=== PATIENT | female | born 1945 | race Caucasian/White ===

== ENCOUNTER 2016-08-03 21:24 | Emergency (ER) | payer MEDICARE, OTHER ==
[~2016-08-03 21:24] MED LIST: /AMLO25TA PO; /ESOM40CA PO; /PANT40TA; /WARF3TA PO; ACTO75TA; ARTIDRO OU; ASPI81TA85 PO; ATEN25TA PO; CALCIUM CITRATE + D PO; CLAR10CA3 PO; CLON1TAB PO; DARV100T; LIPI20TA PO; MACR50CA; OYST500T; PAME50CA; PROP50TA3 PO; PROPYLTHIOURACIL; TRAV0.00 OU; TRAVATAN OU; VITA-115 PO; VITAMIN D50000 UNT; [UNRECOGNIZED DRUG - OTHER]; astelin
[2016-08-03] MEDS ORDERED: GI COCKTAIL 50ML BTL(HYOSCYAMINE/MAALOX/LIDOCAINE VISCOUS)(1:3:1) As Ordered ONE (22:02)
[2016-08-03] MEDS ORDERED: ASPIRIN 81 MG CHEW TABLET As Ordered ONE (22:02)
[2016-08-03 22:13] LABS: BASO % 0.8 % (0.0-1.0); EOS # 0.2 K/mm3 (0.0-0.50); EOS % 3.2 % (0.0-3.0); LARGE UNSTAINED CELL # 0.2 K/mm3 (0.0-0.4); LARGE UNSTAINED CELL % 3.3 % (0.0-4.0); LYMPH # 1.8 K/mm3 (1.5-4.5); LYMPH % 26.3 % (24.0-44.0); MEAN CORPUSCULAR HEMOGLOBIN 29.8 pg (27.0-33.0); MEAN CORPUSCULAR HGB CONC 32.6 g/dl (32.0-36.5); MEAN CORPUSCULAR VOLUME 91.3 fl (80.0-96.0); MONO # 0.4 K/mm3 (0.0-0.8); MONO % 6.5 % (0.0-5.0); PLATELET COUNT, AUTOMATED 223 k/mm3 (150-450); RED CELL DISTRIBUTION WIDTH 13.1 % (11.5-14.5); WHITE BLOOD COUNT 6.7 K/mm3 (4.0-10.0)
[2016-08-03 22:16] LABS: INR 2.64
[2016-08-03 22:19] LABS: ANION GAP 8 MEQ/L (8-16); BLOOD UREA NITROGEN 16 MG/DL (7-18); CALCIUM LEVEL 8.9 MG/DL (8.8-10.2); CARBON DIOXIDE LEVEL 30 MEQ/L (21-32); CHLORIDE LEVEL 104 MEQ/L (98-107); CREATININE FOR GFR 0.93 MG/DL (0.55-1.02); GLOMERULAR FILTRATION RATE > 60.0 (>39); GLUCOSE, FASTING 115 MG/DL (83-110); POTASSIUM SERUM 3.8 MEQ/L (3.5-5.1); SODIUM LEVEL 142 MEQ/L (136-145)
[2016-08-03] MEDS ORDERED: KETOROLAC 30 MG/ML VIAL (J1885) As Ordered ONE (22:45)
--- NOTE | 2016-08-03 23:01 | REP ---
Clinical: Chest pain . Comparison: 02/27/2016 . Findings: The mediastinum and cardiac silhouette are stable and within normal limits for portable technique. The lung oh are clear without acute consolidation, effusion, or pneumothorax. Skeletal structures are intact. Impression: Normal portable chest x-ray Signed by Tae Qiu MD 08/03/2016 10:52 P
--- NOTE | 2016-08-04 00:26 | EDDOCDS ---
Nurse's Notes [facility] Name: Corina Estrada Age: 70 yrs Sex: Female : 1945 Arrival Date: 08/03/2016 Time: 21:24 Bed Family 1 Private MD: [place] [facility] [place]: Chest pain, unspecified Presentation: 08/03 21:31 Presenting complaint: Patient states: she has chest pain that started this morning. Pt ms18 thought it was just gas, but the pain got worse. 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 Adult Sepsis Screening: The patient does not have new or worsening altered mentation. Patient's respiratory rate is less than 22. Systolic blood pressure is greater than 100. Patient has a qSOFA score of 0- Negative Sepsis Screen. Suicide/Homicide risk assessment- the patient denies having any suicidal and/or homicidal ideations and does not present with any other emotional, behavioral or mental health complaints. 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 Transition of care: patient was not received from another setting of care. Red Flag criteria, patient assessed and taken directly to a bed. 21:31 Acuity: ROMEL Level 2 ms18 21:31 Method Of Arrival: Walkin/Carried/Asstd ms18 Triage Assessment: 21:37 General: Appears distressed, Behavior is anxious. Pain: Location: mid-sternal area Pain ms18 currently is 10 out of 10 on a pain scale. Pain radiates to left arm. Neurological: Level of Consciousness is awake, alert, obeys commands, Oriented to person, place, time. Cardiovascular: Chest pain is described as severe, quality is pressure, squeezing, radiates to left arm(s) back scapula episodes are continuous began this morning. Respiratory: Airway is patent Respiratory effort is even, unlabored. Derm: Skin is pink, warm & dry. Musculoskeletal:. Historical: - Allergies: Ciprofloxacin HCl; Codeine Sulfate; Compazine; IV Dye; Morphine; Reglan; SULFA (SULFONAMIDES); Talwin; - Home Meds: 1. Coumadin 2.5 mg Oral tab 1 tab once daily 2. Klonopin 1 mg Oral tab 1 tab 2 times per day 3. Lipitor 40 mg Oral tab 1 tab once daily 4. Nexium 40 mg Oral cpDR 1 cap 2 times per day 5. Vitamin D Oral 4000 unit daily 6. amlodipine 2.5 mg Oral tab 1 tab as needed 7. Atenolol 12.5mg Oral 1 tab as needed - PMHx: DVTx 4; Glaucoma; Hypercholesterolemia; Hypertension; Hyperthyroidism; Osteoporosis; PE X 2; Polio; COPD; - PSHx: 7 abd surgeries; ; Hernia repair- Umbilical; Cholecystectomy; Tonsillectomy; Hysteroscopy; Appendectomy; - Social history: Smoking status: Patient states former smoker of tobacco. No barriers to communication noted, The patient speaks fluent Danish. - Family history: Not pertinent. - : The pt / caregiver states he / she is not on a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. Home medication list is obtained from the patient. - Exposure Risk Screening:: None identified. Screenin:13 Screening information is obtained from the patient. Fall risk: No risks identified. cf2 Assistance ADL's: requires no assistance with activities of daily living. Abuse/DV Screen: The patient / caregiver reports he/she is: not in a situation that causes fear, pain or injury. Nutritional screening: No deficits noted. Advance Directives: Further advance directive information is declined. home support is adequate. Assessment: 22:13 General: Appears in no apparent distress, comfortable, Behavior is appropriate for age, cf2 cooperative, Denies fever, feeling ill, fatigue, chills. Pain: Denies pain. Neurological: No deficits noted. EENT: No deficits noted. Cardiovascular: Heart tones Edema is absent. Pulses are all present. Rhythm is regular Chest pain is aggravated by lying flat Chest pain began 1 day ago Reports Nausea Denies fatigue, palpitations, syncope. Respiratory: No deficits noted. GI: No deficits noted. : No deficits noted. Derm: No deficits noted. Musculoskeletal: No deficits noted. Injury Description: No known injury. 08/04 00:07 Reassessment: Patient appears in no apparent distress at this time. Patient denies pain cf2 at this time. Patient states feeling better. Patient states symptoms have improved. Adult Sepsis Screening: The patient does not have new or worsening altered mentation. Patient's respiratory rate is less than 22. Systolic blood pressure is greater than 100. Patient has a qSOFA score of 0- Negative Sepsis Screen. Vital Signs: 08/03 21:25 BP 159 / 102; Pulse 95; Resp 20 S; Temp 96.1(T); Pulse Ox 100% on R/A; Weight 67.59 kg dd6 (R); Height 5 ft. 5 in. (165.10 cm) (R); Pain 9/10; 23:51 BP 114 / 61; Pulse 73; Resp 18; Temp 97.0(O); Pulse Ox 100% on R/A; raquel 21:25 Body Mass Index 24.79 (67.59 kg, 165.10 cm) dd6 Vitals: 21:25 Log In Time: August 03, 2016 at 21:25. RN notified that patient meets Red Flag dd6 criteria. ED Course: 21:24 Patient visited by Zachery Hall PCA. dd6 21:24 NO PRIMARY PHYSICIAN, . is Private Physician. dd6 21:24 TRACY Garcia is Private Physician. dd6 21:24 Patient moved to Waiting dd6 21:26 Patient moved to 10 cz 21:27 Patient visited by Zachery Hall PCA. dd6 21:32 Triage Initiated ms18 21:38 Adela Ramirez,ARIANNA is Primary Nurse. cf2 21:38 Patient visited by Adela Ramirez RN. cf2 21:42 Abel Valdez FNP is PHCP. ke 21:42 Patient visited by Abel Valdez FNP. ke 21:42 Patient visited by Abel Valdez FNP. ke 21:42 EKG done. (by ED staff). Reviewed by Axel Genao MD. jmv 21:43 Pt greeted and oriented to ED. Patient advised of names of staff involved in care, [facility] location of call scott, wait times and NPO status. Accompanied by Family Member, Patient has correct armband on for positive identification. Placed in gown. Bed in low position. Call light in reach. Side rails up X2. surveillance monitor on. Pulse ox on. NIBP on. 21:44 Patient visited by Lavell Choudhury PCA. jmv 22:13 Patient visited by Adela Ramirez,ARIANNA. cf2 22:13 The patient / caregiver is instructed regarding the plan of care and ED course. Door cf2 closed. Noise minimized. Visitors limited. Lights dimmed. Verbal reassurance given. Warm blanket given. Pillow given. Head of bed elevated. Diet: Patient given ice chips. 22:13 No procedures done that require assistance. cf2 22:39 Patient visited by Adela Ramirez RN. cf2 23:06 Patient visited by Adela Ramirez RN. cf2 23:35 Patient visited by Abel Valdez FNP. ke 23:39 Jose [facility] is Referral Physician. ke 23:39 Rudy Andersen is Referral Physician. ke 23:43 portable chest Returned. EDMS 23:52 [facility] Payment Agreement was scanned into [employer] and attached to record. zo 01 00:07 Patient visited by Adela Ramirez RN. cf2 00:07 Inserted saline lock: 20 gauge in right antecubital area and blood collected. cf2 00:22 Patient moved to Family 1 aug 00:25 Patient visited by Adela Ramirez RN. cf2 00:25 Axel Genao MD is Attending Physician. cf2 Administered Medications: 08/03 22:10 Drug: Aspirin 324 mg [aspirin 81 mg chewable tablet (4 tabs)] Route: PO; cf2 22:10 Drug: GI Cocktail - (Alum-Mag Hydroxide-Simeth Suspension 225 mg-200 mg-25 mg/5 mL 30 cf2 ml, Lidocaine Liquid 2 % 10 ml, Hyoscyamine Liquid 10 ml) Route: PO; 22:40 Drug: ketorolac 30 mg [ketorolac 30 mg/mL (1 mL) injection solution (1 mL)] Route: IVP; cf2 Site: right antecubital; Order Results: Lab Order: Basic Metabolic Profile; SPEC'M 08/03/16 21:40 Test: GLUCOSE, FASTING; Value: 115; Range: 83-110; Abnormal: Above high normal; Units: MG/DL; Status: F Test: BLOOD UREA NITROGEN; Value: 16; Range: 7-18; Units: MG/DL; Status: F Test: CREATININE FOR GFR; Value: 0.93; Range: 0.55-1.02; Units: MG/DL; Status: F Test: GLOMERULAR FILTRATION RATE; Value: > 60.0; Range: >39; Status: F Test: SODIUM LEVEL; Value: 142; Range: 136-145; Units: MEQ/L; Status: F Test: POTASSIUM SERUM; Value: 3.8; Range: 3.5-5.1; Units: MEQ/L; Status: F Test: CHLORIDE LEVEL; Value: 104; Range: 98-107; Units: MEQ/L; Status: F Test: CARBON DIOXIDE LEVEL; Value: 30; Range: 21-32; Units: MEQ/L; Status: F Test: ANION GAP; Value: 8; Range: 8-16; Units: MEQ/L; Status: F Test: CALCIUM LEVEL; Value: 8.9; Range: 8.8-10.2; Units: MG/DL; Status: F Test Note: ; Units are mL/min/1.73 m2 Chronic Kidney Disease Staging per NKF: Stage I & II GFR >=60 Normal to Mildly Decreased Stage III GFR 30-59 Moderately Decreased Stage IV GFR 15-29 Severely Decreased Stage V GFR <15 Very Little GFR Left ESRD GFR <15 on MANAGER EMPLOYMENT Lab Order: CBC with Diff; SPEC'M 08/03/16 21:40 Test: WHITE BLOOD COUNT; Value: 6.7; Range: 4.0-10.0; Units: K/mm3; Status: F Test: RED BLOOD COUNT; Value: 4.50; Range: 4.00-5.40; Units: M/mm3; Status: F Test: HEMOGLOBIN; Value: 13.4; Range: 12.0-16.0; Units: g/dl; Status: F Test: HEMATOCRIT; Value: 41.1; Range: 36.0-47.0; Units: %; Status: F Test: MEAN CORPUSCULAR VOLUME; Value: 91.3; Range: 80.0-96.0; Units: fl; Status: F Test: MEAN CORPUSCULAR HEMOGLOBIN; Value: 29.8; Range: 27.0-33.0; Units: pg; Status: F Test: MEAN CORPUSCULAR HGB CONC; Value: 32.6; Range: 32.0-36.5; Units: g/dl; Status: F Test: RED CELL DISTRIBUTION WIDTH; Value: 13.1; Range: 11.5-14.5; Units: %; Status: F Test: PLATELET COUNT, AUTOMATED; Value: 223; Range: 150-450; Units: k/mm3; Status: F Test: NEUTROPHILS %; Value: 60.0; Range: 36.0-66.0; Units: %; Status: F Test: LYMPH %; Value: 26.3; Range: 24.0-44.0; Units: %; Status: F Test: MONO %; Value: 6.5; Range: 0.0-5.0; Abnormal: Above high normal; Units: %; Status: F Test: EOS %; Value: 3.2; Range: 0.0-3.0; Abnormal: Above high normal; Units: %; Status: F Test: BASO %; Value: 0.8; Range: 0.0-1.0; Units: %; Status: F Test: LARGE UNSTAINED CELL %; Value: 3.3; Range: 0.0-4.0; Units: %; Status: F Test: NEUTROPHILS #; Value: 4.0; Range: 1.8-7.7; Units: K/mm3; Status: F Test: LYMPH #; Value: 1.8; Range: 1.5-4.5; Units: K/mm3; Status: F Test: MONO #; Value: 0.4; Range: 0.0-0.8; Units: K/mm3; Status: F Test: EOS #; Value: 0.2; Range: 0.0-0.50; Units: K/mm3; Status: F Test: BASO #; Value: 0.0; Range: 0.0-0.2; Units: K/mm3; Status: F Test: LARGE UNSTAINED CELL #; Value: 0.2; Range: 0.0-0.4; Units: K/mm3; Status: F Lab Order: Cardiac Injury Profile; SPEC'M 08/03/16 21:40 Test: CPK CREATINE PHOSPHOKINASE; Value: 69; Range: 26-192; Units: U/L; Status: F Test: CK-MB VALUE MASS; Value: 1.0; Range: 0.0-3.6; Units: NG/ML; Status: F Test: MB/CK RELATIVE INDEX; Value: 1.44; Range: < OR =4; Status: F Test Note: ; DIAGNOSIS CRITERIA MMB ng/ml Relative Index (RI) NON-AMI < or = 5 N/A PEREIRA ZONE > 5 < or = 4 AMI > 5 > 4 Lab Order: Prothrombin Time Profile\E\INR; SPEC'M 08/03/16 21:40 Test: PROTHROMBIN TIME; Value: 28.2; Range: 12.3-14.5; Abnormal: Above high normal; Units: SECONDS; Status: F Test: INR; Value: 2.64; Status: F Test Note: ; THERAPUTIC HUMAN INR VALUES INDICATIONS NORMAL RANGES PROPHYLAXIS/TREATMENT OF: VENOUS THROMBOSIS 2.0-3.0 PULMONARY EMBOLISM 2.0-3.0 PREVENTION OF SYSTEMIC EMBOLISM FROM: TISSUE HEART VALVES 2.0-3.0 ACUTE MYOCARDIAL INFARCTION 2.0-3.0 VALVULAR HEART DISEASE 2.0-3.0 ATRIAL FIBRILLATION 2.0-3.0 MECHANICAL VALVES(HIGH RISK) 2.5-3.5 RECURRENT MYOCARDIAL INFARCTION 2.5-3.5 Lab Order: Troponin; SPEC'M 08/03/16 21:40 Test: TROPONIN I; Value: < 0.02; Range: < 0.10; Units: NG/ML; Status: F Test Note: ; Troponin I Reference Interval for RadioFrame LOCI: 99th Percentile= 0.00-0.045 ng/ml Risk Stratification: <= 0.10 ng/ml Decreased Risk for Adverse Clinical Events. 0.10-1.50 ng/ml Increased Risk for Adverse Clinical Events. Evaluation of additional criterion and/or repeat testing in 2-6 hours is suggested to rule out myocardial damage. >= 1.50 ng/ml Indicative of Myocardial Injury. Radiology Order: portable chest Test: portable chest REASON FOR EXAMINATION: Chest Pain; Clinical: Chest pain .; ; Comparison: 02/27/2016 .; ; Findings:; The mediastinum and cardiac silhouette are stable and within normal limits for; portable technique. The lung oh are clear without acute consolidation,; effusion, or pneumothorax. Skeletal structures are intact.; ; Impression:; Normal portable chest x-ray; ; ; Signed by; Tae Qiu MD 08/03/2016 10:52 P; Outcome: 23:39 Discharge ordered by Provider. tyesha 08/04 00:07 Condition: good Condition: stable. Discharge instructions given to patient. No special cf2 radiology studies were completed. Property :Personal belongings accompany Pt. 00:25 Discharge Assessment: Patient awake, alert and oriented x 3. No cognitive and/or cf2 functional deficits noted. Patient verbalized understanding of disposition instructions. Patient awake and alert. Oriented to person, place and time. patient administered narcotics - no. The following High Risk Discharge criteria are identified: None. Discharged to home ambulatory, with family. 00:25 Patient left the ED. cf2 Signatures: Dispatcher [employer] EDMS Lakshmi Bella RN RN jan Zecher, Calvin, Abel Garcia RN, SR ACCOUNT EXECUTIVE SR ACCOUNT EXECUTIVE Danny Alberto Daniell, RN STARS RN STARS dd6 Franca Cool, RN STARS RN STARS raquel Marisel Crump RN RN [id number] Adela Ramirez RN RN cf2 Lavell Choudhury, RN STARS RN STARS jmv MTDD
--- NOTE | 2016-08-04 00:26 | EDDOCDS ---
Physician Documentation [facility] Name: Corina Estrada Age: 70 yrs Sex: Female : 1945 Arrival Date: 08/03/2016 Time: 21:24 Bed Family 1 Private MD: TRACY Garcia Disposition: 08/03/16 23:39 Discharged to Home/Self Care. Impression: Chest pain, unspecified. - Condition is Stable. - Discharge Instructions: Nonspecific Chest Pain. - Medication Reconciliation, Local Pharmacy Hours form. - Follow up: TRACY Garcia; When: 2 - 3 days; Reason: Recheck today's complaints, Continuance of care. Follow up: Rudy Andersen; When: Call to arrange an appointment; Reason: Recheck today's complaints, Continuance of care. - Problem is an ongoing problem. - Symptoms are unchanged. Historical: - Allergies: Ciprofloxacin HCl; Codeine Sulfate; Compazine; IV Dye; Morphine; Reglan; SULFA (SULFONAMIDES); Talwin; - Home Meds: 1. Coumadin 2.5 mg Oral tab 1 tab once daily 2. Klonopin 1 mg Oral tab 1 tab 2 times per day 3. Lipitor 40 mg Oral tab 1 tab once daily 4. Nexium 40 mg Oral cpDR 1 cap 2 times per day 5. Vitamin D Oral 4000 unit daily 6. amlodipine 2.5 mg Oral tab 1 tab as needed 7. Atenolol 12.5mg Oral 1 tab as needed - PMHx: DVTx 4; Glaucoma; Hypercholesterolemia; Hypertension; Hyperthyroidism; Osteoporosis; PE X 2; Polio; COPD; - PSHx: 7 abd surgeries; ; Hernia repair- Umbilical; Cholecystectomy; Tonsillectomy; Hysteroscopy; Appendectomy; - Social history: Smoking status: Patient states former smoker of tobacco. No barriers to communication noted, The patient speaks fluent Slovenian. - Family history: Not pertinent. - : The pt / caregiver states he / she is not on a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. Home medication list is obtained from the patient. - Exposure Risk Screening:: None identified. Vital Signs: 08/03 21:25 BP 159 / 102; Pulse 95; Resp 20 S; Temp 96.1(T); Pulse Ox 100% on R/A; Weight 67.59 kg dd6 / 149.01 lbs (R); Height 5 ft. 5 in. (165.10 cm) (R); Pain 9/10; 23:51 BP 114 / 61; Pulse 73; Resp 18; Temp 97.0(O); Pulse Ox 100% on R/A; raquel 21:25 Body Mass Index 24.79 (67.59 kg, 165.10 cm) dd6 MDM: 21:27 ECG WITH READING ER PHYS+CARDIAG ordered. EDMS 21:48 Aspirin Chewable Tablet 324 mg PO once ordered. ke 21:48 Power Plant Electrician/Pulse Ox/q 30 min VS ordered. ke 21:48 IV Saline Lock ordered. ke 21:48 Rhythm Strip to chart ordered. ke 21:48 Undress patient appropriately for examination ordered. ke 21:48 GI Cocktail - (Alum-Mag Hydroxide-Simeth 30 ml, Lidocaine 10 ml, Hyoscyamine 10 ml) PO ke once; Pre-mixed 50mL unit dose ordered. 21:50 Basic Metabolic Profile Ordered. EDMS 21:50 CBC with Diff Ordered. EDMS 21:50 Cardiac Injury Profile Ordered. EDMS 21:50 Prothrombin Time Profile\E\INR Ordered. EDMS 21:50 Troponin Ordered. EDMS 21:50 portable chest Ordered. EDMS 22:27 Basic Metabolic Profile Reviewed. ke 22:27 CBC with Diff Reviewed. ke 22:27 Prothrombin Time Profile\E\INR Reviewed. ke 22:27 Cardiac Injury Profile Reviewed. ke 22:27 Troponin Reviewed. ke 22:36 ketorolac 30 mg IVP once ordered. ke 23:51 Financial registration complete. zo 23:52 [facility] Payment Agreement was scanned into [employer] and attached to record. zo Administered Medications: 22:10 Drug: Aspirin 324 mg [aspirin 81 mg chewable tablet (4 tabs)] Route: PO; cf2 22:10 Drug: GI Cocktail - (Alum-Mag Hydroxide-Simeth Suspension 225 mg-200 mg-25 mg/5 mL 30 cf2 ml, Lidocaine Liquid 2 % 10 ml, Hyoscyamine Liquid 10 ml) Route: PO; 22:40 Drug: ketorolac 30 mg [ketorolac 30 mg/mL (1 mL) injection solution (1 mL)] Route: IVP; cf2 Site: right antecubital; Signatures: Dispatcher [employer] EDMS Abel Valdez FNP PRIMARY SPECIAL EDUCATORDanny Dozier Mallory, RN RN ms18 Adela RamirezRN RN cf2 The chart was reviewed and I authenticate all verbal orders and agree with the evaluation and treatment provided.Attachments: 23:52 [facility] Payment Agreement zo MTDD
--- NOTE | 2016-08-04 08:13 | ECGEPIP ---
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
--- NOTE | 2016-08-06 01:26 | EDDOCDS ---
Physician Documentation [facility] Name: Corina Estrada Age: 70 yrs Sex: Female : 1945 Arrival Date: 08/03/2016 Time: 21:24 Bed Family 1 Private MD: TRACY Garcia Disposition: 08/03/16 23:39 Discharged to Home/Self Care. Impression: Chest pain, unspecified. - Condition is Stable. - Discharge Instructions: Nonspecific Chest Pain. - Medication Reconciliation, Local Pharmacy Hours form. - Follow up: TRACY Garcia; When: 2 - 3 days; Reason: Recheck today's complaints, Continuance of care. Follow up: Rudy Andersen; When: Call to arrange an appointment; Reason: Recheck today's complaints, Continuance of care. - Problem is an ongoing problem. - Symptoms are unchanged. Historical: - Allergies: Ciprofloxacin HCl; Codeine Sulfate; Compazine; IV Dye; Morphine; Reglan; SULFA (SULFONAMIDES); Talwin; - Home Meds: 1. Coumadin 2.5 mg Oral tab 1 tab once daily 2. Klonopin 1 mg Oral tab 1 tab 2 times per day 3. Lipitor 40 mg Oral tab 1 tab once daily 4. Nexium 40 mg Oral cpDR 1 cap 2 times per day 5. Vitamin D Oral 4000 unit daily 6. amlodipine 2.5 mg Oral tab 1 tab as needed 7. Atenolol 12.5mg Oral 1 tab as needed - PMHx: DVTx 4; Glaucoma; Hypercholesterolemia; Hypertension; Hyperthyroidism; Osteoporosis; PE X 2; Polio; COPD; - PSHx: 7 abd surgeries; ; Hernia repair- Umbilical; Cholecystectomy; Tonsillectomy; Hysteroscopy; Appendectomy; - Social history: Smoking status: Patient states former smoker of tobacco. No barriers to communication noted, The patient speaks fluent Belarusian. - Family history: Not pertinent. - : The pt / caregiver states he / she is not on a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. Home medication list is obtained from the patient. - Exposure Risk Screening:: None identified. Vital Signs: 08/03 21:25 BP 159 / 102; Pulse 95; Resp 20 S; Temp 96.1(T); Pulse Ox 100% on R/A; Weight 67.59 kg dd6 / 149.01 lbs (R); Height 5 ft. 5 in. (165.10 cm) (R); Pain 9/10; 23:51 BP 114 / 61; Pulse 73; Resp 18; Temp 97.0(O); Pulse Ox 100% on R/A; raquel 21:25 Body Mass Index 24.79 (67.59 kg, 165.10 cm) dd6 MDM: 21:27 ECG WITH READING ER PHYS+CARDIAG ordered. EDMS 21:48 Aspirin Chewable Tablet 324 mg PO once ordered. ke 21:48 Regulatory Attorney/Pulse Ox/q 30 min VS ordered. ke 21:48 IV Saline Lock ordered. ke 21:48 Rhythm Strip to chart ordered. ke 21:48 Undress patient appropriately for examination ordered. ke 21:48 GI Cocktail - (Alum-Mag Hydroxide-Simeth 30 ml, Lidocaine 10 ml, Hyoscyamine 10 ml) PO ke once; Pre-mixed 50mL unit dose ordered. 21:50 Basic Metabolic Profile Ordered. EDMS 21:50 CBC with Diff Ordered. EDMS 21:50 Cardiac Injury Profile Ordered. EDMS 21:50 Prothrombin Time Profile\E\INR Ordered. EDMS 21:50 Troponin Ordered. EDMS 21:50 portable chest Ordered. EDMS 22:27 Basic Metabolic Profile Reviewed. ke 22:27 CBC with Diff Reviewed. ke 22:27 Prothrombin Time Profile\E\INR Reviewed. ke 22:27 Cardiac Injury Profile Reviewed. ke 22:27 Troponin Reviewed. ke 22:36 ketorolac 30 mg IVP once ordered. ke 23:51 Financial registration complete. zo 23:52 [facility] Payment Agreement was scanned into [employer] and attached to record. zo 08/04 01:39 T-Sheet-- Draft Copy was scanned into [employer] and attached to record. lja 09:15 ECG/EKG was scanned into [employer] and attached to record. gb Administered Medications: 08/03 22:10 Drug: Aspirin 324 mg [aspirin 81 mg chewable tablet (4 tabs)] Route: PO; cf2 22:10 Drug: GI Cocktail - (Alum-Mag Hydroxide-Simeth Suspension 225 mg-200 mg-25 mg/5 mL 30 cf2 ml, Lidocaine Liquid 2 % 10 ml, Hyoscyamine Liquid 10 ml) Route: PO; 22:40 Drug: ketorolac 30 mg [ketorolac 30 mg/mL (1 mL) injection solution (1 mL)] Route: IVP; cf2 Site: right antecubital; Signatures: Dispatcher [employer] EDYessica Navarro, Reg Reg gb Abel Valdez, DOOR FRAMER DOOR FRAMER Danny Alberto Mallory, RN RN ms18 Arel, Adela Brush RN RN cf2 The chart was reviewed and I authenticate all verbal orders and agree with the evaluation and treatment provided.Attachments: 23:52 [facility] Payment Agreement zo 08/04 01:39 T-Sheet-- Draft Copy [facility] 09:15 ECG/EKG haylee Chart Complete MTDD
--- NOTE | 2016-08-06 01:26 | EDDOCDS ---
Physician Documentation [facility] Name: Corina Estrada Age: 70 yrs Sex: Female : 1945 Arrival Date: 08/03/2016 Time: 21:24 Bed Family 1 Private MD: TRACY Garcia Disposition: 08/03/16 23:39 Discharged to Home/Self Care. Impression: Chest pain, unspecified. - Condition is Stable. - Discharge Instructions: Nonspecific Chest Pain. - Medication Reconciliation, Local Pharmacy Hours form. - Follow up: TRACY Garcia; When: 2 - 3 days; Reason: Recheck today's complaints, Continuance of care. Follow up: Rudy Andersen; When: Call to arrange an appointment; Reason: Recheck today's complaints, Continuance of care. - Problem is an ongoing problem. - Symptoms are unchanged. Historical: - Allergies: Ciprofloxacin HCl; Codeine Sulfate; Compazine; IV Dye; Morphine; Reglan; SULFA (SULFONAMIDES); Talwin; - Home Meds: 1. Coumadin 2.5 mg Oral tab 1 tab once daily 2. Klonopin 1 mg Oral tab 1 tab 2 times per day 3. Lipitor 40 mg Oral tab 1 tab once daily 4. Nexium 40 mg Oral cpDR 1 cap 2 times per day 5. Vitamin D Oral 4000 unit daily 6. amlodipine 2.5 mg Oral tab 1 tab as needed 7. Atenolol 12.5mg Oral 1 tab as needed - PMHx: DVTx 4; Glaucoma; Hypercholesterolemia; Hypertension; Hyperthyroidism; Osteoporosis; PE X 2; Polio; COPD; - PSHx: 7 abd surgeries; ; Hernia repair- Umbilical; Cholecystectomy; Tonsillectomy; Hysteroscopy; Appendectomy; - Social history: Smoking status: Patient states former smoker of tobacco. No barriers to communication noted, The patient speaks fluent Bangladeshi. - Family history: Not pertinent. - : The pt / caregiver states he / she is not on a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. Home medication list is obtained from the patient. - Exposure Risk Screening:: None identified. Vital Signs: 08/03 21:25 BP 159 / 102; Pulse 95; Resp 20 S; Temp 96.1(T); Pulse Ox 100% on R/A; Weight 67.59 kg dd6 / 149.01 lbs (R); Height 5 ft. 5 in. (165.10 cm) (R); Pain 9/10; 23:51 BP 114 / 61; Pulse 73; Resp 18; Temp 97.0(O); Pulse Ox 100% on R/A; raquel 21:25 Body Mass Index 24.79 (67.59 kg, 165.10 cm) dd6 MDM: 21:27 ECG WITH READING ER PHYS+CARDIAG ordered. EDMS 21:48 Aspirin Chewable Tablet 324 mg PO once ordered. ke 21:48 Service Shop Foreman/Pulse Ox/q 30 min VS ordered. ke 21:48 IV Saline Lock ordered. ke 21:48 Rhythm Strip to chart ordered. ke 21:48 Undress patient appropriately for examination ordered. ke 21:48 GI Cocktail - (Alum-Mag Hydroxide-Simeth 30 ml, Lidocaine 10 ml, Hyoscyamine 10 ml) PO ke once; Pre-mixed 50mL unit dose ordered. 21:50 Basic Metabolic Profile Ordered. EDMS 21:50 CBC with Diff Ordered. EDMS 21:50 Cardiac Injury Profile Ordered. EDMS 21:50 Prothrombin Time Profile\E\INR Ordered. EDMS 21:50 Troponin Ordered. EDMS 21:50 portable chest Ordered. EDMS 22:27 Basic Metabolic Profile Reviewed. ke 22:27 CBC with Diff Reviewed. ke 22:27 Prothrombin Time Profile\E\INR Reviewed. ke 22:27 Cardiac Injury Profile Reviewed. ke 22:27 Troponin Reviewed. ke 22:36 ketorolac 30 mg IVP once ordered. ke 23:51 Financial registration complete. zo 23:52 [facility] Payment Agreement was scanned into [employer] and attached to record. zo 08/04 01:39 T-Sheet-- Draft Copy was scanned into [employer] and attached to record. lja 09:15 ECG/EKG was scanned into [employer] and attached to record. gb Administered Medications: 08/03 22:10 Drug: Aspirin 324 mg [aspirin 81 mg chewable tablet (4 tabs)] Route: PO; cf2 22:10 Drug: GI Cocktail - (Alum-Mag Hydroxide-Simeth Suspension 225 mg-200 mg-25 mg/5 mL 30 cf2 ml, Lidocaine Liquid 2 % 10 ml, Hyoscyamine Liquid 10 ml) Route: PO; 22:40 Drug: ketorolac 30 mg [ketorolac 30 mg/mL (1 mL) injection solution (1 mL)] Route: IVP; cf2 Site: right antecubital; Signatures: Dispatcher [employer] EDYessica Navarro, Reg Reg gb Abel Valdez, FUNCTIONAL ANALYST FUNCTIONAL ANALYST Danny Alberto Mallory, RN RN ms18 Arel, Adela Brush RN RN cf2 The chart was reviewed and I authenticate all verbal orders and agree with the evaluation and treatment provided.Attachments: 23:52 [facility] Payment Agreement zo 08/04 01:39 T-Sheet-- Draft Copy [facility] 09:15 ECG/EKG haylee Chart Complete MTDD
--- NOTE | 2016-08-06 01:26 | EDDOCDS ---
Nurse's Notes [facility] Name: Erik Bolden Age: 70 yrs Sex: Female : 1945 Arrival Date: 08/03/2016 Time: 21:24 Bed Family 1 Private MD: Jose JD [facility] Diagnosis: Chest pain, unspecified Presentation: 08/03 21:31 Presenting complaint: Patient states: she has chest pain that started this morning. Pt ms18 thought it was just gas, but the pain got worse. 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 Adult Sepsis Screening: The patient does not have new or worsening altered mentation. Patient's respiratory rate is less than 22. Systolic blood pressure is greater than 100. Patient has a qSOFA score of 0- Negative Sepsis Screen. Suicide/Homicide risk assessment- the patient denies having any suicidal and/or homicidal ideations and does not present with any other emotional, behavioral or mental health complaints. Status: Patient is not a business services intern or dependent. Transition of care: patient was not received from another setting of care. Red Flag criteria, patient assessed and taken directly to a bed. 21:31 Acuity: ROMEL Level 2 ms18 21:31 Method Of Arrival: Walkin/Carried/Asstd ms18 Triage Assessment: 21:37 General: Appears distressed, Behavior is anxious. Pain: Location: mid-sternal area Pain ms18 currently is 10 out of 10 on a pain scale. Pain radiates to left arm. Neurological: Level of Consciousness is awake, alert, obeys commands, Oriented to person, place, time. Cardiovascular: Chest pain is described as severe, quality is pressure, squeezing, radiates to left arm(s) back scapula episodes are continuous began this morning. Respiratory: Airway is patent Respiratory effort is even, unlabored. Derm: Skin is pink, warm & dry. Musculoskeletal:. Historical: - Allergies: Ciprofloxacin HCl; Codeine Sulfate; Compazine; IV Dye; Morphine; Reglan; SULFA (SULFONAMIDES); Talwin; - Home Meds: 1. Coumadin 2.5 mg Oral tab 1 tab once daily 2. Klonopin 1 mg Oral tab 1 tab 2 times per day 3. Lipitor 40 mg Oral tab 1 tab once daily 4. Nexium 40 mg Oral cpDR 1 cap 2 times per day 5. Vitamin D Oral 4000 unit daily 6. amlodipine 2.5 mg Oral tab 1 tab as needed 7. Atenolol 12.5mg Oral 1 tab as needed - PMHx: DVTx 4; Glaucoma; Hypercholesterolemia; Hypertension; Hyperthyroidism; Osteoporosis; PE X 2; Polio; COPD; - PSHx: 7 abd surgeries; ; Hernia repair- Umbilical; Cholecystectomy; Tonsillectomy; Hysteroscopy; Appendectomy; - Social history: Smoking status: Patient states former smoker of tobacco. No barriers to communication noted, The patient speaks fluent Estonian. - Family history: Not pertinent. - : The pt / caregiver states he / she is not on a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. Home medication list is obtained from the patient. - Exposure Risk Screening:: None identified. Screenin:13 Screening information is obtained from the patient. Fall risk: No risks identified. cf2 Assistance ADL's: requires no assistance with activities of daily living. Abuse/DV Screen: The patient / caregiver reports he/she is: not in a situation that causes fear, pain or injury. Nutritional screening: No deficits noted. Advance Directives: Further advance directive information is declined. home support is adequate. Assessment: 22:13 General: Appears in no apparent distress, comfortable, Behavior is appropriate for age, cf2 cooperative, Denies fever, feeling ill, fatigue, chills. Pain: Denies pain. Neurological: No deficits noted. EENT: No deficits noted. Cardiovascular: Heart tones Edema is absent. Pulses are all present. Rhythm is regular Chest pain is aggravated by lying flat Chest pain began 1 day ago Reports Nausea Denies fatigue, palpitations, syncope. Respiratory: No deficits noted. GI: No deficits noted. : No deficits noted. Derm: No deficits noted. Musculoskeletal: No deficits noted. Injury Description: No known injury. 08/04 00:07 Reassessment: Patient appears in no apparent distress at this time. Patient denies pain cf2 at this time. Patient states feeling better. Patient states symptoms have improved. Adult Sepsis Screening: The patient does not have new or worsening altered mentation. Patient's respiratory rate is less than 22. Systolic blood pressure is greater than 100. Patient has a qSOFA score of 0- Negative Sepsis Screen. Vital Signs: 08/03 21:25 BP 159 / 102; Pulse 95; Resp 20 S; Temp 96.1(T); Pulse Ox 100% on R/A; Weight 67.59 kg dd6 (R); Height 5 ft. 5 in. (165.10 cm) (R); Pain 9/10; 23:51 BP 114 / 61; Pulse 73; Resp 18; Temp 97.0(O); Pulse Ox 100% on R/A; raquel 21:25 Body Mass Index 24.79 (67.59 kg, 165.10 cm) dd6 Vitals: 21:25 Log In Time: August 03, 2016 at 21:25. RN notified that patient meets Red Flag dd6 criteria. ED Course: 21:24 Patient visited by Zachery Hall PCA. dd6 21:24 NO PRIMARY PHYSICIAN, . is Private Physician. dd6 21:24 TRACY Garcia is Private Physician. dd6 21:24 Patient moved to Waiting dd6 21:26 Patient moved to 10 cz 21:27 Patient visited by Zachery Hall PCA. dd6 21:32 Triage Initiated ms18 21:38 Adela Ramirez,ARIANNA is Primary Nurse. cf2 21:38 Patient visited by Adela Ramirez RN. cf2 21:42 Abel Valdez FNP is PHCP. ke 21:42 Patient visited by Abel Valdez FNP. ke 21:42 Patient visited by Abel Valdez FNP. ke 21:42 EKG done. (by ED staff). Reviewed by Axel Genao MD. jmv 21:43 Pt greeted and oriented to ED. Patient advised of names of staff involved in care, [facility] location of call [place], wait times and NPO status. Accompanied by Family Member, Patient has correct armband on for positive identification. Placed in gown. Bed in low position. Call light in reach. Side rails up X2. lunchroom monitor on. Pulse ox on. NIBP on. 21:44 Patient visited by Lavell Choudhury PCA. jmv 22:13 Patient visited by Adela Ramirez,ARIANNA. cf2 22:13 The patient / caregiver is instructed regarding the plan of care and ED course. Door cf2 closed. Noise minimized. Visitors limited. Lights dimmed. Verbal reassurance given. Warm blanket given. Pillow given. Head of bed elevated. Diet: Patient given ice chips. 22:13 No procedures done that require assistance. cf2 22:39 Patient visited by Adela Ramirez,ARIANNA. cf2 23:06 Patient visited by Adela Ramirez RN. cf2 23:35 Patient visited by Abel Valdez FNP. ke 23:39 Jose JD [facility] is Referral Physician. ke 23:39 Rudy Andersen is Referral Physician. ke 23:43 portable chest Returned. EDMS 23:52 [facility] Payment Agreement was scanned into [employer] and attached to record. zo 08/04 00:07 Patient visited by Adela Ramirez RN. cf2 00:07 Inserted saline lock: 20 gauge in right antecubital area and blood collected. cf2 00:22 Patient moved to Family 1 aug 00:25 Patient visited by Adela Ramirez,ARIANNA. cf2 00:25 Axel Genao MD is Attending Physician. cf2 01:39 T-Sheet-- Draft Copy was scanned into [employer] and attached to record. lja 08:36 EKG-ADULT Returned. EDMS 09:15 ECG/EKG was scanned into [employer] and attached to record. gb Administered Medications: 08/03 22:10 Drug: Aspirin 324 mg [aspirin 81 mg chewable tablet (4 tabs)] Route: PO; cf2 22:10 Drug: GI Cocktail - (Alum-Mag Hydroxide-Simeth Suspension 225 mg-200 mg-25 mg/5 mL 30 cf2 ml, Lidocaine Liquid 2 % 10 ml, Hyoscyamine Liquid 10 ml) Route: PO; 22:40 Drug: ketorolac 30 mg [ketorolac 30 mg/mL (1 mL) injection solution (1 mL)] Route: IVP; cf2 Site: right antecubital; Order Results: Lab Order: Basic Metabolic Profile; SPEC'M 08/03/16 21:40 Test: GLUCOSE, FASTING; Value: 115; Range: 83-110; Abnormal: Above high normal; Units: MG/DL; Status: F Test: BLOOD UREA NITROGEN; Value: 16; Range: 7-18; Units: MG/DL; Status: F Test: CREATININE FOR GFR; Value: 0.93; Range: 0.55-1.02; Units: MG/DL; Status: F Test: GLOMERULAR FILTRATION RATE; Value: > 60.0; Range: >39; Status: F Test: SODIUM LEVEL; Value: 142; Range: 136-145; Units: MEQ/L; Status: F Test: POTASSIUM SERUM; Value: 3.8; Range: 3.5-5.1; Units: MEQ/L; Status: F Test: CHLORIDE LEVEL; Value: 104; Range: 98-107; Units: MEQ/L; Status: F Test: CARBON DIOXIDE LEVEL; Value: 30; Range: 21-32; Units: MEQ/L; Status: F Test: ANION GAP; Value: 8; Range: 8-16; Units: MEQ/L; Status: F Test: CALCIUM LEVEL; Value: 8.9; Range: 8.8-10.2; Units: MG/DL; Status: F Test Note: ; Units are mL/min/1.73 m2 Chronic Kidney Disease Staging per NKF: Stage I & II GFR >=60 Normal to Mildly Decreased Stage III GFR 30-59 Moderately Decreased Stage IV GFR 15-29 Severely Decreased Stage V GFR <15 Very Little GFR Left ESRD GFR <15 on DEMO COORDINATOR Lab Order: CBC with Diff; SPEC'M 08/03/16 21:40 Test: WHITE BLOOD COUNT; Value: 6.7; Range: 4.0-10.0; Units: K/mm3; Status: F Test: RED BLOOD COUNT; Value: 4.50; Range: 4.00-5.40; Units: M/mm3; Status: F Test: HEMOGLOBIN; Value: 13.4; Range: 12.0-16.0; Units: g/dl; Status: F Test: HEMATOCRIT; Value: 41.1; Range: 36.0-47.0; Units: %; Status: F Test: MEAN CORPUSCULAR VOLUME; Value: 91.3; Range: 80.0-96.0; Units: fl; Status: F Test: MEAN CORPUSCULAR HEMOGLOBIN; Value: 29.8; Range: 27.0-33.0; Units: pg; Status: F Test: MEAN CORPUSCULAR HGB CONC; Value: 32.6; Range: 32.0-36.5; Units: g/dl; Status: F Test: RED CELL DISTRIBUTION WIDTH; Value: 13.1; Range: 11.5-14.5; Units: %; Status: F Test: PLATELET COUNT, AUTOMATED; Value: 223; Range: 150-450; Units: k/mm3; Status: F Test: NEUTROPHILS %; Value: 60.0; Range: 36.0-66.0; Units: %; Status: F Test: LYMPH %; Value: 26.3; Range: 24.0-44.0; Units: %; Status: F Test: MONO %; Value: 6.5; Range: 0.0-5.0; Abnormal: Above high normal; Units: %; Status: F Test: EOS %; Value: 3.2; Range: 0.0-3.0; Abnormal: Above high normal; Units: %; Status: F Test: BASO %; Value: 0.8; Range: 0.0-1.0; Units: %; Status: F Test: LARGE UNSTAINED CELL %; Value: 3.3; Range: 0.0-4.0; Units: %; Status: F Test: NEUTROPHILS #; Value: 4.0; Range: 1.8-7.7; Units: K/mm3; Status: F Test: LYMPH #; Value: 1.8; Range: 1.5-4.5; Units: K/mm3; Status: F Test: MONO #; Value: 0.4; Range: 0.0-0.8; Units: K/mm3; Status: F Test: EOS #; Value: 0.2; Range: 0.0-0.50; Units: K/mm3; Status: F Test: BASO #; Value: 0.0; Range: 0.0-0.2; Units: K/mm3; Status: F Test: LARGE UNSTAINED CELL #; Value: 0.2; Range: 0.0-0.4; Units: K/mm3; Status: F Lab Order: Cardiac Injury Profile; SPEC'M 08/03/16 21:40 Test: CPK CREATINE PHOSPHOKINASE; Value: 69; Range: 26-192; Units: U/L; Status: F Test: CK-MB VALUE MASS; Value: 1.0; Range: 0.0-3.6; Units: NG/ML; Status: F Test: MB/CK RELATIVE INDEX; Value: 1.44; Range: < OR =4; Status: F Test Note: ; DIAGNOSIS CRITERIA MMB ng/ml Relative Index (RI) NON-AMI < or = 5 N/A PEREIRA ZONE > 5 < or = 4 AMI > 5 > 4 Lab Order: Prothrombin Time Profile\E\INR; SPEC'M 08/03/16 21:40 Test: PROTHROMBIN TIME; Value: 28.2; Range: 12.3-14.5; Abnormal: Above high normal; Units: SECONDS; Status: F Test: INR; Value: 2.64; Status: F Test Note: ; THERAPUTIC HUMAN INR VALUES INDICATIONS NORMAL RANGES PROPHYLAXIS/TREATMENT OF: VENOUS THROMBOSIS 2.0-3.0 PULMONARY EMBOLISM 2.0-3.0 PREVENTION OF SYSTEMIC EMBOLISM FROM: TISSUE HEART VALVES 2.0-3.0 ACUTE MYOCARDIAL INFARCTION 2.0-3.0 VALVULAR HEART DISEASE 2.0-3.0 ATRIAL FIBRILLATION 2.0-3.0 MECHANICAL VALVES(HIGH RISK) 2.5-3.5 RECURRENT MYOCARDIAL INFARCTION 2.5-3.5 Lab Order: Troponin; SPEC'M 08/03/16 21:40 Test: TROPONIN I; Value: < 0.02; Range: < 0.10; Units: NG/ML; Status: F Test Note: ; Troponin I Reference Interval for Doctolib LOCI: 99th Percentile= 0.00-0.045 ng/ml Risk Stratification: <= 0.10 ng/ml Decreased Risk for Adverse Clinical Events. 0.10-1.50 ng/ml Increased Risk for Adverse Clinical Events. Evaluation of additional criterion and/or repeat testing in 2-6 hours is suggested to rule out myocardial damage. >= 1.50 ng/ml Indicative of Myocardial Injury. Radiology Order: EKG-ADULT Test: EKG-ADULT REASON FOR EXAMINATION: Chest Pain; Stationary ECG Study; [facility] - ED; ; Test Date: 2016-08-03; Pat Name: ERIK BOLDEN Department:; Room: -; Gender: F Supervisor Special Effects: kapil; : 1945 Requested By: Axel Leigh; Order Number: [id number] Antonio MD: Henny Valente; Measurements; Intervals [place]; Rate: 83 P: 73; GA: 161 QRS: 59; QRSD: 83 T: 58; QT: 370; QTc: 435; Interpretive Statements; SINUS RHYTHM; NONSPECIFIC ST T-WAVE ABNORMALITY; INCREASED RATE/DECREASED ECTOPY/NSTTW ABNORMALITY COMPARED 12/09/15; Electronically Signed On 08-04-2016 8:13:35 EST by Henny Valente; Radiology Order: portable chest Test: portable chest REASON FOR EXAMINATION: Chest Pain; Clinical: Chest pain .; ; Comparison: 02/27/2016 .; ; Findings:; The mediastinum and cardiac silhouette are stable and within normal limits for; portable technique. The lung oh are clear without acute consolidation,; effusion, or pneumothorax. Skeletal structures are intact.; ; Impression:; Normal portable chest x-ray; ; ; Signed by; Tae Qiu MD 08/03/2016 10:52 P; Outcome: 23:39 Discharge ordered by Provider. tyesha 08/04 00:07 Condition: good Condition: stable. Discharge instructions given to patient. No special cf2 radiology studies were completed. Property :Personal belongings accompany Pt. 00:25 Discharge Assessment: Patient awake, alert and oriented x 3. No cognitive and/or cf2 functional deficits noted. Patient verbalized understanding of disposition instructions. Patient awake and alert. Oriented to person, place and time. patient administered narcotics - no. The following High Risk Discharge criteria are identified: None. Discharged to home ambulatory, with family. 00:25 Patient left the ED. cf2 Signatures: Dispatcher [employer] EDMS Lakshmi Bella RN RN jan Zecher, Calvin, RN RN cz Barnhardt, Gloria, George Reg Abel Salazar, LAUNCH STEWARD LAUNCH STEWARD Danny Alberto Daniell, DESTINATION SPECIALIST DESTINATION SPECIALIST dd6 Franca Cool, DESTINATION SPECIALIST DESTINATION SPECIALIST Marisel Galvez RN RN ms18 Andreil, Adela BrushRN RN cf2 Lavell Choudhury, DESTINATION SPECIALIST DESTINATION SPECIALIST jmv Chart Complete MTDD
== END 2016-08-04 00:25 | disposition home or self-care (01) ==
LOC: M ED 21:24
DX: K21.0 Gastro-esophageal reflux disease with esophagitis (principal); L40.9 Psoriasis, unspecified; E78.00 Pure hypercholesterolemia, unspecified; E03.9 Hypothyroidism, unspecified; M81.0 Age-related osteoporosis without current pathological fracture; J44.9 Chronic obstructive pulmonary disease, unspecified; Z86.12 Personal history of poliomyelitis; Z86.718 Personal history of other venous thrombosis and embolism; Z90.49 Acquired absence of other specified parts of digestive tract; Z90.89 Acquired absence of other organs; Z87.891 Personal history of nicotine dependence; Z79.01 Long term (current) use of a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; Z79.899 Other long term (current) drug therapy; Z88.2 Allergy status to sulfonamides; Z88.5 Allergy status to narcotic agent; Z88.1 Allergy status to other antibiotic agents; Z88.8 Allergy status to other drugs, medicaments and biological substances; Z91.041 Radiographic dye allergy status
CPT/HCPCS: 36415; 71010; 80048; 82550; 82553; 84484; 85025; 85610; 93005; 93041; 96374; 99284; J1885

== ENCOUNTER → 2016-08-14 | Outpatient (REF) | payer MEDICARE, OTHER ==
[2016-08-14 11:44] LABS: IONIZED CALCIUM 4.9 MG/DL (4.5-5.3)
[2016-08-14 12:35] LABS: FREE T4 0.86 NG/DL (0.76-1.46)
== END ==
LOC: M LABDRAW1 11:24
PROVIDERS: ATTEND Internal Medicine Endocrinology, Diabetes & Metabolism
DX: M81.0 Age-related osteoporosis without current pathological fracture (principal); E55.9 Vitamin D deficiency, unspecified; E06.2 Chronic thyroiditis with transient thyrotoxicosis

== ENCOUNTER → 2016-08-18 | Outpatient (REF) | payer MEDICARE, OTHER | LOC: M LAB REF 08:53 | PROVIDERS: ATTEND Internal Medicine Gastroenterology | DX: R19.7 Diarrhea, unspecified (principal) ==

== ENCOUNTER → 2016-08-24 | Outpatient (CLI) | payer MEDICARE, OTHER ==
[2016-08-24 10:47] LABS: VITAMIN B12 LEVEL 516 PG/ML (247-911)
== END ==
LOC: M LAB 08:53
PROVIDERS: ATTEND Internal Medicine Gastroenterology
DX: K21.9 Gastro-esophageal reflux disease without esophagitis (principal); R14.3 Flatulence; R10.12 Left upper quadrant pain; K66.0 Peritoneal adhesions (postprocedural) (postinfection); E03.9 Hypothyroidism, unspecified; M81.0 Age-related osteoporosis without current pathological fracture

== ENCOUNTER → 2016-09-07 | Outpatient (REF) | payer MEDICARE, OTHER ==
[2016-09-07 12:26] LABS: MEAN CORPUSCULAR HEMOGLOBIN 29.2 pg (27.0-33.0); MEAN CORPUSCULAR HGB CONC 32.3 g/dl (32.0-36.5); MEAN CORPUSCULAR VOLUME 90.4 fl (80.0-96.0); RED CELL DISTRIBUTION WIDTH 13.4 % (11.5-14.5); WHITE BLOOD COUNT 12.5 K/mm3 (4.0-10.0)
[2016-09-07 12:47] LABS: ALBUMIN 2.9 GM/DL (3.2-5.2); ALBUMIN/GLOBULIN RATIO 0.63 (1.00-1.93); ALKALINE PHOSPHATASE 68 U/L (45-117); ALT/SGPT 17 U/L (12-78); ANION GAP 8 MEQ/L (8-16); AST/SGOT 13 U/L (15-37); BILIRUBIN,TOTAL 0.7 MG/DL (0.2-1.0); BLOOD UREA NITROGEN 15 MG/DL (7-18); CALCIUM LEVEL 8.7 MG/DL (8.8-10.2); CARBON DIOXIDE LEVEL 28 MEQ/L (21-32); CHLORIDE LEVEL 99 MEQ/L (98-107); CREATININE FOR GFR 0.75 MG/DL (0.55-1.02); GLOMERULAR FILTRATION RATE > 60.0 (>39); GLUCOSE, FASTING 92 MG/DL (83-110); POTASSIUM SERUM 3.7 MEQ/L (3.5-5.1); SODIUM LEVEL 135 MEQ/L (136-145); TOTAL PROTEIN 7.5 GM/DL (6.4-8.2)
== END ==
LOC: M LABDRAW1 12:11
PROVIDERS: ATTEND Internal Medicine Cardiovascular Disease
DX: I10 Essential (primary) hypertension (principal); R07.9 Chest pain, unspecified

== ENCOUNTER 2016-09-29 16:37 | Emergency (ER) | payer MEDICARE, OTHER ==
[~2016-09-29] VITALS: Ht 162.6 cm; Wt 60.8 kg
[2016-09-29] MEDS ORDERED: COUM2.5T11 PO (17:01)
[2016-09-29] MEDS ORDERED: NS 1,000 ML IV ONE (18:30)
[2016-09-29 19:54] LABS: BASO % 0.7 % (0.0-1.0); EOS # 0.3 K/mm3 (0.0-0.50); EOS % 3.8 % (0.0-3.0); LARGE UNSTAINED CELL # 0.1 K/mm3 (0.0-0.4); LARGE UNSTAINED CELL % 1.6 % (0.0-4.0); LYMPH # 1.4 K/mm3 (1.5-4.5); LYMPH % 18.3 % (24.0-44.0); MEAN CORPUSCULAR HEMOGLOBIN 29.6 pg (27.0-33.0); MEAN CORPUSCULAR VOLUME 89.9 fl (80.0-96.0); MONO # 0.5 K/mm3 (0.0-0.8); MONO % 6.6 % (0.0-5.0); NEUTROPHILS # 4.9 K/mm3 (1.8-7.7); PLATELET COUNT, AUTOMATED 300 k/mm3 (150-450)
--- NOTE | 2016-09-29 20:00 | REPUSA ---
CT of the abdomen and pelvis without contrast Clinical statement: Pain. Technique: Multiple axial CT images were obtained from the base of the lungs to the floor of the pelv is utilizing 5 mm axial slices without administration of contrast. Coronal and sagittal reconstructio ns were also obtained. No comparison is available. Findings: Chest: The visualized lung bases are clear. Abdomen: The kidneys are normal in size bilaterally. Multiple bilateral simple parapelvic cysts are a ppreciated. There is no evidence of hydronephrosis or nephrolithiasis. The liver, spleen, pancreas, g allbladder and adrenal glands are unremarkable. The aorta demonstrates normal caliber and contour. Th ere is no abdominal lymphadenopathy or ascites. Gastroesophageal device is intact. Pelvis: The bowel is unremarkable, with no obstructive or inflammatory changes. Bowel anastomosis in the region of the right colon is appreciated, with surrounding postsurgical changes. The urinary dashawn dder is within normal limits. There is no pelvic lymphadenopathy or ascites. The other pelvic structu res appear unremarkable. There is a focal area of soft tissue thickening along the midline of the ant erior abdominal wall within the rectus sheath, measuring 2.9 x 7.9 cm. This could represent postsurgi homero hematoma. Bones: There are no suspicious osseous abnormalities seen. Impression: 1. Postsurgical changes from recent partial colectomy is noted in the right lower quadrant. The anast omosis appears intact. There is no evidence of bowel obstruction. 2. Soft tissue thickening within the anterior abdominal wall within the rectus sheath, likely represe nting a postsurgical hematoma. 3. No discrete loculated fluid collections identified. 4. Bilateral simple renal parapelvic cysts.
[2016-09-29 20:02] LABS: INR 2.14
[2016-09-29 20:22] LABS: ALBUMIN 3.5 GM/DL (3.2-5.2); ALKALINE PHOSPHATASE 87 U/L (45-117); ALT/SGPT 14 U/L (12-78); ANION GAP 7 MEQ/L (8-16); AST/SGOT 16 U/L (15-37); BILIRUBIN,DIRECT 0.2 MG/DL (0.0-0.2); BILIRUBIN,TOTAL 0.7 MG/DL (0.2-1.0); BLOOD UREA NITROGEN 15 MG/DL (7-18); CALCIUM LEVEL 9.3 MG/DL (8.8-10.2); CARBON DIOXIDE LEVEL 29 MEQ/L (21-32); CHLORIDE LEVEL 103 MEQ/L (98-107); CREATININE FOR GFR 0.78 MG/DL (0.55-1.02); GLOMERULAR FILTRATION RATE > 60.0 (>39); GLUCOSE, FASTING 104 MG/DL (83-110); POTASSIUM SERUM 3.8 MEQ/L (3.5-5.1); SODIUM LEVEL 139 MEQ/L (136-145); TOTAL PROTEIN 7.9 GM/DL (6.4-8.2)
--- NOTE | 2016-09-29 21:02 | REP ---
ABDOMEN, FLAT AND UPRIGHT, PA CHEST, THREE VIEWS: HISTORY: Abdominal pain. COMPARISON: 08/03/2016. Air is present in small and large intestine. Several air fluid levels are present. There are no dilated loops of intestine. There is no pneumoperitoneum. Postoperative changes present in the left upper quadrant and the right lateral abdomen. The lungs are clear. IMPRESSION: Nonspecific bowel gas pattern. Signed by Ha Castaneda MD 09/30/2016 08:03 A
[2016-09-29] MEDS ORDERED: CEPHALEXIN 500 MG CAP PO ONE (21:15)
[2016-09-29] MEDS ORDERED: KEFL500C7 PO (21:19)
[2016-09-29] MEDS ORDERED: ZOFR4TAB3 PO (21:20)
[2016-09-29 22:25] VITALS: BP 112/56
== END 2016-09-29 22:27 | disposition home or self-care (01) ==
LOC: M ED 16:37
DX: N30.00 Acute cystitis without hematuria (principal); E86.0 Dehydration; G43.909 Migraine, unspecified, not intractable, without status migrainosus; Z86.711 Personal history of pulmonary embolism; K57.30 Diverticulosis of large intestine without perforation or abscess without bleeding; E05.90 Thyrotoxicosis, unspecified without thyrotoxic crisis or storm; Z88.1 Allergy status to other antibiotic agents; Z88.5 Allergy status to narcotic agent; Z88.8 Allergy status to other drugs, medicaments and biological substances; Z88.2 Allergy status to sulfonamides; Z79.01 Long term (current) use of a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; Z79.82 Long term (current) use of aspirin; Z79.899 Other long term (current) drug therapy

== ENCOUNTER → 2016-10-02 | Outpatient (REF) | payer MEDICARE, OTHER ==
[~2016-10-02] MED LIST changes: +COUM2.5T11 PO; +KEFL500C7 PO; +ZOFR4TAB3 PO
[2016-10-02 16:09] LABS: CALCIUM LEVEL 9.2 MG/DL (8.8-10.2); FREE T4 1.07 NG/DL (0.76-1.46)
== END ==
LOC: M LABDRAW1 14:13
PROVIDERS: ATTEND Physician Assistant Medical
DX: E05.90 Thyrotoxicosis, unspecified without thyrotoxic crisis or storm (principal); M81.0 Age-related osteoporosis without current pathological fracture; E55.9 Vitamin D deficiency, unspecified

== ENCOUNTER → 2016-10-14 | Outpatient (CLI) | payer MEDICARE, OTHER ==
--- NOTE | 2016-10-14 18:59 | REP ---
ABDOMEN, TWO VIEWS: 10/14/2016. COMPARISON: Acute abdominal series 09/29/2016, CT abdomen 09/29/2016. CLINICAL HISTORY: Abdominal pain. FINDINGS: There are anastomotic sutures overlying the right midabdomen above the iliac crest as on previous study. This is related to ileocolic anastomosis and partial colectomy. Gas in the transverse colon and a small bowel loop in the left upper quadrant noted without abnormal dilatation stool and gas scattered in the residual colon to the rectosigmoid and small bowel. No dilated loops, air-fluid levels, masses or free air. In the left upper quadrant, there is an [place] anti-reflux device. The bones show no acute finding. There is minor degenerative changes lower lumbar spine. No abnormal soft-tissue calcification. IMPRESSION: 1. Nonspecific gas pattern without obstruction, mass or free air. Anastomotic suture line in the right upper quadrant unchanged. Signed by Feng Mora MD 10/14/2016 07:16 P
--- NOTE | 2016-10-14 19:01 | REP ---
CHEST X-RAY PA AND LATERAL: 10/14/2016. CLINICAL HISTORY: Abdominal pain. COMPARISON: PA chest 09/29/2016, portable chest 08/03/2016, chest x-ray 04/11/2016. FINDINGS: The lung oh are well inflated. CP angles are sharply defined. There is no pleural effusion, acute infiltrate or atelectasis. The heart, mediastinal and hilar contours are normal. Airway is intact. There are a few small calcifications in the aortic arch without aneurysm. Bony thorax shows no compression deformity. Left upper quadrant shows an antireflux device at near the GE junction. This is unchanged. IMPRESSION: 1. No acute cardiopulmonary disease with some postoperative changes near the GE junction. Stable exam. Signed by Feng Moar MD 10/14/2016 07:17 P
== END ==
LOC: M RAD 17:15
PROVIDERS: ATTEND Physician Assistant Surgical
DX: R10.9 Unspecified abdominal pain (principal)

== ENCOUNTER 2016-10-18 10:12 | Emergency (ER) | payer MEDICARE, OTHER ==
[~2016-10-18] VITALS: Ht 165.1 cm; Wt 60.8 kg
[2016-10-18] MEDS ORDERED: TRAM1CAP15 PO (10:27)
[2016-10-18 11:39] LABS: BASO % 0.8 % (0.0-1.0); EOS # 0.1 K/mm3 (0.0-0.50); EOS % 2.7 % (0.0-3.0); LARGE UNSTAINED CELL # 0.1 K/mm3 (0.0-0.4); LARGE UNSTAINED CELL % 1.6 % (0.0-4.0); LYMPH # 0.8 K/mm3 (1.5-4.5); LYMPH % 17.2 % (24.0-44.0); MEAN CORPUSCULAR HEMOGLOBIN 29.4 pg (27.0-33.0); MEAN CORPUSCULAR HGB CONC 32.5 g/dl (32.0-36.5); MEAN CORPUSCULAR VOLUME 90.5 fl (80.0-96.0); MONO # 0.2 K/mm3 (0.0-0.8); MONO % 4.6 % (0.0-5.0); NEUTROPHILS # 3.4 K/mm3 (1.8-7.7); PLATELET COUNT, AUTOMATED 227 k/mm3 (150-450); RED CELL DISTRIBUTION WIDTH 13.5 % (11.5-14.5); WHITE BLOOD COUNT 4.6 K/mm3 (4.0-10.0)
[2016-10-18 11:45] LABS: INR 1.75
[2016-10-18] MEDS ORDERED: SODIUM CHLORIDE 0.9% 1000 ML IV ONE (12:00)
[2016-10-18] MEDS ORDERED: fentaNYL 100 MCG/2 ML INJECTION (J3010) IV ONE (12:00)
[2016-10-18] MEDS ORDERED: ONDANSETRON 4MG/2ML VIAL (J2405) IV ONE (12:00)
[2016-10-18 12:04] LABS: ALBUMIN 3.8 GM/DL (3.2-5.2); ALKALINE PHOSPHATASE 76 U/L (45-117); ALT/SGPT 18 U/L (12-78); ANION GAP 9 MEQ/L (8-16); AST/SGOT 18 U/L (15-37); BILIRUBIN,DIRECT 0.2 MG/DL (0.0-0.2); BILIRUBIN,TOTAL 0.9 MG/DL (0.2-1.0); BLOOD UREA NITROGEN 12 MG/DL (7-18); CALCIUM LEVEL 9.3 MG/DL (8.8-10.2); CARBON DIOXIDE LEVEL 27 MEQ/L (21-32); CHLORIDE LEVEL 106 MEQ/L (98-107); CREATININE FOR GFR 0.74 MG/DL (0.55-1.02); GLOMERULAR FILTRATION RATE > 60.0 (>39); GLUCOSE, FASTING 95 MG/DL (83-110); POTASSIUM SERUM 4.2 MEQ/L (3.5-5.1); SODIUM LEVEL 142 MEQ/L (136-145)
[2016-10-18] MEDS ORDERED: MAGNESIUM CITRATE 300 ML BTL PO ONE (13:00)
--- NOTE | 2016-10-18 18:30 | REPUSA ---
CLINICAL HISTORY: Abdominal pain. TECHNIQUE: Multiple axial CT images were obtained through the abdomen and pelvis without administrat ion of oral or IV contrast material. COMMENTS: Comparison is made with the prior study dated 09/29/2016. The liver is of uniform attenuation without mass or defect. There is no intra or extrahepatic biliar y ductal dilatation. The spleen is normal. The gallbladder is within normal limits. The pancreas i s of normal contour and attenuation characteristics. There is no evidence of adrenal mass. The kidneys are normal in size, shape and configuration. No renal or ureteral calculi are identified . There is no hydroureter or hydronephrosis. Bilateral extrarenal pelvis. Note again is made of bowel anastomosis in the right lower quadrant with residual postsurgical change s which have decreased since the prior study. Note again is made of a soft tissue density along the midline anterior abdominal wall mid in the rectus sheath which is decreased since the prior study. N ow measures approximately 6.2 x 2.2 cm, previously 7.9 x 2.8 cm. This can be compatible with resolvi ng hematoma. There is no bowel wall thickening. No evidence for small or large bowel obstruction. There is no evidence of abdominal ascites or lymphadenopathy. Gastroesophageal device is noted. There is no evidence of intrinsic or extrinsic bladder mass. There is no pelvic ascites or lymphaden opathy. Status post complete hysterectomy. Images of the lung bases show no evidence of pleural or parenchymal mass. There are no pleural effus ions. The bony structures are free of lytic or blastic lesions. Multilevel degenerative changes are seen i nvolving the thoracolumbar spine. Scattered calcifications are seen involving the aorta and major branches compatible with atherosclero sis. IMPRESSION: No evidence of acute abdominal or pelvic pathology. Postsurgical changes. Residual anterior abdominal wall hematoma. Thank you for your kind referral of this patient. We appreciate the opportunity to participate in thi s patient's care.
[2016-10-18 19:37] VITALS: BP 131/64
--- NOTE | 2016-10-18 20:34 | ECGEPIP ---
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
--- NOTE | 2016-10-19 06:55 | REP ---
Abdominal series: Three views. History: Abdominal pain. Findings: Upright chest radiograph is normal. There is no evidence of infiltrate or free subdiaphragmatic air. An Angelchik antireflux device is noted in the left upper quadrant of the abdomen. EKG monitoring electrodes are seen. Supine and erect views of the abdomen show surgical clips in the right lower abdomen. There are multiple colonic air fluid levels. No large or small bowel dilation is seen. No other abnormality. Impression: Multiple colonic air fluid levels may reflect enteritis. No obstruction is seen. No evidence of free air. Signed by Edil Ortez MD 10/19/2016 11:39 A
== END 2016-10-18 19:41 | disposition home or self-care (01) ==
LOC: M ED 10:43
DX: G89.18 Other acute postprocedural pain (principal)
CPT/HCPCS: 74022; 74176; 80048; 80076; 83690; 85025; 85610; 93005; 93041; 96374; 96375; 99285; J2405; J3010

== ENCOUNTER → 2016-10-29 | Outpatient (CLI) | payer MEDICARE, OTHER ==
[~2016-10-29] MED LIST changes: +E-Z PAQUE 60% w/v SUSP 355ML BOTTLE As Ordered ONE; +E-Z-GAS II EFFERVESCENT PACKET (SODIUM BICARB./CITRIC ACID/SIMETHICONE) As Ordered ONE; +E-Z-HD 98% w/w 340GM SUSP BTL As Ordered ONE; +TRAM1CAP15 PO
--- NOTE | 2016-10-29 16:06 | REP ---
UPPER GI SINGLE CONTRAST AND SMALL BOWEL FOLLOW THROUGH: The procedure was performed under the direct supervision of Dr. Mora. The images were reviewed with Dr. Mora. The program director scouting film shows no organomegaly or pathological masses. The intestinal gas pattern is nonspecific. There are bowel sutures noted in the right upper quadrant. There is an Angelchik antireflux device seen. Liquid barium was given in the erect and prone oblique position in order to perform a single contrast upper GI examination. Additionally, liquid barium was given at the end of the examination in order to perform a small bowel follow through. The oral and pharyngeal stages of deglutition are unremarkable. Esophageal transport is prompt and efficient and there is no esophagitis, stricture, mucosal ring, or hiatal hernia. Gastroesophageal reflux is not demonstrated on this examination. The contrast passes through the Angelchik antireflux device without evidence of stricture or obstruction. The stomach dan are normally outlined. The rugal folds are smooth and regular. There is no gastritis, neoplasm, or ulcer disease. The duodenal dan are normally outlined. The mucosal folds are smooth and regular. There is no duodenitis, pancreatitis, peptic ulcer disease or neoplasm. The visualized portion of the proximal small bowel appears normal in course and caliber. The barium column was full through the small bowel to the level of the ileocolic anastomosis. Small bowel transit time is approximately 60 minutes. During fluoroscopy gentle palpation shows all loops are freely movable and pliable. There are no fixed or angulated loops. The small bowel mucosal pattern is normal in course and caliber. There is no transition to suggest a partial small bowel obstruction. Spot filming of the distal small bowel and ileocolic anastomosis is unremarkable. There is no evidence of stricture or obstruction. IMPRESSION: Postsurgical changes as described above, otherwise unremarkable single contrast upper GI and small bowel follow through examination. 2 minutes and 32 seconds of fluoroscopic time was utilized for this procedure. Reviewed by FARHAN Douglas 10/29/2016 04:53 PEdited and Signed by Feng Mora MD 10/29/2016 05:46 P
== END ==
LOC: M RAD 09:57
PROVIDERS: ATTEND Surgery
DX: R10.9 Unspecified abdominal pain (principal)

== ENCOUNTER → 2016-11-17 | Outpatient (REF) | payer MEDICARE, OTHER ==
[~2016-11-17] MED LIST changes: -E-Z PAQUE 60% w/v SUSP 355ML BOTTLE As Ordered ONE; -E-Z-GAS II EFFERVESCENT PACKET (SODIUM BICARB./CITRIC ACID/SIMETHICONE) As Ordered ONE; -E-Z-HD 98% w/w 340GM SUSP BTL As Ordered ONE
== END ==
LOC: M LAB REF 16:23
PROVIDERS: ATTEND Nurse Practitioner Women's Health
DX: R39.89 Other symptoms and signs involving the genitourinary system (principal); Z87.440 Personal history of urinary (tract) infections

== ENCOUNTER → 2016-12-04 | Outpatient (REF) | payer MEDICARE, OTHER | LOC: M LAB REF 16:17 | PROVIDERS: ATTEND Obstetrics & Gynecology | DX: N39.0 Urinary tract infection, site not specified (principal) ==

== ENCOUNTER 2016-12-08 06:07 | Emergency (ER) | payer MEDICARE, OTHER ==
[~2016-12-08] VITALS: Ht 162.6 cm; Wt 54.4 kg
[2016-12-08] MEDS ORDERED: KETOROLAC 60 MG/2 ML VIAL (J1885) IM ONE (07:15)
[2016-12-08] MEDS ORDERED: traMADol 50 MG TAB PO ONE (07:15)
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
[2016-12-08] MEDS ORDERED: ACETAMINOPHEN 325 MG TAB PO ONE (10:15)
[2016-12-08 10:19] VITALS: BP_DIAS 61
--- NOTE | 2016-12-08 10:47 | REP ---
CT LEFT HIP: Axial CT imaging left hip performed with sagittal and coronal reconstruction images. There is no fracture, dislocation or intrinsic bone disease. No bone lesions are seen. Surrounding soft tissue structures are unremarkable. Visualized intrapelvic structures are essentially unremarkable. IMPRESSION: No evidence of acute fracture or dislocation. Signed by Jonathan Duque MD 12/08/2016 04:07 P
[2016-12-08 11:11] VITALS: BP_SYST 129
== END 2016-12-08 11:23 | disposition home or self-care (01) ==
LOC: M ED 07:39
DX: S70.02XA Contusion of left hip, initial encounter (principal); W18.09XA Striking against other object with subsequent fall, initial encounter; Y92.019 Unspecified place in single-family (private) house as the place of occurrence of the external cause; Y93.89 Activity, other specified; Y99.8 Other external cause status; M85.852 Other specified disorders of bone density and structure, left thigh; I10 Essential (primary) hypertension; E78.00 Pure hypercholesterolemia, unspecified; G43.909 Migraine, unspecified, not intractable, without status migrainosus; Z90.49 Acquired absence of other specified parts of digestive tract; Z86.718 Personal history of other venous thrombosis and embolism; Z88.2 Allergy status to sulfonamides; Z88.5 Allergy status to narcotic agent; Z79.01 Long term (current) use of a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; Z79.82 Long term (current) use of aspirin; Z79.899 Other long term (current) drug therapy
CPT/HCPCS: 70450; 73502; 73552; 73700; 96372; 99283; J1885

== ENCOUNTER 2016-12-28 15:03 | Emergency (ER) | payer MEDICARE, OTHER ==
[~2016-12-28] VITALS: Ht 162.6 cm; Wt 54.4 kg
[2016-12-28 15:03] VITALS: BP 156/64
[2016-12-28] MEDS ORDERED: COLA100C3 PO (15:34)
[2016-12-28] MEDS ORDERED: PROBCAP18 PO (15:34)
[2016-12-28] MEDS ORDERED: fentaNYL 100 MCG/2 ML INJECTION (J3010) IV ONE (16:00)
[2016-12-28] MEDS ORDERED: NS 500 ML IV ONE (16:00)
[2016-12-28] MEDS ORDERED: ONDANSETRON 4MG/2ML VIAL (J2405) IV ONE (16:00)
[2016-12-28 16:22] LABS: BASO % 0.9 % (0.0-1.0); EOS # 0.1 K/mm3 (0.0-0.50); EOS % 2.2 % (0.0-3.0); LARGE UNSTAINED CELL # 0.1 K/mm3 (0.0-0.4); LARGE UNSTAINED CELL % 1.6 % (0.0-4.0); LYMPH # 1.2 K/mm3 (1.5-4.5); LYMPH % 19.4 % (24.0-44.0); MEAN CORPUSCULAR HEMOGLOBIN 30.6 pg (27.0-33.0); MEAN CORPUSCULAR HGB CONC 33.3 g/dl (32.0-36.5); MEAN CORPUSCULAR VOLUME 91.9 fl (80.0-96.0); MONO # 0.3 K/mm3 (0.0-0.8); MONO % 5.5 % (0.0-5.0); NEUTROPHILS # 4.1 K/mm3 (1.8-7.7); NEUTROPHILS % 70.5 % (36.0-66.0); PLATELET COUNT, AUTOMATED 222 k/mm3 (150-450); RED CELL DISTRIBUTION WIDTH 14.1 % (11.5-14.5); WHITE BLOOD COUNT 5.8 K/mm3 (4.0-10.0)
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
--- NOTE | 2016-12-28 16:40 | REP ---
Clinical: Trauma with right-sided pain. Findings: The bilateral lung oh are well-aerated and clear. No consolidation/contusion, pleural effusion or pneumothorax appreciated. No significant pulmonary nodule or mass lesion identified. The tracheobronchial tree is patent. The mediastinum is grossly unremarkable and without evidence for hematoma or trauma/injury. The mild atherosclerotic changes to the thoracic aorta and coronary arteries noted without cardiomegaly or aortic aneurysm. No pericardial effusion. Osseous structures appear intact without fracture or injury. Impression: No acute mediastinal or pleuroparenchymal process. No evidence for thoracic injury. Signed by Tae Qiu MD 12/28/2016 04:32 P
--- NOTE | 2016-12-28 16:42 | REP ---
Clinical: Dyspnea. Cough . Comparison: 10/18/2016 . Findings: The mediastinum and cardiac silhouette are stable and within normal limits for portable technique. The lung oh are clear without acute consolidation, effusion, or pneumothorax. Skeletal structures are intact. Impression: Normal portable chest x-ray Signed by Tae Qiu MD 12/28/2016 04:33 P
[2016-12-28] MEDS ORDERED: HYDROmorphone HCL 1 MG/ML SYRINGE (J1170) As Ordered ONE (16:51)
[2016-12-28] MEDS ORDERED: HYDROmorphone HCL 1 MG/ML SYRINGE (J1170) IV ONE (17:00)
[2016-12-28 17:06] LABS: ANION GAP 6 MEQ/L (8-16); BLOOD UREA NITROGEN 15 MG/DL (7-18); CALCIUM LEVEL 8.5 MG/DL (8.8-10.2); CARBON DIOXIDE LEVEL 29 MEQ/L (21-32); CHLORIDE LEVEL 109 MEQ/L (98-107); CREATININE FOR GFR 0.76 MG/DL (0.55-1.02); GLOMERULAR FILTRATION RATE > 60.0 (>39); GLUCOSE, FASTING 97 MG/DL (83-110); POTASSIUM SERUM 4.3 MEQ/L (3.5-5.1); SODIUM LEVEL 144 MEQ/L (136-145)
--- NOTE | 2016-12-29 07:23 | ECGEPIP ---
Stationary ECG Study [facility] - ED Test Date: 2016-12-28 Pat Name: ERIK BOLDEN Department: Room: - Gender: F Spd Tech: dario : 1945 Requested By: Axel Leigh Order Number: [id number] Reading MD: Axel Genao Measurements Intervals [place] Rate: 82 P: 74 WA: 147 QRS: 64 QRSD: 79 T: 55 QT: 377 QTc: 442 Interpretive Statements SINUS RHYTHM NSTTW ABNORMALITIES SIMILAR TO 10/18/16 Electronically Signed On 12-29-2016 7:23:17 EDT by Axel Genao
== END 2016-12-28 17:37 | disposition home or self-care (01) ==
LOC: M ED 16:21
DX: R07.9 Chest pain, unspecified (principal); W19.XXXA Unspecified fall, initial encounter; Y92.89 Other specified places as the place of occurrence of the external cause; Y93.89 Activity, other specified; Y99.8 Other external cause status; I10 Essential (primary) hypertension; R00.2 Palpitations; R53.1 Weakness; R20.9 Unspecified disturbances of skin sensation; Z86.711 Personal history of pulmonary embolism; Z87.891 Personal history of nicotine dependence; Z79.899 Other long term (current) drug therapy; Z79.82 Long term (current) use of aspirin; Z79.01 Long term (current) use of a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; Z88.8 Allergy status to other drugs, medicaments and biological substances; Z88.2 Allergy status to sulfonamides; Z88.5 Allergy status to narcotic agent; Z91.041 Radiographic dye allergy status
CPT/HCPCS: 70486; 71010; 71250; 80048; 82550; 82553; 83880; 84484; 85025; 93005; 96374; 96375; 99283; J1170; J2405; J3010

== ENCOUNTER → 2017-01-06 | Outpatient (CLI) | payer MEDICARE, OTHER ==
[~2017-01-06] MED LIST changes: +COLA100C5 PO; -COUM2.5T11 PO; +COUM2.5T17 PO; +KEFL500C17 PO; -KEFL500C7 PO; +PROBCAP18 PO
--- NOTE | 2017-01-07 08:36 | REP ---
Left rib series: Five views including PA chest x-ray: History: Left rib cage pain. Comparison radiographs are from December 31, 2016 done at [facility]. Findings: PA chest radiograph shows no evidence of pneumothorax or hydrothorax. The lung oh are clear and well inflated. Cardiomediastinal silhouette remains unremarkable. An Angelchik antireflux device is seen to the gastroesophageal junction as before. Multiple views of the left rib cage demonstrate some diffuse osteopenia. There is subtle cortical discontinuity and irregularity of the left lateral 7th rib. This appears to be a recent nondisplaced fracture. No 9th rib fracture is visible radiographically on today's images. No other rib fracture is seen. Impression: Left lateral 7th rib fracture nondisplaced. Otherwise no active disease. Signed by Edil Ortez MD 01/07/2017 10:17 A
== END ==
LOC: M LRY 20:06
PROVIDERS: ATTEND Nurse Practitioner Family
DX: S22.32XA Fracture of one rib, left side, initial encounter for closed fracture (principal); W01.198A Fall on same level from slipping, tripping and stumbling with subsequent striking against other object, initial encounter; Y92.89 Other specified places as the place of occurrence of the external cause; Y93.89 Activity, other specified; Y99.8 Other external cause status
CPT/HCPCS: 71101; G0463

== ENCOUNTER → 2017-01-11 | Outpatient (REF) | payer MEDICARE, OTHER ==
[~2017-01-11] MED LIST changes: +COLA100C3 PO; -COLA100C5 PO; +COUM2.5T11 PO; -COUM2.5T17 PO; -KEFL500C17 PO; +KEFL500C7 PO
== END ==
LOC: M LAB REF 10:37
PROVIDERS: ATTEND Physician Assistant Medical
DX: N39.0 Urinary tract infection, site not specified (principal)

== ENCOUNTER → 2017-01-13 | Outpatient (REF) | payer MEDICARE, OTHER | LOC: M LAB REF 13:32 | PROVIDERS: ATTEND Nurse Practitioner Women's Health | DX: N39.0 Urinary tract infection, site not specified (principal) ==

== ENCOUNTER → 2017-02-09 | Outpatient (CLI) | payer MEDICARE, OTHER ==
[~2017-02-09] MED LIST changes: -COLA100C3 PO; +COLA100C5 PO; -COUM2.5T11 PO; +COUM2.5T17 PO; +KEFL500C17 PO; -KEFL500C7 PO
--- NOTE | 2017-02-09 12:02 | REP ---
RIGHT HAND, FOUR VIEWS: HISTORY: Finger injury. There is no acute fracture or dislocation. There is narrowing of the intermediate and distal interphalangeal joint spaces and first carpometacarpal joint space. IMPRESSION: There is no acute fracture or dislocation. Signed by Ha Castaneda MD 02/09/2017 12:10 P
== END ==
LOC: M LRY 11:07
PROVIDERS: ATTEND Nurse Practitioner Family
DX: S69.91XA Unspecified injury of right wrist, hand and finger(s), initial encounter (principal); W22.09XA Striking against other stationary object, initial encounter; Y92.9 Unspecified place or not applicable; Y93.9 Activity, unspecified; Y99.8 Other external cause status
CPT/HCPCS: 73130; G0463

== ENCOUNTER 2017-03-02 18:08 | Emergency (ER) | payer MEDICARE, OTHER ==
[~2017-03-02] VITALS: Ht 162.6 cm; Wt 61.9 kg
[2017-03-02 18:10] VITALS: BP 152/73
[2017-03-02 20:25] LABS: BASO # 0.1 K/mm3 (0.0-0.2); BASO % 0.9 % (0.0-1.0); EOS # 0.2 K/mm3 (0.0-0.50); EOS % 2.6 % (0.0-3.0); LARGE UNSTAINED CELL # 0.1 K/mm3 (0.0-0.4); LARGE UNSTAINED CELL % 1.2 % (0.0-4.0); LYMPH # 1.8 K/mm3 (1.5-4.5); LYMPH % 24.4 % (24.0-44.0); MEAN CORPUSCULAR HEMOGLOBIN 30.4 pg (27.0-33.0); MEAN CORPUSCULAR HGB CONC 33.1 g/dl (32.0-36.5); MEAN CORPUSCULAR VOLUME 91.9 fl (80.0-96.0); MONO # 0.4 K/mm3 (0.0-0.8); MONO % 5.7 % (0.0-5.0); NEUTROPHILS # 4.5 K/mm3 (1.8-7.7); NEUTROPHILS % 65.3 % (36.0-66.0); PLATELET COUNT, AUTOMATED 210 k/mm3 (150-450); RED CELL DISTRIBUTION WIDTH 12.9 % (11.5-14.5); WHITE BLOOD COUNT 6.8 K/mm3 (4.0-10.0)
[2017-03-02 20:31] LABS: INR 2.06
[2017-03-02 20:41] LABS: ANION GAP 7 MEQ/L (8-16); BLOOD UREA NITROGEN 17 MG/DL (7-18); CARBON DIOXIDE LEVEL 28 MEQ/L (21-32); CHLORIDE LEVEL 105 MEQ/L (98-107); CREATININE FOR GFR 0.86 MG/DL (0.55-1.02); GLOMERULAR FILTRATION RATE > 60.0 (>39); GLUCOSE, FASTING 96 MG/DL (83-110); POTASSIUM SERUM 3.9 MEQ/L (3.5-5.1); SODIUM LEVEL 140 MEQ/L (136-145)
--- NOTE | 2017-03-02 21:00 | REPUSA ---
CLINICAL HISTORY: Asthenia. TECHNIQUE: Multiple axial CT images were obtained through the brain without IV contrast material. COMMENTS: There is normal configuration of sella turcica. There are no intra or extra-axial collections. There is no mass effect or midline shift. There is no evidence of hematoma formation. No hydrocephalus is p resent. The ventricles are symmetrical. No abnormal calcifications are present. There is diffuse age-appropriate cerebellar and cerebral atrophy with proportionally dilated ventricl es and cortical sulci. There are bilateral periventricular and subcortical white matter hypolucencies compatible with mild c hronic microvascular disease. Otherwise, no significant focal abnormalities are seen either in the posterior fossa or supratentoria l compartment. IMPRESSION: 1. Age-appropriate cerebellar and cerebral atrophy. 2. Mild chronic microvascular disease. 3. No evidence of acute intracranial pathology. Thank you for your kind referral of this patient.
--- NOTE | 2017-03-03 08:24 | REP ---
PA and lateral chest: Comparison is 2016. The lung oh are clear. The cardiac size is normal The elida, mediastinum, and bony thorax are unremarkable. There is an Angelchik anti reflux ring beneath the left hemidiaphragm, unchanged. Impression: Negative PA and lateral chest. There is no interval change. Signed by Jonathan Cuba MD 03/03/2017 08:15 A
--- NOTE | 2017-03-03 14:03 | ECGEPIP ---
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
== END 2017-03-03 00:05 | disposition left against medical advice (07) ==
LOC: M ED 18:08
DX: M62.81 Muscle weakness (generalized) (principal); I10 Essential (primary) hypertension; G43.909 Migraine, unspecified, not intractable, without status migrainosus; K21.9 Gastro-esophageal reflux disease without esophagitis; E78.5 Hyperlipidemia, unspecified; D68.51 Activated protein C resistance; Z86.718 Personal history of other venous thrombosis and embolism; Z90.49 Acquired absence of other specified parts of digestive tract; Z79.01 Long term (current) use of a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; Z79.82 Long term (current) use of aspirin; Z79.899 Other long term (current) drug therapy; Z88.1 Allergy status to other antibiotic agents; Z88.2 Allergy status to sulfonamides; Z88.5 Allergy status to narcotic agent; Z88.8 Allergy status to other drugs, medicaments and biological substances; Z91.041 Radiographic dye allergy status

== ENCOUNTER → 2017-03-17 | Outpatient (CLI) | payer MEDICARE, OTHER ==
[2017-03-17 18:31] LABS: MEAN CORPUSCULAR HEMOGLOBIN 30.3 pg (27.0-33.0); MEAN CORPUSCULAR HGB CONC 33.1 g/dl (32.0-36.5); MEAN CORPUSCULAR VOLUME 91.7 fl (80.0-96.0); WHITE BLOOD COUNT 6.3 K/mm3 (4.0-10.0)
[2017-03-17 18:41] LABS: ANION GAP 11 MEQ/L (8-16); BLOOD UREA NITROGEN 20 MG/DL (7-18); CALCIUM LEVEL 9.4 MG/DL (8.8-10.2); CARBON DIOXIDE LEVEL 27 MEQ/L (21-32); CHLORIDE LEVEL 105 MEQ/L (98-107); CREATININE FOR GFR 0.93 MG/DL (0.55-1.02); GLOMERULAR FILTRATION RATE > 60.0 (>39); GLUCOSE, FASTING 98 MG/DL (83-110); POTASSIUM SERUM 4.1 MEQ/L (3.5-5.1); SODIUM LEVEL 143 MEQ/L (136-145)
== END ==
LOC: M SMT 14:26
PROVIDERS: ATTEND Internal Medicine Cardiovascular Disease
DX: I10 Essential (primary) hypertension (principal); R00.2 Palpitations; R07.9 Chest pain, unspecified

== ENCOUNTER → 2017-04-12 | Outpatient (REF) | payer MEDICARE, OTHER ==
[2017-04-12 12:32] LABS: CALCIUM LEVEL 9.8 MG/DL (8.8-10.2); FREE T4 0.96 NG/DL (0.76-1.46)
== END ==
LOC: M LABDRAW1 10:21
PROVIDERS: ATTEND Internal Medicine Endocrinology, Diabetes & Metabolism
DX: E05.90 Thyrotoxicosis, unspecified without thyrotoxic crisis or storm (principal); M81.0 Age-related osteoporosis without current pathological fracture

== ENCOUNTER → 2017-04-19 | Outpatient (REF) | payer MEDICARE, OTHER | LOC: M LAB REF 16:28 | PROVIDERS: ATTEND Nurse Practitioner Women's Health | DX: N39.0 Urinary tract infection, site not specified (principal) ==

== ENCOUNTER 2017-06-24 00:17 | Emergency (ER) | payer MEDICARE, OTHER ==
[2017-06-24] MEDS ORDERED: MIRA33504 PO (00:34)
[2017-06-24] MEDS ORDERED: PREV1CAP PO (00:37)
[2017-06-24 02:35] LABS: BASO % 0.2 % (0.0-1.0); EOS # 0.1 10^3/uL (0.0-0.50); EOS % 0.5 % (0.0-3.0); IMMATURE GRANULOCYTE % 0.4 % (0-0); LYMPH # 0.4 10^3/uL (1.5-4.5); LYMPH % 2.8 % (24.0-44.0); MEAN CORPUSCULAR HEMOGLOBIN 29.9 pg (27.0-33.0); MEAN CORPUSCULAR VOLUME 90.6 fl (80.0-96.0); MONO # 0.7 10^3/uL (0.0-0.8); MONO % 4.5 % (0.0-5.0); NEUTROPHILS # 13.1 10^3/uL (1.8-7.7); NEUTROPHILS % 91.6 % (36.0-66.0); PLATELET COUNT, AUTOMATED 240 10^3/uL (150-450); RED CELL DISTRIBUTION WIDTH 13.5 % (11.5-14.5); WHITE BLOOD COUNT 14.3 10^3/uL (4.0-10.0)
[2017-06-24 02:56] LABS: ABG BASE EXCESS 0.3 (-2.0-2.0); ABG HCO3 23.9 MEQ/L (22.0-26.0); ABG PARTIAL PRESSURE CO2 35.3 mmHg (35.0-45.0); ABG PARTIAL PRESSURE O2 103.4 mmHg (75.0-100.0); ABG STANDARD HCO3 24.8 MEQ/L (22.0-26.0); ABG pH (ARTERIAL) 7.448 UNITS (7.350-7.450)
[2017-06-24 03:03] LABS: ALBUMIN 3.6 GM/DL (3.2-5.2); ALBUMIN/GLOBULIN RATIO 1.03 (1.00-1.93); ALKALINE PHOSPHATASE 61 U/L (45-117); ALT/SGPT 26 U/L (12-78); AMYLASE 52 U/L (25-115); ANION GAP 7 MEQ/L (8-16); AST/SGOT 22 U/L (7-37); BILIRUBIN,DIRECT 0.2 MG/DL (0.0-0.2); BILIRUBIN,TOTAL 0.7 MG/DL (0.2-1.0); BLOOD UREA NITROGEN 18 MG/DL (7-18); CALCIUM LEVEL 8.6 MG/DL (8.8-10.2); CARBON DIOXIDE LEVEL 27 MEQ/L (21-32); CHLORIDE LEVEL 106 MEQ/L (98-107); CREATININE FOR GFR 0.86 MG/DL (0.55-1.02); GLOMERULAR FILTRATION RATE > 60.0 (>39); GLUCOSE, FASTING 107 MG/DL (83-110); SODIUM LEVEL 140 MEQ/L (136-145); TOTAL PROTEIN 7.1 GM/DL (6.4-8.2)
[2017-06-24] MEDS ORDERED: NS 500 ML IV ONE (04:15)
[2017-06-24 07:06] VITALS: BP 107/56
--- NOTE | 2017-06-24 08:31 | REP ---
Clinical: Chest and abdominal pain . Comparison: 03/02/2017 . Technique: PA and lateral. Findings: The mediastinum and cardiac silhouette are normal. The lung oh are clear and without acute consolidation, effusion, or pneumothorax. The skeletal structures are intact and normal. Impression: 1. No acute cardiopulmonary process. Signed by Tae Qiu MD 06/24/2017 08:22 A
--- NOTE | 2017-06-24 08:32 | REP ---
Clinical: Acute abdominal pain. Technique: Upright view of the chest with supine and upright views of the abdomen and pelvis. Findings: Frontal upright view of the chest demonstrates no acute cardiopulmonary process or free air below the diaphragm to suspect pneumoperitoneum. Supine and upright views of the abdomen and pelvis demonstrate nonspecific bowel gas pattern without obstruction or perforation. Anti reflux device in the left upper quadrant stable. No organomegaly. No abnormal calcifications. Skeletal structures normal for age. Impression: Nonspecific bowel gas pattern. Signed by Tae Qiu MD 06/24/2017 08:23 A
--- NOTE | 2017-06-25 06:05 | ECGEPIP ---
Stationary ECG Study [facility] - ED Test Date: 2017-06-24 Pat Name: ERIK BOLDEN Department: Room: - Gender: F Admissions Supervisor: kapil : 1945 Requested By: TONI ROBERTSON Order Number: [id number] Reading MD: Axel Genao Measurements Intervals [place] Rate: 98 P: 73 AZ: 198 QRS: 51 QRSD: 84 T: 58 QT: 352 QTc: 451 Interpretive Statements SINUS RHYTHM NSTTW ABNORMALITIES SIMILAR TO 03/02/17 Electronically Signed On 06-25-2017 6:05:39 EST by Axel Genao
== END 2017-06-24 07:07 | disposition home or self-care (01) ==
LOC: M ED 00:17
DX: R10.9 Unspecified abdominal pain (principal); G89.29 Other chronic pain; R19.7 Diarrhea, unspecified; Z79.899 Other long term (current) drug therapy; Z79.01 Long term (current) use of a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; Z79.82 Long term (current) use of aspirin; Z98.0 Intestinal bypass and anastomosis status; Z91.041 Radiographic dye allergy status; Z88.5 Allergy status to narcotic agent; Z88.8 Allergy status to other drugs, medicaments and biological substances; Z88.2 Allergy status to sulfonamides; Z88.1 Allergy status to other antibiotic agents

== ENCOUNTER → 2017-10-20 | Outpatient (REF) | payer MEDICARE, OTHER ==
[2017-10-20 12:26] LABS: FREE T4 0.88 NG/DL (0.76-1.46)
[2017-10-20 12:41] LABS: TOTAL 25(OH) VITAMIN D 35.6 NG/ML (30.0-100.0)
== END ==
LOC: M LABDRAW1 09:01
DX: M81.0 Age-related osteoporosis without current pathological fracture (principal); E55.9 Vitamin D deficiency, unspecified; E05.90 Thyrotoxicosis, unspecified without thyrotoxic crisis or storm
CPT/HCPCS: 82310

== ENCOUNTER → 2017-10-22 | Outpatient (REF) | payer MEDICARE, OTHER ==
[2017-10-22 18:01] LABS: APPEARANCE, URINE CLEAR (CLEAR); BACTERIA, URINE AUTO NEGATIVE (NEGATIVE); BILIRUBIN, URINE AUTO NEGATIVE (NEGATIVE); BLOOD, URINE BLOOD 1+ (NEGATIVE); COLOR, URINE YELLOW (YELLOW); GLUCOSE, URINE (UA) AUTO 1+ mg/dL (NEGATIVE); KETONE, URINE AUTO NEGATIVE (NEGATIVE); LEUKOCYTE ESTERASE, URINE AUTO 1+ (NEGATIVE); MUCUS, URINE SMALL (NEGATIVE); NITRITE, URINE AUTO NEGATIVE (NEGATIVE); PROTEIN, URINE AUTO NEGATIVE (NEGATIVE); RBC, URINE AUTO 1 /HPF (0-3); SPECIFIC GRAVITY URINE AUTO 1.012 (1.002-1.035); SQUAMOUS EPITHELIAL CELL UR AU 1 /HPF (0-6); UROBILINOGEN, URINE AUTO 0.2 mg/dL (0.0-2.0); WBC, URINE AUTO 4 /HPF (0-3)
== END ==
LOC: M LAB REF 16:54
DX: R39.89 Other symptoms and signs involving the genitourinary system (principal)
CPT/HCPCS: 81001

== ENCOUNTER → 2017-11-29 | Outpatient (REF) | payer MEDICARE, OTHER | LOC: M LABDRAW1 12:43 | DX: E55.9 Vitamin D deficiency, unspecified (principal) | CPT/HCPCS: 82310 ==

== ENCOUNTER → 2018-01-04 | Outpatient (REF) | payer MEDICARE, OTHER ==
[2018-01-04 12:55] LABS: APPEARANCE, URINE TURBID (CLEAR); BACTERIA, URINE AUTO 1+ (NEGATIVE); BILIRUBIN, URINE AUTO NEGATIVE (NEGATIVE); BLOOD, URINE BLOOD 1+ (NEGATIVE); COLOR, URINE AMBER (YELLOW); GLUCOSE, URINE (UA) AUTO NEGATIVE (NEGATIVE); KETONE, URINE AUTO NEGATIVE (NEGATIVE); LEUKOCYTE ESTERASE, URINE AUTO TRACE (NEGATIVE); MUCUS, URINE SMALL (NEGATIVE); NITRITE, URINE AUTO NEGATIVE (NEGATIVE); PROTEIN, URINE AUTO NEGATIVE (NEGATIVE); RBC, URINE AUTO 3 /HPF (0-3); SPECIFIC GRAVITY URINE AUTO 1.018 (1.002-1.035); SQUAMOUS EPITHELIAL CELL UR AU 2 /HPF (0-6); UROBILINOGEN, URINE AUTO 0.2 mg/dL (0.0-2.0); WBC, URINE AUTO 1 /HPF (0-3)
== END ==
LOC: M LAB REF 12:31
DX: Z87.440 Personal history of urinary (tract) infections (principal); R39.89 Other symptoms and signs involving the genitourinary system
CPT/HCPCS: 81001

== ENCOUNTER → 2018-05-26 | Outpatient (REF) | payer MEDICARE, OTHER ==
[2018-05-26 14:16] LABS: BASO # 0.1 10^3/uL (0.0-0.2); BASO % 0.8 % (0.0-1.0); EOS # 0.1 10^3/uL (0.0-0.50); EOS % 1.6 % (0.0-3.0); HEMATOCRIT 45.8 % (36.0-47.0); HEMOGLOBIN 14.8 g/dl (12.0-15.5); IMMATURE GRANULOCYTE % 0.5 % (0-3.0); LYMPH # 1.4 10^3/uL (1.5-4.5); LYMPH % 22.2 % (24.0-44.0); MEAN CORPUSCULAR HEMOGLOBIN 30.1 pg (27.0-33.0); MEAN CORPUSCULAR HGB CONC 32.3 g/dl (32.0-36.5); MEAN CORPUSCULAR VOLUME 93.1 fl (80.0-96.0); MONO # 0.4 10^3/uL (0.0-0.8); MONO % 6.8 % (0.0-5.0); NEUTROPHILS # 4.2 10^3/uL (1.8-7.7); NEUTROPHILS % 68.1 % (36.0-66.0); PLATELET COUNT, AUTOMATED 251 10^3/uL (150-450); RED BLOOD COUNT 4.92 10^6/uL (4.00-5.40); RED CELL DISTRIBUTION WIDTH 13.6 % (11.5-14.5); WHITE BLOOD COUNT 6.2 10^3/uL (4.0-10.0)
[2018-05-26 14:42] LABS: ALBUMIN 4.2 GM/DL (3.2-5.2); ALBUMIN/GLOBULIN RATIO 1.11 (1.00-1.93); ALKALINE PHOSPHATASE 68 U/L (45-117); ALT/SGPT 24 U/L (12-78); ANION GAP 9 MEQ/L (8-16); AST/SGOT 17 U/L (7-37); BILIRUBIN,TOTAL 0.9 MG/DL (0.2-1.0); BLOOD UREA NITROGEN 17 MG/DL (7-18); CALCIUM LEVEL 9.2 MG/DL (8.8-10.2); CARBON DIOXIDE LEVEL 28 MEQ/L (21-32); CHLORIDE LEVEL 102 MEQ/L (98-107); CREATININE FOR GFR 0.84 MG/DL (0.55-1.30); GLOMERULAR FILTRATION RATE > 60.0 (>39); GLUCOSE, FASTING 82 MG/DL (70-100); POTASSIUM SERUM 4.1 MEQ/L (3.5-5.1); SODIUM LEVEL 139 MEQ/L (136-145); TROPONIN I < 0.02 NG/ML (< 0.10)
[2018-05-26 14:49] LABS: ERYTHROCYTE SEDIMENTATION RATE 10 mm/hr (0-30)
[2018-05-26 23:50] LABS: CK-MB VALUE MASS < 1.0 NG/ML (<3.6)
[2018-05-26 23:53] LABS: CPK CREATINE PHOSPHOKINASE 66 U/L (26-192); MB/CK RELATIVE INDEX 1.52 (< OR =4)
== END ==
LOC: M LABDRAW1 12:40
DX: K59.00 Constipation, unspecified (principal); R07.9 Chest pain, unspecified
CPT/HCPCS: 80053

== ENCOUNTER → 2018-06-16 | Outpatient (REF) | payer MEDICARE, OTHER ==
[2018-06-16 17:57] LABS: INR 1.64; PROTHROMBIN TIME 19.7 SECONDS (12.1-14.4)
[2018-06-16 17:58] LABS: PARTIAL THROMBOPLASTIN TIME 34.1 SECONDS (25.4-37.6)
[2018-06-16 17:59] LABS: ANION GAP 8 MEQ/L (8-16); BLOOD UREA NITROGEN 14 MG/DL (7-18); CALCIUM LEVEL 8.1 MG/DL (8.8-10.2); CARBON DIOXIDE LEVEL 27 MEQ/L (21-32); CHLORIDE LEVEL 105 MEQ/L (98-107); CREATININE FOR GFR 0.87 MG/DL (0.55-1.30); GLOMERULAR FILTRATION RATE > 60.0 (>39); GLUCOSE, FASTING 125 MG/DL (70-100); POTASSIUM SERUM 4.5 MEQ/L (3.5-5.1); SODIUM LEVEL 140 MEQ/L (136-145)
== END ==
LOC: M LABDRAW1 16:56
DX: J15.8 Pneumonia due to other specified bacteria (principal); Z79.01 Long term (current) use of a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
CPT/HCPCS: 80048

== ENCOUNTER → 2018-06-28 | Outpatient (CLI) | payer MEDICARE, OTHER ==
[2018-06-28 13:31] LABS: BASO # 0.1 10^3/uL (0.0-0.2); BASO % 0.9 % (0.0-1.0); EOS # 0.2 10^3/uL (0.0-0.50); HEMATOCRIT 40.7 % (36.0-47.0); HEMOGLOBIN 13.2 g/dl (12.0-15.5); IMMATURE GRANULOCYTE % 0.4 % (0-3.0); LYMPH # 1.4 10^3/uL (1.5-4.5); LYMPH % 25.7 % (24.0-44.0); MEAN CORPUSCULAR HEMOGLOBIN 30.4 pg (27.0-33.0); MEAN CORPUSCULAR HGB CONC 32.4 g/dl (32.0-36.5); MEAN CORPUSCULAR VOLUME 93.8 fl (80.0-96.0); MONO # 0.4 10^3/uL (0.0-0.8); MONO % 7.8 % (0.0-5.0); NEUTROPHILS # 3.3 10^3/uL (1.8-7.7); NEUTROPHILS % 62.2 % (36.0-66.0); PLATELET COUNT, AUTOMATED 259 10^3/uL (150-450); RED BLOOD COUNT 4.34 10^6/uL (4.00-5.40); RED CELL DISTRIBUTION WIDTH 13.9 % (11.5-14.5); WHITE BLOOD COUNT 5.4 10^3/uL (4.0-10.0)
[2018-06-28 14:14] LABS: ALBUMIN 3.8 GM/DL (3.2-5.2); ALBUMIN/GLOBULIN RATIO 1.27 (1.00-1.93); ALKALINE PHOSPHATASE 59 U/L (45-117); ALT/SGPT 39 U/L (12-78); ANION GAP 6 MEQ/L (8-16); AST/SGOT 29 U/L (7-37); BILIRUBIN,TOTAL 0.7 MG/DL (0.2-1.0); BLOOD UREA NITROGEN 13 MG/DL (7-18); CALCIUM LEVEL 8.9 MG/DL (8.8-10.2); CARBON DIOXIDE LEVEL 28 MEQ/L (21-32); CHLORIDE LEVEL 104 MEQ/L (98-107); CREATININE FOR GFR 0.82 MG/DL (0.55-1.30); FREE T4 0.91 NG/DL (0.76-1.46); GLOMERULAR FILTRATION RATE > 60.0 (>39); GLUCOSE, FASTING 89 MG/DL (70-100); POTASSIUM SERUM 4.5 MEQ/L (3.5-5.1); SODIUM LEVEL 138 MEQ/L (136-145); TOTAL PROTEIN 6.8 GM/DL (6.4-8.2); TROPONIN I < 0.02 NG/ML (< 0.10)
== END ==
LOC: M SMT 11:44
DX: R07.9 Chest pain, unspecified (principal)
CPT/HCPCS: 84443

== ENCOUNTER → 2018-07-13 | Outpatient (CLI) | payer MEDICARE, OTHER ==
[2018-07-13 14:50] LABS: TOTAL 25(OH) VITAMIN D 70.9 NG/ML (30.0-100.0)
== END ==
LOC: M SMT 09:03
DX: E55.9 Vitamin D deficiency, unspecified (principal)
CPT/HCPCS: 82310

== ENCOUNTER → 2018-07-18 | Outpatient (REF) | payer MEDICARE, OTHER ==
[~2018-07-18] MED LIST changes: +MIRA33504 PO; +PREV1CAP PO; +ZOFR4TAB14 PO; -ZOFR4TAB3 PO
[2018-07-18 13:02] LABS: FREE T4 0.84 NG/DL (0.76-1.46); THYROID STIMULATING HORMONE 1.97 uIU/ML (0.358-3.740)
== END ==
LOC: M LABDRAW1 09:19
PROVIDERS: ATTEND Nurse Practitioner Family
DX: E05.90 Thyrotoxicosis, unspecified without thyrotoxic crisis or storm (principal)

== ENCOUNTER → 2018-08-17 | Outpatient (REF) | payer MEDICARE, OTHER ==
[2018-08-17 13:05] LABS: HEMATOCRIT 42.9 % (36.0-47.0); HEMOGLOBIN 13.8 g/dl (12.0-15.5); MEAN CORPUSCULAR HEMOGLOBIN 30.2 pg (27.0-33.0); MEAN CORPUSCULAR HGB CONC 32.2 g/dl (32.0-36.5); MEAN CORPUSCULAR VOLUME 93.9 fl (80.0-96.0); PLATELET COUNT, AUTOMATED 239 10^3/uL (150-450); RED BLOOD COUNT 4.57 10^6/uL (4.00-5.40)
[2018-08-17 13:45] LABS: ALBUMIN 3.9 GM/DL (3.2-5.2); ALT/SGPT 25 U/L (12-78); BILIRUBIN,TOTAL 0.6 MG/DL (0.2-1.0); BLOOD UREA NITROGEN 18 MG/DL (7-18); C REACTIVE PROTEIN QUANTITATIV < 0.30 MG/DL (0.00-0.30); CALCIUM LEVEL 8.9 MG/DL (8.8-10.2); CARBON DIOXIDE LEVEL 28 MEQ/L (21-32); CHLORIDE LEVEL 103 MEQ/L (98-107); CREATININE FOR GFR 0.79 MG/DL (0.55-1.30); GLOMERULAR FILTRATION RATE > 60.0 (>39); GLUCOSE, FASTING 98 MG/DL (70-100); POTASSIUM SERUM 3.9 MEQ/L (3.5-5.1); SODIUM LEVEL 138 MEQ/L (136-145); TOTAL PROTEIN 6.9 GM/DL (6.4-8.2); VITAMIN B12 LEVEL 464 PG/ML (247-911)
[2018-08-17 14:25] LABS: HEPATITIS C VIRUS ABY INDEX 0.1 INDEX (<0.8)
== END ==
LOC: M LABDRAW1 12:46
PROVIDERS: ATTEND Internal Medicine Gastroenterology
DX: R14.3 Flatulence (principal); K59.00 Constipation, unspecified; K64.4 Residual hemorrhoidal skin tags; K21.9 Gastro-esophageal reflux disease without esophagitis

== ENCOUNTER → 2018-09-27 | Outpatient (REF) | payer MEDICARE, OTHER ==
[2018-09-27 14:06] LABS: APPEARANCE, URINE HAZY (CLEAR); BACTERIA, URINE AUTO 1+ (NEGATIVE); BILIRUBIN, URINE AUTO NEGATIVE (NEGATIVE); BLOOD, URINE BLOOD 1+ (NEGATIVE); COLOR, URINE YELLOW (YELLOW); GLUCOSE, URINE (UA) AUTO NEGATIVE (NEGATIVE); KETONE, URINE AUTO NEGATIVE (NEGATIVE); LEUKOCYTE ESTERASE, URINE AUTO 2+ (NEGATIVE); MUCUS, URINE SMALL (NEGATIVE); NITRITE, URINE AUTO POSITIVE (NEGATIVE); PROTEIN, URINE AUTO NEGATIVE (NEGATIVE); RBC, URINE AUTO 4 /HPF (0-3); SQUAMOUS EPITHELIAL CELL UR AU 6 /HPF (0-6); UROBILINOGEN, URINE AUTO 0.2 mg/dL (0.0-2.0); WBC, URINE AUTO 81 /HPF (0-3)
== END ==
LOC: M LAB REF 13:33
PROVIDERS: ATTEND Nurse Practitioner Women's Health
DX: N39.0 Urinary tract infection, site not specified (principal); Z79.01 Long term (current) use of a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

== ENCOUNTER → 2018-09-28 | Outpatient (REF) | payer MEDICARE, OTHER ==
[2018-09-28 20:07] LABS: APPEARANCE, URINE HAZY (CLEAR); BACTERIA, URINE AUTO 1+ (NEGATIVE); BILIRUBIN, URINE AUTO NEGATIVE (NEGATIVE); BLOOD, URINE BLOOD 2+ (NEGATIVE); COLOR, URINE YELLOW (YELLOW); GLUCOSE, URINE (UA) AUTO NEGATIVE (NEGATIVE); KETONE, URINE AUTO NEGATIVE (NEGATIVE); LEUKOCYTE ESTERASE, URINE AUTO TRACE (NEGATIVE); MUCUS, URINE SMALL (NEGATIVE); NITRITE, URINE AUTO POSITIVE (NEGATIVE); PROTEIN, URINE AUTO NEGATIVE (NEGATIVE); RBC, URINE AUTO 3 /HPF (0-3); SQUAMOUS EPITHELIAL CELL UR AU 4 /HPF (0-6); UROBILINOGEN, URINE AUTO 0.2 mg/dL (0.0-2.0); WBC, URINE AUTO 26 /HPF (0-3)
== END ==
LOC: M LAB REF 13:41
PROVIDERS: ATTEND Physician Assistant
DX: N39.0 Urinary tract infection, site not specified (principal); Z79.01 Long term (current) use of a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

== ENCOUNTER → 2018-10-06 | Outpatient (REF) | payer MEDICARE, OTHER | LOC: M SMT 13:11 | PROVIDERS: ATTEND Specialist | DX: N39.0 Urinary tract infection, site not specified (principal) | CPT/HCPCS: 87480; 87510; 87660; G0463 ==

== ENCOUNTER 2018-11-02 08:35 | Outpatient (RCR) | payer MEDICARE, OTHER ==
[~2018-11-02 08:35] MED LIST changes: -/AMLO25TA PO; -/ESOM40CA PO; -/PANT40TA; -/WARF3TA PO; +COUM1TAB19 PO; +NEXI1CAP3 PO; +NORV2TAB PO; +PROT1TAB2
== END 2018-11-29 ==
LOC: M PT 08:35
PROVIDERS: ATTEND Specialist
DX: M62.89 Other specified disorders of muscle (principal); N94.819 Vulvodynia, unspecified; N30.90 Cystitis, unspecified without hematuria

== ENCOUNTER → 2018-12-14 | Outpatient (CLI) | payer MEDICARE, OTHER ==
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
[2018-12-14 12:46] LABS: BASO % 0.4 % (0.0-1.0); EOS # 0.2 10^3/uL (0.0-0.50); EOS % 1.6 % (0.0-3.0); HEMATOCRIT 40.5 % (36.0-47.0); LYMPH # 1.4 10^3/uL (1.5-4.5); LYMPH % 14.7 % (24.0-44.0); MEAN CORPUSCULAR HEMOGLOBIN 29.8 pg (27.0-33.0); MEAN CORPUSCULAR HGB CONC 32.1 g/dl (32.0-36.5); MEAN CORPUSCULAR VOLUME 92.9 fl (80.0-96.0); MONO # 0.6 10^3/uL (0.0-0.8); MONO % 5.8 % (0.0-5.0); NEUTROPHILS # 7.5 10^3/uL (1.8-7.7); NEUTROPHILS % 76.8 % (36.0-66.0); PLATELET COUNT, AUTOMATED 224 10^3/uL (150-450); RED BLOOD COUNT 4.36 10^6/uL (4.00-5.40); WHITE BLOOD COUNT 9.8 10^3/uL (4.0-10.0)
[2018-12-14 13:19] LABS: ALT/SGPT 30 U/L (12-78); BILIRUBIN,TOTAL 0.6 MG/DL (0.2-1.0); BLOOD UREA NITROGEN 23 MG/DL (7-18); CALCIUM LEVEL 8.6 MG/DL (8.8-10.2); CARBON DIOXIDE LEVEL 27 MEQ/L (21-32); CHLORIDE LEVEL 108 MEQ/L (98-107); CREATININE FOR GFR 0.91 MG/DL (0.55-1.30); FREE T4 0.91 NG/DL (0.76-1.46); GLOMERULAR FILTRATION RATE > 60.0 (>39); GLUCOSE, FASTING 90 MG/DL (70-100); POTASSIUM SERUM 4.1 MEQ/L (3.5-5.1); SODIUM LEVEL 140 MEQ/L (136-145); TOTAL PROTEIN 6.8 GM/DL (6.4-8.2)
== END ==
LOC: M LAB 11:42
PROVIDERS: ATTEND Family Medicine
DX: R90.82 White matter disease, unspecified (principal); R63.6 Underweight; R42 Dizziness and giddiness; Z79.899 Other long term (current) drug therapy; Z79.01 Long term (current) use of a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

== ENCOUNTER 2018-12-22 08:33 | Outpatient (RCR) | payer MEDICARE, OTHER | END 2018-12-30 | LOC: M PT 08:33 | PROVIDERS: ATTEND Specialist | DX: M62.89 Other specified disorders of muscle (principal); N94.819 Vulvodynia, unspecified; N30.90 Cystitis, unspecified without hematuria ==

== ENCOUNTER → 2019-01-04 | Outpatient (REF) | payer MEDICARE, OTHER ==
[2019-01-04 12:08] LABS: CALCIUM LEVEL 8.5 MG/DL (8.8-10.2); FREE T4 0.82 NG/DL (0.76-1.46); THYROID STIMULATING HORMONE 2.41 uIU/ML (0.358-3.740)
== END ==
LOC: M LABDRAW1 08:51
PROVIDERS: ATTEND Nurse Practitioner Family
DX: M81.0 Age-related osteoporosis without current pathological fracture (principal); E05.90 Thyrotoxicosis, unspecified without thyrotoxic crisis or storm

== ENCOUNTER → 2019-01-04 | Outpatient (REF) | payer MEDICARE, OTHER ==
[2019-01-04 11:48] LABS: HEMATOCRIT 41.8 % (36.0-47.0); HEMOGLOBIN 13.6 g/dl (12.0-15.5); MEAN CORPUSCULAR HEMOGLOBIN 31.1 pg (27.0-33.0); MEAN CORPUSCULAR HGB CONC 32.5 g/dl (32.0-36.5); MEAN CORPUSCULAR VOLUME 95.7 fl (80.0-96.0); PLATELET COUNT, AUTOMATED 233 10^3/uL (150-450); RED BLOOD COUNT 4.37 10^6/uL (4.00-5.40); WHITE BLOOD COUNT 5.8 10^3/uL (4.0-10.0)
[2019-01-04 11:59] LABS: INR 1.62; PROTHROMBIN TIME 19.5 SECONDS (12.1-14.4)
[2019-01-04 12:16] LABS: ALBUMIN 3.7 GM/DL (3.2-5.2); ALT/SGPT 45 U/L (12-78); BILIRUBIN,TOTAL 0.7 MG/DL (0.2-1.0); BLOOD UREA NITROGEN 18 MG/DL (7-18); CALCIUM LEVEL 8.4 MG/DL (8.8-10.2); CARBON DIOXIDE LEVEL 27 MEQ/L (21-32); CHLORIDE LEVEL 107 MEQ/L (98-107); CREATININE FOR GFR 0.83 MG/DL (0.55-1.30); GLOMERULAR FILTRATION RATE > 60.0 (>39); GLUCOSE, FASTING 90 MG/DL (70-100); MAGNESIUM LEVEL 2.3 MG/DL (1.8-2.4); POTASSIUM SERUM 4.3 MEQ/L (3.5-5.1); SODIUM LEVEL 141 MEQ/L (136-145); TOTAL 25(OH) VITAMIN D 62.5 NG/ML (30.0-100.0); TOTAL PROTEIN 7.1 GM/DL (6.4-8.2); VITAMIN B12 LEVEL 515 PG/ML (247-911)
[2019-01-11 00:07] LABS: F002-IgE Milk < 0.10 kU/L (Class 0); F004-IgE Wheat < 0.10 kU/L (Class 0); F013-IgE Peanut < 0.10 kU/L (Class 0); F014-IgE Soybean < 0.10 kU/L (Class 0); F026-IgE Pork < 0.10 kU/L (Class 0); F027-IgE Beef < 0.10 kU/L (Class 0); F245-IgE Egg, Whole < 0.10 kU/L (Class 0); FX02-IgE Food Mix (Sea Foods) Negative (.)
== END ==
LOC: M LABDRAW1 08:53
PROVIDERS: ATTEND Internal Medicine Gastroenterology
DX: R14.3 Flatulence (principal); K59.00 Constipation, unspecified; K21.9 Gastro-esophageal reflux disease without esophagitis; R11.0 Nausea; K66.0 Peritoneal adhesions (postprocedural) (postinfection); R63.5 Abnormal weight gain; Z86.010 Personal history of colon polyps; R14.2 Eructation; M81.0 Age-related osteoporosis without current pathological fracture; E05.90 Thyrotoxicosis, unspecified without thyrotoxic crisis or storm; T78.40XA Allergy, unspecified, initial encounter

== ENCOUNTER → 2019-02-01 | Outpatient (REF) | payer MEDICARE, OTHER | LOC: M LABDRAW1 13:19 | PROVIDERS: ATTEND Nurse Practitioner Family | DX: M81.0 Age-related osteoporosis without current pathological fracture (principal) ==

== ENCOUNTER → 2019-05-23 | Outpatient (REF) | payer MEDICARE, OTHER ==
[2019-05-23 12:43] LABS: HEMATOCRIT 41.5 % (36.0-47.0); HEMOGLOBIN 13.2 g/dl (12.0-15.5); MEAN CORPUSCULAR HEMOGLOBIN 29.7 pg (27.0-33.0); MEAN CORPUSCULAR HGB CONC 31.8 g/dl (32.0-36.5); MEAN CORPUSCULAR VOLUME 93.5 fl (80.0-96.0); PLATELET COUNT, AUTOMATED 245 10^3/uL (150-450); RED BLOOD COUNT 4.44 10^6/uL (4.00-5.40); WHITE BLOOD COUNT 5.2 10^3/uL (4.0-10.0)
[2019-05-23 20:44] LABS: ALBUMIN 3.9 GM/DL (3.2-5.2); ALT/SGPT 28 U/L (12-78); BLOOD UREA NITROGEN 19 MG/DL (7-18); C REACTIVE PROTEIN QUANTITATIV < 0.30 MG/DL (0.00-0.30); CALCIUM LEVEL 9.1 MG/DL (8.8-10.2); CARBON DIOXIDE LEVEL 28 MEQ/L (21-32); CHLORIDE LEVEL 107 MEQ/L (98-107); CREATININE FOR GFR 0.93 MG/DL (0.55-1.30); FERRITIN 64 NG/ML (8-252); GLOMERULAR FILTRATION RATE > 60.0 (>39); GLUCOSE, FASTING 96 MG/DL (70-100); IRON (FE) 81 UG/DL (50-170); MAGNESIUM LEVEL 1.9 MG/DL (1.8-2.4); PERCENT SATURATION 27.3 % (13.2-45.0); POTASSIUM SERUM 3.8 MEQ/L (3.5-5.1); SODIUM LEVEL 139 MEQ/L (136-145); TOTAL IRON BINDING CAPACITY 297 UG/DL (250-450); TOTAL PROTEIN 7.2 GM/DL (6.4-8.2); VITAMIN B12 LEVEL 403 PG/ML (247-911)
== END ==
LOC: M LABDRAW1 08:43
PROVIDERS: ATTEND Internal Medicine Gastroenterology
DX: K21.9 Gastro-esophageal reflux disease without esophagitis (principal); R14.3 Flatulence; E07.9 Disorder of thyroid, unspecified; D50.9 Iron deficiency anemia, unspecified

== ENCOUNTER → 2019-07-20 | Outpatient (REF) | payer MEDICARE, OTHER ==
[2019-07-20 16:12] LABS: CALCIUM LEVEL 8.7 MG/DL (8.8-10.2); FREE T4 0.83 NG/DL (0.76-1.46); THYROID STIMULATING HORMONE 2.99 uIU/ML (0.358-3.740)
== END ==
LOC: M LABDRAW1 13:25
PROVIDERS: ATTEND Internal Medicine Endocrinology, Diabetes & Metabolism
DX: M81.0 Age-related osteoporosis without current pathological fracture (principal); E55.9 Vitamin D deficiency, unspecified; E05.90 Thyrotoxicosis, unspecified without thyrotoxic crisis or storm

== ENCOUNTER → 2019-09-01 | Outpatient (CLI) | payer MEDICARE, OTHER ==
[2019-09-01 10:09] LABS: BASO # 0.1 10^3/uL (0.0-0.2); BASO % 1.1 % (0.0-1.0); EOS # 0.2 10^3/uL (0.0-0.5); EOS % 3.8 % (0.0-3.0); HEMATOCRIT 40.8 % (36.0-47.0); HEMOGLOBIN 13.1 g/dl (12.0-15.5); LYMPH # 1.4 10^3/uL (1.5-5.0); LYMPH % 24.5 % (24.0-44.0); MEAN CORPUSCULAR HEMOGLOBIN 29.8 pg (27.0-33.0); MEAN CORPUSCULAR HGB CONC 32.1 g/dl (32.0-36.5); MEAN CORPUSCULAR VOLUME 92.9 fl (80.0-96.0); MONO # 0.4 10^3/uL (0.0-0.8); MONO % 7.8 % (0.0-5.0); NEUTROPHILS # 3.4 10^3/uL (1.5-8.5); NEUTROPHILS % 62.4 % (36.0-66.0); PLATELET COUNT, AUTOMATED 226 10^3/uL (150-450); RED BLOOD COUNT 4.39 10^6/uL (4.00-5.40); WHITE BLOOD COUNT 5.5 10^3/uL (4.0-10.0)
[2019-09-01 11:06] LABS: ALBUMIN 3.7 GM/DL (3.2-5.2); ALT/SGPT 29 U/L (12-78); BILIRUBIN,TOTAL 0.7 MG/DL (0.2-1.0); BLOOD UREA NITROGEN 20 MG/DL (7-18); CALCIUM LEVEL 9.2 MG/DL (8.8-10.2); CARBON DIOXIDE LEVEL 27 MEQ/L (21-32); CHLORIDE LEVEL 104 MEQ/L (98-107); CREATININE FOR GFR 0.91 MG/DL (0.55-1.30); FREE T4 0.94 NG/DL (0.76-1.46); GLOMERULAR FILTRATION RATE > 60.0 (>39); GLUCOSE, FASTING 88 MG/DL (70-100); NT-PRO BNP 302 PG/ML (<125); POTASSIUM SERUM 4.5 MEQ/L (3.5-5.1); SODIUM LEVEL 139 MEQ/L (136-145); TOTAL PROTEIN 7.2 GM/DL (6.4-8.2)
== END ==
LOC: M WUC 08:38
PROVIDERS: ATTEND Physician Assistant
DX: R60.9 Edema, unspecified (principal)

== ENCOUNTER → 2019-09-08 | Outpatient (REF) | payer MEDICARE, OTHER ==
[2019-09-08 14:25] LABS: APPEARANCE, URINE HAZY (CLEAR); BACTERIA, URINE AUTO 2+ (NEGATIVE); BILIRUBIN, URINE AUTO NEGATIVE (NEGATIVE); BLOOD, URINE BLOOD NEGATIVE (NEGATIVE); COLOR, URINE YELLOW (YELLOW); GLUCOSE, URINE (UA) AUTO NEGATIVE (NEGATIVE); KETONE, URINE AUTO NEGATIVE (NEGATIVE); LEUKOCYTE ESTERASE, URINE AUTO NEGATIVE (NEGATIVE); MUCUS, URINE SMALL (NEGATIVE); NITRITE, URINE AUTO NEGATIVE (NEGATIVE); PROTEIN, URINE AUTO 1+ mg/dL (NEGATIVE); RBC, URINE AUTO 5 /HPF (0-3); SPECIFIC GRAVITY URINE AUTO 1.019 (1.002-1.035); SQUAMOUS EPITHELIAL CELL UR AU 9 /HPF (0-6); UROBILINOGEN, URINE AUTO 0.2 mg/dL (0.0-2.0); WBC, URINE AUTO 3 /HPF (0-3)
== END ==
LOC: M LAB REF 14:06
PROVIDERS: ATTEND Physician Assistant
DX: R30.0 Dysuria (principal)

== ENCOUNTER → 2019-10-03 | Outpatient (CLI) | payer MEDICARE, OTHER ==
--- NOTE | 2019-10-03 14:44 | REP ---
ABDOMINAL SERIES, TWO VIEWS: Supine and erect views of the abdomen demonstrate no free air and no evidence of small bowel obstruction. Scattered air is seen throughout the GI tract in a relatively nonspecific pattern. No dilated small bowel loops are seen and there are no air fluid levels on the upright view. There is antireflux device seen at the gastroesophageal junction. There are degenerative changes of the spine of a mild degree. IMPRESSION: No free air or obstruction. Electronically Signed by Jonathan Duque MD 10/03/2019 08:00 P
[2019-10-03 16:35] LABS: BASO # 0.1 10^3/uL (0.0-0.2); BASO % 0.7 % (0.0-1.0); EOS # 0.2 10^3/uL (0.0-0.5); EOS % 2.7 % (0.0-3.0); HEMATOCRIT 41.5 % (36.0-47.0); HEMOGLOBIN 13.4 g/dl (12.0-15.5); LYMPH # 1.6 10^3/uL (1.5-5.0); LYMPH % 21.8 % (24.0-44.0); MEAN CORPUSCULAR HEMOGLOBIN 30.1 pg (27.0-33.0); MEAN CORPUSCULAR HGB CONC 32.3 g/dl (32.0-36.5); MEAN CORPUSCULAR VOLUME 93.3 fl (80.0-96.0); MONO # 0.6 10^3/uL (0.0-0.8); MONO % 7.9 % (0.0-5.0); NEUTROPHILS # 4.7 10^3/uL (1.5-8.5); NEUTROPHILS % 66.6 % (36.0-66.0); PLATELET COUNT, AUTOMATED 237 10^3/uL (150-450); RED BLOOD COUNT 4.45 10^6/uL (4.00-5.40); WHITE BLOOD COUNT 7.1 10^3/uL (4.0-10.0)
[2019-10-03 16:59] LABS: ALBUMIN 4.2 GM/DL (3.2-5.2); BILIRUBIN,DIRECT 0.2 MG/DL (0.0-0.2); BILIRUBIN,TOTAL 0.8 MG/DL (0.2-1.0); CALCIUM LEVEL 8.9 MG/DL (8.8-10.2); GLOMERULAR FILTRATION RATE 57.9 (>39); POTASSIUM SERUM 4.1 MEQ/L (3.5-5.1); TOTAL PROTEIN 7.7 GM/DL (6.4-8.2)
== END ==
LOC: M WUC 13:18
PROVIDERS: ATTEND Physician Assistant
DX: R14.0 Abdominal distension (gaseous) (principal)

== ENCOUNTER → 2019-10-16 | Outpatient (REF) | payer MEDICARE, OTHER | LOC: M LAB REF 17:18 | PROVIDERS: ATTEND Physician Assistant | DX: R39.15 Urgency of urination (principal) ==

== ENCOUNTER → 2019-10-17 | Outpatient (REF) | payer MEDICARE, OTHER | LOC: M LAB REF 16:15 | PROVIDERS: ATTEND Physician Assistant | DX: R06.2 Wheezing (principal) | CPT/HCPCS: 87486; 87581; 87633; 87798; U0002 ==

== ENCOUNTER → 2019-11-04 | Outpatient (CLI) | payer MEDICARE, OTHER | LOC: M LABSMTC 11:59 | PROVIDERS: ATTEND Family Medicine | DX: Z11.59 Encounter for screening for other viral diseases (principal); Z20.828 Contact with and (suspected) exposure to other viral communicable diseases ==

== ENCOUNTER 2019-11-22 09:25 | Emergency (ER) | payer MEDICARE, OTHER ==
[~2019-11-22] VITALS: Ht 165.1 cm; Wt 70.5 kg
[2019-11-22 10:59] LABS: VENOUS BASE EXCESS 0.2 (-2.0-2.0); VENOUS HCO3 26.4 MEQ/L (23.0-27.0); VENOUS O2 SATURATION 98.1 % (60.0-80.0); VENOUS PARTIAL PRESSURE CO2 48.9 mmHg (38.0-50.0); VENOUS PARTIAL PRESSURE O2 117.8 mmHg (30.0-50.0); VENOUS STANDARD HCO3 24.7 MEQ/L; VENOUS TOTAL CO2 27.9 MEQ/L (24.0-28.0)
--- NOTE | 2019-11-22 11:01 | REP ---
CHEST SINGLE VIEW: There is no evidence of acute infiltrate. No pleural effusion is seen. The heart is normal in size. The mediastinal silhouette is unremarkable. The visualized osseous structures are intact. IMPRESSION: No acute pulmonary disease. Electronically Signed by Jonathan Duque MD 11/22/2019 11:18 A
[2019-11-22 11:10] LABS: BLOOD UREA NITROGEN 19 MG/DL (7-18); CALCIUM LEVEL 8.7 MG/DL (8.8-10.2); CARBON DIOXIDE LEVEL 27 MEQ/L (21-32); CHLORIDE LEVEL 106 MEQ/L (98-107); CK-MB VALUE MASS < 1.0 NG/ML (<3.6); CPK CREATINE PHOSPHOKINASE 65 U/L (26-192); CREATININE FOR GFR 0.85 MG/DL (0.55-1.30); GLOMERULAR FILTRATION RATE > 60.0 (>39); GLUCOSE, FASTING 95 MG/DL (70-100); MB/CK RELATIVE INDEX 1.54 (< OR =4); NT-PRO BNP 99 PG/ML (<125); POTASSIUM SERUM 4.1 MEQ/L (3.5-5.1); SODIUM LEVEL 142 MEQ/L (136-145); TROPONIN I < 0.02 NG/ML (< 0.10)
[2019-11-22 11:12] LABS: BASO # 0.1 10^3/uL (0.0-0.2); BASO % 0.9 % (0.0-1.0); EOS # 0.1 10^3/uL (0.0-0.5); EOS % 2.2 % (0.0-3.0); HEMATOCRIT 39.3 % (36.0-47.0); HEMOGLOBIN 12.7 g/dl (12.0-15.5); LYMPH # 1.2 10^3/uL (1.5-5.0); LYMPH % 19.1 % (24.0-44.0); MEAN CORPUSCULAR HEMOGLOBIN 29.7 pg (27.0-33.0); MEAN CORPUSCULAR HGB CONC 32.3 g/dl (32.0-36.5); MONO # 0.5 10^3/uL (0.0-0.8); MONO % 7.7 % (0.0-5.0); NEUTROPHILS # 4.4 10^3/uL (1.5-8.5); NEUTROPHILS % 69.8 % (36.0-66.0); PLATELET COUNT, AUTOMATED 235 10^3/uL (150-450); RED BLOOD COUNT 4.27 10^6/uL (4.00-5.40); WHITE BLOOD COUNT 6.3 10^3/uL (4.0-10.0)
[2019-11-22 11:30] LABS: INR 2.49; PARTIAL THROMBOPLASTIN TIME 32.4 SECONDS (25.0-38.4); PROTHROMBIN TIME 26.7 SECONDS (11.8-14.0)
[2019-11-22 12:29] VITALS: BP 152/72
--- NOTE | 2019-11-23 01:05 | ECGEPIP ---
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
== END 2019-11-22 12:32 | disposition home or self-care (01) ==
LOC: M ED 09:25
DX: R05 Cough (principal); R51 Headache; R06.2 Wheezing; I10 Essential (primary) hypertension; M81.0 Age-related osteoporosis without current pathological fracture; Z86.718 Personal history of other venous thrombosis and embolism; Z91.041 Radiographic dye allergy status; Z88.2 Allergy status to sulfonamides; Z88.8 Allergy status to other drugs, medicaments and biological substances; Z88.5 Allergy status to narcotic agent; Z88.1 Allergy status to other antibiotic agents; Z79.899 Other long term (current) drug therapy; Z79.82 Long term (current) use of aspirin; Z79.01 Long term (current) use of a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

== ENCOUNTER 2019-12-13 16:25 | Inpatient (IN) | payer MEDICARE, OTHER ==
[~2019-12-13] VITALS: Ht 162.6 cm; Wt 71.2 kg
[2019-12-13 17:19] LABS: BASO # 0.1 10^3/uL (0.0-0.2); BASO % 0.9 % (0.0-1.0); EOS # 0.2 10^3/uL (0.0-0.5); HEMATOCRIT 40.7 % (36.0-47.0); HEMOGLOBIN 13.2 g/dl (12.0-15.5); LYMPH # 1.5 10^3/uL (1.5-5.0); LYMPH % 18.3 % (24.0-44.0); MEAN CORPUSCULAR HEMOGLOBIN 30.2 pg (27.0-33.0); MEAN CORPUSCULAR HGB CONC 32.4 g/dl (32.0-36.5); MEAN CORPUSCULAR VOLUME 93.1 fl (80.0-96.0); MONO # 0.5 10^3/uL (0.0-0.8); MONO % 6.6 % (0.0-5.0); NEUTROPHILS # 5.8 10^3/uL (1.5-8.5); PLATELET COUNT, AUTOMATED 221 10^3/uL (150-450); RED BLOOD COUNT 4.37 10^6/uL (4.00-5.40); WHITE BLOOD COUNT 8.1 10^3/uL (4.0-10.0)
[2019-12-13 17:30] LABS: INR 3.37; PROTHROMBIN TIME 34.1 SECONDS (11.8-14.0)
[2019-12-13 17:31] LABS: PARTIAL THROMBOPLASTIN TIME 42.7 SECONDS (25.0-38.4)
--- NOTE | 2019-12-13 17:44 | REPVR ---
PROCEDURE INFORMATION: Exam: CT Abdomen And Pelvis Without Contrast Exam date and time: 12/13/2019 5:14 PM Age: 74 years old Clinical indication: Abdominal pain; Generalized; Additional info: Gen abd pain, hematemesis TECHNIQUE: Imaging protocol: Computed tomography of the abdomen and pelvis without contrast. Radiation optimization: All CT scans at this facility use at least one of these dose optimization techniques: automated exposure control; mA and/or kV adjustment per patient size (includes targeted exams where dose is matched to clinical indication); or iterative reconstruction. COMPARISON: CT ABD PELVIS W/O CONTRAST 10/18/2016 5:10 PM FINDINGS: Liver: Unremarkable. Gallbladder and bile ducts: Unremarkable. No ductal dilation. Pancreas: Unremarkable. No ductal dilation. Spleen: Unremarkable. Adrenals: Unremarkable. Kidneys and ureters: Several bilateral fluid density parapelvic renal cysts, largest on the left measuring 2 cm, to which no further follow-up is necessary. No hydronephrosis or stones. Stomach and bowel: Circular surgical device surrounding the proximal stomach. Scattered colonic diverticulosis without evidence of diverticulitis. Small bowel loops are unremarkable. Appendix: No evidence of appendicitis. Intraperitoneal space: No pneumoperitoneum. No significant fluid collection. Vasculature: Mild atherosclerotic calcifications of the aorta and major branches. Lymph nodes: No enlarged lymph nodes. Bladder: Unremarkable. Reproductive: Unremarkable as visualized. Bones/joints: Multilevel mild degenerative changes of the visualized spine. No acute osseous lesion or fracture. Soft tissues: Unremarkable. IMPRESSION: 1. No acute intra-abdominal findings. 2. Circular surgical device surrounding the proximal stomach. 3. Other chronic findings, as above. Electronically signed by: Molina Camara On 12/13/2019 17:43:56 PM
[2019-12-13 17:54] LABS: ALT/SGPT 31 U/L (12-78); BILIRUBIN,DIRECT 0.2 MG/DL (0.0-0.2); BILIRUBIN,TOTAL 0.7 MG/DL (0.2-1.0); BLOOD UREA NITROGEN 19 MG/DL (7-18); CALCIUM LEVEL 9.1 MG/DL (8.8-10.2); CARBON DIOXIDE LEVEL 29 MEQ/L (21-32); CHLORIDE LEVEL 106 MEQ/L (98-107); CK-MB VALUE MASS < 1.0 NG/ML (<3.6); CPK CREATINE PHOSPHOKINASE 79 U/L (26-192); CREATININE FOR GFR 0.87 MG/DL (0.55-1.30); GLOMERULAR FILTRATION RATE > 60.0 (>39); GLUCOSE, FASTING 104 MG/DL (70-100); LIPASE 74 U/L (73-393); MB/CK RELATIVE INDEX 1.27 (< OR =4); POTASSIUM SERUM 3.9 MEQ/L (3.5-5.1); SODIUM LEVEL 141 MEQ/L (136-145); TOTAL PROTEIN 7.5 GM/DL (6.4-8.2); TROPONIN I < 0.02 NG/ML (< 0.10)
[2019-12-13] MEDS ORDERED: NS 1,000 ML IV SCH (18:44)
[2019-12-13] MEDS ORDERED: PANTOPRAZOLE 40MG VIAL (C9113 PER 1) IV ONE (18:45)
[2019-12-13] MEDS ORDERED: ACETAMINOPHEN TAB 650MG DOSE (2X325MG) PO ONE (20:00)
[2019-12-13] MEDS ORDERED: ATOR40TA75 PO (20:14)
[2019-12-13] MEDS ORDERED: TRAV04OPD OU (20:14)
[2019-12-13] MEDS ORDERED: ASPI-161 PO (20:14)
[2019-12-13] MEDS ORDERED: VITAD1000T PO (20:14)
[2019-12-13] MEDS ORDERED: LINZ72CA PO (20:14)
[2019-12-13] MEDS ORDERED: PROP50TA3 PO (20:14)
[2019-12-13] MEDS ORDERED: TRAZ-252 PO (20:14)
[2019-12-13] MEDS ORDERED: WARF-18 PO (20:14)
[2019-12-13] MEDS ORDERED: CLON1TAB8 PO (20:14)
[2019-12-13] MEDS ORDERED: POLYOPD OU (20:14)
[2019-12-13] MEDS ORDERED: OMEP-218 PO (20:14)
[2019-12-13 23:10] VITALS: BP 166/74
[2019-12-13] MEDS ORDERED: SLF 3 ML SYR IV PRN (23:30)
[2019-12-14] MEDS: ATORVASTATIN 20 MG TAB PO SCH ×2 (00:12→20:52)
[2019-12-14] MEDS: traZODone 100 MG TAB PO SCH ×3 (00:12→19:34)
[2019-12-14] MEDS: LATANOPROST 0.005% OPHTH SOLN 2.5 ML OU SCH ×2 (00:12→20:53)
[2019-12-14] MEDS: POLYVINYL ALCOHOL OPHTH SOLN 15 ML(LIQUITEARS) OU SCH ×2 (00:12→20:53)
[2019-12-14 04:00] VITALS: BP 126/60
--- NOTE | 2019-12-14 04:15 | HPEPDOC ---
General Date of Admission December 13, 2019 at 20:45 Date of Service: December 13, 2019 Attending Physician: TUYET BARTON MD Chief Complaint The patient is a 74-year-old female admitted with a reason for visit of Gi Bleeding. 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 She had lightheadedness as well and epigastric abdominal pain and when her son and grandson realized that she had bloody emesis they insisted that she be brought to the ED. In the ED, she was hemodynamically stable, afebrile, had some bleeding on her L upper lip that she noted was due to trauma on transfer to come to the ED and had +FOBT. Work up was notable for WB 8.1, hgb 13.2, platelets 221, INR 3.37, normal LFTs, lipase and CT A/P without ajay acute pathology. She is now being admitted to medicine for observation of GIB and started on BID IV PPI, placed on clear liquid diet and will consider GI consult if GIB worsens or H/H downtrends. Home Medications Scheduled Aspirin (Aspirin EC) 81 Mg Tablet.dr, 81 MG PO DAILY, (Reported) Atorvastatin Calcium (Atorvastatin Calcium) 40 Mg Tablet, 40 MG PO QPM, (Reported) Cholecalciferol (Vitamin D3) (Vitamin D3) 1,000 Unit Tablet, 5,000 UNITS PO DAILY, (Reported) Clonazepam (Clonazepam) 1 Mg Tablet, 1 MG PO DAILY, (Reported) Omeprazole (Omeprazole) 20 Mg Capsule.dr, 20 MG PO DAILY, (Reported) Polyvinyl Alcohol (Artificial Tears) 15 Ml Drops, 1 DROP OU QHS, (Reported) Propylthiouracil (Propylthiouracil) 50 Mg Tablet, 50 MG PO 5XW, (Reported) QAM: MON THRU FRI Travoprost (Travatan Z) 0.004% 2.5ML Drops, 1 DROP OU QHS, (Reported) Trazodone HCl (Trazodone HCl) 50 Mg Tablet, 100 MG PO QHS, (Reported) Warfarin Sodium (Warfarin Sodium) 2.5 Mg Tablet, 2.5 MG PO QPM, (Reported) Scheduled PRN Linaclotide (Linzess) 72 Mcg Capsule, 72 MCG PO DAILY PRN for DIARRHEA, (Reported) Allergies Coded Allergies: Contrast Media (Verified Allergy, Severe, "convulse", 11/22/19) Quinolones (Verified Allergy, Intermediate, rash, swelling, 11/22/19) Sulfa (Sulfonamide Antibiotics) (Verified Allergy, Intermediate, rash, 11/22/19) ciprofloxacin (Verified Allergy, Intermediate, rash, 11/22/19) codeine (Verified Allergy, Intermediate, rash, 11/22/19) metoclopramide (Verified Allergy, Intermediate, rash, 11/22/19) morphine (Verified Allergy, Intermediate, rash, 11/22/19) prochlorperazine (Verified Allergy, Intermediate, rash, 11/22/19) Past Medical History Medical History 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 with one of her sons and grandchild A-FIB/CHADSVASC A-FIB History Current/History of A-Fib/PAF?: No Current PO Anticoag Therapy: No Age/Risk Factor Scoring CHADSVASC: CHADSVASC Response (Comments) Value Age Risk Factor Age 65-74 years old 1 Gender Risk Factor Female 1 Hx of CHF No 0 Hx of HTN Yes 1 Hx of Stroke/TIA/or VTE Yes 2 Hx of Diabetes No 0 Hx of Vascular Disease No 0 Total 5 Treatment Treatment ordered: NONE Reason Anticoagulant not given: Current bleeding Review of Systems Constitutional: Denies: Chills, Fever, Night Sweats Eyes: Denies: Pain, Vision change ENT: Denies: Head Aches, Ear Pain, Dysphagia Skin: Denies: Rash, Lesions, Breakdown Pulmonary: Denies: Dyspnea, Cough Cardiovascular: Denies: Chest Pain, Palpitations, Orthopnea, Paroxysmal Noc. Dyspnea, Lt Headedness Gastrointestinal: Reports: Nausea, Vomiting, Abdominal Pain, Other Symptoms (hematemesis); Denies: Diarrhea, Constipation, Melena, Hematochezia Genitourinary: Denies: Dysuria, Frequency, Incontinence, Retention Hematologic: Denies: Bruising, Bleeding Excessively Endocrine: Denies: Polydipsia, Polyphagia, Polyuria, Heat Intolerance, Cold Intolerance, Other Endocrine Sx Musculoskeletal: Denies: Neck Pain, Back Pain, Joint Pain, Muscle Pain, Spasms Neurological: Denies: Weakness, Numbness, Change in speech, Confusion Psych: Reports: Mood Normal, Anxiety; Denies: Depression, Memory Issues Physical Examination General Exam: Positive: Alert, Cooperative, No Acute Distress Eye Exam: Positive: PERRLA, Conjunctiva & lids normal, EOMI; Negative: Sclera icteric ENT Exam: Positive: Atraumatic, Mucous membr. moist/pink, Pharynx Normal Neck Exam: Positive: Supple; Negative: JVD, thyromegaly Chest Exam: Positive: Clear to auscultation, Normal air movement Heart Exam: Positive: Rate Normal, Regular Rhythm, Normal S1, Normal S2; Negative: Murmurs, Rubs Abdomen Exam: Positive: Normal bowel sounds, Soft, Other (mildly distended, w ith several healed surgical scars, with palpation of epigastric foreign insert) Extremity Exam: Positive: Normal pulses; Negative: Clubbing, Cyanosis, Edema Skin Exam: Positive: Nl turgor and temperature; Negative: Breakdown, Lesion Neuro Exam: Positive: Normal Gait, Normal Speech, Strength at 5/5 X4 ext, Cranial Nerves 3-12 NL Psych Exam: Positive: Mental status NL, Mood NL, Anxiety, Oriented x 3 Vital Signs Vital Signs Date Time Temp Pulse Resp B/P (MAP) Pulse Ox O2 Delivery O2 Flow Rate FiO2 12/13/19 23:10 98.0 67 16 166/74 (104) 97 Room Air Laboratory Data Labs 24H Laboratory Tests 2 12/13/19 17:11: Immature Granulocyte % (Auto) 0.2, Neutrophils (%) (Auto) 72.0H, Lymphocytes (%) (Auto) 18.3L, Monocytes (%) (Auto) 6.6H, Eosinophils (%) (Auto) 2.0, Basophils (%) (Auto) 0.9, Neutrophils # (Auto) 5.8, Lymphocytes # (Auto) 1.5, Monocytes # (Auto) 0.5, Eosinophils # (Auto) 0.2, Basophils # (Auto) 0.1, Nucleated Red Blood Cells % (auto) 0.0, Prothrombin Time 34.1H, Prothromb Time International Ratio 3.37, Activated Partial Thromboplast Time 42.7H, Anion Gap 6L, Glomerular Filtration Rate > 60.0, Calcium Level 9.1, Total Bilirubin 0.7, Direct Bilirubin 0.2, Aspartate Amino Transf (AST/SGOT) 18, Alanine Aminotransferase (ALT/SGPT) 31, Alkaline Phosphatase 62, Total Creatine Kinase 79, Creatine Kinase MB < 1.0, Creatine Kinase MB Relative Index 1.27, Troponin I < 0.02, Total Protein 7.5, Albumin 4.0, Albumin/Globulin Ratio 1.14, Lipase 74 CBC/BMP Laboratory Tests 12/13/19 17:11 Assessment/Plan 74 yo W with a history of 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 UGIB: mild likely gastritis -monitor CBC -BID IV PPI -will consider GI consult if H/H continues to drop or hematemesis persists, for now will medically manage with plan for outpatient GI f/u -hold warfarin for now, to consider restarting if H/H stable as she has a history of quickly developing clots when warfarin is held -clear liquid diet for now Protein C & S deficiency with history of multiple DVTs -therapeutic INR recently on warfarin -hold warfarin for now, recheck AM CBC, if stable, to consider restarting warfarin and monitor for further bleeding -daily INR Hyperthyroidism: -continue home PTU Anxiety: -continue home klonopin -continue home trazodone QHS Glaucoma: -continue home latanoprost HLD: -continue ASA, lipitor DVT ppx: therapeutic INR, SCDs. currently holding warfarin in the setting of UGIB Diet: clears Plan / VTE VTE Prophylaxis Ordered?: Yes VTE Exclusion Pharmacological: Active Bleeding TUYET BARTON MD December 14, 2019 04:15
[2019-12-14] MEDS: SLF 3 ML SYR IV SCH ×3 (04:16→20:52)
[2019-12-14] MEDS: ACETAMINOPHEN TAB 650MG DOSE (2X325MG) PO PRN ×3 (04:17→19:29)
[2019-12-14 06:13] LABS: HEMATOCRIT 34.9 % (36.0-47.0); HEMOGLOBIN 11.4 g/dl (12.0-15.5); MEAN CORPUSCULAR HGB CONC 32.7 g/dl (32.0-36.5); MEAN CORPUSCULAR VOLUME 91.8 fl (80.0-96.0); PLATELET COUNT, AUTOMATED 204 10^3/uL (150-450); WHITE BLOOD COUNT 5.1 10^3/uL (4.0-10.0)
[2019-12-14 06:16] LABS: INR 3.24
[2019-12-14 06:29] LABS: ALBUMIN 3.2 GM/DL (3.2-5.2); ALT/SGPT 19 U/L (12-78); BILIRUBIN,TOTAL 1.1 MG/DL (0.2-1.0); BLOOD UREA NITROGEN 15 MG/DL (7-18); CALCIUM LEVEL 7.6 MG/DL (8.8-10.2); CARBON DIOXIDE LEVEL 26 MEQ/L (21-32); CHLORIDE LEVEL 108 MEQ/L (98-107); CREATININE FOR GFR 0.69 MG/DL (0.55-1.30); GLOMERULAR FILTRATION RATE > 60.0 (>39); GLUCOSE, FASTING 87 MG/DL (70-100); POTASSIUM SERUM 3.9 MEQ/L (3.5-5.1); SODIUM LEVEL 141 MEQ/L (136-145); TOTAL PROTEIN 6.2 GM/DL (6.4-8.2)
[2019-12-14 08:00] VITALS: BP 130/60
[2019-12-14] MEDS: ASPIRIN 81 MG ENTERIC TAB PO SCH (09:45)
[2019-12-14] MEDS: VITAMIN D 1,000 INTERNATIONAL UNITS TABLET PO SCH (09:45)
[2019-12-14] MEDS: clonazePAM 1 MG TAB PO SCH (09:45)
[2019-12-14] MEDS: propylthiouraciL 50 MG TAB PO SCH (09:45)
[2019-12-14] MEDS: PANTOPRAZOLE 40MG VIAL (C9113 PER 1) IV SCH ×2 (09:45→20:53)
[2019-12-14 14:40] LABS: HEMOGLOBIN 11.9 g/dl (12.0-15.5)
[2019-12-14] MEDS: LACTOBACILLUS ACIDOPHILUS CAP (BACID) PO SCH (14:46)
[2019-12-14] MEDS: DOCUSATE SODIUM 100 MG CAP PO SCH (14:47)
--- NOTE | 2019-12-14 14:59 | IPNPDOC ---
Text Note Date of Service The patient was seen on 12/14/19. NOTE SUBJECTIVE: Corina Estrada was seen and examined this morning lying comfortably in bed. She states she is feeling well. She has been coughing up small amounts of blood overnight and this morning, but denies recurrent vomiting. She states she has an appetite and would like to try regular food. OBJECTIVE: VITAL SIGNS: See below GENERAL: Alert, comfortable, in no acute distress HEENT: Normocephalic, atraumatic, sclera anicteric, moist mucous membranes NECK: Supple, no lymphadenopathy CARDIOVASCULAR: Regular rate and rhythm, normal S1 and S2. No murmurs, rubs, or gallops RESPIRATORY: Clear to auscultation bilaterally with equal air entry bilaterally. No wheezing, rhonchi, or rales. ABDOMEN: Soft, nontender, nondistended, bowel sounds present EXTREMITIES: No cyanosis or edema. Pulses 2+/4 in bilateral upper and lower extremities SKIN: No rash NEUROLOGIC: Alert and oriented 3 to person, place and time. 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 PLAN: # UGIB -H/H initially dropped, remains stable today -BID IV PPI -will consider GI consult if H/H continues to drop or hematemesis persists, for now will medically manage with plan for outpatient GI f/u -hold warfarin for now as her INR is supratherapeutic. -advance diet today as tolerated # Protein C & S deficiency with history of multiple DVTs -supratherapeutic INR, hold warfarin -daily INR, plan to restart warfarin to maintain INR 2-3 -as long as her H/H remains stable we will maintain her anticoagulation status, will reassess if she appears to be actively bleeding. # Hyperthyroidism: -continue home PTU # Anxiety: -continue home klonopin -continue home trazodone QHS # Glaucoma: -continue home latanoprost # HLD: -continue ASA, lipitor DVT ppx: on full anticoagulation with warfarin GI prophylaxis: IV Protonix BID Disposition: possible d/c in the next 24-48 hours if she does not appear to be actively bleeding. Attending attestation: I evaluated and examined the patient in person; I discussed the care with Resident in detail and agree with the plan above. VS,Fishbone, I+O VS, Fishbone, I+O Laboratory Tests 12/13/19 17:11 12/14/19 05:08 12/14/19 14:30 Vital Signs Date Time Temp Pulse Resp B/P (MAP) Pulse Ox O2 Delivery O2 Flow Rate FiO2 12/14/19 08:00 97.7 60 16 130/60 (83) 97 12/14/19 04:00 Room Air I&O- Last 24 Hours up to 6 AM 12/14/19 06:00 Intake Total 1000 ml Balance 1000 ml DORIAN GALLEGOS D.O. December 14, 2019 14:59 CONOR ROSA MD December 17, 2019 19:39
[2019-12-14 16:00] VITALS: BP 130/60
[2019-12-14 20:00] VITALS: BP 118/57
--- NOTE | 2019-12-14 22:08 | ECGEPIP ---
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
[2019-12-15] MEDS: SLF 3 ML SYR IV SCH ×2 (05:42→12:21)
[2019-12-15 06:16] LABS: HEMATOCRIT 35.9 % (36.0-47.0); HEMOGLOBIN 11.6 g/dl (12.0-15.5); MEAN CORPUSCULAR HEMOGLOBIN 29.8 pg (27.0-33.0); MEAN CORPUSCULAR HGB CONC 32.3 g/dl (32.0-36.5); MEAN CORPUSCULAR VOLUME 92.3 fl (80.0-96.0); PLATELET COUNT, AUTOMATED 210 10^3/uL (150-450); RED BLOOD COUNT 3.89 10^6/uL (4.00-5.40); WHITE BLOOD COUNT 5.4 10^3/uL (4.0-10.0)
[2019-12-15 06:30] VITALS: BP 121/57
[2019-12-15 06:31] LABS: INR 2.65; PROTHROMBIN TIME 28.1 SECONDS (11.8-14.0)
[2019-12-15 06:42] LABS: ALBUMIN 3.3 GM/DL (3.2-5.2); ALT/SGPT 29 U/L (12-78); BILIRUBIN,TOTAL 0.7 MG/DL (0.2-1.0); BLOOD UREA NITROGEN 19 MG/DL (7-18); CALCIUM LEVEL 8.1 MG/DL (8.8-10.2); CARBON DIOXIDE LEVEL 27 MEQ/L (21-32); CHLORIDE LEVEL 109 MEQ/L (98-107); CREATININE FOR GFR 0.84 MG/DL (0.55-1.30); GLOMERULAR FILTRATION RATE > 60.0 (>39); GLUCOSE, FASTING 99 MG/DL (70-100); POTASSIUM SERUM 4.1 MEQ/L (3.5-5.1); SODIUM LEVEL 144 MEQ/L (136-145); TOTAL PROTEIN 6.4 GM/DL (6.4-8.2)
[2019-12-15] MEDS: DOCUSATE SODIUM 100 MG CAP PO SCH (08:22)
[2019-12-15] MEDS: clonazePAM 1 MG TAB PO SCH (08:22)
[2019-12-15] MEDS: ASPIRIN 81 MG ENTERIC TAB PO SCH (08:22)
[2019-12-15] MEDS: PANTOPRAZOLE 40MG VIAL (C9113 PER 1) IV SCH (08:22)
[2019-12-15] MEDS: propylthiouraciL 50 MG TAB PO SCH (08:23)
[2019-12-15] MEDS: VITAMIN D 1,000 INTERNATIONAL UNITS TABLET PO SCH (08:23)
[2019-12-15] MEDS: LACTOBACILLUS ACIDOPHILUS CAP (BACID) PO SCH (08:23)
[2019-12-15] MEDS: ACETAMINOPHEN TAB 650MG DOSE (2X325MG) PO PRN ×2 (08:23→13:23)
--- NOTE | 2019-12-15 11:51 | DS.PDOC ---
Discharge Summary General Date of Admission December 13, 2019 at 20:45 Date of Discharge 12/15/2019 Primary Care Physician: SOFIA CERVANTES DO Attending Physician: CONOR ROSA MD Discharge Summary PROCEDURES PERFORMED DURING STAY: None. ADMITTING DIAGNOSES: 1. Acute anemia secondary to upper GI bleed 2. Protein C & S deficiency with history of multiple DVTs 3. Hyperthyroidism. 4. Anxiety. 5. Glaucoma 6. Hyperlipidemia DISCHARGE DIAGNOSES: 1. Acute anemia secondary to upper GI bleed, stable 2. Protein C & S deficiency with history of multiple DVTs 3. Hyperthyroidism. 4. Anxiety. 5. Glaucoma 6. Hyperlipidemia COMPLICATIONS/CHIEF COMPLAINT: Gi Bleeding. 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 She had lightheadedness as well and epigastric abd ominal pain and when her son and grandson realized that she had bloody emesis they insisted that she be brought to the ED. In the ED, she was hemodynamically stable, afebrile, had some bleeding on her L upper lip that she noted was due to trauma on transfer to come to the ED and had +FOBT. Work up was notable for WB 8.1, hgb 13.2, platelets 221, INR 3.37, normal LFTs, lipase and CT A/P without ajay acute pathology. She is now being admitted to medicine for observation of GIB and started on BID IV PPI, placed on clear liquid diet and will consider GI consult if GIB worsens or H/H downtrends. HOSPITAL COURSE: The patient was admitted to the hospital and her hematemesis resolved. Her H/H remained stable from admission. She was able to tolerate a diet which was advanced from clear fluids to a regular diet. Her INR was found to be supratherapeutic and her warfarin was subsequently held for two nights. Her INR trended down to the therapeutic range between 2-3. The patient was instructed to restart warfarin the night of discharge and follow up with her PCP regarding monitoring her INR. DISCHARGE MEDICATIONS: Please see below. ALLERGIES: Please see below. PHYSICAL EXAMINATION ON DISCHARGE: VITAL SIGNS: Please see below. GENERAL: Alert, comfortable, in no acute distress HEENT: Normocephalic, atraumatic, sclera anicteric, moist mucous membranes NECK: Supple, no lymphadenopathy CARDIOVASCULAR: Regular rate and rhythm, normal S1 and S2. No murmurs, rubs, or gallops RESPIRATORY: Clear to auscultation bilaterally with equal air entry bilaterally. No wheezing, rhonchi, or rales. ABDOMEN: Soft, nontender, nondistended, bowel sounds present EXTREMITIES: No cyanosis or edema. Pulses 2+/4 in bilateral upper and lower extremities SKIN: No rash NEUROLOGIC: Alert and oriented 3 to person, place and time. No focal deficits appreciated PSYCHIATRIC: Mood and affect appropriate LABORATORY DATA: Please see below. PROGNOSIS: Fair ACTIVITY: As tolerated. DIET: As tolerated. DISCHARGE PLAN: Home with follow up DISCHARGE INSTRUCTIONS: -Follow up with your PCP in 1 week -You can continue taking your warfarin as prescribed -If your symptoms return or your condition worsens, please call your PCP or return to the ED for further evaluation. ITEMS TO FOLLOWUP ON ON OUTPATIENT: 1. Upper GI bleed likely secondary to trauma 2. Supratherapeutic INR, now in the therapeutic range DISCHARGE CONDITION: Stable. TIME SPENT ON DISCHARGE: Greater than 35 minutes. Attending attestation: I evaluated and examined the patient in person; I discussed the care with Resident in detail and agree with the plan above. Vital Signs/I&Os Vital Signs Date Time Temp Pulse Resp B/P (MAP) Pulse Ox O2 Delivery O2 Flow Rate FiO2 12/15/19 06:30 98.9 72 20 121/57 (78) 97 Room Air I&O- Last 24 Hours up to 6 AM 12/15/19 06:00 Intake Total 1200 ml Output Total 350 ml Balance 850 ml Laboratory Data Labs 24H Laboratory Tests 2 12/15/19 05:54: Nucleated Red Blood Cells % (auto) 0.0, Prothrombin Time 28.1H, Prothromb Time International Ratio 2.65, Anion Gap 8, Glomerular Filtration Rate > 60.0, Calcium Level 8.1L, Total Bilirubin 0.7, Aspartate Amino Transf (AST/SGOT) 22, Alanine Aminotransferase (ALT/SGPT) 29, Alkaline Phosphatase 57, Total Protein 6 .4, Albumin 3.3, Albumin/Globulin Ratio 1.1L CBC/BMP Laboratory Tests 12/14/19 14:30 12/15/19 05:54 Discharge Medications Scheduled Aspirin (Aspirin EC) 81 Mg Tablet.dr, 81 MG PO DAILY, (Reported) Atorvastatin Calcium (Atorvastatin Calcium) 40 Mg Tablet, 40 MG PO QPM, (Reported) Cholecalciferol (Vitamin D3) (Vitamin D3) 1,000 Unit Tablet, 5,000 UNITS PO DAILY, (Reported) Clonazepam (Clonazepam) 1 Mg Tablet, 1 MG PO DAILY, (Reported) Omeprazole (Omeprazole) 20 Mg Capsule.dr, 20 MG PO DAILY, (Reported) Polyvinyl Alcohol (Artificial Tears) 15 Ml Drops, 1 DROP OU QHS, (Reported) Propylthiouracil (Propylthiouracil) 50 Mg Tablet, 50 MG PO 5XW, (Reported) QAM: MON THRU FRI Travoprost (Travatan Z) 0.004% 2.5ML Drops, 1 DROP OU QHS, (Reported) Trazodone HCl (Trazodone HCl) 50 Mg Tablet, 100 MG PO QHS, (Reported) Warfarin Sodium (Warfarin Sodium) 2.5 Mg Tablet, 2.5 MG PO QPM, (Reported) Scheduled PRN Linaclotide (Linzess) 72 Mcg Capsule, 72 MCG PO DAILY PRN for DIARRHEA, (Reported) Allergies Coded Allergies: Contrast Media (Verified Allergy, Severe, "convulse", 11/22/19) Quinolones (Verified Allergy, Intermediate, rash, swelling, 11/22/19) Sulfa (Sulfonamide Antibiotics) (Verified Allergy, Intermediate, rash, 11/22/19) ciprofloxacin (Verified Allergy, Intermediate, rash, 11/22/19) codeine (Verified Allergy, Intermediate, rash, 11/22/19) metoclopramide (Verified Allergy, Intermediate, rash, 11/22/19) morphine (Verified Allergy, Intermediate, rash, 11/22/19) prochlorperazine (Verified Allergy, Intermediate, rash, 11/22/19) DORIAN GALLEGOS D.O. December 15, 2019 11:51 CONOR ROSA MD December 17, 2019 19:50
--- NOTE | 2019-12-15 12:43 | REP ---
CT brain without contrast: History: Hit head. Rule out bleed. Patient on Coumadin. Comparison head CT study December 14, 2018. 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 Bone window settings demonstrate an intact bony calvarium. Visualized paranasal sinuses are clear. No intraorbital abnormality is seen. Vascular calcification is noted in the carotid siphons bilaterally as before. On soft tissue window settings, lateral, third, fourth ventricles are normal in size and position. There is no evidence of intracranial hemorrhage. No extra-axial fluid collection is seen. No mass or midline shift is seen. There is no evidence of infarction. Minimal small vessel changes are again seen in the periventricular white matter of the frontal lobes unchanged. Impression: Vascular calcification and mild small vessel changes. No skull fracture or intracranial injury. No acute intracranial abnormality. Electronically Signed by Edil Ortez MD 12/15/2019 12:35 P
[2019-12-15] MEDS ORDERED: WARFARIN SOD 2.5 MG TAB PO SCH (17:00)
== END 2019-12-15 15:10 | disposition home or self-care (01) | DRG 378 ==
LOC: EDBD 16:25 → M ED 16:25 → M ED INP 20:45 → ENRESERV 22:20 → M PCU 22:57 → M MS5PR 12-14 18:13
PROVIDERS: ADMIT Internal Medicine; ATTEND Internal Medicine
DX: K92.2 Gastrointestinal hemorrhage, unspecified (principal); D68.59 Other primary thrombophilia; D62 Acute posthemorrhagic anemia; Z86.718 Personal history of other venous thrombosis and embolism; E05.90 Thyrotoxicosis, unspecified without thyrotoxic crisis or storm; K21.9 Gastro-esophageal reflux disease without esophagitis; I10 Essential (primary) hypertension; H40.9 Unspecified glaucoma; F41.9 Anxiety disorder, unspecified; Z79.01 Long term (current) use of a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; Z79.82 Long term (current) use of aspirin; Z79.899 Other long term (current) drug therapy; Z88.1 Allergy status to other antibiotic agents; Z88.2 Allergy status to sulfonamides; Z88.5 Allergy status to narcotic agent; Z88.8 Allergy status to other drugs, medicaments and biological substances; Z91.041 Radiographic dye allergy status; Z87.891 Personal history of nicotine dependence

== ENCOUNTER → 2020-01-02 | Outpatient (CLI) | payer MEDICARE, OTHER ==
[~2020-01-02] MED LIST changes: +ASPI-161 PO; +ATOR40TA75 PO; +CLON1TAB8 PO; +LINZ72CA PO; +OMEP-218 PO; +POLYOPD OU; +TRAV04OPD OU; +TRAZ-252 PO; +VITAD1000T PO; +WARF-18 PO
[2020-01-02 09:59] LABS: BASO # 0.1 10^3/uL (0.0-0.2); BASO % 1.1 % (0.0-1.0); EOS # 0.2 10^3/uL (0.0-0.5); EOS % 3.1 % (0.0-3.0); HEMATOCRIT 36.4 % (36.0-47.0); HEMOGLOBIN 11.5 g/dl (12.0-15.5); LYMPH # 1.4 10^3/uL (1.5-5.0); LYMPH % 26.6 % (24.0-44.0); MEAN CORPUSCULAR HEMOGLOBIN 29.4 pg (27.0-33.0); MEAN CORPUSCULAR HGB CONC 31.6 g/dl (32.0-36.5); MEAN CORPUSCULAR VOLUME 93.1 fl (80.0-96.0); MONO # 0.4 10^3/uL (0.0-0.8); MONO % 7.1 % (0.0-5.0); NEUTROPHILS # 3.2 10^3/uL (1.5-8.5); NEUTROPHILS % 61.7 % (36.0-66.0); PLATELET COUNT, AUTOMATED 227 10^3/uL (150-450); RED BLOOD COUNT 3.91 10^6/uL (4.00-5.40); WHITE BLOOD COUNT 5.2 10^3/uL (4.0-10.0)
[2020-01-02 10:21] LABS: ALBUMIN 3.6 GM/DL (3.2-5.2); ALT/SGPT 24 U/L (12-78); BILIRUBIN,DIRECT 0.2 MG/DL (0.0-0.2); BILIRUBIN,TOTAL 0.7 MG/DL (0.2-1.0); BLOOD UREA NITROGEN 14 MG/DL (7-18); CALCIUM LEVEL 8.4 MG/DL (8.8-10.2); CARBON DIOXIDE LEVEL 27 MEQ/L (21-32); CHLORIDE LEVEL 108 MEQ/L (98-107); CREATININE FOR GFR 0.86 MG/DL (0.55-1.30); GLOMERULAR FILTRATION RATE > 60.0 (>39); GLUCOSE, FASTING 93 MG/DL (70-100); LIPASE 71 U/L (73-393); POTASSIUM SERUM 4.2 MEQ/L (3.5-5.1); SODIUM LEVEL 142 MEQ/L (136-145); TOTAL PROTEIN 6.9 GM/DL (6.4-8.2)
[2020-01-02 10:47] LABS: INR 2.63
== END ==
LOC: M WUC 08:44
PROVIDERS: ATTEND Physician Assistant
DX: K29.61 Other gastritis with bleeding (principal)

== ENCOUNTER → 2020-01-26 | Outpatient (CLI) | payer MEDICARE, OTHER | LOC: M WUC 10:37 | PROVIDERS: ATTEND Internal Medicine Endocrinology, Diabetes & Metabolism | DX: M81.0 Age-related osteoporosis without current pathological fracture (principal) ==

== ENCOUNTER → 2020-03-04 | Outpatient (REF) | payer MEDICARE, OTHER ==
[~2020-03-04] MED LIST changes: +D31000TA2 PO; +METO1TAB32 PO; -VITAD1000T PO
== END ==
LOC: M LAB REF 09:20
PROVIDERS: ATTEND Physician Assistant Medical
DX: Z11.59 Encounter for screening for other viral diseases (principal); Z20.828 Contact with and (suspected) exposure to other viral communicable diseases

== ENCOUNTER → 2020-03-21 | Outpatient (REF) | payer MEDICARE, OTHER | LOC: M LAB REF 17:05 | PROVIDERS: ATTEND Family Medicine | DX: N39.0 Urinary tract infection, site not specified (principal) ==

== ENCOUNTER 2020-04-02 16:35 | Emergency (ER) | payer MEDICARE, OTHER ==
[~2020-04-02 16:35] MED LIST changes: -METHACHOLINE KIT (J7674) INH ONE; -METO1TAB32 PO
[2020-04-02 17:13] LABS: BASO # 0.1 10^3/uL (0.0-0.2); BASO % 0.7 % (0.0-1.0); EOS # 0.1 10^3/uL (0.0-0.5); EOS % 0.6 % (0.0-3.0); HEMATOCRIT 38.9 % (36.0-47.0); HEMOGLOBIN 12.8 g/dl (12.0-15.5); LYMPH # 1.5 10^3/uL (1.5-5.0); MEAN CORPUSCULAR HGB CONC 32.9 g/dl (32.0-36.5); MEAN CORPUSCULAR VOLUME 91.1 fl (80.0-96.0); MONO # 0.5 10^3/uL (0.0-0.8); MONO % 6.2 % (0.0-5.0); NEUTROPHILS # 6.5 10^3/uL (1.5-8.5); NEUTROPHILS % 75.2 % (36.0-66.0); PLATELET COUNT, AUTOMATED 285 10^3/uL (150-450); RED BLOOD COUNT 4.27 10^6/uL (4.00-5.40); WHITE BLOOD COUNT 8.7 10^3/uL (4.0-10.0)
--- NOTE | 2020-04-02 17:13 | REPVR ---
PROCEDURE INFORMATION: Exam: XR Chest, 1 View Exam date and time: 04/02/2020 4:47 PM Age: 74 years old Clinical indication: Chest pain; Type not specified TECHNIQUE: Imaging protocol: XR of the chest Views: 1 view. COMPARISON: CR PORTABLE CHEST X-RAY 11/22/2019 10:27 AM FINDINGS: Lungs: Well inflated lungs consistent with COPD. Pleural space: Unremarkable. No pleural effusion. No pneumothorax. Heart/Mediastinum: Unremarkable. No cardiomegaly. Bones/joints: Osteoporosis. IMPRESSION: 1. COPD. 2. No acute infiltrates. Electronically signed by: Guillermo Robles On 04/02/2020 17:12:53 PM
[2020-04-02] MEDS: NITROGLYCERIN 0.4 MG SUBL TABLET SL PRN ×2 (17:18→17:29)
[2020-04-02 17:24] LABS: INR 1.8; PROTHROMBIN TIME 21.3 SECONDS (11.8-14.0)
[2020-04-02] MEDS ORDERED: GI COCKTAIL 50ML BTL(HYOSCYAMINE/MAALOX/LIDOCAINE VISCOUS)(1:3:1) PO ONE (17:30)
[2020-04-02 17:40] LABS: PARTIAL THROMBOPLASTIN TIME 28.7 SECONDS (25.0-38.4)
[2020-04-02] MEDS ORDERED: LABETALOL 100MG/20ML VIAL IV STA (17:40)
[2020-04-02 17:48] LABS: ALBUMIN 3.8 GM/DL (3.2-5.2); ALT/SGPT 25 U/L (12-78); BILIRUBIN,DIRECT < 0.1 MG/DL (0.0-0.2); BILIRUBIN,TOTAL 0.7 MG/DL (0.2-1.0); CK-MB VALUE MASS < 1.0 NG/ML (<3.6); CPK CREATINE PHOSPHOKINASE 140 U/L (26-192); LIPASE 30 U/L (73-393); MB/CK RELATIVE INDEX 0.71 (< OR =4); TOTAL PROTEIN 7.5 GM/DL (6.4-8.2); TROPONIN I < 0.02 NG/ML (< 0.10)
--- NOTE | 2020-04-02 18:29 | REPVR ---
PROCEDURE INFORMATION: Exam: CT Abdomen And Pelvis Without Contrast Exam date and time: 04/02/2020 5:48 PM Age: 74 years old Clinical indication: Abdominal pain; Additional info: [facility] TECHNIQUE: Imaging protocol: Computed tomography of the abdomen and pelvis without contrast. Radiation optimization: All CT scans at this facility use at least one of these dose optimization techniques: automated exposure control; mA and/or kV adjustment per patient size (includes targeted exams where dose is matched to clinical indication); or iterative reconstruction. COMPARISON: CT ABD PELVIS W/O CONTRAST 12/13/2019 5:08 PM FINDINGS: Tubes, catheters and devices: Tubular circular device surrounds the proximal stomach as noted previously. No interval change. Liver: Normal. No mass. Gallbladder and bile ducts: Normal. No calcified stones. No ductal dilation. Pancreas: Normal. No ductal dilation. Spleen: Normal. No splenomegaly. Adrenals: Normal. No mass. Kidneys and ureters: Redemonstration of multiple bilateral peripelvic renal cysts. Mild bilateral hydroureteronephrosis without obstructing etiology demonstrated. Stomach and bowel: Status post right hemicolectomy. Normal appearance of the anastomosis. Mild diverticulosis is present in the distal colon. No diverticulitis. Appendix: No evidence of appendicitis. Intraperitoneal space: Unremarkable. No free air. No significant fluid collection. Vasculature: The aortoiliac vessels demonstrate mild atherosclerotic calcification. Lymph nodes: Unremarkable. No enlarged lymph nodes. Bladder: Unremarkable as visualized. Reproductive: There has been a hysterectomy. Bones/joints: Unremarkable. No acute fracture. Soft tissues: Unremarkable. Other findings: Shallow levoscoliosis. IMPRESSION: 1. Tubular circular device surrounds the proximal stomach as noted previously. No interval change. 2. There has been a hysterectomy. 3. Status post right hemicolectomy. Normal appearance of the anastomosis. 4. Mild diverticulosis is present in the distal colon. No diverticulitis. 5. No acute findings. Electronically signed by: Guillermo Robles On 04/02/2020 18:28:44 PM
--- NOTE | 2020-04-02 18:32 | REPVR ---
PROCEDURE INFORMATION: Exam: CT Chest Without Contrast Exam date and time: 04/02/2020 5:48 PM Age: 74 years old Clinical indication: Chest pain; Additional info: Severe cp, cannot get iv constrast TECHNIQUE: Imaging protocol: Computed tomography of the chest without contrast. Radiation optimization: All CT scans at this facility use at least one of these dose optimization techniques: automated exposure control; mA and/or kV adjustment per patient size (includes targeted exams where dose is matched to clinical indication); or iterative reconstruction. COMPARISON: CT Chest without contrast 12/28/2016 4:16 PM FINDINGS: Lungs: Bilateral apical pleuroparenchymal scarring. Calcifications tracheobronchial tree. Lungs otherwise clear. Pleural space: Unremarkable. No pneumothorax. No pleural effusion. Heart: There is mild atherosclerotic calcification of the coronary arteries. Aorta: Unremarkable. No aortic aneurysm. Lymph nodes: Unremarkable. No enlarged lymph nodes. Bones/joints: Shallow dextroscoliosis. Otherwise unremarkable. No acute fracture. Soft tissues: Unremarkable. IMPRESSION: No acute findings. Electronically signed by: Guillermo Robles On 04/02/2020 18:32:05 PM
[2020-04-02] MEDS ORDERED: METO1TAB32 PO (18:58)
[2020-04-02] MEDS ORDERED: METOPROLOL SUCC (TopROL XL) 50MG **XL** TAB PO ONE (19:00)
[2020-04-02 19:39] VITALS: BP 122/57
[2020-04-02] MEDS ORDERED: traMADol 50 MG TAB PO ONE (20:15)
[2020-04-02] MEDS ORDERED: PILL CUTTER 1 EACH XX ONE (21:14)
[2020-04-02 22:30] VITALS: BP 118/55
--- NOTE | 2020-04-10 11:30 | ECGEPIP ---
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
== END 2020-04-02 23:48 | disposition home or self-care (01) ==
LOC: M ED 16:35
DX: I10 Essential (primary) hypertension (principal); E78.5 Hyperlipidemia, unspecified; F33.9 Major depressive disorder, recurrent, unspecified; F41.9 Anxiety disorder, unspecified; Z79.899 Other long term (current) drug therapy; Z79.82 Long term (current) use of aspirin; Z79.01 Long term (current) use of a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; Z88.1 Allergy status to other antibiotic agents; Z88.2 Allergy status to sulfonamides; Z88.5 Allergy status to narcotic agent; Z88.8 Allergy status to other drugs, medicaments and biological substances; Z91.041 Radiographic dye allergy status
CPT/HCPCS: 71045; 71250; 74176; 80076; 81001; 82550; 82553; 83690; 84484; 85025; 85610; 85730; 88738; 93005; 93041; 94010; 94070; 94726; 94729; 95070; 96374; 99284; J7674

== ENCOUNTER → 2020-04-02 | Outpatient (CLI) | payer MEDICARE, OTHER ==
[~2020-04-02] MED LIST changes: +METHACHOLINE KIT (J7674) INH ONE
--- NOTE | 2020-04-11 11:51 | PFTRPT ---
Height: 64.00 Inches Weight: 150.00 Lbs BSA: 1.73 Diagnosis: R06.02 DATE OF STUDY: 04/02/2020 ORDERED BY: Jamie Mark M.D. QUALITY: Study of excellent technical quality. PROCEDURE: Under protocol, methacholine was administered. Even after a maximum dose of 25 mg or 188.875 CDUs, no provocation dose was ever achieved. Flow rates did return to baseline post-bronchodilator administration. IMPRESSION: Negative methacholine challenge study. MTDD
--- NOTE | 2020-04-11 11:51 | PFTRPT ---
Height: 64.00 Inches Weight: 150.00 Lbs BSA: 1.73 Diagnosis: R05 DATE OF STUDY: 04/02/2020 ORDERED BY: Dr. Mark Excellent technical quality. Forced vital capacity normal. FEV-1 is in proportion with adequate exchange normal. Expiratory flow volume loop is normal. Total lung capacity normal. Residual volume proportionate. Diffusion capacity is normal. Hemoglobin mildly reduced at 11.2. Airway resistance and conductance are normal. IMPRESSION: Other than mild anemia, otherwise normal test. MTDD
== END ==
LOC: M CARPUL 09:53
PROVIDERS: ATTEND Internal Medicine Pulmonary Disease
DX: R06.02 Shortness of breath (principal); R05 Cough

== ENCOUNTER → 2020-05-08 | Outpatient (CLI) | payer MEDICARE, OTHER ==
[~2020-05-08] MED LIST changes: +METO1TAB32 PO
--- NOTE | 2020-05-13 11:05 | REP ---
HISTORY: Right upper quadrant pain. History of hiatal hernia repair. Constipation and acholic stool. COMPARISON: Right upper quadrant sonography from 10/20/2017. CT study abdomen and pelvis 04/02/2020. SONOGRAPHIC FINDINGS: Scanning through the right upper quadrant of the abdomen demonstrates a normal size thin walled gallbladder without evidence of stone. There is a 0.4 cm non- shadowing focus on the dependent wall of the gallbladder consistent with a polyp. Common bile duct is normal measuring 0.4 cm in diameter. No focal liver lesion is seen. Pancreas is unremarkable. No right renal abnormality is seen. The right kidney measures 9.9 x 5.8 x 3.9 cm. There is no visible ascites. Images demonstrate an arc shaped tubular structure in the epigastric region 2.9 cm in diameter, which is felt to correspond to the patients Angelchik antireflux device seen in the left upper quadrant on CT study. Apparently, the patient expressed tenderness to scanning similar to her pain with scanning over this region. IMPRESSION: Small 4-mm polyp in the gallbladder. Angelchik antireflux device noted in the epigastrium. Scanning over this reproduces the patients pain. Otherwise negative right upper quadrant sonography. [facility]
== END ==
LOC: M RAD 07:42
PROVIDERS: ATTEND Internal Medicine Gastroenterology
DX: R05 Cough (principal); R49.8 Other voice and resonance disorders; R07.9 Chest pain, unspecified; R19.5 Other fecal abnormalities

== ENCOUNTER → 2020-05-15 | Outpatient (REF) | payer MEDICARE, OTHER ==
[2020-05-15 17:17] LABS: APPEARANCE, URINE CLEAR (CLEAR); BACTERIA, URINE AUTO NEGATIVE (NEGATIVE); BILIRUBIN, URINE AUTO NEGATIVE (NEGATIVE); BLOOD, URINE BLOOD NEGATIVE (NEGATIVE); COLOR, URINE YELLOW (YELLOW); GLUCOSE, URINE (UA) AUTO NEGATIVE (NEGATIVE); KETONE, URINE AUTO NEGATIVE (NEGATIVE); LEUKOCYTE ESTERASE, URINE AUTO NEGATIVE (NEGATIVE); MUCUS, URINE SMALL (NEGATIVE); NITRITE, URINE AUTO NEGATIVE (NEGATIVE); PROTEIN, URINE AUTO NEGATIVE (NEGATIVE); RBC, URINE AUTO 2 /HPF (0-3); SPECIFIC GRAVITY URINE AUTO 1.013 (1.002-1.035); SQUAMOUS EPITHELIAL CELL UR AU 1 /HPF (0-6); UROBILINOGEN, URINE AUTO 0.2 mg/dL (0.0-2.0); WBC, URINE AUTO 1 /HPF (0-3)
== END ==
LOC: M LAB REF 16:32
PROVIDERS: ATTEND Obstetrics & Gynecology
DX: N64.4 Mastodynia (principal)

== ENCOUNTER → 2020-06-04 | Outpatient (REF) | payer MEDICARE, OTHER ==
[2020-06-05 11:33] LABS: APPEARANCE, URINE CLEAR (CLEAR); BACTERIA, URINE AUTO NEGATIVE (NEGATIVE); BILIRUBIN, URINE AUTO NEGATIVE (NEGATIVE); BLOOD, URINE BLOOD 1+ (NEGATIVE); COLOR, URINE YELLOW (YELLOW); GLUCOSE, URINE (UA) AUTO 1+ mg/dL (NEGATIVE); KETONE, URINE AUTO NEGATIVE (NEGATIVE); LEUKOCYTE ESTERASE, URINE AUTO NEGATIVE (NEGATIVE); MUCUS, URINE SMALL (NEGATIVE); NITRITE, URINE AUTO NEGATIVE (NEGATIVE); PROTEIN, URINE AUTO NEGATIVE (NEGATIVE); RBC, URINE AUTO 2 /HPF (0-3); SPECIFIC GRAVITY URINE AUTO 1.018 (1.002-1.035); SQUAMOUS EPITHELIAL CELL UR AU 2 /HPF (0-6); UROBILINOGEN, URINE AUTO 0.2 mg/dL (0.0-2.0); WBC, URINE AUTO 1 /HPF (0-3)
== END ==
LOC: M LAB REF 10:20
PROVIDERS: ATTEND Obstetrics & Gynecology
DX: R39.14 Feeling of incomplete bladder emptying (principal); N39.41 Urge incontinence

== ENCOUNTER → 2020-07-08 | Outpatient (REF) | payer MEDICARE, OTHER | LOC: M LAB REF 18:21 | PROVIDERS: ATTEND Physician Assistant | DX: J06.9 Acute upper respiratory infection, unspecified (principal) ==

== ENCOUNTER → 2020-08-01 | Outpatient (CLI) | payer MEDICARE, OTHER ==
[2020-08-01 16:49] LABS: THYROID STIMULATING HORMONE 2.06 uIU/ML (0.358-3.740)
[2020-08-01 18:04] LABS: TOTAL 25(OH) VITAMIN D 74.3 NG/ML (30.0-100.0)
== END ==
LOC: M WUC 11:15
PROVIDERS: ATTEND Internal Medicine Endocrinology, Diabetes & Metabolism
DX: E05.90 Thyrotoxicosis, unspecified without thyrotoxic crisis or storm (principal); E55.9 Vitamin D deficiency, unspecified; Z79.899 Other long term (current) drug therapy

== ENCOUNTER → 2020-08-01 | Outpatient (CLI) | payer MEDICARE, OTHER ==
--- NOTE | 2020-08-01 11:42 | REP ---
INDICATION: PAIN COMPARISON: None. TECHNIQUE: AP, lateral, bilateral oblique views of the left elbow. FINDINGS: No acute fracture or dislocation is appreciated. Joint spaces and surrounding soft tissues appear normal for age. Lateral view demonstrates normal positioning to the anterior and posterior fat pads without evidence for effusion/hemarthrosis. No subcutaneous emphysema or foreign body identified. IMPRESSION: age-appropriate elbow radiographs. No acute fracture or dislocation. <Electronically signed by Tae Qiu > 08/01/20 [id number]
== END ==
LOC: M WUC 11:18
PROVIDERS: ATTEND Physician Assistant
DX: M25.522 Pain in left elbow (principal); E05.90 Thyrotoxicosis, unspecified without thyrotoxic crisis or storm; E55.9 Vitamin D deficiency, unspecified; Z79.899 Other long term (current) drug therapy

== ENCOUNTER 2020-10-09 16:30 | Emergency (ER) | payer MEDICARE, OTHER ==
[2020-10-09 17:27] LABS: VENOUS BASE EXCESS 3.2 (-2.0-2.0); VENOUS HCO3 29.2 MEQ/L (23.0-27.0); VENOUS O2 SATURATION 71.8 % (60.0-80.0); VENOUS PARTIAL PRESSURE CO2 49.8 mmHg (38.0-50.0); VENOUS PARTIAL PRESSURE O2 38.2 mmHg (30.0-50.0); VENOUS PH 7.386 UNITS (7.330-7.430); VENOUS STANDARD HCO3 26.7 MEQ/L; VENOUS TOTAL CO2 30.7 MEQ/L (24.0-28.0)
[2020-10-09 17:34] LABS: BASO % 0.4 % (0.0-1.0); EOS # 0.2 10^3/uL (0.0-0.5); EOS % 2.5 % (0.0-3.0); HEMATOCRIT 41.5 % (36.0-47.0); HEMOGLOBIN 13.5 g/dl (12.0-15.5); LYMPH # 1.6 10^3/uL (1.5-5.0); LYMPH % 20.9 % (24.0-44.0); MEAN CORPUSCULAR HEMOGLOBIN 28.6 pg (27.0-33.0); MEAN CORPUSCULAR HGB CONC 32.5 g/dl (32.0-36.5); MEAN CORPUSCULAR VOLUME 87.9 fl (80.0-96.0); MONO # 0.6 10^3/uL (0.0-0.8); MONO % 8.2 % (2.0-8.0); NEUTROPHILS # 5.1 10^3/uL (1.5-8.5); NEUTROPHILS % 67.6 % (36.0-66.0); PLATELET COUNT, AUTOMATED 233 10^3/uL (150-450); RED BLOOD COUNT 4.72 10^6/uL (4.00-5.40); WHITE BLOOD COUNT 7.5 10^3/uL (4.0-10.0)
[2020-10-09 17:45] LABS: INR 2.67
--- NOTE | 2020-10-09 17:45 | REP ---
INDICATION: DYSPNEA/COUGH +covid. COMPARISON: Comparison chest x-ray April 02, 2020. TECHNIQUE: Portable upright AP chest radiograph. FINDINGS: The lungs are well inflated and free of infiltrate. Pleural angles are sharp. Heart size is normal. Pulmonary vasculature is not increased. EKG monitoring electrodes are seen. IMPRESSION: No active disease. No infiltrate seen.. <Electronically signed by Agustin Ortez > 10/09/20 [id number]
[2020-10-09] MEDS ORDERED: DIVA250T67 (17:51)
[2020-10-09] MEDS ORDERED: PANT40TA29 PO (17:51)
[2020-10-09] MEDS ORDERED: BENZ-18 PO (17:51)
[2020-10-09] MEDS ORDERED: LEVA45AE PO (17:51)
[2020-10-09] MEDS ORDERED: TRAM50TA2 PO (17:51)
[2020-10-09] MEDS ORDERED: QC A650T3 PO (17:51)
[2020-10-09] MEDS ORDERED: RIZA10TA58 SL (17:51)
[2020-10-09] MEDS ORDERED: SUMA100T2 PO (17:51)
[2020-10-09] MEDS ORDERED: FLUTISP PO (17:51)
[2020-10-09] MEDS ORDERED: MONT10TA10 PO (17:51)
[2020-10-09 17:56] LABS: ERYTHROCYTE SEDIMENTATION RATE 35 mm/hr (0-30)
[2020-10-09 18:08] LABS: ALBUMIN 4.1 GM/DL (3.2-5.2); ALT/SGPT 24 U/L (12-78); BILIRUBIN,DIRECT 0.2 MG/DL (0.0-0.2); BILIRUBIN,TOTAL 0.5 MG/DL (0.2-1.0); BLOOD UREA NITROGEN 21 MG/DL (7-18); CALCIUM LEVEL 9.3 MG/DL (8.8-10.2); CARBON DIOXIDE LEVEL 31 MEQ/L (21-32); CHLORIDE LEVEL 103 MEQ/L (98-107); CK-MB VALUE MASS < 1.0 NG/ML (<3.6); CPK CREATINE PHOSPHOKINASE 53 U/L (26-192); FERRITIN 38 NG/ML (8-252); GLOMERULAR FILTRATION RATE 42.6 (>39); GLUCOSE, FASTING 110 MG/DL (70-100); LDH LACTATE DEHYDROGENASE 184 U/L (84-246); MB/CK RELATIVE INDEX 1.89 (< OR =4); NT-PRO BNP 58 PG/ML (<125); POTASSIUM SERUM 4.1 MEQ/L (3.5-5.1); SODIUM LEVEL 138 MEQ/L (136-145); THYROXINE (T4) 10.2 UG/DL (4.5-12.0); TOTAL PROTEIN 7.7 GM/DL (6.4-8.2); TROPONIN I < 0.02 NG/ML (< 0.10)
[2020-10-09 18:27] LABS: D-DIMER QUANT < 270.0 ng/ml (<500)
[2020-10-09 19:02] VITALS: BP 168/89
--- NOTE | 2020-10-10 03:31 | ECGEPIP ---
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
== END 2020-10-09 19:23 | disposition home or self-care (01) ==
LOC: M ED 16:30
DX: U07.1 COVID-19 (principal); K21.9 Gastro-esophageal reflux disease without esophagitis; I10 Essential (primary) hypertension; Z79.82 Long term (current) use of aspirin; Z79.899 Other long term (current) drug therapy; Z79.01 Long term (current) use of a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; Z88.6 Allergy status to analgesic agent; Z87.891 Personal history of nicotine dependence; Z88.1 Allergy status to other antibiotic agents; Z88.2 Allergy status to sulfonamides; Z88.8 Allergy status to other drugs, medicaments and biological substances; Z91.041 Radiographic dye allergy status

== ENCOUNTER → 2020-10-14 | Outpatient (CLI) | payer MEDICARE, OTHER ==
[~2020-10-14] MED LIST changes: +BENZ-18 PO; +DIVA250T67; +FLUTISP PO; +LEVA45AE PO; +MONT10TA10 PO; +PANT40TA29 PO; +QC A650T3 PO; +RIZA10TA58 SL; +SUMA100T2 PO; +TRAM50TA2 PO
--- NOTE | 2020-10-14 15:20 | REP ---
INDICATION: COVID-19, MEET PT AT [facility]. COMPARISON: Comparison chest x-ray October 09, 2020. TECHNIQUE: Two views.. FINDINGS: The lungs are well inflated and free of infiltrate. The pleural angles are sharp. The heart size is normal. Pulmonary vasculature is not increased. No significant bony abnormality is seen. A lap band device is visible in the left upper quadrant of the abdomen. IMPRESSION: No active disease. No infiltrate seen.. <Electronically signed by Agustin Ortez > 10/14/20 [id number]
== END ==
LOC: M RAD 14:24
PROVIDERS: ATTEND Nurse Practitioner Family
DX: U07.1 COVID-19 (principal)

== ENCOUNTER → 2020-11-04 | Outpatient (CLI) | payer MEDICARE, OTHER ==
[2020-11-04 07:34] LABS: HEMATOCRIT 38.9 % (36.0-47.0); HEMOGLOBIN 12.2 g/dl (12.0-15.5); MEAN CORPUSCULAR HEMOGLOBIN 28.8 pg (27.0-33.0); MEAN CORPUSCULAR HGB CONC 31.4 g/dl (32.0-36.5); MEAN CORPUSCULAR VOLUME 91.7 fl (80.0-96.0); PLATELET COUNT, AUTOMATED 287 10^3/uL (150-450); RED BLOOD COUNT 4.24 10^6/uL (4.00-5.40); WHITE BLOOD COUNT 11.2 10^3/uL (4.0-10.0)
--- NOTE | 2020-11-04 07:36 | REP ---
INDICATION: HTN- LABS AND EKG FIRST. COMPARISON: PA and lateral chest dated 10/14/2020. TECHNIQUE: Upright PA and lateral chest. FINDINGS: The lung oh are clear. Cardiac size is normal. The elida, mediastinum and skeletal structures are unremarkable. There is an Angelchick anti gastroesophageal reflux prosthesis beneath the left hemidiaphragm, unchanged. IMPRESSION: Essentially negative PA and lateral chest There is no interval change. <Electronically signed by Jonathan Cuba > 11/04/20 [id number]
[2020-11-04 07:44] LABS: INR 1.38; PROTHROMBIN TIME 17.3 SECONDS (12.5-14.3)
[2020-11-04 08:06] LABS: ALBUMIN 3.5 GM/DL (3.2-5.2); ALT/SGPT 26 U/L (12-78); BILIRUBIN,TOTAL 0.4 MG/DL (0.2-1.0); BLOOD UREA NITROGEN 26 MG/DL (7-18); CALCIUM LEVEL 8.8 MG/DL (8.8-10.2); CARBON DIOXIDE LEVEL 30 MEQ/L (21-32); CHLORIDE LEVEL 105 MEQ/L (98-107); CHOLESTEROL LEVEL 175 MG/DL (<200); CHOLESTEROL RISK RATIO 3.723 (<5); CREATININE FOR GFR 0.81 MG/DL (0.55-1.30); GLOMERULAR FILTRATION RATE > 60.0 (>39); GLUCOSE, FASTING 98 MG/DL (70-100); HDL CHOLESTEROL 47 MG/DL (>40); LDL CHOLESTEROL 73 MG/DL (<100); NON-HDL-C 128 MG/DL; POTASSIUM SERUM 4.1 MEQ/L (3.5-5.1); SODIUM LEVEL 140 MEQ/L (136-145); TOTAL PROTEIN 6.8 GM/DL (6.4-8.2); TRIGLYCERIDES LEVEL 277 MG/DL (<150)
[2020-11-04 08:25] LABS: HEMOGLOBIN A1c 5.9 %
--- NOTE | 2020-11-04 10:48 | ECGEPIP ---
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 Nonspecific ST abnormalities Subtle change in precordial lead placement from 10/09/20. Electronically Signed on 11-04-2020 10:48:13 EDT by Timoteo Kim
[2020-11-04 12:00] LABS: TOTAL 25(OH) VITAMIN D 67.4 NG/ML (30.0-100.0)
== END ==
LOC: M LAB 06:06
PROVIDERS: ATTEND Family Medicine
DX: J44.9 Chronic obstructive pulmonary disease, unspecified (principal); I10 Essential (primary) hypertension; R53.83 Other fatigue; Z79.899 Other long term (current) drug therapy; Z79.01 Long term (current) use of a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

== ENCOUNTER → 2020-11-25 | Outpatient (CLI) | payer MEDICARE, OTHER ==
[2020-11-25 19:52] LABS: HEMATOCRIT 38.7 % (36.0-47.0); MEAN CORPUSCULAR HEMOGLOBIN 28.5 pg (27.0-33.0); MEAN CORPUSCULAR VOLUME 91.9 fl (80.0-96.0); PLATELET COUNT, AUTOMATED 285 10^3/uL (150-450); RED BLOOD COUNT 4.21 10^6/uL (4.00-5.40); WHITE BLOOD COUNT 5.9 10^3/uL (4.0-10.0)
[2020-11-25 20:10] LABS: HEMOGLOBIN A1c 5.5 %
[2020-11-25 21:52] LABS: ALBUMIN 3.7 GM/DL (3.2-5.2); ALT/SGPT 28 U/L (12-78); BILIRUBIN,TOTAL 0.7 MG/DL (0.2-1.0); BLOOD UREA NITROGEN 22 MG/DL (7-18); CALCIUM LEVEL 9.1 MG/DL (8.8-10.2); CARBON DIOXIDE LEVEL 27 MEQ/L (21-32); CHLORIDE LEVEL 105 MEQ/L (98-107); CHOLESTEROL LEVEL 196 MG/DL (<200); CHOLESTEROL RISK RATIO 2.882 (<5); CREATININE FOR GFR 0.87 MG/DL (0.55-1.30); GLOMERULAR FILTRATION RATE > 60.0 (>39); GLUCOSE, FASTING 104 MG/DL (70-100); HDL CHOLESTEROL 68 MG/DL (>40); LDL CHOLESTEROL 101 MG/DL (<100); NON-HDL-C 128 MG/DL; SODIUM LEVEL 141 MEQ/L (136-145); TOTAL PROTEIN 7.4 GM/DL (6.4-8.2); TRIGLYCERIDES LEVEL 133 MG/DL (<150)
[2020-11-26 09:37] LABS: TOTAL 25(OH) VITAMIN D 75.6 NG/ML (30.0-100.0)
== END ==
LOC: M WUC 14:10
PROVIDERS: ATTEND Family Medicine
DX: I10 Essential (primary) hypertension (principal); R53.83 Other fatigue; D64.9 Anemia, unspecified

== ENCOUNTER → 2020-11-25 | Outpatient (CLI) | payer MEDICARE, OTHER ==
[2020-11-25 16:46] LABS: HEMOGLOBIN A1c 6.2 %
[2020-11-25 16:52] LABS: FREE T4 0.83 NG/DL (0.76-1.46); FREE THYROXINE INDEX 2.1 % (1.3-4.8); RHEUMATOID FACTOR QUANT < 10.0 IU/ML (<15.0); T UPTAKE 34 % (30-39); THYROXINE (T4) 6.3 UG/DL (4.5-12.0); TOTAL PROTEIN 7.4 GM/DL (6.4-8.2)
[2020-11-25 16:53] LABS: VITAMIN B12 LEVEL 445 PG/ML
[2020-11-25 16:54] LABS: FOLATE 7.3 NG/ML
[2020-11-27 10:15] LABS: ALBUMIN 4.24 GM/DL (3.29-5.55); ALBUMIN % 57.3 % (55.8-66.1); ALPHA-1-GLOBULIN % 4.6 % (2.9-4.9); ALPHA-2-GLOBULINS % 11.8 % (7.1-11.8); BETA-1-GLOBULINS % 5.7 % (4.7-7.2); BETA-2-GLOBULINS % 5.5 % (3.2-6.5); GAMMA GLOBULIN % 15.1 % (11.1-18.8)
[2020-11-27 10:16] LABS: ALPHA-1-GLOBULINS 0.34 GM/DL (0.17-0.41); ALPHA-2-GLOBULINS 0.87 GM/DL (0.42-0.99); BETA-1-GLOBULINS 0.42 GM/DL (0.28-0.60); BETA-2-GLOBULINS 0.41 GM/DL (0.19-0.55); GAMMA GLOBULINS 1.12 GM/DL (0.65-1.58)
[2020-11-27 10:58] LABS: DRVV SCREEN 43.1 SEC
[2020-11-27 11:03] LABS: PTT LUPUS TYPE ANTICOAG SCREEN 1.1 (0-1.2)
== END ==
LOC: M WUC 12:03
PROVIDERS: ATTEND Psychiatry & Neurology Neurology
DX: G62.9 Polyneuropathy, unspecified (principal); E07.9 Disorder of thyroid, unspecified; E78.00 Pure hypercholesterolemia, unspecified; I10 Essential (primary) hypertension; R53.83 Other fatigue; D64.9 Anemia, unspecified; Z79.899 Other long term (current) drug therapy

== ENCOUNTER 2020-11-30 17:05 | Emergency (ER) | payer MEDICARE, OTHER ==
[~2020-11-30] VITALS: Ht 162.6 cm; Wt 63.6 kg
[2020-11-30 18:07] LABS: BASO # 0.1 10^3/uL (0.0-0.2); EOS # 0.2 10^3/uL (0.0-0.5); EOS % 3.6 % (0.0-3.0); HEMOGLOBIN 12.5 g/dl (12.0-15.5); LYMPH # 1.5 10^3/uL (1.5-5.0); LYMPH % 24.5 % (24.0-44.0); MEAN CORPUSCULAR HEMOGLOBIN 28.4 pg (27.0-33.0); MEAN CORPUSCULAR HGB CONC 31.3 g/dl (32.0-36.5); MEAN CORPUSCULAR VOLUME 90.9 fl (80.0-96.0); MONO # 0.7 10^3/uL (0.0-0.8); MONO % 11.4 % (2.0-8.0); NEUTROPHILS # 3.6 10^3/uL (1.5-8.5); NEUTROPHILS % 59.2 % (36.0-66.0); PLATELET COUNT, AUTOMATED 287 10^3/uL (150-450)
--- NOTE | 2020-11-30 18:15 | REPVR ---
PROCEDURE INFORMATION: Exam: XR Chest Exam date and time: 11/30/2020 5:57 PM Age: 75 years old Clinical indication: Chest pain TECHNIQUE: Imaging protocol: XR of the chest. Views: 1 view. COMPARISON: CA PORTABLE CHEST X-RAY 10/09/2020 5:28 PM FINDINGS: Lungs: Unremarkable. No consolidation. Pleural spaces: Unremarkable. No pleural effusion. No pneumothorax. Heart/Mediastinum: Unremarkable. No cardiomegaly. Bones/joints: Shallow dextroscoliosis. IMPRESSION: No acute findings. Electronically signed by: Guillermo Robles On 11/30/2020 18:15:17 PM
--- NOTE | 2020-11-30 18:16 | REPVR ---
PROCEDURE INFORMATION: Exam: US Duplex Lower Extremity Veins, Bilateral Exam date and time: 11/30/2020 6:11 PM Age: 75 years old Clinical indication: Pain; Chest; Additional info: Chest pain, iv contrast allerg RO dvt TECHNIQUE: Imaging protocol: Real-time duplex ultrasound of the extremities with 2-D garvin scale, color Doppler flow and spectral waveform analysis with image documentation. Complete exam focused on the bilateral lower extremity veins. COMPARISON: US Duplex, Ext LOWER veins, bilat BILATERAL 01/07/2018 3:27 PM FINDINGS: Right deep veins: Unremarkable. The common femoral, femoral, proximal profunda femoral and popliteal veins are patent without thrombus. Normal Doppler waveforms. Normal compressibility and/or augmentation response. Right superficial veins: Saphenofemoral junction is patent without thrombus. Left deep veins: Unremarkable. The common femoral, femoral, proximal profunda femoral and popliteal veins are patent without thrombus. Normal Doppler waveforms. Normal compressibility and/or augmentation response. Left superficial veins: Saphenofemoral junction is patent without thrombus. Soft tissues: Unremarkable. IMPRESSION: No evidence of deep vein thrombosis. Electronically signed by: Guillermo Robles On 11/30/2020 18:15:45 PM
[2020-11-30 18:18] LABS: INR 1.93; PARTIAL THROMBOPLASTIN TIME 35.3 SECONDS (24.2-38.5); PROTHROMBIN TIME 22.5 SECONDS (12.5-14.3)
[2020-11-30 18:30] LABS: D-DIMER QUANT < 270 ng/ml (<500)
[2020-11-30 18:49] LABS: ALBUMIN 3.7 GM/DL (3.2-5.2); ALT/SGPT 28 U/L (12-78); BILIRUBIN,DIRECT 0.2 MG/DL (0.0-0.2); BILIRUBIN,TOTAL 0.8 MG/DL (0.2-1.0); CK-MB VALUE MASS < 1.0 NG/ML (<3.6); CPK CREATINE PHOSPHOKINASE 52 U/L (26-192); FREE T4 0.86 NG/DL (0.76-1.46); LIPASE 47 U/L (73-393); MB/CK RELATIVE INDEX 1.92 (< OR =4); NT-PRO BNP 207 PG/ML (<450); TOTAL PROTEIN 7.5 GM/DL (6.4-8.2); TROPONIN I < 0.02 NG/ML (< 0.10)
[2020-11-30 19:15] VITALS: BP 165/70
--- NOTE | 2020-11-30 19:26 | ECGEPIP ---
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
== END 2020-11-30 19:42 | disposition home or self-care (01) ==
LOC: M ED 17:05
DX: R07.9 Chest pain, unspecified (principal); R06.00 Dyspnea, unspecified; Z86.16 Personal history of COVID-19; I10 Essential (primary) hypertension; F41.9 Anxiety disorder, unspecified; F32.9 Major depressive disorder, single episode, unspecified; Z86.718 Personal history of other venous thrombosis and embolism; Z86.711 Personal history of pulmonary embolism; Z87.891 Personal history of nicotine dependence; Z79.82 Long term (current) use of aspirin; Z79.01 Long term (current) use of a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; Z79.899 Other long term (current) drug therapy; Z91.041 Radiographic dye allergy status; Z88.8 Allergy status to other drugs, medicaments and biological substances; Z88.2 Allergy status to sulfonamides; Z88.1 Allergy status to other antibiotic agents; Z88.5 Allergy status to narcotic agent; Z91.89 Other specified personal risk factors, not elsewhere classified

== ENCOUNTER → 2020-12-06 | Outpatient (CLI) | payer MEDICARE, OTHER ==
[2020-12-06 11:10] LABS: BASO # 0.1 10^3/uL (0.0-0.2); BASO % 0.8 % (0.0-1.0); EOS # 0.2 10^3/uL (0.0-0.5); EOS % 2.9 % (0.0-3.0); HEMATOCRIT 39.4 % (36.0-47.0); HEMOGLOBIN 12.5 g/dl (12.0-15.5); LYMPH # 1.4 10^3/uL (1.5-5.0); LYMPH % 21.8 % (24.0-44.0); MEAN CORPUSCULAR HEMOGLOBIN 29.3 pg (27.0-33.0); MEAN CORPUSCULAR HGB CONC 31.7 g/dl (32.0-36.5); MEAN CORPUSCULAR VOLUME 92.3 fl (80.0-96.0); MONO # 0.4 10^3/uL (0.0-0.8); MONO % 7.1 % (2.0-8.0); NEUTROPHILS # 4.2 10^3/uL (1.5-8.5); NEUTROPHILS % 67.1 % (36.0-66.0); PLATELET COUNT, AUTOMATED 270 10^3/uL (150-450); RED BLOOD COUNT 4.27 10^6/uL (4.00-5.40); WHITE BLOOD COUNT 6.2 10^3/uL (4.0-10.0)
[2020-12-06 11:39] LABS: ERYTHROCYTE SEDIMENTATION RATE 33 mm/hr (0-30)
[2020-12-06 11:40] LABS: HEMOGLOBIN A1c 5.5 %
[2020-12-06 11:48] LABS: ALBUMIN 3.8 GM/DL (3.2-5.2); ALT/SGPT 26 U/L (12-78); BILIRUBIN,TOTAL 0.8 MG/DL (0.2-1.0); BLOOD UREA NITROGEN 21 MG/DL (7-18); CALCIUM LEVEL 9.5 MG/DL (8.8-10.2); CARBON DIOXIDE LEVEL 29 MEQ/L (21-32); CHLORIDE LEVEL 107 MEQ/L (98-107); CPK CREATINE PHOSPHOKINASE 55 U/L (26-192); CREATININE FOR GFR 0.94 MG/DL (0.55-1.30); GLOMERULAR FILTRATION RATE > 60.0 (>39); GLUCOSE, FASTING 98 MG/DL (70-100); POTASSIUM SERUM 4.4 MEQ/L (3.5-5.1); SODIUM LEVEL 140 MEQ/L (136-145); TOTAL PROTEIN 7.3 GM/DL (6.4-8.2)
== END ==
LOC: M WUC 12-05 08:43
PROVIDERS: ATTEND Physician Assistant
DX: G93.3 Postviral and related fatigue syndromes (principal); R73.01 Impaired fasting glucose

== ENCOUNTER → 2020-12-12 | Outpatient (REF) | payer MEDICARE, OTHER | LOC: M LAB REF 19:42 | PROVIDERS: ATTEND Physician Assistant | DX: R50.9 Fever, unspecified (principal); R05 Cough ==

== ENCOUNTER 2020-12-15 14:34 | Observation (INO) | payer MEDICARE, OTHER ==
[~2020-12-15] VITALS: Ht 162.6 cm; Wt 69.4 kg
[2020-12-15] MEDS ORDERED: COMBIVENT RESPIMAT 100-20MCG INHALER 4GM INH ONE (15:25)
[2020-12-15] MEDS ORDERED: methylPREDNISolone 125MG 2ML VIAL IV ONE (15:25)
--- NOTE | 2020-12-15 16:03 | REP ---
INDICATION: SOB. COMPARISON: 11/30/2020. TECHNIQUE: Single portable AP view of the chest was performed. FINDINGS: There is no acute infiltrate or pulmonary edema. Lungs are clear. The heart is not significantly enlarged. The mediastinal silhouette is unremarkable except for mild calcification of the thoracic aorta. The visualized osseous structures are intact. IMPRESSION: No acute pulmonary disease. <Electronically signed by Jonathan Duque > 12/15/20 1600
[2020-12-15 16:08] LABS: ABG BASE EXCESS 1.1 (-2.0-2.0); ABG O2 SATURATION 99.5 % (95.0-99.0); ABG PARTIAL PRESSURE CO2 36.9 mmHg (35.0-45.0); ABG PARTIAL PRESSURE O2 211.4 mmHg (75.0-100.0); ABG STANDARD HCO3 25.5 MEQ/L (22.0-26.0); ABG TOTAL CO2 26.1 MEQ/L (23.0-31.0); ABG pH (ARTERIAL) 7.448 UNITS (7.350-7.450)
[2020-12-15 17:35] LABS: BASO # 0.1 10^3/uL (0.0-0.2); BASO % 0.6 % (0.0-1.0); EOS # 0.3 10^3/uL (0.0-0.5); EOS % 3.3 % (0.0-3.0); HEMATOCRIT 37.5 % (36.0-47.0); HEMOGLOBIN 11.9 g/dl (12.0-15.5); LYMPH # 1.7 10^3/uL (1.5-5.0); LYMPH % 20.6 % (24.0-44.0); MEAN CORPUSCULAR HEMOGLOBIN 29.2 pg (27.0-33.0); MEAN CORPUSCULAR HGB CONC 31.7 g/dl (32.0-36.5); MEAN CORPUSCULAR VOLUME 91.9 fl (80.0-96.0); MONO # 0.7 10^3/uL (0.0-0.8); MONO % 8.7 % (2.0-8.0); NEUTROPHILS # 5.4 10^3/uL (1.5-8.5); NEUTROPHILS % 66.4 % (36.0-66.0); PLATELET COUNT, AUTOMATED 249 10^3/uL (150-450); RED BLOOD COUNT 4.08 10^6/uL (4.00-5.40); WHITE BLOOD COUNT 8.2 10^3/uL (4.0-10.0)
[2020-12-15 17:53] LABS: INR 2.4; PROTHROMBIN TIME 26.7 SECONDS (12.5-14.3)
[2020-12-15 17:54] LABS: PARTIAL THROMBOPLASTIN TIME 47.3 SECONDS (24.2-38.5)
[2020-12-15 18:14] LABS: ALBUMIN 3.7 GM/DL (3.2-5.2); ALT/SGPT 21 U/L (12-78); BILIRUBIN,DIRECT 0.2 MG/DL (0.0-0.2); BILIRUBIN,TOTAL 0.9 MG/DL (0.2-1.0); BLOOD UREA NITROGEN 13 MG/DL (7-18); CALCIUM LEVEL 8.4 MG/DL (8.8-10.2); CARBON DIOXIDE LEVEL 28 MEQ/L (21-32); CHLORIDE LEVEL 106 MEQ/L (98-107); CK-MB VALUE MASS < 1.0 NG/ML (<3.6); CPK CREATINE PHOSPHOKINASE 86 U/L (26-192); CREATININE FOR GFR 0.88 MG/DL (0.55-1.30); GLOMERULAR FILTRATION RATE > 60.0 (>39); GLUCOSE, FASTING 102 MG/DL (70-100); MB/CK RELATIVE INDEX 1.16 (< OR =4); NT-PRO BNP 225 PG/ML (<450); POTASSIUM SERUM 3.9 MEQ/L (3.5-5.1); SODIUM LEVEL 140 MEQ/L (136-145); TOTAL PROTEIN 7.4 GM/DL (6.4-8.2); TROPONIN I < 0.02 NG/ML (< 0.10)
[2020-12-15] MEDS ORDERED: IPRATROPIUM 0.5MG/ALBUTEROL 2.5MG INH SOL UD 3ML (DUONEB) NEB ONE (19:10)
--- NOTE | 2020-12-15 19:48 | REPVR ---
PROCEDURE INFORMATION: Exam: CT Chest Without Contrast; Diagnostic Exam date and time: 12/15/2020 7:13 PM Age: 75 years old Clinical indication: Shortness of breath; Additional info: SOB cough fever TECHNIQUE: Imaging protocol: Diagnostic computed tomography of the chest without contrast. 3D rendering (Not supervised by radiologist): MIP and/or 3D reconstructed images were created by the technologist. Radiation optimization: All CT scans at this facility use at least one of these dose optimization techniques: automated exposure control; mA and/or kV adjustment per patient size (includes targeted exams where dose is matched to clinical indication); or iterative reconstruction. COMPARISON: CT Chest without contrast 04/02/2020 5:42 PM FINDINGS: Tubes, catheters and devices: Circular surgical device surrounds the proximal stomach without interval change. Lungs: Bilateral apical pleuroparenchymal scarring. Calcifications in the tracheobronchial tree. Lungs otherwise clear. Pleural spaces: Unremarkable. No pneumothorax. No pleural effusion. Heart: There is mild atherosclerotic calcification of the coronary arteries. Aorta: Unremarkable. No aortic aneurysm. Lymph nodes: Unremarkable. No enlarged lymph nodes. Bones/joints: Shallow dextroscoliosis. Otherwise unremarkable. No acute fracture. Soft tissues: Unremarkable. IMPRESSION: No acute findings. Electronically signed by: Guillermo Robles On 12/15/2020 19:48:04 PM
[2020-12-15] MEDS ORDERED: MOM 30ML SUSPENSION UDC PO PRN (22:00)
[2020-12-15] MEDS ORDERED: MAALOX 30 ML SUSP *UDC PO PRN (22:00)
[2020-12-15] MEDS ORDERED: ACET-683 PO (22:39)
[2020-12-15] MEDS ORDERED: METO1TAB32 PO (22:39)
[2020-12-15] MEDS ORDERED: LINZ145C PO (22:39)
[2020-12-15] MEDS ORDERED: CEFU1TAB22 PO (22:39)
--- NOTE | 2020-12-15 23:39 | HPEPDOC ---
[facility] Medical History & Physical Date of Admission December 16, 2020 Date of Service: December 16, 2020 Primary Care Physician: VIC SUN MD Attending Physician: FELY GONZALEZ MD History and Physical TIME OF SERVICE: 2299 CHIEF COMPLAINT: dyspnea HISTORY OF PRESENT ILLNESS: This 75 yr old F who was diagnosed with COVID 19 early in September presented w c/o dyspnea and wheezing for 3 days, associated with fever of 100.8 at home and chest pain. She was started on Cefuroxime a few days ago (possibly for URI?). 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 HOME MEDICATIONS: Please see below. PHYSICAL EXAMINATION: Vital Signs Date Time Temp Pulse Resp B/P (MAP) Pulse Ox O2 Delivery O2 Flow Rate FiO2 12/15/20 14:35 97.6 68 20 189/79 (115) 99 Room Air GENERAL APPEARANCE: well nourished and developed HEENT: EOMI / no jaundice / lips acyanotic CARDIOVASCULAR: RRR / NRMG LUNGS: coughing / expiratory wheezing MUSCULOSKELETAL: ROMIx 4 INTEGUMENT: not flushed or diaphoretic NEUROLOGICAL: CN 2-12 intact /speech not dysarthric PSYCHIATRIC: A&Ox 3/ able to understand and follow all commands LABORATORY DATA: Immature Granulocyte % (Auto) 0.4, Neutrophils (%) (Auto) 66.4H, Lymphocytes (%) (Auto) 20.6L, Monocytes (%) (Auto) 8.7H, Eosinophils (%) (Auto) 3.3H, Basophils (%) (Auto) 0.6, Neutrophils # (Auto) 5.4, Lymphocytes # (Auto) 1.7, Monocytes # (Auto) 0.7, Eosinophils # (Auto) 0.3, Basophils # (Auto) 0.1, Nucleated Red Blood Cells % (auto) 0.0, Anion Gap 6L, Glomerular Filtration Rate > 60.0, Calcium Level 8.4L, Total Bilirubin 0.9, Direct Bilirubin 0.2, Aspartate Amino Transf (AST/SGOT) 20, Alanine Aminotransferase (ALT/SGPT) 21, Alkaline Phosphatase 70, Total Creatine Kinase 86, Creatine Kinase MB < 1.0, Creatine Kinase MB Relative Index 1.16, Troponin I < 0.02, SD-Dxs-N-Type Natriuretic Peptide 225, Total Protein 7.4, Albumin 3.7, Albumin/Globulin Ratio 1.0L, Thyroid Stimulating Hormone (TSH) 1.590 12/15/20 15:26: Prothrombin Time 26.7H, Prothromb Time International Ratio 2.40, Activated Partial Thromboplast Time 47.3H 12/15/20 15:46: Blood Gas Bicarbonate Standard 25.5, Arterial Blood pH 7.448, Arterial Blood Partial Pressure CO2 36.9, Arterial Blood Partial Pressure O2 211.4H, Arterial Blood Total CO2 26.1, Arterial Blood HCO3 25.0, Arterial Blood Base Excess 1.1, Arterial Blood Oxygen Saturation 99.5H 12/15/20 22:53: Troponin I < 0.02 IMAGING: Chest xray IMPRESSION: No acute pulmonary disease. / CT chest IMPRESSION: No acute findings. 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 Plan: warfarin / f/u INR 5 Anxiety seems very anxious Plan: c/w Clonazepam / can f/u w PCP to titrate her meds 6 hyperthyroidism Plan: Propylthiouracil / bc the wheezing was predominantly in the upper air way will check an US of thyroid to ensure she doesnt have a goiter obstructing the air way 7 Essential HTN Plan: Metoprolol 8 GERD Plan: Pantoprazole DVT n/a on warfarin Dispo: home after less than 2 midnights stay Home Medications Scheduled Aspirin (Aspirin EC) 81 Mg Tablet.dr, 81 MG PO DAILY Atorvastatin Calcium (Atorvastatin Calcium) 40 Mg Tablet, 40 MG PO QPM Cholecalciferol (Vitamin D3) (Vitamin D3) 1,000 Unit Tablet, 5,000 UNITS PO QHS Clonazepam (Clonazepam) 1 Mg Tablet, 1 MG PO DAILY Fluticasone Propionate (Fluticasone Propionate) 16 Gm Bird In Hand.susp, 2 SPRAYS PO BID Metoprolol Succinate (Metoprolol Succinate) 25 Mg Tab.er.24h, 25 MG PO QPM Pantoprazole Sodium (Pantoprazole Sodium) 40 Mg Tablet.dr, 40 MG PO BID Polyvinyl Alcohol (Artificial Tears) 15 Ml Drops, 1 DROP OU QHS Propylthiouracil (Propylthiouracil) 50 Mg Tablet, 50 MG PO 5XW QAM: MON THRU FRI Travoprost (Travatan Z) 0.004% 2.5ML Drops, 1 DROP OU QHS Warfarin Sodium (Warfarin Sodium) 2.5 Mg Tablet, 2.5 MG PO QPM cefUROXime axetil (Cefuroxime) 500 Mg Tablet, 500 MG PO BID START 12/13/20 X 7 DAYS Scheduled PRN Acetaminophen (Acetaminophen) 500 Mg Tablet, 1,000 MG PO Q4H PRN for PAIN Linaclotide (Linzess) 145 Mcg Capsule, 145 MCG PO DAILY PRN for DIARRHEA Allergies Coded Allergies: Contrast Media (Verified Allergy, Severe, "convulse", 11/22/19) Corticosteroids (Glucocorticoids) (Verified Allergy, Mild, ankle swelling, 04/02/20) Quinolones (Verified Allergy, Mild, rash, swelling, 04/02/20) Sulfa (Sulfonamide Antibiotics) (Verified Allergy, Mild, rash, 04/02/20) ciprofloxacin (Verified Allergy, Mild, rash, 04/02/20) codeine (Verified Allergy, Mild, rash, 04/02/20) metoclopramide (Verified Allergy, Mild, rash, 04/02/20) morphine (Verified Allergy, Mild, rash, 04/02/20) prochlorperazine (Verified Allergy, Mild, rash, 04/02/20) albuterol (Verified Allergy, Unknown, 03/29/20) iodine (Verified Allergy, Unknown, 03/29/20) sertraline (Verified Allergy, Unknown, 03/29/20) tetracycline (Verified Allergy, Unknown, 03/29/20) A-FIB/CHADSVASC A-FIB History Current/History of A-Fib/PAF?: No Current PO Anticoag Therapy: No FELY GONZALEZ MD December 15, 2020 23:39
[2020-12-16] VITALS (14 sets, daily range): BP systolic 122–153; BP diastolic 58–72; O2SAT 93–97
[2020-12-16] MEDS: WARFARIN SOD 2.5MG TAB PO SCH ×2 (00:42→16:01)
[2020-12-16] MEDS: ATORVASTATIN 20 MG TAB PO SCH ×2 (00:43→20:46)
[2020-12-16] MEDS: PANTOPRAZOLE 40MG TAB (PROTONIX) PO SCH ×3 (00:43→20:46)
[2020-12-16] MEDS: METOPROLOL SUCC *XL* 25MG TAB (TopROL *XL*) PO SCH ×2 (00:43→20:46)
[2020-12-16] MEDS: VITAMIN D 1,000 INTERNATIONAL UNITS TABLET PO SCH ×2 (00:44→20:46)
[2020-12-16] MEDS: POLYVINYL ALCOHOL OPHTH SOLN 15 ML(LIQUITEARS) OU SCH ×2 (01:13→20:46)
[2020-12-16] MEDS: LATANOPROST 0.005% OPHTH SOLN 2.5 ML OU SCH ×2 (01:13→20:47)
[2020-12-16] MEDS: FLUTICASONE PROP 0.05% NASAL SPRAY 16 GM (FLONASE) SCH ×3 (01:13→20:46)
[2020-12-16] MEDS: CEFUROXIME 500 MG TAB PO SCH ×3 (01:13→20:46)
[2020-12-16] MEDS ORDERED: IPRATROPIUM 0.5MG/ALBUTEROL 2.5MG INH SOL UD 3ML (DUONEB) NEB PRN (02:25)
[2020-12-16] MEDS: BENZONATATE 100 MG CAP PO PRN ×2 (05:11→16:01)
[2020-12-16] MEDS: ACETAMINOPHEN TAB 650MG DOSE (2X325MG) PO PRN ×3 (05:12→16:02)
[2020-12-16 05:42] LABS: HEMOGLOBIN 12.1 g/dl (12.0-15.5); MEAN CORPUSCULAR HEMOGLOBIN 28.9 pg (27.0-33.0); MEAN CORPUSCULAR HGB CONC 31.8 g/dl (32.0-36.5); MEAN CORPUSCULAR VOLUME 90.7 fl (80.0-96.0); PLATELET COUNT, AUTOMATED 243 10^3/uL (150-450); RED BLOOD COUNT 4.19 10^6/uL (4.00-5.40)
[2020-12-16 06:06] LABS: BLOOD UREA NITROGEN 16 MG/DL (7-18); CALCIUM LEVEL 8.3 MG/DL (8.8-10.2); CARBON DIOXIDE LEVEL 23 MEQ/L (21-32); CHLORIDE LEVEL 104 MEQ/L (98-107); CREATININE FOR GFR 1.12 MG/DL (0.55-1.30); GLOMERULAR FILTRATION RATE 50.5 (>39); GLUCOSE, FASTING 276 MG/DL (70-100); POTASSIUM SERUM 4.2 MEQ/L (3.5-5.1); SODIUM LEVEL 134 MEQ/L (136-145); TROPONIN I < 0.02 NG/ML (< 0.10)
--- NOTE | 2020-12-16 06:55 | REPVR ---
PROCEDURE INFORMATION: Exam: US Soft Tissue Head and Neck, Thyroid Exam date and time: 12/16/2020 5:59 AM Age: 75 years old Clinical indication: Dyspnea / difficulty breathing; Additional info: Dyspnea, R/O goiter TECHNIQUE: Imaging protocol: Real-time ultrasound scan of the neck with image documentation. Exam focused on the thyroid. COMPARISON: CT Head without contrast 12/15/2019 12:32 PM FINDINGS: Right thyroid lobe: The right thyroid lobe measures 4.0 x 0.8 x 0.9 cm. - There is 0.4 x 0.2 x 0.3 cm right upper thyroid pole nodule. The nodule is poorly defined, wider than tall, hypoechoic with no echogenic foci. This nodule is commensurate with TR4 nodule. - There is a 0.6 x 0.5 x 0.4 cm right mid thyroid pole nodule. The nodule is solid and cystic with slightly irregular border, wider than tall with no echogenic foci. This nodule is commensurate with TR 4 nodule. Left thyroid lobe: The left thyroid lobe measures 4.2 x 1.2 x 1.1 cm with no focal nodule identified. Isthmus: The isthmus is normal in thickness measuring 2 mm. IMPRESSION: Subcentimeter right thyroid lobe TR4 nodules as described above. Electronically signed by: Ifeanyi Garcia On 12/16/2020 06:54:28 AM
[2020-12-16] MEDS: ASPIRIN 81MG ENTERIC TABLET PO SCH (08:59)
[2020-12-16] MEDS: clonazePAM 1 MG TAB PO SCH (08:59)
[2020-12-16] MEDS: propylthiouraciL 50 MG TAB PO SCH (12:11)
--- NOTE | 2020-12-16 13:23 | ECGEPIP ---
- ED Test Date: 2020-12-15 Pat Name: ERIK BOLDEN Department: Room: - Gender: Female Admitting Clerk: LIZZIE : 1945 Requested By: BEREKET Ardon Order Number: [id number] Reading MD: Henny Valente Measurements Intervals [place] Rate: 56 P: 50 [place]: 164 QRS: 34 QRSD: 88 T: 39 QT: 450 QTc: 434 Interpretive Statements Sinus bradycardia Nonspecific ST abnormality decreased rate 11/30/20 Electronically Signed on 12-16-2020 13:23:23 EDT by Henny Valente
--- NOTE | 2020-12-16 13:30 | IPNPDOC ---
Date Seen The patient was seen on 12/16/20. Progress Note SUBJECTIVE: Patient was seen and examined this morning. She currently has no new complaints. She denies currently feeling short of breath. She states that she has a cough that has been persistent since she has recovered from COVID back in September. She states that her shortness of breath has typically been with walking and is more of a feeling of being winded. She otherwise denies any new complai nts. OBJECTIVE PHYSICAL EXAMINATION: VITAL SIGNS: Please see below. GENERAL: Awake, alert, and oriented. Appears in no acute distress. Lying comfortably in bed. HEENT: Atraumatic, normocephalic. Eyes are nonicteric. Trachea is midline. Mucous membranes are pink and moist. Raspy voice CARDIOVASCULAR: Normal S1, S2. Regular rate and rhythm. No clicks, rubs, or murmurs RESPIRATORY: Clear vesicular breath sounds bilaterally. No rhonchi or rales. Some bronchial wheezing/breath sounds. Symmetric chest expansion. ABDOMINAL: Soft, nondistended. Nontender. Normoactive bowel sounds throughout EXTREMITIES: No edema. Full and equal pulses in bilateral upper and lower extremities NEUROLOGICAL: No focal neurological deficits PSYCHOLOGICAL: Mood and affect appear appropriate LABORATORY DATA, IMAGING STUDIES, MICROBIOLOGY: Please see below. DVT prophylaxis ordered?: Warfarin ASSESSMENT AND PLAN: Patient is a 75 year old female with a past medical history significant for DVT and PE with protein C deficiency on chronic anticoagulation, anxiety, hyperthyroidism, GERD, and HTN who presented to the [facility] ER with complaint of shortness of breath and chronic cough since September. Patient was pre viously diagnosed in September with COVID-19. She had mild symptoms at the time. Since that time she has had a continued cough as well as feeling winded particularly with walking. She denies any chest pain, pressure. She has denied any hemoptysis. In ER patient was admitted for evaluation and management of shortness of breath PROBLEMS: 1. Chronic Cough/Shortness of breath -Patient presented to the ER with a complaint of cough and shortness of breath. She had COVID-19 in September. It was around this time that her cough started and had continued. Additionally, she has noted shortness of breath which primarily occurs during coughing fits or when she walks about 1-2 blocks. 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 -Patient is not hypoxic. -Will continue Duonebs PRN. Tesslon Pearls for cough. Patient recently established with pulmonary medicine. She has had PFTs which were reportedly normal. Patient was advised that post-infectious cough/post-Covid syndrome can last for 2 weeks to a few months. -Have ordered PT/OT 2. History of Protein C deficiency with DVT and PE -Patient is chronically on Warfarin. INR is in therapeutic range. Unlikely that patient has had a PE 3. Anxiety -Continue Clonazepam 4. Hyperthyroidism -Continue Propylthiouracil 5. GERD -Continue Prilosec 6. DVT Prophylaxis -Warfarin Disposition: Likely discharge home in 24 hours GME ATTESTATION My faculty preceptor for this patient encounter was physically present during the encounter and was fully available. All aspects of the patient interview, examination, medical decision making process, and medical care plan development were reviewed and approved by the faculty preceptor. The faculty preceptor is aware and concurs with the plan as stated in the body of this note and will attest to such by his/her cosignature. ATTENDING NOTE I personally examined the patient, the investigative findings and discussed the plan as the detailed above by the resident physician. VS, I&O, 24H, Fishbone Vital Signs/I&O Vital Signs Date Time Temp Pulse Resp B/P (MAP) Pulse Ox O2 Delivery O2 Flow Rate FiO2 12/16/20 12:00 98.1 68 20 122/58 (79) 94 12/16/20 00:21 Room Air I&O- Last 24 Hours up to 6 AM 12/16/20 06:00 Intake Total 640 ml Output Total 400 ml Balance 240 ml Laboratory Data 24H LABS Laboratory Tests 2 12/15/20 14:57: Immature Granulocyte % (Auto) 0.4, Neutrophils (%) (Auto) 66.4H, Lymphocytes (%) (Auto) 20.6L, Monocytes (%) (Auto) 8.7H, Eosinophils (%) (Auto) 3.3H, Basophils (%) (Auto) 0.6, Neutrophils # (Auto) 5.4, Lymphocytes # (Auto) 1.7, Monocytes # (Auto) 0.7, Eosinophils # (Auto) 0.3, Basophils # (Auto) 0.1, Nucleated Red Blood Cells % (auto) 0.0, Anion Gap 6L, Glomerular Filtration Rate > 60.0, Calcium Level 8.4L, Total Bilirubin 0.9, Direct Bilirubin 0.2, Aspartate Amino Transf (AST/SGOT) 20, Alanine Aminotransferase (ALT/SGPT) 21, Alkaline Phosphatase 70, Total Creatine Kinase 86, Creatine Kinase MB < 1.0, Creatine Kinase MB Relative Index 1.16, Troponin I < 0.02, JF-Uej-X-Type Natriuretic Peptide 225, Total Protein 7.4, Albumin 3.7, Albumin/Globulin Ratio 1.0L, Thyroid Stimulating Hormone (TSH) 1.590 12/15/20 15:26: Prothrombin Time 26.7H, Prothromb Time International Ratio 2.40, Activated Partial Thromboplast Time 47.3H 12/15/20 15:46: Blood Gas Bicarbonate Standard 25.5, Arterial Blood pH 7.448, Arterial Blood Partial Pressure CO2 36.9, Arterial Blood Partial Pressure O2 211.4H, Arterial Blood Total CO2 26.1, Arterial Blood HCO3 25.0, Arterial Blood Base Excess 1.1, Arterial Blood Oxygen Saturation 99.5H 12/15/20 22:53: Troponin I < 0.02 12/16/20 05:16: Nucleated Red Blood Cells % (auto) 0.0, Anion Gap 7L, Glomerular Filtration Rate 50.5, Calcium Level 8.3L, Troponin I < 0.02 CBC/BMP Laboratory Tests 12/15/20 14:57 12/16/20 05:16 Microbiology Microbiology 12/15/20 Blood Culture, Received Pending 12/15/20 Respiratory Virus Panel (PCR) (ANTHONY) - Final, Complete 12/15/20 Blood Culture, Received Pending KATHLEEN FRYE DO December 16, 2020 13:30 TUYET BARTON MD December 16, 2020 18:01
[2020-12-17] VITALS: O2SAT 95
[2020-12-17 04:00] VITALS: BP 133/61; O2SAT 95
[2020-12-17 05:14] LABS: HEMATOCRIT 33.6 % (36.0-47.0); HEMOGLOBIN 10.8 g/dl (12.0-15.5); MEAN CORPUSCULAR HEMOGLOBIN 29.4 pg (27.0-33.0); MEAN CORPUSCULAR HGB CONC 32.1 g/dl (32.0-36.5); MEAN CORPUSCULAR VOLUME 91.6 fl (80.0-96.0); PLATELET COUNT, AUTOMATED 240 10^3/uL (150-450); RED BLOOD COUNT 3.67 10^6/uL (4.00-5.40); WHITE BLOOD COUNT 10.9 10^3/uL (4.0-10.0)
[2020-12-17 05:25] LABS: INR 4.04; PROTHROMBIN TIME 40.2 SECONDS (12.5-14.3)
[2020-12-17 05:26] LABS: PARTIAL THROMBOPLASTIN TIME 44.5 SECONDS (24.2-38.5)
[2020-12-17 05:45] LABS: BLOOD UREA NITROGEN 26 MG/DL (7-18); CALCIUM LEVEL 8.5 MG/DL (8.8-10.2); CARBON DIOXIDE LEVEL 27 MEQ/L (21-32); CHLORIDE LEVEL 110 MEQ/L (98-107); CREATININE FOR GFR 0.91 MG/DL (0.55-1.30); GLOMERULAR FILTRATION RATE > 60.0 (>39); GLUCOSE, FASTING 99 MG/DL (70-100); POTASSIUM SERUM 4.1 MEQ/L (3.5-5.1); SODIUM LEVEL 141 MEQ/L (136-145)
[2020-12-17 07:13] VITALS: BP 129/72
[2020-12-17] MEDS ORDERED: BENZ-18 PO (07:34)
[2020-12-17] MEDS: CEFUROXIME 500 MG TAB PO SCH (09:07)
[2020-12-17] MEDS: FLUTICASONE PROP 0.05% NASAL SPRAY 16 GM (FLONASE) SCH (09:08)
[2020-12-17] MEDS: ACETAMINOPHEN TAB 650MG DOSE (2X325MG) PO PRN (09:09)
[2020-12-17] MEDS: clonazePAM 1 MG TAB PO SCH (09:10)
[2020-12-17] MEDS: PANTOPRAZOLE 40MG TAB (PROTONIX) PO SCH (09:10)
[2020-12-17] MEDS: ASPIRIN 81MG ENTERIC TABLET PO SCH (09:10)
[2020-12-17] MEDS: propylthiouraciL 50 MG TAB PO SCH (09:10)
[2020-12-17] MEDS ORDERED: PRED20TA PO (10:27)
--- NOTE | 2020-12-17 12:06 | DS.PDOC ---
Discharge Summary General Date of Admission December 15, 2020 at 14:35 Date of Discharge 12/17/20 Primary Care Physician: SOFIA CERVANTES DO Attending Physician: HO RAWLS MD Discharge Summary PROCEDURES PERFORMED DURING STAY: [None]. ADMITTING DIAGNOSES: 1. Cough, dyspnea 2. 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 Anxiety 4. Essential HTN 5. Normocytic Anemia DISCHARGE DIAGNOSES: 1. Cough, dyspnea likely secondary to post-infectious 2. 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 Anxiety 4. Essential HTN 5. Normocytic Anemia COMPLICATIONS/CHIEF COMPLAINT: Dyspnea. HISTORY OF PRESENT ILLNESS: Patient is a 75 year old female with a past medical history significant for DVT and PE secondary to Protein C deficiency on Coumadin and previous COVID-19 pneumonia in September 2020 who presented to the [facility] ER with complaint of persistent cough and episodic shortness of breath. Patient had stated that in September of 2020 she was diagnosed with COVID-19. She stated that her symptoms were fairly mild. After her COVID-19 symptoms resolved she had noted a persistent cough. She stated that she would go into coughing spells and this would cause her to get short of breath. She had been seen by her PCP and was started on antibiotics. She did not notice any difference in her cough. Additionally, the patient had stated that since having COVID-19 she has felt winded while walking. She denies any chest pain or pressure with exertion. In th e ED the patient was vitally stable. She was not hypoxic but was reportedly noted to be wheezing. CT of the chest was negative for any acute findings. She was admitted and given nebulizers. HOSPITAL COURSE: During the course of the patients hospitalization she was continued on supportive measures for her cough. She worked with physical therapy. Patient noted continued cough. It was felt that her cough was likely secondary to post-infectious cough. Her cough started after COVID-19. Additionally, on further questioning the patient had stated that she has had a similar cough like this years ago. She is unsure if it was preceded by a viral URI however stated that it had eventually stopped. She stated that she has used albuterol inhalers before but developed a racing heart beat. She was recently prescribed a Xopenex inhaler. Patient was advised to continue her Xopenex inhaler. Additionally, she was discharged with a 5 day course of oral prednisone. 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 -Patient is not hypoxic. -Recommended to continue Xopenex prn. 5 day course of prednisone -Tessalon Pearls as needed for cough -Follow-up with PCP and Pulmonary Medicine 2. History of Protein C deficiency with DVT and PE -Patient is chronically on Warfarin. INR is above therapeutic range. Unlikely that patient has had a PE -Patient has been advised to hold Coumadin for a day to help return INR within therapeutic range 3. Anxiety -Continue Clonazepam 4. Hyperthyroidism -Continue Propylthiouracil 5. GERD -Continue Prilosec DISCHARGE MEDICATIONS: Please see below. ALLERGIES: Please see below. PHYSICAL EXAMINATION ON DISCHARGE: VITAL SIGNS: Please see below. GENERAL: Awake, alert ,and oriented. Appears in no acute distress. Sitting up in bed comfortably HEENT: Atraumatic, normocephalic. Eyes are nonicteric. Trachea is midline. Mucous membranes are pink and moist NECK: No palpable cervical, axillary, or supraclavicular lymphadenopathy CARDIOVASCULAR EXAMINATION: Normal S1, S2. Regular rate and rhythm. No clicks, rubs, or murmurs RESPIRATORY EXAMINATION: Clear vesicular breath sounds bilaterally. No wheezes, rhonchi, or rales. Symmetric chest expansion. ABDOMINAL EXAMINATION: Soft, nondistended. Normoactive bowel sounds throughout. Nontender EXTREMITIES: No edema. Full and equal pulses in bilateral upper and lower extremities SKIN: No rashes or lesions NEUROLOGICAL EXAMINATION: No focal neurological deficits PSYCHIATRIC EXAMINATION: Mood and affect appear appropriate LABORATORY DATA: Please see below. IMAGING: INDICATION: SOB. COMPARISON: 11/30/2020. TECHNIQUE: Single portable AP view of the chest was performed. FINDINGS: There is no acute infiltrate or pulmonary edema. Lungs are clear. The heart is not significantly enlarged. The mediastinal silhouette is unremarkable except for mild calcification of the thoracic aorta. The visualized osseous structures are intact. IMPRESSION: No acute pulmonary disease. PROCEDURE INFORMATION: Exam: CT Chest Without Contrast; Diagnostic Exam date and time: 12/15/2020 7:13 PM Age: 75 years old Clinical indication: Shortness of breath; Additional info: SOB cough fever TECHNIQUE: Imaging protocol: Diagnostic computed tomography of the chest without contrast. 3D rendering (Not supervised by radiologist): MIP and/or 3D reconstructed images were created by the technologist. Radiation optimization: All CT scans at this facility use at least one of these dose optimization techniques: automated exposure control; mA and/or kV adjustment per patient size (includes targeted exams where dose is matched to clinical indication); or iterative reconstruction. COMPARISON: CT Chest without contrast 04/02/2020 5:42 PM FINDINGS: Tubes, catheters and devices: Circular surgical device surrounds the proximal stomach without interval change. Lungs: Bilateral apical pleuroparenchymal scarring. Calcifications in the tracheobronchial tree. Lungs otherwise clear. Pleural spaces: Unremarkable. No pneumothorax. No pleural effusion. Heart: There is mild atherosclerotic calcification of the coronary arteries. Aorta: Unremarkable. No aortic aneurysm. Lymph nodes: Unremarkable. No enlarged lymph nodes. Bones/joints: Shallow dextroscoliosis. Otherwise unremarkable. No acute fracture. Soft tissues: Unremarkable. IMPRESSION: No acute findings. Electronically signed by: Guillermo Robles On 12/15/2020 19:48:04 PM PROCEDURE INFORMATION: Exam: US Soft Tissue Head and Neck, Thyroid Exam date and time: 12/16/2020 5:59 AM Age: 75 years old Clinical indication: Dyspnea / difficulty breathing; Additional info: Dyspnea, R/O goiter TECHNIQUE: Imaging protocol: Real-time ultrasound scan of the neck with image documentation. Exam focused on the thyroid. COMPARISON: CT Head without contrast 12/15/2019 12:32 PM FINDINGS: Right thyroid lobe: The right thyroid lobe measures 4.0 x 0.8 x 0.9 cm. - There is 0.4 x 0.2 x 0.3 cm right upper thyroid pole nodule. The nodule is poorly defined, wider than tall, hypoechoic with no echogenic foci. This nodule is commensurate with TR4 nodule. - There is a 0.6 x 0.5 x 0.4 cm right mid thyroid pole nodule. The nodule is solid and cystic with slightly irregular border, wider than tall with no echogenic foci. This nodule is commensurate with TR 4 nodule. Left thyroid lobe: The left thyroid lobe measures 4.2 x 1.2 x 1.1 cm with no focal nodule identified. Isthmus: The isthmus is normal in thickness measuring 2 mm. IMPRESSION: Subcentimeter right thyroid lobe TR4 nodules as described above. Electronically signed by: Ifeanyi Garcia On 12/16/2020 06:54:28 AM PROGNOSIS: Good ACTIVITY: [As tolerated]. DIET: as tolerated DISCHARGE PLAN: Discharge home with follow-up with PCP in 5-10 days. Follow-up with Pulmonary medicine in 1-2 weeks. Continue Tessalon Perles. Continue Xopenex inhaler as needed for cough. Continue Prednisone 20mg once daily. Will hold Coumadin for 24 hours. Repeat INR within 24 hours. DISCHARGE CONDITION: [Stable]. TIME SPENT ON DISCHARGE: Greater than 35 minutes. Vital Signs/I&Os Vital Signs Date Time Temp Pulse Resp B/P (MAP) Pulse Ox O2 Delivery O2 Flow Rate FiO2 12/17/20 07:13 97.3 69 18 129/72 (91) 93 Room Air 12/16/20 20:00 1.0 I&O- Last 24 Hours up to 6 AM 12/17/20 06:00 Intake Total 800 ml Output Total 1750 ml Balance -950 ml Laboratory Data Labs 24H Laboratory Tests 2 12/17/20 04:58: Nucleated Red Blood Cells % (auto) 0.0, Prothrombin Time 40.2H, Prothromb Time International Ratio 4.04, Activated Partial Thromboplast Time 44.5H, Anion Gap 4L, Glomerular Filtration Rate > 60.0, Calcium Level 8.5L CBC/BMP Laboratory Tests 12/17/20 04:58 Microbiology Microbiology 12/15/20 Blood Culture - Preliminary, Resulted No growth after 24 hours . All specim... 12/15/20 Respiratory Virus Panel (PCR) (ANTHONY) - Final, Complete 12/15/20 Blood Culture - Preliminary, Resulted No growth after 24 hours . All specim... Discharge Medications Scheduled Aspirin (Aspirin EC) 81 Mg Tablet.dr, 81 MG PO DAILY, (Reported) Atorvastatin Calcium (Atorvastatin Calcium) 40 Mg Tablet, 40 MG PO QPM, (Reported) Cholecalciferol (Vitamin D3) (Vitamin D3) 1,000 Unit Tablet, 5,000 UNITS PO QHS, (Reported) Clonazepam (Clonazepam) 1 Mg Tablet, 1 MG PO DAILY, (Reported) Fluticasone Propionate (Fluticasone Propionate) 16 Gm [place].susp, 2 SPRAYS PO BID, (Reported) Metoprolol Succinate (Metoprolol Succinate) 25 Mg Tab.er.24h, 25 MG PO QPM, (Reported) Pantoprazole Sodium (Pantoprazole Sodium) 40 Mg Tablet.dr, 40 MG PO BID, (Reported) Polyvinyl Alcohol (Artificial Tears) 15 Ml Drops, 1 DROP OU QHS, (Reported) Prednisone (Prednisone) 20 Mg Tablet, 1 TAB PO BID Propylthiouracil (Propylthiouracil) 50 Mg Tablet, 50 MG PO 5XW, (Reported) QAM: MON THRU FRI Travoprost (Travatan Z) 0.004% 2.5ML Drops, 1 DROP OU QHS, (Reported) Warfarin Sodium (Warfarin Sodium) 2.5 Mg Tablet, 2.5 MG PO QPM, (Reported) Scheduled PRN Acetaminophen (Acetaminophen) 500 Mg Tablet, 1,000 MG PO Q4H PRN for PAIN, (Reported) Benzonatate (Benzonatate) 100 Mg Capsule, 200 MG PO Q8HP PRN for cough Linaclotide (Linzess) 145 Mcg Capsule, 145 MCG PO DAILY PRN for DIARRHEA, (Reported) Allergies Coded Allergies: Contrast Media (Verified Allergy, Severe, "convulse", 11/22/19) Corticosteroids (Glucocorticoids) (Verified Allergy, Mild, ankle swelling, 04/02/20) Quinolones (Verified Allergy, Mild, rash, swelling, 04/02/20) Sulfa (Sulfonamide Antibiotics) (Verified Allergy, Mild, rash, 04/02/20) ciprofloxacin (Verified Allergy, Mild, rash, 04/02/20) codeine (Verified Allergy, Mild, rash, 04/02/20) metoclopramide (Verified Allergy, Mild, rash, 04/02/20) morphine (Verified Allergy, Mild, rash, 04/02/20) prochlorperazine (Verified Allergy, Mild, rash, 04/02/20) albuterol (Verified Allergy, Unknown, 03/29/20) iodine (Verified Allergy, Unknown, 03/29/20) sertraline (Verified Allergy, Unknown, 03/29/20) tetracycline (Verified Allergy, Unknown, 03/29/20) GME ATTESTATION GME ATTESTATION My faculty preceptor for this patient encounter was physically present during the encounter and was fully available. All aspects of the patient interview, examination, medical decision making process, and medical care plan development were reviewed and approved by the faculty preceptor. The faculty preceptor is aware and concurs with the plan as stated in the body of this note and will attest to such by his/her cosignature. ATTENDING NOTE I, Ho Rawls, have independently examined this patient and performed my own physical exam, as well as reviewed the documentation and edited where necessary. I have discussed in detail with the resident / student the findings and plan of treatment as documented by the resident / student and edited their note. I agree with their findings and treatment plan and have edited their documentation. I will continue to follow the patient during this hospital stay. Time spent on discharge 35 minutes KATHLEEN FRYE DO December 17, 2020 12:06 HO RAWLS MD December 17, 2020 14:24
== END 2020-12-17 13:45 | disposition home or self-care (01) ==
LOC: M ED 14:34 → M ED INP 14:35 → ENRESERV 23:40 → M PCU 12-16 00:16
PROVIDERS: ADMIT Internal Medicine; ATTEND Internal Medicine
DX: R05 Cough (principal); R06.02 Shortness of breath; Z86.16 Personal history of COVID-19; D68.59 Other primary thrombophilia; Z86.718 Personal history of other venous thrombosis and embolism; Z86.711 Personal history of pulmonary embolism; I10 Essential (primary) hypertension; F41.9 Anxiety disorder, unspecified; D64.9 Anemia, unspecified; R07.9 Chest pain, unspecified; E04.1 Nontoxic single thyroid nodule; K21.9 Gastro-esophageal reflux disease without esophagitis; E05.90 Thyrotoxicosis, unspecified without thyrotoxic crisis or storm; E78.5 Hyperlipidemia, unspecified; M81.0 Age-related osteoporosis without current pathological fracture; H40.9 Unspecified glaucoma; Z79.899 Other long term (current) drug therapy; Z79.01 Long term (current) use of a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; Z79.82 Long term (current) use of aspirin; Z79.52 Long term (current) use of systemic steroids; Z91.041 Radiographic dye allergy status; Z88.2 Allergy status to sulfonamides; Z88.8 Allergy status to other drugs, medicaments and biological substances; Z88.1 Allergy status to other antibiotic agents; Z88.5 Allergy status to narcotic agent; Z87.891 Personal history of nicotine dependence
CPT/HCPCS: 36415; 36600; 71045; 71250; 76536; 80048; 80076; 82550; 82553; 82803; 83880; 84443; 84484; 85025; 85027; 85610; 85730; 87040; 87798; 93005; 93041; 94010; 94640; 96374; 99285; G0378; J2930

== ENCOUNTER → 2021-01-06 | Outpatient (CLI) | payer MEDICARE, OTHER ==
[~2021-01-06] MED LIST changes: +ACET-683 PO; +CEFU1TAB22 PO; +LINZ145C PO; +PRED20TA PO
--- NOTE | 2021-01-06 09:45 | REP ---
INDICATION: POST VIRAL FATIGUE SYNDROME COMPARISON: 12/15/2020 TECHNIQUE: PA and lateral. FINDINGS: The mediastinum and cardiac silhouette are normal. The lung oh are clear and without acute consolidation, effusion, or pneumothorax. The skeletal structures are intact and normal. IMPRESSION: No acute cardiopulmonary process. <Electronically signed by Tea Qiu > 01/06/21 [id number]
== END ==
LOC: M WUC 08:51
PROVIDERS: ATTEND Physician Assistant
DX: G93.3 Postviral and related fatigue syndromes (principal)

== ENCOUNTER → 2021-01-13 | Outpatient (CLI) | payer MEDICARE, OTHER ==
--- NOTE | 2021-01-13 14:38 | REP ---
INDICATION: CKD 2, HYDRONEPHROSIS. COMPARISON: CT 04/02/2020.. TECHNIQUE: Real-time sonographic evaluation of the kidneys is performed. FINDINGS: Renal cortical echogenicity pattern is normal bilaterally and contours are smooth. Small cystic areas throughout the right pelvocaliceal system are felt to represent small parapelvic cysts correlating with prior CT exams. Similarly a 1.9 cm cystic structure in the region of the left renal pelvis is felt to represent a parapelvic cyst. This could be confirmed with dedicated CT of the kidneys with and without contrast. The right kidney measures 9.5 x 5.5 x 4.1 cm. Left renal dimensions are 9.5 x 4.9 x 4.7 cm. Urinary bladder is not well distended. Ureteral jets are seen in the urinary bladder bilaterally with Doppler color evaluation. IMPRESSION: Small cystic areas throughout the right pelvocaliceal system and in the region of the left renal pelvis are felt to represent parapelvic cysts bilaterally. This could be confirmed with dedicated CT of the kidneys with and without contrast. <Electronically signed by Jonathan Duque > 01/13/21 [id number]
== END ==
LOC: M RAD 12:14
PROVIDERS: ATTEND Internal Medicine Nephrology
DX: N13.39 Other hydronephrosis (principal); D68.59 Other primary thrombophilia; N18.2 Chronic kidney disease, stage 2 (mild); I12.9 Hypertensive chronic kidney disease with stage 1 through stage 4 chronic kidney disease, or unspecified chronic kidney disease

== ENCOUNTER → 2021-02-12 | Outpatient (CLI) | payer MEDICARE, OTHER | LOC: M WUC 09:56 | PROVIDERS: ATTEND Internal Medicine Endocrinology, Diabetes & Metabolism | DX: M81.0 Age-related osteoporosis without current pathological fracture (principal) ==

== ENCOUNTER → 2021-02-19 | Outpatient (CLI) | payer MEDICARE, OTHER ==
--- NOTE | 2021-02-19 09:49 | REP ---
INDICATION: CKD 3A, CYST OF KIDNEY, HYDRONEPHROSIS. COMPARISON: 04/02/2020, 12/13/2019. TECHNIQUE: Noncontrast scanning through the abdomen and pelvis with coronal and sagittal reconstructions. FINDINGS: CT abdomen: Lung bases are clear. The heart is not enlarged and there is no pericardial thickening or effusion. No definite hiatal hernia. There is an [place] anti reflux device about the GE junction. This has typical circular donut shape. There is no hepatosplenomegaly, focal hepatic or splenic mass, biliary dilatation or ascites no calcified gallstones. Pancreas was grossly unremarkable. Adrenal glands normal. Are bilateral parapelvic cysts and extrarenal pelves bilaterally. The ureters show normal course to the bladder without dilatation or stone. No nephrolithiasis. No perinephric fluid collection. No evidence for a solid renal mass. There is small bowel loops mildly prominent proximally as on previous studies normal caliber of mid to distal small bowel loops. There is evidence of right hemicolectomy with the nasty [place] sutures in the right upper quadrant. All of this unchanged remainder of the abdominal portion of colon is unremarkable. No periaortic, other retroperitoneal or mesenteric pathologic sized lymphadenopathy. Lung window review of also CT slices shows no evidence of perforation or free air anywhere in the abdomen or pelvis. Bone windows show lower lumbar facet arthropathy, mild. No compression deformity or destructive lesions. The visualized ribs are unremarkable, CT pelvis: Bony sacrum, SI joints pelvis and hips show no acute finding. Uterus absent there is no adnexal mass, pelvic free fluid or adenopathy distal left colon sigmoid and rectum show few scattered diverticula without signs of diverticulitis. Bladder is only partially filled and without stone. The distal ureters without dilatation or stone. Multiple small scattered pelvic calcifications from vascular source. There is no ventral or inguinal hernia nor pathologic sized inguinal adenopathy. IMPRESSION: 1. Kidneys with a 0.4 cm right and 9.2 cm left system with some mild atrophy. There are bilateral parapelvic cysts and extrarenal pelves without the renal stone disease. Solid mass. Hydroureter or ureteral stone. Bladder unremarkable. 2. Prior hysterectomy and right hemicolectomy. Some minor diverticulosis distal left colon and sigmoid without diverticulitis. Patient within [place] anti reflux device, unchanged. Stable exam. <Electronically signed by Feng Mora > 02/19/21 [id number]
== END ==
LOC: M RAD 08:51
PROVIDERS: ATTEND Internal Medicine Nephrology
DX: N18.30 Chronic kidney disease, stage 3 unspecified (principal)

== ENCOUNTER → 2021-02-28 | Outpatient (REF) | payer MEDICARE, OTHER ==
[~2021-02-28] MED LIST changes: +BUPR1TAB52 PO; -MONT10TA10 PO; +MONT10TA97 PO; +OMEP-173 PO; -OMEP-218 PO; +OXYC1TAB23 PO; +SUCR1SS PO; +SUCR1TA PO; +TOLT2CAP4 PO
== END ==
LOC: M LAB REF 17:08
PROVIDERS: ATTEND Physician Assistant
DX: R05 Cough (principal)

== ENCOUNTER → 2021-03-05 | Outpatient (REF) | payer MEDICARE, OTHER ==
[~2021-03-05] MED LIST changes: -BUPR1TAB52 PO; +MONT10TA10 PO; -MONT10TA97 PO; -OMEP-173 PO; +OMEP-218 PO; -OXYC1TAB23 PO; -SUCR1SS PO; -SUCR1TA PO; -TOLT2CAP4 PO
== END ==
LOC: M LAB REF 13:01
PROVIDERS: ATTEND Internal Medicine Nephrology
DX: N18.31 Chronic kidney disease, stage 3a (principal)

== ENCOUNTER → 2021-05-20 | Outpatient (REF) | payer MEDICARE, OTHER | LOC: M LAB REF 16:55 | PROVIDERS: ATTEND Physician Assistant | DX: J20.9 Acute bronchitis, unspecified (principal) ==

== ENCOUNTER 2021-06-08 09:56 | Observation (INO) | payer MEDICARE, OTHER ==
[~2021-06-08] VITALS: Ht 162.6 cm; Wt 98.1 kg
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
--- OUTSIDE RECORDS SUMMARY | 2021-06-08 10:03 | CCD | Continuity of Care Document ---
Author Author Corina ROJAS PA Organization Unknown Address [place] [address] Phone [phone] Care Team Providers Care Wood Boring Machine Operator Name Role Phone Lakshmi Grajeda D.O. AUTM [phone] Jamie Mark MD AUTM [phone] Jose Ashley LCSW AUTM [phone] Staci Dickens MS AUTM [phone] [employer] AUTM [phone] Tanya Estes M.D. AUTM [phone] William Freed MD AUTM [phone] [facility] - [facility] AUTM [phone] [facility] Home Health AUTM [phone] [facility] Homecare AUTM [phone] Brandon Zambrano M.D. AUTM [phone] Problems Active Problems Provider Date Insomnia ELLIOT [...] cough 45caps J20.9 Lakshmi Grajeda D.O. 05/20/2021 Prednisone 20mg Tablets take two tablets once a day by mouth for five days 10tabs J20.9 Prema Forde.ORahul 05/20/2021 Xyzal Allergy 24HR 5mg Tablets 1 [...] mouth wash after each use 8gm G93.3 Prema Rodriguez.O. 0 01/07/2021 Bath/Shower Seat With Back/Adjustable Misc use as needed for bathing and showering. 1units G93.3 Prema Rodriguez.ORahul 12/18/2020 Walker Wheels/Fixed With 8 Adjustment Ho les/5" Fixed 5" Misc prognosis: fair, duration: 99. 1units G93.3 Prema Forde.ORahul 12/18/2020 Xopenex HFA 45mcg/Act Aerosol 1-2 puffs every 4-6 hours 15gm Duglas RodriguezORahul 10/07 Depakote ER 250mg Tablets ER 24HR take one tablet by mouth each evening. G43.009 Lakshmi Yeb er, D.ORahul 10/01/2020 Maxalt 10mg Tablets take one tablet by mouth at the start of headache and repeat in 2 hours if needed 30tabs G43.009 Prema Rodriguez.ORahul 10/01/2020 Montelukast Sodium 10mg Tablets 1 by mouth every day 90tabs R05 Duglas RodriguezORahul 10/01 Linzess 145mcg Capsules 1 capsule by mouth daily on an empty stomach in the in the morning 90caps Prema Rodriguez.O. 08/01/2020 Tramadol HCL 50mg Tablets take one tablet by mouth every 8 hours for pain istop: [id number] 60tabs M25.522 Prema Forde.O. 08/01/2020 Cetirizine HCL 10mg Tablets 1 by mouth every day at bedtime 30tabs R09.82 Prema Rodriguez.O. 04/24/[address] 1 by mouth every day 90tabs Prema Rodriguez.O. 02/[address] [facility] Probiotic Capsules one capsule by mouth once per day 90caps Prema Padilla.O. 12/18/2019 Shingrix 50mcg/0.5ML Suspension Re c administer [facility]ing[facility] Prema Malave.ORahul 06/27/2019 Fluticasone Propionate 50mcg/Act Suspension 2 spray each nostril once a day 16gm J06.9 Prema Gordon.O. 10/14/2018 Propylthiouracil 50mg Tablets 1 by mouth every day 90tabs Prema Rodriguez.O. 08/18 Klonopin 1mg Tablets 1 tablet by mouth daily istop: [id number] 30tabs F41.1 Duglas RodriguezO . 08/18/2017 Atorvastatin Calcium 40mg Tablets 1 tab by mouth daily 90tabs Prema Rodriguez.O. Vitamin D-3 1000Unit Capsules 1 by mouth every day 90caps Prema Rodriguez.ORahul Calcium 600 600mg Tablets Unknown Warfarin Sodium 2.5mg Tablets 1 tab by mouth in the evening On Rudy Cedeno M.D . Metoprolol Succinate ER 25mg Tablets ER 24HR 1 by mouth every day 90tabs Prema Rodriguez.ORahul History Medications Benzonatate 100mg Capsules 1-2 by mouth every 8 hours 90caps Prema Rodriguez.O. 01/01 - 02/17/2021 Advair Diskus 100-50mcg/Dose Aeros ol two puffs twice daily for shortness of breath. Rinse and gargle with salt water or mouth wash after each use 60units G93.3 Prema Rodriguez.O. 01/01/2021 - 01/07/2021 Flovent HFA 110mcg/Act Aerosol two puffs twice daily for shortness of breath. Rinse and gargle with salt water or mouth wash after each use 12gm G93.3 Lakshmi Grajeda D.O. 0 12/18/2020 - 01/01/2021 Hydrocodone Polistirex/Chlorpheniramine Polistirex 10- 8mg/5ML Suer take 1 teaspoon twice daily as needed for cough. 70ml G93.3 Duglas RodriguezO. 12/18/2020 - 01/01/2021 Pulmicort Flexhaler 90mcg/Act Aero sumeet 2 puffs inhaled twice a day. rinse mouth out thoroughly afterwards 3units G93.3 Duglas RodriguezO. 12/04/2020 - 12/18/2020 Benzonatate 200mg Capsules take one capsule every 8 hours as needed to help control cough 45caps G93.3 Prema Rodriguez.O. 12/04/2020 - 12/18/2020 Immunizations CPT Code Status Date Vaccine Lot # U-Flu Given 04/05/2019 Influenza,Unspecified [id number] Given 04/05/2019 Pneumococcal Con jugate Vaccine 13 Valent For Intramuscular Use 04492 Given 06/09/2018 Influenza Virus Vaccine, Quadrivalent, Split, Preservative Free [id number] Given 06/09/2018 Pneumococcal Con jugate Vaccine 13 Valent For Intramuscular Use [id number] Vital Signs Date Vital Result Comment 05/20/2021 3:36pm BP Systolic 138 mmHg BP Diastolic 76 mmHg Height 63.7 inches 5'3.70" Heart Rate 86 /min Respiratory Rate 20 /min Body Temperature 98.0 F O2 % BldC Oximetry 97 % [place] Body Weight 115 lb 05/07/2021 9:23am BP Systolic 138 mmHg BP Diastolic 76 mmHg Height 63.7 inches 5'3.70" Weight 153.38 lb BMI (Body Mass Index) 26.6 kg/m2 Heart Rate 82 /min Respiratory Rate 18 /min Body Temperature 98.4 F O2 % BldC Oximetry 97 % [place] Body Weight 115 lb Results Test Acquired Date Facility Test Result H/L Range Note Respiratory Panel 05/20/2021 [place] [id number] [phone] Respiratory Panel This respiratory <SEE NOTE> 1 Respiratory Panel 02/28/[address] [address] [phone] Respiratory Panel This respiratory <SEE NOTE> 2 CBC With Differential 12/06/[address] [address] [phone] White Blood Count 6.2 10 Normal 4.0-10.0 [...] 36.0-66.0 Lymph % 21.8 % Low 24.0-44.0 Josephine % 7.1 % Normal 2.0-8.0 Eos % 2.9 % Normal 0.0-3.0 Baso % 0.8 % Normal 0.0-1.0 Immature Granulocyte % 0.3 % Normal 0-3.0 Nucleated Red Blood Cell % 0.0 % Normal 0-0 Neutrophils # 4.2 10 Normal 1.5-8.5 Lymph # 1.4 10 Low 1.5-5.0 Josephine # 0.4 10 Normal 0.0-0.8 Eos # 0.2 10 Normal 0.0-0.5 Baso # 0.1 10 Normal 0.0-0.2 Laboratory test finding 12/06/[address] [address] [phone] CPK Creatine Phosphokinase 55 U/L Normal 26-19 2 Erythrocyte Sedimentation Rate 33 mm/hr High 0-30 C Reactive Protein Quantitativ 0.30 mg/dL Normal 0.00-0.30 Comprehensive Metabolic Profil 12/06/[address] [address] [phone] Glucose, Fasting 98 mg/dL Normal 70-100 Blood [...] Ratio 1.1 Low 1.2-2.2 Hemoglobin A1c 12/06/2020 [facility] nter [address] [place] [address] [phone] Hemoglobin A1c 5.5 % Normal 4 Estimated [...] Little GFR Left ESRD GFR <15 on SALES OPERATIONS MANAGER 4 REFERENCE RANGES: <=5.6% NORMAL 5.7-6.4% SUGGESTS IMPAIRED GLUCOSE META BOLISM/PREDIABETIC >= 6.5% ABNORMAL Procedures Date Code Description Status 05/20/2021 25641 Office/Outpatient Established Lo w MDM 20-29 Min Completed 05/07/2021 23027 Office/Outpatient Established Mo d MDM 30-39 Min Completed 04/09/2021 61204 Office/Outpatient Established Mo d MDM 30-39 Min Completed 02/28/2021 83273 Office/Outpatient Established Lo w MDM 20-29 Min Completed 02/17/2021 24444 Office/Outpatient Established Mo d MDM 30-39 Min Completed 01/01/2021 51400 Office/Outpatient Established Lo w MDM 20-29 Min Completed 12/18/2020 93395 Office/Outpatient Established Mo d MDM 30-39 Min Completed 12/04/2020 29484 Office/Outpatient Established Mo d MDM 30-39 Min Completed Medical Devices Description No Information Available Encounters Type Date Location Provider Dx Diagnosis Office Visit 05/20/2021 3:40p [facility] ELLIOT Christy J20.9 Acute bronchitis, unspecifie d Office Visit 05/07/2021 9:[facility]a [facility] ELLIOT Bo F41.1 Generalized anxiety disorder E78.5 Hyperlipidemia, unspecified K21.00 Gastro-esophageal reflux dis with esophagitis, without bleed J45.30 Mild persistent asthma, unco mplicated J30.9 Allergic rhinitis, unspecifi ed G43.009 Migraine w/o aura, not intra ctable, w/o status migrainosus Z79.01 assisted (current) use of a 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 Z12.31 Encntr screen mammogram for malignant neoplasm of breast K58.1 Irritable bowel syndrome wit h constipation Office Visit 04/09/2021 9:20a [facility] ELLIOT Bo F41.1 Generalized anxiety disorder E78.5 Hyperlipidemia, unspecified K21.00 Gastro-esophageal reflux dis with esophagitis, without bleed J45.30 Mild persistent asthma, unco mplicated J30.9 Allergic rhinitis, unspecifi ed G43.009 Migraine w/o aura, not intra ctable, w/o status migrainosus Z79.01 assisted (current) use of a 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 Office Visit 02/28/2021 1:20p [facility] ELLIOT Bo R05 Cough Office Visit 02/17/2021 9:20a Family 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 R73.01 Impaired fasting glucose Assessments Date Code Description Provider 05/20/2021 J20.9 Acute bronchitis, unspecified [place] ELLIOT Buckley 05/07/2021 F41.1 Generalized anxiety disorder ELLIOT Nick 05/07/2021 E78.5 Hyperlipidemia, unspecified ELLIOT Miller 05/07/2021 K21.00 Gastro-esophageal re flux disease with esophagitis, without bleeding ELLIOT Bo 05/07/2021 J45.30 Mild persistent asthma, uncompli cated ELLIOT Bo 05/07/2021 J30.9 Allergic rhinitis, unspecified Lilibeth ELLIOT Valentine 05/07/2021 G43.009 Migraine without aur a, not intractable, without status migrainosus ELLIOT Bo 05/07/2021 Z79.01 assisted (current) use of a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 [...] without status migrainosus ELLIOT Bo 04/09/2021 Z79.01 supervisor intermediates (current) use of a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 ELLIOT Bo 02/28/2021 R05 Cough ELLIOT Bo 02/17/2021 F41.1 Generalized anxiety disorder ELLIOT Nick 02/17/2021 E78.5 Hyperlipidemia, unspecified ELLIOT Miller 02/17/2021 K21.00 Gastro-esophageal re flux disease with esophagitis, without bleeding ELLIOT Bo 02/17/2021 Z79.01 assisted (current) use of a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 ELLIOT Bo 02/17/2021 K59.00 Constipation, unspecified ELLIOT Monreal 02/17/2021 N28.1 Cyst of kidney, acquired ELLIOT Bo 02/17/2021 J45.30 Mild persistent asthma, uncompli cated ELLIOT Bo 01/01/2021 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 ELLIOT Mena 01/01/2021 R05 Cough ELLIOT Bo 12/18/2020 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 ELLIOT Mena 12/18/2020 R05 Cough ELLIOT Bo 12/04/2020 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 Prednisone prescribed to help with tightness of your test. Respiratory panel pending Functional Status Description No Information Available Mental Status Description No Information Available Referrals Refer to Reason for Referral Status Appt Date Brandon Zambrano M.D. Corina has a history of GERD, IBS, abdominal bloating and chronic abdominal pain. She has seen Dr. Cristy Carrasco for the past several years. [facility], [address] [facility] [address] [facility] [address] [facility], [address] [place] [address] [phone] William Freed MD Corina has more frequent flaco rgic rhinitis noticed to be worse at home. She would like allergy testing. She has a history of asthma and follows [facility] with [facility]. [facility] [address], [place] [address] [phone] Jamie Mark MD routine follow up of lung condition. [facility] [address] [place] [address] [phone]
--- OUTSIDE RECORDS SUMMARY | 2021-06-08 10:04 | CCD | Continuity of Care Document ---
Author Author Corina CLARK PA Organization Unknown Address [address] [place] [address] 6 [address] [place] [address] Phone [phone] Care Team Providers Care Merchandising Execution Manager Name Role Phone Lakshmi Grajeda D.O. AUTM Jamie Mark MD AUTM [phone] Jose Ashley LCSW AUTM [phone] Staci Dickens MS AUTM [phone] [employer] AUTM [phone] Tanya Estes M.D. AUTM [phone] William Freed MD AUTM [phone] Brandon Weiss MD AUTM [phone] [facility] Home Health AUTM [phone] [facility] Homecare AUTM [phone] Problems Active Problems Provider Date Insomnia ELLIOT [...] disease with esophagitis ELLIOT Patrick Onset: 02/20/2020 Migraine without aura, not refractory ELLIOT Bo On set: 04/09/2021 Gastro-esophageal reflux disease with ulceration ELLIOT Ramirez Onset: 08/01/2020 Social History Type Date Description Comments Sex Unknown Tobacco Use Start: Unknown End: Quit Smoking Status Reviewed: 03/20/20 Quit ETOH Use Denies alcohol use Tobacco Use Start: Unknown End: Unknown Patient is a former smoker Recreational Drug Use Denies Drug Use Exercise Type/Frequency Does not exercise Sun Exposure Does not use sunscreen Seat Belt/Car Seat Always uses seat belt Allergies, Adverse Reactions, Alerts Active Allergies Criticality Reaction | Severity Comments [...] SIG Qnty Indications Ordering Provide r Date Xyzal Allergy 24HR 5mg Tablets 1 by mouth every day 90tabs J30.9 Lakshmi Grajeda D.O. 04/09 Hydrocodone Polistirex/Chlorpheniramine Polistirex 10- 8mg/5ML Suer take 1 teaspoon twice daily as needed for cough. 70ml R05 Duglas RodriguezO. 02/28/[address] 1 by mouth every day 90caps K29.61 Prema Rodriguez.ORahul 02/17 Advair HFA 45-21mcg/Act Aerosol two puffs twice daily for shortness of breath. Rinse and gargle with salt water or mouth wash after each use 8gm G93.3 Prema Rodriguez.O. 0 01/07/2021 Bath/Shower Seat With Back/Adjustable Misc use as needed for bathing and showering. 1units G93.3 Prema Rodriguez.O. 12/18/2020 Walker Wheels/Fixed With 8 Adjustment Ho les/5" Fixed 5" Misc prognosis: fair, duration: 99. 1units G93.3 Prema Forde.ORahul 12/18/2020 Xopenex HFA 45mcg/Act Aerosol 1-2 puffs every 4-6 hours 15gm Duglas RodriguezORahul 10/07 Depakote ER 250mg Tablets ER 24HR take one tablet by mouth each evening. G43.009 Lakshmi Yeb er, D.O. 10/01/2020 Maxalt 10mg Tablets take one tablet [...] mouth every 8 hours for pain istop: [id number] 60tabs M25.522 Duglas FordeORahul 08/01/2020 Cetirizine HCL 10mg Tablets 1 by mouth every day at bedtime 30tabs R09.82 Duglas RodriguezORahul 04/24/[address] 1 by mouth every day 90tabs Duglas RodriguezO. 02/19 [facility] Probiotic Capsules one capsule by mouth once per day 90caps Duglas PadillaO. 12/18/2019 Shingrix 50mcg/0.5ML Suspension Re c administer shingrix vaccine at pharmacy 1units Duglas MalaveORahul 06/27/2019 Fluticasone Propionate 50mcg/Act Suspension 2 spray each nostril once a day 16gm J06.9 Prema Gordon.O. 10/14/2018 Propylthiouracil 50mg Tablets 1 by mouth every day 90tabs Duglas RodriguezO. 08/18 Klonopin 1mg Tablets 1 tablet by mouth daily istop: [id number] 30tabs F41.1 Prema Rodriguez.O . 08/18/2017 Atorvastatin Calcium 40mg Tablets 1 tab by mouth daily 90tabs Prema Rodriguez.O. Vitamin D-3 1000Unit Capsules 1 by mouth every day 90caps Duglas RodriguezO. Calcium 600 600mg Tablets Unknown Warfarin Sodium 2.5mg Tablets 1 tab by mouth in the evening On Hold Rudy Andersen M.D . Metoprolol Succinate ER 25mg Tablets ER 24HR 1 by mouth every day Unknown /0 000 History Medications Benzonatate 100mg Capsules 1-2 by [...] daily as needed for cough. 70ml G93.3 Lakshmi Grajeda D.O. 12/18/2020 - 01/01/2021 Pulmicort Flexhaler 90mcg/Act Aero sumeet 2 puffs inhaled twice a day. rinse mouth out thoroughly afterwards 3units G93.3 Lakshmi Grajeda D.O. 12/04/2020 - 12/18/2020 Benzonatate 200mg Capsules take one capsule every 8 hours as needed to help control cough 45caps G93.3 Prema Rodriguez.O. 12/04/2020 - 12/18/2020 Immunizations CPT Code Status Date Vaccine Lot # U-Flu Given 04/05/2019 Influenza,Unspecified [id number] Given 04/05/2019 Pneumococcal Con jugate Vaccine 13 Valent For Intramuscular Use 79841 Given 06/09/2018 Influenza Virus Vaccine, Quadrivalent, Split, Preservative Free [id number] 26580 Given 06/09/2018 Pneumococcal Con jugate Vaccine 13 Valent For Intramuscular Use [id number] Vital Signs Date Vital Result Comment 04/09/2021 9:13am BP Systolic 128 mmHg BP Diastolic 78 mmHg Height 63.7 inches 5'3.70" Weight 152.38 lb BMI (Body Mass Index) 26.4 kg/m2 Heart Rate 84 /min Respiratory Rate 18 /min Body Temperature 98.4 F O2 % BldC Oximetry 98 % [place] Body Weight 115 lb 02/28/2021 1:32pm BP Systolic 140 mmHg BP Diastolic 78 mmHg Height 63.7 inches 5'3.70" Weight 149.12 lb BMI (Body Mass Index) 25.8 kg/m2 Heart Rate 72 /min Respiratory Rate 16 /min Body Temperature 97.6 F O2 % BldC Oximetry 98 % [place] Body Weight 115 lb Results Test Acquired Date Facility Test Result H/L Range Note Respiratory Panel 02/28/2021 [facility] nter [address] [place] [address] [phone] Respiratory Panel This respiratory <SEE NOTE> 1 CBC With Differential 12/06/[address] [address] [phone] White Blood Count 6.2 10 Normal 4.0-10.0 [...] 36.0-66.0 Lymph % 21.8 % Low 24.0-44.0 [place] % 7.1 % Normal 2.0-8.0 Eos % 2.9 % Normal 0.0-3.0 Baso % 0.8 % Normal 0.0-1.0 Immature Granulocyte % 0.3 % Normal 0-3.0 Nucleated Red Blood Cell % 0.0 % Normal 0-0 Neutrophils # 4.2 10 Normal 1.5-8.5 Lymph # 1.4 10 Low 1.5-5.0 [place] # 0.4 10 Normal 0.0-0.8 Eos # 0.2 10 Normal 0.0-0.5 Baso # 0.1 10 Normal 0.0-0.2 Laboratory test finding 12/06/[address] [address] [phone] CPK Creatine Phosphokinase 55 U/L Normal 26-19 2 Erythrocyte Sedimentation Rate 33 mm/hr High 0-30 C Reactive Protein Quantitativ 0.30 mg/dL Normal 0.00-0.30 Comprehensive Metabolic Profil 12/06/[address] [address] [phone] Glucose, Fasting 98 mg/dL Normal 70-100 Blood Urea Nitrogen 21 mg/dL High 7-18 Creatinine For GFR 0.94 mg/dL Normal 0.55-1.30 Glomerular Filtration Rate > 60.0 Normal >39 2 Sodium Level 140 mEq/L Normal 136-145 Potassium [...] Ratio 1.1 Low 1.2-2.2 Hemoglobin A1c 12/06/2020 [place] [id number] [phone] Hemoglobin A1c 5.5 % Normal 3 Estimated Average Glucose 111 mg/dL High 60-110 [...] (COVID 19) NEGATIVE - SARS-CoV-2 (COVID19) 2 Units are mL/min/1.73 m2 Chronic Kidney Disease Staging per NKF: Stage I & II GFR >=60 Normal to Mildly Decreased Stage III GFR 30-59 Moderately Decreased Stage IV GFR 15-29 Severely Decreased Stage V GFR <15 Very Little GFR Left ESRD GFR <15 on PHOTOENGRAVING APPRENTICE 3 REFERENCE RANGES: <=5.6% NORMAL 5.7-6.4% SUGGESTS IMPAIRED GLUCOSE META BOLISM/PREDIABETIC >= 6.5% ABNORMAL Procedures Date Code Description Status 04/09/2021 72013 Office/Outpatient Established Mo d MDM 30-39 Min Completed 02/28/2021 08331 Office/Outpatient Established Lo w MDM 20-29 Min Completed 02/17/2021 55691 Office/Outpatient Established Mo d MDM 30-39 Min Completed 01/01/2021 33021 Office/Outpatient Established Lo w MDM 20-29 Min Completed 12/18/2020 25086 Office/Outpatient Established Mo d MDM 30-39 Min Completed 12/04/2020 59370 Office/Outpatient Established Mo d MDM 30-39 Min Completed Medical Devices Description No Information Available Encounters Type Date Location Provider Dx Diagnosis Office Visit 04/09/2021 9:20a Family Medicine 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 R73.01 Impaired fasting glucose Assessments Date Code Description Provider 04/09/2021 F41.1 Generalized anxiety disorder ELLIOT Nick 04/09/2021 E78.5 Hyperlipidemia, unspecified ELLIOT Miller 04/09/2021 K21.00 Gastro-esophageal re flux disease with esophagitis, without bleeding ELLIOT Bo 04/09/2021 J45.30 Mild persistent asthma, uncompli cated ELLIOT Bo 04/09/2021 J30.9 Allergic rhinitis, unspecified M ELLIOT Valentine 04/09/2021 G43.009 Migraine without aur a, not intractable, without status migrainosus ELLIOT Bo 04/09/2021 Z79.01 retirement (current) use of a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 ELLIOT Bo 02/28/2021 R05 Cough ELLIOT Bo 02/17/2021 F41.1 Generalized anxiety disorder ELLIOT Nick 02/17/2021 E78.5 Hyperlipidemia, unspecified ELLIOT Miller 02/17/2021 K21.00 Gastro-esophageal re flux disease with esophagitis, without bleeding ELLIOT Bo 02/17/2021 Z79.01 retirement (current) use of a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 ELLIOT Bo 02/17/2021 K59.00 Constipation, unspecified ELLIOT Monreal 02/17/2021 N28.1 Cyst of kidney, acquired ELLIOT Bo 02/17/2021 J45.30 Mild persistent asthma, uncompli cated ELLIOT Bo 01/01/2021 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 ELLIOT Mena 01/01/2021 R05 ELLIOT Cruz 12/18/2020 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 ELLIOT Mena 12/18/2020 R05 Cough ELLIOT Bo 12/04/2020 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 She would like allergy testing. She has a history of asthma and [facility]. [facility] [address], [place] [address] [phone] Jamie Mark MD routine follow up of lung condition. [facility] [address] [place] [address] [phone]
--- OUTSIDE RECORDS SUMMARY | 2021-06-08 10:04 | CCD | Continuity of Care Document ---
Author Author Corina ROJAS PA Organization Unknown Address [place] [address] Phone [phone] Care Team Providers Care Expenditure Requisition Clerk Name Role Phone Lakshmi Grajeda D.O. AUTM Jamie Mark MD AUTM [phone] Jose Ashley LCSW AUTM [phone] Staci Dickens MS AUTM [phone] [employer] AUTM [phone] Tanya Estes M.D. AUTM [phone] William Freed MD AUTM [phone] [facility] AUTM [phone] [facility] AUTM [phone] [facility] Home[facility] AUTM [phone] Brandon Zambrano M.D. AUTM [phone] Problems Active Problems Provider Date Insomnia ELLIOT [...] tablet by mouth each evening. G43.009 Lakshmi eYb er, D.ORahul 10/01/2020 Maxalt 10mg Tablets take [...] mouth every 8 hours for pain istop: [id number] 60tabs M25.522 Prema Forde.O. 08/01/2020 Cetirizine HCL 10mg Tablets 1 by mouth every day at bedtime 30tabs R09.82 Prema Rodriguez.O. 04/24/[address] 1 by mouth every day 90tabs Prema Rodriguez.O. 02/19 [facility] Probiotic Capsules one capsule by mouth once per day 90caps Prema Padilla.O. 12/18/2019 Shingrix 50mcg/0.5ML Suspension Re c administer [facility]ingrix vaccine at [facility] Prema Malave.ORahul 06/27/2019 Fluticasone Propionate 50mcg/Act Suspension 2 spray each nostril once a day 16gm J06.9 Prema Gordon.O. 10/14/2018 Propylthiouracil 50mg Tablets 1 by mouth every day 90tabs Prema Rodriguez.O. 08/18 Klonopin 1mg Tablets 1 tablet by mouth daily istop: [id number] 30tabs F41.1 Duglas RodriguezO . 08/18/2017 Atorvastatin [...] Vaccine Lot # U-Flu Given 04/05/2019 Influenza,Unspecified 17190 Given 04/05/2019 Pneumococcal Con jugate Vaccine 13 Valent For Intramuscular Use 37370 Given 06/09/2018 Influenza Virus Vaccine, Quadrivalent, Split, Preservative Free [id number] 77189 Given 06/09/2018 Pneumococcal Con jugate Vaccine 13 Valent For Intramuscular Use [id number] Vital Signs Date Vital Result Comment 05/20/2021 3:36pm BP Systolic 138 mmHg BP Diastolic 76 mmHg Height 63.7 inches 5'3.70" Heart Rate 86 /min Respiratory Rate 20 /min Body Temperature 98.0 F O2 % BldC Oximetry 97 % [place] Body Weight 115 lb 05/07/2021 9:23am BP Systolic 138 mmHg BP Diastolic 76 mmHg Height 63.7 inches 5'3.70" Weight 153.38 lb BMI (Body Mass Index) 26.6 kg/m2 Heart Rate 82 /min Respiratory Rate 18 /min Body Temperature 98.4 F O2 % BldC Oximetry 97 % [place] Body Weight 115 lb Results Test Acquired Date Facility Test Result H/L Range Note Respiratory Panel 02/28/2021 [facility] nter [address] [place] [address] [phone] Respiratory Panel This respiratory <SEE NOTE> 1 CBC With Differential 12/06/[address] [address] [phone] White Blood Count 6.2 10 Normal 4.0-10.0 [...] 36.0-66.0 Lymph % 21.8 % Low 24.0-44.0 [place] % 7.1 % Normal 2.0-8.0 Eos % 2.9 % Normal 0.0-3.0 Baso % 0.8 % Normal 0.0-1.0 Immature Granulocyte % 0.3 % Normal 0-3.0 Nucleated Red Blood Cell % 0.0 % Normal 0-0 Neutrophils # 4.2 10 Normal 1.5-8.5 Lymph # 1.4 10 Low 1.5-5.0 [place] # 0.4 10 Normal 0.0-0.8 Eos # 0.2 10 Normal 0.0-0.5 Baso # 0.1 10 Normal 0.0-0.2 Laboratory test finding 12/06/[address] [address] [phone] CPK Creatine Phosphokinase 55 U/L Normal 26-19 2 Erythrocyte Sedimentation Rate 33 mm/hr High 0-30 C Reactive Protein Quantitativ 0.30 mg/dL Normal 0.00-0.30 Comprehensive Metabolic Profil 12/06/[address] [address] [phone] Glucose, Fasting 98 mg/dL Normal 70-100 Blood [...] Ratio 1.1 Low 1.2-2.2 Hemoglobin A1c 12/06/2020 [facility] nter [address] [place] [address] [phone] Hemoglobin A1c 5.5 % Normal 3 Estimated [...] Little GFR Left ESRD GFR <15 on [employer]ER 3 REFERENCE RANGES: <=5.6% NORMAL 5.7-6.4% SUGGESTS IMPAIRED GLUCOSE META BOLISM/PREDIABETIC >= 6.5% ABNORMAL Procedures Date Code Description Status 05/20/2021 23733 Office/Outpatient Established Lo w MDM 20-29 Min Completed 05/07/2021 90939 Office/Outpatient Established Mo d MDM 30-39 Min Completed 04/09/2021 34927 Office/Outpatient Established Mo d MDM 30-39 Min Completed 02/28/2021 42258 Office/Outpatient Established Lo w MDM 20-29 Min Completed 02/17/2021 60199 Office/Outpatient Established Mo d MDM 30-39 Min Completed 01/01/2021 88300 Office/Outpatient Established Lo w MDM 20-29 Min Completed 12/18/2020 85956 Office/Outpatient Established Mo d MDM 30-39 Min Completed 12/04/2020 25294 Office/Outpatient Established Mo d MDM 30-39 Min Completed Medical Devices Description No Information Available Encounters Type Date Location Provider Dx Diagnosis Office Visit 05/20/2021 3:40p [facility] ELLIOT Bo J20.9 Acute bronchitis, unspecifie d Office Visit 05/07/2021 9:30a [facility] ELLIOT Bo F41.1 Generalized anxiety disorder E78.5 Hyperlipidemia, unspecified K21.00 Gastro-esophageal reflux dis with esophagitis, without bleed J45.30 Mild persistent asthma, unco mplicated J30.9 Allergic rhinitis, unspecifi ed G43.009 Migraine w/o aura, not intra ctable, w/o status migrainosus 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 Z12.31 Encntr screen mammogram for malignant neoplasm of breast K58.1 Irritable bowel syndrome wit h constipation Office Visit 04/09/2021 9:20a [facility] ELLIOT Bo F41.1 Generalized anxiety disorder E78.5 Hyperlipidemia, unspecified K21.00 Gastro-esophageal reflux dis with esophagitis, without bleed J45.30 Mild persistent asthma, unco mplicated J30.9 Allergic rhinitis, unspecifi ed G43.009 Migraine w/o aura, not intra ctable, w/o status migrainosus Z79.01 half-way (current) use of a 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 Office Visit 02/28/2021 1:20p [facility] ELLIOT Bo R05 Cough Office Visit 02/17/2021 9:20a [facility] ELLIOT Bo F41.1 Generalized anxiety disorder E78.5 Hyperlipidemia, unspecified K21.00 Gastro-esophageal reflux dis with esophagitis, without bleed 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 K59.00 Constipation, unspecified N28.1 Cyst of kidney, acquired J45.30 Mild persistent asthma, unco mplicated Office Visit 01/01/2021 9:40a [facility] ELLIOT Bo 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 R05 Cough Office Visit 12/18/2020 9:20a [facility] ELLIOT Bo 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 R05 Cough Office Visit 12/04/2020 11:30a [facility] ELLIOT Bo 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 R73.01 [...] ELLIOT Bo 05/07/2021 J30.9 Allergic rhinitis, unspecified M ELLIOT Valentine 05/07/2021 G43.009 Migraine without aur a, not intractable, without status migrainosus ELLIOT Bo 05/07/2021 Z79.01 half-way (current) use of a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 ELLIOT Bo [...] without status migrainosus ELLIOT Bo 04/09/2021 Z79.01 half-way (current) use of a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 ELLIOT Bo 02/28/2021 R05 Cough ELLIOT Bo 02/17/2021 F41.1 Generalized anxiety disorder ELLIOT Nick 02/17/2021 E78.5 Hyperlipidemia, unspecified ELLIOT Miller 02/17/2021 K21.00 Gastro-esophageal re flux disease with esophagitis, without bleeding ELLIOT Bo 02/17/2021 Z79.01 half-way (current) use of a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 ELLIOT Bo 02/17/2021 K59.00 Constipation, unspecified ELLIOT Monreal 02/17/2021 N28.1 Cyst of kidney, acquired ELLIOT Bo 02/17/2021 J45.30 Mild persistent asthma, uncompli cated ELLIOT Bo 01/01/2021 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 ELLIOT Mena 01/01/2021 R05 Cough ELLIOT Bo 12/18/2020 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 ELLIOT Mena 12/18/2020 R05 Cough ELLIOT oB 12/04/2020 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 Prednisone prescribed to help with tightness of your test. Respiratory panel pending Functional Status Description No Information Available Mental Status Description No Information Available Referrals Refer to Dr Reason for Referral Status Appt Date Brandon Zambrano M.D. Corina has a history of GERD, IBS, abdominal bloating and chronic abdominal pain. She has seen Dr. Cristy Carrasco for the past several years. [facility], [address], [address] [place], [place] [address] [phone] William Freed MD Corina has more frequent flaco rgic rhinitis noticed to be worse at home. She would like allergy testing. She has a history of asthma and follows up with [facility]. [facility] [address], [place] [address] [phone] Jamie Mark MD routine follow up of lung condition. Clos ed [facility] [address] [place] [address] [phone]
--- OUTSIDE RECORDS SUMMARY | 2021-06-08 10:04 | CCD | Continuity of Care Document ---
Author Author Corina ROJAS PA Organization Unknown Address [place] [address] Phone [phone] Care Team Providers Care Blue Print Control Clerk Name Role Phone Lakshmi Grajeda D.O. AUTM Jamie Mark MD AUTM [phone] Jose Ashley LCSW AUTM [phone] Staci Dickens MS AUTM [phone] [employer] AUTM [phone] Tanya Estes M.D. AUTM [phone] William Freed MD AUTM [phone] [facility] Op[facility] AUTM [phone] [facility] Home [facility] AUTM [phone] [facility] Home[facility] AUTM [phone] Brandon Zambrano M.D. AUTM [phone] Problems Active Problems Provider Date Insomnia ELLIOT [...] mouth every 8 hours for pain istop: [id number] 60tabs M25.522 Prema Forde.O. 08/01/2020 Cetirizine HCL 10mg Tablets 1 by mouth every day at bedtime 30tabs R09.82 Prema Rodriguez.O. 04/24/[address] 1 by mouth every day 90tabs Prema Rodriguez.O. 02/19 [facility] Probiotic Capsules one capsule by mouth once per day 90caps Prema Padilla.O. 12/18/2019 Shingrix 50mcg/0.5ML Suspension Re c [facility] Prema Malave.ORahul 06/27/2019 Fluticasone Propionate 50mcg/Act Suspension 2 spray each nostril once a day 16gm J06.9 Prema Gordon.O. 10/14/2018 Propylthiouracil 50mg Tablets 1 by mouth every day 90tabs Prema Rodriguez.O. 08/18 Klonopin 1mg Tablets 1 tablet by mouth daily istop: [id number] 30tabs F41.1 Duglas RodriguezO . 08/18/2017 Atorvastatin [...] Vaccine Lot # U-Flu Given 04/05/2019 Influenza,Unspecified 28528 Given 04/05/2019 Pneumococcal Con jugate Vaccine 13 Valent For Intramuscular Use 49581 Given 06/09/2018 Influenza Virus Vaccine, Quadrivalent, Split, Preservative Free [id number] 22294 Given 06/09/2018 Pneumococcal Con jugate Vaccine 13 Valent For Intramuscular Use [id number] Vital Signs Date Vital Result Comment 05/20/2021 3:36pm BP Systolic 138 mmHg BP Diastolic 76 mmHg Height 63.7 inches 5'3.70" Heart Rate 86 /min Respiratory Rate 20 /min Body Temperature 98.0 F O2 % BldC Oximetry 97 % [place] Body Weight 115 lb 05/07/2021 9:23am BP Systolic 138 mmHg BP Diastolic 76 mmHg Height 63.7 inches 5'3.70" Weight 153.38 lb BMI (Body Mass Index) 26.6 kg/m2 Heart Rate 82 /min Respiratory Rate 18 /min Body Temperature 98.4 F O2 % BldC Oximetry 97 % [place] Body Weight 115 lb Results Test Acquired Date Facility Test Result H/L Range Note Respiratory Panel 02/28/2021 [facility] nter [address] [place] [address] [phone] Respiratory Panel This respiratory <SEE NOTE> 1 CBC With Differential 12/06/[address] [address] [phone] White Blood Count 6.2 10 Normal 4.0-10.0 [...] 36.0-66.0 Lymph % 21.8 % Low 24.0-44.0 [place] % 7.1 % Normal 2.0-8.0 Eos % 2.9 % Normal 0.0-3.0 Baso % 0.8 % Normal 0.0-1.0 Immature Granulocyte % 0.3 % Normal 0-3.0 Nucleated Red Blood Cell % 0.0 % Normal 0-0 Neutrophils # 4.2 10 Normal 1.5-8.5 Lymph # 1.4 10 Low 1.5-5.0 [place] # 0.4 10 Normal 0.0-0.8 Eos # 0.2 10 Normal 0.0-0.5 Baso # 0.1 10 Normal 0.0-0.2 Laboratory test finding 12/06/[address] [address] [phone] CPK Creatine Phosphokinase 55 U/L Normal 26-19 2 Erythrocyte Sedimentation Rate 33 mm/hr High 0-30 C Reactive Protein Quantitativ 0.30 mg/dL Normal 0.00-0.30 Comprehensive Metabolic Profil 12/06/[address] [address] [phone] Glucose, Fasting 98 mg/dL Normal 70-100 Blood [...] Ratio 1.1 Low 1.2-2.2 Hemoglobin A1c 12/06/2020 [facility] nter [address] [place] [address] [phone] Hemoglobin A1c 5.5 % Normal 3 Estimated [...] Little GFR Left ESRD 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 <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 3 REFERENCE RANGES: <=5.6% NORMAL 5.7-6.4% SUGGESTS IMPAIRED GLUCOSE META BOLISM/PREDIABETIC >= 6.5% ABNORMAL Procedures Date Code Description Status 05/20/2021 47863 Office/Outpatient Established Lo w MDM 20-29 Min Completed 05/07/2021 36811 Office/Outpatient Established Mo d MDM 30-39 Min Completed 04/09/2021 15069 Office/Outpatient Established Mo d MDM 30-39 Min Completed 02/28/2021 13290 Office/Outpatient Established Lo w MDM 20-29 Min Completed 02/17/2021 07457 Office/Outpatient Established Mo d MDM 30-39 Min Completed 01/01/2021 64639 Office/Outpatient Established Lo w MDM 20-29 Min Completed 12/18/2020 61951 Office/Outpatient Established Mo d MDM 30-39 Min Completed 12/04/2020 03536 Office/Outpatient Established Mo d MDM 30-39 Min Completed Medical Devices Description No Information Available Encounters Type Date Location Provider Dx Diagnosis Office Visit 05/20/2021 3:40p [facility] ELLIOT Bo J20.9 Acute bronchitis, unspecifie d Office Visit 05/07/2021 9:30a [facility] ELLIOT oB F41.1 Generalized anxiety disorder E78.5 Hyperlipidemia, unspecified K21.00 Gastro-esophageal reflux dis with esophagitis, without bleed J45.30 Mild persistent asthma, unco mplicated J30.9 Allergic rhinitis, unspecifi ed G43.009 Migraine w/o aura, not intra ctable, w/o status migrainosus 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 Z12.31 Encntr screen mammogram for malignant neoplasm of breast K58.1 Irritable bowel syndrome wit h constipation Office Visit 04/09/2021 9:20a [facility] ELLIOT Bo F41.1 Generalized anxiety disorder E78.5 Hyperlipidemia, unspecified K21.00 Gastro-esophageal reflux dis with esophagitis, without bleed J45.30 Mild persistent asthma, unco mplicated J30.9 Allergic rhinitis, unspecifi ed G43.009 Migraine w/o aura, not intra ctable, w/o status migrainosus Z79.01 senior living (current) use of a 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 Office Visit 02/28/2021 1:20p [facility] ELLIOT Bo R05 Cough Office Visit 02/17/2021 9:20a [facility] ELLIOT Bo F41.1 Generalized anxiety disorder E78.5 Hyperlipidemia, unspecified K21.00 Gastro-esophageal reflux dis with esophagitis, without bleed 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 K59.00 Constipation, unspecified N28.1 Cyst of kidney, acquired J45.30 Mild persistent asthma, unco mplicated Office Visit 01/01/2021 9:40a [facility] ELLIOT Bo 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 R05 Cough Office Visit 12/18/2020 9:20a [facility] ELLIOT Bo 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 R05 Cough Office Visit 12/04/2020 11:30a [facility] ELLIOT Bo 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 R73.01 [...] without status migrainosus ELLIOT Bo 05/07/2021 Z79.01 senior living (current) use of a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 ELLIOT Bo [...] without status migrainosus ELLIOT Bo 04/09/2021 Z79.01 senior living (current) use of a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 ELLIOT Bo 02/28/2021 R05 Cough ELLIOT Bo 02/17/2021 F41.1 Generalized anxiety disorder ELLIOT Nick 02/17/2021 E78.5 Hyperlipidemia, unspecified ELLIOT Miller 02/17/2021 K21.00 Gastro-esophageal re flux disease with esophagitis, without bleeding ELLIOT Bo 02/17/2021 Z79.01 senior living (current) use of a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 ELLIOT Bo [...] ELLIOT Bo at [facility] 05/20/2021 - ELLIOT Bo* J20.9 Acute bronchitis, [...] Carrasco for the past several years. [facility], [address], [address] [place], [place] [address] [phone] William Freed MD Corina has more frequent flaco rgic rhinitis noticed to be worse at home. She would like allergy testing. She has a history of asthma and follows up with [facility]. [facility] [address], [place] [address] [phone] Jamie Mark MD routine follow up of lung condition. Clos ed [facility] [address] [place] [address] [phone]
--- OUTSIDE RECORDS SUMMARY | 2021-06-08 10:04 | CCD | Continuity of Care Document ---
Author Author Corina ROJAS PA Organization Unknown Address [place] [address] Phone [phone] Care Team Providers Care Shoe Designer Name Role Phone Lakshmi Grajeda D.O. AUTM Jamie Mark MD AUTM [phone] Jose Ashley LCSW AUTM [phone] Staci Dickens MS AUTM [phone] [employer] AUTM [phone] Tanya Estes M.D. AUTM [phone] William Freed MD AUTM [phone] Brandon Weiss MD AUTM [phone] [facility] AUTM [phone] [facility] AUTM [phone] Brandon Zambrano M.D. AUTM [phone] Problems Active Problems Provider Date Insomnia ELLIOT [...] Aerosol 1-2 puffs every 4-6 hours 15gm Prema Rodriguez.ORahul 10/07 Depakote ER 250mg Tablets ER 24HR take one tablet by mouth each evening. G43.009 Lakshmi Dueñas er, Prema.ORahul 10/01/2020 Maxalt 10mg Tablets take one tablet by mouth at the start of headache and repeat in 2 hours if needed 30tabs G43.009 Duglas RodriguezORahul 10/01/2020 Montelukast Sodium 10mg Tablets 1 by mouth every day 90tabs R05 Prema Rodriguez.ORahul 10/01 Linzess 145mcg Capsules 1 capsule by mouth daily on an empty stomach in the in the morning 90caps rPema Rodriguez.ORahul 08/01/2020 Tramadol HCL 50mg Tablets take one tablet by mouth every 8 hours for pain istop: [id number] 60tabs M25.522 Duglas FordeORahul 08/01/2020 Cetirizine HCL 10mg Tablets 1 by mouth every day at bedtime 30tabs R09.82 Prema Rodriguez.O. 04/24/[address] 1 by mouth every day 90tabs Prema Rodriguez.O. 02/19 [facility] Probiotic Capsules one capsule by mouth once per day 90caps Prema Padilla.ORahul 12/18/2019 Shingrix 50mcg/0.5ML Suspension Re c administer shingrix vaccine at pharmacy 1units Prema Malave.O. 06/27/2019 Fluticasone Propionate 50mcg/Act Suspension 2 spray each nostril once a day 16gm J06.9 Prema Gordon.O. 10/14/2018 Propylthiouracil 50mg Tablets 1 by mouth every day 90tabs Prema Rodriguez.ORahul 08/18 Klonopin 1mg Tablets 1 tablet by mouth daily istop: [id number] 30tabs F41.1 Prema Rodriguez.O . 08/18/2017 Atorvastatin [...] every day 90tabs Prema Rodriguez.O. History Medications Benzonatate 100mg Capsules 1-2 by [...] rinse mouth out thoroughly afterwards 3units G93.3 Prema Rodriguez.O. 12/04/2020 - 12/18/2020 Benzonatate 200mg Capsules take one capsule every 8 hours as needed to help control cough 45caps G93.3 Prema Rodriguez.O. 12/04/2020 - 12/18/2020 Immunizations CPT Code Status Date Vaccine Lot # U-Flu Given 04/05/2019 Influenza,Unspecified 11326 Given 04/05/2019 Pneumococcal Con jugate Vaccine 13 Valent For Intramuscular Use 14823 Given 06/09/2018 Influenza Virus Vaccine, Quadrivalent, Split, Preservative Free [id number] 08148 Given 06/09/2018 Pneumococcal Con jugate Vaccine 13 Valent For Intramuscular Use [id number] Vital Signs Date Vital Result Comment 05/07/2021 9:23am BP Systolic 138 mmHg BP Diastolic 76 mmHg Height 63.7 inches 5'3.70" Weight 153.38 lb BMI (Body Mass Index) 26.6 kg/m2 Heart Rate 82 /min Respiratory Rate 18 /min Body Temperature 98.4 F O2 % BldC Oximetry 97 % [place] Body Weight 115 lb 04/09/2021 9:13am BP Systolic 128 mmHg BP Diastolic 78 mmHg Height 63.7 inches 5'3.70" Weight 152.38 lb BMI (Body Mass Index) 26.4 kg/m2 Heart Rate 84 /min Respiratory Rate 18 /min Body Temperature 98.4 F O2 % BldC Oximetry 98 % [place] Body Weight 115 lb Results Test Acquired Date Facility Test Result H/L Range Note Respiratory Panel 02/28/2021 [facility] nter [address] [place] [address] [phone] Respiratory Panel This respiratory <SEE NOTE> 1 CBC With Differential 12/06/[address] [address] [phone] White Blood Count 6.2 10 Normal 4.0-10.0 [...] 36.0-66.0 Lymph % 21.8 % Low 24.0-44.0 [place] % 7.1 % Normal 2.0-8.0 Eos % 2.9 % Normal 0.0-3.0 Baso % 0.8 % Normal 0.0-1.0 Immature Granulocyte % 0.3 % Normal 0-3.0 Nucleated Red Blood Cell % 0.0 % Normal 0-0 Neutrophils # 4.2 10 Normal 1.5-8.5 Lymph # 1.4 10 Low 1.5-5.0 [place] # 0.4 10 Normal 0.0-0.8 Eos # 0.2 10 Normal 0.0-0.5 Baso # 0.1 10 Normal 0.0-0.2 Laboratory test finding 12/06/[address] [address] [phone] CPK Creatine Phosphokinase 55 U/L Normal 26-19 2 Erythrocyte Sedimentation Rate 33 mm/hr High 0-30 C Reactive Protein Quantitativ 0.30 mg/dL Normal 0.00-0.30 Comprehensive Metabolic Profil 12/06/2020 [address] [place] [address] [phone] Glucose, Fasting 98 mg/dL Normal 70-100 Blood [...] Ratio 1.1 Low 1.2-2.2 Hemoglobin A1c 12/06/2020 [facility] [place]ter [address] [place] [address] [phone] Hemoglobin A1c 5.5 % Normal 3 Estimated [...] Little GFR Left ESRD GFR <15 on WAYBILL CLERK 3 REFERENCE RANGES: <=5.6% NORMAL 5.7-6.4% SUGGESTS IMPAIRED GLUCOSE META BOLISM/PREDIABETIC >= 6.5% ABNORMAL Procedures Date Code Description Status 05/07/2021 68114 Office/Outpatient Established Mo d MDM 30-39 Min Completed 04/09/2021 60941 Office/Outpatient Established Mo d MDM 30-39 Min Completed 02/28/2021 73181 Office/Outpatient Established Lo w MDM 20-29 Min Completed 02/17/2021 90714 Office/Outpatient Established Mo d MDM 30-39 Min Completed 01/01/2021 00675 Office/Outpatient Established Lo w MDM 20-29 Min Completed 12/18/2020 29433 Office/Outpatient Established Mo d MDM 30-39 Min Completed 12/04/2020 30631 Office/Outpatient Established Mo d MDM 30-39 Min Completed Medical Devices Description No Information Available Encounters Type Date Location Provider Dx Diagnosis Office Visit 05/07/2021 9:30a [facility] ELLIOT Bo F41.1 Generalized anxiety disorder E78.5 Hyperlipidemia, unspecified K21.00 Gastro-esophageal reflux dis with esophagitis, without bleed J45.30 Mild persistent asthma, unco mplicated J30.9 Allergic rhinitis, unspecifi ed G43.009 Migraine w/o aura, not intra ctable, w/o status migrainosus Z79.01 shelter (current) use of a 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 Z12.31 Encntr screen mammogram for malignant neoplasm of breast K58.1 Irritable bowel syndrome wit h constipation Office Visit 04/09/2021 9:20a [facility] ELLIOT Bo F41.1 Generalized anxiety disorder E78.5 Hyperlipidemia, unspecified K21.00 Gastro-esophageal reflux dis with esophagitis, without bleed J45.30 Mild persistent asthma, unco mplicated J30.9 Allergic rhinitis, unspecifi ed G43.009 Migraine w/o aura, not intra ctable, w/o status migrainosus 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 Office Visit 02/28/2021 1:20p Family [facility] ELLIOT Bo R05 Cough Office Visit 02/17/2021 9:20a Family [facility] ELLIOT Bo F41.1 Generalized anxiety disorder E78.5 Hyperlipidemia, unspecified K21.00 Gastro-esophageal reflux dis with esophagitis, without bleed Z79.01 shelter (current) use of a 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 K59.00 Constipation, unspecified N28.1 Cyst of kidney, acquired J45.30 Mild persistent asthma, unco mplicated Office Visit 01/01/2021 9:40a Family [facility] ELLIOT Bo 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 R05 Cough Office Visit 12/18/2020 9:20a [facility] ELLIOT Bo 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 R05 Cough Office Visit 12/04/2020 11:30a [facility] ELLIOT Bo 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 R73.01 Impaired fasting glucose Assessments Date Code Description Provider 05/07/2021 F41.1 Generalized anxiety disorder ELLIOT Nick 05/07/2021 E78.5 Hyperlipidemia, unspecified ELLIOT Miller 05/07/2021 K21.00 Gastro-esophageal re flux disease with esophagitis, without bleeding ELLIOT Bo 05/07/2021 J45.30 Mild persistent asthma, uncompli cated ELLIOT Bo 05/07/2021 J30.9 Allergic rhinitis, unspecified M ELLIOT Valentine 05/07/2021 G43.009 Migraine without aur a, not intractable, without status migrainosus ELLIOT Bo 05/07/2021 Z79.01 shelter (current) use of a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 ELLIOT Bo 05/07/2021 Z12.31 Encounter for screen ing mammogram for malignant neoplasm of breast ELLIOT Bo 05/07/2021 K58.1 Irritable bowel syndrome with co nstipation ELLIOT Bo 04/09/2021 F41.1 Generalized anxiety disorder ELLIOT Nick 04/09/2021 E78.5 Hyperlipidemia, unspecified ELLIOT Miller 04/09/2021 K21.00 Gastro-esophageal re flux disease with esophagitis, without bleeding ELLIOT oB 04/09/2021 J45.30 Mild persistent asthma, uncompli cated ELLIOT Bo 04/09/2021 J30.9 Allergic rhinitis, unspecified M ELLIOT Valentine 04/09/2021 G43.009 Migraine without aur a, not intractable, without status migrainosus ELLIOT Bo 04/09/2021 Z79.01 parts counterman (current) use of a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 ELLIOT Bo 02/28/2021 R05 Cough ELLIOT Bo 02/17/2021 F41.1 Generalized anxiety disorder Jose ELLIOT Hsieh 02/17/2021 E78.5 Hyperlipidemia, unspecified ELLIOT Miller 02/17/2021 K21.00 Gastro-esophageal re flux disease with esophagitis, without bleeding ELLIOT Bo 02/17/2021 Z79.01 parts counterman (current) use of a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 ELLIOT Bo 02/17/2021 K59.00 Constipation, unspecified Nathanneil ELLIOT Aguero 02/17/2021 N28.1 Cyst of kidney, acquired ELLIOT [...] 08/12/2021 9:20 am - ELLIOT Bo at [facility] Functional Status Description No Information Available Mental Status Description No Information Available Referrals Refer to Reason for Referral Status Appt Date Brandon Zambrano M.D. Corina has a history of GERD, IBS, abdominal bloating and chronic abdominal pain. She has seen Dr. Cristy Carrasco for the past several years. Sent [facility], [address], [address] [place], [place] [address] [phone] William Freed MD Corina has more frequent flaco rgic rhinitis noticed to be worse at home. She would like allergy testing. She has a history of asthma and follows up with [facility]. [facility] [address], [place] [address] [phone] Jamie Mark MD routine follow up of lung condition. Sent [facility] [address] [place] [address] [phone]
--- OUTSIDE RECORDS SUMMARY | 2021-06-08 10:04 | CCD | Continuity of Care Document ---
Author Author Corina ROJAS PA Organization Unknown Address [place] [address] Phone [phone] Care Team Providers Care Director Of Catering Sales Name Role Phone Lakshmi Grajeda D.O. AUTM Jamie Mark MD AUTM [phone] Jose Ashley LCSW AUTM [phone] Staci Dickens MS AUTM [phone] [employer] AUTM [phone] Tanya Estes M.D. AUTM [phone] William Freed MD AUTM [phone] [facility] AUTM [phone] [facility] AUTM [phone] [facility] AUTM [phone] Brandon Zambrano M.D. AUTM [phone] Problems Active Problems Provider Date Insomnia ELLIOT [...] mouth every 8 hours for pain istop: [id number] 60tabs M25.522 Prema Forde.O. 08/01/2020 Cetirizine HCL 10mg Tablets 1 by mouth every day at bedtime 30tabs R09.82 Prema Rodriguez.O. 04/24/[address] 1 by mouth every day 90tabs Prema Rodriguez.O. 02/19 [facility] Probiotic Capsules one capsule by mouth once per day 90caps Prema Padilla.O. 12/18/2019 Shingrix 50mcg/0.5ML Suspension Re c [facility] Prema Malave.ORahul 06/27/2019 Fluticasone Propionate 50mcg/Act Suspension 2 spray each nostril once a day 16gm J06.9 Prema Gordon.O. 10/14/2018 Propylthiouracil 50mg Tablets 1 by mouth every day 90tabs Prema Rodriguez.O. 08/18 Klonopin 1mg Tablets 1 tablet by mouth daily istop: [id number] 30tabs F41.1 Duglas RodriguezO . 08/18/2017 Atorvastatin [...] Vaccine Lot # U-Flu Given 04/05/2019 Influenza,Unspecified 43638 Given 04/05/2019 Pneumococcal Con jugate Vaccine 13 Valent For Intramuscular Use 88505 Given 06/09/2018 Influenza Virus Vaccine, Quadrivalent, Split, Preservative Free [id number] 16838 Given 06/09/2018 Pneumococcal Con jugate Vaccine 13 Valent For Intramuscular Use [id number] Vital Signs Date Vital Result Comment 05/20/2021 3:36pm BP Systolic 138 mmHg BP Diastolic 76 mmHg Height 63.7 inches 5'3.70" Heart Rate 86 /min Respiratory Rate 20 /min Body Temperature 98.0 F O2 % BldC Oximetry 97 % [place] Body Weight 115 lb 05/07/2021 9:23am BP Systolic 138 mmHg BP Diastolic 76 mmHg Height 63.7 inches 5'3.70" Weight 153.38 lb BMI (Body Mass Index) 26.6 kg/m2 Heart Rate 82 /min Respiratory Rate 18 /min Body Temperature 98.4 F O2 % BldC Oximetry 97 % [place] Body Weight 115 lb Results Test Acquired Date Facility Test Result H/L Range Note Respiratory Panel 02/28/2021 [facility] nter [address] [place] [address] [phone] Respiratory Panel This respiratory <SEE NOTE> 1 CBC With Differential 12/06/[address] [address] [phone] White Blood Count 6.2 10 Normal 4.0-10.0 [...] 36.0-66.0 Lymph % 21.8 % Low 24.0-44.0 [place] % 7.1 % Normal 2.0-8.0 Eos % 2.9 % Normal 0.0-3.0 Baso % 0.8 % Normal 0.0-1.0 Immature Granulocyte % 0.3 % Normal 0-3.0 Nucleated Red Blood Cell % 0.0 % Normal 0-0 Neutrophils # 4.2 10 Normal 1.5-8.5 Lymph # 1.4 10 Low 1.5-5.0 [place] # 0.4 10 Normal 0.0-0.8 Eos # 0.2 10 Normal 0.0-0.5 Baso # 0.1 10 Normal 0.0-0.2 Laboratory test finding 12/06/[address] [address] [phone] CPK Creatine Phosphokinase 55 U/L Normal 26-19 2 Erythrocyte Sedimentation Rate 33 mm/hr High 0-30 C Reactive Protein Quantitativ 0.30 mg/dL Normal 0.00-0.30 Comprehensive Metabolic Profil 12/06/[address] [address] [phone] Glucose, Fasting 98 mg/dL Normal 70-100 Blood [...] Ratio 1.1 Low 1.2-2.2 Hemoglobin A1c 12/06/2020 [facility] nter [address] [place] [address] [phone] Hemoglobin A1c 5.5 % Normal 3 Estimated [...] Little GFR Left ESRD GFR <[address] DES[address] DRAFTSPERSON 3 REFERENCE RANGES: <=5.6% NORMAL 5.7-6.4% SUGGESTS IMPAIRED GLUCOSE META BOLISM/PREDIABETIC >= 6.5% ABNORMAL Procedures Date Code Description Status 05/20/2021 85737 Office/Outpatient Established Lo w MDM 20-29 Min Completed 05/07/2021 68265 Office/Outpatient Established Mo d MDM 30-39 Min Completed 04/09/2021 03362 Office/Outpatient Established Mo d MDM 30-39 Min Completed 02/28/2021 31273 Office/Outpatient Established Lo w MDM 20-29 Min Completed 02/17/2021 75841 Office/Outpatient Established Mo d MDM 30-39 Min Completed 01/01/2021 29074 Office/Outpatient Established Lo w MDM 20-29 Min Completed 12/18/2020 39998 Office/Outpatient Established Mo d MDM 30-39 Min Completed 12/04/2020 98613 Office/Outpatient Established Mo d MDM 30-39 Min Completed Medical Devices Description No Information Available Encounters Type Date Location Provider Dx Diagnosis Office Visit 05/20/2021 3:40p Family Medicine [facility] ELLIOT Bo J20.9 Acute bronchitis, unspecifie d Office Visit 05/07/2021 9:30a Family Medicine [facility] ELLIOT Bo F41.1 Generalized anxiety disorder E78.5 Hyperlipidemia, unspecified K21.00 Gastro-esophageal reflux dis with esophagitis, without bleed J45.30 Mild persistent asthma, unco mplicated J30.9 Allergic rhinitis, unspecifi ed G43.009 Migraine w/o aura, not intra ctable, w/o status migrainosus 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 Z12.31 Encntr screen mammogram for malignant neoplasm of breast K58.1 Irritable bowel syndrome wit h constipation Office Visit 04/09/2021 9:20a Family Medicine [facility] ELLIOT Bo F41.1 Generalized anxiety disorder E78.5 Hyperlipidemia, unspecified K21.00 Gastro-esophageal reflux dis with esophagitis, without bleed J45.30 Mild persistent asthma, unco mplicated J30.9 Allergic rhinitis, unspecifi ed G43.009 Migraine w/o aura, not intra ctable, w/o status migrainosus Z79.01 skilled nursing (current) use of a 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 Office Visit 02/28/2021 1:20p Family Medicine [facility] ELLIOT Bo R05 Cough Office Visit 02/17/2021 9:20a [facility] ELLIOT Bo F41.1 Generalized anxiety disorder E78.5 Hyperlipidemia, unspecified K21.00 Gastro-esophageal reflux dis with esophagitis, without bleed 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 K59.00 Constipation, unspecified N28.1 Cyst of kidney, acquired J45.30 Mild persistent asthma, unco mplicated Office Visit 01/01/2021 9:40a Family Medicine [facility] ELLIOT Bo 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 R05 Cough Office Visit 12/18/2020 9:20a [facility] ELLIOT Bo 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 R05 Cough Office Visit 12/04/2020 11:30a [facility] ELLIOT Bo 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 [...] without status migrainosus ELLIOT Bo 05/07/2021 Z79.01 skilled nursing (current) use of a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 ELLIOT Bo [...] without status migrainosus ELLIOT Bo 04/09/2021 Z79.01 skilled nursing (current) use of a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 ELLIOT Bo 02/28/2021 R05 Cough ELLIOT Bo 02/17/2021 F41.1 Generalized anxiety disorder ELLIOT Nick 02/17/2021 E78.5 Hyperlipidemia, unspecified ELLIOT Miller 02/17/2021 K21.00 Gastro-esophageal re flux disease with esophagitis, without bleeding ELLIOT Bo 02/17/2021 Z79.01 skilled nursing (current) use of a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 ELLIOT Bo [...] 08/12/2021 9:20 am - ELLIOT Bo at [facility] 05/20/2021 - ELLIOT Bo* J20.9 Acute [...] Carrasco for the past several years. Sent [facility], [address], [address] [place], [place] [address] [phone] William Freed MD Corina has more frequent flaco rgic rhinitis noticed to be worse at home. She would like allergy testing. She has a history of asthma and follows up with [facility]. [facility] [address], [place] [address] [phone] Jamie Mark MD routine follow up of lung condition. [facility] [address] [place] [address] [phone]
--- OUTSIDE RECORDS SUMMARY | 2021-06-08 10:04 | CCD | Continuity of Care Document ---
Author Author Corina ROJAS PA Organization Unknown Address [place] [address] Phone [phone] Care Team Providers Care Top Lift Compressor Name Role Phone Lakshmi Grajeda D.O. AUTM Jamie Mark MD AUTM [phone] Jose Ashley LCSW AUTM [phone] Staci Dickens MS AUTM [phone] [employer] AUTM [phone] Tanya Estes M.D. 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 02/19 [facility] Probiotic Capsules one [...] Tablets 1 tablet by mouth daily istop: [id number] 30tabs F41.1 Prema Rodriguez.O . 08/18/2017 Atorvastatin [...] Vaccine Lot # U-Flu Given 04/05/2019 Influenza,Unspecified 25043 Given 04/05/2019 Pneumococcal Con jugate Vaccine 13 Valent For Intramuscular Use 07842 Given 06/09/2018 Influenza Virus Vaccine, Quadrivalent, Split, Preservative Free [id number] Given 06/09/2018 Pneumococcal Con jugate Vaccine 13 Valent For Intramuscular Use [id number] Vital Signs Date Vital Result Comment 04/09/2021 9:13am BP Systolic 128 mmHg BP Diastolic 78 mmHg Height 63.7 inches 5'3.70" Weight 152.38 lb BMI (Body Mass Index) 26.4 kg/m2 Heart Rate 84 /min Respiratory Rate 18 /min Body Temperature 98.4 F O2 % BldC Oximetry 98 % [place] Body Weight 115 lb 02/28/2021 1:32pm BP Systolic 140 mmHg BP Diastolic 78 mmHg Height 63.7 inches 5'3.70" Weight 149.12 lb BMI (Body Mass Index) 25.8 kg/m2 Heart Rate 72 /min Respiratory Rate 16 /min Body Temperature 97.6 F O2 % BldC Oximetry 98 % [place] Body Weight 115 lb Results Test Acquired Date Facility Test Result H/L Range Note Respiratory Panel 02/28/2021 [facility] nter [address] [place] [address] [phone] Respiratory Panel This respiratory <SEE NOTE> 1 CBC With Differential 12/06/[address] [address] [phone] White Blood Count 6.2 10 Normal 4.0-10.0 [...] 36.0-66.0 Lymph % 21.8 % Low 24.0-44.0 [place] % 7.1 % Normal 2.0-8.0 Eos % 2.9 % Normal 0.0-3.0 Baso % 0.8 % Normal 0.0-1.0 Immature Granulocyte % 0.3 % Normal 0-3.0 Nucleated Red Blood Cell % 0.0 % Normal 0-0 Neutrophils # 4.2 10 Normal 1.5-8.5 Lymph # 1.4 10 Low 1.5-5.0 [place] # 0.4 10 Normal 0.0-0.8 Eos # 0.2 10 Normal 0.0-0.5 Baso # 0.1 10 Normal 0.0-0.2 Laboratory test finding 12/06/[address] [address] [phone] CPK Creatine Phosphokinase 55 U/L Normal 26-19 2 Erythrocyte Sedimentation Rate 33 mm/hr High 0-30 C Reactive Protein Quantitativ 0.30 mg/dL Normal 0.00-0.30 Comprehensive Metabolic Profil 12/06/[address] [address] [phone] Glucose, Fasting 98 mg/dL Normal 70-100 Blood [...] Ratio 1.1 Low 1.2-2.2 Hemoglobin A1c 12/06/2020 [facility] nter [address] [place] [address] [phone] Hemoglobin A1c 5.5 % Normal 3 Estimated Average Glucose 111 mg/dL High 60-110 Venous Blood Gas 10/09/2020 [facility] Outpatient Testi ng (Registration) [address] [place] [address] [phone] Venous PH 7.386 units Normal 7.330-7.430 Venous Partial Pressure Co2 49.8 mmHg Normal 38.0-50.0 Venous Partial Pressure O2 38.2 mmHg Normal 30.0-50.0 Venous Total Co2 30.7 mEq/L High 24.0-28.0 Venous Hco3 29.2 mEq/L High 23.0-27.0 Venous Base Excess 3.2 High -2.0-2.0 Venous Standard Hco3 26.7 mEq/L Normal Venous O2 Saturation 71.8 % Normal 60.0-80.0 CBC With Differential 10/09/2020 [facility] Outpatient Bridget ting (Registration) [address] [place] [address] [phone] White Blood Count 7.5 10 Normal 4.0-10.0 Red Blood Count 4.72 10 Normal 4.00-5.40 Hemoglobin 13.5 g/dL Normal 12.0-15.5 Hematocrit 41.5 % Normal 36.0-47.0 Mean Corpuscular Volume 87.9 fl Normal 80.0-96.0 Mean Corpuscular Hemoglobin 28.6 pg Normal 27.0-33.0 Mean Corpuscular HGB Conc 32.5 g/dL Normal 32.0-36.5 Red Cell Distribution Width 13.7 % Normal 11.5-14.5 Platelet Count, Automated 233 10 Normal 150-450 Neutrophils % 67.6 % High 36.0-66.0 Lymph % 20.9 % Low 24.0-44.0 [place] % 8.2 % High 2.0-8.0 Eos % 2.5 % Normal 0.0-3.0 Baso % 0.4 % Normal 0.0-1.0 Immature Granulocyte % 0.4 % Normal 0-3.0 Nucleated Red Blood Cell % 0.0 % Normal 0-0 Neutrophils # 5.1 10 Normal 1.5-8.5 Lymph # 1.6 10 Normal 1.5-5.0 [place] # 0.6 10 Normal 0.0-0.8 Eos # 0.2 10 Normal 0.0-0.5 Baso # 0.0 10 Normal 0.0-0.2 Laboratory test finding 10/09/2020 [facility] Outpatient T esting (Registration) [address] [place] [address] [phone] Erythrocyte Sedimentation Rate 35 mm/hr High 0 -30 Blood Culture No growth after <SEE NOTE> 4 Laboratory test finding 10/09/2020 [facility] Outpatient T esting (Registration) [address] [place] [address] [phone] Lactic Acid Sepsis Protocol 1.4 mmol/L Normal 0.4- 2.0 5 Cardiac Marker Panel 10/09/2020 [facility] Outpatient Test ing (Registration) [address] [place] [address] [phone] CPK Creatine Phosphokinase 53 U/L Normal 26-19 2 CK-MB Value Mass < 1.0 NG/ML Normal <3.6 MB/CK Relative Index 1.89 Normal < Or =4 6 Troponin I < 0.02 NG/ML Normal < 0.10 7 Liver Profile 10/09/2020 [facility] Outpatient Testi ng (Registration) [address] [place] [address] [phone] Ast/Sgot 17 U/L Normal 7-37 Alt/SGPT 24 U/L Normal 12-78 Alkaline Phosphatase 69 U/L Normal 45-117 Bilirubin,Total 0.5 mg/dL Normal 0.2-1.0 Bilirubin,Direct 0.2 mg/dL Normal 0.0-0.2 Total Protein 7.7 GM/DL Normal 6.4-8.2 Albumin 4.1 GM/DL Normal 3.2-5.2 Albumin/Globulin Ratio 1.1 Low 1.2-2.2 Basic Metabolic Profile 10/09/2020 [facility] Outpatient T esting (Registration) [address] [place] [address] [phone] Glucose, Fasting 110 mg/dL High 70-100 Blood Urea Nitrogen 21 mg/dL High 7-18 Creatinine For GFR 1.30 mg/dL Normal 0.55-1.30 Glomerular Filtration Rate 42.6 Normal >39 8 Sodium Level 138 mEq/L Normal 136-145 Potassium Serum 4.1 mEq/L Normal 3.5-5.1 Chloride Level 103 mEq/L Normal 98-107 Carbon Dioxide Level 31 mEq/L Normal 21-32 Anion Gap 4 mEq/L Low 8-16 Calcium Level 9.3 mg/dL Normal 8.8-10.2 Laboratory test finding 10/09/2020 [facility] Outpatient T esting (Registration) [address] [place] [address] [phone] LDH Lactate Dehydrogenase 184 U/L Normal 84-246 NT-Pro BNP 58 pg/mL Normal <125 Thyroxine (T4) 10.2 g/dL Normal 4.5-12.0 Thyroid Stimulating Hormone 2.880 uIU/ML Normal 0.358-3.740 Ferritin 38 NG/ML Normal 8-252 C Reactive Protein Quantitativ 0.30 mg/dL Normal 0.00-0.30 Prothrombin Time/Inr 10/09/2020 [facility] Outpatient Test ing (Registration) [address] [place] [address] [phone] Prothrombin Time 29.0 seconds High 12.5-14.3 Inr 2.67 Normal 9 Laboratory test finding 10/09/2020 [facility] Outpatient T esting (Registration) [address] [place] [address] [phone] D-Dimer Quant < 270.0 ng/ml Normal <500 1 This respiratory PCR panel d etects [...] Little GFR Left ESRD GFR <15 on [employer]NER 3 REFERENCE RANGES: <=5.6% NORMAL 5.7-6.4% SUGGESTS IMPAIRED GLUCOSE META BOLISM/PREDIABETIC >= 6.5% ABNORMAL 4 No growth after 72 hours . A ll specimens observed for 5 days. Results final at that time. No growth after 48 hours . All specimens observed for 5 days. Results final at that time. No growth after 24 hours . All specimens observed for 5 days. Results final at that time. NO GROWTH AFTER 5 DAYS 5 Y/N query for Sepsis Lactate Rule: Y 6 DIAGNOSIS CRITERIA MMB ng/ml Relative Index (RI) NON-AMI < or = 5 N/A PEREIRA ZONE > 5 < or = 4 AMI > 5 > 4 7 Troponin I Reference Interva l for [employer] LOCI: 99th Percentile= 0.00-0.045 ng/ml Risk Stratification: <= 0.10 ng/ml Decreased Risk for Adverse Clinical Events. 0.10-1.50 ng/ml Increased Risk for Adv erse Clinical Events. Evaluation of additional criterion and/or repeat testing in 2-6 hours is suggested to rule out myocardial damage. >= 1.50 ng/ml Indicative of Myocardial Injury. 8 Units are mL/min/1.73 m2 Chronic Kidney Disease Staging per NKF: Stage I & II GFR >=60 Normal to Mildly Decreased Stage III GFR 30-59 Moderately Decreased Stage IV GFR 15-29 Severely Decreased Stage V GFR <15 Very Little GFR Left ESRD GFR <15 on S[employer] PARTNER 9 THERAPUTIC HUMAN INR VALUES INDICATIONS NORMAL RANGES PROPHYLAXIS/TREATMENT OF: VENOUS THROMBOSIS 2.0-3.0 PULMONARY EMBOLISM 2.0-3.0 PREVENTION OF SYSTEMIC EMBOLISM FROM: TISSUE HEART VALVES 2.0-3.0 ACUTE MYOCARDIAL INFARCTION 2.0-3.0 VALVULAR HEART DISEASE 2.0-3.0 ATRIAL FIBRILLATION 2.0-3.0 MECHANICAL VALVES(HIGH RISK) 2.5-3.5 RECURRENT MYOCARDIAL INFARCTION 2.5-3.5 Procedures Date Code Description Status 02/28/2021 84590 Office/Outpatient Established Lo w MDM 20-29 Min Completed 02/17/2021 98455 Office/Outpatient Established Mo d MDM 30-39 Min Completed 01/01/2021 38728 Office/Outpatient Established Lo w MDM 20-29 Min Completed 12/18/2020 29772 Office/Outpatient Established Mo d MDM 30-39 Min Completed 12/04/2020 96652 Office/Outpatient Established Mo d MDM 30-39 Min Completed Medical Devices Description No Information Available Encounters Type Date Location Provider Dx Diagnosis Office Visit 02/28/2021 1:20p [facility] ELLIOT Bo R05 Cough Office Visit 02/17/2021 9:20a [facility] ELLIOT Bo F41.1 Generalized anxiety disorder E78.5 Hyperlipidemia, unspecified K21.00 Gastro-esophageal reflux dis with esophagitis, without bleed Z79.01 prison (current) use of a 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 K59.00 Constipation, unspecified N28.1 Cyst of kidney, acquired J45.30 Mild persistent asthma, unco mplicated Office Visit 01/01/2021 9:40a 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 ELLIOT Bo 02/28/2021 R05 Cough ELLIOT Bo 02/17/2021 F41.1 Generalized anxiety disorder ELLIOT Nick 02/17/2021 E78.5 Hyperlipidemia, unspecified ELLIOT Miller 02/17/2021 K21.00 Gastro-esophageal re flux disease with esophagitis, without bleeding ELLIOT Bo 02/17/2021 Z79.01 prison (current) use of a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 ELLIOT Bo [...] 07/10/2021 9:20 am - ELLIOT Bo at [facility] * 05/22/2021 9:00 am - ELLIOT Bo at [facility] 04/09/2021 - ELLIOT Bo* F41.1 Generalized anxiety disorder* Comments: * Continue with current Klonopin 1 mg medications and monitoring of symptoms. * Follow up:* 3 months * E78.5 Hyperlipidemia, unspecified* Comments:* continue with Lipitor 40 mg as prescribed * K21.00 Gastro-esophageal reflux disease with esophagitis, without bleeding* Comments:* Continue with your Omeprazole to 40 mg Twice a day and follow up with Dr. Cristy Carrasco for further evaluation * J45.30 Mild persistent asthma, uncomplicated* Comments:* Continue with use of your inhaled medications (Advair and Xopenex). Continue Xyzal, Flonase and Montelukast. Follow up with Dr. Mark and Abdiaziz * J30.9 Allergic rhinitis, unspecified* New Medication:* Xyzal Allergy 24HR 5 mg - 1 by mouth every day * Comments:* Stop Zyrtec and will switch you to Xyzal for better allergy relief. Continue with Montelukast and Flonase. Referral for Dr. William Freed for further allergy testing. * Referral:* William Freed MD, Allergy & Immunology/Algy * G43.009 Migraine without aura, not intractable, without status migrainosus* Comments:* Continue with the Depakote as Neurology as prescribed and we will switch your from Imitrex to Maxalt to see if this helps with abortive therapy for your headaches. 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 She would like allergy testing. She has a history of asthma and follows [facility] with [facility]. [facility] [address], [place] [address] [phone] Jamie Mark MD routine follow up of lung condition. [facility] [address] [place] [address] [phone]
--- OUTSIDE RECORDS SUMMARY | 2021-06-08 10:04 | CCD | Continuity of Care Document ---
Author Author Corina ROJAS PA Organization Unknown [place] [address] Phone [phone] Care Team Providers Care Afloat Cryptologic Manager Name Role Phone Lakshmi Grajeda D.O. AUTM Jamie Mark MD AUTM [phone] Jose Ashley LCSW AUTM [phone] Staci Dickens MS AUTM [phone] [employer] AUTM [phone] Tanya Estes M.D. AUTM [phone] William Freed MD AUTM [phone] Brandon Weiss MD AUTM [phone] [facility] AUTM [phone] [facility] AUTM [phone] Problems Active Problems Provider Date Insomnia ELLIOT [...] mouth every 8 hours for pain istop: [id number] 60tabs M25.522 Duglas FordeORahul 08/01/2020 Cetirizine HCL 10mg Tablets 1 by mouth every day at bedtime 30tabs R09.82 Duglas RodriguezORahul 04/24/[address] 1 by mouth every day 90tabs Duglas RodriguezO. 02/19 [facility] Probiotic Capsules one capsule [...] Tablets 1 tablet by mouth daily istop: [id number] 30tabs F41.1 Prema Rodriguez.O . 08/18/2017 Atorvastatin [...] Vaccine Lot # U-Flu Given 04/05/2019 Influenza,Unspecified 11051 Given 04/05/2019 Pneumococcal Con jugate Vaccine 13 Valent For Intramuscular Use 89676 Given 06/09/2018 Influenza Virus Vaccine, Quadrivalent, Split, Preservative Free [id number] Given 06/09/2018 Pneumococcal Con jugate Vaccine 13 Valent For Intramuscular Use [id number] Vital Signs Date Vital Result Comment 04/09/2021 9:13am BP Systolic 128 mmHg BP Diastolic 78 mmHg Height 63.7 inches 5'3.70" Weight 152.38 lb BMI (Body Mass Index) 26.4 kg/m2 Heart Rate 84 /min Respiratory Rate 18 /min Body Temperature 98.4 F O2 % BldC Oximetry 98 % [place] Body Weight 115 lb 02/28/2021 1:32pm BP Systolic 140 mmHg BP Diastolic 78 mmHg Height 63.7 inches 5'3.70" Weight 149.12 lb BMI (Body Mass Index) 25.8 kg/m2 Heart Rate 72 /min Respiratory Rate 16 /min Body Temperature 97.6 F O2 % BldC Oximetry 98 % [place] Body Weight 115 lb Results Test Acquired Date Facility Test Result H/L Range Note Respiratory Panel 02/28/2021 [facility] nter [address] [place] [address] [phone] Respiratory Panel This respiratory <SEE NOTE> 1 CBC With Differential 12/06/[address] [address] [phone] White Blood Count 6.2 10 Normal 4.0-10.0 [...] 36.0-66.0 Lymph % 21.8 % Low 24.0-44.0 [place] % 7.1 % Normal 2.0-8.0 Eos % 2.9 % Normal 0.0-3.0 Baso % 0.8 % Normal 0.0-1.0 Immature Granulocyte % 0.3 % Normal 0-3.0 Nucleated Red Blood Cell % 0.0 % Normal 0-0 Neutrophils # 4.2 10 Normal 1.5-8.5 Lymph # 1.4 10 Low 1.5-5.0 [place] # 0.4 10 Normal 0.0-0.8 Eos # 0.2 10 Normal 0.0-0.5 Baso # 0.1 10 Normal 0.0-0.2 Laboratory test finding 12/06/[address] [address] [phone] CPK Creatine Phosphokinase 55 U/L Normal 26-19 2 Erythrocyte Sedimentation Rate 33 mm/hr High 0-30 C Reactive Protein Quantitativ 0.30 mg/dL Normal 0.00-0.30 Comprehensive Metabolic Profil 12/06/[address] [address] [phone] Glucose, Fasting 98 mg/dL Normal 70-100 Blood [...] Ratio 1.1 Low 1.2-2.2 Hemoglobin A1c 12/06/2020 [facility] nter [address] [place] [address] [phone] Hemoglobin A1c 5.5 % Normal 3 Estimated Average Glucose 111 mg/dL High 60-110 Venous Blood Gas 10/09/2020 [facility] Outpatient Testi ng (Registration) [address] [place] [address] [phone] Venous PH 7.386 units Normal 7.330-7.430 Venous Partial Pressure Co2 49.8 mmHg Normal 38.0-50.0 Venous Partial Pressure O2 38.2 mmHg Normal 30.0-50.0 Venous Total Co2 30.7 mEq/L High 24.0-28.0 Venous Hco3 29.2 mEq/L High 23.0-27.0 Venous Base Excess 3.2 High -2.0-2.0 Venous Standard Hco3 26.7 mEq/L Normal Venous O2 Saturation 71.8 % Normal 60.0-80.0 CBC With Differential 10/09/2020 [facility] Outpatient Bridget ting (Registration) [address] [place] [address] [phone] White Blood Count 7.5 10 Normal 4.0-10.0 [...] 36.0-66.0 Lymph % 20.9 % Low 24.0-44.0 [place] % 8.2 % High 2.0-8.0 Eos % 2.5 % Normal 0.0-3.0 Baso % 0.4 % Normal 0.0-1.0 Immature Granulocyte % 0.4 % Normal 0-3.0 Nucleated Red Blood Cell % 0.0 % Normal 0-0 Neutrophils # 5.1 10 Normal 1.5-8.5 Lymph # 1.6 10 Normal 1.5-5.0 [place] # 0.6 10 Normal 0.0-0.8 Eos # 0.2 10 Normal 0.0-0.5 Baso # 0.0 10 Normal 0.0-0.2 Laboratory test finding 10/09/2020 [facility] Outpatient T esting (Registration) [address] [place] [address] [phone] Erythrocyte Sedimentation Rate 35 mm/hr High 0 -30 Blood Culture No growth after <SEE NOTE> 4 Laboratory test finding 10/09/2020 [facility] Outpatient T esting (Registration) [address] [place] [address] [phone] Lactic Acid Sepsis Protocol 1.4 mmol/L Normal 0.4- 2.0 5 Cardiac Marker Panel 10/09/2020 [facility] Outpatient Test ing (Registration) [address] [place] [address] [phone] CPK Creatine Phosphokinase 53 U/L Normal 26-19 2 CK-MB Value Mass < 1.0 NG/ML Normal <3.6 MB/CK Relative Index 1.89 Normal < Or =4 6 Troponin I < 0.02 NG/ML Normal < 0.10 7 Liver Profile 10/09/2020 [facility] Outpatient Testi ng (Registration) [address] [place] [address] [phone] Ast/Sgot 17 U/L Normal 7-37 Alt/SGPT 24 U/L Normal 12-78 Alkaline Phosphatase 69 U/L Normal 45-117 Bilirubin,Total 0.5 mg/dL Normal 0.2-1.0 Bilirubin,Direct 0.2 mg/dL Normal 0.0-0.2 Total Protein 7.7 GM/DL Normal 6.4-8.2 Albumin 4.1 GM/DL Normal 3.2-5.2 Albumin/Globulin Ratio 1.1 Low 1.2-2.2 Basic Metabolic Profile 10/09/2020 [facility] Outpatient T esting (Registration) [address] [place] [address] [phone] Glucose, Fasting 110 mg/dL High 70-100 Blood [...] mg/dL Normal 8.8-10.2 Laboratory test finding 10/09/2020 [facility] Outpatient T esting (Registration) [address] [place] [address] [phone] LDH Lactate Dehydrogenase 184 U/L Normal 84-246 NT-Pro BNP 58 pg/mL Normal <125 Thyroxine (T4) 10.2 g/dL Normal 4.5-12.0 Thyroid Stimulating Hormone 2.880 uIU/ML Normal 0.358-3.740 Ferritin 38 NG/ML Normal 8-252 C Reactive Protein Quantitativ 0.30 mg/dL Normal 0.00-0.30 Prothrombin Time/Inr 10/09/2020 [facility] Outpatient Test ing (Registration) [address] [place] [address] [phone] Prothrombin Time 29.0 seconds High 12.5-14.3 Inr 2.67 Normal 9 Laboratory test finding 10/09/2020 [facility] Outpatient T esting (Registration) [address] [place] [address] [phone] D-Dimer Quant < 270.0 ng/ml Normal <500 [...] Little GFR Left ESRD GFR <15 on [employer]ENT[employer] INSTRUCTOR 3 REFERENCE RANGES: <=5.6% NORMAL 5.7-6.4% SUGGESTS [...] 7 Troponin I Reference Interva l for [employer] LOCI: 99th Percentile= 0.00-0.045 ng/ml Risk Stratification: [...] Little GFR Left ESRD GFR <15 on [employer] INSTRUCTOR 9 THERAPUTIC HUMAN INR VALUES INDICATIONS NORMAL RANGES PROPHYLAXIS/TREATMENT OF: VENOUS THROMBOSIS 2.0-3.0 PULMONARY EMBOLISM 2.0-3.0 PREVENTION OF SYSTEMIC EMBOLISM FROM: TISSUE HEART VALVES 2.0-3.0 ACUTE MYOCARDIAL INFARCTION 2.0-3.0 VALVULAR HEART DISEASE 2.0-3.0 ATRIAL FIBRILLATION 2.0-3.0 MECHANICAL VALVES(HIGH RISK) 2.5-3.5 RECURRENT MYOCARDIAL INFARCTION 2.5-3.5 Procedures Date Code Description Status 04/09/2021 26649 Office/Outpatient Established Mo d MDM 30-39 Min Completed 02/28/2021 92060 Office/Outpatient Established Lo w MDM 20-29 Min Completed 02/17/2021 83403 Office/Outpatient Established Mo d MDM 30-39 Min Completed 01/01/2021 80054 Office/Outpatient Established Lo w MDM 20-29 Min Completed 12/18/2020 39559 Office/Outpatient Established Mo d MDM 30-39 Min Completed 12/04/2020 69247 Office/Outpatient Established Mo d MDM 30-39 Min Completed Medical Devices Description No Information Available Encounters Type Date Location Provider Dx Diagnosis Office Visit 04/09/2021 9:20a [facility] ELLIOT Bo F41.1 Generalized anxiety disorder E78.5 Hyperlipidemia, unspecified K21.00 Gastro-esophageal reflux dis with esophagitis, without bleed J45.30 Mild persistent asthma, unco mplicated J30.9 Allergic rhinitis, unspecifi ed G43.009 Migraine w/o aura, not intra ctable, w/o status migrainosus Z79.01 USP (current) use of a 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 Office Visit 02/28/2021 1:20p [facility] ELLIOT Bo R05 Cough Office Visit 02/17/2021 9:20a [facility] ELLIOT Bo F41.1 Generalized anxiety disorder E78.5 Hyperlipidemia, unspecified K21.00 Gastro-esophageal reflux dis with esophagitis, without bleed 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 K59.00 Constipation, unspecified N28.1 Cyst of kidney, acquired J45.30 Mild persistent asthma, unco mplicated Office Visit 01/01/2021 9:40a [facility] ELLIOT Bo 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 R05 Cough Office Visit 12/18/2020 9:20a [facility] ELLIOT Bo 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 R05 Cough Office Visit 12/04/2020 11:30a [facility] ELLIOT Bo 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 R73.01 [...] without status migrainosus ELLIOT Bo 04/09/2021 Z79.01 USP (current) use of a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 ELLIOT Bo 02/28/2021 R05 Cough ELLIOT Bo 02/17/2021 F41.1 Generalized anxiety disorder [facility] ELLIOT Hsieh 02/17/2021 E78.5 Hyperlipidemia, unspecified ELLIOT Miller 02/17/2021 K21.00 Gastro-esophageal re flux disease with esophagitis, without bleeding ELLIOT Bo 02/17/2021 Z79.01 USP (current) use of a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 ELLIOT Bo [...] 07/10/2021 9:20 am - ELLIOT Bo at [facility] * 05/22/2021 9:00 am - ELLIOT Bo at [facility] Functional Status Description No Information Available Mental Status Description No Information Available Referrals Refer to Reason for Referral Status Appt Date William Freed MD Corina has more frequent flaco rgic rhinitis noticed to be worse at home. She would like allergy testing. She has a history of asthma and follows up with [facility]. [facility] [address], [place] [address] [phone] Jamie Mark MD routine follow up of lung condition. [facility] [address] [place] [address] [phone]
--- OUTSIDE RECORDS SUMMARY | 2021-06-08 10:08 | CCD ---
Author Author [facility] Organization [facility] Address Unknown Phone Unavailable Support Name Relationship Address Phone [facility] DEPT Next Of Kin [address] [place] [address] Norman Barker Next Of Kin pt doesn't know numb er yet Unknown Unavailable Fan DARSHANAFaiza Next Of [place] [address] [place] [address] [facility] [employer] Next Of Kin [address] [place] [address] [place] [address] [phone] RE Next Of Kin Unknown Unavailable NORMAN HERNANDEZ Next Of Kin [address] [id number] WPD Next Of Kin [address] [place] [address] [employer] Next Of Kin WAL MART Unknown Unavailable UE Next Of Kin Unknown Unavailable [facility] [employer] Next Of Kin [address] [place] [address] Unavailable CHERYL BOLDEN Next Of Kin [address] [place] [id number] [employer] Next Of Kin [address] [place], [place] [id number] HA CLARKE Next Of Kin [address] [address] [id number] Ha Clarke Next Of Kin Unknown UNEMPLOYED Next Of Kin [address] [place] [id number] Carol Marie E[place] [address] [facility] [address] [place] [address] Unavailable Norman Hernandez ECON [address] [place] [address] Unavailable Care Team Providers Care Licensed Mental Health Professional Name Role Phone Niles, Charlene MD Unavailable Unavailable Niles, Charlene MD Unavailable Unavailable Niles, Charlene MD Unavailable Unavailable Niles, Charlene MD Unavailable Unavailable Niles, Charlene MD Unavailable Unavailable Niles, Charlene MD Unavailable Unavailable Niles, Charlene MD Unavailable Unavailable Niles, Charlene MD Unavailable Unavailable Niles, Charlene MD Unavailable Unavailable Niles, Charlene MD Unavailable Unavailable Niles, Charlene MD Unavailable Unavailable Niles, Charlene MD Unavailable Unavailable Niles, Charlene MD Unavailable Unavailable Niles, Charlene MD Unavailable Unavailable Niles, Charlene MD Unavailable Unavailable Niles, Charlene MD Unavailable Unavailable Niles, Charlene MD Unavailable Unavailable Niles, Charlene MD Unavailable Unavailable Niles, Charlene MD Unavailable Unavailable Niles, Charlene MD Unavailable Unavailable Niles, Charlene MD Unavailable Unavailable Niles, Charlene MD Unavailable Unavailable Niles, Charlene MD Unavailable Unavailable Niles, Charlene MD Unavailable Unavailable Niles, Charlene MD Unavailable Unavailable Niles, Charlene MD Unavailable Unavailable Niles, Charlene MD Unavailable Unavailable Niles, Charlene MD Unavailable Unavailable Niles, Charlene MD Unavailable Unavailable Niles, Charlene MD Unavailable Unavailable Niles, Charlene MD Unavailable Unavailable Niles, Charlene MD Unavailable Unavailable Niles, Charlene MD Unavailable Unavailable Niles, Charlene MD Unavailable Unavailable Niles, Charlene MD Unavailable Unavailable Niles, Charlene MD Unavailable Unavailable Niles, Charlene MD Unavailable Unavailable Niles, Charlene MD Unavailable Unavailable Niles, Charlene MD Unavailable Unavailable Niles, Charlene MD Unavailable Unavailable Niles, Charlene MD Unavailable Unavailable Niles, Charlene MD Unavailable Unavailable Niles, Charlene MD Unavailable Unavailable Niles, Charlene MD Unavailable Unavailable Niles, Charlene MD Unavailable Unavailable Niles, Charlene MD Unavailable Unavailable Niles, Charlene MD Unavailable Unavailable Niles, Charlene MD Unavailable Unavailable Niles, Charlene MD Unavailable Unavailable Niles, Charlene MD Unavailable Unavailable Niles, Charlene MD Unavailable Unavailable Niles, Charlene MD Unavailable Unavailable Niles, Charlene MD Unavailable Unavailable Niles, Charlene MD Unavailable Unavailable Niles, Charlene MD Unavailable Unavailable Niles, Charlene MD Unavailable Unavailable Niles, Charlene MD Unavailable Unavailable Niles, Charlene MD Unavailable Unavailable Niles, Charlene MD Unavailable Unavailable Niles, Charlene MD Unavailable Unavailable Niles, Charlene MD Unavailable Unavailable Niles, Charlene MD Unavailable Unavailable Porfirio ROGERS MD Unavailable Unavailable ROGERS, L ROYER VERONICA Unavailable Unavailable ROGERS, L ROYER VERONICA Unavailable Unavailable ROGERS, L ROYER VERONICA Unavailable Unavailable ROGERS, L ROYER VERONICA Unavailable Unavailable ROGERS, L ROYER VERONICA Unavailable Unavailable ROGERS, L ROYER VERONICA Unavailable Unavailable ROGERS, L ROYER MD Unavailable Unavailable ROGERS, L ROYER VERONICA Unavailable Unavailable ROGERS, L ROYER VERONICA Unavailable Unavailable ROGERS, L ROYER VERONICA Unavailable Unavailable ROGERS, L ROYER VERONICA Unavailable Unavailable ROGERS, L ROYER VEROINCA Unavailable Unavailable ROGERS, L ROYER MD Unavailable Unavailable ROGERS, L ROYER MD Unavailable Unavailable ROGERS, L ROYER VERONICA Unavailable Unavailable ROGERS, L ROYER VERONICA Unavailable Unavailable ROGERS, L ROYER VERONICA Unavailable Unavailable ROGERS, L ROYER VERONICA Unavailable Unavailable ROGERS, L ROYER VERONICA Unavailable Unavailable ROGERS, L ROYRE VERONICA Unavailable Unavailable ROGERS, L ROYER VERONICA Unavailable Unavailable ROGERS, L ROYER VERONICA Unavailable Unavailable ROGERS, L ROYER VERONICA Unavailable Unavailable ROGERS, L ROYER VERONICA Unavailable Unavailable ROGERS, L ROYER VERONICA Unavailable Unavailable ROGERS, L ROYER VERONICA Unavailable Unavailable ROGERS, L ROYER VERONICA Unavailable Unavailable ROGERS, L ROYER VERONICA Unavailable Unavailable ROGERS, L ROYER VERONICA Unavailable Unavailable ROGERS, L ROYER VERONICA Unavailable Unavailable ROGERS, L ROYER VERONICA Unavailable Unavailable ROGERS, L ROYER VERONICA Unavailable Unavailable ROGERS, L ROYER VERONICA Unavailable Unavailable ROGERS, L ROYER VERONICA Unavailable Unavailable ROGERS, L ROYER VERONICA Unavailable Unavailable ROGERS, L ROYER VERONICA Unavailable Unavailable ROGERS, L ROYER VERONICA Unavailable Unavailable ROGERS, L ROYER VERONICA Unavailable Unavailable ROGERS, L ROYER VERONICA Unavailable Unavailable ROGERS, L ROYER VERONICA Unavailable Unavailable ROGERS, L RYOER VERONICA Unavailable Unavailable ROGERS, L ROYER VERONICA Unavailable Unavailable ROGERS, L ROYER VERONICA Unavailable Unavailable ROGERS, L ROYER VERONICA Unavailable Unavailable Hiram, Tacos PA Unavailable Unavailable Hiram, Tacos PA Unavailable Unavailable Hiram, Tacos PA Unavailable Unavailable Hiram, Tacos PA Unavailable Unavailable Hiram, Tacos PA Unavailable Unavailable Hiram, Tacos PA Unavailable Unavailable Hiram, Tacos PA Unavailable Unavailable Hiram, Tacos PA Unavailable Unavailable Hiram, Tacos PA Unavailable Unavailable Hiram, Tacos PA Unavailable Unavailable Hiram, Tacos PA Unavailable Unavailable Hiram, Tacos PA Unavailable Unavailable Hiram, Tacos PA Unavailable Unavailable Hiram, Tacos PA Unavailable Unavailable Hiram, Tacos PA Unavailable Unavailable Hiram, Tacos PA Unavailable Unavailable Hiram, Tacos PA Unavailable Unavailable Hiram, Tacos PA Unavailable Unavailable Hiram, Tacos PA Unavailable Unavailable Hiram, Tacos PA Unavailable Unavailable Hiram, Tacos PA Unavailable Unavailable Hiram, Tacos PA Unavailable Unavailable Hiram, Tacos PA Unavailable Unavailable Hiram, Tacos PA Unavailable Unavailable Hiram, Tacos PA Unavailable Unavailable Hiram, Tacos PA Unavailable Unavailable Hiram, Tacos PA Unavailable Unavailable Hiram, Tacos PA Unavailable Unavailable Hiram, Tacos PA Unavailable Unavailable Hiram, Tacos PA Unavailable Unavailable Hiram, Tacos PA Unavailable Unavailable Hiram, Tacos PA Unavailable Unavailable Hiram, Tacos PA Unavailable Unavailable Hiram, Tacos PA Unavailable Unavailable Hiram, Tacos PA Unavailable Unavailable Hiram, Tacos PA Unavailable Unavailable Hiram, Tacos PA Unavailable Unavailable Hiram, Tacos PA Unavailable Unavailable Hiram, Tacos PA Unavailable Unavailable Hiram, Tacos PA Unavailable Unavailable Hiram, Tacos PA Unavailable Unavailable Hiram, Tacos PA Unavailable Unavailable Hiram, Tacos PA Unavailable Unavailable Hiram, Tacos PA Unavailable Unavailable Hiram, Tacos PA Unavailable Unavailable Hiram, Tacos PA Unavailable Unavailable Hiram, Tacos PA Unavailable Unavailable Hiram, Tacos PA Unavailable Unavailable Hiram, Tacos PA Unavailable Unavailable Hiram, Tacos PA Unavailable Unavailable Hiram, Tacos PA Unavailable Unavailable Hiram, Tacos PA Unavailable Unavailable Hiram, Tacos PA Unavailable Unavailable Hiram, Tacos PA Unavailable Unavailable Valentin, Susanne Kia ANP-BC Unavailable Unavailable Valentin, Susanne Kia ANP-BC Unavailable Unavailable Valentin, Susanne Kia ANP-BC Unavailable Unavailable Valentin, Susanne Kia ANP-BC Unavailable Unavailable Valentin, Susanne Kia ANP-BC Unavailable Unavailable Valentin, Susanne Kia ANP-BC Unavailable Unavailable Valentin, Susanne Kia ANP-BC Unavailable Unavailable Valentin, Susanne Kia ANP-BC Unavailable Unavailable Valentin, Susanne Kia ANP-BC Unavailable Unavailable Valentin, Susanne Kia ANP-BC Unavailable Unavailable Valentin, Susanne Kia ANP-BC Unavailable Unavailable Valentin, Susanne Kia ANP-BC Unavailable Unavailable Valentin, Susanne Kia ANP-BC Unavailable Unavailable Valentin, Susanne Kia ANP-BC Unavailable Unavailable Valentin, Susanne Kia ANP-BC Unavailable Unavailable Valentin, Susanne Kia ANP-BC Unavailable Unavailable Valentin, Susanne Kia ANP-BC Unavailable Unavailable Valentin, Susanne Kia ANP-BC Unavailable Unavailable Valentin, Susanne Kia ANP-BC Unavailable Unavailable Valentin, Susanne Kia ANP-BC Unavailable Unavailable Valentin, Susanne Kia ANP-BC Unavailable Unavailable Valentin, Susanne Kia ANP-BC Unavailable Unavailable Valentin, Susanne Kia ANP-BC Unavailable Unavailable Valentin, Susanne Kia ANP-BC Unavailable Unavailable Valentin, Susanne Kia ANP-BC Unavailable Unavailable Valentin, Susanne Kia ANP-BC Unavailable Unavailable Valentin, Susanne Kia ANP-BC Unavailable Unavailable Valentin, Susanne Kia ANP-BC Unavailable Unavailable Valentin, Susanne Kia ANP-BC Unavailable Unavailable Valentin, Susanne Kia ANP-BC Unavailable Unavailable Valentin, Susanne Kia ANP-BC Unavailable Unavailable Valentin, Susanne Kia ANP-BC Unavailable Unavailable Valentin, Susanne Kia ANP-BC Unavailable Unavailable Valentin, Susanne Kia ANP-BC Unavailable Unavailable Valentin, Susanne Kia ANP-BC Unavailable Unavailable Valentin, Susanne Kia ANP-BC Unavailable Unavailable Valentin, Susanne Kia ANP-BC Unavailable Unavailable Valentin, Susanne Kia ANP-BC Unavailable Unavailable Valentin, Susanne Kia ANP-BC Unavailable Unavailable Valentin, Susanne Kia ANP-BC Unavailable Unavailable Valentin, Susanne Kia ANP-BC Unavailable Unavailable Valentin, Susanne Kia ANP-BC Unavailable Unavailable Valentin, Susanne Kia ANP-BC Unavailable Unavailable Valentin, Susanne Kia ANP-BC Unavailable Unavailable Valentin, Susanne Kia ANP-BC Unavailable Unavailable Valentin, Susanne Kia ANP-BC Unavailable Unavailable Valentin, Susanne Kia ANP-BC Unavailable Unavailable Valentin, Susanne Kia ANP-BC Unavailable Unavailable Valentin, Susanne Kia ANP-BC Unavailable Unavailable Valentin, Susanne Kia ANP-BC Unavailable Unavailable Valentin, Susanne Kia ANP-BC Unavailable Unavailable Valentin, Susanne Kia ANP-BC Unavailable Unavailable Valentin, Susanne Kia ANP-BC Unavailable Unavailable Valentin, Susanne Kia ANP-BC Unavailable Unavailable Valentin, Susanne Kia ANP-BC Unavailable Unavailable Valentin, Susanne Kia ANP-BC Unavailable Unavailable Valentin, Susanne Kia ANP-BC Unavailable Unavailable Valentin, Susanne Kia ANP-BC Unavailable Unavailable Valentin, Susanne Kia ANP-BC Unavailable Unavailable Valentin, Susanne Kia ANP-BC Unavailable Unavailable Valentin, Susanne Kia ANP-BC Unavailable Unavailable Valentin, Susanne Kia ANP-BC Unavailable Unavailable Valentin, Susanne Kia ANP-BC Unavailable Unavailable Valentin, Susanne Kia ANP-BC Unavailable Unavailable Valentin, Susanne Kia ANP-BC Unavailable Unavailable Valentin, Susanne Kia ANP-BC Unavailable Unavailable EMILY (MARNI), Lilibeth FRANCES MD Unavailable Unavailab le EMILY (MARNI), Lilibeth FRANCES MD Unavailable Unavailab le EMILY (MARNI), Lilibeth FRANCES MD Unavailable Unavailab le EMILY (MARNI), Lilibeth FRANCES MD Unavailable Unavailab le EMILY (MARNI), Lilibeth FRANCES MD Unavailable Unavailab le EMILY (MARNI), Lilibeth FRANCES MD Unavailable Unavailab le EMILY (MARNI), Lilibeth FRANCES MD Unavailable Unavailab le EMILY (MARNI), Lilibeth FRANCES MD Unavailable Unavailab le EMILY (MARNI), Lilibeth FRANCES MD Unavailable Unavailab le EMILY (MARNI), Lilibeth FRANCES MD Unavailable Unavailab le EMILY (MARNI), Lilibeth FRANCES MD Unavailable Unavailab le EMILY (MARNI), Lilibeth FRANCES MD Unavailable Unavailab le EMILY (MARNI), Lilibeth FRANCES MD Unavailable Unavailab le EMILY (MARNI), Lilibeth FRANCES MD Unavailable Unavailab le EMILY (MARNI), Lilibeth FRANCES MD Unavailable Unavailab le EMILY (MARNI), Lilibeth FRANCES MD Unavailable Unavailab le EMILY (MARNI), Lilibeth FRANCES MD Unavailable Unavailab le EMILY (MARNI), Lilibeth FRANCES MD Unavailable Unavailab le EMILY (MARNI), Lilibeth FRANCES MD Unavailable Unavailab le EMILY (MARNI), Lilibeth FRANCES MD Unavailable Unavailab le EMILY (MARNI), Lilibeth FRANCES MD Unavailable Unavailab le EMILY (MARNI), Lilibeth FRANCES MD Unavailable Unavailab le EMILY (MARNI), Lilibeth FRANCES MD Unavailable Unavailab le EMILY (MARNI), Lilibeth FRANCES MD Unavailable Unavailab le EMILY (MARNI), Lilibeth FRANCES MD Unavailable Unavailab le EMILY (MARNI), Lilibeth FRANCES MD Unavailable Unavailab le EMILY (MARNI), Lilibeth FRANCES MD Unavailable Unavailab le EMILY (MARNI), Lilibeth FRANCES MD Unavailable Unavailab le MEILY (MARNI), Lilibeth FRANCES MD Unavailable Unavailab le EMILY (MARNI), Lilibeth FRANCES MD Unavailable Unavailab le EMILY (MARNI), Lilibeth FRANCES MD Unavailable Unavailab le EMILY (MARNI), Lilibeth FRANCES MD Unavailable Unavailab le EMILY (MARNI), Lilibeth FRANCES MD Unavailable Unavailab le EMILY (MARNI), Lilibeth FRANCES MD Unavailable Unavailab le EMILY (MARNI), Lilibeth FRANCES MD Unavailable Unavailab le EMILY (MARNI), Lilibeth FRANCES MD Unavailable Unavailab le EMILY (MARNI), Lilibeth FRANCES MD Unavailable Unavailab le EMILY (MARNI), Lilibeth FRANCES MD Unavailable Unavailab le EMILY (MARNI), Lilibeth FRANCES MD Unavailable Unavailab le EMILY (MARNI), Lilibeth FRANCES MD Unavailable Unavailab le EMILY (MARNI), Lilibeth FRANCES MD Unavailable Unavailab le EMILY (MARNI), Lilibeth FRANCES MD Unavailable Unavailab le EMILY (MARNI), Lilibeth FRANCES MD Unavailable Unavailab le EMILY (MARNI), Lilibeth FRANCES MD Unavailable Unavailab le EMILY (MARNI), Lilibeth FRANCES MD Unavailable Unavailab le EMILY (MARNI), Lilibeth FRANCES MD Unavailable Unavailab le EMILY (MARNI), Lilibeth FRANCES MD Unavailable Unavailab le EMILY (MARNI), Lilibeth FRANCES MD Unavailable Unavailab le EMILY (MARNI), Lilibeth FRANCES MD Unavailable Unavailab le EMILY (MARNI), Lilibeth FRANCES MD Unavailable Unavailab le EMILY (MARNI), Lilibeth FRANCES MD Unavailable Unavailab le EMILY (MARNI), Lilibeth FRANCES MD Unavailable Unavailab le EMILY (MARNI), Lilibeth FRANCES MD Unavailable Unavailab le EMILY (MARNI), Lilibeth FRANCES MD Unavailable Unavailab le EMILY (MARNI), Lilibeth FRANCES MD Unavailable Unavailab le EMILY (MARNI), Lilibeth FRANCES MD Unavailable Unavailab le EMILY (MARNI), Lilibeth FRANCES MD Unavailable Unavailab le EMILY (MARNI), Lilibeth FRANCES MD Unavailable Unavailab le EMILY (MARNI), Lilibeth FRANCES MD Unavailable Unavailab le EMILY (MARNI), Lilibeth FRANCES MD Unavailable Unavailab le EMILY (MARNI), Lilibeth FRANCES MD Unavailable Unavailab le EMILY (MARNI), Lilibeth FRANCES MD Unavailable Unavailab le EMILY (MARNI), Lilibeth FRANCES MD Unavailable Unavailab le EMILY (MARNI), Lilibeth FRANCES MD Unavailable Unavailab le EMILY (MARNI), Lilibeth FRANCES MD Unavailable Unavailab le EMILY (MARNI), Lilibeth FRANCES MD Unavailable Unavailab le EMILY (MARNI), Lilibeth FRANCES MD Unavailable Unavailab le EMILY (MARNI), Lilibeth FRANCES MD Unavailable Unavailab le EMILY (MARNI), Lilibeth FRANCES MD Unavailable Unavailab le EMILY (MARNI), Lilibeth FRANCES MD Unavailable Unavailab le EMILY (MARNI), Lilibeth FRANCES MD Unavailable Unavailab le EMILY (MARNI), Lilibeth FRANCES MD Unavailable Unavailab le EMILY (MARNI), Lilibeth FRANCES MD Unavailable Unavailab le EMILY (MARNI), Lilibeth FRANCES MD Unavailable Unavailab le EMILY (MARNI), Lilibeth FRANCES MD Unavailable Unavailab le EMILY (MARNI), Lilibeth FRANCES MD Unavailable Unavailab le EMILY (MARNI), Lilibeth FRANCES MD Unavailable Unavailab le EMILY (MARNI), Lilibeth FRANCES MD Unavailable Unavailab le EMILY (MARNI), Lilibeth FRANCES MD Unavailable Unavailab le EMILY (MARNI), Lilibeth FRANCES MD Unavailable Unavailab le EMILY (MARNI), Lilibeth FRANCES MD Unavailable Unavailab le EMILY (MARNI), Lilibeth FRANCES MD Unavailable Unavailab le EMILY (MARNI), Lilibeth FRANCES MD Unavailable Unavailab le EMILY (MARNI), Lilibeth FRANCES MD Unavailable Unavailab le EMILY (MARNI), Lilibeth FRANCES MD Unavailable Unavailab le EMILY (MARNI), Lilibeth FRANCES MD Unavailable Unavailab le EMILY (MARNI), Lilibeth FRANCES MD Unavailable Unavailab le Garcia Duran, Denise Taylor MD, FACS Unavailable Unavailable Garcia Duran, Denise Taylor MD, FACS Unavailable Unavailable Garcia Duran, Denise Taylor MD, FACS Unavailable Unavailable Garcia Duran, Denise Tayolr MD, FACS Unavailable Unavailable Garcia Duran, Denise Taylor MD, FACS Unavailable Unavailable Garcia Duran, Deinse Taylor MD, FACS Unavailable Unavailable Garcia Duran, Denise Taylor MD, FACS Unavailable Unavailable Garcia Duran, Denise Taylor MD, FACS Unavailable Unavailable Garcia Duran, Denise Taylor MD, FACS Unavailable Unavailable Garcia Duran, Denise Taylor MD, FACS Unavailable Unavailable Garcia Duran, Denise Taylor MD, FACS Unavailable Unavailable Garcia Duran, Denise Taylor MD, FACS Unavailable Unavailable Garcia Duran, Denise Taylor MD, FACS Unavailable Unavailable Garcia Duran, Denise Taylor MD, FACS Unavailable Unavailable Garcia Duran, Denise Taylor MD, FACS Unavailable Unavailable Garcia Duran, Denise Taylor MD, FACS Unavailable Unavailable Garcia Duran, Denise Taylor MD, FACS Unavailable Unavailable Garcia Duran, Denise Taylor MD, FACS Unavailable Unavailable Garcia Duran, Denise Taylor MD, FACS Unavailable Unavailable Garcia Duran, Denise Taylor MD, FACS Unavailable Unavailable Garcia Duran, Denise Taylor MD, FACS Unavailable Unavailable Garcia Duran, Denise Taylor MD, FACS Unavailable Unavailable Garcia Duran, Denise Taylor MD, FACS Unavailable Unavailable Garcia Duran, Denise Taylor MD, FACS Unavailable Unavailable Garcia Duran, Denise Taylor MD, FACS Unavailable Unavailable Garcia Duran, Denise Taylor MD, FACS Unavailable Unavailable Garcia Duran, Denise Taylor MD, FACS Unavailable Unavailable Garcia Duran, Denise Taylor MD, FACS Unavailable Unavailable Garcia Duran, Denise Taylor MD, FACS Unavailable Unavailable Garcia Duran, Denise Taylor MD, FACS Unavailable Unavailable Garcia Duran, Denise Taylor MD, FACS Unavailable Unavailable Garcia Duran, Denise Taylor MD, FACS Unavailable Unavailable Garcia Duran, Denise Taylor MD, FACS Unavailable Unavailable Garcia Duran, Denise Taylor MD, FACS Unavailable Unavailable Garcia Duran, Denise Taylor MD, FACS Unavailable Unavailable Garcia Duran, Denise Taylor MD, FACS Unavailable Unavailable Garcia Duran, Denise Taylor MD, FACS Unavailable Unavailable Garcia Duran, Denise Taylor MD, FACS Unavailable Unavailable Garcia Duran, Denise Taylor MD, FACS Unavailable Unavailable Edil Hamm Unavailable Unavailable EMILY (MARNI), Lilibeth FRANCES MD Unavailable Unavailab le EMILY (MARNI), Lilibeth FRANCES MD Unavailable Unavailab le EMILY (MARNI), Lilibeth FRANCES MD Unavailable Unavailab le EMILY (MARNI), Lilibeth FRANCES MD Unavailable Unavailab le EMILY (MARNI), Lilibeth FRANCES MD Unavailable Unavailab le EMILY (MARNI), Lilibeth FRANCES MD Unavailable Unavailab le EMILY (MARNI), Lilibeth FRANCES MD Unavailable Unavailab le EMILY (MARNI), Lilibeth FRANCES MD Unavailable Unavailab le EMILY (MARNI), Lilibeth FRANCES MD Unavailable Unavailab le EMILY (MARNI), Lilibeth FRANCES MD Unavailable Unavailab le EMILY (MARNI), Lilibeth FRANCES MD Unavailable Unavailab le EMILY (MARNI), Lilibeth FRANCES MD Unavailable Unavailab le EMILY (MARNI), Lilibeth FRANCES MD Unavailable Unavailab le EMILY (MARNI), Lilibeth FRANCES MD Unavailable Unavailab le EMILY (MARNI), Lilibeth FRANCES MD Unavailable Unavailab le EMILY (MARNI), Lilibeth FRANCES MD Unavailable Unavailab le EMILY (MARNI), Lilibeth FRANCES MD Unavailable Unavailab le EMILY (MARNI), Lilibeth FRANCES MD Unavailable Unavailab le EMILY (MARNI), Lilibeth FRANCES MD Unavailable Unavailab le EMILY (MARNI), Lilibeth FRANCES MD Unavailable Unavailab le EMILY (MARNI), Lilibeth FRANCES MD Unavailable Unavailab le EMILY (MARNI), Lilibeth FRANCES MD Unavailable Unavailab le EMILY (MARNI), Lilibeth FRANCES MD Unavailable Unavailab le EMILY (MARNI), Lilibeth FRANCES MD Unavailable Unavailab le EMILY (MARNI), Lilibeth FRANCES MD Unavailable Unavailab le EMILY (MARNI), Lilibeth FRANCES MD Unavailable Unavailab le EMILY (MARNI), Lilibeth FRANCES MD Unavailable Unavailab le EMILY (MARNI), Lilibeth FRANCES MD Unavailable Unavailab le EMILY (MARNI), Lilibeth FRANCES MD Unavailable Unavailab le EMILY (MARNI), Lilibeth FRANCES MD Unavailable Unavailab le EMILY (MARNI), Lilibeth FRANCES MD Unavailable Unavailab le EMILY (MARNI), Lilibeth FRANCES MD Unavailable Unavailab le EMILY (MARNI), Lilibeth FRANCES MD Unavailable Unavailab le EMILY (MARNI), Lilibeth FRANCES MD Unavailable Unavailab le EMILY (MARNI), Lilibeth FRANCES MD Unavailable Unavailab le EMILY (MARNI), Lilibeth FRANCES MD Unavailable Unavailab le EMILY (MARNI), Lilibeth FRANCES MD Unavailable Unavailab le EMILY (MARNI), Lilibeth FRANCES MD Unavailable Unavailab le EMILY (MARNI), Lilibeth FRANCES MD Unavailable Unavailab le EMILY (MARNI), Lilibeth FRANCES MD Unavailable Unavailab le EMILY (MARNI), Lilibeth FRANCES MD Unavailable Unavailab le EMILY (MARNI), Lilibeth FRANCES MD Unavailable Unavailab le EMILY (MARNI), Lilibeth FRANCES MD Unavailable Unavailab le EMILY (MARNI), Lilibeth FRANCES MD Unavailable Unavailab le EMILY (MARNI), Lilibeth FRANCES MD Unavailable Unavailab le EMILY (MARNI), Lilibeth FRANCES MD Unavailable Unavailab le EMILY (MARNI), Lilibeth FRANCES MD Unavailable Unavailab le EMILY (MARNI), Lilibeth FRANCES MD Unavailable Unavailab le EMILY (MARNI), Lilibeth FRANCES MD Unavailable Unavailab le EMILY (MARNI), Lilibeth FRANCES MD Unavailable Unavailab le EMILY (MARNI), Lilibeth FRANCES MD Unavailable Unavailab le EMILY (MARNI), Lilibeth FRANCES MD Unavailable Unavailab le EMILY (MARNI), Lilibeth FRANCES MD Unavailable Unavailab le EMILY (MARNI), Lilibeth FRANCES MD Unavailable Unavailab le EMILY (MARNI), Lilibeth FRANCES MD Unavailable Unavailab le EMILY (MARNI), Lilibeth FRANCES MD Unavailable Unavailab le EMILY (MARNI), Lilibeth FRANCES MD Unavailable Unavailab le EMILY (MARNI), Lilibeth FRANCES MD Unavailable Unavailab le EMILY (MARNI), Lilibeth FRANCES MD Unavailable Unavailab le EMILY (MARNI), Lilibeth FRANCES MD Unavailable Unavailab le EMILY (MARNI), Lilibeth FRANCES MD Unavailable Unavailab le EMILY (MARNI), Lilibeth FRANCES MD Unavailable Unavailab le EMILY (MARNI), Lilibeth FRANCES MD Unavailable Unavailab le EMILY (MARNI), Lilibeth FRANCES MD Unavailable Unavailab le EMILY (MARNI), Lilibeth FRANCES MD Unavailable Unavailab le EMILY (MARNI), Lilibeth FRANCES MD Unavailable Unavailab le EMILY (MARNI), Lilibeth FRANCES MD Unavailable Unavailab le EMILY (MARNI), Lilibeth FRANCES MD Unavailable Unavailab le EMILY (MARNI), Lilibeth FRANCES MD Unavailable Unavailab le EMILY (MARNI), Lilibeth FRANCES MD Unavailable Unavailab le EMILY (MARNI), Lilibeth FRANCES MD Unavailable Unavailab le EMILY (MARNI), Lilibeth FRANCES MD Unavailable Unavailab le EMILY (MARNI), Lilibeth FRANCES MD Unavailable Unavailab le EMILY (MARNI), Lilibeth FRANCES MD Unavailable Unavailab le EMILY (MARNI), Lilibeth FRANCES MD Unavailable Unavailab le EMILY (MARNI), Lilibeth FRANCES MD Unavailable Unavailab le EMILY (MARNI), Lilibeth FRANCES MD Unavailable Unavailab le EMILY (MARNI), Lilibeth FRANCES MD Unavailable Unavailab le EMILY (MARNI), Lilibeth FRANCES MD Unavailable Unavailab le EMILY (MARNI), Lilibeth FRANCES MD Unavailable Unavailab le EMILY (MARNI), Lilibeth FRANCES MD Unavailable Unavailab le EMILY (MARNI), Lilibeth FRANCES MD Unavailable Unavailab le EMILY (MARNI), Lilibeth FRANCES MD Unavailable Unavailab le EMILY (MARNI), Lilibeth FRANCES MD Unavailable Unavailab le EMILY (MARNI), Lilibeth FRANCES MD Unavailable Unavailab le EMILY (MARNI), Lilibeth FRANCES MD Unavailable Unavailab le EMILY (MARNI), Lilibeth FRANCES MD Unavailable Unavailab le SlezRudy gautam MD Unavailable Unavailable Rudy Andersen MD Unavailable Unavailable Rudy Andersen MD Unavailable Unavailable SleRudy garcia MD Unavailable Unavailable SleRudy garcia MD Unavailable Unavailable Slezka, Vojtech MD Unavailable Unavailable Rudy Andersen MD Unavailable Unavailable Rudy Andersen MD Unavailable Unavailable Rudy Andersen MD Unavailable Unavailable Rudy Andersen MD Unavailable Unavailable Rudy Andersen MD Unavailable Unavailable Rudy Andersen MD Unavailable Unavailable Rudy Andersen MD Unavailable Unavailable Rudy Andersen MD Unavailable Unavailable Rudy Andersen MD Unavailable Unavailable Rudy Andersen MD Unavailable Unavailable Rudy Andersen MD Unavailable Unavailable Rudy Andersen MD Unavailable Unavailable Rudy Andersen MD Unavailable Unavailable Rudy Andersen MD Unavailable Unavailable Rudy Andersen MD Unavailable Unavailable Rudy Andersen MD Unavailable Unavailable Rudy Andersen MD Unavailable Unavailable Rudy Andersen MD Unavailable Unavailable Rudy Andersen MD Unavailable Unavailable Rudy Andersen MD Unavailable Unavailable Rudy Andersen MD Unavailable Unavailable Rudy Andersen MD Unavailable Unavailable Rudy Andersen MD Unavailable Unavailable Rudy Andersen MD Unavailable Unavailable Rudy Andersen MD Unavailable Unavailable Rudy Andersen MD Unavailable Unavailable Rudy Andersen MD Unavailable Unavailable Rudy Andersen MD Unavailable Unavailable Rudy Andersen MD Unavailable Unavailable Rudy Andersen MD Unavailable Unavailable Rudy Andersen MD Unavailable Unavailable Rudy Andersen MD Unavailable Unavailable Rudy Andersen MD Unavailable Unavailable Rudy Andersen MD Unavailable Unavailable Rudy Andersen MD Unavailable Unavailable Rudy Andersen MD Unavailable Unavailable Rudy Andersen MD Unavailable Unavailable Rudy Andersen MD Unavailable Unavailable Rudy Andersen MD Unavailable Unavailable Rudy Andersen MD Unavailable Unavailable Rudy Andersen MD Unavailable Unavailable Rudy Andersen MD Unavailable Unavailable Rudy Andersen MD Unavailable Unavailable Rudy Andersen MD Unavailable Unavailable Rudy Andersen MD Unavailable Unavailable Rudy Andersen MD Unavailable Unavailable Rudy Andersen MD Unavailable Unavailable Rudy Andersen MD Unavailable Unavailable Rudy Andersen MD Unavailable Unavailable Slezka, Vojtech MD Unavailable Unavailable Rudy Andersen MD Unavailable Unavailable Rudy Andersen MD Unavailable Unavailable Rudy Andersen MD Unavailable Unavailable Valentin, M Kia RPA Unavailable Unavailable Valentin, M Kia RPA Unavailable Unavailable Valentin, M Kia RPA Unavailable Unavailable Valentin, M Kia RPA Unavailable Unavailable Valentin, M Kia RPA Unavailable Unavailable Valentin, M Kia RPA Unavailable Unavailable Valentin, M Kia RPA Unavailable Unavailable Valentin, M Kia RPA Unavailable Unavailable Valentin, M Kia RPA Unavailable Unavailable Valentin, M Kia RPA Unavailable Unavailable Valentin, M Kia RPA Unavailable Unavailable Valentin, M Kia RPA Unavailable Unavailable Valentin, M Kia RPA Unavailable Unavailable Valentin, M Kia RPA Unavailable Unavailable Valentin, M Kia RPA Unavailable Unavailable Valentin, M Kia RPA Unavailable Unavailable Valentin, M Kia RPA Unavailable Unavailable Valentin, M Kia RPA Unavailable Unavailable Valentin, M Kia RPA Unavailable Unavailable Valentin, M Kia RPA Unavailable Unavailable Valentin, M Kia RPA Unavailable Unavailable Valentin, M Kia RPA Unavailable Unavailable Valentin, M Kia RPA Unavailable Unavailable Valentin, M Kia RPA Unavailable Unavailable Valentin, M Kia RPA Unavailable Unavailable Valentin, M Kia RPA Unavailable Unavailable Valentin, M Kia RPA Unavailable Unavailable Valentin, M Kia RPA Unavailable Unavailable Valentin, M Kia RPA Unavailable Unavailable Valentin, M Kia RPA Unavailable Unavailable Valentin, M Kia RPA Unavailable Unavailable Valentin, M Kia RPA Unavailable Unavailable Valenitn, M Kia RPA Unavailable Unavailable Valentin, M Kia RPA Unavailable Unavailable Valentin, M Kia RPA Unavailable Unavailable Valentin, M Kia RPA Unavailable Unavailable Valentin, M Kia RPA Unavailable Unavailable Valentin, M Kia RPA Unavailable Unavailable Valentin, M Kia RPA Unavailable Unavailable Valentin, M Kia RPA Unavailable Unavailable Valentin, M Kia RPA Unavailable Unavailable Valentin, M Kia RPA Unavailable Unavailable Valentin, M Kia RPA Unavailable Unavailable Valentin, M Kia RPA Unavailable Unavailable Valentin, M Kia RPA Unavailable Unavailable Valentin, M Kia RPA Unavailable Unavailable Valentin, M Kia RPA Unavailable Unavailable Valentin, M Kia RPA Unavailable Unavailable Valentin, M Kia RPA Unavailable Unavailable Valentin, M Kia RPA Unavailable Unavailable Valentin, M Kia RPA Unavailable Unavailable Valentin, M Kia RPA Unavailable Unavailable LETTIERE, A GAVIN PA Unavailable Unavailable LETTIERE, A GAVIN PA Unavailable Unavailable LETTIERE, A GAVIN PA Unavailable Unavailable LETTIERE, A GAVIN PA Unavailable Unavailable LETTIERE, A GAVIN PA Unavailable Unavailable LETTIERE, A GAVIN PA Unavailable Unavailable LETTIERE, A GAVIN PA Unavailable Unavailable LETTIERE, A GAVIN PA Unavailable Unavailable LETTIERE, A GAVIN PA Unavailable Unavailable LETTIERE, A GAVIN PA Unavailable Unavailable LETTIERE, A GAVIN PA Unavailable Unavailable LETTIERE, A GAVIN PA Unavailable Unavailable LETTIERE, A GAVIN PA Unavailable Unavailable LETTIERE, A GAVIN PA Unavailable Unavailable LETTIERE, A GAVIN PA Unavailable Unavailable LETTIERE, A GAVIN PA Unavailable Unavailable LETTIERE, A GAVIN PA Unavailable Unavailable LETTIERE, A GAVIN PA Unavailable Unavailable LETTIERE, A GAVIN PA Unavailable Unavailable LETTIERE, A GAVIN PA Unavailable Unavailable LETTIERE, A GAVIN PA Unavailable Unavailable LETTIERE, A GAVIN PA Unavailable Unavailable LETTIERE, A GAVIN PA Unavailable Unavailable LETTIERE, A GAVIN PA Unavailable Unavailable LETTIERE, A GAVIN PA Unavailable Unavailable LETTIERE, A GAVIN PA Unavailable Unavailable LETTIERE, A GAVIN PA Unavailable Unavailable LETTIERE, A GAVIN PA Unavailable Unavailable LETTIERE, A GAVIN PA Unavailable Unavailable LETTIERE, A GAVIN PA Unavailable Unavailable LETTIERE, A GAVIN PA Unavailable Unavailable EMILY (MRANI), Lilibeth FRANCES MD Unavailable Unavailab le EMILY (MARNI), Lilibeth FRANCES MD Unavailable Unavailab le EMILY (MARNI), Lilibeth FRANCES MD Unavailable Unavailab le EMILY (MARNI), Lilibeth FRANCES MD Unavailable Unavailab le EMILY (MARNI), Lilibeth FRANCES MD Unavailable Unavailab le EMILY (MARNI), Lilibeth FRANCES MD Unavailable Unavailab le EMILY (MARNI), Lilibeth FRANCES MD Unavailable Unavailab le EMILY (MARNI), Lilibeth FRANCES MD Unavailable Unavailab le EMILY (MARNI), Lilibeth FRANCES MD Unavailable Unavailab le EMILY (MARNI), Lilibeth FRANCES MD Unavailable Unavailab le EMILY (MARNI), Lilibeth FRANCES MD Unavailable Unavailab le EMILY (MARNI), Lilibeth FRANCES MD Unavailable Unavailab le EMILY (MARNI), Lilibeth FRANCES MD Unavailable Unavailab le EMILY (MARNI), Lilibeth FRANCES MD Unavailable Unavailab le EMILY (MARNI), Lilibeth FRANCES MD Unavailable Unavailab le EMILY (MARNI), Lilibeth FRANCES MD Unavailable Unavailab le EMILY (MARNI), Lilibeth FRANCES MD Unavailable Unavailab le EMILY (MARNI), Lilibeth FRANCES MD Unavailable Unavailab le EMILY (MARNI), Lilibeth FRANCES MD Unavailable Unavailab le EMILY (MARNI), Lilibeth FRANCES MD Unavailable Unavailab le EMILY (MARNI), Lilibeth FRANCES MD Unavailable Unavailab le EMILY (MARNI), Lilibeth FRANCES MD Unavailable Unavailab le EMILY (MARNI), Lilibeth FRANCES MD Unavailable Unavailab le EMILY (MARNI), Lilibeth FRANCES MD Unavailable Unavailab le EMILY (MARNI), Lilibeth FRANCES MD Unavailable Unavailab le EMILY (MARNI), Lilibeth FRANCES MD Unavailable Unavailab le EMILY (MARNI), Lilibeth FRANCES MD Unavailable Unavailab le EMILY (MARNI), Lilibeth FRANCES MD Unavailable Unavailab le EMILY (MARNI), Lilibeth FRANCES MD Unavailable Unavailab le EMILY (MARNI), Lilibeth FRANCES MD Unavailable Unavailab le EMILY (MARNI), Lilibeth FRANCES MD Unavailable Unavailab le EMILY (MARNI), Lilibeth FRANCES MD Unavailable Unavailab le EMILY (MARNI), Lilibeth FRANCES MD Unavailable Unavailab le EMILY (MARNI), Lilibeth FRANCES MD Unavailable Unavailab le EMILY (MARNI), Lilibeth FRANCES MD Unavailable Unavailab le EMILY (MARNI), Lilibeth FRANCES MD Unavailable Unavailab le EMILY (MARNI), Lilibeth FRANCES MD Unavailable Unavailab le EMILY (MARNI), Lilibeth FRANCES MD Unavailable Unavailab le EMILY (MARNI), Lilibeth FRANCES MD Unavailable Unavailab le EMILY (MARNI), Lilibeth FRANCES MD Unavailable Unavailab le EMILY (MARNI), Lilibeth FRANCES MD Unavailable Unavailab le EMILY (MARNI), Lilibeth FRANCES MD Unavailable Unavailab le EMILY (MARNI), Lilibeth FRANCES MD Unavailable Unavailab le EMILY (MARNI), Lilibeth FRANCES MD Unavailable Unavailab le EMILY (MARNI), Lilibeth FRANCES MD Unavailable Unavailab le EMILY (MARNI), Lilibeth FRANCES MD Unavailable Unavailab le EMILY (MARNI), Lilibeth FRANCES MD Unavailable Unavailab le EMILY (MARNI), Lilibeth FRANCES MD Unavailable Unavailab le EMILY (MARNI), Lilibeth FRANCES MD Unavailable Unavailab le EMILY (MARNI), Lilibeth FRANCES MD Unavailable Unavailab le EMILY (MARNI), Lilibeth FRANCES MD Unavailable Unavailab le EMILY (MARNI), Lilibeth FRANCES MD Unavailable Unavailab le EMILY (MARNI), Lilibeth FRANCES MD Unavailable Unavailab le EMILY (MARNI), Lilibeth FRANCES MD Unavailable Unavailab le EMILY (MARNI), Lilibeth FRANCES MD Unavailable Unavailab le EMILY (MARNI), Lilibeth FRANCES MD Unavailable Unavailab le EMILY (MARNI), Lilibeth FRANCES MD Unavailable Unavailab le EMILY (MARNI), Lilibeth FRANCES MD Unavailable Unavailab le EMILY (MARNI), Lilibeth FRANECS MD Unavailable Unavailab le EMILY (MARNI), Lilibeth FRANCES MD Unavailable Unavailab le EMILY (MARNI), Lilibeth FRANCES MD Unavailable Unavailab le EMILY (MARNI), Lilibeth FRANCES MD Unavailable Unavailab le EMILY (MARNI), Lilibeth FRANCES MD Unavailable Unavailab le EMILY (MARNI), Lilibeth FRANCES MD Unavailable Unavailab le EMILY (MARNI), Lilibeth FRANCES MD Unavailable Unavailab le EMILY (MARNI), Lilibeth FRANCES MD Unavailable Unavailab le EMILY (MARNI), Lilibeth FRANCES MD Unavailable Unavailab le EMILY (MARNI), Lilibeth FRANCES MD Unavailable Unavailab le EMILY (MARNI), Lilibeth FRANCES MD Unavailable Unavailab le EMILY (MARNI), Lilibeth FRANCES MD Unavailable Unavailab le EMILY (MARNI), Lilibeth FRANCES MD Unavailable Unavailab le EMILY (MARNI), Lilibeth FRANCES MD Unavailable Unavailab le EMILY (MARNI), Lilibeth FRANCES MD Unavailable Unavailab le EMILY (MARNI), Lilibeth FRANCES MD Unavailable Unavailab le EMILY (MARNI), Lilibeth FRANCES MD Unavailable Unavailab le EMILY (MARNI), Lilibeth FRANCES MD Unavailable Unavailab le EMILY (MARNI), Lilibeth FRANCES MD Unavailable Unavailab le EMILY (MARNI), Lilibeth FRANCES MD Unavailable Unavailab le EMILY (MARNI), Lilibeth FRANCES MD Unavailable Unavailab le EMILY (MARNI), Lilibeth FRANCES MD Unavailable Unavailab le EMILY (MARNI), Lilibeth FRANCES MD Unavailable Unavailab le EMILY (MARNI), Lilibeth FRANCES MD Unavailable Unavailab le EMILY (MARNI), Lilibeth FRANCES MD Unavailable Unavailab le EMILY (MARNI), Lilibeth FRANCES MD Unavailable Unavailab le EMILY (MARNI), Lilibeth FRANCES MD Unavailable Unavailab le EMILY (MARNI), Lilibeth FRANCES MD Unavailable Unavailab le EMILY (MARNI), Lilibeth FRANCES MD Unavailable Unavailab le Feola, T Marii PA Unavailable Unavailable Feola, T Marii PA Unavailable Unavailable Feola, T Marii PA Unavailable Unavailable Feola, T Marii PA Unavailable Unavailable Feola, T Marii PA Unavailable Unavailable Feola, T Marii PA Unavailable Unavailable Feola, T Marii PA Unavailable Unavailable Feola, T Marii PA Unavailable Unavailable Feola, T Marii PA Unavailable Unavailable Feola, T Marii PA Unavailable Unavailable Feola, T Marii PA Unavailable Unavailable Feola, T Marii PA Unavailable Unavailable Feola, T Marii PA Unavailable Unavailable Feola, T Marii PA Unavailable Unavailable Feola, T Marii PA Unavailable Unavailable Feola, T Marii PA Unavailable Unavailable Feola, T Marii PA Unavailable Unavailable Feola, T Marii PA Unavailable Unavailable Feola, T Marii PA Unavailable Unavailable Feola, T Marii PA Unavailable Unavailable Feola, T Marii PA Unavailable Unavailable Feola, T Marii PA Unavailable Unavailable Feola, T Marii PA Unavailable Unavailable Feola, T Marii PA Unavailable Unavailable Feola, T Marii PA Unavailable Unavailable Feola, T Marii PA Unavailable Unavailable Feola, T Marii PA Unavailable Unavailable Feola, T Marii PA Unavailable Unavailable Feola, T Marii PA Unavailable Unavailable Feola, T Marii PA Unavailable Unavailable Feola, T Marii PA Unavailable Unavailable Feola, T Marii PA Unavailable Unavailable Feola, T Marii PA Unavailable Unavailable Feola, T Marii PA Unavailable Unavailable Feola, T Marii PA Unavailable Unavailable Feola, T Marii PA Unavailable Unavailable Feola, T Marii PA Unavailable Unavailable Feola, T Marii PA Unavailable Unavailable Feola, T Marii PA Unavailable Unavailable Feola, T Marii PA Unavailable Unavailable Feola, T Marii PA Unavailable Unavailable Chintan De La Vega MD Unavailable Unavailable Chintan De La Vega MD Unavailable Unavailable Chintan De La Vega MD Unavailable Unavailable Chintan De La Vega MD Unavailable Unavailable Chintan De La Vega MD Unavailable Unavailable Chintan De La Vega MD Unavailable Unavailable Chintan De La Vega MD Unavailable Unavailable Chintan De La Vega MD Unavailable Unavailable Chintan De La Vega MD Unavailable Unavailable Chintan De La Vega MD Unavailable Unavailable Chintan De La Vega MD Unavailable Unavailable Chintan De La Vega MD Unavailable Unavailable Chintan De La Vega MD Unavailable Unavailable Chintan De La Vega MD Unavailable Unavailable Chintan De La Vega MD Unavailable Unavailable Chintan De La Vega MD Unavailable Unavailable Chintan De La Vega MD Unavailable Unavailable Chintan De La Vega MD Unavailable Unavailable Ceferino B Alena VERONICA Unavailable Unavailable Chintan De La Vega MD Unavailable Unavailable Ceferino B Alena VERONICA Unavailable Unavailable Ceferino Chintan Carvajal MD Unavailable Unavailable Fish, B Alena VERONICA Unavailable Unavailable Fish, B Alena VERONICA Unavailable Unavailable Fish, B Alena VERONICA Unavailable Unavailable Fish, B Alena VERONICA Unavailable Unavailable Fish, B Alena VERONICA Unavailable Unavailable Fish, B Alena VERONICA Unavailable Unavailable Fish, B Alena VERONICA Unavailable Unavailable Fish, B Alena VERONICA Unavailable Unavailable Fish, B Alena VERONICA Unavailable Unavailable Fish, B Alena VERONICA Unavailable Unavailable Fish, B Alena VERONICA Unavailable Unavailable Fish, B Alena VERONICA Unavailable Unavailable Fish, B Alena VERONICA Unavailable Unavailable Fish, B Alena VERONICA Unavailable Unavailable Fish, B Alena VERONICA Unavailable Unavailable Fish, B Alena VERONICA Unavailable Unavailable Fish, B Alena VERONICA Unavailable Unavailable Fish, B Alena VERONICA Unavailable Unavailable Fish, B Alena VERONICA Unavailable Unavailable Fish, B Alena VERONICA Unavailable Unavailable Fish, B Alena VERONICA Unavailable Unavailable Fish, B Alena VERONICA Unavailable Unavailable Fish, B Alena VERONICA Unavailable Unavailable Fish, B Alena VERONICA Unavailable Unavailable Fish, B Alena VERONICA Unavailable Unavailable Fish, B Alena VERONICA Unavailable Unavailable Fish, B Alena VERONICA Unavailable Unavailable Fish, B Alena VERONICA Unavailable Unavailable Fish, B Alena VERONICA Unavailable Unavailable Fish, B Alena VERONICA Unavailable Unavailable Fish, B Alena VERONICA Unavailable Unavailable Fish, B Alena VERONICA Unavailable Unavailable Fish, B Alena VERONICA Unavailable Unavailable Fish, B Alena VERONICA Unavailable Unavailable Fish, B Alena VERONICA Unavailable Unavailable Fish, B Alena VERONICA Unavailable Unavailable Fish, B Alena VERONICA Unavailable Unavailable Fish, B Alena VERONICA Unavailable Unavailable Fish, B Alena VERONICA Unavailable Unavailable Fish, B Alena VERONICA Unavailable Unavailable Fish, B Alena VERONICA Unavailable Unavailable Fish, B Alena VERONICA Unavailable Unavailable Fish, B Alena VERONICA Unavailable Unavailable O'therese, A Gavin PA Unavailable Unavailable O'therese, A Gavin PA Unavailable Unavailable O'therese, A Gavin PA Unavailable Unavailable O'therese, A Gavin PA Unavailable Unavailable O'therese, A Gavin PA Unavailable Unavailable O'therese, A Gavin PA Unavailable Unavailable O'therese, A Gavin PA Unavailable Unavailable O'therese, A Gavin PA Unavailable Unavailable O'therese, A Gavin PA Unavailable Unavailable O'therese, A Gavin PA Unavailable Unavailable O'therese, A Gavin PA Unavailable Unavailable O'therese, A Gavin PA Unavailable Unavailable O'therese, A Gavin PA Unavailable Unavailable O'therese, A Gavin PA Unavailable Unavailable O'therese, A Gavin PA Unavailable Unavailable O'therese, A Gavin PA Unavailable Unavailable O'therese, A Gavin PA Unavailable Unavailable O'therese, A Gavin PA Unavailable Unavailable O'therese, A Gavin PA Unavailable Unavailable O'therese, A Gavin PA Unavailable Unavailable O'therese, A Gavin PA Unavailable Unavailable O'therese, A Gavin PA Unavailable Unavailable O'therese, A Gavin PA Unavailable Unavailable O'therese, A Gavin PA Unavailable Unavailable O'therese, A Gavin PA Unavailable Unavailable O'therese, A Gavin PA Unavailable Unavailable O'therese, A Gavin PA Unavailable Unavailable O'therese, A Gavin PA Unavailable Unavailable O'therese, A Gavin PA Unavailable Unavailable O'therese, A Gavin PA Unavailable Unavailable O'therese, A Gavin PA Unavailable Unavailable O'therese, A Gavin PA Unavailable Unavailable O'therese, A Gavin PA Unavailable Unavailable Favio Mark MD Unavailable Unavailable Favio Mark MD Unavailable Unavailable Favio Mark MD Unavailable Unavailable Favio Mark MD Unavailable Unavailable Favio Mark MD Unavailable Unavailable Favio Mark MD Unavailable Unavailable Favio Mark MD Unavailable Unavailable Favio Mark MD Unavailable Unavailable Favio Mark MD Unavailable Unavailable Favio Mark MD Unavailable Unavailable Favio Mark MD Unavailable Unavailable Favio Mrak MD Unavailable Unavailable Favio Mark MD Unavailable Unavailable Favio Mark MD Unavailable Unavailable Favio Mark MD Unavailable Unavailable Jas, Favio Ayala MD Unavailable Unavailable Favio Mark MD Unavailable Unavailable Favio Mark MD Unavailable Unavailable Favio Mark MD Unavailable Unavailable Favio Mark MD Unavailable Unavailable Favio Mark MD Unavailable Unavailable Favio Mark MD Unavailable Unavailable Favio Mark MD Unavailable Unavailable Favio Mark MD Unavailable Unavailable Favio Mark MD Unavailable Unavailable Favio Mark MD Unavailable Unavailable Favio Mark MD Unavailable Unavailable Favio Mark MD Unavailable Unavailable Favio Mark MD Unavailable Unavailable Favio Mark MD Unavailable Unavailable Favio Mark MD Unavailable Unavailable Favio Mark MD Unavailable Unavailable Favio Mark MD Unavailable Unavailable Favio Mark MD Unavailable Unavailable Favio Mark MD Unavailable Unavailable Favio Mark MD Unavailable Unavailable Favio Mark MD Unavailable Unavailable Favio Mark MD Unavailable Unavailable Favio Mark MD Unavailable Unavailable Favio Mark MD Unavailable Unavailable Favio Mark MD Unavailable Unavailable Favio Mark MD Unavailable Unavailable Favio Mark MD Unavailable Unavailable Favio Mark MD Unavailable Unavailable Favio Mark MD Unavailable Unavailable Favio Mark MD Unavailable Unavailable Favio Mark MD Unavailable Unavailable Favio Mark MD Unavailable Unavailable Favio Mark MD Unavailable Unavailable Favio Mark MD Unavailable Unavailable Favio Mark MD Unavailable Unavailable Jas, Favio Ayala MD Unavailable Unavailable Jas, Favio Ayala MD Unavailable Unavailable Favio Mark MD Unavailable Unavailable JOSSUE-ANDREW, SOFIA DO Unavailable Unavailable JOSSUE-ANDREW, SOFIA DO Unavailable Unavailable JOSSUE-ANDREW, SOFIA DO Unavailable Unavailable JOSSUE-ANDREW, SOFIA DO Unavailable Unavailable JOSSUE-ANDREW, SOFIA DO Unavailable Unavailable JOSSUE-ANDREW, SOFIA DO Unavailable Unavailable JOSSUE-ANDREW, SOFIA DO Unavailable Unavailable JOSSUE-ANDREW, SOFIA DO Unavailable Unavailable JOSSUE-ANDREW, SOFIA DO Unavailable Unavailable JOSSUE-ANDREW, SOFIA DO Unavailable Unavailable JOSSUE-ANDREW, SOFIA DO Unavailable Unavailable JOSSUE-ANDREW, SOFIA DO Unavailable Unavailable JOSSUE-ANDREW, SOFIA DO Unavailable Unavailable JOSSUE-ANDREW, SOFIA DO Unavailable Unavailable JOSSUE-ANDREW, SOFIA DO Unavailable Unavailable JOSSUE-ANDREW, SOFIA DO Unavailable Unavailable JOSSUE-ANDREW, SOFIA DO Unavailable Unavailable JOSSUE-ANDREW, SOFIA DO Unavailable Unavailable JOSSUE-ANDREW, SOFIA DO Unavailable Unavailable JOSSUE-ANDREW, SOFIA DO Unavailable Unavailable JOSSUE-ANDREW, SOFIA DO Unavailable Unavailable JOSSUE-ANDREW, SOFIA DO Unavailable Unavailable JOSSUE-ANDREW, SOFIA DO Unavailable Unavailable JOSSUE-ANDREW, SOFIA DO Unavailable Unavailable JOSSUE-ANDREW, SOFIA DO Unavailable Unavailable JOSSUE-ANDREW, SOFIA DO Unavailable Unavailable JOSSUE-ANDREW, SOFIA DO Unavailable Unavailable JOSSUE-ANDREW, SOFIA DO Unavailable Unavailable JOSSUE-ANDREW, SOFIA DO Unavailable Unavailable JOSSUE-ANDREW, SOFIA DO Unavailable Unavailable JOSSUE-ANDREW, SOFIA DO Unavailable Unavailable JOSSUE-ANDREW, SOFIA DO Unavailable Unavailable JOSSUE-ANDREW, SOFIA DO Unavailable Unavailable JOSSUE-ANDREW, SOFIA DO Unavailable Unavailable JOSSUE-NADREW, SOFIA DO Unavailable Unavailable JOSSUE-ANDREW, SOFIA DO Unavailable Unavailable JOSSUE-ANDREW, SOFIA DO Unavailable Unavailable JOSSUE-ANDREW, SOFIA DO Unavailable Unavailable JOSSUE-ANDREW, SOFIA DO Unavailable Unavailable JOSSUE-ANDREW, SOFIA DO Unavailable Unavailable JOSSUE-ANDREW, SOFIA DO Unavailable Unavailable JOSSUE-ANDREW, SOFIA DO Unavailable Unavailable JOSSUE-ANDREW, SOFIA DO Unavailable Unavailable JOSSUE-ANDREW, SOFIA DO Unavailable Unavailable JOSSUE-ANDREW, SOFIA DO Unavailable Unavailable JOSSUE-ANDREW, SOFIA DO Unavailable Unavailable JOSSUE-ANDREW, SOFIA DO Unavailable Unavailable JOSSUE-ANDREW, SOFIA DO Unavailable Unavailable JOSSUE-ANDREW, SOFIA DO Unavailable Unavailable JOSSUE-ANDREW, SOFIA DO Unavailable Unavailable JOSSUE-ANDREW, SOFIA DO Unavailable Unavailable JOSSUE-ANDREW, SOFIA DO Unavailable Unavailable JOSSUE-ANDREW, SOFIA DO Unavailable Unavailable JOSSUE-ANDREW, SOFIA DO Unavailable Unavailable JOSSUE-ANDREW, SOFIA DO Unavailable Unavailable JOSSUE-ANDREW, SOFIA DO Unavailable Unavailable JOSSUE-ANDREW, SOFIA DO Unavailable Unavailable JOSSUE-ANDREW, SOFIA DO Unavailable Unavailable JOSSUE-ANDREW, SOFIA DO Unavailable Unavailable JOSSUE-ANDREW, SOFIA DO Unavailable Unavailable JOSSUE-ANDREW, SOFIA DO Unavailable Unavailable JOSSUE-ANDREW, SOFIA DO Unavailable Unavailable JOSSUE-ANDREW, SOFIA DO Unavailable Unavailable JOSSUE-ANDREW, SOFIA DO Unavailable Unavailable JOSSUE-ANDREW, SOFIA DO Unavailable Unavailable JOSSUE-ANDREW, SOFIA DO Unavailable Unavailable JOSSUE-ANDREW, SOFIA DO Unavailable Unavailable JOSSUE-ANDREW, SOFIA DO Unavailable Unavailable JOSSUE-ANDREW, SOFIA DO Unavailable Unavailable JOSSUE-ANDREW, SOFIA DO Unavailable Unavailable JOSSUE-ANDREW, SOFIA DO Unavailable Unavailable JOSSUE-ANDREW, SOFIA DO Unavailable Unavailable JOSSUE-ANDREW, SOFIA DO Unavailable Unavailable JOSSUE-ANDREW, SOFIA DO Unavailable Unavailable JOSSUE-ANDREW, SOFIA DO Unavailable Unavailable JOSSUE-ANDREW, SOFIA DO Unavailable Unavailable JOSSUE-ANDREW, SOFIA DO Unavailable Unavailable JOSSUE-ANDREW, SOFIA DO Unavailable Unavailable JOSSUE-ANDREW, SOFIA DO Unavailable Unavailable JOSSUE-ANDREW, SOFIA DO Unavailable Unavailable JOSSUE-ANDREW, SOFIA DO Unavailable Unavailable JOSSUE-ANDREW, SOFIA DO Unavailable Unavailable JOSSUE-ANDREW, SOFIA DO Unavailable Unavailable JOSSUE-ANDREW, SOFIA DO Unavailable Unavailable Re-disclosure Warning The records that you are about to access may contain information from federally-assisted alcohol or drug abuse programs. If such information is present, then the following federally mandated warning applies: This information has been disclosed to you from records protected by federal confidentiality rules (42 CFR part 2). The federal rules prohibit you from making any further disclosure of this information unless further disclosure is expressly permitted by the written consent of the person to whom it pertains or as otherwise permitted by 42 CFR part 2. A general authorization for the release of medical or other information is NOT sufficient for this purpose. The Federal rules restrict any use of the information to criminally investigate or prosecute any alcohol or drug abuse patient.The records that you are about to access may contain highly sensitive health information, the redisclosure of which is protected by Article 27-F of the [facility] Public Health law. If you continue you may have access to information: Regarding HIV / AIDS; Provided by facilities licensed or operated by the [facility] Office of Mental Health; or Provided by the [facility] Office for People With Developmental Disabilities. If such information is present, then the following [facility] mandated warning applies: This information has been disclosed to you from confidential records which are protected by state law. State law prohibits you from making any further disclosure of this information without the specific written consent of the person to whom it pertains, or as otherwise permitted by law. Any unauthorized further disclosure in violation of state law may result in a fine or fci sentence or both. A general authorization for the release of medical or other information is NOT sufficient authorization for further disc losure. Allergies and Adverse Reactions Type Description Substance Reaction Status Data Source(s ) Drug allergy Iodine Tincture External Iodine Tincture Acti ve IZABEL (Brandon Duran MD [facility]) Drug allergy Duramorph Morphine Sulfate Active GREENW AY (Brandon Duran MD [facility]) Drug allergy Sulfa drug Oral Capsule Sulfa drug Active IZABEL (Brandon Duran MD [facility]) Family History Family Member Name Family Member Gender Family Member Status Date o f Status Description Data Source(s) Unknown Unknown Problem [facility] (Isak alvarez [employer]) Encounters Encounter Providers Location Date Indications Data Source(s ) Outpatient [facility] 06/05/2021 12:00:00 AM EDT [facility] Outpatient SJP.STEPH-SJP.STEPH 05/29/2021 12:00:00 AM EDT [facility] Outpatient SJP.STEPH-SJP.STEPH 05/22/2021 12:00 :00 AM EDT - 05/22/2021 09:05:44 AM EDT [facility] Outpatient Attender: Gavin ZARATE [facility] 05/20/2021 03:40:00 PM EDT [facility] ([facility]) Outpatient SJP.STEPH-SJP.STEPH 05/15/2021 12:00:00 AM EDT [facility] Outpatient SJP.STEPH-SJP.STEPH 05/08/2021 08:33:00 AM EDT [facility] Outpatient Attender: Gavin ZARATE [facility] 05/07/2021 09:30:00 AM EDT [facility] ([facility]) Outpatient Attender: Rudy CARPENTER.STEPH-SJP.STEPH 04/04 12:00:00 AM EDT - 05/01/2021 10:42:39 AM EDT [facility] Outpatient SJP.STEPH-SJP.STEPH 04/24/2021 08:42:19 AM EDT [facility] Outpatient SJP.STEPH-SJP.STEPH 04/10/2021 12:00:00 AM EDT [facility] Outpatient Attender: Gavin ZARATE [facility] 04/09/2021 09:20:00 AM EDT [facility] ([facility]) Outpatient SJP.STEPH-SJP.STEPH 04/03/2021 12:00:00 AM EDT [facility] Outpatient Att[facility]: [facility] MDAdmitter: JUAN DANIEL DIAZ MD ([place]) [email or web address] 03/31/2021 12:01:[address] [facility] Outpatient SJP.STEPH-SJP.STEPH 03/27/2021 12:00:00 AM EDT [facility] Outpatient SJP.STEPH-SJP.STEPH 03/20/2021 12:00:00 AM EDT [facility] Outpatient SJP.STEPH-SJP.STEPH 03/13/2021 11:22:26 AM EDT [facility] Attender: JUAN DANIEL LANGSTON) MDReferrer: J ILL JOSSUE-ANDREW DO 03/04/2021 08:21:08 PM EDT [facility] Attender: JUAN DANIEL LANGSTON) MDReferrer: J ILL JOSSUE-ANDREW DO 03/04/2021 08:21:08 PM EDT [facility] Attender: JUAN DANIEL LANGSTON) MDReferrer: J ILL JOSSUE-ANDREW DO 03/04/2021 08:21:08 PM EDT [facility] Attender: JUAN DANIEL LANGSTON) MDReferrer: J ILL JOSSUE-ANDREW DO 03/04/2021 08:21:08 PM EDT [facility] Attender: JUAN DANIEL LANGSTON) MDReferrer: J ILL JOSSUE-ANDREW DO 03/04/2021 08:21:08 PM EDT [facility] Attender: JUAN DANIEL LANGSTON) MDReferrer: J ILL JOSSUE-ANDREW DO 03/04/2021 08:21:08 PM EDT [facility] Attender: JUAN DANIEL LANGSTON) MDReferrer: Alina Hamm 03/04/2021 08:21:08 PM EDT [facility] Attender: JUAN DANIEL LANGSTON) MDReferrer: Alina Hamm 03/04/2021 08:21:08 PM EDT [facility] Outpatient Referrer: JUAN DANIEL DIAZ MD ([place]) 11:10:24 AM EDT [facility] Outpatient Attender: Gavin ZARATE [facility] 02/28/2021 01:20:00 PM EDT [facility] ([facility]) Outpatient SJP.STEPH-SJP.STEPH 02/26/2021 12:00:00 AM EDT [facility] Outpatient Attender: Gavin ZARATE [facility] 02/17/2021 09:20:00 AM EDT [facility] ([facility]) Outpatient Attender: Alena De La Vega MD Physical Therapy 02/17 09:00:00 AM EDT [facility] ([facility] ) Outpatient Attender: Jamie Griggs/Preethi/Ramón/R robertndporfirio 02/13/2021 03:00:00 PM EDT [facility] ([facility]) Outpatient SJP.STEPH-SJP.STEPH 02/13/2021 12:00:00 AM EDT [facility] Outpatient Attender: Jamie Griggs/Preethi/Ramón/R eindl 02/11/2021 10:30:00 AM EDT [facility] ([facility]) Outpatient SJP.STEPH-SJP.STEPH 02/07/2021 10:09:17 AM EDT [facility] Outpatient SJP.STEPH-SJP.STEPH 01/30/2021 12:00:00 AM EDT [facility] Outpatient 01/27/2021 05:16:01 PM EDT [facility] ([facility]) Outpatient SJP.STEPH-SJP.STEPH 01/23/2021 12:00:00 AM EDT [facility] Outpatient SJP.STEPH-SJP.STEPH 01/16/2021 09:57:26 AM EDT [facility] Outpatient Attender: Rudy CARPENTER.STEPH-SJP.STEPH 12/31 12:00:00 AM EDT - 01/16/2021 11:51:00 AM EDT [facility] Outpatient SJP.STEPH-SJP.STEPH 01/08/2021 09:56:08 AM EDT [facility] Outpatient SJP.STEPH-SJP.STEPH 01/01/2021 10:40:26 AM EDT [facility] Outpatient Attender: Gavin ZARATE [facility] 01/01/2021 09:40:00 AM EDT [facility] [place] [address] [address] 12/23/2020 12:00:00 AM EDT eCW1 ([facility]) <td ID="encounterTypeDescriptionID0">IOP CHECK</td><td>Brandon Weiss MD, FACS</td><td>Brandon Weiss MD [facility]</td><td>12/19/2020</td><td>8:49AM</td><td>09/04/2020 11:59PM</td><td> <content ID="encounterDiagnosisID0-0">Glaucoma Open-angle Primary</content></td>Outpatient Attender: Brandon Duran MD, FACS Brandon Weiss MD [facility] 12/19/2020 08:49:00 AM EDT - 09/04/2020 11:59:00 PM ES T Glaucoma Open-angle Primary [place] (Brandon Duran MD [facility]) Glaucoma Open-angle Primary Outpatient Attender: Gavin ZARATE [facility] 12/18/2020 09:20:00 AM EDT [facility]) Outpatient SJP.STEPH-SJP.STEPH 12/18/2020 12:00:00 AM EDT [facility] Outpatient Attender: Gavin ZARATE [facility] 12/04/2020 11:30:00 AM EDT [facility] ([facility]) Attender: JUAN DANIEL LANGSTON) MDReferrer: Alina Hamm 11/26/2020 08:21:04 PM EDT [facility] Attender: JUAN DANIEL EMILY LANGSTON) MDReferrer: Alina Purcelln 11/26/2020 08:21:04 PM EDT [facility] Attender: JUAN DANIEL BUTTSMARCELLUS LANGSTON) MDReferrer: J ILL JOSSUE-ANDREW DO 11/26/2020 08:21:04 PM EDT [facility] Attender: JUAN DANIEL BUTTSELIN DebbieMARNI) MDReferrer: Alina ILL JOSSUE-ANDREW DO 11/26/2020 08:21:04 PM EDT [facility] Outpatient [facility]PH-S[facility].STEPH 11/19/2020 08:40:42 AM EDT [facility] Office Visit Attender: Charlene Cage MD Main office - [place] 11/11/2020 12:45:00 PM EDT [facility] ([facility] ) Outpatient SJP.STEPH-SJP.STEPH 11/08/2020 12:00:00 AM EDT [facility] Outpatient SJP.STEPH-SJP.STEPH 10/29/2020 02:19:55 PM EDT [facility] Outpatient [address] [facility] [address] 10/23/2020 12:00:00 AM EDT eCW1 ([facility]) Unknown [address] [address] 10/21/2020 12:00:00 AM EDT eCW1 ([facility]) [place] [address] [address] 10/21/2020 12:00:00 AM EDT eCW1 ([facility]) [place] [address] [address] 10/21/2020 12:00:00 AM EDT eCW1 ([facility]) Outpatient [address] [address] 10/18/2020 12:00:00 AM EDT eCW1 ([facility]) Unknown [address] [facility] [place] [address] 10/18/2020 12:00:00 AM EDT eCW1 ([facility]) TeleMedicine Phone E/M by Phys 11-20 Min [address] [place] [address] 10/16/2020 12:00:00 AM EDT eCW1 ([facility]) TeleMedicine Phone E/M by Phys 11-20 Min [address] [place] [address] 10/14/2020 12:00:00 AM EDT eCW1 ([facility]) Unknown [address] [facility] [address] 10/14/2020 12:00:00 AM EDT eCW1 ([facility]) Unknown [address] [facility] [address] 10/14/2020 12:00:00 AM EDT eCW1 ([facility]) Unknown [address] [facility] [place] [address] 10/14/2020 12:00:00 AM EDT eCW1 ([facility]) TeleMedicine Phone E/M by Phys 11-20 Min [address] [place] [address] 10/11/2020 12:00:00 AM EST eCW1 ([facility]) Outpatient Attender: Marii ZARATE 021 11:57:36 AM EST - 10/06/2020 01:17:44 PM EST [facility] ([facility] ) Outpatient Attender: Gavin ZARATE [facility] 10/01/2020 09:00:00 AM EST [facility] ([facility]) Outpatient SJP.STEPH-SJP.STEPH 10/01/2020 12:00:00 AM EST [facility] Office Visit Attender: Charlene Cage MD Main office - [place] 09/18/2020 11:15:00 AM EST [facility] ([facility]) Outpatient SJP.STEPH-SJP.STEPH 09/17/2020 12:00:00 AM EST [facility] Outpatient<td ID="encounterTypeDescripti onID1">TRIAGE NEW PATIENT</td><td>Brandon Weiss MD, FACS</td><td>Brandon Weiss MD [facility]</td><td>09/04/2020</td><td>9:23AM</td><td>11:21AM</td><td><content ID="encounterDiagnosisID1-0">Glaucoma Open-angle Primary</content>, <content ID="encounterDiagnosisID1-1">Cataract Senile Nuclear</content>, <content ID="encounterDiagnosisID1-2">Dry Eye Syndrome Both Eyes</content>, <content ID="encounterDiagnosisID1-3">Vitreous Disorders Degeneration</content></td> Attender: Brandon Duran MD, FACS Brandon Weiss MD [facility] 09/04/2020 09:23:0 0 AM EST - 09/04/2020 11:21:00 AM EST Vitreous Disorders DegenerationDry Eye Syndrome Both EyesCataract Senile NuclearGlaucoma Open-angle Primary IZABEL (Brandon Duran MD [facility]) 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 Cataract Senile Nuclear Glaucoma Open-angle Primary Outpatient Attender: Gavin ZARATE [facility] 09/02/2020 07:45:00 AM EST [facility] ([facility]) Outpatient SJP.STEPH-SJP.STEPH 09/02/2020 12:00:00 AM EST [facility] Outpatient Attender: Alena De La Vega MD Physical Therapy 08/15 08:45:00 AM EST [facility] ([facility]) Outpatient Attender: Gavin ZARATE [facility] 08/01/2020 08:20:00 AM EST [facility] ([facility]) Outpatient SJP.STEPH-SJP.STEPH 07/31/2020 12:00:00 AM EST [facility] Outpatient SJP.STEPH-SJP.STEPH 07/17/2020 10:53:37 AM EST [facility] Outpatient Attender: Rudy Andersen MD SJP.STEPH-SJP.STEPH 07/02 12:00:00 AM EST - 07/17/2020 11:58:54 AM EST [facility] Outpatient Attender: Tacos ZARATE [facility] 07/08/2020 03:00:00 PM EST [facility] ([facility]) Outpatient SJP.STEPH-SJP.STEPH 07/01/2020 12:00:00 AM EST [facility] Outpatient SJP.STEPH-SJP.STEPH 06/24/2020 12:00:00 AM EST [facility] Outpatient SJP.STEPH-SJP.STEPH 06/18/2020 08:36:18 AM EST [facility] Attender: JUAN DANIEL LANGSTON) MDReferrer: J ILL JOSSUE-ANDREW DO 05/28/2020 08:20:10 PM EDT [facility] Attender: JUAN DANIEL LANGSTON) MDReferrer: J ILL JOSSUE-ANDREW DO 05/28/2020 08:20:10 PM EDT [facility] Attender: JUAN DANIEL LANGSTON) MDReferrer: J ILL JOSSUE-ANDREW DO 05/28/2020 08:20:10 PM EDT [facility] Attender: JUAN DANIEL DIAZ ([place]) MDReferrer: J ILL JOSSUE-ANDREW DO 05/28/2020 08:20:10 PM EDT [facility] Out[facility] 05/16/2020 12:44:05 PM EDT [facility] Outpatient [facility] 05/16/2020 12:43:00 PM EDT [facility] Outpatient [facility] 05/16/2020 12:04:00 PM EDT [facility] Outpatient [facility] 05/16/2020 12:02:00 PM EDT [facility] Outpatient Attender: [facility] 05/16/2020 10:59:01 AM EDT [facility] Outpatient Attender: Kia Hanson [facility] 05/16/2020 08:58:00 AM EDT [facility] Outpatient Attender: ROYER ROGERS MD [facility] 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 Outpatient Attender: Gavin ZARATE [facility] 05/01/2020 09:20:00 AM EDT [facility] ([facility]) Outpatient SJTOMASA-SJP.STEPH 05/01/2020 12:00:00 AM EDT [facility] Outpatient Attender: Tacos ZARATE [facility] 04/24/2020 11:00:00 AM EDT [facility] ([facility]) Outpatient Attender: Rudy MENDOZA-SJP.STEPH 04/02 09:59:10 AM EDT [facility] Attender: JUAN DANIEL LANGSTON) MDReferrer: Alina CERVANTES DO 04/09/2020 08:20:09 PM EDT [facility] Attender: JUAN DANIEL DIAZ ([place]) MDReferrer: Alina CERVANTES DO 04/09/2020 08:20:09 PM EDT [facility] Immunizations Vaccine Date Status Description Data Source(s) VARICELLA-ZOSTER VIRUS GLYCOPROTEIN E,REC/AS01B ADJUVA NT/PF 09/11/2020 12:00:00 AM EST completed [facility] VARICELLA-ZOSTER VIRUS GLYCOPROTEIN E,REC/AS01B ADJUVA NT/PF 07/10/2020 12:00:00 AM EST completed [facility] Medications Medication Brand Name Start Date Product Form Dose Route Admi nistrative Instructions Pharmacy Instructions Status Indications Reaction Description Data Source(s) 100 mg 06/05/2021 12:00:00 AM EDT tablet sustained-releas e 12 hr 60 TAKE ONE TABLET BY MOUTH TWICE A DAY TAKE ONE TABLET BY MOUTH TWICE A DAY SOLD: 06/05/2021 [facility] 1 mg 06/05/2021 12:00:00 AM EDT tablet 120 TAKE TWO TABLETS BY MOUTH TWICE A DAY MAXIMUM DAILY DOSE = 4 TABLETS TAKE TWO TABLETS BY MOUTH TWICE A DAY NICKO XIMUM DAILY DOSE = 4 TABLETS SOLD: 06/05/2021 [facility] 50 mg 06/05/2021 12:00:00 AM EDT tablet 30 TAKE ONE TABLET BY MOUTH AT BEDTIME TAKE ONE TABLET BY MOUTH AT BEDTIME SOLD: 06/05/2021 [facility] 45 mcg/actuation 05/20/2021 12:00:00 AM EDT HFA aerosol inha ler 15 INHALE ONE TO TWO PUFFS BY MOUTH EVERY 4 TO 6 HOURS INHALE ONE TO TWO PUFFS BY MOUTH EVERY 4 TO 6 HOURS SOLD: 05/20/2021 [facility] 20 mg 05/20/2021 12:00:00 AM EDT tablet 10 TAKE TWO TABLETS BY MOUTH EVERY DAY FOR 5 DAYS TAKE TWO TABLETS BY MOUTH EVERY DAY FOR 5 DAYS SOLD: [facility] 200 mg 05/20/2021 12:00:00 AM EDT capsule 45 TAKE ONE CAPSULE BY MOUTH EVERY 8 HOURS NEEDED FOR COUGH TAKE ONE CAPSULE BY MOUTH EVERY 8 HOURS NEEDED FOR COUGH SOLD: 05/20/2021 [facility] benzonatate 200 MG Oral Capsule Benzonatate 05/20/2021 12:00:00 AM EDT active [facility] ([facility]) Prednisone 20 MG Oral Tablet Prednisone 05/20/2021 12:00:00 AM EDT ORAL completed [facility] ([facility]) 1 mg 05/08/2021 12:00:00 AM EDT tablet 30 TAKE ONE TABLET BY MOUTH EVERY DAY MAXIMUM DAILY DOSE = 1 CAPSULE TAKE ONE TABLET BY MOUTH EVERY DAY MAXIM UM DAILY DOSE = 1 CAPSULE SOLD: 05/09/2021 [facility] 1 mg 04/09/2021 12:00:00 AM EDT tablet 30 TAKE ONE TABLET BY MOUTH EVERY DAY MAXIMUM DAILY DOSE = 1 TABLET TAKE ONE TABLET BY MOUTH EVERY DAY MAXIM UM DAILY DOSE = 1 TABLET SOLD: 04/09/2021 [facility] levocetirizine dihydrochloride 5 MG Oral Tablet [Xyzal] Xyza l Allergy 24HR 04/09/2021 12:00:00 AM EDT ORAL active [facility] ([facility]) 12 HR CHLORPHENIRAMINE POLISTIREX 1.6 MG /ML / HYDROCODONE POLISTIREX 2 MG/ML Extended Release Suspension 10-8 mg/5 mL HYDROCODONE/CHLORPHEN P-STIREX 04/09/2021 12:00:00 AM EDT suspension,extended rel 12 hr 70 TAKE FIVE MILLILITERS BY MOUTH TWICE A DAY NEEDED FOR COUGH MAXIMUM DAILY DOSE = 10ML TAKE FIVE MILLILITERS BY MOUTH TWICE A DAY NEEDED FOR COUGH MAXIMUM DAILY DOSE = 10ML SOLD: 04/09/2021 [facility] 12 HR CHLORPHENIRAMINE POLISTIREX 1.6 MG /ML / HYDROCODONE POLISTIREX 2 MG/ML Extended Release Suspension Hydrocodone Polistirex/Chlorpheniramine Polistirex 02/28/2021 12:00:00 AM EDT active [facility] ([facility]) Warfarin Sodium 2 MG Oral Tablet warfarin (COUMADIN) 2 MG tablet warfarin (COUMADIN) 2 MG tablet 02/26/2021 12:00:00 AM EDT active One to two tabs daily as directed by manager placement [facility] 24 HR metoprolol succinate 25 MG Extende d Release Oral Tablet metoprolol succinate (TOPROL-XL) 25 MG 24 hr tablet metoprolol succinate (TOPROL-XL) 25 MG 24 hr tablet 02/26/2021 12:00:00 AM EDT 25 mg Oral activ e Take 1 tablet (25 mg total) by mouth daily [facility] Omeprazole 40 MG Delayed Release Oral Capsule Omeprazole 02/17/2021 12:00:00 AM EDT ORAL active [facility] ([facility]) Prolia [facility][NOTE 3]#[id number] (60mg Syringe)1MG 02/17/2021 12:00:00 AM EDT completed [facility] ([facility]) Medication administered onsite Warfarin Sodium 2.5 MG Oral Tablet warfarin (COUMADIN) 2.5 MG tablet warfarin (COUMADIN) 2.5 MG tablet 02/13/2021 12:00:00 AM EDT active One to two tabs daily as directed by manager placement [facility] Prednisone 20 MG Oral Tablet predniSONE (DELTASONE) 20 MG tablet predniSONE (DELTASONE) 20 MG tablet 01/16/2021 12:00:00 AM EDT 20 mg Oral active Take 1 tablet (20 mg total) by mouth daily for 6 days [facility] 120 ACTUAT Fluticasone propionate 0.045 MG/ACTUAT / salmeterol 0.021 MG/ACTUAT Metered Dose Inhaler [Advair] Advair HFA 01/07/2021 12:00:00 AM EDT RESPIRATORY active [facility] ( [facility]) benzonatate 100 MG Oral Capsule Benzonatate 01/01/2021 12:00:00 AM EDT ORAL completed [facility] ([facility]) 60 ACTUAT Fluticasone propionate 0.1 MG/ ACTUAT / salmeterol 0.05 MG/ACTUAT Dry Powder Inhaler [Advair] Advair Diskus 01/01/2021 12:00:00 AM EDT RESPIRATORY completed [facility] ([facility]) 12 HR CHLORPHENIRAMINE POLISTIREX 1.6 MG /ML / HYDROCODONE POLISTIREX 2 MG/ML Extended Release Suspension 10-8 mg/5 mL HYDROCODONE/CHLORPHEN P-STIREX 12/18/2020 12:00:00 AM EDT suspension,extended rel 12 hr 70 TAKE 1 TEASPOONFUL BY MOUTH TWICE A DAY NEEDED FOR COUGH MAXIMUM DAILY DOSE = 2 TEASPOONFUL TAKE 1 TEASPOONFUL BY MOUTH TWICE A DAY NEEDED FOR COUGH MAXIMUM DAILY DOSE = 2 TEASPOONFUL SOLD: 12/20/2020 [facility] 120 ACTUAT Fluticasone propionate 0.11 MG/ACTUAT Meter ed Dose Inhaler [Flovent] Flovent HFA 12/18/2020 12:00:00 AM EDT RESPIRATORY compl eted [facility] ([facility]) 12 HR CHLORPHENIRAMINE POLISTIREX 1.6 MG /ML / HYDROCODONE POLISTIREX 2 MG/ML Extended Release Suspension Hydrocodone Polistirex/Chlorpheniramine Polistirex 12/18/2020 12:00:00 AM EDT completed [facility] ([facility]) 110 mcg/actuation 12/18/2020 12:00:00 AM EDT HFA aerosol inh aler 12 INHALE TWO PUFFS BY MOUTH EVERY DAY FOR SHORTNESS OF BREATH RINSE AND GARGLE WITH SALT WATER OR MOUTH WASH AFTER EACH USE INHALE TWO PUFFS BY MOUTH EVERY DAY FOR SHORTNESS OF BREATH RINSE AND GARGLE WITH SALT WATER OR MOUTH WASH AFTER EACH USE SOLD: 12/20/2020 [facility] Bath/Shower Seat With Back/Adjustable 12/18/2020 12:00:00 AM EDT active [facility] ([facility]) Walker Wheels/Fixed With 8 Adjustment Holes/5" 12/18/2020 12:00:00 AM EDT active [facility] ([facility]) benzonatate 100 MG Oral Capsule BENZONATATE 12/17/2020 12:00:00 AM EDT capsule 90 TAKE ONE CAPSULE BY MOUTH EVERY 8 HOURS NEEDED FOR COUGH TAKE ONE CAPSULE BY MOUTH EVERY 8 HOURS NEEDED FOR COUGH SOLD: 12/20/2020 [facility] 20 mg 12/17/2020 12:00:00 AM EDT tablet 10 TAKE ONE TABLET BY MOUTH TWICE A DAY TAKE ONE TABLET BY MOUTH TWICE A DAY SOLD: 12/17/2020 [facility] 500 mg 12/13/2020 12:00:00 AM EDT tablet 14 TAKE ONE TABLET BY MOUTH EVERY 12 HOURS WITH FOOD FOR 7 DAYS TAKE ONE TABLET BY MOUTH EVERY 12 HOURS WITH FOOD FOR 7 DAYS SOLD: 12/13/2020 [facility] 60 ACTUAT Budesonide 0.08 MG/ACTUAT Dry Powder Inhaler [Pulmicort] Pulmicort Flexhaler 12/04/2020 12:00:00 AM EDT RESPIRATORY complet ed [facility] ([facility]) benzonatate 200 MG Oral Capsule Benzonatate 12/04/2020 12:00:00 AM EDT completed [facility] ([facility]) 10-8 mg/5 mL 12/03/2020 12:00:00 AM EDT suspension,extended rel 12 hr 60 TAKE 1 TEASPOON BY MOUTH EVERY 12 HOURS MAXIMUM DAILY DOSE = 2 TEASPOONS TAKE 1 TEASPOON BY MOUTH EVERY 12 HOURS MAXIMUM DAILY DOSE = 2 TEASPOONS SOLD: 12/03/2020 [facility] 24 HR metoprolol succinate 25 MG Extende d Release Oral Tablet metoprolol succinate (TOPROL-XL) 25 MG 24 hr tablet metoprolol succinate (TOPROL-XL) 25 MG 24 hr tablet 11/04/2020 12:00:00 AM EDT 25 mg Oral activ e Take 1 tablet (25 mg total) by mouth daily [facility] 1 mg 11/02/2020 12:00:00 AM EDT tablet 60 TAKE ONE TABLET BY MOUTH TWICE A DAY MAXIMUM DAILY DOSE = TWO TABLETS TAKE ONE TABLET BY MOUTH TWICE A DAY MAXIMUM DAILY DOSE = TWO TABLETS SOLD: 11/02/2020 [employer] Amoxicillin 875 MG / Clavulanate 125 MG Oral Tablet Amoxicillin-Pot Clavulanate 875-125 MG Amoxicillin-Pot Clavulanate 875-125 MG 10/23/2020 12:00:00 AM ED T 1.0 {tablet} active eCW1 ([facility]) Amoxicillin 875 MG / Clavulanate 125 MG Oral Tablet Amoxicillin-Pot Clavulanate 875-125 MG Amoxicillin-Pot Clavulanate 875-125 MG 10/23/2020 12:00:00 AM ED T 1.0 {tablet} active Amoxicillin-Pot Cla vulanate 875-125 MG eCW1 ([facility]) Prednisone 20 MG Oral Tablet PredniSONE 20 MG PredniSONE 20 MG 10/18/2020 12:00:00 AM EDT 1.0 {tablet} active Pr edniSONE 20 MG eCW1 ([facility]) Prednisone 20 MG Oral Tablet PredniSONE 20 MG PredniSONE 20 MG 10/18/2020 12:00:00 AM EDT 1.0 {tablet} active eCW1 ([facility]) Prednisone 20 MG Oral Tablet PredniSONE 20 MG PredniSONE 20 MG 10/18/2020 12:00:00 AM EDT 1.0 {tablet} active Pr edniSONE 20 MG eCW1 ([facility]) Prednisone 20 MG Oral Tablet PredniSONE 20 MG PredniSONE 20 MG 10/18/2020 12:00:00 AM EDT 1.0 {tablet} active Pr edniSONE 20 MG eCW1 ([facility]) 20 mg 10/18/2020 12:00:00 AM EDT tablet 5 TAKE ONE TABLET BY MOUTH EVERY DAY FOR 5 DAYS TAKE ONE TABLET BY MOUTH EVERY DAY FOR 5 DAYS SOLD: 10/21/2020 [facility] Prednisone 20 MG Oral Tablet PredniSONE 20 MG PredniSONE 20 MG 10/18/2020 12:00:00 AM EDT 1.0 {tablet} active Pr edniSONE 20 MG eCW1 ([facility]) Prednisone 20 MG Oral Tablet PredniSONE 20 MG PredniSONE 20 MG 10/18/2020 12:00:00 AM EDT 1.0 {tablet} active Pr edniSONE 20 MG eCW1 ([facility]) Prednisone 20 MG Oral Tablet PredniSONE 20 MG PredniSONE 20 MG 10/18/2020 12:00:00 AM EDT 1.0 {tablet} active Pr edniSONE 20 MG eCW1 ([facility]) Prednisone 20 MG Oral Tablet PredniSONE 20 MG PredniSONE 20 MG 10/18/2020 12:00:00 AM EDT 1.0 {tablet} active Pr edniSONE 20 MG eCW1 ([facility]) 200 ACTUAT Levalbuterol 0.045 MG/ACTUAT Metered Dose I nhaler [Xopenex] Xopenex HFA 10/07/2020 12:00:00 AM EST RESPIRATORY active MEDENT ([facility]) 45 mcg/actuation 10/07/2020 12:00:00 AM EST HFA aerosol inha ler 15 INHALE ONE TO TWO PUFFS BY MOUTH EVERY 4 TO 6 HOURS INHALE ONE TO TWO PUFFS BY MOUTH EVERY 4 TO 6 HOURS SOLD: 10/07/2020 [facility] atorvastatin 40 MG Oral Tablet atorvastatin (LIPITOR) 40 MG tablet atorvastatin (LIPITOR) 40 MG tablet 10/01/2020 12:00:00 AM EST 40 mg Oral active Take 1 tablet (40 mg total) by mouth daily [facility] Warfarin Sodium 2.5 MG Oral Tablet warfarin (COUMADIN) 2.5 MG tablet warfarin (COUMADIN) 2.5 MG tablet 10/01/2020 12:00:00 AM EST 2.5 mg Oral active Take 1 tablet (2.5 mg total) by mouth nightly [facility] 24 HR Divalproex Sodium 250 MG Extended Release Oral T ablet [Depakote] Depakote ER 10/01/2020 12:00:00 AM EST ORAL active MEDENT ([facility]) benzonatate 100 MG Oral Capsule [Tessalon Perles] Tessalon P erles 10/01/2020 12:00:00 AM EST ORAL completed MEDENT ([facility]) montelukast 10 MG Oral Tablet Montelukast Sodium 10/01/2020 12:00:00 AM EST ORAL active MEDENT ([facility]) rizatriptan 10 MG Oral Tablet [Maxalt] Maxalt 10/01/2020 12:00:00 AM EST ORAL active MEDENT ([facility]) Sumatriptan 100 MG Oral Tablet [Imitrex] Imitrex 09/18/2020 12:00: 00 AM EST ORAL active MEDENT ([facility]) Calcium Citrate-Vitamin D 500-500 MG-UNIT Oral Tablet Chewable Calcium Citrate- Vitamin D 500-500 MG-UNIT Oral Tablet Chewable 09/04/2020 12:00:00 AM EST 1 active Calcium Citrate-Vitamin D IZABEL (Brandon Duran MD [facility]) atorvastatin 40 MG Oral Tablet [Lipitor] Lipitor 40 MG Oral Tablet Lipitor 40 MG Oral Tablet 09/04/2020 12:00:00 AM EST 1 activ e atorvastatin 40 MG Oral Tablet [Lipitor] IZABEL (Brandon Duran MD [facility]) Warfarin Sodium 2.5 MG Oral Tablet [Coumadin] Coumadin 2.5 MG Oral Tablet Coumadin 2.5 MG Oral Tablet 09/04/2020 12:00:00 AM EST 1 active warfarin sodium 2.5 MG Oral Tablet [Coumadin] IZABEL (Brandon Duran MD [facility]) travoprost 0.04 MG/ML Ophthalmic Solutio n [Travatan] Travatan Z 0.004% Ophthalmic Solution Travatan Z 0.004% Ophthalmic Solution 09/04/2020 12:00 :00 AM EST 1 active travoprost 0.04 M G/ML Ophthalmic Solution [Travatan] IZABEL (Brandon Duran MD [facility]) Propylthiouracil 50 MG Oral Tablet Propylthiouracil 50 MG Or al Tablet 09/04/2020 12:00:00 AM EST 1 active propylt hiouracil 50 MG Oral Tablet IZABEL (Brandon Duran MD [facility]) Cholecalciferol 5000 UNT Oral Capsule Vitamin D3 Maximum Str ength 08/15/2020 12:00:00 AM EST ORAL active M EDENT ([facility]) Prolia [facility][NOTE 3]#[id number] (60mg Syringe)1MG 08/15/2020 12:00:00 AM EST completed MEDENT ([facility]) Medication administered onsite tramadol hydrochloride 50 MG Oral Tablet Tramadol HCL 08/01/2020 12:00:00 AM EST ORAL active MEDENT ([facility]) NITROFURANTOIN, MACROCRYSTALS 100 MG Oral Capsule Nitrofuran toin Macrocrystal 08/01/2020 12:00:00 AM EST ORAL completed MEDENT ([facility]) linaclotide 0.145 MG Oral Capsule [Linzess] Linzess 07/04 12:00:00 AM EST ORAL active MEDENT ( [facility]) 100 mg 08/01/2020 12:00:00 AM EST capsule 20 TAKE ONE CAPSULE BY MOUTH EVERY 12 HOURS FOR 10 DAYS TAKE ONE CAPSULE BY MOUTH EVERY 12 HOURS FOR 10 DAYS S OLD: 08/01/2020 [facility] 50 mg 08/01/2020 12:00:00 AM EST tablet 21 TAKE ONE TABLET BY MOUTH EVERY 8 HOURS NEEDED FOR PAIN MAXIMUM DAILY DOSE = THREE TABLETS TAKE ONE TABLET BY MOUTH EVERY 8 HOURS NEEDED FOR PAIN MAXIMUM DAILY DOSE = THREE TABLETS SOLD: 08/01/2020 [facility] 24 HR metoprolol succinate 25 MG Extende d Release Oral Tablet metoprolol succinate (TOPROL-XL) 25 MG 24 hr tablet metoprolol succinate (TOPROL-XL) 25 MG 24 hr tablet 07/17/2020 12:00:00 AM EST 25 mg Oral abort ed Take 1 tablet (25 mg total) by mouth daily [facility] Warfarin Sodium 2.5 MG Oral Tablet warfarin (COUMADIN) 2.5 MG tablet warfarin (COUMADIN) 2.5 MG tablet 07/17/2020 12:00:00 AM EST 2.5 mg Oral active Take 1 tablet (2.5 mg total) by mouth nightly [facility] 24 HR metoprolol succinate 25 MG Extende d Release Oral Tablet metoprolol succinate (TOPROL-XL) 25 MG 24 hr tablet metoprolol succinate (TOPROL-XL) 25 MG 24 hr tablet 07/17/2020 12:00:00 AM EST 25 mg Oral activ e Take 1 tablet (25 mg total) by mouth daily [facility] atorvastatin 40 MG Oral Tablet atorvastatin (LIPITOR) 40 MG tablet atorvastatin (LIPITOR) 40 MG tablet 07/17/2020 12:00:00 AM EST 40 mg Oral active Take 1 tablet (40 mg total) by mouth daily [facility] 10,000 unit/mL 06/11/2020 12:00:00 AM EST solution 2 INJECT 2 MLS INTO THE BLADDER VIA CATHETER ONCE WEEKLY INJECT 2 MLS INTO THE BLADDER VIA CATHET ER ONCE WEEKLY SOLD: 06/16/2020 [facility] 1 ML heparin sodium, porcine 49392 UNT/ML Injection Heparin Sodium (Porcine) 05/29/2020 12:00:00 AM EDT active MEDENT ([facility]) Amitriptyline Hydrochloride 25 MG Oral Tablet Amitriptyline HCL 05/15/2020 12:00:00 AM EDT ORAL active M EDENT ([facility] [facility]) Prednisone 20 MG Oral Tablet Prednisone 05/03/2020 12:00:00 AM EDT active MEDENT ([facility]) Amoxicillin 875 MG Oral Tablet Amoxicillin 05/03/2020 12:00:00 AM EDT active MEDENT ([facility]) 25 mg 05/02/2020 12:00:00 AM EDT tablet extended release 24 hr 90 TAKE ONE TABLET BY MOUTH EVERY DAY TAKE ONE TABLET BY MOUTH EVERY DAY SOLD: 05/03/2020 [facility] Prednisone 20 MG Oral Tablet Prednisone 05/01/2020 12:00:00 AM EDT ORAL completed MEDENT ([facility]) 24 HR metoprolol succinate 25 MG Extende d Release Oral Tablet metoprolol succinate (TOPROL-XL) 25 MG 24 hr tablet metoprolol succinate (TOPROL-XL) 25 MG 24 hr tablet 05/01/2020 12:00:00 AM EDT 25 mg Oral abort ed Take 1 tablet (25 mg total) by mouth daily [facility] cetirizine hydrochloride 10 MG Oral Tablet Cetirizine HCL 04/24/2020 12:00:00 AM EDT ORAL active MEDENT ([facility]) Fluconazole 150 MG Oral Tablet [Diflucan] Diflucan 03/20/2020 1 2:00:00 AM EDT completed MEDENT ([facility]) NITROFURANTOIN, MACROCRYSTALS 25 MG / Ni trofurantoin, Monohydrate 75 MG Oral Capsule [Macrobid] Macrobid 03/20/2020 12:00:00 AM EDT ORAL completed MEDENT ([facility]) Sucralfate 100 MG/ML Oral Suspension [Carafate] Carafate 02/20/2020 12:00:00 AM EDT ORAL completed MEDENT ([facility]) Sucralfate 1000 MG Oral Tablet sucralfate (CARAFATE) 1 g tablet sucralfate (CARAFATE) 1 g tablet 02/16/2020 12:00:00 AM EDT a borted [facility] Trazodone Hydrochloride 50 MG Oral Tablet traZODone (D ESYREL) 50 MG tablet traZODone (DESYREL) 50 MG tablet 10/04/2019 12:00:00 AM EST aborted as needed [facility] Simethicone 80 MG Chewable Tablet simethicone (MYLICON ) 80 MG chewable tablet simethicone (MYLICON) 80 MG chewable tablet 08/14/2019 12:00:00 AM EST aborted as needed [facility] LINZESS [address] [facility] [id number] 08/11/2019 12:00:00 AM EST aborted as needed [facility] Estrogens, Conjugated (RETIREMENT) 0.625 MG/ML Vaginal Cream [Premarin] PREMARIN vaginal cream PREMARIN vaginal cream 04/22/2018 12:00:00 AM EDT aborted [facility] 1 ML denosumab 60 MG/ML Prefilled Syringe denosumab (P ROLIA) 60 MG/ML SOSY denosumab (PROLIA) 60 MG/ML SOSY 60 mg Subcutaneous aborted Inject 60 mg under the skin once [facility] Warfarin Sodium 2.5 MG Oral Tablet warfarin (COUMADIN) 2.5 MG tablet warfarin (COUMADIN) 2.5 MG tablet 2.5 mg Oral aborted Take 2.5 mg by mouth nightly [facility] Insurance Providers Payer name Policy type / Coverage type Policy ID Covered democrat ID Covered democrat's relationship to sharma Policy Sharma Plan Information [place] [employer] [facility] [id number] 1 [id number] [employer]-Sh[employer] [facility]/ [id number] 1 [id number] MEDICARE [id number] SP [id number] B MEDICARE [id number] SP [id number] D MEDICARE [id number] SP [id number] MEDICARE [id number] xxxxxxxxxxx [id number] Medicare Natl Gov't Servi Medicare Primary [id number] Self Medicare P [id number] S [id number] A MEDICARE [id number] Tova [id number] [place] Primary [id number] Self 0 [id number] Medicare Part B [facility] [id number] 0 [id number] Medicare Natl Gov't Servi Medicare Primary [id number] Self 1 [id number] MEDICARE [id number] Tova [id number] A [place] Medicare Primary [id number] Self 0 [id number] MEDICARE [id number] Tova [id number] D MEDICARE [id number] SP [id number] A Medicare Part B [facility] [id number] 0 [id number] MEDICARE [id number] SP [id number] FOR LIFE [id number] [id number] FOR LIFE [id number] HU2 118 [id number] FOR LIFE [id number] HU2 118 [id number] Tova [id number] xxxxxxxxx [id number] [place] Medicare Primary [id number] Self [id number] Medicare [place] Medicare Primary [id number] 2.16.840.1.937563.3.227.99.806.619.0 Self [id number] [place] Medicare Primary [id number] 2.16.840.1.054214.3.227.99.806.619.0 Self [id number] [place] Medicare Primary [id number] Self [id number] Medicare [place] Medicare Primary [id number] 2.16.840.1.547444.3.227.99.806.619.0 Self [id number] Medicare [place] Medicare Primary [id number] 2.16.840.1.805060.3.227.99.806.619.0 Self [id number] Medicare [place] Medicare Primary [id number] 2.16.840.1.287019.3.227.99.806.619.0 Self [id number] [place] Medicare Primary [id number] Self [id number] [place] Medicare Medicare Part B [id number] Self [id number] [employer] [id number] Self [id number] D [facility] P [id number] S [id number] INSURANCE COVID-19 [id number] 2 [id number] INSURANCE COVID-19 COVID Tova C OVID ANSI-Commercial [id number] ANSI-Medicare Part B [id number] ANSI-Medicare Part B [id number] MEDICARE [id number] SP [id number] A [place] < 08/02/17 Medigap Part B [id number] 2.0.1.931583.3.227.99.1629.4518.0 Family Dependent 1 [id number] For Life Medigap Part B [id number] 2.0.1.912812.3.227.99.1629.4518.0 Family Dependent 1 [id number] MEDICARE C [id number] S [id number] A WPS FOR LIFE [id number] 1 [id number] [facility] Medigap Part B [id number] 2.0.1.777883.3.227.99.991.732984.0 Family Dependent [id number] [facility] (TFL) Medigap Part B [id number] 2.0.1.994148.3.227.99.991.876163.0 Self [id number] Medicare [place] Medicare Primary [id number] 2.0.1.955381.3.227.99.991.229806.0 Self [id number] [place] < 08/02/17 Medigap Part B [id number] 2.0.1.242078.3.227.99.1629.4518.0 Family Dependent 1 [id number] For Life Medigap Part B [id number] 2..1.263284.3.227.99.1629.4518.0 Family Dependent 1 [id number] Medicare [place] Medicare Primary [id number] 2.0.1.682800.3.227.99.806.619.0 Self [id number] For Life Medigap Part B [id number] 2.0.1.123446.3.227.99.806.619.0 Family Dependent [id number] Medicare [place] Medicare Primary [id number] 2.16.840.1.010980.3.227.99.806.619.0 Self [id number] For Life Medigap Part B [id number] 2.16.840.1.616402.3.227.99.806.619.0 Family Dependent [id number] Medicare [place] Medicare Primary [id number] 2.16.840.1.309831.3.227.99.806.619.0 Self [id number] For Life Medigap Part B [id number] 2.16.840.1.922451.3.227.99.806.619.0 Family Dependent [id number] Medicare [place] Medicare Primary [id number] 2.16.840.1.461865.3.227.99.806.619.0 Self [id number] [id number] For Life Medigap Part B [id number] 2.16.840.1.451753.3.227.99.806.619.0 Family Dependent [id number] Medicare [place] Medicare Primary [id number] 2.16.840.1.001324.3.227.99.806.619.0 Self [id number] For Life Medigap Part B [id number] 2.16.840.1.213272.3.227.99.806.619.0 Family Dependent [id number] FOR LIFE WPS [id number] Commercial Insuranc e [id number] For Life WPS Medigap Part B [id number] 2.16840.1.711365.3.227.99.1767.1321.0 Family Dependent 1 [id number] MEDICARE [id number] B [facility] Part B [id number] 2.16840.1.193914.3.227.99.991.992605.0 Family Dependent [id number] [place] [facility] ([place]) [facility] Part B [id number] 2.16840.1.698363.3.227.99.991.383827.0 Self [id number] Medicare [place] Medicare Primary [id number] 2.160.1.326881.3.227.99.991.824284.0 Self [id number] [facility] Part B [id number] 2.16840.1.993051.3.227.99.991.030658.0 Family Dependent [id number] [facility] Part B [id number] 2.0.1.380482.3.227.99.991.780657.0 Self [id number] Medicare [place] Medicare Primary [id number] 2.840.1.747888.3.227.99.991.815475.0 Self [id number] [facility] [id number] 2.840.1.980336.3.227.99.806.619.0 Family Dependent [id number] Medicare [place] Medicare Primary [id number] 2.16840.1.024207.3.227.99.806.619.0 Self [id number] MEDICARE C [id number] B [facility] [id number] 2.840.1.883278.3.227.99.806.619.0 Family Dependent [id number] Medicare [place] Medicare Primary [id number] 2.16.840.1.929887.3.227.99.806.619.0 Self [id number] [facility] Part B [id number] 2.16.840.1.940954.3.227.99.991.984684.0 Family Dependent [id number] [facility] (TFL) [facility] Part B [id number] 2.16.840.1.014703.3.227.99.991.645580.0 Self [id number] Medicare [place] Medicare Primary [id number] 2.16.840.1.684088.3.227.99.991.164850.0 Self [id number] For Life [facility] Part B [id number] 2.16.840.1.259596.3.227.99.806.619.0 Family Dependent [id number] Medicare [place] Medicare Primary [id number] 2.16.840.1.157268.3.227.99.806.619.0 Self 067 [id number] For Life [facility] Part B [id number] 2.16.840.1.061211.3.227.99.806.619.0 Family Dependent [id number] Medicare [place] Medicare Primary [id number] 2.16.840.1.022343.3.227.99.806.619.0 Self [id number] [facility] C [id number] S [id number] [employer] [id number] Medic are [id number] FOR LIFE WPS [id number] Commercial Insuranc e [id number] [facility] Part B [id number] 2.0.1.592080.3.227.99.991.376734.0 Family Dependent [id number] [place] [employer] [facility]) [facility] Part B [id number] 2.0.1.025711.3.227.99.991.166129.0 Self [id number] Medicare [place] Medicare Primary [id number] 2.0.1.850852.3.227.99.991.745062.0 Self [id number] [facility] [id number] Medicar e [id number] MEDICARE C [id number] S [id number] D [employer] [facility] Part B [id number] 2.0.1.540352.3.227.99.1037.3581.0 Family Dependent 1 [id number] For Life [facility] Part B [id number] 2.0.1.1138 83.3.227.99.1037.3581.0 Family Dependent [id number] Medicare Part B Medicare Primary [id number] 2.0.1.056864.3.227.99.1037.3581.0 Self 1 [id number] [facility] Part B [id number] 2.0.1.128819.3.227.99.991.421998.0 Family Dependent [id number] [place] [employer] ([facility]) [facility] Part B [id number] 2.0.1.075846.3.227.99.991.818774.0 Self [id number] Medicare [place] Medicare Primary [id number] 2.0.1.121520.3.227.99.991.446508.0 Self [id number] Medicare Part B Medicare Primary 2.0.1.347403.3.227.9 9.1037.3581.0 Self [employer] [facility] Part B Dep Of Cheryl [id number] Family Dependent Dep Of Cheryl For Life [facility] Part B [id number] Family Dependent FOR LIFE WPS 2.16.840.1.475775.3.929 Comme rcial Insurance [employer] 16.840.1.447774 .3.929 Medicare Medicare Part B Medicare Primary [id number] Self BS [place] Medigap Part B [id number] Family Dependent [place] [facility] [employer] (TFL) Medigap Part B [id number] Self Medicare [place] Medicare Primary [id number] Self [employer] Commercial [id number] Family Depende nt Medicare Medicare Primary [id number] Self SELF PAY UNAVAILABLE SP UNAVAILA BLE For Life WPS Medigap Part B [id number] Family Depende nt MEDICARE PART A-O/P [id number] 18 [id number] MEDICARE -O/P [id number] 18 [id number] FOR LIFE UNAVAILABLE U NAVAILABLE FOR LIFE S [id number] P [id number] MEDICARE [id number] SP [id number] FOR LIFE [id number] HU2 [id number] For Life Secondary ONLY [id number] 1 [id number] Medicare Part B [facility] Other 0 [id number] Self 0 SELF PAY ONLY [id number] SP [id number] D [employer] [facility] [place] P [id number] S [id number] MEDICARE [id number] S [id number] [facility] S [id number] S [id number] FOR LIFE O [id number] P [id number] FOR LIFE WPS [id number] Commercial Insuranc e [id number] [employer] [id number] Medic are [id number] MEDICARE PART A-O/P [id number] 18 [id number] FOR LIFE-O/P [id number] 01 [id number] MEDICARE PART A-O/P [id number] 18 [id number] Medicare [place] Medicare Primary [id number] Self [id number] For Life Medigap Part B [id number] Family Dependent [id number] Medicare [place] Medicare Primary [id number] Self [id number] For Life Medigap Part B [id number] Family Dependent [id number] ANSI-Medicare Part B [id number] ANSI-Medicare Part B [id number] ANSI-Commercial [id number] [facility] [id number] [facility] [id number] [facility] Medigap Part B [id number] Family Dependent [id number] [place] [facility] Medigap Part B [id number] Self [id number] Medicare [place] Medicare Primary [id number] Self [id number] ANSI-Medicare Part B [id number] ANSI-Medicare Part B [id number] ANSI-Commercial [id number] ANSI-Medicare Part B [id number] ANSI-Commercial [id number] ANSI-Medicare Part B [id number] Medicare [place] Medicare Primary [id number] [place] [id number] For Life [facility] Part B [id number] Family Dependent [id number] ANSI-Commercial [id number] ANSI-Medicare Part B [id number] ANSI-Medicare Part B [id number] Problems, Conditions, and Diagnoses Code Display Name Description Problem Type Effective Dates Data Source(s) I82.401 Acute embolism and thrombosi s of unspecified deep veins of right lower extremity Acute embolism and thrombosis of unspeci Diagnosis 05/22/2021 08:37:19 AM EDT [facility] D68.59 Other primary thrombophilia Other primary thrombophili a Diagnosis 05/01/2021 08:38:12 AM EDT [facility] K92.1 Melena Melena Diagnosis 04/24/2021 11:27:00 AM ED T [facility] R07.9 Chest pain, unspecified Chest pain, unspecified Diagno sis 01/16/2021 09:58:35 AM EDT [facility] E78.00 Pure hypercholesterolemia, unspecified P ure hypercholesterolemia, unspecified Diagnosis 01/16/2021 09:58:35 AM EDT [facility] I10 Essential (primary) hypertension Essential (primary) h ypertension Diagnosis 01/16/2021 09:58:35 AM EDT [facility] [facility] K58.1 Irritable bowel syndrome characterized b y constipation Irritable bowel syndrome characterized by constipation Problem 05/07/2021 12:00:00 A M EDT MEDENT ([facility]) G43.009 Migraine without aura, not refractory Mi graine without aura, not refractory Problem 04/09/2021 12:00:00 AM EDT MEDENT ([facility]) R05 Cough Cough [id number] 01/16/2021 12:00:00 AM ED T [facility] 379.21 Vitreous Disorders Degeneration Vitreous Disorders Deg eneration Problem 09/04/2020 12:00:00 AM EST IZABEL (Brandon Duran MD [facility]) [id number] Dry Eye Syndrome Both Eyes Dry Eye Syndrome Both Eyes Problem 09/04/2020 12:00:00 AM EST IZABEL (Brandon Duran MD [facility]) 366.16 Cataract Senile Nuclear Cataract Senile Nuclear Proble m 09/04/2020 12:00:00 AM EST IZABEL (Brandon Duran MD [facility]) H40.1131 Glaucoma Open-angle Primary Glaucoma Open-angle Primar y Problem 09/04/2020 12:00:00 AM EST IZABEL (Brandon Duran MD [facility]) K21.00 Gastro-esophageal reflux disease with ul ceration Gastro-esophageal reflux disease with ulceration Problem 08/01/2020 12:00:00 AM EST MEDENT ( [facility]) Surgeries/Procedures Procedure Description Date Indications Data Source(s) OFFICE OUTPATIENT VISIT 15 MINUTES 05/20/2021 12:00:00 AM EDT MEDENT ([facility]) OFFICE OUTPATIENT VISIT 25 MINUTES 05/07/2021 12:00:00 AM EDT MEDENT ([facility]) OFFICE OUTPATIENT VISIT 25 MINUTES 04/09/2021 12:00:00 AM EDT MEDENT ([facility]) OFFICE OUTPATIENT VISIT 15 MINUTES 02/28/2021 12:00:00 AM EDT MEDENT ([facility]) OFFICE OUTPATIENT VISIT 25 MINUTES 02/17/2021 12:00:00 AM EDT MEDENT ([facility]) THERAPEUTIC PROPHYLACTIC/DX INJECTION SUBQ/IM 02/18/20 21 12:00:00 AM EDT MEDENT ([facility]) OFFICE OUTPATIENT VISIT 10 MINUTES 02/17/2021 12:00:00 AM EDT MEDENT ([facility]) Spirometry 02/13/2021 12:00:00 AM EDT M EDENT ([facility], ) Plethysmography Determination Lung Volumes & Per Airway Resi st 02/13/2021 12:00:00 AM EDT MEDENT ([facility], ) DIFFUSING CAPACITY 02/13/2021 12:00:00 AM EDT MEDENT ([facility], ) OFFICE OUTPATIENT VISIT 15 MINUTES 02/13/2021 12:00:00 AM EDT MEDENT ([facility], ) OFFICE OUTPATIENT VISIT 15 MINUTES 02/11/2021 12:00:00 AM EDT MED[facility] ([facility], ) POCT AMB EKG <td>POCT AMB EKG</td><td>Rou david</td><td>01/16/2021 11:31 AM EDT</td><td> Chest pain, unspecified type</td><td> </td> 01/16/2021 11:31:00 AM EDT Chest pain, unspecified type [facility] Chest pain, unspecified type OFFICE OUTPATIENT VISIT 15 MINUTES 01/01/2021 12:00:00 AM EDT ALESSIO ([facility]) Intermediate Eye Exam Established Patient (25) Interme diate Eye Exam Established Patient (25) 12/19/2020 12:00:00 AM EDT IZABEL (Paulino Duran MD [facility]) OPHTHALMIC US DX CORNEAL PACHYMETRY UNI/BI Corneal Pachymetr y ([place]) 12/19/2020 12:00:00 AM EDT IZABEL (Brandon Duran MD [facility]) COMPUTERIZED OPHTHALMIC IMAGING OPTIC NERVE Scodi, opt ic nerve with interpretation and report ([place]) 12/19/2020 12:00:00 AM EDT GR EENWAY (Brandon Duran MD [facility]) OFFICE OUTPATIENT VISIT 25 MINUTES 12/18/2020 12:00:00 AM EDT ALESSIO ([facility]) Needle electromyography, each extremity, with related paraspinal areas, when performed, done with nerve conduction, amplitude and latency/velocity study; complete, five or more muscles studied, innervated by three or more nerves or four or more spinal levels (list separately in addition to the code for primary procedure). 12/05/2020 12:00:00 AM EDT MEDKRIS T ([facility], ) Needle electromyography, each extremity, with related paraspinal areas, when performed, done with nerve conduction, amplitude and latency/velocity study; complete, five or more muscles studied, innervated by three or more nerves or four or more spinal levels (list separately in addition to the code for primary procedure). 12/05/2020 12:00:00 AM EDT MEDEN T ([facility], ) 81705 Nerve conduction studies 13 or more studies NEW 201212/05/2020 12:00:00 AM EDT MEDANTHONY ([facility], ) OFFICE OUTPATIENT VISIT 25 MINUTES 12/04/2020 12:00:00 AM EDT MEDENT ([facility]) Needle electromyography, each extremity, with related paraspinal areas, when performed, done with nerve conduction, amplitude and latency/velocity study; complete, five or more muscles studied, innervated by three or more nerves or four or more spinal levels (list separately in addition to the code for primary procedure). 11/20/2020 12:00:00 AM EDT MEDEN T ([facility], ) Needle electromyography, each extremity, with related paraspinal areas, when performed, done with nerve conduction, amplitude and latency/velocity study; complete, five or more muscles studied, innervated by three or more nerves or four or more spinal levels (list separately in addition to the code for primary procedure). 11/20/2020 12:00:00 AM EDT MEDEN T ([facility], ) 96356 Nerve conduction studies 13 or more studies NEW 201211/20/2020 12:00:00 AM EDT MED[facility] ([facility], ) MRI SPINAL CANAL CERVICAL W/O CONTRAST MATRL 1 12:00:00 AM EDT MEDENT ([facility], ) MRI SPINAL CANAL CERVICAL W/O CONTRAST MATRL 1 12:00:00 AM EDT MEDENT ([facility], ) MRI SPINAL CANAL LUMBAR W/O CONTRAST MATERIAL 10/27/19 21 12:00:00 AM EDT MED[facility] ([facility], ) MRI SPINAL CANAL LUMBAR W/O CONTRAST MATERIAL 10/27/19 21 12:00:00 AM EDT MEDENT ([facility], ) OFFICE OUTPATIENT VISIT 25 MINUTES 10/01/2020 12:00:00 AM EST MEDENT ([facility]) Surgical / procedural history 1969, hystere ctomy 1975, Hernia 1975 Surgical / procedural history 1969, hysterectomy 1975, Hernia 197509/04/2020 12:00:00 AM EST IZABEL (Brandon dean MD [facility]) Medical Eye Exam Medical Eye Exam 09/04/2020 12:00:00 AM EST IZABEL (Brandon Duran MD [facility]) OFFICE OUTPATIENT VISIT 15 MINUTES 09/02/2020 12:00:00 AM EST MEDENT ([facility]) THERAPEUTIC PROPHYLACTIC/DX INJECTION SUBQ/IM 08/15/19 12:00:00 AM EST [facility] ([facility]) Irrigation Of Bladder 06/19/2020 12:00:00 AM EST [facility]ENT ([facility]) Irrigation Of Bladder 06/11/2020 12:00:00 AM EST [facility] ([facility]) Irrigation Of Bladder 06/04/2020 12:00:00 AM EST [facility] ([facility] [facility]) Irrigation Of Bladder 05/29/2020 12:00:00 AM EDT [facility] ([facility]) Results ID Date Data Source [id number] 05/20/2021 03:50:00 PM EDT MEDENT ([facility]) Name Value Range Interpretation Code Description Data Yolette rce(s) Supporting Document(s) Respiratory Panel Laboratory test result MEDENT ([facility]) This respiratory PCR panel detects Influ gabriel A H1, H3 and 2009 H1 viruses, Influenza B virus, Resp iratory Syncytial Virus, Human metapneumovirus, Parainfluenza virus 1, 2, 3 and 4, Adenovirus, Rhinovirus/Enterovirus, Coronavirus HKU1, NL63, OC43, 229E and SARS-CoV-2 (COVID 19), Bordetella pertussis, Bordetella parapertussis, Mycoplasma pneumoniae and Chlamydia pneumoniae. NEGATIVE by MULTIPLEXED NUCLEIC ACID PCR SARS-CoV-2 (COVID 19) NEGATIVE - SARS-CoV-2 (COVID19) ID Date Data Source [id number] 05/20/2021 03:50:00 PM EDT [facility] Name Value Range Interpretation Code Description Data Yolette rce(s) Supporting Document(s) SARS-CoV-2 (COVID 19) NEGATIVE - SARS-CoV-2 (COVID19) [facility] This lab was ordered by [facility] a nd reported by [facility]. ID Date Data Source [id number] 04/11/2021 12:39:00 AM EDT [facility] FASTING: UNKNOWNReceived: 04/04/2021 at 03:32:00 QPT: [facility], [address], [address] [place], [address], Jose Daniel Agrawal MD Received: 04/04/2021 at 03:32:00 QPT : [facility], [address], [address] [facility], [place], [address], Jose Daniel Agrawal MD Received: 04/04/2021 at 03:32:00 AMD : [facility], [address], [place], [address], Feng Suarez M.D.,PhD Name Value Range Interpretation Code Description Data Yolette rce(s) Supporting Document(s) Glucose [Mass/volume] in Serum or Plasma 95 mg/dL 65-99 Normal (applies to non- numeric results) [facility] Fasting reference interval Urea nitrogen [Mass/volume] in Serum or Plasma 13 mg/dL 7 -25 Normal (applies to non-numeric results) [facility] Creatinine [Mass/volume] in Serum or Plasma 0.91 mg/dL 0.60 -0.93 Normal (applies to non-numeric results) [facility] For patients >49 years of age, the refer ence limitfor Creatinine is approximately 13% higher for peopleidentified as -Slovenian. eGFR NON-AFR. GREEK 62 mL/min/1.73m2 > OR = 60 Normal ( applies to non-numeric results) [facility] eGFR 72 mL/min/1.73m2 > OR = 60 Normal (a pplies to non-numeric results) [facility] Urea nitrogen/Creatinine [Mass Ratio] in Serum or Plasma NOT APPLICABLE (calc) 6-22 [facility] Sodium [Moles/volume] in Serum or Plasma 139 mmol/L 135-146 Normal (applies to non-numeric results) [facility] Potassium [Moles/volume] in Serum or Plasma 4.3 mmol/L 3.5- 5.3 Normal (applies to non-numeric results) [facility] Chloride [Moles/volume] in Serum or Plasma 103 mmol/L 98-11 0 Normal (applies to non-numeric results) [facility] Carbon dioxide, total [Moles/volume] in Serum or Plasma 24 mmol/ L 20-32 Normal (applies to non-numeric results) [facility] Calcium [Mass/volume] in Serum or Plasma 9.5 mg/dL 8.6-10. 4 Normal (applies to non-numeric results) [facility] ID Date Data Source [id number] 04/11/2021 12:39:00 AM EDT [facility] FASTING: UNKNOWNReceived: 04/04/2021 at 03:32:00 QPT: [facility], [address], [address] [place], [address], Jose Daniel Agrawal MD Received: 04/04/2021 at 03:32:00 QPT : [facility], [address], [address] [place], [address], Jose Daniel Agrawal MD Received: 04/04/2021 at 03:32:00 AMD : [facility], [address], [place], [address], Feng Suarez M.D.,PhD Name Value Range Interpretation Code Description Data Yolette rce(s) Supporting Document(s) Leukocytes [#/volume] in Blood by Automated count 5.6 Thousand/u L 3.8-10.8 Normal (applies to non-numeric results) [facility] Erythrocytes [#/volume] in Blood by Automated count 4.29 Million /uL 3.80-5.10 Normal (applies to non-numeric results) [facility] Hemoglobin [Mass/volume] in Blood 12.4 g/dL 11.7-15.5 Normal (applies to non- numeric results) [facility] Hematocrit [Volume Fraction] of Blood by Automated count 37.5 % 35.0-45.0 Normal (applies to non-numeric results) [facility] Erythrocyte mean corpuscular volume [Entitic volume] by Auto mated count 87.4 fL 80.0-100.0 Normal (applies to non-numeric results) [facility] Erythrocyte mean corpuscular hemoglobin [Entitic mass] by Automated count 28.9 pg 27.0-33.0 Normal (applies to non-numeric results) [facility] Erythrocyte mean corpuscular hemoglobin concentration [Mass/volume] by Automated count 33.1 g/dL 32.0-36.0 Normal (applies to non-numeric results) [facility] Erythrocyte distribution width [Ratio] by Automated count 14.1 % 11.0-15.0 Normal (applies to non-numeric results) [facility] Platelets [#/volume] in Blood by Automated count 278 Thousand/uL 140-400 Normal (applies to non-numeric results) [facility] Platelet mean volume [Entitic volume] in Blood by Paddy-Giovanny 11. 5 fL 7.5-12.5 Normal (applies to non-numeric results) [facility] ID Date Data Source [id number] 04/11/2021 12:39:00 AM EDT [facility] FASTING: UNKNOWNReceived: 04/04/2021 at 03:32:00 QPT: [facility], [address], [address] [place], [address], Jose Daniel Agrawal MD Received: 04/04/2021 at 03:32:00 QPT : [facility], [address], [address] [place], [address], Jose Daniel Agrawal MD Received: 04/04/2021 at 03:32:00 AMD : [facility], [address], [place], [address], Feng Suarez M.D.,PhD Name Value Range Interpretation Code Description Data Yolette rce(s) Supporting Document(s) Natriuretic peptide.B prohormone N-Terminal [Mass/volu me] in Serum or Plasma 149 pg/mL [facility] For Heart Failure (HF) diagnosis, refere nce ranges inpatients with dyspnea are based on Estefania MAR, Et al.Am [facility]aclio Cardiol. 2018;71:0308-8083.18-49 years:<= 300 pg/mL Normal, HF unlikely>= 450 pg/mL High probability of HF50-75 years:<= 300 pg/mL Normal, HF unlikely>= 900 pg/mL High probability of HF>75 years:<= 300 pg/mL Normal, HF unlikely>= 1800 pg/mL High probability of HFFor patients with coronary heart disease, the optimalrisk category cut points for incident HF or CVD (<253 pg/mL men, <372 pg/mL women) are based onHeriberto T, et al. J Am [place] Cardiol. 2007:50:205-14.For patients with existing HF, the optimal riskcategory cut point for HF progression (<300 pg/mL) isbased on Jeana BRIGGS et al. Clin Biochem. 2010;43:1405-10.For additional information, please refer [email or web address](This link is being provided for informational/educational purposes only.) ID Date Data Source [id number] 03/04/2021 11:15:00 [facility] KUBCLINICAL HISTORY: Constipation. Bloating. Vomiting.COMPARISON: None available.TECHNIQUE: 2 view(s) of the abdomen.FINDINGS: No radiopaque renal/ureteral calculi are seen. Moderate stool in the colon. Nonobstructive bowel gas pattern. Visualized lung bases are clear. Visualized osseous structures are unremarkable.IMPRESSION: No acute findings. Moderate stool in the colon. No bowel obstruction.Dictated by: KELBY MARKS M.D. on 03/04/2021lectronically Signed by: KELBY MARKS M.D. on 03/04/2021 11:30 AMTranscribed by: shavon on 03/04/2021 11:30 AMCDS G code: ,CDS Modifier: ,cc: Name Value Range Interpretation Code Description Data Yolette rce(s) Supporting Document(s) ID Date Data Source [id number] 03/04/2021 09:45:00 AM EDT [facility] Name Value Range Interpretation Code Description Data Yolette rce(s) Supporting Document(s) Follow Up [facility] YZHAZq8xVkKRUqIoDKJlYcaGTYfoQYitQZCqW9E5WPgoHm5MXUbturCaLDTqSz1+LDTaZP3zxo6gZGTg gMy [file] S13WCdDrI/IeDiKPq5hbl6nj/m081vCi4KRAZSKa68WRBT/J0+Julio César/QN04O6QlV9bSwPeHPLShxX48L5 [file] xutyqk9NxCI+94DjHmg8ZHxhsozL7G1/Tzk0h3+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 [file] [place]/9fW2aYhBfOVXX3YDVhioc1ata5BusaFt4zTfhykKmgwHNJpP4CTbxRFG+X3B/Agoa4uGO75At4n2 [file] 6xiuniYd40BMEVRCs6K4qfdROBpIOFSBbH2/9fJh8QRBWAThqY/OJHelW/manager of sales/s4S8w0u/2UcTeTYUZd [file] E5rza/erybongyQ+NKKofbdAMUouYbM1hJmrzi3/MEAT MARKET MANAGER [file] rsrrbV1HblTHhJzGuOB1wIbruflAhnnlh2+RiqsW7EnjATzz8+research and development chemist/RT8XeU/HqcdZBfCTd6VuXLZANv KVSqWxn3mg+nCMDRbZXPNZ1i51UVY0GRmd7KBieuc3 xXeSfcVX1Ae587K8enTKqsB7oZ1zZFSy7APR1VEJuHUBoXBlx0FF/pXk99t2sZV/4J+CK0/JypKkByct gnj+oGb94mQkCrRTD9a01useut0K84FStXs8paqEnp3WEysyGX+b2LYfld4Lx+zkY7rIAwM4tZT6me83 0hMPMYSD+rngqDubeG3IEwGxo8BM7ujSHR5Bf8YC8Q 9ML4kbrltyHKe2rgi0zpkt5GqnexqHYmtR7x5EFgGr/fHo8lhhQbYySpTl7AE01NiiEPBi1JKxmHjiNg 5C32pvdHIqCKr1dAETJeF8Ec0eAczzwS0N0Zp+2kD5bkNbrLmzYat4bFgsaTxa34ZPr5Kztdg6LaBIbn nHL0PCsrz1cU693iFZ4CQHn+ybMc5kYTHHzaGWmxqp anO8eu2r0Rof9AZpHG0jiuHpnE/mR/oPJ+LsIGZd6ziPaxxrjHA3Sl9OH6UX004xn27Me5oAzjOm9d6U ulcUxe1VppP+Nsm4fGJ9yHCDgPx/dNGY3V9xtThiVn1o5UFa9bp4y2tjf1RZ0IDtAYxkjdBhie0f6CXm 0RmJ7WSveeT4kyhuCcNIPBY27VIa0yrBfqJnPSPrLp qjWcfVSeg1IHIn619rusuAjTWKt/UEmrD35cCvd1Z4N+fEubirgB87j2JhHzSiei6AiTzyxQlWk5UipR mno1CuEdNUCLSn1RVtOfSxQUtmfzn2m07rrsQv3DI+UK8+8z6TPC+X6CKe6IUf0TcXxxL16/puLBLHb1 /0PCqhfF2qDPHyuppx+Dqa7qcQL9ipmcEk8UgKluj4 9UDCVBz9m3uCKuggBlq574nDkE9zYC7rTDNEJk1W6iDsLc992/ZX5onkTrP/Leela/yKs2FKxuHoipfWyTa hOwuNsszYWXGJ8H/TbD68sLZa6AZofqzuyhvvSSnNAeZhucDVeB/F2W+kzJCrUsrfMqMuOBxUi+rF6hc iO0IFffpJBn+QeYBF/jAfd+LusXH4NVflSA5nRzS/F w9ZldWqW174qcJ28b96jG/BBQMPTWhyQ53rzVK78SZmP4ZvvWlnZxs9500vWBHs+blJULv3plRF7nfTg 4nU8+jzBQAjZgf8K+AC/oh19q2pUhUB1OkEIFZ4aIaJ6vidy3k8JrVxPu+jAtqZbKNOY0smTekqOLwmC kTcF2ZKbv/u54bKtVXXpBqaRT7xeT23Lk1p0FYorCx 8LgtUwYOO0Bs+OtjgRAloQ8jnjz5t5KSqCOP86cw5o2vIPBt9iyZMCCndB0zGoMkZHhn+zrr1FJA43vO t8SfA5z+LKOBCkHRXcJGmU18RbU8/lkTalPSU+g7aZW7qoG8OoUzH+7vIgI3J8HTz7ePoeEJWc94s3Zf 99pJPg+Zw18WiRZZijJ1/2ZkgrracdhvVi9vl3v0rm u2/3pHkapr6k9IYMCl9dnG3PcB2vueLZKxPPVXdv1C56+CAROL+KbnRke21LB8yCojL7h3hAm2rnCy7rAgt Q74+JrQh/IV3rlNqwTvo1U2XxvSjWAtt6tL52SJ1aUw3FHYRIvPYtiRXymogbFWW3hrS0tUx/gmZ1TN9 3o/4JRZsR9KyH06EEjGcW0qug1G+a1sXY3x+SS/w+Q yiuKleMGc5G5COkjpB8Rg0BpNAFmTX0WkIdd0FBA85lPsZDK/ByqTbb1WlzRCsVr0af4qn0W8T2nnF+w cLAvvVubfztk1XMr/Q+h0hHCTy5b4jT+N7cVnF47yJcKgFtHJ7/FyPQZTy+MpUaRW1GMdF+fEnBy+OjF 11JXDwq1eiG5FYuwHXzSJaF8h7lzJyNZ2vhomF6WRX VXhEVoUI9BGngxg84th27iM79FmllYqDwourwrf+tCuPFdiSuMsYo6EqcLupa8wCjnrf5Jea2x4YgPxV cLjT4jyccQslZ3xKMD5KI+dUoBMsbNsjr9/npbFiO/2gkvXIi5Qa7StUthxvnlraqeO5Lfssp/BzvchR QMFi7bG+lWdDPLXo8Oz2EUri8aoMxZqqTYlqlHL+Polanco [file] tUUrWjgpkim96qePguqkHblhHThazA1oOUqXlk0 [file] Rodríguez+oN6x+761p6ujsPATLQF7IczQwvcuubUzGo9Ni/FiLjkqV0n4q7lZrQIXR079FmzUQMjcnDZSsj6E [file] k0Ky2ioumEY2/VYvUxC3z9cr19OrPrp/health unit clerk/0s48pXujLvtsoWQa3OsnnpE3Kn2lNKQ7QMYAhf2PfPz [file] vGXRk/ONnXJqSXBdjXXlZql/assignment manager+Qo7qvQaQ/jB7GkStKhonafMN5WsnN6WfjcMebUg7iM12bnw3htptf [file] EGDyDpmp0a4P0xX4DgjQ3wcwV8/k4kZCFamEj5vsZjj6ENIEhxZFAd+weasand trimmer+zs6c/gVbOgmLeyNwcXndfq [file] 8US57Q6oV7IqCsGfx7v3Pf7GsxFvoRLCLOOLd/Qi1Jvaq8Tn1W2pdy1aEE8lZKCirbUzvz7a6Pu7+Fiber Analyst [file] aPyxASjaI6vAxMPx+SqRUDMbv9P5v1Zr5NvTB9o9aclZ8Nmxd1XdvBm6eoNxvxggdDVGgyROPKEy+convertible power shovel operator [file] spanish language lecturer/tP6tdgns9mSivtxCeyITOfuj3jmWnH94nlvSyl [file] stamping die maker/iGqFByMbcp/2H7GH9gMKMiGXkyWqthqwZelWZ3 [file] Ann Marie+BPA8JanAQPDT6MfDiEuIhMw2E+mlOjSiN65lPWo/DwcI5q70xx+7KXxUF70yrj2KPeDk3MjhHxMF [file] kGsoJulFCT5zu1wzfqHK+Jose Luis+eZlwE1qSwkvCTDOEAD5ue7KFiFlApZI/xRuqX9RNZ5vAtTABdDcijjn [file] legal administrative assistant+YSHaBFS0/h7K54ZNWoUKZCV9VWSwMwhWu58nz [file] PAINTER DRUM+9fqLhtypvTFf44bH7WXQ+UbyTDsegq1GZYTpy0nE8zB/BcdlDWvpqIJ0ZXTaDpQbknC0dPMFt11F4 [file] Qa/7Yayecq6Stm7nugT8hip/B5v7Noj/bowling alley refinisher/wh8X29 [file] 4U03Au4/NPl/Ana Maria/X5slSSVSgT+K5AFgRukCn5pbf8aAh6h5JyD2NxvpDH5//4GMMvCMmUUxp8QjX3Lb [file] pE4QYkWNNj//30o1VoeHNnHf04puykyamk362UQ [file] AMRnD2AWZQTJjZDb6tCEEFEEZREEQbVuLKJ8EVG8Q8 IGE8DLB6GZkSJbAzV5SXWd4mHw2ojGPcKOCfJj1SplBjNOAvWEQHU7WszwBxHLsaRXufGEJqPRDlWk7Q IFsxIDQgMV0+AqZ5deRtpH0MtFiaPEBxIGKoXYCbENKRKS3OhMwYUNPidDV9wo8SpcJEs56RatWlRMF4 PwxMLgeSvN//qRfyPSOtVHVGcR4MSI9kPGXmHkGDBN avddVfvLSvMF5JVhBuIS6txx6SXiT1YTI1qBLrKt2HOZR9KTI6QA6GUZKGT9Y= ID Date Data Source [id number] 02/28/2021 01:52:00 PM EDT [facility] ([facility]) Name Value Range Interpretation Code Description Data Yolette rce(s) Supporting Document(s) Respiratory Panel [facility] This respiratory PCR panel detects Influ gabriel A H1, H3 and 2009 H1 viruses, Influenza B virus, Resp iratory Syncytial Virus, Human metapneumovirus, Parainfluenza virus 1, 2, 3 and 4, Adenovirus, Rhinovirus/Enterovirus, Coronavirus HKU1, NL63, OC43, 229E and SARS-CoV-2 (COVID 19), Bordetella pertussis, Bordetella parapertussis, Mycoplasma pneumoniae and Chlamydia pneumoniae. NEGATIVE by MULTIPLEXED NUCLEIC ACID PCR SARS-CoV-2 (COVID 19) NEGATIVE - SARS-CoV-2 (COVID19) ID Date Data Source [id number] 02/28/2021 01:52:00 PM EDT [facility] Name Value Range Interpretation Code Description Data Yolette rce(s) Supporting Document(s) SARS-CoV-2 (COVID 19) NEGATIVE - SARS-CoV-2 (COVID19) [facility] This lab was ordered by [facility] a nd reported by [facility]. ID Date Data Source [id number] 02/12/2021 09:56:00 AM EDT [facility] ([facility]) Name Value Range Interpretation Code Description Data Yolette rce(s) Supporting Document(s) Calcium [Moles/volume] in Serum or Plasma 9.6 mg/dL 8.8-10.2 [facility] ([facility]) ID Date Data Source [id number] 12/15/2020 04:32:00 PM EDT [facility] Name Value Range Interpretation Code Description Data Yolette rce(s) Supporting Document(s) SARS-CoV-2 (COVID 19) NEGATIVE - SARS-CoV-2 (COVID19) [facility] This lab was ordered by [facility] a nd reported by [facility]. ID Date Data Source [id number] 12/12/2020 06:39:00 PM EDT [facility] Name Value Range Interpretation Code Description Data Yolette rce(s) Supporting Document(s) SARS-CoV-2 (COVID 19) NEGATIVE - SARS-CoV-2 (COVID19) [facility] This lab was ordered by [facility] a nd reported by [facility]. ID Date Data Source [id number] 12/06/2020 01:08:00 PM EDT [facility] ([facility]) Name Value Range Interpretation Code Description Data Yolette rce(s) Supporting Document(s) Hemoglobin A1c 5.5 % Normal (applies to non-numeric r esults) [facility] ([facility]) <content>REFERENCE RANGES:</content><br/ ><content></content>
<content><=5.6% NORMAL</content>
<content>5.7-6.4% SUGGESTS IMPAIRED GLUCOSE METABOLISM/PREDIABETIC</content>
<content>>= 6.5% ABNORMAL</content>
<content></content> Estimated Average Glucose 111 mg/dL 60-110 Above high normal [facility] ([facility]) ID Date Data Source [id number] 12/06/2020 01:08:00 PM EDT [facility] ([facility]) Name Value Range Interpretation Code Description Data Yolette rce(s) Supporting Document(s) Blood Urea Nitrogen 21 mg/dL 7-18 Above high normal [facility] ([facility]) Glucose, Fasting 98 mg/dL 70-100 Normal (applies to non-numeric results) [facility] ([facility]) Creatinine For GFR 0.94 mg/dL 0.55-1.30 Normal (applies to non -numeric results) [facility] ([facility]) Glomerular Filtration Rate Laboratory test result Normal (applies to non- numeric results) [facility] ([facility]) <content>Units are mL/min/1.73 m2</content>
<content></content>
<content>Chronic Kidney Disease Staging per NKF:</content>
<content></content>
<content>Stage I & II GFR >=60 Normal to Mildly Decreased</content>
<content>Stage III GFR 30- 59 Moderately Decreased</content>
<content>Stage IV GFR 15-29 Severely Decreased</content>
<content>Stage V GFR <15 Very Little GFR Left</content>
<content>ESRD GFR <15 on ROVING CARRIER</content>
<content></content> Potassium Serum 4.4 meq/L 3.5-5.1 Normal (applies to non-numeric results) [facility] ([facility]) Chloride Level 107 meq/L 98-107 Normal (applies to non-numeric r esults) [facility] ([facility]) Sodium Level 140 meq/L 136-145 Normal (applies to non-numeric res ults) [facility] ([facility]) Calcium Level 9.5 mg/dL 8.8-10.2 Normal (applies to non-numeric re sults) [facility] ([facility]) Anion Gap 4 meq/L 8-16 Below low normal [facility] ( [facility]) Carbon Dioxide Level 29 meq/L 21-32 Normal (applies to non-num juanito results) [facility] ([facility]) Alkaline Phosphatase 66 U/L 45-117 Normal (applies to non-num juanito results) [facility] ([facility]) Alt/SGPT 26 U/L 12-78 Normal (applies to non-numeric resul ts) [facility] ([facility]) Ast/Sgot 16 U/L 7-37 Normal (applies to non-numeric resul ts) [facility] ([facility]) Bilirubin,Total 0.8 mg/dL 0.2-1.0 Normal (applies to non-numeric results) [facility] ([facility]) Albumin 3.8 GM/DL 3.2-5.2 Normal (applies to non-numeric resul ts) [facility] ([facility]) Albumin/Globulin Ratio 1.1 1.2-2.2 Below low normal [facility] ([facility]) Total Protein 7.3 GM/DL 6.4-8.2 Normal (applies to non-numeric re sults) [facility] ([facility]) ID Date Data Source [id number] 12/06/2020 01:08:00 PM EDT [facility] ([facility]) Name Value Range Interpretation Code Description Data Yolette rce(s) Supporting Document(s) Creatine kinase [Enzymatic activity/volume] in Serum or Plasma 5 5 U/L 26-192 Normal (applies to non-numeric results) [facility] ([facility]) Erythrocyte sedimentation rate by Westergren method 33 mm/hr 0-30 Above high normal [facility] ([facility]) C reactive protein [Mass/volume] in Serum or Plasma by High sensitivity method 0.30 mg/dL 0.00-0.30 Normal (applies to non-numeric results) [facility] ([facility]) ID Date Data Source [id number] 12/06/2020 01:08:00 PM EDT [facility] ([facility]) Name Value Range Interpretation Code Description Data Yolette rce(s) Supporting Document(s) White Blood Count 6.2 10 4.0-10.0 Normal (applies to non-numeri c results) [facility] ([facility]) Red Blood Count 4.27 10 4.00-5.40 Normal (applies to non-numeric results) [facility] ([facility]) Hemoglobin 12.5 g/dL 12.0-15.5 Normal (applies to non-numeric resul ts) [facility] ([facility]) Mean Corpuscular Volume 92.3 fl 80.0-96.0 Normal ( applies to non-numeric results) [facility] ([facility]) Hematocrit 39.4 % 36.0-47.0 Normal (applies to non-numeric resul ts) [facility] ([facility]) Mean Corpuscular Hemoglobin 29.3 pg 27.0-33.0 Norm al (applies to non-numeric results) [facility] ([facility]) Mean Corpuscular HGB Conc 31.7 g/dL 32.0-36.5 Below low normal [facility] ([facility]) Platelet Count, Automated 270 10 150-450 Normal (applies to non-numeric results) [facility] ([facility]) Red Cell Distribution Width 15.5 % 11.5-14.5 Above high normal [facility] ([facility]) Neutrophils % 67.1 % 36.0-66.0 Above high normal [facility] ([facility]) Lymph % 21.8 % 24.0-44.0 Below low normal [facility] ( [facility]) [place] % 7.1 % 2.0-8.0 Normal (applies to non-numeric resul ts) [facility] ([facility]) Baso % 0.8 % 0.0-1.0 Normal (applies to non-numeric resul ts) [facility] ([facility]) Eos % 2.9 % 0.0-3.0 Normal (applies to non-numeric resul ts) [facility] ([facility]) Nucleated Red Blood Cell % 0.0 % 0-0 Normal (applies to n on-numeric results) [facility] ([facility]) Immature Granulocyte % 0.3 % 0-3.0 Normal (applies to non-n umeric results) [facility] ([facility]) Neutrophils # 4.2 10 1.5-8.5 Normal (applies to non-numeric re sults) [facility] ([facility]) Lymph # 1.4 10 1.5-5.0 Below low normal [facility] ( [facility]) Eos # 0.2 10 0.0-0.5 Normal (applies to non-numeric resul ts) [facility] ([facility]) [place] # 0.4 10 0.0-0.8 Normal (applies to non-numeric resul ts) [facility] ([facility]) Baso # 0.1 10 0.0-0.2 Normal (applies to non-numeric resul ts) [facility] ([facility]) ID Date Data Source [id number] 11/26/2020 12:00:00 PM EDT [facility] Name Value Range Interpretation Code Description Data Yolette rce(s) Supporting Document(s) Follow Up [facility] BKVYQu5hCqDLGlGtGEWsDosRSTrsOBtmWFTpI5U5CEqhVx6LIGcfxsWzAKMyOm9+QACxWK0hjz6mKMJi gMy [file] P+xzpK4Bp+salesperson children's shoes/vmfWtNBSwdqlB27vzfw/j2QrfTRWdifrQnQMXnGVXSB4zdDJGeepWDNBDp80FBOpVL [file] inside technical sales representative/wXyzPSgSVxjz7e9IDpcsY+dqSSesi/+hZP++PH5sgSPDFnk8IRTY3MWLMz2zhh83/PpTC+TLeSoI [file] feed miller/kUkwU8sAXm8KF0AIFSgmRjmpPWU5m3plRLuwRreCKVNBRx7dubgRfn4hOj7TjEfVVnEbciC3g4zU [file] GoLsBSQeKFPizeyquSWLXEDFLieyow4S2yctaoxemx668/1am0gblxgK15vqLalpdn8paczkWmD/mdrd JGZvkwWt10fuLPc9bWEhen3i/i8FVKAZHFSsnmk5w/+tstm3YwqzkmZ19AC28U2UpnsvazOX+3LSx1nP 0da4m8baYrdjMwQysvuJpOdf7UpJ4U4O8WCgrm/0Yu t0jaCi45DLpVcCBqATrmWzlthpmAHul2Gns9S1DzPddubu0zxlmRXaP/r2gZgThwryzGZD94npr0KvXY oF8xJzOg3nzy8oTPGI7bG4gKvqqutmWw6+rsbGz8/4L95x8PlBQ5blCxKe9zA3mkAFbX79jTsgBl8P+U FAFumAA+9HujwozQXeptCIFlnGHBo/Ylq4aLnne1Pz ism1pJS/feAAUzrbNIeL63NlZ+ytS4K2bLnhyJCtsSjY10c4N56stFzzKwqbmTNQSc+Ames1URPpxXth 5+lkuYkRZbvH+ls+cX/lWcmhcgKHXTwhjnZ/WwarmXqarj4+siq/ePaSvWZ6u9QiLF4/WkYoQXEMurL7 OePipfZ+mZ+/Rc+PMUcz78M3NqvRrNwxaP6Y4FG+weasand trimmer [file] HbtE4PPKT+Tyu/JnW7af/Nina+Mar[place]/jmQeolcDz+i/o [file] BOXING PROMOTER/60V47wp5ZGOmA2LSEGsglNvU/fnD0c+RD3dBj+ [file] NS9pQr6d6/director clinical information services/bfOtiMSV1e3qCiTLaQbPoadW/OOp6khGvgm778yVY+5bwLV/6u6bE1d3oEgRn45nGJ [file] R8y09rOUhOZIRLf1IHhJO6+fgwZx0IYa4sxIyrNt8YtW0LoByM1E6GVfa2O0Rksv+q9Mk/instrumentation supervisor+Ai6c36 [file] orQs9Lfc8u2M7fD0BImkNFutUE9ekfJSgsO5/SI4JvYFu6naFzDcYD8Xg///61MSA9cKYtWxV7/d 78ukAEdOMszP1ex4/P0O7DPQYO6M210x2TAyf5EW4o 7LWC1ucM63QRlbbh7XVyFn3mD8GCYW8DoeMFiLjyb9QnZ+1jw308Bp/8eyqEw51m4KCCwkDethvl8OXz vLZaoa/qqI8qRpAdMBoNdnGhS3z7VL3A2sQIk+gVMMTUXWI/ED/TMxZZKsECn1+rhHXiHlYpvejOV+PAINTER DRUM [file] xhfV7+fZ/3e3ocr+ppvtl1I74MkWXvxt7G0YQV3/MEAT MARKET MANAGER [file] hCoBnQHGTt3ppGDoTXxNpFyMHiYuuSdmn5LbCdTsfn4z+10J4e3jitEKqoDFz9RTT76BCDVwAnnl/INDUSTRIAL SERVICES WORKER [file] fI3d7UC7xMVZ3+UwAWXQIhBzFX4xbt+Security Systems Technician/Gzv9abeQNvkYmDhJ7Baf730tqOAaiaxi6v33+NDoJrkir [file] /etbm5H58w4NbRpAXZEckdjz+pSfUe67stjy00/Jose E [file] dV1GUk1dRR1fza7zNcA5i9MPfUHxy2HRrn0dhWzlFZT8Pvp4JjDF8a+MEAT MARKET MANAGER+8NmGR+RYgBlOuqYwilxi2w [file] i+yvwqcrkYSDBWR3ptwC6KBJfWmmjc5d/B9pkUHGpwbDfeE1z/QPlu8Khwn+bdY7m+MASON/dwhmWpJtcI q62vdJ47szio+DqiAAjqh5pAXUK2yPiCnC+MPZmXtiys26Uz5BZ4NVWEUwqB7rQSxed+IE5aGf677nA3 u6DL6t3tIe/69D/5ayCrbUpXctf/LZpfHPAHd/5IDO rVJk5VTVQK309ZI4cHyL2/BED2yUln15BI41by/9ym6fkZ+HHF6wQxnsBuRUO2rFPSzTO4dBqxBniDiG T+N1JOvhGy05kJeVc712T1rNrNu5ybBAGG+4qFKiBCaOMCz7TmrSm6RZQYdZ1OkQtovr2QcJSHaLPPFo HwsjmIEDod2bmA73p1WJL1qy2MOuoEB1fwW/JqSkrg eXOV0d1Prt8xVKgc+ialXKFYAU6e6hwX16w4KrZov8J/nEjFC/LIJ6iJArygs82McXaP72DMh9bbmRp0 nmnSE6yvSBFqEsnhZ+b7qNPvM9FhduxxTIHTQmv6pwR3qas43cdfsP5QDfb7RrEXKSOLMJ//fpyfz/chiller technician 9q0OxYSOnxdKg9vImIovfgUnEIpjBsWexBkegr0Ao1 O2gx1F5aVrzVCRf1CGJfkC16z864++JksoogzuguYDV/STEPHANIA/u77V7jxh4FXNDd7t1eQcwpPtQ3L6SlHX [file] BWqJaE5U4OI2O4L22kyh/6kOSzKWk1/Sandra+jwFa2MG+I+B7WdqRgyM/lnZc4HKUgh3fPjob6Nu/LGESI Q5T7+NdWv+TneekmIfOniHD/OyLC/1NEXgoEo+a69Xoqx/PIuybM9adI8EYPEJJKI847sbpLW4ZQaZz0 TYS5+bjtsYP4XyHe5trOLWKqJQkA5aW0WJl7gvsfEZ nYxL7zZz1fSx2ocbDIAcqJt6Ry+x/FQCCY+GG94UinFgZg55LlpZKC8+MJ2crPB/tje89CjuXavJQgEG ryIuSfAzPGu4S2n5OHOaec1btj1ZUTsWQjGJuEJO8lIECeNVpglfMkXQVbd9Q8xpUqCiZ5NKE5VyEwxx koet7e4UuEgUlRY2WtNy1r3UJk//SUdSl8dyCncMxL pchyVFxkO2kE6619gLgKattA/dfXwFk32YSGzQ5f2Gos9cjT/iV5wkHcNIuhCyU5f+k8uTXWhbAj56NK +q/F6E64owMQBlFKln4a5t7iP2DP90RlKCh8TsIPZqQ5jMyki3LJpl0Cay1pasKnRaPFJ2QdtF+A7CXH e+tZp3IYrqa9wuuss2vHS8uFFQ0bgjikg9tIcmhTQd cEQRolUL5H6i1HkW3UsRgdllVdi8WniSGOZfnY62WScofWF7CK1RjBKCnv+/H9HHh/VrEPvdqr+pjX6z Db7fEU8aBYgVaV4c9fOs8aa5Q18GbJj4ukdu3EaZR18vFhV3Y4bh1cd9pKwfCBzMf8Fp+Senior Games Technician+vYIjd3DT [file] g7yk2cqaXdylQDWpDmKvMqVefZy9J7mQETdUGOkaUrX1DGwYpq57qtjhJyqbuCjjeNCSKPT2/eB6N/weasand trimmer [file] JRLkaGWB5BSH8cr3UjWDFdALestxLaPwsJFKhxtCDteDexTIMQIvChHjT2MvHGCmTaWL3R ID Date Data Source [id number] 11/25/2020 12:04:00 PM EDT [facility] ([facility] ) Name Value Range Interpretation Code Description Data Yolette rce(s) Supporting Document(s) Antinuclear Antibodies Direct Laboratory test result [facility] ([facility], ) Performed at: [facility] [id number] Commercial Intelligence Manager: Devante Nuñez MD, Phone: [phone] Performed at: [address] [id number] Commercial Intelligence Manager: Melissa Guajardo MD, Phone: [phone] ID Date Data Source [id number] 11/25/2020 12:04:00 PM EDT [facility] ([facility] ) Name Value Range Interpretation Code Description Data Yolette rce(s) Supporting Document(s) Pyridoxine [Mass/volume] in Serum or Plasma 4.0 ug/L 2.0-32.8 [facility] ([facility] ) Specimen Comment: Test(s) [id number] E(Alpha Tocopherol); 433008- Specimen Comment: Vitamin E(Gamma Tocopherol); 336536-Wtfxxil B6; 173925- Specimen Comment: Vit. B1, Whole Blood Specimen Comment: was developed and its performance characteristics Specimen Comment: determined by [facility]. It has not been cleared or approved Specimen Comment: by the Food and Drug Administration. Thiamine [Mass/volume] in Blood 102.3 nmol/L 66.5-200.0 [facility] ([facility] ) Specimen Comment: Test(s) [id number]-Vzqmsln E(Alpha Tocopherol); 093637- Specimen Comment: Vitamin E(Gamma Tocopherol); 519919-Bhvuwqe B6; 487921- Specimen Comment: Vit. B1, Whole Blood Specimen Comment: was developed and its performance characteristics Specimen Comment: determined by [facility]. It has not been cleared or approved Specimen Comment: by the Food and Drug Administration. ID Date Data Source [id number] 11/25/2020 12:04:00 PM EDT [facility] ([facility], ) Name Value Range Interpretation Code Description Data Yolette rce(s) Supporting Document(s) Vitamin E(Alpha Tocopherol) 10.2 mg/L 9.0-29.0 [facility] ([facility], ) Vitamin E(Gamma Tocopherol) 3.5 mg/L 0.5-4.9 [facility] ([facility]) Reference intervals for alpha and gamma- tocopherol determined from National Health and Nutrition Examination Survey, 1059-5256. Individuals with alpha-tocopherol levels less than 5.0 mg/L are considered vitamin E deficient. ID Date Data Source [id number] 11/25/2020 12:04:00 PM EDT [facility] ([facility], ) Name Value Range Interpretation Code Description Data Yolette rce(s) Supporting Document(s) PTT Lupus Type Anticoag Screen 1.1 0-1.2 [facility] ([facility]) RESULT IS LESS THAN 1.2, NO FURTHER TEST ING INDICATED. INTERPRETATION This test is to screen those individuals that may have a circulating lupus anticoagulant. If the LA Screen test is normal, and/or the LA Confirm test is normal, the presence of a Lupus Anticoagulant (LA) is unlikely, but does not completely exclude LA-like activity. If both tests or the LA Confirm test are elevated, the specimen will be reflexed to a hexagonal phase phospholipid test through our reference laboratory for confirmation. A positive hexagonal phase phospholipid is indicative of LA. A negative hexagonal phase phospholipid test may indicate a coagulation factor deficiency or a specific inhibitor. ID Date Data Source [id number] 11/25/2020 12:04:00 PM EDT [facility] ([facility], ) Name Value Range Interpretation Code Description Data Yolette rce(s) Supporting Document(s) Rheumatoid factor [Units/volume] in Serum or Plasma Laboratory test result [facility] ([facility], ) ID Date Data Source [id number] 11/25/2020 12:04:00 PM EDT [facility] ([facility], ) Name Value Range Interpretation Code Description Data Yolette rce(s) Supporting Document(s) Folate 7.3 ng/mL [facility] ([facility], ) FOLATE NORMAL RANGE NORMAL GREATER THAN 5.4 NG/ML INDETERMINATE 3.4-5.4 NG/ML DEFICIENT LESS THAN 3.4 NG/ML Vitamin B12 Level 445 pg/mL [facility] ([facility], ) VITAMIN B12 NORMAL RANGE NORMAL 247 - 911 PG/ML INDETERMINATE 211 - 246 PG/ML DEFICIENT LESS THAN 211 PG/ML ID Date Data Source [id number] 11/25/2020 12:04:00 PM EDT [facility] ([facility], ) Name Value Range Interpretation Code Description Data Yolette rce(s) Supporting Document(s) Thyroxine (T4) free [Mass/volume] in Serum or Plasma 0.83 ng/dL 0.76- 1.46 [facility] ([facility], ) ID Date Data Source [id number] 11/25/2020 12:04:00 PM EDT [facility] ([facility]) Name Value Range Interpretation Code Description Data Yolette rce(s) Supporting Document(s) T Uptake 34 % 30-39 [facility] ([facility]) Thyroid Stimulating Hormone 2.290 uIU/ML 0.358-3.740 [facility] ([facility]) Thyroxine (T4) 6.3 ug/dL 4.5-12.0 [facility] ([facility]) Free Thyroxine Index 2.1 % 1.3-4.8 [facility] ([facility]) ID Date Data Source [id number] 11/25/2020 12:04:00 PM EDT [facility] ([facility]) Name Value Range Interpretation Code Description Data Yolette rce(s) Supporting Document(s) Albumin % 57.3 % 55.8-66.1 [facility] ([facility], ) Fvzuc-5-Rxncagrh % 4.6 % 2.9-4.9 [facility] ([facility], ) Arbu-9-Wfrtlmuyg % 5.7 % 4.7-7.2 [facility] ([facility], ) Gpbhd-4-Psnksjeuz % 11.8 % 7.1-11.8 [facility] ([facility], ) Emxe-8-Wspbsjsep % 5.5 % 3.2-6.5 [facility] ([facility], ) Gamma Globulin % 15.1 % 11.1-18.8 [facility] ([facility] ) Albumin 4.24 GM/DL 3.29-5.55 [facility] ([facility]) Wmwqf-5-Tuuemfrih 0.34 GM/DL 0.17-0.41 [facility] ([facility]) Jkwlz-4-Vdephvrvo 0.87 GM/DL 0.42-0.99 [facility] ([facility]) Gamma Globulins 1.12 GM/DL 0.65-1.58 [facility] ([facility]) Kwfd-4-Yckywczse 0.41 GM/DL 0.19-0.55 [facility] ([facility]) Zwdf-5-Bqpgzhobt 0.42 GM/DL 0.28-0.60 [facility] ([facility]) Spep Interpretation Laboratory test result [facility] ([facility]) NO M-SPIKE(S)NOTED. Total Protein 7.4 GM/DL 6.4-8.2 [facility] ([facility]) Laboratory test finding (navigational concept) Laboratory test result [facility] ([facility]) REV'D BY Cherie CAIN ID Date Data Source [id number] 11/25/2020 12:04:00 PM EDT [facility] ([facility]) Name Value Range Interpretation Code Description Data Yolette rce(s) Supporting Document(s) Hemoglobin A1c 6.2 % [facility] ([facility]) <content>REFERENCE RANGES:</content><br/ ><content></content>
<content><=5.6% NORMAL</content>
<content>5.7-6.4% SUGGESTS IMPAIRED GLUCOSE METABOLISM/PREDIABETIC</content>
<content>>= 6.5% ABNORMAL</content>
<content></content> Estimated Average Glucose 131 mg/dL 60-110 [facility] ([facility]) ID Date Data Source [id number] 11/25/2020 12:04:00 PM EDT [facility] ([facility]) Name Value Range Interpretation Code Description Data Yolette rce(s) Supporting Document(s) Erythrocyte sedimentation rate by 2H Westergren method 33 mm/hr 0-3 0 [facility] ([facility]) ID Date Data Source [facility] CT ANGIO CHEST 10/24/2020 12:00:00 AM EDT eCW1 ([facility]) Name Value Range Interpretation Code Description Data Yolette rce(s) Supporting Document(s) [facility] ANGIO CHEST eCW1 ([facility]) ID Date Data Source [facility] Chest, 2 view (PA\\Lat) 10/14/2020 12:00:00 AM EDT eCW1 ( [facility]) Name Value Range Interpretation Code Description Data Yolette rce(s) Supporting Document(s) [facility] Chest, 2 view (PA\\Lat) eCW 1 ([facility]) ID Date Data Source [id number] 10/09/2020 05:18:00 PM EST [facility] ([facility]) Name Value Range Interpretation Code Description Data Yolette rce(s) Supporting Document(s) Bacteria identified in Blood by Culture Laboratory test result [facility] ([facility]) No growth after 72 hours . All specimens observed for 5 days. Results final at that time. No growth after 48 hours . All specimens observed for 5 days. Results final at that time. No growth after 24 hours . All specimens observed for 5 days. Results final at that time. NO GROWTH AFTER 5 DAYS Erythrocyte sedimentation rate by Westergren method 35 mm/hr 0-30 Above high normal [facility] ([facility]) ID Date Data Source [id number] 10/09/2020 05:18:00 PM EST [facility] ([facility]) Name Value Range Interpretation Code Description Data Yolette rce(s) Supporting Document(s) Red Blood Count 4.72 10 4.00-5.40 Normal (applies to non-numeric results) [facility] ([facility]) White Blood Count 7.5 10 4.0-10.0 Normal (applies to non-numeri c results) [facility] ([facility]) Hematocrit 41.5 % 36.0-47.0 Normal (applies to non-numeric resul ts) [facility] ([facility]) Hemoglobin 13.5 g/dL 12.0-15.5 Normal (applies to non-numeric resul ts) [facility] ([facility]) Mean Corpuscular Volume 87.9 fl 80.0-96.0 Normal ( applies to non-numeric results) [facility] ([facility]) Mean Corpuscular Hemoglobin 28.6 pg 27.0-33.0 Norm al (applies to non-numeric results) [facility] ([facility]) Mean Corpuscular HGB Conc 32.5 g/dL 32.0-36.5 Normal (applies to non-numeric results) [facility] ([facility]) Red Cell Distribution Width 13.7 % 11.5-14.5 Norm al (applies to non-numeric results) [facility] ([facility]) Platelet Count, Automated 233 10 150-450 Normal (applies to non-numeric results) [facility] ([facility]) Neutrophils % 67.6 % 36.0-66.0 Above high normal [facility] ([facility]) Lymph % 20.9 % 24.0-44.0 Below low normal [facility] ( [facility]) [place] % 8.2 % 2.0-8.0 Above high normal [facility] ([facility]) Eos % 2.5 % 0.0-3.0 Normal (applies to non-numeric resul ts) [facility] ([facility]) Baso % 0.4 % 0.0-1.0 Normal (applies to non-numeric resul ts) [facility] ([facility]) Immature Granulocyte % 0.4 % 0-3.0 Normal (applies to non-n umeric results) [facility] ([facility]) Neutrophils # 5.1 10 1.5-8.5 Normal (applies to non-numeric re sults) [facility] ([facility]) Nucleated Red Blood Cell % 0.0 % 0-0 Normal (applies to n on-numeric results) [facility] ([facility]) [place] # 0.6 10 0.0-0.8 Normal (applies to non-numeric resul ts) [facility] ([facility]) Lymph # 1.6 10 1.5-5.0 Normal (applies to non-numeric resul ts) [facility] ([facility]) Eos # 0.2 10 0.0-0.5 Normal (applies to non-numeric resul ts) [facility] ([facility]) Baso # 0.0 10 0.0-0.2 Normal (applies to non-numeric resul ts) [facility] ([facility]) ID Date Data Source [id number] 10/09/2020 05:18:00 PM EST [facility] ([facility]) Name Value Range Interpretation Code Description Data Yolette rce(s) Supporting Document(s) Venous Partial Pressure Co2 49.8 mmHg 38.0-50.0 Norm al (applies to non-numeric results) [facility] ([facility]) Venous PH 7.386 units 7.330-7.430 Normal (applies to non-numeric res ults) [facility] ([facility]) Venous Partial Pressure O2 38.2 mmHg 30.0-50.0 Dipti l (applies to non-numeric results) [facility] ([facility]) Venous Total Co2 30.7 meq/L 24.0-28.0 Above high normal [facility] Venous Base Excess 3.2 Above high normal [facility] ([facility]) Venous Hco3 29.2 meq/L 23.0-27.0 Above high normal [facility] ([facility]) Venous O2 Saturation 71.8 % 60.0-80.0 Normal (applies to non-num juanito results) [facility] ([facility]) Venous Standard Hco3 26.7 meq/L Normal (applies to non-num juanito results) [facility] ([facility]) ID Date Data Source [id number] 10/09/2020 04:53:00 PM EST [facility] ([facility]) Name Value Range Interpretation Code Description Data Yolette rce(s) Supporting Document(s) Glucose, Fasting 110 mg/dL 70-100 Above high normal [facility] Blood Urea Nitrogen 21 mg/dL 7-18 Above high normal [facility] ([facility]) Creatinine For GFR 1.30 mg/dL 0.55-1.30 Normal (applies to non -numeric results) [facility] ([facility]) Glomerular Filtration Rate 42.6 Normal (applies to n on-numeric results) [facility] ([facility]) <content>Units are mL/min/1.73 m2</content>
<content></content>
<content>Chronic Kidney Disease Staging per NKF:</content>
<content></content>
<content>Stage I & II GFR >=60 Normal to Mildly Decreased</content>
<content>Stage III GFR 30- 59 Moderately Decreased</content>
<content>Stage IV GFR 15-29 Severely Decreased</content>
<content>Stage V GFR <15 Very Little GFR Left</content>
<content>ESRD GFR <15 on [employer]</content>
<content></content> Sodium Level 138 meq/L 136-145 Normal (applies to non-numeric res ults) [facility] ([facility]) Potassium Serum 4.1 meq/L 3.5-5.1 Normal (applies to non-numeric results) [facility] ([facility]) Chloride Level 103 meq/L 98-107 Normal (applies to non-numeric r esults) [facility] ([facility]) Carbon Dioxide Level 31 meq/L 21-32 Normal (applies to non-num juanito results) [facility] ([facility]) Anion Gap 4 meq/L 8-16 Below low normal [facility] Calcium Level 9.3 mg/dL 8.8-10.2 Normal (applies to non-numeric re sults) [facility] ([facility]) ID Date Data Source [id number] 10/09/2020 04:53:00 PM EST [facility] ([facility]) Name Value Range Interpretation Code Description Data Yolette rce(s) Supporting Document(s) Alt/SGPT 24 U/L 12-78 Normal (applies to non-numeric resul ts) [facility] ([facility]) Ast/Sgot 17 U/L 7-37 Normal (applies to non-numeric resul ts) [facility] ([facility]) Alkaline Phosphatase 69 U/L 45-117 Normal (applies to non-num juanito results) [facility] ([facility]) Bilirubin,Total 0.5 mg/dL 0.2-1.0 Normal (applies to non-numeric results) [facility] ([facility]) Bilirubin,Direct 0.2 mg/dL 0.0-0.2 Normal (applies to non-numeric results) [facility] ([facility]) Total Protein 7.7 GM/DL 6.4-8.2 Normal (applies to non-numeric re sults) [facility] ([facility]) Albumin 4.1 GM/DL 3.2-5.2 Normal (applies to non-numeric resul ts) [facility] ([facility]) Albumin/Globulin Ratio 1.1 1.2-2.2 Below low normal [facility] ([facility]) ID Date Data Source [id number] 10/09/2020 04:53:00 PM EST [facility] ([facility]) Name Value Range Interpretation Code Description Data Yolette rce(s) Supporting Document(s) CPK Creatine Phosphokinase 53 U/L 26-192 Dipti l (applies to non-numeric results) [facility] ([facility]) CK-MB Value Mass Laboratory test result Normal ( applies to non-numeric results) [facility] ([facility]) MB/CK Relative Index 1.89 Normal (applies to non-num juanito results) [facility] ([facility]) <content>DIAGNOSIS CRITERIA</content>
<content>MMB ng/ml Relative Index (RI)</content>
<content>NON-AMI < or = 5 N/A</content>
<content>PEREIRA ZONE > 5 < or = 4</content>
<content>AMI > 5 > 4</content>
<content></content> Troponin I Laboratory test result Normal (applies to non-n umeric results) [facility] ([facility]) <content>Troponin I Reference Interval f or Siemens [place] LOCI:</content>
<content></content>
<content>99th Percentile= 0.00-0.045 ng/ml</content>
<content></content>
<content>Risk Stratification:</content>
<content><= 0.10 ng/ml Decreased Risk for Adverse Clinical</content>
<content>Events.</content>
<content>0.10-1.50 ng/ml Increased Risk for Adverse Clinical</content>
<content>Events. Evaluation of additional</content>
<content>criterion and/or repeat testing in 2-6</content>
<content>hours is suggested to rule out myocardial</content>
<content>damage.</content>
<content>>= 1.50 ng/ml Indicative of Myocardial Injury.</content>
<content></content> ID Date Data Source [id number] 10/09/2020 04:53:00 PM EST [facility] ([facility]) Name Value Range Interpretation Code Description Data Yolette rce(s) Supporting Document(s) Lactate [Mass/volume] in Serum or Plasma 1.4 mmol/L 0.4-2.0 Normal (applies to non-numeric results) [facility] ([facility]) Y/N query for Sepsis Lactate Rule: Y ID Date Data Source [id number] 10/09/2020 04:53:00 PM EST [facility] ([facility]) Name Value Range Interpretation Code Description Data Yolette rce(s) Supporting Document(s) Fibrin D-dimer FEU [Mass/volume] in Platelet poor plasma Lab oratory test result Normal (applies to non-numeric results) [facility] ([facility]) ID Date Data Source [id number] 10/09/2020 04:53:00 PM EST [facility] ([facility]) Name Value Range Interpretation Code Description Data Yolette rce(s) Supporting Document(s) Prothrombin Time 29.0 s 12.5-14.3 Above high normal [facility] Inr 2.67 Normal (applies to non-numeric resul ts) [facility] ([facility]) THERAPUTIC HUMAN INR VALUES INDICATIONS NORMAL RANGES PROPHYLAXIS/TREATMENT OF: VENOUS THROMBOSIS 2.0-3.0 PULMONARY EMBOLISM 2.0-3.0 PREVENTION OF SYSTEMIC EMBOLISM FROM: TISSUE HEART VALVES 2.0-3.0 ACUTE MYOCARDIAL INFARCTION 2.0-3.0 VALVULAR HEART DISEASE 2.0-3.0 ATRIAL FIBRILLATION 2.0-3.0 MECHANICAL VALVES(HIGH RISK) 2.5-3.5 RECURRENT MYOCARDIAL INFARCTION 2.5-3.5 ID Date Data Source [id number] 10/09/2020 04:53:00 PM EST [facility] ([facility]) Name Value Range Interpretation Code Description Data Yolette rce(s) Supporting Document(s) Lactate dehydrogenase [Enzymatic activit y/volume] in Serum or Plasma by Lactate to pyruvate reaction 184 U/L 84-246 Normal (applies to non-numeric re sults) [facility] ([facility]) Natriuretic peptide.B prohormone N-Terminal [Mass/volu me] in Serum or Plasma 58 pg/mL Normal (applies to non-numeric results) [facility] ([facility]) Thyroxine (T4) [Mass/volume] in Serum or Plasma 10.2 ug/dL 4.5-12.0 Normal (applies to non-numeric results) [facility] ([facility]) Thyrotropin [Units/volume] in Serum or Plasma 2.880 uIU/ML 0. 358-3.740 Normal (applies to non-numeric results) [facility] ([facility]) Ferritin [Mass/volume] in Serum or Plasma 38 ng/mL 8-252 Normal (applies to non- numeric results) [facility] C reactive protein [Mass/volume] in Serum or Plasma by High sensitivity method 0.30 mg/dL 0.00-0.30 Normal (applies to non-numeric results) [facility] ID Date Data Source [id number] 10/06/2020 12:00:00 AM EST [facility] Name Value Range Interpretation Code Description Data Yolette rce(s) Supporting Document(s) Carestart Rapid COVID Antigen Test Positive [facility] This lab was reported by Wilson jansen. ID Date Data Source [id number] 08/31/2020 12:00:00 AM EST [facility] Name Value Range Interpretation Code Description Data Yolette rce(s) Supporting Document(s) SARS-CoV2 Rapid Antigen Negative [facility] This lab [facility] by [facility] and reported by [facility]. ID Date Data Source [id number] 08/12/2020 12:00:00 AM EST [facility] Name Value Range Interpretation Code Description Data Yolette rce(s) Supporting Document(s) Carestart Rapid COVID Antigen Test Negative [facility] This lab was reported by [facility]. ID Date Data Source [id number] 08/12/2020 12:00:00 AM EST [facility] Name Value Range Interpretation Code Description Data Yolette rce(s) Supporting Document(s) SARS coronavirus 2 RNA [Presence] in Res piratory specimen by NATHALY with probe detection NEGATIVE [facility] This lab was ordered by [facility] Garcia and reported by [facility]. ID Date Data Source [id number] 08/01/2020 11:15:00 AM EST [facility] ([facility]) Name Value Range Interpretation Code Description Data Yolette rce(s) Supporting Document(s) Calcidiol [Mass/volume] in Serum or Plasma 74.3 ng/mL 30.0-100.0 [facility] ([facility]) Calcium [Mass/volume] in Serum or Plasma 9.0 mg/dL 8.8-10.2 [facility] ([facility]) Thyrotropin [Units/volume] in Serum or Plasma by Detec tion limit <= 0.05 mIU/L 2.060 uIU/ML 0.358-3.740 [facility] ([facility]) ID Date Data Source [id number] 08/01/2020 11:15:00 AM EST [facility] ([facility]) Name Value Range Interpretation Code Description Data Yolette rce(s) Supporting Document(s) Thyrotropin [Units/volume] in Serum or Plasma 2.060 uIU/ML 0. 358-3.740 Normal (applies to non-numeric results) [facility] ([facility]) Calcium [Mass/volume] in Serum or Plasma 9.0 mg/dL 8.8-10. 2 Normal (applies to non-numeric results) [facility] ([facility]) Calcidiol [Mass/volume] in Serum or Plasma 74.3 ng/mL 30.0- 100.0 Normal (applies to non-numeric results) [facility] ([facility]) ID Date Data Source [id number] 08/01/2020 09:41:00 AM EST [facility] ([facility]) Name Value Range Interpretation Code Description Data Yolette rce(s) Supporting Document(s) Inhouse Leukocytes Laboratory test result [facility] ([facility]) Inhouse Nitrite Laboratory test result [facility] ([facility]) Inhouse Urobilinogen Laboratory test result [facility] ([facility]) Inhouse Protein Laboratory test result [facility] ([facility]) Inhouse PH 5 [facility] ([facility]) Inhouse Hemoglobin Laboratory test result [facility] ([facility]) Inhouse Specific [place] 1.030 [facility] ([facility]) Inhouse Ketones Laboratory test result [facility] ([facility]) Inhouse Bilirubin Laboratory test result [facility] ([facility]) Inhouse Glucose Laboratory test result [facility] ([facility]) ID Date Data Source [id number] 08/01/2020 09:40:00 AM EST [facility] ([facility]) Name Value Range Interpretation Code Description Data Yolette rce(s) Supporting Document(s) Bacteria identified in Urine by Culture Laboratory test result Normal (applies to non-numeric results) [facility] ([facility]) <content>FULL REPORT IN LAB NOTES ([facility]).</content>
<content></content>
<content>ORGANISM 1: ESCHERICHIA COLI</content>
<content></content>
<content>COLONY COUNT > 100,000</content>
<content></content>
<content></content>
<content>O RGANISM 1: ESCHERICHIA COLI</content>
<content></content>
<content> ESCHERICHIA COLI: REACTION</content>
<content>TRIMETHOPRIM/SULFAMETHOXAZOLE IV 160mg TMP & 800mg SMXq6h <=20 S</content>
<content> TRIMETHOPRIM/SULFAMETHOXAZOLE PO Bactrim DS Bid <=20 S</content>
<content>AMPICILLIN IV 500mg q6h 4 S</content>
<content>AMPICILLIN PO 500mg q6h fasting 4 S</content>
<content>GENTAMICIN IV 80mg q8h <=1 S</content>
<content>NITROFURANTOIN PO 100mg BID <=16 S</content>
<content>CEFAZOLIN IV 1gm q8h <=4 S</content>
<content> LEVOFLOXACIN IV 500mg qd <=0.12 S</content>
<content>LEVOFLOXACIN PO 250mg qd <=0.12 S</content>
<content>LEVOFLOXACIN PO 500mg qd <=0.12 S</content>
<content>TOBRAMYCIN IV 80mg q8h <=1 S</content>
<content>CEFTRIAXONE IV 1gm q24h <=1 S</content>
<content>CEFTAZIDIME IV 1gm q8h <=1 S</content>
<content> AMPICILLIN/SULBACTAM IV 1.5g q6h <=2 S</content>
<content>PIPERACILLIN/TAZOBACTAM IV 2.25 gm q6h <=4 S</content>
<content>AZTREONAM IV 1gm q8h <=1 S</content>
<content>ERTAPENEM IV 1gm qd <=0.5 S</content>
<content>MEROPENEM IV 1 gm q8h <=0.25 S</content>
<content>MEROPENEM IV 500 mg q8h <=0.25 S</content>
<content>TIGECYCLINE IV 50mg q12h <=0.5 S</content>
<content>CEFEPIME IV 1 gm q12h <=1 S</content>
<content>CEFEPIME IV 2 gm q12h <=1 S</content>
<content>EXTD BRD SPCTRM BETA LACTAMASE IV NEGATIVE FOR ESBL</content>
<content></content> ID Date Data Source [id number] 07/08/2020 04:20:00 PM EST [facility] Name Value Range Interpretation Code Description Data Yolette rce(s) Supporting Document(s) SARS-CoV-2 (COVID 19) [facility] This lab was ordered by [facility] a nd reported by [facility]. ID Date Data Source [id number] 07/08/2020 04:20:00 PM EST [facility] ([facility]) Name Value Range Interpretation Code Description Data Yolette rce(s) Supporting Document(s) Respiratory Panel Laboratory test result [facility] ([facility]) This respiratory PCR panel detects Influ gabriel A H1, H3 and 2009 H1 viruses, Influenza B virus, Resp iratory Syncytial Virus, Human metapneumovirus, Parainfluenza virus 1, 2, 3 and 4, Adenovirus, Rhinovirus/Enterovirus, Coronavirus HKU1, NL63, OC43, 229E and SARS-CoV-2 (COVID 19), Bordetella pertussis, Bordetella parapertussis, Mycoplasma pneumoniae and Chlamydia pneumoniae. NEGATIVE by MULTIPLEXED NUCLEIC ACID PCR SARS-CoV-2 (COVID 19) NEGATIVE - SARS-CoV-2 (COVID19) ID Date Data Source [id number] 07/08/2020 04:20:00 PM EST [facility] ([facility]) Name Value Range Interpretation Code Description Data Yolette rce(s) Supporting Document(s) Coronavirus 2019 Nasopharygeal Laboratory test result [facility] ([facility]) ID Date Data Source [id number] 05/28/2020 12:30:00 PM EDT [facility] Name Value Range Interpretation Code Description Data Yolette rce(s) Supporting Document(s) Follow Up [facility] ECLCXz4jFmNKGtOqTGCkDzpPACsbVYkmCNGeT0K5UYmeBa1GNYbzemZxDJRaYf7+TNGrEI7ehr3bAFUu y [file] Ssrv0u5ZFYctiobZMyszPs7WB86tEPxh8Bma79Ii14TtL0O+HEAT TREATER+3gVjJ9tFR5LQKqdzz44bgZOyMaYJ [file] V4FnfFwDju6q0kV0sOF9Ugf6+county historian+N3V70g2+S3ncbJ9AMZC80pMaoDMnDZqG4vyub5uYqDzgk7xEh2h [file] x4VcKypGo9KXosUzVtG7fHcNSgBWlx5yDOs+exhibit builder/XC [file] 3BuFO0gXMtrmTzHHcFxoeNzwJwwVEm3uymQGsJEARt3fBRoaIJyeJdHregIYD15QtMUt/Diamond Setter/FUpQRDCj [file] ZTG6Gm0urUOYKo3DDtLV7nP5vsaT3/mary lou+//YY49sv [file] qEMM/WX/pGrV7/long-term/zKQhSRk+w0jzOhqZiVMs7wr4 vnaHYHjWx6KkeGnraPfz4zNw8sLL1wZ68WYvbps5yFuP2IkIBptV7gU0yJOlL37Bn/lPgA9+sndR81ZN i1qpYUMu6NitWtTcsF82AVKB1LPUyUvvzx924Gw6kVque7Szacl5VHG1JXto03fAoGcPgkjksSV4FZbe kmQhRSFlPGDEl3CMo8GjMT++mubt1D3KKLwG7F0Qzb TUEcW+CJ/tIjBzKSUyzYxuEJImWfsx+JixXrbBrx8Xs3Mkdjxs26i7goUx+veRHWFdjmG3KcSqGvy6WQ yP72iPpXKSBvakI7v/d+OY654LBA5DHu2i7AV3K9JzC+2SE57mAlM/XBpceGzmvBZzY2th5tBlO6xqMj k5FBJf28XZ3+LGF44ilxaKxj95vFTOimRXx0UYFEHv RLfkNSRPT8Q8e+IWpjJLl+rNQ1PoQ/V+qP6HY0NFbPIdYCGbxKVobLqFImZ79OvO6EyIeUMFG49rNAX4 fmj5D6MQhKC/vTSzVHX/aPeb6ozv5+0gits2lsgAhZu9yaMMKn8OCbw45xxLaOdOYZo8yedIu2FBDV0I MFqvlf02p6eKxFan6B1ydIrXNmgsFIvM29Te2QIlrT fU8NDfgR7triHEFxxmL27zJVeIEK4Wk6muuWQUE3J+JsDJtZN+JltivREla14qDXpqP7dm/ckwUyXCyj zqr0DIPpMJ7OXwnkFsqeKwQQQkJjHjEhKsBYZW1b1BJzZiesb6HnZR9q58wQuYALAp01HeTyVv1VXcI3 DTxEiVCclMkexbGuZsUDI/7PjtOivfTkRuzG+daVhy UIYja2MCnW9T9crVYKIwE9jN0hAzE7/fz9p1T4Bqpbt+MHUXhgZ/Nq4QU+h3aYi7eh+B4cAuEZKalSV8 gWuCLbtJVdE8dmiB2wV0Qmb7ofvg/+OVt62deDCNxwp9dS40laHY6CFHqLp1E5oQ9U2u7O65z8tAd6Qx UPdt/p7gUkhwtmgbl7/S/blijzpqfjaor1IKuVTn2C cT1XsodZFHiwcs8cldXH8ytYNq3JH7c345rbsIyvY6PiAoXFLgXWCyaJxCzZOBGuMsCAVMf1yvLivutP G6tpcERxZLFfPCWdKvzkanmE98DEbILq8Pc++QT0mJun8vZ2WkKkiKS/RIae7s0eRzO7CqPgPQ+LTBhy HQDNYru8sQKCQDqr805Ru+kog7V97f//EjWUbjMeqr ABlazff5VtbcwafY0hxjgqbCAhf7EM9EblGDU+buyTNRZxzbm4CicK9jdSXP4TD6Ib7jL1kq8EFRMvfz Ag47K2mYkSym6e3Jng1zofAn2PBqfp6u2WlKovCd8WgUmITcXDsfGG7vBoN9sX54d9uar2kjJL98SaXe MxAObLBJF2lhIIPamOALfmd2/xyZ7uKGHFVlsJd53q JQsXak8R0mBcYNa9KYYu6G5Be+HxWohKn85k1Hq/uxjOfdW8dgUG3yBKeEpXRj/Neftali/Xlt14kzIar1a [file] PwmoRXDZLvFFEH/Katlin+DbPtApC1WZ/foOWLzMW+Ey0pCiCiPOWjADy1ry1k2JDPUNoil4gXtel3qk5H MFSw2Wd8zsaocoY4ZG8xUrlGeSDu7Em6QYxK7RLGxx +pfBilwn6SpwsCxqy7/3xKqs+eassSj4uqiRESbeusjpsAMBAwtDA+wR2xM/sLCLSDLoBnBXxW3BeAAx UG/eRTAZqNHl2P5rA8FQqwMiuT1Dp/nqaH7++1wKIp0eTINa/v+Eoa5bV9nCgrheCaJgjaSCho2QKrv6 J9B72tdJtMwrSfTaumSxafWtBYcucf8GmUu1pRGHPT KaY2fvklCWRjN1kO2UyyM7ob2mo+8+oJHbfRM5CwkMc6K97Xy3vLNabOLRHhsKOwSIJiE/gtbi4NLdgy 0O5mAx4lzKpg/xIiY73QvO4YfBDWeTbq7Tdsxtdt8DLNkKJwrpa4tNPYhT3OXGyTGRRpD8ozOfCB3tP1 EzvfudS8/WsRR2z7C5e0j4HEdiNA5Bag3sIat12Bxf vofDvIsct2s8z5FLxpd1cNZLj3U8R3KnaKOoaJTW6O3tWavgOVvZ9uHGnDaPxoB6JJeaCGXJSCyziKKC yAeqRkHvoER6kHl6CgG2cM6VtlCpeG9lyeXqp0LrQOOypAjS3Fzu9wk8O1EvjViv8j6tLJ0I70QnAF2+ JJRGYY/+/IYHLASXjMZs0aZVw3CVtffForJvsjy/zw DsrIspLkTKdVne8lyKFavqSYIdVhIxpj+HX3XfMn69Vs5lHC5hyXXHQj+3Z3LQUfdzNQrBnX7Vzslqc+ qTJM0G68fRfyTQ/2SuttjJmM78Qo4RlF7ihFCfjFgdJZOJQCUcX4QuErLJdDOKFaJ9/fMeTr9AROpsKW ggyjb3JRRxMrU+/KhMvWobLrgW4eRSU9QPvYuZtCm8 W88yZsO49N+ZdxhJR6vpf2AOJ17EDoAMFHs7G+qpLm1WT+PuTlXXpp9OpQ8tUkl/LFt0wOnLQiyDNcDo dzhrTiZi78W7r9AhdDm7D2kmqs/n0uxow79oxgq/AnJigZfel28/Valentín+RGNwyh6q+IRFm9xEAebY1omw [file] PJFzkI7VAnZWVjrZLoPND0iH8xPVit/S6qLcXKxHwRIbXGQIPk8pkrEGz8WZCI4kh8Ps9tRxG+chiller technician/Vbq [file] /mDFPjkao4m487vUSJf/kilZ8um9ap9aAlYArC4Y40S65DUKwNxp8kjB/literature professor+JujnbI6vqDdmg+abl64 [file] yoSfRsw0tcHzk6l9+NFFeG13u+M5nR/ykkuiLbG/PAINTER DRUM [file] integrity [file] M63J2ODpt0CsAzar/José Miguel+9mM/fe+3+G1Y1CclXY9bTgoIncbGVXNFXupPEP8klbzVMkLjonp4o1/Wzls zJHJvomPfFH1jAdkAKS6K7cUKgCZ4TvXUAdKZ7Ghik EjdlCt/8wQB616+78fzFbNgsek9LI2lyQT1moOjaMCldCxJ55Evgg/Iqrt/ypBVB7tRxELFMDvrhqnh8 fk+JblH8dZyECfGIo6zG3rZIMc1ApUAEj85dSi2LJCg7lfxekq0Afz7kwgTumUY9RQJ6hxfLXMVDoT+b lMezJ2F1A/pb7SdAjwAOSvLcKdLshIkDhay/baguiW Oy6zamU1WCBvGxj5A0V/eQkVN3vgrMpiZFw3CwKwql2eblOh3g0bNsW62M3HlDaJqHk7rly+NGnXNeMS kaiMfoAYxrXdrBdFMUdMB03rDa4UKQSXph1Wnes5YjH0TRIfuerulf28Doghsh/7RjT6I5Zn4lz1Zpli +kViqMx36+xjoMOo3V4ZXgfDWFd46bzEG+Fcj73G6/ QCpfxx8ozTqOtlLi60i0Rw/olVPi7t9JyBkeBRDu4eoZDFZX0cqgx1cI8oiwfWQCvNKUGJSjVuV8+UZD /José/DREVzuBBqX4Fd+LD5DaXcXASCxhPIjyGAFSoYXW8y76Hii0FsCwTOz3R/R2JWdUbpZJCAspF4zN [file] J47l+Snf+wBmW0sOI+chiller technician/IKtgP1j3kePVQyr3OxnPwBjK3yUDMCnKUefp6YZrKk0KjoxbDMu6Qsjofwn [file] OuZ4UNd1piBHEazZr2tA3M9XzyyBACVH8ip+csDiTBRZRFpw9vlWoR9zUv+3sfBM09uUmyjtccW89+weasand trimmer [file] feed miller+zC6SD3LpJLyrgJXhrKRdGE+NOc9aJzxFH2dV2H [file] pAxl8QtzFFqfcL62nutm4w5uvmaK0N+HlUT2Ix/health claims examiner [file] g+xGkyTfy9BBF9jQsXgRc8fydyyzUald7sCch TLhevH/B0KC8QjKM8ISGKVKoof799A6Mf0KzE1rsGn+3d0ZCK8My2VK0rH9PDtknOY+/IaT9PXBsPiW/ ONXpkSFMzMEz54qKhQlNct05/JcedA5S/VdQ+9zYsj3JyC/5p62E9Cxi4PUy9FHnecfbSjN1nDHz/3e/ RKLTMYzYBCAfpLDyUBXEX87O1fadt/04Ku95K+kF0k A2NVSgXSfgEE1+1Hw+4M271BgcuzrpqkjYcykbxZdyAJg1Xh1d2kIYAGh5Orw773p8j3Uhgb80r6m1vB UyuvfaJ8fp212MaIHlnDJiV4zOukt4hvVUP+rk57xWkg1jN5fUmAlC32O1tC0OxY/z9ieiEy0oJbkYEU Jacob+psiRcLhQplWJzsBXlYi94QvU5u3pL7QEdKBmNiA a76eWsUAEQ1voCIsnu6j927jmXSLH6B+rknxF+2TAaozK5Clj5hQAeEGIBA8VJdYzjYEyRMsJFe8irm6 4XCHB0b4LFdKdMkBHLSkuC7lHFmyrzRO/RHK2wJ60QbeYSUQ04mPBHNzNwc+rlhvJk8GMTCXWv2jjl/R kYtnpoX7szeu7/ju59i7RRJ3deEOtZt5HJJgWjVN5u TdwqFja5n/BKXCzSPbajpPahkW3gyL7XON/z5kQ1YebHITBbQsEonXcXQ08q5pIlWWbBEoQuSRTgjGkl iw4bpLJ/Z+aUp8z92rjihjRCOllrgOMbTi1zNb8RbGqikT4a3yPTnGJlzcpCu+SuxIt2tjHKWWHhmwUk 35/Dv3XUarm762DOb20Vs68a07yRvsG1Goea0kuSS3 [file] Q4aeFdugHkZVtks5vSJ528q4V9a+Senior Games Technician+MzCfyC9SmoxHhiEt9up4p/2M7xTSgktxFBFhmUVs8Uh3Ll6QN [file] owHbpas7wVlMDH+Chaka+5TLSZz7nfH+LLNL8uZqVATBy2TTQeNsTo2rfShTGn+WMJs/IHocU6DRTqtbQJ EvtpKFhjaxIy4G078Qe/N748+CdN7erMZQhwrmOijZ AdAB2CHB0oz4ZaKYK8AMXqh3XkIDu2E9sgjnk7yEFcYO7+j3JkCKViOEtaBnCvBoHaPVMcRdgcYZJzXH UzyLraZO1vXPKQyjaGAPtsytRkfRYwVX6INX4bx0LzATS1DIPxn8AyHRg8B6ZxrUIxowBmFikbgMTAQL NoXMReCPRsG6IoHIbbC2iJMDh1KQJrYpY0UlMJZVrD MyF0ESQnITRnSmsNSyy2TEIDMxw+CIt6WyU1FQd7JPS7UUOZVHTEOKP0AaCcYNP4XPW2WTHcOh5jQ7Qt a3RpVBIbBKZeQC9ymjXkYYKtZt4JaFryYUR3N8J1vBLpT8eBWTScJbXlOXJ5GQLsPh5hvFFkRT1LYkey D7ChDYWuINLVRCHJBau+HIPOcRMqG6MqQegWKr+DyH PaQJLjoQ+JPWseU7sFTX1N4NZFDxeU1kTQrzkjPLXQKHC5pX5vNXodeqBrgLJqPO4SLuGfCY3via3YUw M2WQR0xDUoJn1KEGhpWZs6ALeqGLPLUt== ID Date Data Source [id number] 05/16/2020 08:57:52 AM EDT [facility] Current Problems: PERSONAL HISTORY OF TH ROMBOPHLEBITIS (ICD-V12.52) (ICD10- Z86.72)ROUTINE GENERAL MEDICAL EXAM@HEALTH CARE FACL (ICD-V70.0) (ICD10- Z00.00)FH LUNG CANCER (ICD-V16.1) (SSD27-M90.1)FH OTHER CANCER (ICD-V16.9) (LFO98-Y94.9)FH STROKE (ICD-V17.1) (AMQ31-K00.3)FH LUNG/RESPIRATORY DISEASE (ICD-V17.6) (YSA98-Z96.6)FH HIGH CHOLESTEROL (ICD-V18.19) (ALF34-M19.49)FH HYPERTENSION (ICD-V17.49) (NEH07-Q26.49)FH HEART DISEASE (ICD-V17.49) (ICD10- Z82.49)FAMILY HISTORY OF ANEMIA (ICD-V18.2) (VYQ42-B49.2)FAMILY HISTORY OF ALCOHOLISM (ICD-V61.41) (DGK85-I88.72)OSTEOPOROSIS (ICD-733.00) (YSU48-M49.0)HY PERTENSION (ICD-401.9) (XAI69-V36)G E R D (ICD-530.81) (NNB80-C54.9)DEPRESSION (ICD-311) (PQY98-M23.9)ANXIETY DISORDER (ICD-300.00) (BDZ10-M17.9)Problem list reviewed during this update.Current Medications: CHLORHEXIDINE GLUCONATE 0.12 % SOLN (CHLORHEXIDINE GLUCONATE) Rinse for 1 minute with 10mL before bed; Route: MOUTH/THROATKLONOPIN 0.5 MG ORAL TABLET (CLONAZEPAM) hsKLONOPIN 1 MG ORAL TABLET (CLONAZEPAM) 1 tidDRISDOL 27310 UNIT ORAL CAPSULE (ERGOCALCIFEROL) 1 tab po weeklyDULCOLAX STOOL SOFTENER 100 MG ORAL CAPSULE (DOCUSATE SODIUM) 1 tab po bid dailyATORVASTATIN CALCIUM 40 MG ORAL TABLET (ATORVASTATIN CALCIUM) 1 tab po at hsPROPYLTHIOURACIL 50 MG ORAL TABLET (PROPYLTHIOURACIL) 1 tab po dailyWARFARIN SODIUM 1 MG ORAL TABLET (WARFARIN SODIUM) 1 tab po with warfarin 2.5mg to equal 3.5 mg dailyWARFARIN SODIUM 2.5 MG ORAL TABLET (WARFARIN SODIUM) 1 tab with 1tab of warfarin 1mg to equal 3.5 mg dailyATENOLOL 25 MG ORAL TABLET (ATENOLOL) 1 tab po dailyMedication list reviewed during this update.Allergy list reviewed during this update.No known allergies. Dental Chart: Procedures:Type - CDT Code - Description B - (D0220) Intraoral, periapical, first radiographic image on Tooth # 15 (Performed by Faiza Fan DMD) B - (D0140) Limited oral evaluation - problem focused on Tooth # 24 (Performed by Faiza Fan DMD) B - (D0230) Intraoral, periapical, each additional radiographic image on Tooth # 24 (Performed by Faiza Fan DMD) Chart Alert:NEEDS MED CLEARANCE prior to any treatmeant . 05/16/2020 AG Chart Notes:arsh (May 16 2020 10:55AM): Additional PPE requirements due to COVID-19 in the dental setting, N95, surgical mask, hair covering, gown and shield.S: CC:"my mouth is killing me, its not the teeth its the gums goinng up into my ear" A year and a half ago got a cleaning and ever since then its been hurting her. Gums bleed. Flosses regularly. Water pick. Requesting pain medication informed pt of policy. O: RMHx Takes Asprin everyday Coumidine . Hyperthyriod, Allergies: Sulfa, Codiene, iodine. Pt states when Taken off Coumidine she gets blood clots and heavy bleeding when injured. ,(-) HPI:a year and a hlaf ago PL:10 BP: 133/66 PA# 15 Taken PA Lower anteriors Taken. Inflammed gums, periodontal disease , generalized Calculus build upA: DDS recommends Scaling, pt needs to have a med clearance before procedure. , DX: Periodontal DiseaseP: Scaling MED CLEARNANCEPharmacy:[facility]oss[facility] Chlorohexidine.Assisted By: JOAN NV: NPE for scalingFaiza Fan DMD by arsh (05/16/2020 10:54 AM): Faiza Fan DMD by arsh (05/16/2020 10:55 AM): Tooth Notes and Watches: Assessment & Plan Medications:CHLORHEXIDINE GLUCONATE 0.12 % SOLNKLONOPIN 0.5 MG ORAL TABLETKLONOPIN 1 MG ORAL TABLETDRISDOL 77193 UNIT ORAL CAPSULEDULCOLAX STOOL SOFTENER 100 MG ORAL CAPSULEATORVASTATIN CALCIUM 40 MG ORAL TABLETPROPYLTHIOURACIL 50 MG ORAL TABLETWARFARIN SODIUM 1 MG ORAL TABLETWARFARIN SODIUM 2.5 MG ORAL TABLETATENOLOL 25 MG ORAL TABLETMedication Changes:New Prescription:CHLORHEXIDINE GLUCONATE 0.12 % SOLN-Rinse for 1 minute with 10mL before bed Qty: 1[Bottle] Refills: 0 Method: ElectronicAllergies:No Known Allergies (updated 05/16/2020) Name Value Range Interpretation Code Description Data Yolette rce(s) Supporting Document(s) ID Date Data Source [id number] 05/15/2020 12:36:00 PM EDT [facility] ([facility] Woman [employer]ANK[employer] TELL[employer] TRADER) Name Value Range Interpretation Code Description Data Yolette rce(s) Supporting Document(s) Urine Culture Result Laboratory test result [facility] ([facility] [employer] TELLER TRADER) <External Comment eCWMed> Laboratory test result [facility] (Parisi Woman [employer]IGN [employer]ANK[employer] TELLER TRADER) FULL REPORT IN LAB NOTES ([facility] and [facility] ). ID Date Data Source [id number] 05/15/2020 12:36:00 PM EDT [facility] ([employer] Woman [employer] TELLER TRADER) Name Value Range Interpretation Code Description Data Yolette rce(s) Supporting Document(s) Appearance, Urine Laboratory test result [facility] (Parisi Woman [employer]EIGN [employer]ANK[employer] TELLER TRADER) Specific [facility] Urine Auto 1.013 1.002-1.035 [facility] (Parisi Woman [employer]EIGN [employer]ANK[employer] TELLER TRADER) PH,Urine 5.0 units 5.0-9.0 [facility] (Parisi Woman O B/BRAIDING OPERATOR) Color, Urine Laboratory test result [facility] NT ([facility]isi Woman [employer] TELLER TRADER) Protein, Urine Auto Laboratory test result [facility] (Parisi Woman [employer]ANK[employer] TELLER TRADER) Ketone, Urine Auto Laboratory test result [facility] (Parisi Woman [employer] TELLER TRADER) Glucose, Urine (Ua) Auto Laboratory test result [facility] (Parisi Woman [employer] TELLER TRADER) Bilirubin, Urine Auto Laboratory test result [facility] (Parisi Woman [employer] TELLER TRADER) Urobilinogen, Urine Auto 0.2 mg/dL 0.0-2.0 [facility] T (Parisi Woman [employer] TELLER TRADER) Nitrite, Urine Auto Laboratory test result [facility] (Parisi Woman [employer]IGN [employer]NOTE TELLER TRADER) Blood, Urine Blood Laboratory test result [facility] (Parisi Woman [employer]EIGN [employer]ANKNOTE TELLER TRADER) Leukocyte Esterase, Urine Auto Laboratory test result [facility] (Parisi Woman [employer]EIGN [employer]ANKNOTE TELLER TRADER) WBC, Urine Auto 1 /HPF 0-3 [facility] (Isak Dean kim [employer]ANK[employer] TELLER TRADER) Squamous Epithelial Cell Ur AU 1 /HPF 0-6 [facility] (Parisi Woman [employer]EIGN BANKNOTE TELLER TRADER) Bacteria, Urine Auto Laboratory test result [facility] (Parisi Woman [employer]EIGN [employer]ANKNOTE TELLER TRADER) RBC, Urine Auto 2 /HPF 0-3 [facility] (Isak alvarez FOREIGN BANKNOTE TELLER TRADER) Mucus, Urine Laboratory test result [facility] NT (Parisi Woman [employer]ANKNOTE TELLER TRADER) Hyaline Cast, Urine Auto 1 /LPF 0-1 [facility] T (Isak Woman FOREIGN BANKNOTE TELLER TRADER) ID Date Data Source [id number] 05/15/2020 12:00:00 PM EDT [facility] (Isak Woman [employer] TELLER TRADER) Name Value Range Interpretation Code Description Data Yolette rce(s) Supporting Document(s) TP Reflex HPV ASCUS Laboratory test result [facility] (Isak Browning [employer] TELLER TRADER) SPECIMEN PART------ A. Vaginal, ThinPrep Pap (Plastic Eye Technician) CYTOLOGY HX-------- Other Information: Hysterectomy FINAL DIAGNOSIS---- INTERPRETATION: Negative for Intraepithelial Lesion or Malignancy. SPECIMEN ADEQUACY:Satisfactory for evaluation. TP Reflex HPV ASCUS Laboratory test result [facility] (Isak Browning [employer]EIGN BANKNOTE TELLER TRADER) ID Date Data Source [id number] 04/09/2020 01:30:00 PM EDT [facility] Name Value Range Interpretation Code Description Data Yolette rce(s) Supporting Document(s) Follow Up [facility] [id number] y [file] /PAINTER DRUM/+hSxY7qOBhOg/7y/EjPmqdg7ALTfBf2S1QAlz/Gtk+/u/aBX5wQss/jCU0ftTm/Bcaio+dxWl/uN ja0guYAYNf23/+DuLYPiar5+3FIQLWF2tyXTdMkwDI rKINO6MEcEbaNDZZGpUmR8GVF36M8X8JYao/uLmJnUqJR9u31jjr6f+9b9cD+8yPZCp2doar3kec89is Xr3Xv9+vI/Wrn+arqcLAmjhRQvCSS30DXpt35o0VMf2ifEqOcZUjhTyzADLP5hZVvLOrxP76dzTvvlc4 V5gqdNdtbuA776J3Vn5JpEqeQydgpSmu1M8ZmvQP3T IPFzjXn1E0+RK9ZoQNnqrJM7AwybhGeJ8Tjw08jKW4cR9wlwKDgjDsB42ltA7zMcpT+AJpkRxWZOjBBO zo24q5vZUmoUM7M3iz5I6hf/TAyao5FP1gzUkvDXfahH3XiBPBQWPU2SmzK2PpWmFs0iS98gTi59le75 lp+hP6t1p8TRtshUVZom4uT2oT15Z/KadkUZeW6wVJ 6D+XFxaSc1/Q1bxye51ZQ+g+NTpy+CSaV5eezG+IWerEYX+n1YHUNekgWKv/SM0k+xsuhbnN/SESg+D+ //XxxJjgjSXBK4pAXNg5k8L02awc15MDIyjyzrcBnVghdjw3GXqJ345OswOwiM6E1itZUc1tm7to2XpM 37jGNpNmfmhWx+BT3Bsb6LhPLdELHBGYbnIPBbT9DN TAOwfMvX7A2OuVDmPfhc4spg9x2//IfsoL//K6ZCCz5435vt4xvlx7UzLAzpWW+xMhCeFrfwg3k7pq17 ML0G0g1KV19Hmotm1CB3lls3z5gMuABKnBlWvnElfkITT6sq2gpFlpsv/FNWjHfnbfhKy1EeDRgkkL57 mwxeSM2t2woqfJR7tCksGAPwCUJjknHO+hTDr3lApL O88QB3kz37VWNo+klVfc4r/xiipCQSDfP5ssC3YsK1y6uGKnWjX9yr4Xo4AfK6+JyI+Jxw8l6oy2+jultio nnwdRw+wC21DorkwApxyXLBYcsp3ol6zX0yr6wry1bUiEJAHpRVVvbNs9E9j3N7t+QrpqnOS+cqt8C5f UrF8rnXKcsNPwHrBDrsJ8VLeuBD1SU92AeuOMzY6yE tT+9LIniOCZkeuYIN15UD1RIjTPD7URENuigR4ddkmJsFgsnJS65ov4IEvE3IIsnfFL0VLnD5wuRhYfd wa5ndKnOVKnxid19sNH7UuT990yj0cRC9cqzqlVifUQEdeLn9JxOuzw+PMcN36ue0NHlg6FxEHzcdMOI NBip6zlYDntWxUwatAxfUDi1y0xSpr3xNiYoYM7yrs abtgAfkcjNrK/KUB9WlYe7dlxGV15N0j2KjI9kRnqP69xyuhO2tt3fGzhZ2bunfLa+6ci2pyzA6AwbGC 1eRNIk3EIaY3NwgPJdfh0Kf+dBpph647rHy2uRLbBj/MRZtJliEOGYZVrgvA2vSsZK/Wfx7/qQDspP4w JSxS2qacfAieui65cislwq9Xx8G4ZjpQprefuq584h [file] jZJnwzEeDrWZaMVUXZQM+Iu3LcSsrJa3T6SIt9Lhl/9hadK5z5cFn+h3s0kXtI3m+sJzojtjXO63b/MEAT MARKET MANAGER [file] g4A0Fdl7TuLhQy1kVNJEWIHywK3I7bER7cquuJ+entry level manager Ix4e9QSAwRV74K1HcCgbdVYfF4rJD5nwK/Y5S9mJoeSIj2ClHa8BKSiwDKit0a3QigA9qp/Gb14WEBsx 1EbCUWaV0b3uidZl/BvbC75LB9y5BOc2ADzetr+7NvAx8w+hMvuJ0eibfJzm6w+X3O/aSAY5hUsYbzPj rDxW4GIWaq7GcSs4/Tujooe2cMX9K0Ar6BKp/T1gMt zu3S8eqPEg3vK/od2/+u+ayFFoRIUiV66QtiYVXcR7DhwGlizj1SWmsqGq72dO5ygQCEMJkMx4Qgcv+R ZsiDqolxwXDegPtXF6df2SStcyCZt+OBVGNQAJDW5HpiuXZlR7AZf6705M+1Si5B9RTwmxsAgGpRzyA2 FAsV6P9fYbE+bVqmXPwfkp8Qe8EOtzv1UvIUIAdwkU NLjU4QAgeaXBxiZrf+gCo0JQUmgftCEXlNlfTz744tH8vxN1NhnxxX1b0VxgqwnmwnYEA7kPiTurgiN1 Pdy5mTwNBEI518JU2OwiCAaJsO+PKDCTCbWkb9337N4deRY/nd+RU9U7ybi7r567T3IAf1m4Fh32IICv /QRcSV7JztaHhMK/IZBl6pBg//ESVg1FkR4sYbzApw A5kGuTvC73CKyJ7+9S0uUz8TEamB5VXemfLop5anWsjMcZrGzTvX5ufZ4FxcsdhfVAQtzt4LMaIMoPh/ lDSnAWSFyhiye/I7hPAtm2M99WoeD1RN8jwmDSweuP8P5BqepcEl4GR5HHhBJik/04/27OfMxfNEOcngT [file] FqjR9wV8up7TB6Zlq/YfpaKW3vaE09tV5rW0S6++chiller technician [file] uXjxvOKMUQRcNBm7yZ9mbzwaOagAjnAT0Qflu9kj8OU8HSxshgQWyQ++j4/E+MEAT MARKET MANAGER/Q6xYr0Nmi6GLnjng [file] P+Valentín+k0clJ4huBsxoPcAsI67+n6fU3Vd9MGOy56GJ [file] tRgWRHN5bZoC/Net Mender/QX3Y7muA6fJS3A8NETRzrDgtnizixT5Zm74r5XSntdARwMLjvZU4UDEgiQ6aUOd [file] 8gvqtFB19fceig8ZwEN/BmajibLOawmsIjxkiHuWKv pOQ2jMtL5a2mgYdSrP5IO7tiyXbx6/szikxkk8hXk/607YwNlecNSVwHPkiNmj/dh/pyVYfoOIZRCedg DivyyooDwdXi/zgbhbuS6vKqxvp7QkUq0B87apJP7lDf7lAaGgJ30ol3r8FSbLAgVVkf+wP9XcyadMQ4 msU2irH0ArH8YhWnV0TQivWD4jkbA7t+D1O2aftxZS qv0YcfnkQ5zjOExar3C4zw1tBUYii1d2ccynKUN47ksBi69Edg4hv/bTSABc/CKOh0ar2fLdF9NtKiO6 5R84YVnp98JdUd6HbalyL0OUaLJM5LcIb82W/qREmhj4x4QfyNYx/YQ2TikacVXQLC7H3Moj5NglWpWF VkB7x5Aipp8YsP51IB+C1NryjWy1f+agH+MaILv725 qCcuvu/4wq19IvXRoB3lnAFXpHeP76ouw7kwu//8yWhzdsz/vHwjHEuRV91B0XdfBWBlzohXgajdG4x/ Xpu+5/8jRi8s043X8nrCL9HFGwYEfInLCAg7MLOSWqWs/bMxhcAug5fuyc7zkQNL1OjYuIljaSrdtfx4 pqe5ZSprp7+Fsk30vrKu9i/iazwr0ct0QCHJZSoAtk JZvhIuckaEGABu1LPqUHVog9vvlXQz3E/Qjm1kxv/e5hyp/Rbe21el8kpgM+RMqGR3w4cqC2T0+ufrvH pH16OdPJ5A1l7MFC+x4xEjz6XR6wHlkmSNYVXJG6MOjEcRwr3SvqYPgmxYyCtkM1EE26bvs2mVPyixT9 A091zaeFlBLAl1tPPDhLODiMCyYn2B7706fIcyJVd2 gwMPV5oMrZAbPaQ2o8+jlAY2JVfAxNH5YVMfH8H4eWyIS9wzz6ZkPnX+JbYhTbu9d5nAceUeimpM9xPJ bQDZJZdZcJEjii0O+oJiFyyawbioSEtE26jI/FkOdBHb3viCESTaxyrhEHa7sc/O5HWJ3dxoKErX3Cws L/5yeFcIOFEO6ta/y0n129EON/LVnxGibLGhx [file] AuM5ZhR7ipAhyNnneMOIiL6d/lszmB+district attorney/kLjGc1eyFqdNY6ztbkfbtBjVhpT49To/jD2Nm+yWm+VR [file] QBYgI7IU233yhBAd9A/kE5cMz0f4TXrp+TJDqCxg4iJyhBt1b//nq8P95v9WsHMzDPt+qoLtu5Mcn/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 technician [file] mipurEJjZJCsWily+K0y6QyAURUl1Ij4u6yL/9NJ/87LWE/+1VW1uDORjdvk9w86KTj0rV1eNXG9F McLetro1qzhhaq06Vm87HM5riMHJi+cacWvDpNe4K+dYkdvJHopcMR7S+BB/0KGiQD6paOXBs9gp8ZNY Senior Games Technician+DHx0bym8ec8xkRWAAggfprDjNRQHs/pAHdhG3uT [file] Senior Games Technician/u18eSoh1WKdA7OC/hjci2QEbargjYOK8/nKxrSI [file] VustkZ6O/lcN+T2i+ul+GM7vn0k6ZHcfCTNWng+architectural representative IUYqPF4IrpXe1vd7diw7rxHYH4dggty85l//+G/NM4K03JMcrS6LtRfx6zMZYucE6iFa2dp0f0+lgqKr Xpqix3uiGUMg8YptyMess5FpT/qmwwLTNRY1dOOQzFeRFMm2OsmqrqT6QD7hjkzkO4x0/PH0f9iWLFE7 DgIihiYo/GEd81+hmu/fYw/MhJ9v33WDwaZsGMEhOI SiUvOXktH3Q8/qFOZ/EnlWi8BomS/ZzFyz1wg4vo87eZVvbivsf+ShH/HnbnrlsPtSok1td6j0kWSiQa /9Aro7cykapKn6c3E8d2Umw+aWMWsByRna/Sqn7BtmXfsu6K27tpI4m31K1bAF7WWpR3ljDjrbFol8d0 r6NcRJY02b0uicPh4C8HGT7LbS0DDQlT+kv7803liN Yqv/jTn2x4IBU+7Ev3028Z55f0ZD4fmT227N6+LB9x7+lR87tkMt6Hvejm7yb91WIhzVdnXdeNz0hXro beXqysChEFWzicTUAhYU6DjrtXMaoyQsphsQqLRDPcGgq4vaOrqO34ZUIhGy115ADAJfk91F1zcAQBsq ia6l/nLeNiKfiyg5c8j/VTO/rPj7mCwDjXKnlSH5MF OAsnj/B02KiBreSrS8uplnOQzMm2CcbVtA2Y9HCs192Lu39eAD3SzKZvvIBd18Du/PYNNRQgi8xa5GHm w2+oyxTe6s5gk9j6r8snUMkyabDF7dsv/nOpyICuHblF9f91AqmAPHbSmyMntdXHcuYH19nG5esWqCXi vG6wrUAtHmltSxisvmrhigtdCxlAiy8eKKPZFqFYOc pt6ob3QRa7MJIILoCcmLvzW3jv3lk1h9oXpRQQSkJagG/gracie/ra17gEvdaixkPom6yMyFLEHK4XaRiKK [file] BzwONRHjdb/iU5//GtEkG9A8+TyvLqmiDl10bfi [file] training representative+7hbZkArzHSb3bAGubgBwbEv0Xh9ipYIvGNrlO0GKT4DeBUmw6uKJlPUP/4q9VOeBys5N97a9XJeb [file] UzOzugMSnl9p28rG8UfupHmdIzS7+xbVHYlKw/drVA2H+M4XHlg3XmNLxz5x6IhWF0O2GpbbSy4cM+weasand trimmer [file] Mary [file] A8ROhN/qFxxBFAZCo3Z7imyfPB4WmMiq+[place]+JKWrW7dlaNCCAQkGa5xeAwxcIo1FZhyZy83WWcx+MKh [file] 5jSuFyE7mhKK7E6axb/vzJ0/7dfo5yxcaqeMlD/[place] cgp09fe9L0n9ohDHV1v8g45mxcdad510bLqbvVrGlgcNKza53G+YEEXMsR4tX3ZJFVGtE12k1JV6/f3d Fp4hzA9Ow7Uyf6UoUlxlfLAq74w/OxJEOcR0FmcTl3UkFsIBCQ0cMYkxEXE5fK0p1zb9I7qvf0ICjPk4 AUS2yo8mpcMbRsfSaK1JSmwOKYrhacRIn/Xb8pWa6n 6h9rkExY4zmM5oWe4ehgOgasUqdIaXpAuuP66waqvRPSF90zn1jNJyrAURYipQ98oHV1+AVt8oluO6jz NvX64DpyIC86yABVVy7OhiXs/TbW9IXme5VxybO6R7y4U6bxvwJN/MDyIOHpah/u6itghi2+P7SQag0j 1SsWLJ03CXFeHpQHeusvbmsKi5WLCEvoV/6kYhxUif zRBcuV3beTQtM9Ya4taWDdLtz4u+dWyZricsIzFTImWJ+Ob9KVt2NcsBweHtMJ4DCn+rFadjFgqSp6B5 LIu5VGST4QVLi3WPXiS3RMhtvZ3NMIVY4F+M7HZL1u9Jq9F4sGq+hos+TjAXehQZmyzE/YDZTht5gTIs nfGDhm6uakThEJmdM/0YSwPqC2qft1ZywoZI3w0G4P 0ZE+4XjKOtOkxCdxZz66gh4cfT4DvO4XzDSvZzrc0/8ruLMJ0yepWIVvtAzdyPMRWLckRW0v3KS7UsPV 5ZbcS66mKSJEHYNEnWCQi9ItQi15z3tB0ro3sVFFv3w223mrRlXOBjZiOsPhWbhSPp9uhvJdgsSjsU2h qnSPY73isNPNQY9idTYe8cQUjlpeJIyJgy7353UqKn bLT/UARobTKWhGp0bUTJd8usBetOhbaO1JYevUUsGcr3p3EwrRpIFv7+Jjn3Mrbx29GBPEkb4dmfjyLp assignment manager/bVOXE0T3m315SFxOOPD5CmgkgpSAxxDITSjMbKHyjJ3wSRXl1W065iM8dsATt1SH5GH/nlFJdCwbq [file] M3jqBoOEdmQOG7KapuABotAPAOIl== Procedure Social History Code Duration Value Status Description Data Source(s ) Smoking 02/13/2021 12:00:00 AM EDT Patient is a former smoker completed Patient is a former smoker [facility], ) Alcohol intake 01/16/2021 12:00:00 AM EDT Current non-d mike of alcohol (finding) completed Current non-drinker of alcohol (finding) [facility] Smoking 12/19/2020 09:41:25 AM EDT Ex-smoker (finding) [facility] ed Ex-smoker (finding) [facility] (Brandon Duran MD [facility]) Smoking 08/15/2020 12:00:00 AM EST Patient is a former smoker completed Patient is a former smoker [facility]) Smoking 05/15/2020 12:00:00 AM EDT Patient is a former smoker completed Patient is a former smoker [facility] ([facility] [employer]) Smoking 05/03/2020 12:00:00 AM EDT Patient has never smoked co mpleted Patient has never smoked [facility] ([facility], [facility]) Alcohol intake 04/17/2020 12:00:00 AM EDT No completed [facility] Smoking 04/17/2020 12:00:00 AM EDT Former smoker completed Former smoker [facility] Vital Signs ID Date Data Source UNK Name Value Range Interpretation Code Description Data Source(s) Body height 63.7 [in_i] 63.7 [in_i] [facility] ([facility]) 5'3.70" Systolic blood pressure 124 mm[Hg] 124 mm[Hg] M [facility]ENT ([facility]) Diastolic blood pressure 68 mm[Hg] 68 mm[Hg] [facility] ([facility]) Body weight 156.00 [lb_av] 156.00 [lb_av] MEDEN T ([facility]) Body mass index (BMI) [Ratio] 27.0 kg/m2 27.0 k g/m2 [facility] ([facility]) Heart rate 82 /min 82 /min [facility] ([facility]) Respiratory rate 18 /min 18 /min [facility] ( [facility]) Body temperature 98.7 [degF] 98.7 [degF] [facility] ([facility]) Oxygen saturation in Arterial blood by Pulse oximetry 97 % 97 % [facility] ([facility]) [place] body weight 115 [lb_av] 115 [lb_av] MED[facility] T ([facility]) Body height 63.7 [in_i] 63.7 [in_i] [facility] ([facility]) 5'3.70" Systolic blood pressure 138 mm[Hg] 138 mm[Hg] M EDENT ([facility]) Heart rate 86 /min 86 /min [facility] ([facility]) Body temperature 98.0 [degF] 98.0 [degF] [facility] ([facility]) Diastolic blood pressure 76 mm[Hg] 76 mm[Hg] [facility] ([facility]) Respiratory rate 20 /min 20 /min [facility] ( [facility]) Oxygen saturation in Arterial blood by Pulse oximetry 97 % 97 % [facility] ([facility]) [place] body weight 115 [lb_av] 115 [lb_av] MEDEN T ([facility]) Systolic blood pressure 138 mm[Hg] 138 mm[Hg] M EDENT ([facility]) Diastolic blood pressure 76 mm[Hg] 76 mm[Hg] [facility] ([facility]) Body height 63.7 [in_i] 63.7 [in_i] [facility] ([facility]) 5'3.70" Body temperature 98.4 [degF] 98.4 [degF] [facility] ([facility]) Oxygen saturation in Arterial blood by Pulse oximetry 97 % 97 % [facility] ([facility]) Respiratory rate 18 /min 18 /min [facility] ( [facility]) Body weight 153.38 [lb_av] 153.38 [lb_av] MEDEN T ([facility]) Body mass index (BMI) [Ratio] 26.6 kg/m2 26.6 k g/m2 [facility] ([facility]) [place] body weight 115 [lb_av] 115 [lb_av] MED[facility] T ([facility]) Heart rate 82 /min 82 /min [facility] ([facility]) Respiratory rate 18 /min 18 /min [facility] ( [facility]) Heart rate 84 /min 84 /min [facility] ([facility]) Body temperature 98.4 [degF] 98.4 [degF] [facility] ([facility]) Oxygen saturation in Arterial blood by Pulse oximetry 98 % 98 % [facility] ([facility]) [place] body weight 115 [lb_av] 115 [lb_av] MEDEN T ([facility]) Systolic blood pressure 128 mm[Hg] 128 mm[Hg] M EDENT ([facility]) Diastolic blood pressure 78 mm[Hg] 78 mm[Hg] [facility] ([facility]) Body height 63.7 [in_i] 63.7 [in_i] [facility] ([facility]) 5'3.70" Body weight 152.38 [lb_av] 152.38 [lb_av] MEDEN T ([facility]) Body mass index (BMI) [Ratio] 26.4 kg/m2 26.4 k g/m2 [facility] ([facility]) Systolic blood pressure 140 mm[Hg] 140 mm[Hg] [facility] ([facility]) Body height 63.7 [in_i] 63.7 [in_i] [facility] ([facility]) 5'3.70" Diastolic blood pressure 78 mm[Hg] 78 mm[Hg] [facility] ([facility]) Body weight 149.12 [lb_av] 149.12 [lb_av] MED[facility] T ([facility]) Heart rate 72 /min 72 /min [facility] ([facility]) Oxygen saturation in Arterial blood by Pulse oximetry 98 % 98 % [facility]) Body temperature 97.6 [degF] 97.6 [degF] [facility] ([facility]) Body mass index (BMI) [Ratio] 25.8 kg/m2 25.8 k g/m2 [facility] ([facility]) [place] body weight 115 [lb_av] 115 [lb_av] MED[facility] T ([facility]) Respiratory rate 16 /min 16 /min [facility] ( [facility]) Body weight 151.25 [lb_av] 151.25 [lb_av] [facility] T ([facility]) Systolic blood pressure 120 mm[Hg] 120 mm[Hg] [facility] ([facility]) Body mass index (BMI) [Ratio] 26.2 kg/m2 26.2 k g/m2 [facility] ([facility]) Heart rate 62 /min 62 /min [facility] ([facility]) Respiratory rate 14 /min 14 /min [facility] ( [facility]) Body temperature 97.8 [degF] 97.8 [degF] [facility] ([facility]) Oxygen saturation in Arterial blood by Pulse oximetry 98 % 98 % [facility] ([facility]) [place] body weight 115 [lb_av] 115 [lb_av] MEDEN T ([facility]) Diastolic blood pressure 68 mm[Hg] 68 mm[Hg] [facility] ([facility]) Body height 63.7 [in_i] 63.7 [in_i] [facility] ([facility]) 5'3.70" Systolic blood pressure 122 mm[Hg] 122 mm[Hg] [facility] Diastolic blood pressure 60 mm[Hg] 60 mm[Hg] [facility] ([facility] ) Body height 64 [in_i] 64 [in_i] [facility] ([facility]) 5'4" Body weight 151.19 [lb_av] 151.19 [lb_av] MEDEN T ([facility]) Body mass index (BMI) [Ratio] 25.9 kg/m2 25.9 k g/m2 [facility]) [place] body weight 120 [lb_av] 120 [lb_av] MED[facility] T ([facility], ) Oxygen saturation in Arterial blood by Pulse oximetry 96 % 96 % [facility] ([facility], ) Room Air Body height 64 [in_i] 64 [in_i] [facility] ([facility], ) 5'4" Systolic blood pressure 110 mm[Hg] 110 mm[Hg] [facility] ([facility], ) Diastolic blood pressure 70 mm[Hg] 70 mm[Hg] [facility] ([facility], ) Heart rate 71 /min 71 /min [facility] ([facility], ) [place] body weight 120 [lb_av] 120 [lb_av] MED[facility] T ([facility], ) Systolic blood pressure 126 mm[Hg] 126 mm[Hg] [facility] ([facility], ) Body weight 68.947 kg 68.947 kg [facility] ([facility], ) Body surface area Derived from formula 1.74 m2 1.74 m2 [facility] ([facility], ) Diastolic blood pressure 70 mm[Hg] 70 mm[Hg] [facility] ([facility], ) Heart rate 78 /min 78 /min [facility] ([facility]) Oxygen saturation in Arterial blood by Pulse oximetry 95 % 95 % [facility] ([facility]) Body height 64 [in_i] 64 [in_i] [facility] ([facility]) 5'4" Body weight 152.00 [lb_av] 152.00 [lb_av] MEDEN T ([facility]) Body mass index (BMI) [Ratio] 26.1 kg/m2 26.1 k g/m2 [facility] ([facility]) Oxygen saturation in Arterial blood by Pulse oximetry 95 % 95 % [facility] ([facility]) Body height 64 [in_i] 64 [in_i] [facility] ([facility]) 5'4" Body weight 152.00 [lb_av] 152.00 [lb_av] [facility] Body mass index (BMI) [Ratio] 26.1 kg/m2 26.1 k g/m2 [facility] ([facility]) [place] body weight 120 [lb_av] 120 [lb_av] [facility] Body weight 68.947 kg 68.947 kg [facility] ([facility]) Body surface area Derived from formula 1.74 m2 1.74 m2 [facility] ([facility]) Systolic blood pressure 128 mm[Hg] 128 mm[Hg] [facility] Diastolic blood pressure 80 mm[Hg] 80 mm[Hg] [facility] Body mass index (BMI) [Ratio] 26.09 kg/m2 26.09 kg/m2 [facility] Heart rate 77 /min 77 /min [facility] Body height 162.6 cm 162.6 cm [facility] Oxygen saturation in Arterial blood by Pulse oximetry 100 % 100 % [facility] Body weight 68.947 kg 68.947 kg [facility] Systolic blood pressure 126 mm[Hg] 126 mm[Hg] Lilibeth MONTILLA ([facility]) Diastolic blood pressure 72 mm[Hg] 72 mm[Hg] [facility] ([facility]) Body height 63.7 [in_i] 63.7 [in_i] [facility] ([facility]) 5'3.70" Body weight 151.12 [lb_av] 151.12 [lb_av] MEDEN T ([facility]) Body mass index (BMI) [Ratio] 26.2 kg/m2 26.2 k g/m2 [facility] ([facility]) Heart rate 81 /min 81 /min [facility] ([facility]) Respiratory rate 18 /min 18 /min [facility] ( [facility]) Body temperature 97.9 [degF] 97.9 [degF] [facility] ([facility]) Oxygen saturation in Arterial blood by Pulse oximetry 96 % 96 % [facility] ([facility]) [place] body weight 115 [lb_av] 115 [lb_av] MED[facility] T ([facility]) Respiratory rate 18 /min 18 /min [facility] ( [facility]) Diastolic blood pressure 68 mm[Hg] 68 mm[Hg] [facility] ([facility]) Body mass index (BMI) [Ratio] 25.8 kg/m2 25.8 k g/m2 MEDENT ([facility]) Systolic blood pressure 118 mm[Hg] 118 mm[Hg] M EDENT ([facility]) Body height 63.7 [in_i] 63.7 [in_i] MEDENT ([facility]) 5'3.70" Body weight 149.12 [lb_av] 149.12 [lb_av] MEDEN T ([facility]) Heart rate 86 /min 86 /min MEDENT ([facility]) Body temperature 98.6 [degF] 98.6 [degF] MEDENT ([facility]) Oxygen saturation in Arterial blood by Pulse oximetry 95 % 95 % MEDENT ([facility]) [place] body weight 115 [lb_av] 115 [lb_av] MEDEN T ([facility]) Diastolic blood pressure 78 mm[Hg] 78 mm[Hg] MEDENT ([facility]) Oxygen saturation in Arterial blood by Pulse oximetry 96 % 96 % MEDENT ([facility]) Body height 63.7 [in_i] 63.7 [in_i] MEDENT ([facility]) 5'3.70" Body weight 151.38 [lb_av] 151.38 [lb_av] MEDEN T ([facility]) Body mass index (BMI) [Ratio] 26.2 kg/m2 26.2 k g/m2 MEDENT ([facility]) Heart rate 87 /min 87 /min MEDENT ([facility]) Respiratory rate 20 /min 20 /min MEDENT ( [facility]) Systolic blood pressure 132 mm[Hg] 132 mm[Hg] M EDENT ([facility]) Body temperature 98.1 [degF] 98.1 [degF] MEDENT ([facility]) [place] body weight 115 [lb_av] 115 [lb_av] MEDEN T ([facility]) Body weight 149 [lb_av] 149 [lb_av] eCW1 ([facility]) Body height 64 [in_i] 64 [in_i] eCW1 ([facility]) Body mass index (BMI) [Ratio] 25.57 kg/m2 25.57 kg/m2 W1 ([facility]) Heart rate 79 /min 79 /min eCW1 ([facility]) Respiratory rate 18 /min 18 /min eCW1 (Count includes the [facility]) Body temperature 98.5 [degF] 98.5 [degF] eCW1 ( [facility]) Systolic blood pressure 146 mm[Hg] 146 mm[Hg] e CW1 ([facility]) Diastolic blood pressure 65 mm[Hg] 65 mm[Hg] eCW1 ([facility]) Body weight 149.2 [lb_av] 149.2 [lb_av] eCW1 ([facility]) Body height 64 [in_i] 64 [in_i] eCW1 ([facility]) Body mass index (BMI) [Ratio] 25.61 kg/m2 25.61 kg/m2 eCW1 ([facility]) Heart rate 71 /min 71 /min eCW1 ([facility] hospital) Respiratory rate 17 /min 17 /min eCW1 (Count includes the [facility]) Body temperature 97.8 [degF] 97.8 [degF] eCW1 ( [facility]) Systolic blood pressure 154 mm[Hg] 154 mm[Hg] e CW1 ([facility]) Diastolic blood pressure 82 mm[Hg] 82 mm[Hg] eCW1 ([facility]) Body weight 153 [lb_av] 153 [lb_av] eCW1 ([facility]) Body height 64 [in_i] 64 [in_i] eCW1 ([facility]) Body mass index (BMI) [Ratio] 26.26 kg/m2 26.26 kg/m2 eCW1 ([facility]) Body weight 153 [lb_av] 153 [lb_av] eCW1 ([facility]) Body height 64 [in_i] 64 [in_i] eCW1 ([facility]) Body mass index (BMI) [Ratio] 26.26 kg/m2 26.26 kg/m2 eCW1 ([facility]) Body weight 153 [lb_av] 153 [lb_av] eCW1 ([facility]) Body height 64 [in_i] 64 [in_i] eCW1 ([facility]) Body mass index (BMI) [Ratio] 26.26 kg/m2 26.26 kg/m2 W1 ([facility]) Body temperature 99 [degF] 99 [degF] eCW1 (Count includes the [facility]) [place] body weight 115 [lb_av] 115 [lb_av] MEDEN T ([facility]) Systolic blood pressure 140 mm[Hg] 140 mm[Hg] M EDENT ([facility]) Diastolic blood pressure 84 mm[Hg] 84 mm[Hg] MEDENT ([facility]) Body height 63.7 [in_i] 63.7 [in_i] MEDENT ([facility]) 5'3.70" Body mass index (BMI) [Ratio] 26.2 kg/m2 26.2 k g/m2 MEDENT ([facility]) Heart rate 77 /min 77 /min MEDENT ([facility]) Oxygen saturation in Arterial blood by Pulse oximetry 95 % 95 % MEDENT ([facility]) Body weight 151.25 [lb_av] 151.25 [lb_av] MEDEN T ([facility]) Respiratory rate 18 /min 18 /min MEDENT ( [facility]) Body temperature 99.3 [degF] 99.3 [degF] MEDENT ([facility]) Systolic blood pressure 126 mm[Hg] 126 mm[Hg] M EDENT ([facility]) Respiratory rate 18 /min 18 /min MEDENT ( [facility]) Diastolic blood pressure 78 mm[Hg] 78 mm[Hg] MEDENT ([facility]) Body height 63.7 [in_i] 63.7 [in_i] MEDENT ([facility]) 5'3.70" Body weight 156.50 [lb_av] 156.50 [lb_av] MEDEN T ([facility]) Body mass index (BMI) [Ratio] 27.1 kg/m2 27.1 k g/m2 MEDENT ([facility]) Heart rate 77 /min 77 /min MEDENT ([facility]) Body temperature 98.0 [degF] 98.0 [degF] MEDENT ([facility]) Oxygen saturation in Arterial blood by Pulse oximetry 97 % 97 % MEDENT ([facility]) [place] body weight 115 [lb_av] 115 [lb_av] MEDEN T ([facility]) Heart rate 62 /min 62 /min MEDENT ([facility]) Body height 64 [in_i] 64 [in_i] MEDENT ([facility]) 5'4" Body weight 152.00 [lb_av] 152.00 [lb_av] MEDEN T ([facility]) Body mass index (BMI) [Ratio] 26.1 kg/m2 26.1 k g/m2 MEDENT ([facility]) Oxygen saturation in Arterial blood by Pulse oximetry 90 % 90 % MEDENT ([facility]) Body temperature 97.0 [degF] 97.0 [degF] MEDENT ([facility]) Systolic blood pressure 120 mm[Hg] 120 mm[Hg] [facility] Diastolic blood pressure 68 mm[Hg] 68 mm[Hg] MEDENT ([facility]) Body temperature 98.8 [degF] 98.8 [degF] [facility] Heart rate 87 /min 87 /min [facility] ([facility]) Systolic blood pressure 126 mm[Hg] 126 mm[Hg] M [facility] ([facility]) Body height 63.7 [in_i] 63.7 [in_i] [facility] ([facility]) 5'3.70" Respiratory rate 19 /min 19 /min [facility] ( [facility]) Oxygen saturation in Arterial blood by Pulse oximetry 94 % 94 % [facility] ([facility]) [place] body weight 115 [lb_av] 115 [lb_av] MEDEN T ([facility]) Diastolic blood pressure 72 mm[Hg] 72 mm[Hg] [facility] Body weight 151.38 [lb_av] 151.38 [lb_av] MEDEN T ([facility]) Body mass index (BMI) [Ratio] 26.2 kg/m2 26.2 k g/m2 [facility] ([facility]) Systolic blood pressure 128 mm[Hg] 128 mm[Hg] [facility] Diastolic blood pressure 80 mm[Hg] 80 mm[Hg] [facility] Heart rate 72 /min 72 /min [facility] Body height 162.6 cm 162.6 cm [facility] Body weight 67.132 kg 67.132 kg [facility] Body mass index (BMI) [Ratio] 25.40 kg/m2 25.40 kg/m2 [facility] Oxygen saturation in Arterial blood by Pulse oximetry 97 % 97 % [facility] Heart rate 116 /min 116 /min MEDENT ([facility]) Respiratory rate 20 /min 20 /min [facility] ( [facility]) Systolic blood pressure 138 mm[Hg] 138 mm[Hg] M EDENT ([facility]) Diastolic blood pressure 82 mm[Hg] 82 mm[Hg] [facility] ([facility]) Body height 63.7 [in_i] 63.7 [in_i] MEDENT ([facility]) 5'3.70" Body weight 153.00 [lb_av] 153.00 [lb_av] MEDEN T ([facility]) Body mass index (BMI) [Ratio] 26.5 kg/m2 26.5 k g/m2 [facility] ([facility]) Body temperature 98.4 [degF] 98.4 [degF] [facility] ([facility]) Oxygen saturation in Arterial blood by Pulse oximetry 94 % 94 % [facility] ([facility]) 95 recheck [place] body weight 115 [lb_av] 115 [lb_av] MEDEN T ([facility]) Body surface area Derived from formula 1.73 m2 1.73 m2 [facility] ([facility] [employer]) Systolic blood pressure 142 mm[Hg] 142 mm[Hg] M EDENT ([facility] [employer]) Diastolic blood pressure 72 mm[Hg] 72 mm[Hg] [facility] ([facility] [employer]) Body height 64.25 [in_i] 64.25 [in_i] [facility] ([facility] [employer]) 5'4.25" Body weight 149.00 [lb_av] 149.00 [lb_av] MEDEN T ([facility] [employer]) Body mass index (BMI) [Ratio] 25.4 kg/m2 25.4 k g/m2 [facility] ([facility] [employer]) Systolic blood pressure 152 mm[Hg] 152 mm[Hg] M EDENT ([facility], [facility]) Diastolic blood pressure 86 mm[Hg] 86 mm[Hg] MEDENT ([facility], [facility]) Heart rate 66 /min 66 /min [facility] ([facility], [facility]) Respiratory rate 18 /min 18 /min MED[facility] ( [facility], [facility]) Oxygen saturation in Arterial blood by Pulse oximetry 98 % 98 % [facility] ([facility], [facility]) Body temperature 98.2 [degF] 98.2 [degF] MED[facility] ([facility], [facility]) Body weight 152.00 [lb_av] 152.00 [lb_av] MEDEN T ([facility], [facility]) Body height 65 [in_i] 65 [in_i] MEDENT ([facility]) 5'5" Body mass index (BMI) [Ratio] 25.3 kg/m2 25.3 k g/m2 [facility] ([facility], [facility]) Body mass index (BMI) [Ratio] 26.4 kg/m2 26.4 k g/m2 [facility] ([facility]) Heart rate 87 /min 87 /min [facility] ([facility]) Respiratory rate 20 /min 20 /min [facility] ( [facility]) Body temperature 97.9 [degF] 97.9 [degF] [facility] ([facility]) Oxygen saturation in Arterial blood by Pulse oximetry 95 % 95 % [facility] [place] body weight 115 [lb_av] 115 [lb_av] MEDEN T ([facility]) Systolic blood pressure 126 mm[Hg] 126 mm[Hg] EDENT ([facility]) Diastolic blood pressure 76 mm[Hg] 76 mm[Hg] [facility] ([facility]) Body height 63.7 [in_i] 63.7 [in_i] MEDENT ([facility]) 5'3.70" Body weight 152.25 [lb_av] 152.25 [lb_av] MEDEN T ([facility]) Respiratory rate 16 /min 16 /min [facility] ( [facility]) Body temperature 96.6 [degF] 96.6 [degF] [facility] ([facility]) Oxygen saturation in Arterial blood by Pulse oximetry 97 % 97 % [facility] ([facility]) [place] body weight 115 [lb_av] 115 [lb_av] MEDEN T ([facility]) Systolic blood pressure 128 mm[Hg] 128 mm[Hg] M EDENT ([facility]) Diastolic blood pressure 80 mm[Hg] 80 mm[Hg] [facility] Body height 63.7 [in_i] 63.7 [in_i] [facility] 5'3.70" Body weight 150.12 [lb_av] 150.12 [lb_av] MEDEN T ([facility]) Body mass index (BMI) [Ratio] 26.0 kg/m2 26.0 k g/m2 [facility] ([facility]) Heart rate 64 /min 64 /min [facility] ([facility]) Body height 64 [in_i] 64 [in_i] [facility] ([facility]) 5'4" Body surface area Derived from formula 1.74 m2 1.74 m2 [facility] ([facility]) Body weight 151.00 [lb_av] 151.00 [lb_av] [facility] Body mass index (BMI) [Ratio] 25.9 kg/m2 25.9 k g/m2 [facility] ([facility]) [place] body weight 120 [lb_av] 120 [lb_av] MEDEN T ([facility]) Body weight 68.494 kg 68.494 kg [facility] ([facility]) Body height 64 [in_i] 64 [in_i] [facility] ([facility]) 5'4" Systolic blood pressure 160 mm[Hg] 160 mm[Hg] [facility] Diastolic blood pressure 90 mm[Hg] 90 mm[Hg] [facility] ([facility]) Heart rate 74 /min 74 /min [facility] ([facility]) Oxygen saturation in Arterial blood by Pulse oximetry 96 % 96 % [facility] ([facility]) Body weight 68.494 kg 68.494 kg [facility] ([facility]) Body weight 151.00 [lb_av] 151.00 [lb_av] HAYDEE T ([facility], ) Body mass index (BMI) [Ratio] 25.9 kg/m2 25.9 k g/m2 ALESSIO ([facility], ) Patient Treatment Plan of Care Planned Activity Planned Date Details Description Data Source (s) 24 HR metoprolol succinate 25 MG Extended Release Oral Tablet 02/26/2021 12:00:00 AM EDT [facility] Warfarin Sodium 2 MG Oral Tablet 02/26/2021 12:00:00 AM EDT [facility] Warfarin Sodium 2.5 MG Oral Tablet 02/13/2021 12:00:00 AM EDT [facility] Prednisone 20 MG Oral Tablet 01/16/2021 12:00:00 AM EDT [facility] 24 HR metoprolol succinate 25 MG Extended Release Oral Tablet 11/04/2020 12:00:00 AM EDT [facility] Amoxicillin 875 MG / Clavulanate 125 MG Oral Tablet 10/24/19 12:00:00 AM EDT eCW1 ([facility]) Amoxicillin 875 MG / Clavulanate 125 MG Oral Tablet 10/24/19 12:00:00 AM EDT eCW1 ([facility]) Prednisone 20 MG Oral Tablet 10/18/2020 12:00:00 AM EDT eCW1 ([facility]) Prednisone 20 MG Oral Tablet 10/18/2020 12:00:00 AM EDT eCW1 ([facility]) Prednisone 20 MG Oral Tablet 10/18/2020 12:00:00 AM EDT eCW1 ([facility]) Prednisone 20 MG Oral Tablet 10/18/2020 12:00:00 AM EDT eCW1 ([facility]) Prednisone 20 MG Oral Tablet 10/18/2020 12:00:00 AM EDT eCW1 ([facility]) Prednisone 20 MG Oral Tablet 10/18/2020 12:00:00 AM EDT eCW1 ([facility]) atorvastatin 40 MG Oral Tablet 10/01/2020 12:00:00 AM EST [facility] Warfarin Sodium 2.5 MG Oral Tablet 10/01/2020 12:00:00 AM EST [facility] 24 HR metoprolol succinate 25 MG Extended Release Oral Tablet 07/17/2020 12:00:00 AM EST [facility] 24 HR metoprolol succinate 25 MG Extended Release Oral Tablet 07/17/2020 12:00:00 AM EST [facility] Warfarin Sodium 2.5 MG Oral Tablet 07/17/2020 12:00:00 AM EST [facility] atorvastatin 40 MG Oral Tablet 07/17/2020 12:00:00 AM EST [facility] 24 HR metoprolol succinate 25 MG Extended Release Oral Tablet 05/01/2020 12:00:00 AM EDT [facility] Sucralfate 1000 MG Oral Tablet 02/16/2020 12:00:00 AM EDT [facility] Trazodone Hydrochloride 50 MG Oral Tablet 10/04/2019 12:00:00 AM ES T [facility] Simethicone 80 MG Chewable Tablet 08/14/2019 12:00:00 AM EST [facility] LINZESS 72 MCG CAPS 08/11/2019 12:00:00 AM EST [facility] Estrogens, Conjugated (RETIREMENT) 0.625 MG/ML Vaginal Cream [Premarin] 04/22/2018 12:00:00 AM EDT [facility] 1 ML denosumab 60 MG/ML Prefilled Syringe [facility] Warfarin Sodium 2.5 MG Oral Tablet [facility]
--- OUTSIDE RECORDS SUMMARY | 2021-06-08 11:31 | CCD ---
Author Author [facility] Organization [facility] Address Unknown Phone Unavailable Support Name Relationship Address Phone [facility] Next Of Kin [address] [place] [address] Norman Barker Next Of Kin pt doesn't know numb er yet Unknown Unavailable Fan DARSHANAFaiza Next Of Kin [address] [place] [address] [place] [facility] Next Of Kin [address] [place] [address] [place] [phone] RE Next Of Kin Unknown Unavailable NORMAN HERNANDEZ Next Of Kin [address] [id number] [employer] Next Of Kin [address] [place] [address] [employer] Next Of Kin [employer] Unknown Unavailable UE Next Of Kin Unknown Unavailable [place] [employer] Next Of Kin [address] [place] [address] Unavailable CHERYL BOLDEN Next Of Kin [address] [id number] [employer] Next Of Kin [address] [place], [place] [id number] HA CLARKE Next Of Kin [address] [address] [id number] Ha Clarke Next Of Kin Unknown UNEMPLOYED Next Of Kin [address] [place] [address] Carol Marie ECON [address] [facility] [address] [place] [address] Unavailable Norman Hernandez ECON [address] [place] [address] Unavailable Care Team Providers Care Centrifugal Wax Molder Name Role Phone Niles, Charlene MD Unavailable [...] Unavailable Unavailable Porfirio ROGERS MD Unavailable Unavailable RGOERS, L ROYER VERONICA Unavailable Unavailable ROGERS, L [...] MD Unavailable Unavailab le EMILY (MARNI), Lilibeth FRNACES MD Unavailable Unavailab le EMILY (MARNI), Lilibeth [...] Lilibeth FRANCES MD Unavailable Unavailab le EMILY (MRANI), Lilibeth FRANCES MD Unavailable Unavailab [...] Lilibeth FRANCES MD Unavailable Unavailab le EMILY (MANRI), Lilibeth FRANCES MD Unavailable Unavailab le EMILY (MARNI), Lilibeth FRANCES MD Unavailable Unavailab le EMILY (MARNI), Lilibeth FRANCES MD Unavailable Unavailab le EMILY (MARNI), Lilibeth FRANCES MD Unavailable Unavailab le EMILY (MARNI), Lilibeth FARNCES MD Unavailable Unavailab le EMILY (MARNI), Lilibeth [...] LETTIERE, A GAVIN PA Unavailable Unavailable EMILY (MARNI), Lilibeth FRANCES MD [...] Lilibeth FRANCES MD Unavailable Unavailab le EMILY (MANRI), Lilibeth FRANCES MD Unavailable Unavailab le EMILY [...] Unavailable Unavailable JOSSUE-ANDREW, SOFIA DO Unavailable Unavailable JOSSUE-ANDRWE, SOFIA DO Unavailable Unavailable JOSSUE-ANDREW, SOFIA DO [...] Unavailable Unavailable JOSSUE-ANDREW, SOFIA DO Unavailable Unavailable JOSSEU-ANDREW, SOFIA DO Unavailable Unavailable JOSSUE-ANDREW, SOFIA DO [...] is protected by Article 27-F of the [place] [employer] law. If you continue you may have access to information: Regarding HIV / AIDS; Provided by facilities licensed or operated by the [place] Office of Mental Health; or Provided by the [place] Office for People With Developmental Disabilities. If such information is present, then the following [place] mandated warning applies: This information has been [...] law may result in a fine or shelter sentence or both. A general authorization for the release of medical or other information is NOT sufficient authorization for further disc losure. Allergies and Adverse Reactions Type Description Substance Reaction Status Data Source(s ) Drug allergy Iodine Tincture External Iodine Tincture Acti ve IZABEL (Brandon Duran MD [facility]) Drug allergy Duramorph Morphine Sulfate Active GREENW AY (Brandon Duran MD [facility]) Drug allergy Sulfa drug Oral Capsule Sulfa drug Active IZABEL (Brandon Duran MD [facility]) Family History Family Member Name Family Member Gender Family Member Status Date o f Status Description Data Source(s) Unknown Unknown Problem MEDENT (Isak alvarez [facility]) Encounters Encounter Providers Location Date Indications Data Source(s ) Outpatient [facility] 06[facility]05/[facility] 12[facility] 05/29/2021 12:00:00 AM EDT [facility] 05/22/2021 12:00 :00 AM EDT - 05/22/2021 09:05:44 AM EDT [facility] Attender: Gavin ZARATE [facility] 05/20/2021 03:40:00 PM EDT MED[facility] ([facility]) Outpatient SJP.STEPH-[facility].STEPH 05/15/2021 12:00:00 AM EDT [facility] 05/08/2021 08:33:00 AM EDT [facility] Attender: Gavin ZARATE [facility] 05/07/2021 09:30:00 AM EDT MEDENT ([facility]) Outpatient Attender: Rudy CARPENTER.STEPH-SJP.STEPH 04/04 12:00:00 AM EDT - 05/01/2021 10:42:39 AM EDT [facility] 04/24/2021 08:42:19 AM EDT [facility] 04/10/2021 12:00:00 AM EDT [facility] Attender: Gavin ZARATE [facility] 04/09/2021 09:20:00 AM EDT MED[facility] ([facility]) Outpatient SJP.STEPH-SJP.STEPH 04/03/2021 12:00:00 AM EDT [facility] MDAdmitter: JUAN DANIEL DIAZ MD ([place]) [id number] 03/31/2021 12:01:55 PM EDT [facility] Outpatient SJP.STEPH-SJP.STEPH 03/27/2021 12:00:00 AM EDT [facility] 03/20/2021 12:00:00 AM EDT [facility] 03/13/2021 11:22:26 AM EDT [facility] Attender: JUAN DANIEL [facility]ANGST[facility]) MDReferrer: J ILL [...] PM EDT [facility] Outpatient Referrer: JUAN DANIEL DIAZ MD ([place]) 11:10:24 AM EDT [facility] Outpatient Attender: Gavin ZARATE [facility] 02/28/2021 01:20:00 PM EDT MED[facility] ([facility]) Outpatient SJP.STEPH-SJP.STEPH 02/26/2021 12:00:00 AM EDT [facility] Attender: Gavin ZARATE [facility] 02/17/2021 09:20:00 AM EDT MED[facility] ([facility]) Outpatient Attender: Alena De La Vega MD Physical Therapy 02/17 09:00:00 AM EDT [facility] ([facility] Outpatient Attender: Jamie Griggs/Preethi/Ramón/R robertndporfirio 02/13/2021 03:00:00 PM EDT MED[facility] ([facility]) Outpatient SJP.STEPH-SJP.STEPH 02/13/2021 12:00:00 AM EDT [facility] Attender: Jamie Griggs/Preethi/Ramón/R eindl 02/11/2021 10:30:00 AM EDT MEDENT ([facility]) Outpatient SJP.STEPH-SJP.STEPH 02/07/2021 10:09:17 AM EDT [facility] 01/30/2021 12:00:00 AM EDT [facility] 01/27/2021 05:16:01 PM EDT [facility] ([facility]) Outpatient SJP.STEPH-SJP.STEPH 01/23/2021 12:00:00 AM EDT [facility] 01/16/2021 09:57:26 AM EDT [facility] Attender: Rudy CARPENTER.STEPH-SJP.STEPH 12/31 12:00:00 AM EDT - 01/16/2021 11:51:00 AM EDT [facility] 01/08/2021 09:56:08 AM EDT [facility] 01/01/2021 10:40:26 AM EDT [facility] Attender: Gavin ZARATE [facility] 01/01/2021 09:40:00 AM EDT [facility] [place] [address] [facility] [address] 12/23/2020 12:00:00 AM EDT eCW1 ([facility]) Outpatient<td ID="encounterTypeDescripti onID0">IOP CHECK</td><td>Brandon Duran MD, FACS</td><td>Brandon Weiss MD [facility]</td><td>12/19/2020</td><td>8:49AM</td><td>09/04/2020 11:59PM</td><td> <content ID="encounterDiagnosisID0-0">Glaucoma Open-angle Primary</content></td> Attender: Brandon Duran MD, FACS Brandon Weiss MD [facility] 12/19/2020 08:49:00 AM EDT - 09/04/2020 11:59:00 PM EST Glaucoma Open-angle Primary MCQUEENEY (Brandon Duran MD [facility]) Glaucoma Open-angle Primary Outpatient Attender: Gavin ZARATE [facility] 12/18/2020 09:20:00 AM EDT [facility] Outpatient SJP.STEPH-SJP.STEPH 12/18/2020 12:00:00 AM EDT [facility] Attender: Gavin ZARATE [facility] 12/04/2020 11:30:00 AM EDT [facility] Attender: JUAN DANIEL LANGSTON) MDReferrer: Alina Hamm [...] [facility] 11/19/2020 08:40:42 AM EDT [facility] Office Visit Attender: Charlene Cage MD Main office - [place] 11/11/2020 12:45:00 PM EDT MEDENT ([facility] ) Outpatient SJP.STEPH-SJP.STEPH 11/08/2020 12:00:00 AM EDT [facility] 10/29/2020 02:19:55 PM EDT [facility] [address] [facility] [address] 10/23/2020 12:00:00 AM EDT eCW1 ([facility]) [place] [address] [facility] [address] 10/21/2020 12:00:00 AM EDT eCW1 ([facility]) [place] [address] [facility] [address] 10/21/2020 12:00:00 AM EDT eCW1 ([facility]) [place] [address] [facility] [address] 10/21/2020 12:00:00 AM EDT eCW1 ([facility]) Out[place] [address] [facility] [address] 10/18/2020 12:00:00 AM EDT eCW1 ([facility]) [place] [address] [facility] [place] [address] 10/18/2020 12:00:00 AM EDT eCW1 ([facility]) TeleMedicine Phone E/M by Phys 11-20 Min [address] [place] [address] 10/16/2020 12:00:00 AM EDT eCW1 ([facility]) TeleMedicine Phone E/M by Phys 11-20 Min [address] [place] [address] 10/14/2020 12:00:00 AM EDT eCW1 ([facility]) Unknown [address] [facility] [address] 10/14/2020 12:00:00 AM EDT eCW1 ([facility]) Unknown [address] [facility] [address] 10/14/2020 12:00:00 AM EDT eCW1 ([facility]) Unknown [address] [facility] [place] [address] 10/14/2020 12:00:00 AM EDT eCW1 ([facility]) TeleMedicine Phone E/M by Phys 11-20 Min [address] [place] [address] 10/11/2020 12:00:00 AM EST eCW1 ([facility]) Outpatient Attender: Marii ZARATE 021 11:57:36 AM EST - 10/06/2020 01:17:44 PM EST [facility] ([facility] ) Outpatient Attender: Gavin ZARATE [facility] 10/01/2020 09:00:00 AM EST MED[facility] ([facility]) Outpatient SJP.STEPH-SJP.STEPH 10/01/2020 12:00:00 AM EST [facility] Attender: Charlene Cage MD Main office - [place] 09/18/2020 11:15:00 AM EST [facility] ([facility]) Outpatient SJP.STEPH-SJP.STEPH 09/17/2020 12:00:00 AM EST [facility] <td ID="encounterTypeDescriptionID1">TRI AGE NEW PATIENT</td><td>Brandon Duran MD, FACS</td><td>Brandon Weiss MD [facility]</td><td>09/04/2020</td><td>9:23AM</td><td>11:21AM</td><td><content ID="encounterDiagnosisID1-0">Glaucoma Open-angle Primary</content>, <content ID="encounterDiagnosisID1-1">Cataract Senile Nuclear</content>, <content ID="encounterDiagnosisID1-2">Dry Eye Syndrome Both Eyes</content>, <content ID="encounterDiagnosisID1-3">Vitreous Disorders Degeneration</content></td>Outpatient Attender: Brandon Duran MD, FACS Brandon Weiss MD [facility] 09/04/2020 09:23:00 AM EST - 09/04/2020 11:21:00 AM ES T Vitreous Disorders DegenerationDry Eye Syndrome Both EyesCataract Senile NuclearGlaucoma Open-angle Primary IZABEL (Brandon Duran MD [facility]) 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 Cataract Senile Nuclear Glaucoma Open-angle Primary Outpatient Attender: Gavin ZARATE [facility] 09/02/2020 07:45:00 AM EST MED[facility] ([facility]) Outpatient SJP.STEPH-SJP.STEPH 09/02/2020 12:00:00 AM EST [facility] Attender: Alena De La Vega MD Physical Therapy 08/15 08:45:00 AM EST [facility] ([facility]) Outpatient Attender: Gavin ZARATE [facility] 08/01/2020 08:20:00 AM EST MED[facility] ([facility]) Outpatient SJP.STEPH-SJP.STEPH 07/31/2020 12:00:00 AM EST [facility]STEPH-S[facility].STEPH 07/17/2020 10:53:37 AM EST [facility] Out[facility] Attender: Rudy Andersen MD SJP.STEPH-SJP.STEPH 07/02 12:00:00 AM EST - 07/17/2020 11:58:54 AM EST [facility] Out[facility] Attender: Tacos ZARATE [facility] 07/08/2020 03:00:00 PM EST MED[facility] ([facility]) Outpatient SJP.STEPH-SJP.STEPH 07/01/2020 12:00:00 AM EST [facility]STEPH-[facility].STEPH 06/24/2020 12:00:00 AM EST [facility]STEPH-SJP.STEPH 06/18/2020 08:36:18 AM EST [facility] Attender: JUAN DANIEL LANGSTON) MDReferrer: J ILL [...] [facility] 05/16/2020 12:44:05 PM EDT [facility] 05/16/2020 12:43:00 PM EDT [facility] 05/16/2020 12:04:00 PM EDT [facility] 05/16/2020 12:02:00 PM EDT [facility] Outpatient Attender: [facility] 05/16/2020 10:59:01 AM EDT [facility] Outpatient Attender: Kia Hanson [facility] 05/16/2020 08:58:00 AM EDT [facility] Outpatient Attender: ROYER ROGERS MD [facility] 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 11:15:00 AM EDT [facility] ([facility]) Outpatient Attender: GAVIN ZARATE [facility] 05/03/2020 08:20:00 AM EDT [facility] ([facility] Outpatient Attender: Gavin ZARATE Family [facility] 05/01/2020 09:20:00 AM EDT MED[facility] ([facility]) Outpatient SJTOMASA-SJP.STEPH 05/01/2020 12:00:00 AM EDT [facility] Attender: Tacos ZARATE [facility] 04/24/2020 11:00:00 AM EDT MED[facility] ([facility]) Outpatient Attender: Rudy MENDOZA-SJP.STEPH 04/02 09:59:10 AM EDT [facility] Attender: JUAN DANIEL LANGSTON) MDReferrer: Alina CERVANTES DO 04/09/2020 08:20:09 PM EDT [facility] Attender: JUAN DANIEL DIAZ ([place]) MDReferrer: Alina CERVANTES DO 04/09/2020 08:20:09 PM EDT [facility] Immunizations Vaccine Date Status Description Data Source(s) [...] 05/20/2021 12:00:00 AM EDT active MEDENT ([facility]) Prednisone 20 MG Oral Tablet Prednisone 05/20/2021 12:00:00 AM EDT ORAL completed [facility] ([facility]) 1 mg 05/08/2021 12:00:00 AM EDT tablet [...] 12:00:00 AM EDT ORAL active MED[facility] ([facility]) 12 HR CHLORPHENIRAMINE POLISTIREX 1.6 MG /ML [...] 02/28/2021 12:00:00 AM EDT active MED[facility] ([facility]) Warfarin Sodium 2 MG Oral Tablet warfarin (COUMADIN) 2 MG tablet warfarin (COUMADIN) 2 MG tablet 02/26/2021 12:00:00 AM EDT active One to two tabs daily as directed by rehabilitation clerk [facility] 24 HR metoprolol succinate 25 MG Extende d Release Oral Tablet metoprolol succinate (TOPROL-XL) 25 MG 24 hr tablet metoprolol succinate (TOPROL-XL) 25 MG 24 hr tablet 02/26/2021 12:00:00 AM EDT 25 mg Oral activ e Take 1 tablet (25 mg total) by mouth daily [facility] Omeprazole 40 MG Delayed Release Oral Capsule Omeprazole 02/17/2021 12:00:00 AM EDT ORAL active MED[facility] ([facility]) Prolia [facility]#[id number] (60mg Syringe)1MG 02/17/2021 12:00:00 AM EDT completed [facility] ([facility]) Medication administered onsite Warfarin Sodium 2.5 MG Oral Tablet warfarin (COUMADIN) 2.5 MG tablet warfarin (COUMADIN) 2.5 MG tablet 02/13/2021 12:00:00 AM EDT active One to two tabs daily as directed by rehabilitation clerk [facility] Prednisone 20 MG Oral Tablet predniSONE (DELTASONE) 20 MG tablet predniSONE (DELTASONE) 20 MG tablet 01/16/2021 12:00:00 AM EDT 20 mg Oral active Take 1 tablet (20 mg total) by mouth daily for 6 days [facility] 120 ACTUAT Fluticasone propionate 0.045 MG/ACTUAT / salmeterol 0.021 MG/ACTUAT Metered Dose Inhaler [Advair] Advair HFA 01/07/2021 12:00:00 AM EDT RESPIRATORY active MEDENT ( [facility]) benzonatate 100 MG Oral Capsule Benzonatate 01/01/2021 12:00:00 AM EDT ORAL completed MEDENT ([facility]) 60 ACTUAT Fluticasone propionate 0.1 MG/ ACTUAT / salmeterol 0.05 MG/ACTUAT Dry Powder Inhaler [Advair] Advair Diskus 01/01/2021 12:00:00 AM EDT RESPIRATORY completed [facility] ([facility]) 12 HR CHLORPHENIRAMINE POLISTIREX 1.6 MG /ML [...] AM EDT RESPIRATORY compl eted MEDENT ([facility]) 12 HR CHLORPHENIRAMINE POLISTIREX 1.6 MG /ML / HYDROCODONE POLISTIREX 2 MG/ML Extended Release Suspension Hydrocodone Polistirex/Chlorpheniramine Polistirex 12/18/2020 12:00:00 AM EDT completed [facility] ([facility]) 110 mcg/actuation 12/18/2020 12:00:00 AM EDT HFA [...] Back/Adjustable 12/18/2020 12:00:00 AM EDT active MED[facility] ([facility]) Walker Wheels/Fixed With 8 Adjustment Holes/5" 12/18/2020 12:00:00 AM EDT active MED[facility] ([facility]) benzonatate 100 MG Oral Capsule BENZONATATE 12/17/2020 [...] AM EDT RESPIRATORY complet ed MED[facility] ([facility]) benzonatate 200 MG Oral Capsule Benzonatate 12/04/2020 12:00:00 AM EDT completed [facility] ([facility]) 10-8 mg/5 mL 12/03/2020 12:00:00 AM EDT [...] tablet (25 mg total) by mouth daily [facility] 1 mg 11/02/2020 12:00:00 AM EDT tablet 60 TAKE ONE TABLET BY MOUTH TWICE A DAY MAXIMUM DAILY DOSE = TWO TABLETS TAKE ONE TABLET BY MOUTH TWICE A DAY MAXIMUM DAILY DOSE = TWO TABLETS SOLD: 11/02/2020 [employer] Amoxicillin 875 MG / Clavulanate 125 MG Oral Tablet Amoxicillin-Pot Clavulanate 875-125 MG Amoxicillin-Pot Clavulanate 875-125 MG 10/23/2020 12:00:00 AM ED T 1.0 {tablet} active eCW1 ([facility]) Amoxicillin 875 MG / Clavulanate 125 MG Oral Tablet Amoxicillin-Pot Clavulanate 875-125 MG Amoxicillin-Pot Clavulanate 875-125 MG 10/23/2020 12:00:00 AM ED T 1.0 {tablet} active Amoxicillin-Pot Cla vulanate 875-125 MG eCW1 ([facility]) Prednisone 20 MG Oral Tablet PredniSONE 20 MG PredniSONE 20 MG 10/18/2020 12:00:00 AM EDT 1.0 {tablet} active Pr edniSONE 20 MG eCW1 ([facility]) Prednisone 20 MG Oral Tablet PredniSONE 20 MG PredniSONE 20 MG 10/18/2020 12:00:00 AM EDT 1.0 {tablet} active eCW1 ([facility]) Prednisone 20 MG Oral Tablet PredniSONE 20 MG PredniSONE 20 MG 10/18/2020 12:00:00 AM EDT 1.0 {tablet} active Pr edniSONE 20 MG eCW1 ([facility]) Prednisone 20 MG Oral Tablet PredniSONE 20 MG PredniSONE 20 MG 10/18/2020 12:00:00 AM EDT 1.0 {tablet} active Pr edniSONE 20 MG eCW1 ([facility]) 20 mg 10/18/2020 12:00:00 AM EDT tablet 5 TAKE ONE TABLET BY MOUTH EVERY DAY FOR 5 DAYS TAKE ONE TABLET BY MOUTH EVERY DAY FOR 5 DAYS SOLD: 10/21/2020 [facility] Prednisone 20 MG Oral Tablet PredniSONE 20 MG PredniSONE 20 MG 10/18/2020 12:00:00 AM EDT 1.0 {tablet} active Pr edniSONE 20 MG eCW1 ([facility]) Prednisone 20 MG Oral Tablet PredniSONE 20 MG PredniSONE 20 MG 10/18/2020 12:00:00 AM EDT 1.0 {tablet} active Pr edniSONE 20 MG eCW1 ([facility]) Prednisone 20 MG Oral Tablet PredniSONE 20 MG PredniSONE 20 MG 10/18/2020 12:00:00 AM EDT 1.0 {tablet} active Pr edniSONE 20 MG eCW1 ([facility]) Prednisone 20 MG Oral Tablet PredniSONE 20 MG PredniSONE 20 MG 10/18/2020 12:00:00 AM EDT 1.0 {tablet} active Pr edniSONE 20 MG eCW1 ([facility]) 200 ACTUAT Levalbuterol 0.045 MG/ACTUAT Metered Dose I nhaler [Xopenex] Xopenex HFA 10/07/2020 12:00:00 AM EST RESPIRATORY active [facility] ([facility]) 45 mcg/actuation 10/07/2020 12:00:00 AM EST HFA [...] tablet (40 mg total) by mouth daily [facility] Warfarin Sodium 2.5 MG Oral Tablet warfarin (COUMADIN) 2.5 MG tablet warfarin (COUMADIN) 2.5 MG tablet 10/01/2020 12:00:00 AM EST 2.5 mg Oral active Take 1 tablet (2.5 mg total) by mouth nightly [facility] 24 HR Divalproex Sodium 250 MG Extended Release Oral T ablet [Depakote] Depakote ER 10/01/2020 12:00:00 AM EST ORAL active [facility] ([facility]) benzonatate 100 MG Oral Capsule [Tessalon Perles] Tessalon P erles 10/01/2020 12:00:00 AM EST ORAL completed [facility] ([facility]) montelukast 10 MG Oral Tablet Montelukast Sodium 10/01/2020 12:00:00 AM EST ORAL active MED[facility] ([facility]) rizatriptan 10 MG Oral Tablet [Maxalt] Maxalt 10/01/2020 12:00:00 AM EST ORAL active [facility] ([facility]) Sumatriptan 100 MG Oral Tablet [Imitrex] Imitrex 09/18/2020 12:00: 00 AM EST ORAL active [facility] ([facility]) Calcium Citrate-Vitamin D 500-500 MG-UNIT Oral Tablet Chewable Calcium Citrate- Vitamin D 500-500 MG-UNIT Oral Tablet Chewable 09/04/2020 12:00:00 AM EST 1 active Calcium Citrate-Vitamin D IZABEL (Brandon Duran MD [facility]) atorvastatin 40 MG Oral Tablet [Lipitor] Lipitor 40 MG Oral Tablet Lipitor 40 MG Oral Tablet 09/04/2020 12:00:00 AM EST 1 activ e atorvastatin 40 MG Oral Tablet [Lipitor] IZABEL (Brandon Duran MD [facility]) Warfarin Sodium 2.5 MG Oral Tablet [Coumadin] Coumadin 2.5 MG Oral Tablet Coumadin 2.5 MG Oral Tablet 09/04/2020 12:00:00 AM EST 1 active warfarin sodium 2.5 MG Oral Tablet [Coumadin] IZABEL (Brandon Duran MD [facility]) travoprost 0.04 MG/ML Ophthalmic Solutio n [Travatan] Travatan Z 0.004% Ophthalmic Solution Travatan Z 0.004% Ophthalmic Solution 09/04/2020 12:00 :00 AM EST 1 active travoprost 0.04 M G/ML Ophthalmic Solution [Travatan] IZABEL (Brandon Duran MD [facility]) Propylthiouracil 50 MG Oral Tablet Propylthiouracil 50 MG Or al Tablet 09/04/2020 12:00:00 AM EST 1 active propylt hiouracil 50 MG Oral Tablet IZABEL (Brandon Duran MD [facility]) Cholecalciferol 5000 UNT Oral Capsule Vitamin D3 Maximum Str ength 08/15/2020 12:00:00 AM EST ORAL active M EDENT ([facility]) Prolia [facility]#[id number] (60mg Syringe)1MG 08/15/2020 12:00:00 AM EST completed [facility] ([facility]) Medication administered onsite tramadol hydrochloride 50 MG Oral Tablet Tramadol HCL 08/01/2020 12:00:00 AM EST ORAL active MED[facility] ([facility]) NITROFURANTOIN, MACROCRYSTALS 100 MG Oral Capsule Nitrofuran toin Macrocrystal 08/01/2020 12:00:00 AM EST ORAL completed MED[facility] ([facility]) linaclotide 0.145 MG Oral Capsule [Linzess] Linzess 07/04 12:00:00 AM EST ORAL active MED[facility] ( [facility]) 100 mg 08/01/2020 12:00:00 AM EST capsule [...] tablet (25 mg total) by mouth daily [facility] Warfarin Sodium 2.5 MG Oral Tablet warfarin (COUMADIN) 2.5 MG tablet warfarin (COUMADIN) 2.5 MG tablet 07/17/2020 12:00:00 AM EST 2.5 mg Oral active Take 1 tablet (2.5 mg total) by mouth nightly [facility] 24 HR metoprolol succinate 25 MG Extende d Release Oral Tablet metoprolol succinate (TOPROL-XL) 25 MG 24 hr tablet metoprolol succinate (TOPROL-XL) 25 MG 24 hr tablet 07/17/2020 12:00:00 AM EST 25 mg Oral activ e Take 1 tablet (25 mg total) by mouth daily [facility] atorvastatin 40 MG Oral Tablet atorvastatin (LIPITOR) 40 MG tablet atorvastatin (LIPITOR) 40 MG tablet 07/17/2020 12:00:00 AM EST 40 mg Oral active Take 1 tablet (40 mg total) by mouth daily [facility] 10,000 unit/mL 06/11/2020 12:00:00 AM EST solution 2 INJECT 2 MLS INTO THE BLADDER VIA CATHETER ONCE WEEKLY INJECT 2 MLS INTO THE BLADDER VIA CATHET ER ONCE WEEKLY SOLD: 06/16/2020 [facility] 1 ML heparin sodium, porcine 62500 UNT/ML Injection Heparin Sodium (Porcine) 05/29/2020 12:00:00 AM EDT active [facility] ([facility]) Amitriptyline Hydrochloride 25 MG Oral Tablet Amitriptyline HCL 05/15/2020 12:00:00 AM EDT ORAL active M EDENT ([facility]) Prednisone 20 MG Oral Tablet Prednisone 05/03/2020 12:00:00 AM EDT active MEDENT ([facility], [facility]) Amoxicillin 875 MG Oral Tablet Amoxicillin 05/03/2020 12:00:00 AM EDT active MEDENT ([facility], [facility]) 25 mg 05/02/2020 12:00:00 AM EDT tablet extended release 24 hr 90 TAKE ONE TABLET BY MOUTH EVERY DAY TAKE ONE TABLET BY MOUTH EVERY DAY SOLD: 05/03/2020 [facility] Prednisone 20 MG Oral Tablet Prednisone 05/01/2020 12:00:00 AM EDT ORAL completed MEDENT ([facility]) 24 HR metoprolol succinate 25 MG Extende d Release Oral Tablet metoprolol succinate (TOPROL-XL) 25 MG 24 hr tablet metoprolol succinate (TOPROL-XL) 25 MG 24 hr tablet 05/01/2020 12:00:00 AM EDT 25 mg Oral abort ed Take 1 tablet (25 mg total) by mouth daily [facility] cetirizine hydrochloride 10 MG Oral Tablet Cetirizine HCL 04/24/2020 12:00:00 AM EDT ORAL active MEDENT ([facility]) Fluconazole 150 MG Oral Tablet [Diflucan] Diflucan 03/20/2020 1 2:00:00 AM EDT completed MEDENT ([facility]) NITROFURANTOIN, MACROCRYSTALS 25 MG / Ni trofurantoin, Monohydrate 75 MG Oral Capsule [Macrobid] Macrobid 03/20/2020 12:00:00 AM EDT ORAL completed MEDENT ([facility]) Sucralfate 100 MG/ML Oral Suspension [Carafate] Carafate 02/20/2020 12:00:00 AM EDT ORAL completed MEDENT ([facility]) Sucralfate 1000 MG Oral Tablet sucralfate (CARAFATE) 1 g tablet sucralfate (CARAFATE) 1 g tablet 02/16/2020 12:00:00 AM EDT a borted [facility] Trazodone Hydrochloride 50 MG Oral Tablet traZODone (D ESYREL) 50 MG tablet traZODone (DESYREL) 50 MG tablet 10/04/2019 12:00:00 AM EST aborted as needed [facility] Simethicone 80 MG Chewable Tablet simethicone (MYLICON ) 80 MG chewable tablet simethicone (MYLICON) 80 MG chewable tablet 08/14/2019 12:00:00 AM EST aborted as needed [facility] LINZESS 72 [facility] CAPS [id number] 08/11/2019 12:00:00 AM EST aborted as needed [facility] Estrogens, Conjugated (MCFP) 0.625 MG/ML Vaginal Cream [Premarin] PREMARIN vaginal cream PREMARIN vaginal cream 04/22/2018 12:00:00 AM EDT aborted [facility] 1 ML denosumab 60 MG/ML Prefilled Syringe denosumab (P ROLIA) 60 MG/ML SOSY denosumab (PROLIA) 60 MG/ML SOSY 60 mg Subcutaneous aborted Inject 60 mg under the skin once [facility] Warfarin Sodium 2.5 MG Oral Tablet warfarin (COUMADIN) 2.5 MG tablet warfarin (COUMADIN) 2.5 MG tablet 2.5 mg Oral aborted Take 2.5 mg by mouth nightly [facility] Insurance Providers Payer name Policy type / Coverage type Policy ID Covered green party ID Covered green party's relationship to sharma Policy Sharma Plan Information [employer] [facility] [id number] 1 [id number] [employer] [facility]/ [id number] 1 [id number] MEDICARE [id number] SP [id number] B MEDICARE [id number] SP [id number] D MEDICARE [id number] SP [id number] MEDICARE [id number] xxxxxxxxxxx [id number] Medicare Natl Gov't Servi Medicare Primary [id number] Self Medicare P [id number] S [id number] A MEDICARE [id number] Tova [id number] [place] Primary [id number] Self 0 [id number] Medicare Part B [facility] [id number] 0 [id number] Medicare Natl Gov't Servi Medicare Primary [id number] Self 1 [id number] MEDICARE [id number] Tova [id number] A [place] Medicare Primary [id number] .[id number] Self 0 [id number] MEDICARE [id number] Tova [id number] D MEDICARE [id number] SP [id number] A Medicare Part B [facility] [id number] 0 [id number] MEDICARE [id number] SP [id number] G92 FOR LIFE [id number] 118 [id number] FOR LIFE [id number] HU2 118 [id number] FOR LIFE [id number] 118 [id number] Tova [id number] xxxxxxxxx [id number] [place] Medicare Primary [id number] Self [id number] Medicare [place] Medicare Primary [id number] 2.16.840.1.268004.3.227.99.806.619.0 Self [id number] [place] Medicare Primary [id number] 2.16.840.1.035684.3.227.99.806.619.0 Self [id number] Medicare [place] Medicare Primary [id number] MRN.[id number] Self [id number] Medicare [place] Medicare Primary [id number] 2.16.840.1.360365.3.227.99.806.619.0 Self [id number] Medicare [place] Medicare Primary [id number] 2.16.840.1.716996.3.227.99.806.619.0 Self [id number] [id number] Medicare [place] Medicare Primary [id number] 2.16.840.1.388546.3.227.99.806.619.0 Self [id number] [place] Medicare Primary [id number] MRN.[id number] Self [id number] [place] Medicare Medicare Part B [id number] Self [id number] [employer] [id number] Self [id number] D [facility] P [id number] S [id number] INSURANCE COVID-19 [id number] xOVID 2 [id number] INSURANCE COVID-19 COVID Tova C OVID ANSI-Commercial [id number] ANSI-Medicare Part B [id number] ANSI-Medicare Part B [id number] MEDICARE [id number] SP [id number] A [place] < 08/02/17 Medigap Part B [id number] 2.0.1.938771.3.227.99.1629.4518.0 Family Dependent 1 [id number] For Life Medigap Part B [id number] 2.0.1.486854.3.227.99.1629.4518.0 Family Dependent 1 [id number] MEDICARE C [id number] S [id number] A WPS FOR LIFE [id number] 1 [id number] [facility] Medigap Part B [id number] 2.0.1.853730.3.227.99.991.053050.0 Family Dependent [id number] [facility] Serv (TFL) Medigap Part B [id number] 2.0.1.926467.3.227.99.991.738742.0 Self [id number] Medicare [place] Medicare Primary [id number] 2.0.1.535056.3.227.99.991.719429.0 Self [id number] [place] < 08/02/17 Medigap Part B [id number] 2.0.1.228389.3.227.99.1629.4518.0 Family Dependent 1 [id number] For Life Medigap Part B [id number] 2..1.980215.3.227.99.1629.4518.0 Family Dependent 1 [id number] Medicare [place] Medicare Primary [id number] 2.0.1.392194.3.227.99.806.619.0 Self [id number] For Life Medigap Part B [id number] 2.0.1.842377.3.227.99.806.619.0 Family Dependent [id number] Medicare [place] Medicare Primary [id number] 2.16.840.1.052944.3.227.99.806.619.0 Self 067 [id number] For Life Medigap Part B [id number] 2.16.840.1.867569.3.227.99.806.619.0 Family Dependent [id number] Medicare [place] Medicare Primary [id number] 2.16.840.1.283899.3.227.99.806.619.0 Self 067 [id number] For Life Medigap Part B [id number] 2.16.840.1.712730.3.227.99.806.619.0 Family Dependent [id number] Medicare [place] Medicare Primary [id number] 2.16.840.1.626261.3.227.99.806.619.0 Self 067 [id number] For Life Medigap Part B [id number] 2.16.840.1.135880.3.227.99.806.619.0 Family Dependent [id number] Medicare [place] Medicare Primary [id number] 2.16.840.1.304495.3.227.99.806.619.0 Self 067 [id number] For Life Medigap Part B [id number] 2.16.840.1.174772.3.227.99.806.619.0 Family Dependent [id number] FOR LIFE WPS [id number] Commercial Insuranc e [id number] For Life WPS Medigap Part B [id number] 2.16840.1.094153.3.227.99.1767.1321.0 Family Dependent 1 [id number] MEDICARE [id number] B [facility] Part B [id number] 2.16840.1.374729.3.227.99.991.639749.0 Family Dependent [id number] [place] [facility] Serv (TF) [facility] Part B [id number] 2.16840.1.609685.3.227.99.991.497642.0 Self [id number] Medicare [place] Medicare Primary [id number] 2.160.1.481017.3.227.99.991.048677.0 Self [id number] [facility] Part B [id number] 2.16840.1.308684.3.227.99.991.403618.0 Family Dependent [id number] [facility]) [facility] Part B [id number] 2.0.1.890854.3.227.99.991.941305.0 Self [id number] Medicare [place] Medicare Primary [id number] 2.840.1.048042.3.227.99.991.139605.0 Self [id number] For Life [employer] Part B [id number] 2.840.1.943744.3.227.99.806.619.0 Family Dependent [id number] Medicare [place] Medicare Primary [id number] 2.16840.1.417027.3.227.99.806.619.0 Self 067 [id number] MEDICARE C [id number] B For Life [employer] Part B [id number] 2.840.1.763784.3.227.99.806.619.0 Family Dependent [id number] Medicare [place] Medicare Primary [id number] 2.16.840.1.626309.3.227.99.806.619.0 Self 067 [id number] [facility] Part B [id number] 2.16.840.1.905085.3.227.99.991.051920.0 Family Dependent [id number] [facility] Serv (TFL) [facility] Part B [id number] 2.16.840.1.557409.3.227.99.991.261378.0 Self [id number] Medicare [place] Medicare Primary [id number] 2.16.840.1.866363.3.227.99.991.398246.0 Self [id number] For Life [facility] Part B [id number] 2.16.840.1.785726.3.227.99.806.619.0 Family Dependent [id number] Medicare [place] Medicare Primary [id number] 2.16.840.1.895137.3.227.99.806.619.0 Self 067 [id number] For Life [facility] Part B [id number] 2.16.840.1.203626.3.227.99.806.619.0 Family Dependent [id number] Medicare [place] Medicare Primary [id number] 2.16.840.1.717670.3.227.99.806.619.0 Self 067 [id number] [facility] OPTIONS C [id number] S [id number] [employer] [id number] Medic are [id number] FOR LIFE WPS [id number] Commercial Insuranc e [id number] [facility] Part B [id number] 2.0.1.965452.3.227.99.991.442544.0 Family Dependent [id number] [place] [employer] [facility]) [facility] Part B [id number] 2.0.1.554976.3.227.99.991.486699.0 Self [id number] Medicare [place] Medicare Primary [id number] 2.0.1.493392.3.227.99.991.342781.0 Self [id number] [facility] [id number] Medicar e [id number] MEDICARE C [id number] S [id number] D [employer] [facility] Part B [id number] 2.0.1.413546.3.227.99.1037.3581.0 Family Dependent 1 [id number] For Life [facility] Part B [id number] 2.0.1.1138 83.3.227.99.1037.3581.0 Family Dependent [id number] Medicare Part B Medicare Primary [id number] 2.0.1.714185.3.227.99.1037.3581.0 Self 1 [id number] [facility] Part B [id number] 2.0.1.177587.3.227.99.991.078459.0 Family Dependent [id number] [place] [employer] ([facility]) [facility] Part B [id number] 2.0.1.103281.3.227.99.991.695232.0 Self [id number] Medicare [place] Medicare Primary [id number] 2.0.1.928206.3.227.99.991.230096.0 Self [id number] Medicare Part B Medicare Primary 2.0.1.735848.3.227.9 9.1037.3581.0 Self [employer] [facility] Part B Dep Of Cheryl [id number] Family Dependent Dep Of Cheryl For Life [facility] Part B [id number] Family Dependent FOR LIFE WPS 2.16.840.1.163245.3.929 Comme rcial Insurance [employer] 16.840.1.117248 .3.929 Medicare Medicare Part B Medicare Primary [id number] Self BS [place] Medigap Part B [id number] Family Dependent [place] [employer] (TFL) Medigap Part B [id number] Self Medicare [place] Medicare Primary [id number] Self [employer] Commercial [id number] Family Depende nt Medicare Medicare Primary [id number] Self SELF PAY UNAVAILABLE SP UNAVAILA BLE For Life WPS Medigap Part B [id number] Family Depende nt MEDICARE PART A-O/P [id number] 18 [id number] MEDICARE -O/P [id number] 18 [id number] FOR LIFE UNAVAILABLE U NAVAILABLE FOR LIFE S [id number] P [id number] MEDICARE [id number] SP [id number] G92 [id number] FOR LIFE [id number] HU2 118 [id number] For Life Secondary ONLY [id number] [id number] Part [address] [facility] Other 0 [id number] Self 0 SELF PAY ONLY [id number] SP [id number] D [employer] [facility] [place] P [id number] S [id number] MEDICARE [id number] S [id number] [facility] S [id number] S [id number] FOR LIFE O [id number] P [id number] FOR LIFE WPS [id number] Commercial Insuranc e [id number] [employer] [id number] Medic are [id number] MEDICARE PART A-O/P [id number] 18 [id number] FOR LIFE-O/P [id number] 01 [id number] MEDICARE PART A-O/P [id number] 18 [id number] Medicare [place] Medicare Primary [id number] MRN.[id number] Self [id number] For Life Medigap Part B [id number] MRN.[id number] Family Dependent [id number] Medicare [place] Medicare Primary [id number] MRN.[id number] Self [id number] For Life Medigap Part B [id number] MRN.[id number] Family Dependent [id number] ANSI-Medicare Part B [id number] ANSI-Medicare Part B [id number] ANSI-Commercial [id number] [facility] [id number] [facility] [id number] [facility] Medigap Part B [id number] Family Dependent [id number] [place] [employer] [employer] (TFL) Medigap Part B [id number] Self [id number] Medicare [place] Medicare Primary [id number].[id number] Self [id number] ANSI-Medicare Part B [id number] ANSI-Medicare Part B [id number] ANSI-Commercial [id number] ANSI-Medicare Part B [id number] ANSI-Commercial [id number] ANSI-Medicare Part B [id number] Medicare [place] Medicare Primary [id number] 2.16.840.1.368685.3.227.99.806.619.0 [place] [id number] For Life [facility] Part B [id number] 2.16.840.1.752343.3.227.99.806.619.0 Family Dependent [id number] ANSI-Commercial [id number] ANSI-Medicare Part B [id number] ANSI-Medicare Part B [id number] Problems, Conditions, and Diagnoses Code Display Name Description Problem Type Effective Dates Data Source(s) I82.401 Acute embolism and thrombosi s of unspecified deep veins of right lower extremity Acute embolism and thrombosis of unspeci Diagnosis 05/22/2021 08:37:19 AM EDT [facility] D68.59 Other primary thrombophilia Other primary thrombophili a Diagnosis 05/01/2021 08:38:12 AM EDT [facility] K92.1 Melena Melena Diagnosis 04/24/2021 11:27:00 AM ED T [facility] R07.9 Chest pain, unspecified Chest pain, unspecified Diagno sis 01/16/2021 09:58:35 AM EDT [facility] E78.00 Pure hypercholesterolemia, unspecified P ure hypercholesterolemia, unspecified Diagnosis 01/16/2021 09:58:35 AM EDT [facility] I10 Essential (primary) hypertension Essential (primary) h ypertension Diagnosis 01/16/2021 09:58:35 AM EDT [facility] K58.1 Irritable bowel syndrome characterized b y constipation Irritable bowel syndrome characterized by constipation Problem 05/07/2021 12:00:00 A M EDT MEDENT ([facility]) G43.009 Migraine without aura, not refractory Mi graine without aura, not refractory Problem 04/09/2021 12:00:00 AM EDT MEDENT ([facility]) R05 Cough Cough [id number] 01/16/2021 12:00:00 AM ED T [facility] 379.21 Vitreous Disorders Degeneration Vitreous Disorders Deg eneration Problem 09/04/2020 12:00:00 AM EST IZABEL (Brandon Duran MD [facility]) [id number] Dry Eye Syndrome Both Eyes Dry Eye Syndrome Both Eyes Problem 09/04/2020 12:00:00 AM EST IZABEL (Brandon Duran MD [facility]) 366.16 Cataract Senile Nuclear Cataract Senile Nuclear Proble m 09/04/2020 12:00:00 AM EST IZABEL (Brandon Duran MD [facility]) H40.1131 Glaucoma Open-angle Primary Glaucoma Open-angle Primar y Problem 09/04/2020 12:00:00 AM EST IZABEL (Brandon Duran [facility]) K21.00 Gastro-esophageal reflux disease with ul ceration Gastro-esophageal reflux disease with ulceration Problem 08/01/2020 12:00:00 AM EST MEDENT ( [facility]) Surgeries/Procedures Procedure Description Date Indications Data Source(s) OFFICE OUTPATIENT VISIT 15 MINUTES 05/20/2021 12:00:00 AM EDT MEDENT ([facility]) OFFICE OUTPATIENT VISIT 25 MINUTES 05/07/2021 12:00:00 AM EDT MEDENT ([facility]) OFFICE OUTPATIENT VISIT 25 MINUTES 04/09/2021 12:00:00 AM EDT MED[facility] ([facility]) OFFICE OUTPATIENT VISIT 15 MINUTES 02/28/2021 12:00:00 AM EDT MEDENT ([facility]) OFFICE OUTPATIENT VISIT 25 MINUTES 02/17/2021 12:00:00 AM EDT MEDENT ([facility]) THERAPEUTIC PROPHYLACTIC/DX INJECTION SUBQ/IM 02/18/20 21 12:00:00 AM EDT MEDENT ([facility]) OFFICE OUTPATIENT VISIT 10 MINUTES 02/17/2021 12:00:00 AM EDT MEDENT ([facility]) Spirometry 02/13/2021 12:00:00 AM EDT M EDENT ([facility], ) Plethysmography Determination Lung Volumes & Per Airway Resi st 02/13/2021 12:00:00 AM EDT MEDENT ([facility], ) DIFFUSING CAPACITY 02/13/2021 12:00:00 AM EDT MEDENT ([facility], ) OFFICE OUTPATIENT VISIT 15 MINUTES 02/13/2021 12:00:00 AM EDT MEDENT ([facility], ) OFFICE OUTPATIENT VISIT 15 MINUTES 02/11/2021 12:00:00 AM EDT MEDENT ([facility], ) POCT AMB EKG <td>POCT AMB EKG</td><td>Rou david</td><td>01/16/2021 11:31 AM EDT</td><td> Chest pain, unspecified type</td><td> </td> 01/16/2021 11:31:00 AM EDT Chest pain, unspecified type [facility] Chest pain, unspecified type OFFICE OUTPATIENT VISIT 15 MINUTES 01/01/2021 12:00:00 AM EDT ALESSIO ([facility]) Intermediate Eye Exam Established Patient (25) Interme diate Eye Exam Established Patient (25) 12/19/2020 12:00:00 AM EDT IZABEL (Paulino Duran MD [facility]) OPHTHALMIC US DX CORNEAL PACHYMETRY UNI/BI Corneal Pachymetr y ([place]) 12/19/2020 12:00:00 AM EDT IZABEL (Brandon Duran MD [facility]) COMPUTERIZED OPHTHALMIC IMAGING OPTIC NERVE Scodi, opt ic nerve with interpretation and report ([place]) 12/19/2020 12:00:00 AM EDT GR EENWAY (Brandon Duran MD [facility]) OFFICE OUTPATIENT VISIT 25 MINUTES 12/18/2020 12:00:00 AM EDT ALESSIO ([facility]) Needle electromyography, each extremity, with related paraspinal areas, when performed, done with nerve conduction, amplitude and latency/velocity study; complete, five or more muscles studied, innervated by three or more nerves or four or more spinal levels (list separately in addition to the code for primary procedure). 12/05/2020 12:00:00 AM EDT MEDKRIS T ([facility], ) Needle electromyography, each extremity, with related paraspinal areas, when performed, done with nerve conduction, amplitude and latency/velocity study; complete, five or more muscles studied, innervated by three or more nerves or four or more spinal levels (list separately in addition to the code for primary procedure). 12/05/2020 12:00:00 AM EDT MEDEN T ([facility], ) 12011 Nerve conduction studies 13 or more studies NEW 201212/05/2020 12:00:00 AM EDT MEDANTHONY ([facility], ) OFFICE OUTPATIENT VISIT 25 MINUTES 12/04/2020 12:00:00 AM EDT MEDENT ([facility]) Needle electromyography, each extremity, with related paraspinal areas, when performed, done with nerve conduction, amplitude and latency/velocity study; complete, five or more muscles studied, innervated by three or more nerves or four or more spinal levels (list separately in addition to the code for primary procedure). 11/20/2020 12:00:00 AM EDT MEDEN T ([facility], ) Needle electromyography, each extremity, with related paraspinal areas, when performed, done with nerve conduction, amplitude and latency/velocity study; complete, five or more muscles studied, innervated by three or more nerves or four or more spinal levels (list separately in addition to the code for primary procedure). 11/20/2020 12:00:00 AM EDT MEDEN T ([facility], ) [address] Nerve conduction studies 13 or more studies NEW 201211/20/2020 12:00:00 AM EDT MED[facility] ([facility], ) MRI SPINAL CANAL CERVICAL W/O CONTRAST MATRL 1 12:00:00 AM EDT [facility] ([facility], ) MRI SPINAL CANAL CERVICAL W/O CONTRAST MATRL 1 12:00:00 AM EDT [facility] ([facility], ) MRI SPINAL CANAL LUMBAR W/O CONTRAST MATERIAL 10/27/19 21 12:00:00 AM EDT [facility] ([facility], ) MRI SPINAL CANAL LUMBAR W/O CONTRAST MATERIAL 10/27/19 21 12:00:00 AM EDT [facility] ([facility], ) OFFICE OUTPATIENT VISIT 25 MINUTES 10/01/2020 12:00:00 AM EST [facility] ([facility]) Surgical / procedural history 1969, hystere ctomy 1975, Hernia 1975 Surgical / procedural history 1969, hysterectomy 1975, Hernia 197509/04/2020 12:00:00 AM EST IZABEL (Brandon dean MD [facility]) Medical Eye Exam Medical Eye Exam 09/04/2020 12:00:00 AM EST IZABEL (Brandon Duran MD [facility]) OFFICE OUTPATIENT VISIT 15 MINUTES 09/02/2020 12:00:00 AM EST [facility] ([facility]) THERAPEUTIC PROPHYLACTIC/DX INJECTION SUBQ/IM 08/15/19 12:00:00 AM EST [facility] ([facility]) Irrigation Of Bladder 06/19/2020 12:00:00 AM EST [facility] ([facility]) Irrigation Of Bladder 06/11/2020 12:00:00 AM EST [facility] ([facility]) Irrigation Of Bladder 06/04/2020 12:00:00 AM EST [facility] ([facility]) Irrigation Of Bladder 05/29/2020 12:00:00 AM EDT [facility] ([facility]) Results ID Date Data Source [id number] 05/20/2021 03:50:00 PM EDT [facility] ([facility]) Name Value Range Interpretation Code Description Data Yolette rce(s) Supporting Document(s) Respiratory Panel Laboratory test result MEDENT ([facility]) This respiratory PCR panel detects Influ gabriel [...] - SARS-CoV-2 (COVID19) ID Date Data Source [id number] 05/20/2021 03:50:00 PM EDT [facility] Name Value Range Interpretation Code Description Data Yolette rce(s) Supporting Document(s) SARS-CoV-2 (COVID 19) NEGATIVE - SARS-CoV-2 (COVID19) [facility] This lab was ordered by [facility] a nd reported by [facility]. ID Date Data Source [id number] 04/11/2021 12:39:00 AM EDT [facility] FASTING: UNKNOWNReceived: 04/04/2021 at 03:32:00 QPT: [facility], [address], [address] [place], [address], Jose Daniel Agrawal MD Received: 04/04/2021 at 03:32:00 QPT : [facility], [address], [address] [facility], [place], [address], Jose Daniel Agrawal MD Received: 04/04/2021 at 03:32:00 AMD : [facility], [address], [place], [address], Feng Suarez M.D.,PhD Name Value Range Interpretation [...] is approximately 13% higher for peopleidentified as -U[place]. eGFR NON-AFR. IVORIAN 62 mL/min/1.73m2 > OR = 60 Normal [...] results) [facility] ID Date Data Source [id number] 04/11/2021 12:39:00 AM EDT [facility] FASTING: UNKNOWNReceived: 04/04/2021 at 03:32:00 QPT: [facility], [address], [address] [place], [address], Jose Daniel Agrawal MD Received: 04/04/2021 at 03:32:00 QPT : [facility], [address], [address] [place], [address], Jose Daniel Agrawal MD Received: 04/04/2021 at 03:32:00 AMD : [facility], [address], [place], [address], Feng Suarez M.D.,PhD Name Value Range Interpretation [...] results) [facility] ID Date Data Source [id number] 04/11/2021 12:39:00 AM EDT [facility] FASTING: UNKNOWNReceived: 04/04/2021 at 03:32:00 QPT: [facility], [address], [address] [place], [address], Jose Daniel Agrawal MD Received: 04/04/2021 at 03:32:00 QPT : [facility], [address], [address] [place], [address], Jose Daniel Agrawal MD Received: 04/04/2021 at 03:32:00 AMD : [facility], [address], [place], [address], Feng Suarez M.D.,PhD Name Value Range Interpretation Code Description Data Yolette rce(s) Supporting Document(s) Natriuretic peptide.B prohormone N-Terminal [Mass/volu me] in Serum or Plasma 149 pg/mL [facility] For Heart Failure (HF) diagnosis, refere nce ranges inpatients with dyspnea are based on Estefania MAR, Et al.Am [facility] Cardiol. 2018;71:8909-7727.18-49 years:<= 300 pg/mL Normal, HF unlikely>= 450 [...] Clin Biochem. 2010;43:1405-10.For additional information, please refer [email or web address](This link is being provided for informational/educational purposes only.) ID Date Data Source [id number] 03/04/2021 11:15:[address] [facility] ABDOMEN KUBCLINICAL HISTORY: Constipation. Bloating. 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 [file] 4hcnvwXl15MVAUWGd9Z4uryQWKdIIRJWqP6/9tUa0CCHUVCniZ/OJHelW/floor winder/m7A9u3m/2UcTeTYUZd [file] E5rza/erybongyQ+NLBvfjbEKQmtTwR5fPvopm3/FLAP LINING BINDER [file] kuekkZ8TqzHNwKlJzRW2sKbpkbrDpptqi9+DckwO0IqkCXvr6+exploitation analyst/RT8XeU/OnonJTgAJi6VwRMVQTk JFWtZpw5wi+qWQAYkYOABQ6i92ISO2IPxo0GHbskr4 iBlDdsLC3Jg401L0xbJQiyE7cE5yGZYc8RWK0BZNcHDGtJYrn6NR/zLl00u8bQH/4J+CK0/JypKkByct gnj+mGf65hYuIaURN6z47nmffj5S79RXqBx4nlxXlg8IScrvHW+y6FFnsg6Qi+kiD8dEKfF3mQU3qq08 0hMPMYSD+evqdNwpyQ1VRkErx1LH9dzUKE9Je9OQ3D 1IC4fshcvpDEe3wdl4dmxi1QojcstKRxeO5u1WOyOe/eDy6bpxFdLrRvVl4RQ84FntITDq8OAhrVdfSb 9B58dclBIrDRi4yUOPUqR7Yc5wQfvayU7F7Bs+4fO0guKsaGndOpe8rSgdhMff30GCo0Sipgx5RuOTzm wUK2PPxza0aM194vLN3FJRg+yrPt7fORVBfyASnbsj goT9fn5w1Vnr6CUoKV8kviTbyR/mR/oPJ+ZoKAYs8jaCsonjoXZ8Jo2SP4ZV179gr79Tu8qAomOo2w3Y mvsQvw2WctF+Pmp2pGD5oSOCpGh/aEFZ4O1hmTkfNx8x6MKs4ds3z5ijb8OE0GCgHKivyhFcdq1z4VPu 3YcQ5VHevcQ2gbhkHmGJXAK24PUz6ncYkhKbKZDoGb bnNkzARbi1RMLu206rxigGoKVYr/LJubY19bMtk4P3P+tNrnwtzN40k9ZhIeAkbe2RlBzidDpAx5ObnY oxj5JnRaHHPBJz6ERvSsIoREbrumv7b49sacZd0AQ+UK8+8z6TPC+S4QFp4JYj9OlMkiX73/puLBLHb1 /0ETzukP7kXOCxnmcu+Rlq7maTD4abjiXz1JlBnln7 1UCIUBd6n3aXKcluFbf004wQqM6kTN2aBMPWEv0L6rXfSs692/YK7uxoRfV/Leela/sSw5EUnkXjtuhVnVn yBwhHnelIADXT2S/FwN35yVGx9KZefpvjwmsoBHvXXlOgkbOVxZ/F2W+kzJCrUsrfMqMuOBxUi+rF6hc cY2HUoulLMf+QeYBF/jAfd+XmeLV6HQqnDN9fDxN/F r1BgeZmQ445xfC53l91aG/HLDBRATpfM21ivBO21OLwM7FqfGvuExt6869zAVTx+mcSDSf5jwOZ3jcGe 4nU8+zcEVIvZhw0M+AC/mg35t9qUtWO7RcZWKF5oXrA8nrry9j2EiTwUq+tJllBeZFIT0ovBxwsWQjhW cUaV7ITac/t24gJaNNCgUeiCL1zdU11Uq7v0EZctCu 8XqtAhBQI5Cg+NizpUHjjC3eung9d8LKvKPL25zd6s2iGFSq4weXPJEbdU2pLvUzCHan+qvi0OSA93kY y9GaS5i+NUDGHpPULeFHbG44YjL0/lkTalPSU+f2sJA6rcW0DxOmH+7bQaO9T7GRw7iEwkABUg43f2Ka 99pJPg+Bh64SjOGRvmW0/2FwgxzjidzsKu6mk6j2rv u2/8mMxwdq2k3XMQWo4rmU1DtB4ogeMHZyXOCKvr7A02+CAROL+RirWix74WL3wWshO4j4wFe8jyHo3xZzp Q74+JrQh/YO4qcRspBoo4H6DbxUrAHpn2aF67WB9qLk8GEIXOyCIgmCGfgovnPCM0uqP2oDw/zzE8TN9 3o/8XYVdR2PpJ09OEfWaV4ayb4E+l5hOD9m+SS/w+Q sldYrgTXp7Z8PJsapG3Fi1QtJNUlDI8QnVze6QNL21uKgMVQ/ZzgIbt8DirASfTi3bw1jj7K7V9bzO+w ySTvjMnqtfmh5CRk/Q+k2mGMOa2n5aU+Q0zRiV42lEmKwMgUM2/FyPQZTy+OqLiAZ2HTdN+fEnBy+OjF 01ACOmc7sdC8ERxoHGeFJjT2k6thHxDL0lucrI8ZZU UGaJTaAB1BTvcba14xr39aN81HghpApOumjmvbg+kJnPEtiLbNgEo5EkbPzvt5wOphjs0Ots1z1NyQaO bVbY9uvvlFqjZ3sUIK0LX+dUoBMsbNsjr9/npbFiO/1drkMCh7Rf5HdIgntlsuvzpoM9Marli/BzvchR RAAc4eF+xUcOHVTi9Gv8LIwo6avLlHewEZzblUV+Polanco [file] tUUrWjgpkie79ekFemqlJzygEVjnhO8oESoAcu6 [file] Rodríguez+oN6x+293c5kpiIWEIEH8HwkTbcbrcwEzSv3Kk/UmNllkH3l7k6jEsEMGU449QefPGLdxoQGEmv7Q [file] e5Kl6astuCN1/GMnJgT9l6yx53TlRkc/materials engineering technician/5e26cHdnYqzqmROd7WoqttA1Fq8rOOT4UAZInr8JcYr [file] vGXRk/ONnXJqSXBdjXXlZql/osteology teacher+Er0jdVmY/fL9AbWsHbbawrSF0CprG4MxevMifCg3yP76wfg0ogwbg [file] SEJbSulp8r7U3gD1ZrxE5dlaN3/c1lOESqqFl7tuSdt3EBXUcuUDAw+building construction professor+zs6c/gVbOgmLeyNwcXndfq [file] 9WN08Y8gM6PgKnMod7s3Hq4YanCysEFFDZWLp/Bd6Proe7Wj2O5drb0hGG0oFDLqmlGosv2l8Ks3+Customer Solutions Representative [file] iXnuRWlhW4rAbPJe+CmGATBbb3M7a2Uh9PzHU6a2lajT8Gtng6LhgEf2kiWlxfbxoFAGxbAWOSHh+squaring shear operator [file] 4+378/mYEn/pDK96cNdeP41RmMYFRO/cx+pYc2AYG7YhIY4TkQq8Ozv8Ba4TnChPokKCtoiV2rv+[place] [file] api architect/cB0bznph5pEkjliHpiWRKtir1iaLnX67qfzEna [file] generation technician/iGqFByMbcp/1J0ME5uXBLtHZlfQxgmptLheDX0 [file] Ann Marie+MZQ2YpyIBILS1EeAcSmYgRk8C+uaViLwF61rZDk/HxsH1a13rk+3SYjUO92lsp1QHxSo3EhsUyGI [file] kIcdKzcXTD3mw5lupfVM+Jose Luis+nPtyZ6oJmrqJJBRFME1gb6XXjUkJwDI/eApbZ4UQC9gEfTIWfEewekp [file] consumer science teacher+YSHaBFS0/g8C40YNOkRADHM5QEDlSynNa90um [file] SENIOR LABORATORY TECHNICIAN+2dxIlodpoGEb36wU9TRD+MizBUataj5MRJTgt7rP9qP/QkcgMQmscIM2NMPnKpRwdkR6vACXk89G3 [file] Qa/2Tjcler1Kwy1comJ6akv/G2n3Byb/tower attendant/wh8X29 [file] 8B04Kk5/NPl/Ana Maria/I1idNFMBeD+R4NWjRwxYz1kfr7jPo7c1FtI9JraiTU8//7EHZgBQoRWrq3FhY3Eh [file] eZ6XSxMVAn//28u2MeaEJzLw96fawsrixs857CR [file] PBHjB5QCTDBAkQMk1rEVULMYRUKZVjYgUVZ7CWX5V8 LKZ2SQD4XGtXKgGsA1VDGd3aLi1mrKTdVZZeYm3NrpFdBUCzIOIKN7IoztToEJdfACwmLNVqRFLkIf9E IFsxIDQgMV0+CiO7rtHfyZ8MyObeXZFeMCMmBBYmUZHHAC6ZmLmDOYTkrML4pj1PeaOEe86RkeXnXQS2 PwxMLgeSvN//xXxnXEAaQFBPlR7QFK8bLTPhBgXTSQ qxxdBimOAzWQ8YZjFfZF8hkg1APnK6YHD0bCAtYt1ONBM5RII1GO7CWLGZJ7A= ID Date Data Source [id number] 02/28/2021 01:52:00 PM EDT [facility] ([facility]) Name Value Range Interpretation Code Description Data Yolette rce(s) Supporting Document(s) Respiratory Panel Laboratory test result [facility] This respiratory PCR panel detects Influ gabriel [...] - SARS-CoV-2 (COVID19) ID Date Data Source [id number] 02/28/2021 01:52:00 PM EDT [facility] Name Value Range Interpretation Code Description Data Yolette rce(s) Supporting Document(s) SARS-CoV-2 (COVID 19) NEGATIVE - SARS-CoV-2 (COVID19) [facility] This lab was ordered by [facility] a nd reported by [facility]. ID Date Data Source [id number] 02/12/2021 09:56:00 AM EDT [facility] ([facility]) Name Value Range Interpretation Code Description Data Yolette rce(s) Supporting Document(s) Calcium [Moles/volume] in Serum or Plasma 9.6 mg/dL 8.8-10.2 [facility]) ID Date Data Source [id number] 12/15/2020 04:32:00 PM EDT [facility] Name Value Range Interpretation Code Description Data Yolette rce(s) Supporting Document(s) SARS-CoV-2 (COVID 19) NEGATIVE - SARS-CoV-2 (COVID19) [facility] This lab was ordered by [facility] a nd reported by [facility]. ID Date Data Source [id number] 12/12/2020 06:39:00 PM EDT [facility] Name Value Range Interpretation Code Description Data Yolette rce(s) Supporting Document(s) SARS-CoV-2 (COVID 19) NEGATIVE - SARS-CoV-2 (COVID19) [facility] This lab was ordered by [facility] a nd reported by [facility]. ID Date Data Source [id number] 12/06/2020 01:08:00 PM EDT [facility]) Name Value Range Interpretation Code Description Data Yolette rce(s) Supporting Document(s) Hemoglobin A1c 5.5 % Normal (applies to non-numeric r esults) [facility]) <content>REFERENCE RANGES:</content><br/ ><content></content>
<content><=5.6% NORMAL</content>
<content>5.7-6.4% SUGGESTS IMPAIRED GLUCOSE METABOLISM/PREDIABETIC</content>
<content>>= 6.5% ABNORMAL</content>
<content></content> Estimated Average Glucose 111 mg/dL 60-110 Above high normal [facility] ([facility]) ID Date Data Source [id number] 12/06/2020 01:08:00 PM EDT [facility] ([facility]) Name Value Range Interpretation Code Description Data Yolette rce(s) Supporting Document(s) Blood Urea Nitrogen 21 mg/dL 7-18 Above high normal [facility]) Glucose, Fasting 98 mg/dL 70-100 Normal (applies to non-numeric results) [facility]) Creatinine For GFR 0.94 mg/dL 0.55-1.30 Normal (applies to non -numeric results) [facility] ([facility]) Glomerular Filtration Rate Laboratory test result Normal (applies to non- numeric results) [facility] ([facility]) <content>Units are mL/min/1.73 m2</content>
<content></content>
<content>Chronic Kidney Disease Staging per NKF:</content>
<content></content>
<content>Stage I & II GFR >=60 Normal to Mildly Decreased</content>
<content>Stage III GFR 30- 59 Moderately Decreased</content>
<content>Stage IV GFR 15-29 Severely Decreased</content>
<content>Stage V GFR <15 Very Little GFR Left</content>
<content>ESRD GFR <15 on AFTER SCHOOL PROGRAM COORDINATOR</content>
<content></content> Potassium Serum 4.4 meq/L 3.5-5.1 Normal (applies to non-numeric results) [facility] ([facility]) Chloride Level 107 meq/L 98-107 Normal (applies to non-numeric r esults) [facility] ([facility]) Sodium Level 140 meq/L 136-145 Normal (applies to non-numeric res ults) [facility] ([facility]) Calcium Level 9.5 mg/dL 8.8-10.2 Normal (applies to non-numeric re sults) [facility] ([facility]) Anion Gap 4 meq/L 8-16 Below low normal [facility] ( [facility]) Carbon Dioxide Level 29 meq/L 21-32 Normal (applies to non-num juanito results) [facility] ([facility]) Alkaline Phosphatase 66 U/L 45-117 Normal (applies to non-num juanito results) [facility] ([facility]) Alt/SGPT 26 U/L 12-78 Normal (applies to non-numeric resul ts) [facility] ([facility]) Ast/Sgot 16 U/L 7-37 Normal (applies to non-numeric resul ts) [facility] ([facility]) Bilirubin,Total 0.8 mg/dL 0.2-1.0 Normal (applies to non-numeric results) [facility] ([facility]) Albumin 3.8 GM/DL 3.2-5.2 Normal (applies to non-numeric resul ts) [facility] ([facility]) Albumin/Globulin Ratio 1.1 1.2-2.2 Below low normal [facility] ([facility]) Total Protein 7.3 GM/DL 6.4-8.2 Normal (applies to non-numeric re sults) [facility] ([facility]) ID Date Data Source [id number] 12/06/2020 01:08:00 PM EDT [facility] ([facility]) Name Value Range Interpretation Code Description Data Yolette rce(s) Supporting Document(s) Creatine kinase [Enzymatic activity/volume] in Serum or Plasma 5 5 U/L 26-192 Normal (applies to non-numeric results) [facility]) Erythrocyte sedimentation rate by Westergren method 33 mm/hr 0-30 Above high normal [facility] ([facility]) C reactive protein [Mass/volume] in Serum or Plasma by High sensitivity method 0.30 mg/dL 0.00-0.30 Normal (applies to non-numeric results) [facility] ([facility]) ID Date Data Source [id number] 12/06/2020 01:08:00 PM EDT [facility] ([facility]) Name Value Range Interpretation Code Description Data Yolette rce(s) Supporting Document(s) White Blood Count 6.2 10 4.0-10.0 Normal (applies to non-numeri c results) [facility] ([facility]) Red Blood Count 4.27 10 4.00-5.40 Normal (applies to non-numeric results) [facility] ([facility]) Hemoglobin 12.5 g/dL 12.0-15.5 Normal (applies to non-numeric resul ts) [facility] ([facility]) Mean Corpuscular Volume 92.3 fl 80.0-96.0 Normal ( applies to non-numeric results) [facility] ([facility]) Hematocrit 39.4 % 36.0-47.0 Normal (applies to non-numeric resul ts) [facility] ([facility]) Mean Corpuscular Hemoglobin 29.3 pg 27.0-33.0 Norm al (applies to non-numeric results) [facility]) Mean Corpuscular HGB Conc 31.7 g/dL 32.0-36.5 Below low normal [facility] ([facility]) Platelet Count, Automated 270 10 150-450 Normal (applies to non-numeric results) [facility] ([facility]) Red Cell Distribution Width 15.5 % 11.5-14.5 Above high normal [facility] ([facility]) Neutrophils % 67.1 % 36.0-66.0 Above high normal [facility] ([facility]) Lymph % 21.8 % 24.0-44.0 Below low normal [facility] ( [facility]) [place] % 7.1 % 2.0-8.0 Normal (applies to non-numeric resul ts) [facility] ([facility]) Baso % 0.8 % 0.0-1.0 Normal (applies to non-numeric resul ts) [facility] ([facility]) Eos % 2.9 % 0.0-3.0 Normal (applies to non-numeric resul ts) [facility] ([facility]) Nucleated Red Blood Cell % 0.0 % 0-0 Normal (applies to n on-numeric results) [facility] ([facility]) Immature Granulocyte % 0.3 % 0-3.0 Normal (applies to non-n umeric results) [facility] ([facility]) Neutrophils # 4.2 10 1.5-8.5 Normal (applies to non-numeric re sults) [facility] ([facility]) Lymph # 1.4 10 1.5-5.0 Below low normal [facility] ( [facility]) Eos # 0.2 10 0.0-0.5 Normal (applies to non-numeric resul ts) [facility] ([facility]) [place] # 0.4 10 0.0-0.8 Normal (applies to non-numeric resul ts) [facility] ([facility]) Baso # 0.1 10 0.0-0.2 Normal (applies to non-numeric resul ts) [facility] ([facility]) ID Date Data Source [id number] 11/26/2020 12:00:00 PM EDT [facility] Name Value Range Interpretation Code Description Data Yolette rce(s) Supporting Document(s) Follow Up [facility] [employer] VASLPs8iFiHLKeYuWRJuHpnBLRufHNhsPYUrB3O5SRcyCm5MXAfxuwFeIOOzHp9+PJHoBV0okv3kANUj gMy [file] P+ubgU9Xy+staffing manager/vqlBvYKBlescP80dykx/q6RcfEARbaosNsDMAjRDKJG2gzXRKtszSLKKWo02ALWcBN [file] tree fruit and nut farming supervisor/pIgwEUyIAmje2x8QNzxzD+dqSSesi/+hZP++GQ7qeKWUXvm3GIXP2NNIRu9kck27/PpTC+TLeSoI [file] cardiac care unit nurse/kNbmW4pPTh1AD2YZMLuhRnlaXIB0f7jeHTjzGqoQQJXBYc9uawsVzs6cXv6ZgRnJRiLewtU4c9yE [file] ZqLwQYCfQSRapddtyHTKKFIJWzhevf0L9taidifbto639/1fk3ocoynD81geEdfomv5oudgyAoF/mdrd PQYkmhUg86beNHc5cCDxba2x/z1VESMWOWAmbwc5g/+elwn9NbdgkbI84CB46W7HzsuqzwHR+4GTr0vF 7pa0t3spLhuwOuHwtlxUzOan5XlZ2P6E3GMtgz/0Yu k6wsCz82OTiFxPOwDDrjTycayivOSnz9Ubr5J3TePouttt1tutvMOjM/o2tHoKybcrpDSK04dxp2QmYW wF9rJmIn0uqx2aAVCB9fB3fBewargnJt4+rsbGz8/5A13d8XyVF6qvPwVy6fY3glBJdU83tCbkFi7V+U FAFumAA+9HujwozQXeptCIFlnGHBo/Zcg3jZggp3Nn ctb2aIN/plPNRhyjLJvE11HhM+cfB8Z3gQmytZJriZpN83c6B00ofApgFfcxtDWGSd+Gtsq9QPQgpQyr 5+lkuYkRZbvH+ls+cX/lWcmhcgKHXTwhjnZ/WwarmXqarj4+siq/kBeDeJC9r3KsII0/WkYoQXEMurL7 OePipfZ+mZ+/Rc+TGYiu52D3TclXlDcspX5X3EI+building construction professor [file] HjaT0DHKG+Tyu/JnW7af/Nina+Marco [place]/jmQeolcDz+i/o [file] FINISH MOLDER/07M39xw9DBTkR4AWEDiowRyB/fnD0c+RD3dBj+ [file] LR7lZt3p5/microwave remote sensing scientist/ylUrvHRA0t7jGiILlZiXyuwM/KTc0bqEdgu793fMK+5bwLV/7l9bI2n9lBzHh81cUF [file] R0k29iKYvVXCCTw6VGqTS4+cgiUb5PAu9dxFwqHp5IbU8JjDlG5N5LAcf0J5Yedh+q9Mk/asphalt spreader+Ai6c36 [file] tqNx5Wvy8s1U8mA1FGjgTHtwDM7ftnJZfxB3/EO2CqKTa0eeMkFhBQ7Ip///29GIY5kENbKmG7/d 81thBVaEQkeI9cu7/N7C4BTZFK9M598n9GQsc0LV0q 5QII1wtH02AOtqvp7FAfIp5hR4FFBA7OpzMPqWwbi5PyY+7qh697Ln/3pmdSi37k9IYMkmRsuchn7NNq vLZaoa/obP3pFyRpUJiCduSsY5j9YD2I4oKDp+gVMMTUXWI/ED/TMxZZKsECn1+rhHXiHlYpvejOV+SENIOR LABORATORY TECHNICIAN [file] xhfV7+fZ/3e3ocr+pswpr9U74KtMUpib6J4RVL9/FLAP LINING BINDER [file] lDmRsJRMYj3kzAUfBQnToImDZuCieInqu7JuOtLumr0y+12R4a3kjeDIqzOUt3ZUF52XNKYnFrco/PRICING STRATEGIST [file] hK5p8JW0vEXI2+UlREHBZiBcIU9abi+Winter Intern/Mhn7ljjBHsqShRpN1Vvm190teHGdurgs7g34+NDoJrkir [file] /resp1U50n0HuTkYVTIjlioa+lSxWr77dmko89/Jose E [file] qN2CJu3bEY4dkr5zTiC5z8TXkZDxg0NKqx5vlDarKUY8Nym6FcQC3f+FLAP LINING BINDER+8NmGR+GOuHfBwjQavfks7r [file] i+ypngbshYOXPBA7ijcM3OBElDjzou8r/X2ntSPTybdBetY7j/GTpj0Ixxe+bdY7m+MASON/dwhmWpJtcI e50gwY11pnuh+MmfZEqjw3jZSZJ8hWcGhG+MFLfPjiaw97Mg9AI1OADEOmpD2oBCgyr+BY8xRq457lW6 m2CU0m2eVu/69D/5ayCrbUpXctf/LZpfHPAHd/5IDO uAOz9GTTEQ611VI2rDoT1/PIB9bJuk01DG22ka/4dr9ikV+YYZ5yTgmhNdTWZ0wMHIkFY7yUwuLzfOxK T+N5XTkrIs35hYkWz565Y6wEbQn0lzRCJP+3zXRnHJeJFOm3QjsCz8BKEMyR4JkAirni9BxFWXrXMQUu UxcrwMYNlx5bmC34q0UPY2qz2PNngFU7yhS/JqSkrg aWAR9j5Acz8zMQts+ltoRUQVKN3e5ogZ47b5DcKwd6N/nEjFC/OHW2wEGogrg95XpTxT57WXk2erxHb2 hlyDC7hgNVOuGggfB+v8tIYcY6KjuiuyCDNBVuz5jbG4ats69ysyhZ8GOhm2ArZCGGRMHY//fpyfz/pmo analyst 9a6ZxYZZdhtGk9jTcPjtxeZfNKtlVgSudLzxdb6Tl2 Z7pb1A1fMyvALJg6RJEmiW95d438++JksoogzuguYDV/STEPHANIA/y52U5zps7REOUg7x9uEqtvNqD3C1DsLH [file] QEkDqL0L2ET3N6Q13seo/8sVWaKJv9/Sandra+cyFg6HE+I+T1PjcPjuX/svFu3QCXha0sCptn9Sg/LGESI Q5T7+NdWv+TneekmIfOniHD/OyLC/1NEXgoEo+a15Gslo/FBerjZ5udB2ZDFCOREO153iziNU8DSkFc5 TYS5+skvzRT9AgYr1vnZBGRcPHxX5kA0IRn9tmlbLA jMhB7vOq1dWe1mbeKKRbwSo0Qa+x/FQCCY+QQ16CupNnJd27CgzNNP3+AS3tsXQ/iix41QitQxgEJsKL hmBaYxScIRs9H0d8ZKOefv5uxy1DEHqCEtHUgMLP7rFXBfSZdhccEtHAWnp3D2tyUcJrK7CVA4WvVfwq gnij0o1JkOpJtPU0JxLj2z3GNi//CUeEt5xeVouZnX dvuvEEigV2qL1359lHwPpqwE/zkWaKd90HLXxR1f7Pos8fdB/wK6vnCnZUlkIhV2y+t6sKVUwlLu95WI +q/L0A41pkKYDrWQjz4y1i7yR1EC97PdCKc4JhDVJaZ5oDdfm3JBke7Asg3sydYtEwBCC1SvtT+A7CXH e+jNr6VAbjq1yjkym9xVU4eQDT5jzqouk1xNgxfTTh jPXUbpBP1V7g6ZgJ3XaDcjyuYnx2LcmYDSRbeW41SZqcpDD5VV7JyCHRru+/H9HHh/VrEPvdqr+pjX6z Du7xVC5sPIrYyN9t1sHz9qe9S63VoRj3vddm6StCX26vQaS8U1vw4nn7xRayXIdQk0Xo+Catering Truck Operator+zRYyn5UN [file] q8aq0sufJmmfQADqOnQvSwRpfDo5B2lCXXkRHGcdOoB0UTaQwn13pumuZaennJzgpWGLCTM8/eB6N/building construction professor [file] ODGfeLDO3IOM1bt8OpHEAaLVmcpfMwUtbJIUmlxKRygKznMEUNSdNtCiT4FmQCTaBtYJ0C ID Date Data Source [id number] 11/25/2020 12:04:00 PM EDT [facility] ([facility], ) Name Value Range Interpretation Code Description Data Yolette rce(s) Supporting Document(s) Antinuclear Antibodies Direct Laboratory test result [facility] ([facility], ) Performed at: [facility] [id number] Business Continuity Management Director: Devante Nuñez MD, Phone: [phone] Performed at: [address] [id number] Business Continuity Management Director: Melissa Guajardo MD, Phone: [phone] ID Date Data Source [id number] 11/25/2020 12:04:00 PM EDT [facility] ([facility], ) Name Value Range Interpretation Code Description Data Yolette rce(s) Supporting Document(s) Pyridoxine [Mass/volume] in Serum or Plasma 4.0 ug/L 2.0-32.8 [facility] ([facility], ) Specimen Comment: Test(s) 054700-Ldexsff E(Alpha Tocopherol); 124747- Specimen Comment: Vitamin E(Gamma Tocopherol); 884957-Ixgfhbu B6; 403800- Specimen Comment: Vit. B1, Whole Blood Specimen Comment: was developed and its performance characteristics Specimen Comment: determined by [facility]. It has not been cleared or approved Specimen Comment: by the Food and Drug Administration. Thiamine [Mass/volume] in Blood 102.3 nmol/L 66.5-200.0 [facility] ([facility], ) Specimen Comment: Test(s) 252054-Lbnanwy E(Alpha Tocopherol); 111798- Specimen Comment: Vitamin E(Gamma Tocopherol); 271108-Dsnylat B6; 480490- Specimen Comment: Vit. B1, Whole Blood Specimen Comment: was developed and its performance characteristics Specimen Comment: determined by [facility]. It has not been cleared or approved Specimen Comment: by the Food and Drug Administration. ID Date Data Source [id number] 11/25/2020 12:04:00 PM EDT [facility] Name Value Range Interpretation Code Description Data Yolette rce(s) Supporting Document(s) Vitamin E(Alpha Tocopherol) 10.2 mg/L 9.0-29.0 [facility] ) Vitamin E(Gamma Tocopherol) 3.5 mg/L 0.5-4.9 [facility] ([facility]) Reference intervals for alpha and gamma- tocopherol determined from National Health and Nutrition Examination Survey, 0941-7015. Individuals with alpha-tocopherol levels less than 5.0 mg/L are considered vitamin E deficient. ID Date Data Source [id number] 11/25/2020 12:04:00 PM EDT [facility] Name Value Range Interpretation Code Description Data Yolette rce(s) Supporting Document(s) PTT Lupus Type Anticoag Screen 1.1 0-1.2 [facility] ([facility]) RESULT IS LESS THAN 1.2, NO [...] a specific inhibitor. ID Date Data Source [id number] 11/25/2020 12:04:00 PM EDT [facility] Name Value Range Interpretation Code Description Data Yolette rce(s) Supporting Document(s) Rheumatoid factor [Units/volume] in Serum or Plasma Laboratory test result [facility], ) ID Date Data Source [id number] 11/25/2020 12:04:00 PM EDT [facility] Name Value Range Interpretation Code Description Data Yolette rce(s) Supporting Document(s) Folate 7.3 ng/mL [facility] ([facility], ) FOLATE NORMAL RANGE NORMAL GREATER THAN 5.4 NG/ML INDETERMINATE 3.4-5.4 NG/ML DEFICIENT LESS THAN 3.4 NG/ML Vitamin B12 Level 445 pg/mL [facility] ([facility], ) VITAMIN B12 NORMAL RANGE NORMAL 247 - 911 PG/ML INDETERMINATE 211 - 246 PG/ML DEFICIENT LESS THAN 211 PG/ML ID Date Data Source [id number] 11/25/2020 12:04:00 PM EDT [facility] ([facility], ) Name Value Range Interpretation Code Description Data Yolette rce(s) Supporting Document(s) Thyroxine (T4) free [Mass/volume] in Serum or Plasma 0.83 ng/dL 0.76- 1.46 [facility] ([facility], ) ID Date Data Source [id number] 11/25/2020 12:04:00 PM EDT [facility] ([facility]) Name Value Range Interpretation Code Description Data Yolette rce(s) Supporting Document(s) T Uptake 34 % 30-39 [facility] ([facility]) Thyroid Stimulating Hormone 2.290 uIU/ML 0.358-3.740 [facility] ([facility]) Thyroxine (T4) 6.3 ug/dL 4.5-12.0 [facility] ([facility]) Free Thyroxine Index 2.1 % 1.3-4.8 [facility] ([facility]) ID Date Data Source [id number] 11/25/2020 12:04:00 PM EDT [facility] ([facility]) Name Value Range Interpretation Code Description Data Yolette rce(s) Supporting Document(s) Albumin % 57.3 % 55.8-66.1 [facility] ([facility], ) Hgxpd-0-Fiyymjsd % 4.6 % 2.9-4.9 [facility] ([facility], ) Eour-5-Tuzuolaxz % 5.7 % 4.7-7.2 [facility] ([facility], ) Xjcsf-9-Xrdxvmtap % 11.8 % 7.1-11.8 [facility] ([facility], ) Xlyv-7-Iezixfjda % 5.5 % 3.2-6.5 [facility] ([facility], ) Gamma Globulin % 15.1 % 11.1-18.8 [facility] ([facility], ) Albumin 4.24 GM/DL 3.29-5.55 [facility] ([facility]) Smlgi-4-Mofmejlug 0.34 GM/DL 0.17-0.41 [facility] ([facility]) Ilinx-6-Fvzpurlyr 0.87 GM/DL 0.42-0.99 [facility] ([facility]) Gamma Globulins 1.12 GM/DL 0.65-1.58 [facility] ([facility]) Fvob-3-Fenhprgxw 0.41 GM/DL 0.19-0.55 [facility] ([facility]) Svcb-6-Gqpmgdbvq 0.42 GM/DL 0.28-0.60 [facility] ([facility]) Spep Interpretation Laboratory test result [facility] ([facility]) NO M-SPIKE(S)NOTED. Total Protein 7.4 GM/DL 6.4-8.2 [facility] ([facility]) Laboratory test finding (navigational concept) Laboratory test result [facility] ([facility]) REV'D BY Cherie CAIN ID Date Data Source [id number] 11/25/2020 12:04:00 PM EDT [facility] ([facility]) Name Value Range Interpretation Code Description Data Yolette rce(s) Supporting Document(s) Hemoglobin A1c 6.2 % [facility] <content>REFERENCE RANGES:</content><br/ ><content></content>
<content><=5.6% NORMAL</content>
<content>5.7-6.4% SUGGESTS IMPAIRED GLUCOSE METABOLISM/PREDIABETIC</content>
<content>>= 6.5% ABNORMAL</content>
<content></content> Estimated Average Glucose 131 mg/dL 60-110 [facility] ([facility]) ID Date Data Source [id number] 11/25/2020 12:04:00 PM EDT [facility] Name Value Range Interpretation Code Description Data Yolette rce(s) Supporting Document(s) Erythrocyte sedimentation rate by 2H Westergren method 33 mm/hr 0-3 0 [facility]) ID Date Data Source [facility] CT ANGIO CHEST 10/24/2020 12:00:00 AM EDT eCW1 ([facility]) Name Value Range Interpretation Code Description Data Yolette rce(s) Supporting Document(s) [facility] CT ANGIO CHEST eCW1 ([facility]) ID Date Data Source [facility] Chest, 2 view (PA\\Lat) 10/14/2020 12:00:00 AM EDT eCW1 ( [facility]) Name Value Range Interpretation Code Description Data Yolette rce(s) Supporting Document(s) [facility] Chest, 2 view (PA\\Lat) eCW 1 ([facility]) ID Date Data Source [id number] 10/09/2020 05:18:00 PM EST [facility] ([facility]) Name Value Range Interpretation Code Description Data Yolette rce(s) Supporting Document(s) Bacteria identified in Blood by Culture Laboratory test result [facility] ([facility]) No growth after 72 hours . All [...] method 35 mm/hr 0-30 Above high normal [facility]) ID Date Data Source [id number] 10/09/2020 05:18:00 PM EST [facility] ([facility]) Name Value Range Interpretation Code Description Data Yolette rce(s) Supporting Document(s) Red Blood Count 4.72 10 4.00-5.40 Normal (applies to non-numeric results) [facility]) White Blood Count 7.5 10 4.0-10.0 Normal (applies to non-numeri c results) [facility]) Hematocrit 41.5 % 36.0-47.0 Normal (applies to non-numeric resul ts) [facility]) Hemoglobin 13.5 g/dL 12.0-15.5 Normal (applies to non-numeric resul ts) [facility]) Mean Corpuscular Volume 87.9 fl 80.0-96.0 Normal ( applies to non-numeric results) [facility] ([facility]) Mean Corpuscular Hemoglobin 28.6 pg 27.0-33.0 Norm al (applies to non-numeric results) [facility] ([facility]) Mean Corpuscular HGB Conc 32.5 g/dL 32.0-36.5 Normal (applies to non-numeric results) [facility] ([facility]) Red Cell Distribution Width 13.7 % 11.5-14.5 Norm al (applies to non-numeric results) [facility] ([facility]) Platelet Count, Automated 233 10 150-450 Normal (applies to non-numeric results) [facility] ([facility]) Neutrophils % 67.6 % 36.0-66.0 Above high normal MEDE NT ([facility]) Lymph % 20.9 % 24.0-44.0 Below low normal [facility] ( [facility]) [place] % 8.2 % 2.0-8.0 Above high normal [facility] ([facility]) Eos % 2.5 % 0.0-3.0 Normal (applies to non-numeric resul ts) [facility] ([facility]) Baso % 0.4 % 0.0-1.0 Normal (applies to non-numeric resul ts) [facility] ([facility]) Immature Granulocyte % 0.4 % 0-3.0 Normal (applies to non-n umeric results) [facility] ([facility]) Neutrophils # 5.1 10 1.5-8.5 Normal (applies to non-numeric re sults) [facility] ([facility]) Nucleated Red Blood Cell % 0.0 % 0-0 Normal (applies to n on-numeric results) [facility] ([facility]) [place] # 0.6 10 0.0-0.8 Normal (applies to non-numeric resul ts) [facility] ([facility]) Lymph # 1.6 10 1.5-5.0 Normal (applies to non-numeric resul ts) [facility] ([facility]) Eos # 0.2 10 0.0-0.5 Normal (applies to non-numeric resul ts) [facility] ([facility]) Baso # 0.0 10 0.0-0.2 Normal (applies to non-numeric resul ts) [facility]) ID Date Data Source [id number] 10/09/2020 05:18:00 PM EST [facility] ([facility]) Name Value Range Interpretation Code Description Data Yolette rce(s) Supporting Document(s) Venous Partial Pressure Co2 49.8 mmHg 38.0-50.0 Norm al (applies to non-numeric results) [facility]) Venous PH 7.386 units 7.330-7.430 Normal (applies to non-numeric res ults) [facility] ([facility]) Venous Partial Pressure O2 38.2 mmHg 30.0-50.0 Dipti l (applies to non-numeric results) [facility] ([facility]) Venous Total Co2 30.7 meq/L 24.0-28.0 Above high normal [facility] Venous Base Excess 3.2 Above high normal [facility] ([facility]) Venous Hco3 29.2 meq/L 23.0-27.0 Above high normal [facility] ([facility]) Venous O2 Saturation 71.8 % 60.0-80.0 Normal (applies to non-num juanito results) [facility] ([facility]) Venous Standard Hco3 26.7 meq/L Normal (applies to non-num juanito results) [facility] ([facility]) ID Date Data Source [id number] 10/09/2020 04:53:00 PM EST [facility] ([facility]) Name Value Range Interpretation Code Description Data Yolette rce(s) Supporting Document(s) Glucose, Fasting 110 mg/dL 70-100 Above high normal [facility] Blood Urea Nitrogen 21 mg/dL 7-18 Above high normal [facility] ([facility]) Creatinine For GFR 1.30 mg/dL 0.55-1.30 Normal (applies to non -numeric results) [facility] ([facility]) Glomerular Filtration Rate 42.6 Normal (applies to n on-numeric results) [facility] ([facility]) <content>Units are mL/min/1.73 m2</content>
<content></content>
<content>Chronic Kidney Disease Staging per NKF:</content>
<content></content>
<content>Stage I & II GFR >=60 Normal to Mildly Decreased</content>
<content>Stage III GFR 30- 59 Moderately Decreased</content>
<content>Stage IV GFR 15-29 Severely Decreased</content>
<content>Stage V GFR <15 Very Little GFR Left</content>
<content>ESRD GFR <15 on AFTER SCHOOL PROGRAM COORDINATOR</content>
<content></content> Sodium Level 138 meq/L 136-145 Normal (applies to non-numeric res ults) [facility] ([facility]) Potassium Serum 4.1 meq/L 3.5-5.1 Normal (applies to non-numeric results) [facility] ([facility]) Chloride Level 103 meq/L 98-107 Normal (applies to non-numeric r esults) [facility] ([facility]) Carbon Dioxide Level 31 meq/L 21-32 Normal (applies to non-num juanito results) [facility] ([facility]) Anion Gap 4 meq/L 8-16 Below low normal [facility]) Calcium Level 9.3 mg/dL 8.8-10.2 Normal (applies to non-numeric re sults) [facility]) ID Date Data Source [id number] 10/09/2020 04:53:00 PM EST [facility] ([facility]) Name Value Range Interpretation Code Description Data Yolette rce(s) Supporting Document(s) Alt/SGPT 24 U/L 12-78 Normal (applies to non-numeric resul ts) [facility] ([facility]) Ast/Sgot 17 U/L 7-37 Normal (applies to non-numeric resul ts) [facility] ([facility]) Alkaline Phosphatase 69 U/L 45-117 Normal (applies to non-num juanito results) [facility] ([facility]) Bilirubin,Total 0.5 mg/dL 0.2-1.0 Normal (applies to non-numeric results) [facility] ([facility]) Bilirubin,Direct 0.2 mg/dL 0.0-0.2 Normal (applies to non-numeric results) [facility]) Total Protein 7.7 GM/DL 6.4-8.2 Normal (applies to non-numeric re sults) [facility] ([facility]) Albumin 4.1 GM/DL 3.2-5.2 Normal (applies to non-numeric resul ts) [facility]) Albumin/Globulin Ratio 1.1 1.2-2.2 Below low normal [facility] ([facility]) ID Date Data Source [id number] 10/09/2020 04:53:00 PM EST [facility]) Name Value Range Interpretation Code Description Data Yolette rce(s) Supporting Document(s) CPK Creatine Phosphokinase 53 U/L 26-192 Dipti l (applies to non-numeric results) [facility] ([facility]) CK-MB Value Mass Laboratory test result Normal ( applies to non-numeric results) [facility] ([facility]) MB/CK Relative Index 1.89 Normal (applies to non-num juanito results) [facility] ([facility]) <content>DIAGNOSIS CRITERIA</content>
<content>MMB ng/ml Relative Index (RI)</content>
<content>NON-AMI < or = 5 N/A</content>
<content>PEREIRA ZONE > 5 < or = 4</content>
<content>AMI > 5 > 4</content>
<content></content> Troponin I Laboratory test result Normal (applies to non-n umeric results) [facility] ([facility]) <content>Troponin I Reference Interval f or Siemens Regina LOCI:</content>
<content></content>
<content>99th Percentile= 0.00-0.045 ng/ml</content>
<content></content>
<content>Risk Stratification:</content>
<content><= 0.10 ng/ml Decreased Risk for Adverse Clinical</content>
<content>Events.</content>
<content>0.10-1.50 ng/ml Increased Risk for Adverse Clinical</content>
<content>Events. Evaluation of additional</content>
<content>criterion and/or repeat testing in 2-6</content>
<content>hours is suggested to rule out myocardial</content>
<content>damage.</content>
<content>>= 1.50 ng/ml Indicative of Myocardial Injury.</content>
<content></content> ID Date Data Source [id number] 10/09/2020 04:53:00 PM EST [facility] ([facility]) Name Value Range Interpretation Code Description Data Yolette rce(s) Supporting Document(s) Lactate [Mass/volume] in Serum or Plasma 1.4 mmol/L 0.4-2.0 Normal (applies to non-numeric results) [facility] ([facility]) Y/N query for Sepsis Lactate Rule: Y ID Date Data Source [id number] 10/09/2020 04:53:00 PM EST [facility] ([facility]) Name Value Range Interpretation Code Description Data Yolette rce(s) Supporting Document(s) Fibrin D-dimer FEU [Mass/volume] in Platelet poor plasma Lab oratory test result Normal (applies to non-numeric results) [facility] ([facility]) ID Date Data Source [id number] 10/09/2020 04:53:00 PM EST [facility] ([facility]) Name Value Range Interpretation Code Description Data Yolette rce(s) Supporting Document(s) Prothrombin Time 29.0 s 12.5-14.3 Above high normal [facility] Inr 2.67 Normal (applies to non-numeric resul ts) [facility] ([facility]) THERAPUTIC HUMAN INR VALUES INDICATIONS NORMAL RANGES PROPHYLAXIS/TREATMENT OF: VENOUS THROMBOSIS 2.0-3.0 PULMONARY EMBOLISM 2.0-3.0 PREVENTION OF SYSTEMIC EMBOLISM FROM: TISSUE HEART VALVES 2.0-3.0 ACUTE MYOCARDIAL INFARCTION 2.0-3.0 VALVULAR HEART DISEASE 2.0-3.0 ATRIAL FIBRILLATION 2.0-3.0 MECHANICAL VALVES(HIGH RISK) 2.5-3.5 RECURRENT MYOCARDIAL INFARCTION 2.5-3.5 ID Date Data Source [id number] 10/09/2020 04:53:00 PM EST [facility] ([facility]) Name Value Range Interpretation Code Description Data Yolette rce(s) Supporting Document(s) Lactate dehydrogenase [Enzymatic activit y/volume] in Serum or Plasma by Lactate to pyruvate reaction 184 U/L 84-246 Normal (applies to non-numeric re sults) [facility] ([facility]) Natriuretic peptide.B prohormone N-Terminal [Mass/volu me] in Serum or Plasma 58 pg/mL Normal (applies to non-numeric results) [facility] ([facility]) Thyroxine (T4) [Mass/volume] in Serum or Plasma 10.2 ug/dL 4.5-12.0 Normal (applies to non-numeric results) [facility] ([facility]) Thyrotropin [Units/volume] in Serum or Plasma 2.880 uIU/ML 0. 358-3.740 Normal (applies to non-numeric results) [facility] ([facility]) Ferritin [Mass/volume] in Serum or Plasma 38 ng/mL 8-252 Normal (applies to non- numeric results) [facility]) C reactive protein [Mass/volume] in Serum or Plasma by High sensitivity method 0.30 mg/dL 0.00-0.30 Normal (applies to non-numeric results) [facility]) ID Date Data Source [id number] 10/06/2020 12:00:00 AM EST [facility] Name Value Range Interpretation Code Description Data Yolette rce(s) Supporting Document(s) Carestart Rapid COVID Antigen Test Positive [facility] This lab was reported by Wilson jansen. ID Date Data Source [id number] 08/31/2020 12:00:00 AM EST [facility] Name Value Range Interpretation Code Description Data Yolette rce(s) Supporting Document(s) SARS-CoV2 Rapid Antigen Negative [facility] This lab [facility] and reported by [facility]. ID Date Data Source [id number] 08/12/2020 12:00:00 AM EST [facility] Name Value Range Interpretation Code Description Data Yolette rce(s) Supporting Document(s) Carestart Rapid COVID Antigen Test Negative [facility] This lab was reported by [facility] j[facility]. ID Date Data Source [id number] 08/12/2020 12:00:00 AM EST [facility] Name Value Range Interpretation Code Description Data Yolette rce(s) Supporting Document(s) SARS coronavirus 2 RNA [Presence] in Res piratory specimen by NATHALY with probe detection NEGATIVE [facility] This lab was ordered by [facility] Garcia and reported by [facility]. ID Date Data Source [id number] 08/01/2020 11:15:00 AM EST [facility] ([facility]) Name Value Range Interpretation Code Description Data Yolette rce(s) Supporting Document(s) Calcidiol [Mass/volume] in Serum or Plasma 74.3 ng/mL 30.0-100.0 [facility] ([facility]) Calcium [Mass/volume] in Serum or Plasma 9.0 mg/dL 8.8-10.2 [facility] ([facility]) Thyrotropin [Units/volume] in Serum or Plasma by Detec tion limit <= 0.05 mIU/L 2.060 uIU/ML 0.358-3.740 [facility] ([facility]) ID Date Data Source [id number] 08/01/2020 11:15:00 AM EST [facility] ([facility]) Name Value Range Interpretation Code Description Data Yolette rce(s) Supporting Document(s) Thyrotropin [Units/volume] in Serum or Plasma 2.060 uIU/ML 0. 358-3.740 Normal (applies to non-numeric results) [facility] ([facility]) Calcium [Mass/volume] in Serum or Plasma 9.0 mg/dL 8.8-10. 2 Normal (applies to non-numeric results) [facility] ([facility]) Calcidiol [Mass/volume] in Serum or Plasma 74.3 ng/mL 30.0- 100.0 Normal (applies to non-numeric results) [facility] ([facility]) ID Date Data Source [id number] 08/01/2020 09:41:00 AM EST [facility] ([facility]) Name Value Range Interpretation Code Description Data Yolette rce(s) Supporting Document(s) Inhouse Leukocytes Laboratory test result [facility] ([facility]) Inhouse Nitrite Laboratory test result [facility] ([facility]) Inhouse Urobilinogen Laboratory test result [facility] ([facility]) Inhouse Protein Laboratory test result [facility] ([facility]) Inhouse PH 5 [facility] ([facility]) Inhouse Hemoglobin Laboratory test result [facility] ([facility]) Inhouse Specific [place] 1.030 [facility] ([facility]) Inhouse Ketones Laboratory test result [facility] ([facility]) Inhouse Bilirubin Laboratory test result [facility] ([facility]) Inhouse Glucose Laboratory test result [facility] ([facility]) ID Date Data Source [id number] 08/01/2020 09:40:00 AM EST [facility] ([facility]) Name Value Range Interpretation Code Description Data Yolette rce(s) Supporting Document(s) Bacteria identified in Urine by Culture Laboratory test result Normal (applies to non-numeric results) [facility] ([facility]) <content>FULL REPORT IN LAB NOTES (eCW a [...] FOR ESBL</content>
<content></content> ID Date Data Source [id number] 07/08/2020 04:20:00 PM EST [facility] Name Value Range Interpretation Code Description Data Yolette rce(s) Supporting Document(s) SARS-CoV-2 (COVID 19) [facility] This lab was ordered by [facility] a nd reported by [facility]. ID Date Data Source [id number] 07/08/2020 04:20:00 PM EST [facility] ([facility]) Name Value Range Interpretation Code Description Data Yolette rce(s) Supporting Document(s) Respiratory Panel Laboratory test result [facility] ([facility]) This respiratory PCR panel detects Influ gabriel [...] - SARS-CoV-2 (COVID19) ID Date Data Source [id number] 07/08/2020 04:20:00 PM EST [facility] ([facility]) Name Value Range Interpretation Code Description Data Yolette rce(s) Supporting Document(s) Coronavirus 2019 Nasopharygeal Laboratory test result [facility] ([facility]) ID Date Data Source [id number] 05/28/2020 12:30:00 PM EDT [facility] Name Value Range Interpretation Code Description Data Yolette rce(s) Supporting Document(s) Follow Up [facility] [facility] IMMFIk3pXfHJJbBlEHAlWnwNVUyiPBsnKAGbM5Y4EPbdPg7JIEernxBkOKNsEr5+JQRfHB8mjh7lUERr y [file] Oqpx4z6HXFatmmxMElxwLn3OY87vEPcu5Pwc74Fh98FxZ6V+COST CLERK+1wEhO5dED5YQDcdwq20scPCyLjVR [file] G4SesNvMhy6x5eO1nNX8Cnq2+radiagraph operator+H4C79p0+Z6bhgE3CLYU15jDjoMYhTWsT2xyts5oNvHncy1lSo9b [file] coordinator/XC [file] 9KtHA7bOMrzrJjBHzWuesYqvFlmTAq7ukaPNjYKPSd2yCGgePGauFfBofoGWD76MkDFt/[employer]/FUpQRDCj [file] SUM6Dr3vnMCREu1FYdKF2rK4ujhI2/mary lou+//YY49sv [file] PwmoRXDZLvFFEH/[place]lin+OvVoDxH9HJ/foOWLzMW+Gz6vGdDxFDEaUGt5ga3u3YLEHWccn0rPrax4tx2B EZHt1Mh6qrkbwsJ6WL6iUorSlEUo7Tu3HMeG2JIZlq +mwWrqck2PrivWmvt9/3xKqs+wylbQk2rmeXPUxvrucshZQJZuiBF+wR2xM/qRQHQEKeFaVYwE5IcEQn UG/yRUNOkAUu7G3lS5MExbJujQ8Ln/nqaH7++4fWYp9rWXNj/v+Zar8gW9fQityzMdNjzsLQeh9HVms5 A4S84thFgNeyQwFwslDtwnNkUIuiuc2AoRm1hZWGWB GfO9qxgnWGKiN3lC3TgkC5yq0ps+8+nNXnoHJ3BnxNz0M74Fk4qEEcpQJFRhqVCiVCZfR/utmm6KYlqc 7Y0yAb1lcUgf/tDxY91UgX9XxNGRfQhv1Zsmoqyk7XCGsANapam3yMSMiP2OQUtYZGTsR4exUhOG8iO8 EzvfudS8/ChIE8o9C7m0j3WOrdFR5Ptx4mYus47Hmf mxqMoIweb6o4z4ITwqp5pKKQu5D9N1XjwCYfaDTD2A9hDaeyOSwS5jZZrDxXxbK7KUlrMBSXMCgceBAO aYvoCrGdbLV2dIt7PeL1lX9FxjOuaR9ejxFgh1WhFZBvdWvB2Cve0gl3U3WdpUxr2w9fGE0I73DlQF0+ JJRGYY/+/UONECGYoSHr0pGUd8ZSkxiUlyGozua/zw GekKtpYpOQzUpg2nlRUuotTHAfLtAsaw+VG4LiHu14Cm8rPO5osNAZMd+2Z9DJSwjyWCvYoP8Fnwvxf+ jAXI4C58aSxpOW/7RovtyMcQ13Zz7UiZ6mdMSupMtoCKDFOHSuR8VrQxLBiEJPPkH8/xPtEw1ISLdhIQ ccpye7HVRqJnX+/CtFhUqkXiiM4aJRC4HTkPqGyNy3 A37zKjH95K+PnkwOR8low8ZXH00ELpFTLPt2A+kxRo6BW+MgQzYJdq7HfY4xOph/UDs9jRhLYhfFCfZt lpesKkOk28D2z8NayEl3A0kzll/t9fqxn39pbfk/UsHvsMuis38/Valent[place]+VYCyec9l+PFTp0aTAwoU5mew [file] NUOrpS5QEmUFHucFGdYPS1uG3cOCga/A3dBqQFlGsREsHATIVe1aynWFn5CCGZ1di1Fj9nIeT+pmo analyst/Vbq [file] /oUKHipcq2r704kOPJp/xaeY2he4ya6oXrHPkM5Y48Z48NQLiQvn3whY/toll gate tender+TyrltZ6evYgin+abl64 [file] tlTcWtt7jxLco2v0+OZZiV18h+M5nR/ykkuiLbG/SENIOR LABORATORY TECHNICIAN [file] production [file] V82Q1CGeg6HxOohg/José Miguel+9mM/fe+3+C2M6ZqtRS1zLwyGhceGHZSEIwiGWD8duifUStJvxyf2v4/Wzls lXUJgzqLmVA7lXeoOCG8W8sIOwEM4AoLAQyDK8Gxcl EjdlCt/3hIC566+16ckLlSmpsc8UK8dmIG2zbNgkDPgrJeO19Cwph/Iqrt/nlYIA8uNkEBFYQljqhcj5 fk+CidI7aWhGMkTPt1rV4hMDAq3JhDKVa76aLd9LKZe9aqsyzv3Eve6kcqJngNB0TGJ1wbyMQCPQtG+b qWnnP4X8I/ix5VxQucWNIkDkEsEpgPoFivf/baguiW At0cgsJ3AENyGtv1E3D/iBvWL4jdqYuoASh9RtPjia6rqyXy2p9hVfB57X2ZiNcOjVb8ytx+NGnXNeMS loeXgqQYlnHneKkULIcMS51mRe2TBZIGky3Zupi3JqX8WVZhkxjwrt22Jdvxoc/7LaQ9Y0Jt9ex8Wivq +eAelMk34+wcmLFt2G5ZHwtYGYq93voLI+Bld13W1/ WEcmqs1csOdCktIz44n5Fc/doFDw5x0IsZbzKNGy8fnQQWVG2ahbb5yR3fmjlRKZeHTYMYNbQrW9+UZD /José/DANRxjWYjB2Nk+GW3UlHvSGKWxnXHqrABWFaPDQ8s13Oqa2LgTyHBh8U/G2CKpPmnVYRHehS3kV [file] J47l+Snf+kEvI0zPI+pmo analyst/PJqjA0p8aoVVQml5SakGdEbW8fJEONyQJajq6LSkIl6NtqalDDn0Buusafx [file] IvC5TUf6kkIQXcpYr8zU7H8XgtpTTVWO1hp+jiGmEGMODLpu3rmUtS5rQg+0uhYT57fVxudhtgZ92+building construction professor [file] cardiac care unit nurse+wQ0ZX8RnKYzluYMzwNVfWV+AZa5oVxyUT8gJ9O [file] hVmi7JqzBMqunS53iaei7l5chloB4J+UpOE5Hc/line palletizer [file] g+nDadJfr1CMF8qIeWkCh8erpjocTkoa6fDgi TLhevH/C1TP7NwEV7UJDRFGbbv209E2Uh2KaM7kwFr+7b1WAL1Za7QH8yN3MQkgmGO+/EuY3GSVwHpE/ GHZabKZTyZAj90rEsDbFne11/YgpsB2D/VdQ+7tMjb8WxA/1f04V3Hzo6QUe5LFvcyruAgV1vMDe/3e/ ONCVYSdMOXQaiLIcGOTBG09V3kzgr/65Wv36J+kF0k I3ZNUtFQmuCC8+1Hw+4C276SwubjvrzuzNewndhStfOUe1Oz6b9cRHKCw3Yjp902b8n4Luia41h6t7uE EvahlaR3rk226EpVPciNCrJ8yCwya1xkUHZ+it85eOto1rY0jAdKeH88N9qN5HqH/s0nwlFh9tOrdEWP Jacob+osmOyPbNhnOWttPIqCx97GrV8i6lV5CPyQJlYzU l58nJyFQWM4ftFTktf6r593wvRTFG3W+rknxF+7BLgloG4Lgv6oKFlWTKDY2NMhCefYQnOSgHWu5hgd1 8ECEX0m3RLkHnJsPOCFzfA7zZUvxgmYT/YWG2bX04SjyPNEM73eUMTFpUcb+ckhfGe2HPSVQYq8pja/R nVdhxqB8hyjf0/hb80k9YEG5ylXBmRe9NROxKoXU1c UsqcDpb7k/HDTItPSaiqcRynyQ9trN1ZNU/h7xC4PjnSCPQwMlOdmRhAL82x0nYwXCjOFfDvHVYdrFqx su1ilPR/Z+hPa3j47xolizBWLetoyRErJb1nDb4XyVocdW1c0fECgOPkwzlFn+JwsYr1vcMAOWBmbqMj 35/Zs6JQklw681KRj03Dw13b01tRrxS5Jsfq1idTZ7 [file] V5unCemvPpSDapu9eWV470z2Z4j+Catering Truck Operator+ElZmtX3FtbhFkjGs5zs4r/9E2mVNslmlPTTqdVEf4Hr9Wy0ZS [file] xgJcbof2aNiQRU+Chaka+7TLLIa6snW+XIVP3gAiRNRVi2ISGkPcHe3mzJaCDz+WMJs/BIdtW0PRFfmeTK LiigUUdcycUm0P049Hi/N748+OgR2rgPEBwgjlSkzC QgTI6SMI1bb5EaFTA6VLZoj9VaRPv2Q4aelaf6fTRcVC9+f8SnYYMpDEmoFuDlIhFwKIJnWwtpNBKtZZ CkeMkbMQ2fQCHDfvvDTUjdpfXawFYfQD8NOC9sa2CtGVD6EQJaz3XxRTa1H0EogQCuegNlPsjjgLTBBB FhMCElDYSjL5VtCXjmY0iPMTk9GRZyQnY6GhILEUoR GvH5GEHmVRXmQgbVWjl0VNNMWrv+ZWd7QxP1RKh9DPQ2TGYHHQOMJSH3WqJnJUB8LQQ8VGBvBa0hC6Ov t2CuJAOpMXTmWP4uycEmYDZcRz8ZdHfxGQE9E2I3bZQpZ4fBCUUhRmSwSSI3BRItEx0xxYBcVQ1MBywm O4RaWLDzRKZAWLNONlb+HJXXmZUxR8WaBgkNNy+DyH PaQJLjoQ+WIYerB7tDJV2L8LLCNimQ0uDHqrzhSFIHKGG9nK7kHTnrodYfsVAeCR0PMsSpFN9kxb1LMn S2UQG2nSVwOe0BGDolXTa4WNzrMFTZMm== ID Date Data Source [id number] 05/16/2020 08:57:52 AM EDT [facility] Current Problems: PERSONAL HISTORY OF TH ROMBOPHLEBITIS (ICD-V12.52) (ICD10- Z86.72)ROUTINE GENERAL MEDICAL EXAM@HEALTH CARE FACL (ICD-V70.0) (ICD10- Z00.00)FH LUNG CANCER (ICD-V16.1) (QSN05-Z51.1)FH OTHER CANCER (ICD-V16.9) (UDU82-Q16.9)FH STROKE (ICD-V17.1) (IEM86-J71.3)FH LUNG/RESPIRATORY DISEASE (ICD-V17.6) (SBQ85-G34.6)FH HIGH CHOLESTEROL (ICD-V18.19) (DWA86-Z39.49)FH HYPERTENSION (ICD-V17.49) (AOY82-W76.49)FH HEART DISEASE (ICD-V17.49) (ICD10- Z82.49)FAMILY HISTORY OF ANEMIA (ICD-V18.2) (GCA25-U34.2)FAMILY HISTORY OF ALCOHOLISM (ICD-V61.41) (CXT28-T33.72)OSTEOPOROSIS (ICD-733.00) (REF20-X13.0)HY PERTENSION (ICD-401.9) (VTK01-V38)G E R D (ICD-530.81) (TSJ05-L70.9)DEPRESSION (ICD-311) (KAR38-I58.9)ANXIETY DISORDER (ICD-300.00) (NSQ86-K65.9)Problem list reviewed during this update.Current Medications: CHLORHEXIDINE GLUCONATE 0.12 % SOLN (CHLORHEXIDINE GLUCONATE) Rinse for 1 minute with 10mL before bed; Route: MOUTH/THROATKLONOPIN 0.5 MG ORAL TABLET (CLONAZEPAM) hsKLONOPIN 1 MG ORAL TABLET (CLONAZEPAM) 1 tidDRISDOL 69895 UNIT ORAL CAPSULE (ERGOCALCIFEROL) 1 tab po [...] MG ORAL TABLETKLONOPIN 1 MG ORAL TABLETDRISDOL 15882 UNIT ORAL CAPSULEDULCOLAX STOOL SOFTENER 100 MG [...] rce(s) Supporting Document(s) ID Date Data Source [id number] 05/15/2020 12:36:00 PM EDT [facility] ([facility]) Name Value Range Interpretation Code Description Data Yolette rce(s) Supporting Document(s) Urine Culture Result Laboratory test result [facility] ([facility]) <External Comment eCWMed> Laboratory test result [facility] ([facility]) FULL REPORT IN LAB NOTES (eCW and [facility] ). ID Date Data Source [id number] 05/15/2020 12:36:00 PM EDT [facility] ([facility]) Name Value Range Interpretation Code Description Data Yolette rce(s) Supporting Document(s) Appearance, Urine Laboratory test result [facility] ([facility]) Specific [place] Urine Auto 1.013 1.002-1.035 [facility] ([facility]) PH,Urine 5.0 units 5.0-9.0 [facility] ([facility] O B/[employer]MENT [employer]) Color, Urine Laboratory test result MEDE NT ([facility]) Protein, Urine Auto Laboratory test result [facility] ([facility]) Ketone, Urine Auto Laboratory test result [facility] ([facility]) Glucose, Urine (Ua) Auto Laboratory test result [facility] ([facility]) Bilirubin, Urine Auto Laboratory test result [facility] ([facility]) Urobilinogen, Urine Auto 0.2 mg/dL 0.0-2.0 [facility] T ([facility]) Nitrite, Urine Auto Laboratory test result [facility] ([facility]) Blood, Urine Blood Laboratory test result [facility] ([facility]) Leukocyte Esterase, Urine Auto Laboratory test result [facility] ([facility]) WBC, Urine Auto 1 /HPF 0-3 [facility] ([facility] Dean [facility]im [facility]) Squamous Epithelial Cell Ur AU 1 /HPF 0-6 [facility] ([facility]) Bacteria, Urine Auto Laboratory test result [facility] ([facility]) RBC, Urine Auto 2 /HPF 0-3 [facility] ([facility]ak alvarez [facility]) Mucus, Urine Laboratory test result [facility] NT ([facility]) Hyaline Cast, Urine Auto 1 /LPF 0-1 [facility] T ([facility]) ID Date Data Source [id number] 05/15/2020 12:00:00 PM EDT [facility] ([facility]) Name Value Range Interpretation Code Description Data Yolette rce(s) Supporting Document(s) TP Reflex HPV ASCUS Laboratory test result [facility] ([facility] Browning [facility]) SPECIMEN PART------ A. Vaginal, ThinPrep Pap (Choir Leader) CYTOLOGY HX-------- Other Information: Hysterectomy FINAL DIAGNOSIS---- INTERPRETATION: Negative for Intraepithelial Lesion or Malignancy. SPECIMEN ADEQUACY:Satisfactory for evaluation. TP Reflex HPV ASCUS Laboratory test result [facility] ([facility] Browning [facility]) ID Date Data Source [id number] 04/09/2020 01:30:00 PM EDT [facility] Name Value Range Interpretation Code Description Data Yolette rce(s) Supporting Document(s) Follow Up [facility] VFCFMp9iHjXRNrNtHICkFqcQIObyZElyDNJaH8W6UNykVa1LYNonibOzEGKvZd4+NHNbMK6lsx9rHXTk y [file] /SENIOR LABORATORY TECHNICIAN/+pVcK4iNFrSp/7y/ZkIubmn9SDXmXy4N5ZBjk/Gtk+/u/sGB5vAld/hTP5jtYw/Bcaio+dxWl/uN qv1hiNNVCp60/+DuLYPiar5+2AYFWZN3uzLAbDyqEJ mUVAA4QCaJzjJSEHZyHsD0MZW27Z8S8XBfb/tEwYqSzDZ3c42aqr8k+9b9cD+3fTCTg1moid4ler70kx Xr3Xv9+vI/Wrn+gjxiZNiygGStOLE88SPpp44f0ODn4ifTxOwVApjJprVLMN2oJCmGSsfA68juDqyvp0 D4verBvphmV394N5Dt4UtZpsAdgolOcl7I8BjgCI5H IOHhkPs2A4+NO3QiTZkylKV5DnbumFbR5Ris78sVU1pG0lruMIgkAaJ89tnY3pAssW+AJpkRxWZOjBBO yk12o8nNYilOI7F8nn8N2gs/OAfcn4NG9phQizWHsnzQ6IpZPFISFB7DzaW6KxMtDb5qU81kJp90ad43 lp+iZ6h1o2DUfufRWGae7pY6sS64Q/RmyrSTmC9lKX 6D+XFxaSc1/M0skmg21JU+g+NTpy+WGkP6nlgV+IWerEYX+z0ZRVXrbxQGa/SM0k+xsuhbnN/SESg+D+ //SipKilyKPOG2hSJZq2m6I93pgy83TFBlhzrtqGmQzjzww0VRqN444BznZdiG2G8lwKFz4os5ms3GiZ 37jGNpNmfmhWx+HQ8Lnz3BzKCvRNEMCBpcVDCaG0GS JOCwvXjM8K5KpWDwGfew0ofq4u6//IfsoL//K2BHOu5872wt1alja7CaHLwvKT+dVbIlRxrfi5g1bj35 AC3M5w0FY23Ojezp8ZP3rkc5i8pRfMXSrUmObxZprgOTH0yr0gzJbhbj/OIIyAfsxgjHf4BfRYvlxP27 sthhLN2g5mjbdRE4vVstGNUvEDJtgkSR+gXVk3bDyZ V52PA7df94YWTo+fqMrm2j/srazALUOuV9zbU5JpK0q6hZLaWpD0qu5Cx2QiI7+JyI+Kai9t4nm1+julito nnwdRw+wL94PiqbqWvjaKZODhft6jl4gC7zl3wev3mHbEQZBoQAUdjVx6W6e9Y9p+QrpqnOS+lqr5Q1y IfY6gjZGhgIAjNxXEkaD5OSlmKJ9IO32XjlSZuU1dU tT+4ASerZRLyhnWVV17JZ3PBhIMU1AKYEpilX0ypqbXzAokuBV63hm2UOhV8ZPqbjIL3MSaL2wwGqWdf rh0wsOaELOlapz07eHP0UiR495sg9zOC1uervzQyvHPBdnEg6UsDlrj+MTkF79hg5LVlg5HhLHcgpRTD FThb6riZCebTaMkffOznUNy0u5hEqu4pYeXmFA6fvt abtgAfkcjNrK/RIZ4PgSd1fxcYO16A8r9CdB8pRliJ42pdfeB2gt8iGnkV3qtoiGg+0yq6ekeC6YitQY 8vXVXu0LJtC5HaqHPlqi9Bu+eQklg129rFl7aBRjRd/UTRhCjdNBAXGUvlcY7dVuEX/Wfx7/cNVjeQ0o EDxI6dsqcXkotz91paewmv5Yo2A4ZdqIkgyrtq564g [file] jZJnwzEeDrWZaMVUXZQM+Tj4BuPsiTc3N9YCx8Wgt/6labO0g2oMk+d5o5fJzQ1f+bNerhjfRZ45j/FLAP LINING BINDER [file] f0H9Kdn7DoRiGo1tJNGDTPOzhV5O1uIU4fjnhS+government property inspector Oq8m0UKAkYC45D9CeRdvrISyB0tLN3roM/U3I1lKjuKRb7MjSd5ZQLkxTUpq7l5IonU7ul/Zp76INGbj 9UzRSKrQ0j9lwqCv/MjoS74MG6x6XDp2QQwnsn+0AfTz2h+oGilC3kuskTfi7v+X3O/wRCY6eRpOndJt fJeE4VEEtc0IwRt7/Fvjhrq6rFH7Z5Dz5PWs/T1gMt ri4A4ifMYt0vI/od2/+u+nmDQvMNCjR73IfxBAFmP2YluJkagl2ROfirBz90oB8suUJACQiFl6Rofc+R VjlRiwawvITkpHjYL0vo2OOnptGYr+UWEHCRBWTD8UmfsPMjJ5CNz2211K+7Er8U9YGkoqcUdEsJrmR5 HMjK5I6qZcZ+wFnpUXcpah4Gq7HNhbw5JzARFRdxtE SZtD2UXpzeJMgxBop+bAz0MOWbtyeEEQfJwsOm201kV5dkZ9XelooT5p9IfkwcxnjiZZI7hPiVgsroX7 Mgs4kFoHOMY071XE6CtlRUwPyK+DPINHHhUzb4541E5pcNE/nd+DA2J8rxs5b804H9YCn7n8Cv34HHDf /WLgDG6FekdCuKI/MPUm6mLr//DSKj2CbC6yDomMvl Y1lDsBiV48FRjL9+3C4cYt7PTyhI4EYenvFdg2gvZntUdRgDkGhK9llZ5NbkgemgABDugi0NYmFEzIr/ lDSnAWSFyhiye/S2aVLyk6J95AvjL9FO0zyiDPvokN1S1OhbtxCr6ZA1IXzXNmc/04/27OfMxfNEOcngT [file] WayK0iQ4lp6VS0Kzg/RqgjAA6jjN84bN6qJ0E6++pmo analyst [file] aUubzQYPZVFiZSv3sK9vbossIgrRioPX2Ryky1au0OX0CEczvxOGyT++j4/E+FLAP LINING BINDER/Y2gXz1Odq0ERnnxo [file] P+Valentín+j3siI4ehLklaSfEhW09+p2jW6Iz1KHUq51DP [file] lYoSWZM2uWxM/Photocomposing Keyboard Operator/JG4Q8ztZ9aZR2J3GXERxjBferyzwfG7Is81i1WMffvDQgKVieUE9KLNneU2fTVc [file] 2amkkBQ05oyyba5LjEE/BmajibLOawmsIjxkiHuWKv wBH6hGyC2l9tfYuXvL0GX0pnnKaj9/xozfylu0xLc/607YwNlecNSVwHPkiNmj/dh/pyVYfoOIZRCedg DivyyooDwdXi/fwmleqZ4aEgscu9PwOm6B12utPW2vFh3rWnGuD98xr5m2CTjHPjGRbb+qL9XqmvnLF8 ybM1xtH2ItW5ItYkV0TNakLZ6louV8f+L4X4nzvnYN si5XtwzmM2urOJwnr1W9yj0qVDWeo2f5ycxxFWT39kkZy19Uyw2vl/bTSABc/LJMt3my3kZyT7DzLnD9 4Z42GYxi16OdEx0HvetmC0MVpMQY2YeSq85O/kKUdko5z0MdsAVr/GZ9EnsleSGWUX9L8Avq6DelLdEY WjR2e4Sbme7XbL26UQ+E8FhqkTm7t+agH+LhYBz277 qCcuvu/5al76HwFLqB2xsZHQmTcU77kvf6lmi//8yWhzdsz/wCbiYHhSD69D8ComRUDlwhcJbufuS3w/ Xpu+5/6pUh3m972Q9qbZX8SYBfTLiGxBDAg5JVDUGoDt/tKkbmAay7cndr0izBMC7XhUcMkdiAnkpfh5 swn9FFexr0+Gzr41jqGq8u/rwdlh4iz5ZMUFHIuEfu ZIkqQdghfOCLHr9HDzJGRgz4omwGSz7F/Dkg4teb/e5hyp/Iyc83rg2fozY+YWcUW1t7wzC5F5+ufrvH vV34GqNV5Q0z4WJJ+p7eZcc2XX1mAhlsQKALRUO1LSrRuUoa0GlyRLvhdUyDgcU9NK05xhk5oWTcobJ4 P456bvlOlLOIa3hIHKxUFNwBJrAa9Y4709kMskDTi1 jdENO8fNyGGwYxC2o9+brBF5TXeGjBV8NOOfQ7G8lSvHF6klh7WdTaK+UdBmAsv6l0tLbvRkhuqP1cIY pXGKTNhUaXZhar0T+oNnMnksqfilOMfI21zW/SuDkODa9iyLFEUzcvjtGGg1zb/Y5XPO6wdfLAoH1Lwq L/2erMsUBGZS1dm/c2z746OXA/LVnxGibLGhx [file] SrM6LkW5ypIvnEohoAFHgG2n/lszmB+crystal mounter/dDnKq7uuFrpAP1jhvfezrPpXafD30Tg/jD2Nm+yWm+VR [file] XJYjA5GL277gxLOs4A/wG4dKm9i7SQfm+ICFvSqn7lTnrJh2i//sg9T71t8HcNCtJRt+qlFkd7Hbn/pmo analyst [file] mipurEJjZJCsWily+M0i5TvDLMQu4Ao3x4iA/9NJ/87LWE/+2FS5gTXXosmt5z00LPx8pJ7nJZF7H XeKxonb7vbnpcl67Ys15GO5aiBTSe+yxsVbRtIe9F+bKyhtWEzytAG7Y+BB/4UTuSY7vkEIBr9eh1KAW Catering Truck Operator+QTg9joo8lq7cjWQIUqbreeVyRUOSi/uBUytW4nE [file] Catering Truck Operator/k87vLvv6MZjA0LJ/fdnx9LNydqagHSL4/nKxrSI [file] CwxaqR4Z/lcN+T2i+ul+QM9jj1v2AKrjTYNPks+womens volleyball coach GIEiHJ6HcwMh7ho8yjn9rsHQA5uxhuo45h//+G/FD6Z09ZYucG3NvAmn3qRIBhfF8qDj3gf9w9+lgqKr Eupak3guDCPu6HnifGojv3KjM/yfqeZRQOZ0oPUEqMtYPKg0DscpdkM9XI2pvpkfF6h5/MI6q3eIJXU8 DgIihiYo/GEd81+hmu/fYw/KmO6n42BIwrPqHPIkEM IoYsJCydV3E0/qFOZ/ZiiBg4IozN/PqHgg1sc9ta99dHLknuslx+ShH/HkcedmpPcJbk3gd4n3wUWeGp /4Rhs1reluuDu1i2Z1m1Ujc+aWMWsByRna/Eyw2ScqEfuy9W65uwP3k83U6nWY3WRuM6ygDkoiWzi8l1 y6RlRWD62v6ncdSq7T8PFW5PyP7LPQrB+ev8809pgS Yqv/wRc3f7ZTE+7Un2052A03j2LO5cvC376X3+LB9x7+mJ07rjOf9Czydq6kc99VXnaPtwIwxUi5cOgt oxQgezTwVWUkzvIMSqPJ2FdwzBEtpzEzisoNgBPCBrMby9nuPpnG35QUIqYi887ZTGYgy23I0vhPAHsv ia6l/qDgAeQrtfn8u6g/VTO/vLe8oCfHeQCljNR4NG OAsnj/V97IzByxGsL4ptkgMCrOb8LhlUhJ4J2ODh961Hc72dGI7WiGZetZGe22Af/YACCXWyb8jq4NEp w2+tupWf1c9pj7h3g6ayJHihxbBA3omp/fYtmYJbWffK1c59LfiFNAzPksXiiaPQldFI09qP6buBsQDn oH0ivYVfOcnzXlbzpogjgrdaTdoJgq9uEEBFLxSSUk ll1ts7EXd3DYLKAbXwhEgiL6mr7xk9w8lTfYLBZpZchC/gracie/lf96jBuqxwkiMal2nJpHBOLJ2ToVnTG [file] BzwONRHjdb/iU5//SbEgB2B6+DknNyotIv88psz [file] coding consultant+1hrWgGjgOTm1fPTqmdNzrEt2Yw3qeODeZEfeR2NVP7HrUWmj2jAYxQYD/9r3UXkLop4E56b6KKfc [file] NsBqlwQHvu3l36bE7IitcWppWiT6+xbVHYlKw/drVA2H+I0NPky9OwNSlj7z2DqEF6Q3ZpsmYg4nS+building construction professor [file] Mary [file] 0hRkOrO0icKM7Y7sfh/vzJ0/4atc9rkjwtxFyN/[place] rrd47yq2I5f6suDTJ8q3h08xgvsem319wUzoeNwXknmXBvm24Q+ODEMSqB6sS4BGTCViH51n3DM7/f3d Qi2hjG3Zg3Ywh1FkFzpenQLg16w/RzUMSvN5WotIs5YyDtPJEZ7tVVgzLTA4hS1e4gd3V6cxv1WKwBn7 NKY4ch4urxLpPmmTpF3UQdvHTBuidaNIz/Js8lYr4a 8b5kzBuN9quT1mUh3vymUteoAkxRhFiEbpP63aigjKRWC18yl9zKQgsZUPOlrB74rOA6+CXw0reqE0xf JzI90YuxZN51fEXKHm7GqrKe/PsN8NJlk6ObxbW2T9i9K8vmyfSF/MDyIOHpah/u6reyqo5+V4KAbk2z 8SgCRX94KVGsLuORvajrnboCw6CEWIrwE/6kYhxUif lUCguX9ncGIjE7Oh7tuKMkCrx2o+dWyZricsIzFTImWJ+Ow0KAt4VimNiuUmYV8ZBa+uNfxcUkxFl6B2 FYn8WOWE9QRZv7WUCnZ9EOebdE5DENJF0K+N0WXH9z7Gl2L6gCm+hos+TjAXehQZmyzE/FPDSto7aSCs bgKCnh5tlkQaFKnlY/0CClCfE9xas4WemrZD5i1T7P 0ZE+5UrZNnVosZouHo20xg2pdT7VcA5EfOXiOvos1/8lvPIG6xwjFYLmmXzyfULSCPwsXU5g1JX7KnUI 9EvmO61nRVQFNBRUnHSDi7FpGh58z9aY1ho9hAMMw2y330bdSwCBTpFuVdXiPwwJRu0kjpYoyqLrcZ8b qzIXA37loNNJQS3prHKv6fRWggyvKDdQjv7581OyWf bLT/XNRafHAChMm6jXKMr8onFtdFlvkI1ARshPAfYcz9r4JooCeLMp9+Dlo5Lmon69GAGAbp8akhdsNe osteology teacher/mCGBS3O2c799LGlLAGH1TwlhpzGPcaJQXYyNyMYnfM0aLMHq4V780zV1vfHYd4TK6RC/nlFJdCwbq [file] P2rlCgZAweDFU7TpozCTcbWKRVFy== Procedure Social History Code Duration Value Status Description Data Source(s ) Smoking 02/13/2021 12:00:00 AM EDT Patient is a former smoker completed Patient is a former smoker [facility] ) Alcohol intake 01/16/2021 12:00:00 AM EDT Current non-d mike of alcohol (finding) completed Current non-drinker of alcohol (finding) [facility] Smoking 12/19/2020 09:41:25 AM EDT Ex-smoker (finding) [facility] ed Ex-smoker (finding) [facility] (Brandon Duran MD [facility]) Smoking 08/15/2020 12:00:00 AM EST Patient is a former smoker completed Patient is a former smoker [facility]) Smoking 05/15/2020 12:00:00 AM EDT Patient is a former smoker completed Patient is a former smoker [facility] ([facility]) Smoking 05/03/2020 12:00:00 AM EDT Patient has never smoked co mpleted Patient has never smoked [facility] ([facility], [facility]) Alcohol intake 04/17/2020 12:00:00 AM EDT No completed [facility] Smoking 04/17/2020 12:00:00 AM EDT Former smoker completed Former smoker [facility] Vital Signs ID Date Data Source UNK Name Value Range Interpretation Code Description Data Source(s) Systolic blood pressure 124 mm[Hg] 124 mm[Hg] M [facility] ([facility]) Diastolic blood pressure 68 mm[Hg] 68 mm[Hg] [facility] ([facility]) Body weight 156.00 [lb_av] 156.00 [lb_av] MED[facility] T ([facility]) Body mass index (BMI) [Ratio] 27.0 kg/m2 27.0 k g/m2 [facility] ([facility]) Heart rate 82 /min 82 /min [facility] ([facility]) Respiratory rate 18 /min 18 /min [facility] ( [facility]) Body temperature 98.7 [degF] 98.7 [degF] [facility] ([facility]) Oxygen saturation in Arterial blood by Pulse oximetry 97 % 97 % [facility] ([facility]) [place] body weight 115 [lb_av] 115 [lb_av] [facility] T ([facility]) Body height 63.7 [in_i] 63.7 [in_i] [facility] ([facility]) 5'3.70" Systolic blood pressure 138 mm[Hg] 138 mm[Hg] M EDENT ([facility]) Diastolic blood pressure 76 mm[Hg] 76 mm[Hg] [facility] ([facility]) Body height 63.7 [in_i] 63.7 [in_i] [facility] ([facility]) 5'3.70" Heart rate 86 /min 86 /min [facility] ([facility]) Respiratory rate 20 /min 20 /min [facility] ( [facility]) Body temperature 98.0 [degF] 98.0 [degF] [facility] ([facility]) Oxygen saturation in Arterial blood by Pulse oximetry 97 % 97 % [facility] ([facility]) [place] body weight 115 [lb_av] 115 [lb_av] [facility] T ([facility]) Systolic blood pressure 138 mm[Hg] 138 mm[Hg] M [facility] ([facility]) Body weight 153.38 [lb_av] 153.38 [lb_av] [facility] T ([facility]) Body mass index (BMI) [Ratio] 26.6 kg/m2 26.6 k g/m2 [facility] ([facility]) Diastolic blood pressure 76 mm[Hg] 76 mm[Hg] [facility] ([facility]) Heart rate 82 /min 82 /min [facility] ([facility]) Body height 63.7 [in_i] 63.7 [in_i] [facility] 5'3.70" Body temperature 98.4 [degF] 98.4 [degF] MEDENT ([facility]) Oxygen saturation in Arterial blood by Pulse oximetry 97 % 97 % [facility] [place] body weight 115 [lb_av] 115 [lb_av] MEDEN T ([facility]) Respiratory rate 18 /min 18 /min MEDENT ( [facility]) Heart rate 84 /min 84 /min [facility] ([facility]) Body temperature 98.4 [degF] 98.4 [degF] MED[facility] ([facility]) Oxygen saturation in Arterial blood by Pulse oximetry 98 % 98 % [facility] ([facility]) [place] body weight 115 [lb_av] 115 [lb_av] MEDEN T ([facility]) Respiratory rate 18 /min 18 /min MED[facility] ( [facility]) Systolic blood pressure 128 mm[Hg] 128 mm[Hg] M EDENT ([facility]) Diastolic blood pressure 78 mm[Hg] 78 mm[Hg] [facility] ([facility]) Body height 63.7 [in_i] 63.7 [in_i] MED[facility] ([facility]) 5'3.70" Body weight 152.38 [lb_av] 152.38 [lb_av] MEDEN T ([facility]) Body mass index (BMI) [Ratio] 26.4 kg/m2 26.4 k g/m2 [facility] ([facility]) Systolic blood pressure 140 mm[Hg] 140 mm[Hg] M EDENT ([facility]) Diastolic blood pressure 78 mm[Hg] 78 mm[Hg] [facility] ([facility]) Body weight 149.12 [lb_av] 149.12 [lb_av] MEDEN T ([facility]) Heart rate 72 /min 72 /min [facility] ([facility]) Body mass index (BMI) [Ratio] 25.8 kg/m2 25.8 k g/m2 [facility] ([facility]) Body temperature 97.6 [degF] 97.6 [degF] [facility] ([facility]) Body height 63.7 [in_i] 63.7 [in_i] MEDENT ([facility]) 5'3.70" Oxygen saturation in Arterial blood by Pulse oximetry 98 % 98 % [facility] ([facility]) [place] body weight 115 [lb_av] 115 [lb_av] MEDEN T ([facility]) Respiratory rate 16 /min 16 /min [facility] ( [facility]) Body weight 151.25 [lb_av] 151.25 [lb_av] MEDEN T ([facility]) Systolic blood pressure 120 mm[Hg] 120 mm[Hg] M EDENT ([facility]) Body mass index (BMI) [Ratio] 26.2 kg/m2 26.2 k g/m2 [facility] ([facility]) Heart rate 62 /min 62 /min [facility] ([facility]) Respiratory rate 14 /min 14 /min MED[facility] ( [facility]) Body temperature 97.8 [degF] 97.8 [degF] [facility] ([facility]) Oxygen saturation in Arterial blood by Pulse oximetry 98 % 98 % [facility] ([facility]) [place] body weight 115 [lb_av] 115 [lb_av] MEDEN T ([facility]) Diastolic blood pressure 68 mm[Hg] 68 mm[Hg] [facility] ([facility]) Body height 63.7 [in_i] 63.7 [in_i] [facility] ([facility]) 5'3.70" Systolic blood pressure 122 mm[Hg] 122 mm[Hg] [facility] Diastolic blood pressure 60 mm[Hg] 60 mm[Hg] [facility] ([facility] ) Body height 64 [in_i] 64 [in_i] [facility] ([facility]) 5'4" Body weight 151.19 [lb_av] 151.19 [lb_av] MEDEN T ([facility]) Body mass index (BMI) [Ratio] 25.9 kg/m2 25.9 k g/m2 [facility] [place] body weight 120 [lb_av] 120 [lb_av] MEDEN T ([facility], ) Oxygen saturation in Arterial blood by Pulse oximetry 96 % 96 % [facility] ([facility], ) Room Air Body height 64 [in_i] 64 [in_i] [facility] ([facility], ) 5'4" Systolic blood pressure 110 mm[Hg] 110 mm[Hg] M [facility] ([facility], ) Diastolic blood pressure 70 mm[Hg] 70 mm[Hg] [facility] ([facility], ) Heart rate 71 /min 71 /min [facility] ([facility], ) [place] body weight 120 [lb_av] 120 [lb_av] MEDEN T ([facility], ) Systolic blood pressure 126 mm[Hg] 126 mm[Hg] M [facility] ([facility], ) Body weight 68.947 kg 68.947 kg [facility] ([facility], ) Body surface area Derived from formula 1.74 m2 1.74 m2 [facility] ([facility], ) Diastolic blood pressure 70 mm[Hg] 70 mm[Hg] [facility] ([facility], ) Heart rate 78 /min 78 /min [facility] ([facility]) Oxygen saturation in Arterial blood by Pulse oximetry 95 % 95 % [facility] ([facility]) Body height 64 [in_i] 64 [in_i] [facility] ([facility]) 5'4" Body weight 152.00 [lb_av] 152.00 [lb_av] MED[facility] T ([facility]) Body mass index (BMI) [Ratio] 26.1 kg/m2 26.1 k g/m2 [facility] ([facility]) Oxygen saturation in Arterial blood by Pulse oximetry 95 % 95 % [facility] ([facility]) Body height 64 [in_i] 64 [in_i] [facility] ([facility]) 5'4" Body weight 152.00 [lb_av] 152.00 [lb_av] [facility] Body mass index (BMI) [Ratio] 26.1 kg/m2 26.1 k g/m2 [facility] ([facility]) [place] body weight 120 [lb_av] 120 [lb_av] [facility] Body weight 68.947 kg 68.947 kg [facility] ([facility]) Body surface area Derived from formula 1.74 m2 1.74 m2 [facility] ([facility]) Systolic blood pressure 128 mm[Hg] 128 mm[Hg] [facility] Oxygen saturation in Arterial blood by Pulse oximetry 100 % 100 % [facility] Diastolic blood pressure 80 mm[Hg] 80 mm[Hg] [facility] Heart rate 77 /min 77 /min [facility] Body height 162.6 cm 162.6 cm [facility] Body weight 68.947 kg 68.947 kg [facility] Body mass index (BMI) [Ratio] 26.09 kg/m2 26.09 kg/m2 [facility] Systolic blood pressure 126 mm[Hg] 126 mm[Hg] Lilibeth MONTILLA ([facility]) Diastolic blood pressure 72 mm[Hg] 72 mm[Hg] [facility] ([facility]) Body height 63.7 [in_i] 63.7 [in_i] [facility] ([facility]) 5'3.70" Body weight 151.12 [lb_av] 151.12 [lb_av] MED[facility] T ([facility]) Body mass index (BMI) [Ratio] 26.2 kg/m2 26.2 k g/m2 [facility] ([facility]) Heart rate 81 /min 81 /min [facility] ([facility]) Respiratory rate 18 /min 18 /min [facility] ( [facility]) Body temperature 97.9 [degF] 97.9 [degF] [facility] ([facility]) Oxygen saturation in Arterial blood by Pulse oximetry 96 % 96 % [facility] ([facility]) [place] body weight 115 [lb_av] 115 [lb_av] MED[facility] T ([facility]) Respiratory rate 18 /min 18 /min [facility] ( [facility]) Body mass index (BMI) [Ratio] 25.8 kg/m2 25.8 k g/m2 [facility] ([facility]) Diastolic blood pressure 68 mm[Hg] 68 mm[Hg] [facility] ([facility]) Systolic blood pressure 118 mm[Hg] 118 mm[Hg] M EDENT ([facility]) Body height 63.7 [in_i] 63.7 [in_i] [facility] ([facility]) 5'3.70" Body weight 149.12 [lb_av] 149.12 [lb_av] MEDEN T ([facility]) Heart rate 86 /min 86 /min [facility] ([facility]) Body temperature 98.6 [degF] 98.6 [degF] [facility] ([facility]) Oxygen saturation in Arterial blood by Pulse oximetry 95 % 95 % [facility] ([facility]) [place] body weight 115 [lb_av] 115 [lb_av] MEDEN T ([facility]) Oxygen saturation in Arterial blood by Pulse oximetry 96 % 96 % [facility] ([facility]) Systolic blood pressure 132 mm[Hg] 132 mm[Hg] M EDENT ([facility]) Diastolic blood pressure 78 mm[Hg] 78 mm[Hg] [facility] ([facility]) [place] body weight 115 [lb_av] 115 [lb_av] [facility] T ([facility]) Body height 63.7 [in_i] 63.7 [in_i] [facility] ([facility]) 5'3.70" Body weight 151.38 [lb_av] 151.38 [lb_av] MEDEN T ([facility]) Body mass index (BMI) [Ratio] 26.2 kg/m2 26.2 k g/m2 [facility] ([facility]) Heart rate 87 /min 87 /min [facility] ([facility]) Respiratory rate 20 /min 20 /min [facility] ( [facility]) Body temperature 98.1 [degF] 98.1 [degF] [facility] ([facility]) Body weight 149 [lb_av] 149 [lb_av] eCW1 ([facility]) Body height 64 [in_i] 64 [in_i] eCW1 ([facility]) Body mass index (BMI) [Ratio] 25.57 kg/m2 25.57 kg/m2 W1 ([facility]) Heart rate 79 /min 79 /min eCW1 ([facility]) Respiratory rate 18 /min 18 /min eCW1 ([facility]) Body temperature 98.5 [degF] 98.5 [degF] eCW1 ( [facility]) Systolic blood pressure 146 mm[Hg] 146 mm[Hg] e CW1 ([facility]) Diastolic blood pressure 65 mm[Hg] 65 mm[Hg] eCW1 ([facility]) Body mass index (BMI) [Ratio] 25.61 kg/m2 25.61 kg/m2 eCW1 ([facility]) Heart rate 71 /min 71 /min eCW1 ([facility]) Respiratory rate 17 /min 17 /min eCW1 ([facility]) Body temperature 97.8 [degF] 97.8 [degF] eCW1 ( [facility]) Systolic blood pressure 154 mm[Hg] 154 mm[Hg] e CW1 ([facility]) Diastolic blood pressure 82 mm[Hg] 82 mm[Hg] eCW1 ([facility]) Body weight 149.2 [lb_av] 149.2 [lb_av] eCW1 ([facility]) Body height 64 [in_i] 64 [in_i] eCW1 ([facility]) Body weight 153 [lb_av] 153 [lb_av] eCW1 ([facility]) Body height 64 [in_i] 64 [in_i] eCW1 ([facility]) Body mass index (BMI) [Ratio] 26.26 kg/m2 26.26 kg/m2 eCW1 ([facility]) Body weight 153 [lb_av] 153 [lb_av] eCW1 ([facility]) Body height 64 [in_i] 64 [in_i] eCW1 ([facility]) Body mass index (BMI) [Ratio] 26.26 kg/m2 26.26 kg/m2 eCW1 ([facility]) Body weight 153 [lb_av] 153 [lb_av] eCW1 ([facility]) Body height 64 [in_i] 64 [in_i] eCW1 ([facility]) Body mass index (BMI) [Ratio] 26.26 kg/m2 26.26 kg/m2 W1 ([facility]) Body temperature 99 [degF] 99 [degF] eCW1 ([facility]) [place] body weight 115 [lb_av] 115 [lb_av] HAYDEE T ([facility]) Systolic blood pressure 140 mm[Hg] 140 mm[Hg] M EDENT ([facility]) Diastolic blood pressure 84 mm[Hg] 84 mm[Hg] ALESSIO ([facility]) Body height 63.7 [in_i] 63.7 [in_i] MEDENT ([facility]) 5'3.70" Body mass index (BMI) [Ratio] 26.2 kg/m2 26.2 k g/m2 MEDENT ([facility]) Heart rate 77 /min 77 /min MEDENT ([facility]) Oxygen saturation in Arterial blood by Pulse oximetry 95 % 95 % MEDENT ([facility]) Body weight 151.25 [lb_av] 151.25 [lb_av] MEDEN T ([facility]) Respiratory rate 18 /min 18 /min MEDENT ( [facility]) Body temperature 99.3 [degF] 99.3 [degF] MEDENT ([facility]) Systolic blood pressure 126 mm[Hg] 126 mm[Hg] M EDENT ([facility]) Diastolic blood pressure 78 mm[Hg] 78 mm[Hg] MEDENT ([facility]) Body height 63.7 [in_i] 63.7 [in_i] MEDENT ([facility]) 5'3.70" Respiratory rate 18 /min 18 /min MEDENT ( [facility]) Body weight 156.50 [lb_av] 156.50 [lb_av] MEDEN T ([facility]) Body mass index (BMI) [Ratio] 27.1 kg/m2 27.1 k g/m2 MEDENT ([facility]) Heart rate 77 /min 77 /min MEDENT ([facility]) Body temperature 98.0 [degF] 98.0 [degF] MEDENT ([facility]) Oxygen saturation in Arterial blood by Pulse oximetry 97 % 97 % MEDENT ([facility]) [place] body weight 115 [lb_av] 115 [lb_av] MEDEN T ([facility]) Heart rate 62 /min 62 /min MEDENT ([facility]) Body temperature 97.0 [degF] 97.0 [degF] MEDENT ([facility]) Body height 64 [in_i] 64 [in_i] MEDENT ([facility]) 5'4" Body weight 152.00 [lb_av] 152.00 [lb_av] MEDEN T ([facility]) Body mass index (BMI) [Ratio] 26.1 kg/m2 26.1 k g/m2 MEDENT ([facility]) Oxygen saturation in Arterial blood by Pulse oximetry 90 % 90 % [facility]) Systolic blood pressure 120 mm[Hg] 120 mm[Hg] M EDENT ([facility]) Diastolic blood pressure 68 mm[Hg] 68 mm[Hg] MEDENT ([facility]) Heart rate 87 /min 87 /min [facility]) Body temperature 98.8 [degF] 98.8 [degF] [facility]) Systolic blood pressure 126 mm[Hg] 126 mm[Hg] M [facility] ([facility]) Body height 63.7 [in_i] 63.7 [in_i] [facility] ([facility]) 5'3.70" Respiratory rate 19 /min 19 /min [facility] ( [facility]) Oxygen saturation in Arterial blood by Pulse oximetry 94 % 94 % [facility] ([facility]) [place] body weight 115 [lb_av] 115 [lb_av] MEDEN T ([facility]) Diastolic blood pressure 72 mm[Hg] 72 mm[Hg] [facility]) Body weight 151.38 [lb_av] 151.38 [lb_av] MEDEN T ([facility]) Body mass index (BMI) [Ratio] 26.2 kg/m2 26.2 k g/m2 [facility]) Systolic blood pressure 128 mm[Hg] 128 mm[Hg] [facility] Diastolic blood pressure 80 mm[Hg] 80 mm[Hg] [facility] Heart rate 72 /min 72 /min [facility] Body height 162.6 cm 162.6 cm [facility] Body weight 67.132 kg 67.132 kg [facility] Body mass index (BMI) [Ratio] 25.40 kg/m2 25.40 kg/m2 [facility] Oxygen saturation in Arterial blood by Pulse oximetry 97 % 97 % [facility] Heart rate 116 /min 116 /min MEDENT ([facility]) Respiratory rate 20 /min 20 /min MEDENT ( [facility]) Systolic blood pressure 138 mm[Hg] 138 mm[Hg] M EDENT ([facility]) Diastolic blood pressure 82 mm[Hg] 82 mm[Hg] MEDENT ([facility]) Body height 63.7 [in_i] 63.7 [in_i] MEDENT ([facility]) 5'3.70" Body weight 153.00 [lb_av] 153.00 [lb_av] MEDEN T ([facility]) Body mass index (BMI) [Ratio] 26.5 kg/m2 26.5 k g/m2 MEDENT ([facility]) Body temperature 98.4 [degF] 98.4 [degF] MEDENT ([facility]) Oxygen saturation in Arterial blood by Pulse oximetry 94 % 94 % MEDENT ([facility]) 95 recheck [place] body weight 115 [lb_av] 115 [lb_av] MEDEN T ([facility]) Body surface area Derived from formula 1.73 m2 1.73 m2 MEDENT ([facility]) Body weight 149.00 [lb_av] 149.00 [lb_av] MEDEN T ([facility]) Systolic blood pressure 142 mm[Hg] 142 mm[Hg] M EDENT ([facility]) Diastolic blood pressure 72 mm[Hg] 72 mm[Hg] MEDENT ([facility]) Body height 64.25 [in_i] 64.25 [in_i] MEDENT ([facility]) 5'4.25" Body mass index (BMI) [Ratio] 25.4 kg/m2 25.4 k g/m2 MEDENT ([facility]) Systolic blood pressure 152 mm[Hg] 152 mm[Hg] M EDENT ([facility], [facility]) Diastolic blood pressure 86 mm[Hg] 86 mm[Hg] MEDENT ([facility], [facility]) Heart rate 66 /min 66 /min MEDENT ([facility], [facility]) Respiratory rate 18 /min 18 /min MEDENT ( [facility], [facility]) Oxygen saturation in Arterial blood by Pulse oximetry 98 % 98 % MEDENT ([facility], [facility]) Body temperature 98.2 [degF] 98.2 [degF] MEDENT ([facility], [facility]) Body weight 152.00 [lb_av] 152.00 [lb_av] MEDEN T ([facility], [facility]) Body height 65 [in_i] 65 [in_i] MEDENT ([facility]) 5'5" Body mass index (BMI) [Ratio] 25.3 kg/m2 25.3 k g/m2 MEDENT ([facility], [facility]) Body mass index (BMI) [Ratio] 26.4 kg/m2 26.4 k g/m2 MEDENT ([facility]) Heart rate 87 /min 87 /min MEDENT ([facility]) Respiratory rate 20 /min 20 /min MEDENT ( [facility]) Body temperature 97.9 [degF] 97.9 [degF] MEDENT ([facility]) Oxygen saturation in Arterial blood by Pulse oximetry 95 % 95 % [facility]) [place] body weight 115 [lb_av] 115 [lb_av] MEDEN T ([facility]) Systolic blood pressure 126 mm[Hg] 126 mm[Hg] EDENT ([facility]) Diastolic blood pressure 76 mm[Hg] 76 mm[Hg] MEDENT ([facility]) Body height 63.7 [in_i] 63.7 [in_i] MEDENT ([facility]) 5'3.70" Body weight 152.25 [lb_av] 152.25 [lb_av] MEDEN T ([facility]) Respiratory rate 16 /min 16 /min MEDENT ( [facility]) Body temperature 96.6 [degF] 96.6 [degF] MEDENT ([facility]) Oxygen saturation in Arterial blood by Pulse oximetry 97 % 97 % [facility] ([facility]) Systolic blood pressure 128 mm[Hg] 128 mm[Hg] M EDENT ([facility]) Diastolic blood pressure 80 mm[Hg] 80 mm[Hg] [facility]) Body height 63.7 [in_i] 63.7 [in_i] MEDENT ([facility]) 5'3.70" Body weight 150.12 [lb_av] 150.12 [lb_av] MEDEN T ([facility]) Body mass index (BMI) [Ratio] 26.0 kg/m2 26.0 k g/m2 [facility] ([facility]) Heart rate 64 /min 64 /min [facility] ([facility]) [place] body weight 115 [lb_av] 115 [lb_av] MEDEN T ([facility]) Body height 64 [in_i] 64 [in_i] [facility] ([facility], ) 5'4" Body surface area Derived from formula 1.74 m2 1.74 m2 [facility] ([facility]) Body weight 151.00 [lb_av] 151.00 [lb_av] MEDEN T ([facility]) Body mass index (BMI) [Ratio] 25.9 kg/m2 25.9 k g/m2 [facility] ([facility]) [place] body weight 120 [lb_av] 120 [lb_av] MEDEN T ([facility]) Body weight 68.494 kg 68.494 kg [facility] ([facility]) Body height 64 [in_i] 64 [in_i] [facility] ([facility]) 5'4" Systolic blood pressure 160 mm[Hg] 160 mm[Hg] [facility], ) Diastolic blood pressure 90 mm[Hg] 90 mm[Hg] [facility] ([facility]) Body weight 151.00 [lb_av] 151.00 [lb_av] MEDEN T ([facility]) Heart rate 74 /min 74 /min [facility] ([facility]) Oxygen saturation in Arterial blood by Pulse oximetry 96 % 96 % [facility] ([facility], ) Body weight 68.494 kg 68.494 kg [facility] ([facility], ) Body mass index (BMI) [Ratio] 25.9 kg/m2 25.9 k g/m2 [facility] ([facility], ) Patient Treatment Plan of Care Planned Activity Planned Date Details Description Data Source (s) 24 HR metoprolol succinate 25 MG Extended Release Oral Tablet 02/26/2021 12:00:00 AM EDT [facility] Warfarin Sodium 2 MG Oral Tablet 02/26/2021 12:00:00 AM EDT [facility] Warfarin Sodium 2.5 MG Oral Tablet 02/13/2021 12:00:00 AM EDT [facility] Prednisone 20 MG Oral Tablet 01/16/2021 12:00:00 AM EDT [facility] 24 HR metoprolol succinate 25 MG Extended Release Oral Tablet 11/04/2020 12:00:00 AM EDT [facility] Amoxicillin 875 MG / Clavulanate 125 MG Oral Tablet 10/24/19 12:00:00 AM EDT eCW1 ([facility]) Amoxicillin 875 MG / Clavulanate 125 MG Oral Tablet 10/24/19 12:00:00 AM EDT eCW1 ([facility]) Prednisone 20 MG Oral Tablet 10/18/2020 12:00:00 AM EDT eCW1 ([facility]) Prednisone 20 MG Oral Tablet 10/18/2020 12:00:00 AM EDT eCW1 ([facility]) Prednisone 20 MG Oral Tablet 10/18/2020 12:00:00 AM EDT eCW1 ([facility]) Prednisone 20 MG Oral Tablet 10/18/2020 12:00:00 AM EDT eCW1 ([facility]) Prednisone 20 MG Oral Tablet 10/18/2020 12:00:00 AM EDT eCW1 ([facility]) Prednisone 20 MG Oral Tablet 10/18/2020 12:00:00 AM EDT eCW1 ([facility]) atorvastatin 40 MG Oral Tablet 10/01/2020 12:00:00 AM EST [facility] Warfarin Sodium 2.5 MG Oral Tablet 10/01/2020 12:00:00 AM EST [facility] 24 HR metoprolol succinate 25 MG Extended Release Oral Tablet 07/17/2020 12:00:00 AM EST [facility] 24 HR metoprolol succinate 25 MG Extended Release Oral Tablet 07/17/2020 12:00:00 AM EST [facility] Warfarin Sodium 2.5 MG Oral Tablet 07/17/2020 12:00:00 AM EST [facility] atorvastatin 40 MG Oral Tablet 07/17/2020 12:00:00 AM EST [facility] 24 HR metoprolol succinate 25 MG Extended Release Oral Tablet 05/01/2020 12:00:00 AM EDT [facility] Sucralfate 1000 MG Oral Tablet 02/16/2020 12:00:00 AM EDT [facility] Trazodone Hydrochloride 50 MG Oral Tablet 10/04/2019 12:00:00 AM ES T [facility] Simethicone 80 MG Chewable Tablet 08/14/2019 12:00:00 AM EST [facility] LINZESS 72 MCG CAPS 08/11/2019 12:00:00 AM EST [facility] Estrogens, Conjugated (MCFP) 0.625 MG/ML Vaginal Cream [Premarin] 04/22/2018 12:00:00 AM EDT [facility] 1 ML denosumab 60 MG/ML Prefilled Syringe [facility] Warfarin Sodium 2.5 MG Oral Tablet [facility]
--- NOTE | 2021-06-08 12:34 | REP ---
INDICATION: CHEST PAIN. COMPARISON: 01/06/2021, 12/15/2020; CT 12/15/2020. TECHNIQUE: AP portable seated FINDINGS: Lung oh are well inflated. There is no pleural effusion, lateral pleural thickening, acute infiltrate or parenchymal mass. No pulmonary nodule. There cuffed bronchi in the perihilar regions that might reflect some reactive airway disease or bronchitis. Minor apical pleuroparenchymal scarring on the left greater than right. Heart not enlarged the aorta is calcified at the arch but without aneurysm. Airway intact. No widening of the mediastinum. Symmetric elida. Bones are unremarkable. There is an [place] anti reflux device seen in the left upper quadrant, unchanged no free air under the diaphragm.. IMPRESSION: 1. No acute cardiopulmonary change. There are some cuffed bronchi in the perihilar regions which might reflect some reactive airway disease or bronchitis. Minor apical pleuroparenchymal thickening left greater than right. Stable exam. <Electronically signed by Feng Mora > 06/08/21 [id number]
[2021-06-08 12:48] LABS: BASO # 0.1 10^3/uL (0.0-0.2); EOS # 0.3 10^3/uL (0.0-0.5); EOS % 3.6 % (0.0-3.0); HEMATOCRIT 37.5 % (36.0-47.0); HEMOGLOBIN 11.8 g/dl (12.0-15.5); LYMPH # 1.3 10^3/uL (1.5-5.0); LYMPH % 19.5 % (24.0-44.0); MEAN CORPUSCULAR HGB CONC 31.5 g/dl (32.0-36.5); MEAN CORPUSCULAR VOLUME 92.1 fl (80.0-96.0); MONO # 0.7 10^3/uL (0.0-0.8); MONO % 9.6 % (2.0-8.0); NEUTROPHILS # 4.5 10^3/uL (1.5-8.5); PLATELET COUNT, AUTOMATED 242 10^3/uL (150-450); RED BLOOD COUNT 4.07 10^6/uL (4.00-5.40); WHITE BLOOD COUNT 6.9 10^3/uL (4.0-10.0)
[2021-06-08 13:20] LABS: INR 2.18; PROTHROMBIN TIME 24.7 SECONDS (12.7-14.5)
[2021-06-08 13:21] LABS: PARTIAL THROMBOPLASTIN TIME 39.2 SECONDS (25.9-37.0)
[2021-06-08 13:23] LABS: BLOOD UREA NITROGEN 15 MG/DL (7-18); CALCIUM LEVEL 8.6 MG/DL (8.8-10.2); CARBON DIOXIDE LEVEL 26 MEQ/L (21-32); CHLORIDE LEVEL 111 MEQ/L (98-107); GLOMERULAR FILTRATION RATE > 60.0 (>39); GLUCOSE, FASTING 85 MG/DL (70-100); POTASSIUM SERUM 5.4 MEQ/L (3.5-5.1); SODIUM LEVEL 140 MEQ/L (136-145)
[2021-06-08 13:24] LABS: ALBUMIN 3.3 GM/DL (3.2-5.2); ALT/SGPT 30 U/L (12-78); BILIRUBIN,DIRECT < 0.1 MG/DL (0.0-0.2); CK-MB VALUE MASS < 1.0 NG/ML (<3.6); CPK CREATINE PHOSPHOKINASE 134 U/L (26-192); FREE T4 0.89 NG/DL (0.76-1.46); LIPASE 996 U/L (73-393); MB/CK RELATIVE INDEX 0.75 (< OR =4); TOTAL PROTEIN 6.9 GM/DL (6.4-8.2); TROPONIN I < 0.02 NG/ML (< 0.10)
--- NOTE | 2021-06-08 13:33 | REP ---
INDICATION: leg pain r/o DVT. COMPARISON: 11/30/2020 TECHNIQUE: Multiple ultrasonographic images of the deep venous structures of the bilateral thighs were obtained from the level of the common femoral vein to the popliteal vein in the longitudinal and transverse scan planes along with Doppler interrogation and color flow Doppler imaging. Scanning in the proximal calves to evaluate posterior tibial and peroneal veins. FINDINGS: There is no abnormal echogenic material seen within any of the visualized bilateral deep venous structures that would suggest acute thrombosis. Coaptation is unremarkable throughout. Doppler interrogation shows an expected response to respiratory variability and augmentation. The color flow Doppler images show what appears to be a normal vascular pattern throughout. The bilateral proximal calves were also studied and the posterior tibial veins and peroneal veins were compressible. IMPRESSION: There is no ultrasonographic evidence of deep venous thrombosis involving any of the visualized deep venous structures of the bilateral thighs and proximal calves as described above. Accredited by the [employer] in Vascular Peripheral Ultrasound. <Electronically signed by Feng Mora > 06/08/21 [id number]
[2021-06-08 13:55] LABS: D-DIMER QUANT 370.92 ng/ml (<500)
--- NOTE | 2021-06-08 15:06 | REP ---
INDICATION: abd pain elevated lipase. COMPARISON: 02/19/2021. TECHNIQUE: Noncontrast imaging through the abdomen and pelvis with coronal and sagittal reconstructions. FINDINGS: CT abdomen: Lung bases show minor dependent atelectatic changes but no infiltrate, effusion, nodule or mass. The heart is not enlarged there is no pericardial thickening or effusion. There is an age will check anti reflux device noted about the proximal stomach and GE junction there is no hepatosplenomegaly, focal hepatic or splenic lesion or biliary dilatation. No ascites gallbladder without stones or mass. The pancreas, adrenal glands stomach were intact. No renal cortical or collecting system stones present. Kidneys show parapelvic cysts some mild hydronephrosis and extrarenal pelvis bilaterally. Ureters are not abnormally dilated and show no stone or displacement. The aorta has atherosclerotic calcifications without aneurysm no periaortic, mesenteric or other retroperitoneal pathologic sized lymphadenopathy. Anastomotic suture line in the right upper quadrant shows ileocolic anastomosis intact from prior right hemicolectomy. Small bowel loops grossly unremarkable. No pericolonic inflammatory change in the abdomen. See no ascites lung window review of all CT slices abdomen pelvis shows no for perforation or free air. Bone windows show no compression deformity or destructive lesion in the posterior elements and thoracic and lumbar regions intact. Visualized ribs are also intact. CT pelvis: Sacrum, SI joints, pelvis and hips with minor degenerative change but no fracture or destructive lesion. Distal left colon sigmoid and rectum are unremarkable few scattered diverticula in the mid to distal sigmoid without colitis or diverticulitis. No ascites in the pelvis. Uterus absent the vaginal cuff intact no pelvic mass bladder shows the small amount of urine within without wall thickening or mass. There is a small urachal remnant projecting for superiorly from the anterior bladder in the midline without mass. This is unchanged. No ventral or inguinal hernia nor pathologic sized inguinal adenopathy. IMPRESSION: 1. Bilateral mild hydronephrosis, some parapelvic cysts and extrarenal pelves without stone disease. May be some mild atrophy of the left kidney in the interval. 2. No renal, ureteral or bladder stone. No hydroureter. 3. The aorta is calcified without aneurysm. No periaortic, other retroperitoneal or mesenteric pathologic lymphadenopathy. 4. Anastomotic suture line at the ileocolic anastomosis in the right upper quadrant from prior right hemicolectomy unchanged. Remainder of colon and small bowel loops grossly unremarkable. 5. No ventral or inguinal hernia, inguinal or pelvic adenopathy, pelvic ascites or other acute finding. <Electronically signed by Feng Mora > 06/08/21 [id number]
[2021-06-08] MEDS ORDERED: TRAZ-252 PO (15:24)
[2021-06-08] MEDS ORDERED: TOLT2CAP4 PO (15:24)
[2021-06-08] MEDS ORDERED: BUPR1TAB52 PO (15:24)
--- OUTSIDE RECORDS SUMMARY | 2021-06-08 15:43 | CCD ---
Author Author [facility] Organization [facility] Address Unknown Phone Unavailable Support Name Relationship Address Phone [facility] Next Of Kin [address] [place] [address] Norman Barker Next Of Kin pt doesn't know numb er yet Unknown Unavailable Fan DARSHANAFaiza Next Of Kin [address] [place] [address] [place] [facility] Next Of Kin [address] [place] [address] [place] [address] [phone] RE Next Of Kin Unknown Unavailable NORMAN HERNANDEZ Next Of Kin [address] [id number] [employer] Next Of Kin [address] [place] [address] [employer] Next Of Kin [employer] Unknown Unavailable UE Next Of Kin Unknown Unavailable [place] [facility] Next Of Kin [address] [place] [address] Unavailable CHERYL BOLDEN Next Of Kin [address] [place] [place] [phone] [employer] Next Of Kin [address] [place], [place] [id number] HA CLARKE Next Of Kin [address] [address] [id number] Ha Clarke Next Of Kin Unknown UNEMPLOYED Next Of Kin [address] [place] [address] Carol Marie ECON [address] [facility] [address] [place] [address] Unavailable Norman Hernandez ECON [address] [place] [address] Unavailable Care Team Providers 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.] Taylor MD, FACS Unavailable Unavailable Garcia Duran, Denies Taylor MD, FACS Unavailable Unavailable Garcia Duran, [...] Denise Taylor MD, FACS Unavailable Unavailable Garcia Druan, Denise Taylor MD, FACS Unavailable Unavailable Garcia [...] FRANCES MD Unavailable Unavailab le EMILY (MARNI), Liilbeth FRANCES MD Unavailable Unavailab le EMILY (MARNI), [...] FRANCES MD Unavailable Unavailab le EMILY (MARNI), Lilbieth FRANCES MD Unavailable Unavailab le EMILY (MARNI), [...] Unavailable Rudy Andersen MD Unavailable Unavailable Rudy Anderesn MD Unavailable Unavailable Valentin, M Kia RPA [...] T Marii PA Unavailable Unavailable Feola, T Amrii PA Unavailable Unavailable Chintan De La Vega MD Unavailable Unavailable Chintan De La Vega MD Unavailable Unavailable Chintan De La Vega MD Unavailable Unavailable Chintan De La Vega MD Unavailable Unavailable hCintan De La Vega MD Unavailable Unavailable Chintan [...] Alena VERONICA Unavailable Unavailable Fish, B Alena VERONCIA Unavailable Unavailable Fish, B Alena VERONICA Unavailable [...] Unavailable Unavailable JOSSUE-ANDREW, SOFIA DO Unavailable Unavailable JOSUSE-ANDREW, SOFIA DO Unavailable Unavailable JOSSUE-ANDREW, SOFIA DO [...] Unavailable Unavailable JOSSUE-ANDREW, SOFIA DO Unavailable Unavailable JOSSUE-ADNREW, SOFIA DO Unavailable Unavailable JOSSUE-ANDREW, SOFIA DO [...] is protected by Article 27-F of the [facility] Public Health law. If you continue you may have access to information: Regarding HIV / AIDS; Provided by facilities licensed or operated by the [facility] Office of Mental Health; or Provided by the [facility] Office for People With Developmental Disabilities. If such information is present, then the following [facility] mandated warning applies: This information has [...] law may result in a fine or group home sentence or both. A general authorization for the release of medical or other information is NOT sufficient authorization for further disc losure. Allergies and Adverse Reactions Type Description Substance Reaction Status Data Source(s ) Drug allergy Iodine Tincture External Iodine Tincture Acti ve IZABEL (Brandon Duran MD [facility]) Drug allergy Duramorph Morphine Sulfate Active GREENW AY (Brandon Duran MD [facility]) Drug allergy Sulfa drug Oral Capsule Sulfa drug Active IZABEL (Brandon Duran MD [facility]) Family History Family Member Name Family Member Gender Family Member Status Date o f Status Description Data Source(s) Unknown Unknown Problem MEDENT (Isak alvarez [employer]) Encounters Encounter Providers Location Date Indications Data Source(s ) Outpatient SJP.STEPH-SJP.STEPH 06/05/2021 12:00:00 AM EDT [facility] Outpatient SJP.STEPH-SJP.STEPH 05/29/2021 12:00:00 AM EDT [facility] Outpatient SJP.STEPH-SJP.STEPH 05/22/2021 12:00 :00 AM EDT - 05/22/2021 09:05:44 AM EDT [facility] Outpatient Attender: Gavin ZARATE Family [facility] 05/20/2021 03:40:00 PM EDT MEDENT (Family Medicine [facility]) Outpatient SJP.STEPH-SJP.STEPH 05/15/2021 12:00:00 AM EDT [facility] Outpatient SJP.STEPH-SJP.STEPH 05/08/2021 08:33:00 AM EDT [facility] Outpatient Attender: Gavin ZARATE Family Medicine [facility] 05/07/2021 09:30:00 AM EDT MEDENT (Family Medicine [facility]) Outpatient Attender: Rudy CARPENTER.STEPH-SJP.STEPH 04/04 12:00:00 AM EDT - 05/01/2021 10:42:39 AM EDT [facility] Outpatient SJP.STEPH-SJP.STEPH 04/24/2021 08:42:19 AM EDT [facility] Outpatient SJP.STEPH-SJP.STEPH 04/10/2021 12:00:00 AM EDT [facility] Outpatient Attender: Gavin ZARATE Family Medicine [facility] 04/09/2021 09:20:00 AM EDT MEDENT ([facility]) Outpatient SJP.STEPH-SJP.STEPH 04/03/2021 12:00:00 AM EDT [facility] Outpatient Attender: [facility]ANIEL [facility] MDAdmitter: JUAN DANIEL DIAZ MD ([place]) [id number] 03/31/2021 12:01:55 PM EDT [facility] Outpatient SJP.STEPH-SJP.STEPH 03/27/2021 12:00:00 AM EDT [facility] Outpatient SJP.STEPH-SJP.STEPH 03/20/2021 12:00:00 AM EDT [facility] Outpatient SJP.STEPH-SJP.STEPH 03/13/2021 11:22:26 AM EDT [facility] Attender: JUAN DANIEL LANGSTON) MDReferrer: J [...] [facility] Attender: JUAN DANIEL LANGSTON) MDReferrer: Ailna Hamm 03/04/2021 08:21:08 PM EDT [facility] Outpatient Referrer: JUAN DANIEL DIAZ MD ([place]) 11:10:24 AM EDT [facility] Outpatient Attender: Gavin ZARATE [facility] 02/28/2021 01:20:00 PM EDT MEDENT ([facility]) Outpatient SJP.STEPH-SJP.STEPH 02/26/2021 12:00:00 AM EDT [facility] Outpatient Attender: Gavin ZARATE [facility] 02/17/2021 09:20:00 AM EDT MEDENT ([facility]) Outpatient Attender: Alena De La Vega MD Physical Therapy 02/17 09:00:00 AM EDT MEDENT ([facility] ) Outpatient Attender: Jamie Griggs/Preethi/Ramón/R robertndporfirio 02/13/2021 03:00:00 PM EDT MEDENT ([facility]) Outpatient SJP.STEPH-SJP.STEPH 02/13/2021 12:00:00 AM EDT [facility] Outpatient Attender: Jamie Griggs/Preethi/Ramón/R eindl 02/11/2021 10:30:00 AM EDT MEDENT ([facility]) Outpatient SJP.STEPH-SJP.STEPH 02/07/2021 10:09:17 AM EDT [facility] Outpatient SJP.STEPH-SJP.STEPH 01/30/2021 12:00:00 AM EDT [facility] Outpatient 01/27/2021 05:16:01 PM EDT [facility] ([facility]) Outpatient SJP.STEPH-SJP.STEPH 01/23/2021 12:00:00 AM EDT [facility] Outpatient SJP.STEPH-SJP.STEPH 01/16/2021 09:57:26 AM EDT [facility] Outpatient Attender: Rudy CARPENTER.STEPH-SJP.STEPH 12/31 12:00:00 AM EDT - 01/16/2021 11:51:00 AM EDT [facility] Outpatient SJP.STEPH-SJP.STEPH 01/08/2021 09:56:08 AM EDT [facility] Outpatient SJP.STEPH-SJP.STEPH 01/01/2021 10:40:26 AM EDT [facility] Outpatient Attender: Gavin ZARATE [facility] 01/01/2021 09:40:00 AM EDT [facility] Unknown [address] [facility] [address] 12/23/2020 12:00:00 AM EDT eCW1 ([facility]) Outpatient<td ID="encounterTypeDescripti onID0">IOP CHECK</td><td>Brandon Duran MD, FACS</td><td>Brandon Weiss MD [facility]</td><td>12/19/2020</td><td>8:49AM</td><td>09/04/2020 11:59PM</td><td> <content ID="encounterDiagnosisID0-0">Glaucoma Open-angle Primary</content></td> Attender: Brandon Duran MD, FACS Brandon Weiss MD [facility] 12/19/2020 08:49:00 AM EDT - 09/04/2020 11:59:00 PM EST Glaucoma Open-angle Primary CLARENCE (Brandon Duran MD [facility]) Glaucoma Open-angle Primary Outpatient Attender: Gavin ZARATE [facility] 12/18/2020 09:20:00 AM EDT [facility]) Outpatient SJP.STEPH-SJP.STEPH 12/18/2020 12:00:00 AM EDT [facility] Outpatient Attender: Gavin ZARATE [facility] 12/04/2020 11:30:00 AM EDT [facility] Attender: JUAN DANIEL LANGSTON) MDReferrer: Alina Hamm 11/26/2020 08:21:04 PM EDT [facility] Attender: JUAN DAINEL EMILY LANGSTON) MDReferrer: Alina Purcelln 11/26/2020 08:21:04 PM EDT [facility] Attender: JUAN DANIEL BUTTSMARCELLUS LANGSTON) MDReferrer: J ILL JOSSUE-ANDREW DO 11/26/2020 08:21:04 PM EDT [facility] Attender: JUAN DANIEL BUTTSELIN DebbieMARNI) MDReferrer: Alina ILL JOSSUE-ANDREW DO 11/26/2020 08:21:04 PM EDT [facility] Outpatient SJP.STEPH-SJP.STEPH 11/19/2020 08:40:42 AM EDT [facility] Office Visit Attender: Charlene Cage MD Main office - [place] 11/11/2020 12:45:00 PM EDT MEDENT ([facility] ) Outpatient SJP.STEPH-SJP.STEPH 11/08/2020 12:00:00 AM EDT [facility] Outpatient SJP.STEPH-SJP.STEPH 10/29/2020 02:19:55 PM EDT [facility] Outpatient [address] [facility] [address] 10/23/2020 12:00:00 AM EDT eCW1 ([facility]) Unknown [address] [facility] [address] 10/21/2020 12:00:00 AM EDT eCW1 ([facility]) Unknown [address] [facility] [address] 10/21/2020 12:00:00 AM EDT eCW1 ([facility]) Unknown [address] [facility] [address] 10/21/2020 12:00:00 AM EDT eCW1 ([facility]) Outpatient [address] [facility] [address] 10/18/2020 12:00:00 AM EDT eCW1 ([facility]) Unknown [address] [facility] [place] [address] 10/18/2020 12:00:00 AM EDT eCW1 ([facility]) TeleMedicine Phone E/M by Phys 11-20 Min [address] [place] [address] 10/16/2020 12:00:00 AM EDT eCW1 ([facility]) TeleMedicine Phone E/M by Phys 11-20 Min [address] [place] [address] 10/14/2020 12:00:00 AM EDT eCW1 ([facility]) Unknown [address] [facility] [address] 10/14/2020 12:00:00 AM EDT eCW1 ([facility]) Unknown [address] [facility] [address] 10/14/2020 12:00:00 AM EDT eCW1 ([facility]) Unknown [address] [facility] [place] [address] 10/14/2020 12:00:00 AM EDT eCW1 ([facility]) TeleMedicine Phone E/M by Phys 11-20 Min [address] [place] [address] 10/11/2020 12:00:00 AM EST eCW1 ([facility]) Outpatient Attender: Marii ZARATE 021 11:57:36 AM EST - 10/06/2020 01:17:44 PM EST [facility]ap ([facility] ) Outpatient Attender: Gavin ZARATE Family Medicine [facility] 10/01/2020 09:00:00 AM EST MEDENT ([facility]) Outpatient SJP.STEPH-SJP.STEPH 10/01/2020 12:00:00 AM EST [facility] Office Visit Attender: Charlene Cage MD Main office - [place] 09/18/2020 11:15:00 AM EST [facility] ([facility]) Outpatient SJP.STEPH-SJP.STEPH 09/17/2020 12:00:00 AM EST [facility] Outpatient<td ID="encounterTypeDescripti onID1">TRIAGE NEW PATIENT</td><td>Brandon Weiss MD, FACS</td><td>Brandon Weiss MD [facility]</td><td>09/04/2020</td><td>9:23AM</td><td>11:21AM</td><td><content ID="encounterDiagnosisID1-0">Glaucoma Open-angle Primary</content>, <content ID="encounterDiagnosisID1-1">Cataract Senile Nuclear</content>, <content ID="encounterDiagnosisID1-2">Dry Eye Syndrome Both Eyes</content>, <content ID="encounterDiagnosisID1-3">Vitreous Disorders Degeneration</content></td> Attender: Brandon Duran MD, FACS Brandon Weiss MD [facility] 09/04/2020 09:23:0 0 AM EST - 09/04/2020 11:21:00 AM EST Vitreous Disorders DegenerationDry Eye Syndrome Both EyesCataract Senile NuclearGlaucoma Open-angle Primary IZABEL (Brandon Duran MD 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) Outpatient SJP.STEPH-SJP.STEPH 09/02/2020 12:00:00 AM EST [facility] Outpatient Attender: Alena De La Vega MD Physical Therapy 08/15 08:45:00 AM EST MEDENT ([facility]) Outpatient Attender: Gavin ZARATE [facility] 08/01/2020 08:20:00 AM EST MEDENT ([facility]) Outpatient SJP.STEPH-SJP.STEPH 07/31/2020 12:00:00 AM EST [facility] Outpatient SJP.STEPH-SJP.STEPH 07/17/2020 10:53:37 AM EST [facility] Outpatient Attender: Rudy Andersen MD SJP.STEPH-SJP.STEPH 07/02 12:00:00 AM EST - 07/17/2020 11:58:54 AM EST [facility] Outpatient Attender: Tacos ZARATE Family Medicine [facility] 07/08/2020 03:00:00 PM EST MEDENT ([facility]) Outpatient SJP.STEPH-SJP.STEPH 07/01/2020 12:00:00 AM EST [facility] Outpatient SJP.STEPH-SJP.STEPH 06/24/2020 12:00:00 AM EST [facility] Outpatient SJP.STEPH-SJP.STEPH 06/18/2020 08:36:18 AM EST [facility] Attender: JUAN DANIEL LANGSTON) MDReferrer: J [...] [facility] 05/16/2020 12:44:05 PM EDT [facility] Outpatient [facility] 05/16/2020 12:43:00 PM EDT [facility] Outpatient [facility] 05/16/2020 12:04:00 PM EDT [facility] Outpatient [facility] 05/16/2020 12:02:00 PM EDT [facility] Outpatient Attender: Kia STEARNS- [facility]ULT [facility] 05/16/2020 10:59:01 AM EDT [facility] Outpatient Attender: Kia Hanson [facility]ULT [facility] 05/16/2020 08:58:00 AM EDT [facility] Outpatient Attender: ROYER ROGERS MD [facility] 11:15:00 AM EDT MEDENT ([facility]) Outpatient Attender: GAVIN ZARAET [facility] 05/03/2020 08:20:00 AM EDT MEDENT ([facility]) Outpatient Attender: Gavin ZARATE Family [facility] 05/01/2020 09:20:00 AM EDT MEDENT ([facility]) Outpatient SJTOMASA-SJP.STEPH 05/01/2020 12:00:00 AM EDT [facility] Outpatient Attender: Tacos ZARATE Family Medicine [facility] 04/24/2020 11:00:00 AM EDT MEDENT ([facility]) Outpatient Attender: Rudy MENDOZA-SJP.STEPH 04/02 09:59:10 AM EDT [facility] Attender: JUAN DANIEL LANGSTON) MDReferrer: Alina CERVANTES DO 04/09/2020 08:20:09 PM EDT [facility] Attender: JUAN DANIEL DIAZ ([place]) MDReferrer: Alina CERVANTES DO 04/09/2020 08:20:09 PM EDT [facility] Immunizations Vaccine Date Status Description Data Source(s) [...] Benzonatate 05/20/2021 12:00:00 AM EDT active MEDENT ([facility]) Prednisone 20 MG Oral Tablet Prednisone 05/20/2021 12:00:00 AM EDT ORAL completed MEDENT ([facility]) 1 mg 05/08/2021 12:00:00 AM EDT [...] 04/09/2021 12:00:00 AM EDT ORAL active MEDENT ([facility]) 12 HR CHLORPHENIRAMINE POLISTIREX 1.6 MG /ML [...] Polistirex 02/28/2021 12:00:00 AM EDT active MEDENT ([facility]) Warfarin Sodium 2 MG Oral Tablet warfarin (COUMADIN) 2 MG tablet warfarin (COUMADIN) 2 MG tablet 02/26/2021 12:00:00 AM EDT active One to two tabs daily as directed by customer care representative [facility] 24 HR metoprolol succinate 25 MG Extende d Release Oral Tablet metoprolol succinate (TOPROL-XL) 25 MG 24 hr tablet metoprolol succinate (TOPROL-XL) 25 MG 24 hr tablet 02/26/2021 12:00:00 AM EDT 25 mg Oral activ e Take 1 tablet (25 mg total) by mouth daily [facility] Omeprazole 40 MG Delayed Release Oral Capsule Omeprazole 02/17/2021 12:00:00 AM EDT ORAL active MEDENT ([facility]) Prolia [facility]#[id number] (60mg Syringe)1MG 02/17/2021 12:00:00 AM EDT completed MEDENT ([facility]) Medication administered onsite Warfarin Sodium 2.5 MG Oral Tablet warfarin (COUMADIN) 2.5 MG tablet warfarin (COUMADIN) 2.5 MG tablet 02/13/2021 12:00:00 AM EDT active One to two tabs daily as directed by customer care representative [facility] Prednisone 20 MG Oral Tablet predniSONE (DELTASONE) 20 MG tablet predniSONE (DELTASONE) 20 MG tablet 01/16/2021 12:00:00 AM EDT 20 mg Oral active Take 1 tablet (20 mg total) by mouth daily for 6 days [facility] 120 ACTUAT Fluticasone propionate 0.045 MG/ACTUAT / salmeterol 0.021 MG/ACTUAT Metered Dose Inhaler [Advair] Advair HFA 01/07/2021 12:00:00 AM EDT RESPIRATORY active MEDENT ( [facility]) benzonatate 100 MG Oral Capsule Benzonatate 01/01/2021 12:00:00 AM EDT ORAL completed MEDENT ([facility]) 60 ACTUAT Fluticasone propionate 0.1 MG/ ACTUAT / salmeterol 0.05 MG/ACTUAT Dry Powder Inhaler [Advair] Advair Diskus 01/01/2021 12:00:00 AM EDT RESPIRATORY completed MEDENT ([facility]) 12 HR CHLORPHENIRAMINE POLISTIREX 1.6 MG [...] 12:00:00 AM EDT RESPIRATORY compl eted MEDENT ([facility]) 12 HR CHLORPHENIRAMINE POLISTIREX 1.6 MG /ML / HYDROCODONE POLISTIREX 2 MG/ML Extended Release Suspension Hydrocodone Polistirex/Chlorpheniramine Polistirex 12/18/2020 12:00:00 AM EDT completed MEDENT ([facility]) 110 mcg/actuation 12/18/2020 12:00:00 AM EDT HFA [...] Back/Adjustable 12/18/2020 12:00:00 AM EDT active MEDENT ([facility]) Walker Wheels/Fixed With 8 Adjustment Holes/5" 12/18/2020 12:00:00 AM EDT active MEDENT ([facility]) benzonatate 100 MG Oral Capsule BENZONATATE 12/17/2020 [...] 12:00:00 AM EDT RESPIRATORY complet ed MEDENT ([facility]) benzonatate 200 MG Oral Capsule Benzonatate 12/04/2020 12:00:00 AM EDT completed MEDENT ([facility]) 10-8 mg/5 mL 12/03/2020 12:00:00 AM EDT [...] tablet (25 mg total) by mouth daily [facility] 1 mg 11/02/2020 12:00:00 AM EDT tablet 60 TAKE ONE TABLET BY MOUTH TWICE A DAY MAXIMUM DAILY DOSE = TWO TABLETS TAKE ONE TABLET BY MOUTH TWICE A DAY MAXIMUM DAILY DOSE = TWO TABLETS SOLD: 11/02/2020 [facility] Amoxicillin 875 MG / Clavulanate 125 MG Oral Tablet Amoxicillin-Pot Clavulanate 875-125 MG Amoxicillin-Pot Clavulanate 875-125 MG 10/23/2020 12:00:00 AM ED T 1.0 {tablet} active eCW1 ([facility]) Amoxicillin 875 MG / Clavulanate 125 MG Oral Tablet Amoxicillin-Pot Clavulanate 875-125 MG Amoxicillin-Pot Clavulanate 875-125 MG 10/23/2020 12:00:00 AM ED T 1.0 {tablet} active Amoxicillin-Pot Cla vulanate 875-125 MG eCW1 ([facility]) Prednisone 20 MG Oral Tablet PredniSONE 20 MG PredniSONE 20 MG 10/18/2020 12:00:00 AM EDT 1.0 {tablet} active Pr edniSONE 20 MG eCW1 ([facility]) Prednisone 20 MG Oral Tablet PredniSONE 20 MG PredniSONE 20 MG 10/18/2020 12:00:00 AM EDT 1.0 {tablet} active eCW1 ([facility]) Prednisone 20 MG Oral Tablet PredniSONE 20 MG PredniSONE 20 MG 10/18/2020 12:00:00 AM EDT 1.0 {tablet} active Pr edniSONE 20 MG eCW1 ([facility]) Prednisone 20 MG Oral Tablet PredniSONE 20 MG PredniSONE 20 MG 10/18/2020 12:00:00 AM EDT 1.0 {tablet} active Pr edniSONE 20 MG eCW1 ([facility]) 20 mg 10/18/2020 12:00:00 AM EDT tablet 5 TAKE ONE TABLET BY MOUTH EVERY DAY FOR 5 DAYS TAKE ONE TABLET BY MOUTH EVERY DAY FOR 5 DAYS SOLD: 10/21/2020 [facility] Prednisone 20 MG Oral Tablet PredniSONE 20 MG PredniSONE 20 MG 10/18/2020 12:00:00 AM EDT 1.0 {tablet} active Pr edniSONE 20 MG eCW1 ([facility]) Prednisone 20 MG Oral Tablet PredniSONE 20 MG PredniSONE 20 MG 10/18/2020 12:00:00 AM EDT 1.0 {tablet} active Pr edniSONE 20 MG eCW1 ([facility]) Prednisone 20 MG Oral Tablet PredniSONE 20 MG PredniSONE 20 MG 10/18/2020 12:00:00 AM EDT 1.0 {tablet} active Pr edniSONE 20 MG eCW1 ([facility]) Prednisone 20 MG Oral Tablet PredniSONE 20 MG PredniSONE 20 MG 10/18/2020 12:00:00 AM EDT 1.0 {tablet} active Pr edniSONE 20 MG eCW1 ([facility]) 200 ACTUAT Levalbuterol 0.045 MG/ACTUAT Metered Dose I nhaler [Xopenex] Xopenex HFA 10/07/2020 12:00:00 AM EST RESPIRATORY active MEDENT ([facility]) 45 mcg/actuation 10/07/2020 12:00:00 AM EST HFA [...] tablet (40 mg total) by mouth daily [facility] Warfarin Sodium 2.5 MG Oral Tablet warfarin (COUMADIN) 2.5 MG tablet warfarin (COUMADIN) 2.5 MG tablet 10/01/2020 12:00:00 AM EST 2.5 mg Oral active Take 1 tablet (2.5 mg total) by mouth nightly [facility] 24 HR Divalproex Sodium 250 MG Extended Release Oral T ablet [Depakote] Depakote ER 10/01/2020 12:00:00 AM EST ORAL active MEDENT ([facility]) benzonatate 100 MG Oral Capsule [Tessalon Perles] Tessalon P erles 10/01/2020 12:00:00 AM EST ORAL completed MEDENT ([facility]) montelukast 10 MG Oral Tablet Montelukast Sodium 10/01/2020 12:00:00 AM EST ORAL active MEDENT ([facility]) rizatriptan 10 MG Oral Tablet [Maxalt] Maxalt 10/01/2020 12:00:00 AM EST ORAL active MEDENT ([facility]) Sumatriptan 100 MG Oral Tablet [Imitrex] Imitrex 09/18/2020 12:00: 00 AM EST ORAL active MEDENT ([facility]) Calcium Citrate-Vitamin D 500-500 MG-UNIT Oral Tablet Chewable Calcium Citrate- Vitamin D 500-500 MG-UNIT Oral Tablet Chewable 09/04/2020 12:00:00 AM EST 1 active Calcium Citrate-Vitamin D IZABEL (Brandon Duran MD [facility]) atorvastatin 40 MG Oral Tablet [Lipitor] Lipitor 40 MG Oral Tablet Lipitor 40 MG Oral Tablet 09/04/2020 12:00:00 AM EST 1 activ e atorvastatin 40 MG Oral Tablet [Lipitor] IZABEL (Brandon Duran MD [facility]) Warfarin Sodium 2.5 MG Oral Tablet [Coumadin] Coumadin 2.5 MG Oral Tablet Coumadin 2.5 MG Oral Tablet 09/04/2020 12:00:00 AM EST 1 active warfarin sodium 2.5 MG Oral Tablet [Coumadin] IZABEL (Brandon Duran MD [facility]) travoprost 0.04 MG/ML Ophthalmic Solutio n [Travatan] Travatan Z 0.004% Ophthalmic Solution Travatan Z 0.004% Ophthalmic Solution 09/04/2020 12:00 :00 AM EST 1 active travoprost 0.04 M G/ML Ophthalmic Solution [Travatan] IZABEL (Brandon Duran MD [facility]) Propylthiouracil 50 MG Oral Tablet Propylthiouracil 50 MG Or al Tablet 09/04/2020 12:00:00 AM EST 1 active propylt hiouracil 50 MG Oral Tablet IZABEL (Brandon Duran MD [facility]) Cholecalciferol 5000 UNT Oral Capsule Vitamin D3 Maximum Str ength 08/15/2020 12:00:00 AM EST ORAL active M EDENT ([facility]) Prolia [facility]#[id number] (60mg Syringe)1MG 08/15/2020 12:00:00 AM EST completed [facility] ([facility]) Medication administered onsite tramadol hydrochloride 50 MG Oral Tablet Tramadol HCL 08/01/2020 12:00:00 AM EST ORAL active MEDENT ([facility]) NITROFURANTOIN, MACROCRYSTALS 100 MG Oral Capsule Nitrofuran toin Macrocrystal 08/01/2020 12:00:00 AM EST ORAL completed MEDENT ([facility]) linaclotide 0.145 MG Oral Capsule [Linzess] Linzess 07/04 12:00:00 AM EST ORAL active MED[facility] ( [facility]) 100 mg 08/01/2020 12:00:00 AM EST capsule [...] tablet (25 mg total) by mouth daily [facility] Warfarin Sodium 2.5 MG Oral Tablet warfarin (COUMADIN) 2.5 MG tablet warfarin (COUMADIN) 2.5 MG tablet 07/17/2020 12:00:00 AM EST 2.5 mg Oral active Take 1 tablet (2.5 mg total) by mouth nightly [facility] 24 HR metoprolol succinate 25 MG Extende d Release Oral Tablet metoprolol succinate (TOPROL-XL) 25 MG 24 hr tablet metoprolol succinate (TOPROL-XL) 25 MG 24 hr tablet 07/17/2020 12:00:00 AM EST 25 mg Oral activ e Take 1 tablet (25 mg total) by mouth daily [facility] atorvastatin 40 MG Oral Tablet atorvastatin (LIPITOR) 40 MG tablet atorvastatin (LIPITOR) 40 MG tablet 07/17/2020 12:00:00 AM EST 40 mg Oral active Take 1 tablet (40 mg total) by mouth daily [facility] 10,000 unit/mL 06/11/2020 12:00:00 AM EST solution 2 INJECT 2 MLS INTO THE BLADDER VIA CATHETER ONCE WEEKLY INJECT 2 MLS INTO THE BLADDER VIA CATHET ER ONCE WEEKLY SOLD: 06/16/2020 [facility] 1 ML heparin sodium, porcine 04922 UNT/ML Injection Heparin Sodium (Porcine) 05/29/2020 12:00:00 AM EDT active MED[facility] ([facility]) Amitriptyline Hydrochloride 25 MG Oral Tablet Amitriptyline HCL 05/15/2020 12:00:00 AM EDT ORAL active M EDENT ([facility]) Prednisone 20 MG Oral Tablet Prednisone 05/03/2020 12:00:00 AM EDT active MEDENT ([facility]) Amoxicillin 875 MG Oral Tablet Amoxicillin 05/03/2020 12:00:00 AM EDT active MEDENT ([facility], [facility]) 25 mg 05/02/2020 12:00:00 AM EDT tablet extended release 24 hr 90 TAKE ONE TABLET BY MOUTH EVERY DAY TAKE ONE TABLET BY MOUTH EVERY DAY SOLD: 05/03/2020 [facility] Prednisone 20 MG Oral Tablet Prednisone 05/01/2020 12:00:00 AM EDT ORAL completed MED[facility] ([facility]) 24 HR metoprolol succinate 25 MG Extende d Release Oral Tablet metoprolol succinate (TOPROL-XL) 25 MG 24 hr tablet metoprolol succinate (TOPROL-XL) 25 MG 24 hr tablet 05/01/2020 12:00:00 AM EDT 25 mg Oral abort ed Take 1 tablet (25 mg total) by mouth daily [facility] cetirizine hydrochloride 10 MG Oral Tablet Cetirizine HCL 04/24/2020 12:00:00 AM EDT ORAL active MED[facility] ([facility]) Fluconazole 150 MG Oral Tablet [Diflucan] Diflucan 03/20/2020 1 2:00:00 AM EDT completed MED[facility] ([facility]) NITROFURANTOIN, MACROCRYSTALS 25 MG / Ni trofurantoin, Monohydrate 75 MG Oral Capsule [Macrobid] Macrobid 03/20/2020 12:00:00 AM EDT ORAL completed [facility] ([facility]) Sucralfate 100 MG/ML Oral Suspension [Carafate] Carafate 02/20/2020 12:00:00 AM EDT ORAL completed [facility] ([facility]) Sucralfate 1000 MG Oral Tablet sucralfate (CARAFATE) 1 g tablet sucralfate (CARAFATE) 1 g tablet 02/16/2020 12:00:00 AM EDT a borted [facility] Trazodone Hydrochloride 50 MG Oral Tablet traZODone (D ESYREL) 50 MG tablet traZODone (DESYREL) 50 MG tablet 10/04/2019 12:00:00 AM EST aborted as needed [facility] Simethicone 80 MG Chewable Tablet simethicone (MYLICON ) 80 MG chewable tablet simethicone (MYLICON) 80 MG chewable tablet 08/14/2019 12:00:00 AM EST aborted as needed [facility] LINZESS 72 [facility] [id number] 08/11/2019 12:00:00 AM EST aborted as needed [facility] Estrogens, Conjugated (MCFP) 0.625 MG/ML Vaginal Cream [Premarin] PREMARIN vaginal cream PREMARIN vaginal cream 04/22/2018 12:00:00 AM EDT aborted [facility] 1 ML denosumab 60 MG/ML Prefilled Syringe denosumab (P ROLIA) 60 MG/ML SOSY denosumab (PROLIA) 60 MG/ML SOSY 60 mg Subcutaneous aborted Inject 60 mg under the skin once [facility] Warfarin Sodium 2.5 MG Oral Tablet warfarin (COUMADIN) 2.5 MG tablet warfarin (COUMADIN) 2.5 MG tablet 2.5 mg Oral aborted Take 2.5 mg by mouth nightly [facility] Insurance Providers Payer name Policy type / Coverage type Policy ID Covered alliance party ID Covered alliance party's relationship to sharma Policy Sharma Plan Information [employer] [facility] [id number] 1 [id number] [facility]/ [id number] 1 [id number] MEDICARE [id number] SP [id number] B MEDICARE [id number] SP [id number] D MEDICARE [id number] SP [id number] MEDICARE [id number] xxxxxxxxxxx [id number] Medicare Natl Gov't Servi Medicare Primary [id number] Self Medicare P [id number] S [id number] A MEDICARE [id number] Tova [id number] [place] Primary [id number] Self 0 [id number] Medicare Part B [facility] [id number] 0 [id number] Medicare Natl Gov't Servi Medicare Primary [id number] Self 1 [id number] MEDICARE [id number] Tova [id number] A Medicare [place] Medicare Primary [id number] Self 0 [id number] MEDICARE [id number] Tova [id number] D MEDICARE [id number] SP [id number] A Medicare Part B [facility] [id number] 0 [id number] MEDICARE [id number] SP [id number] G92 FOR LIFE [id number] HU2 118 [id number] FOR LIFE [id number] HU2 118 [id number] FOR LIFE [id number] HU2 118 [id number] Tova [id number] xxxxxxxxx [id number] [place] Medicare Primary [id number] Self [id number] Medicare [place] Medicare Primary [id number] 2.16.840.1.730493.3.227.99.806.619.0 Self [id number] Medicare [place] Medicare Primary [id number] 2.16.840.1.774702.3.227.99.806.619.0 Self [id number] Medicare [place] Medicare Primary [id number] MRN.[id number] Self [id number] Medicare [place] Medicare Primary [id number] 2.16.840.1.290450.3.227.99.806.619.0 Self [id number] Medicare [place] Medicare Primary [id number] 2.16.840.1.057477.3.227.99.806.619.0 Self [id number] [id number] Medicare [place] Medicare Primary [id number] 2.16.840.1.403032.3.227.99.806.619.0 Self [id number] [id number] Medicare [place] Medicare Primary [id number] MRN.[id number] Self [id number] [place] Medicare Medicare Part B [id number] Self [id number] [employer] [id number] Self [id number] D [facility] P [id number] S [id number] INSURANCE COVID-19 [id number] xOVID 2 [id number] INSURANCE COVID-19 COVID Tova C OVID ANSI-Commercial [id number] ANSI-Medicare Part B [id number] ANSI-Medicare Part B [id number] MEDICARE [id number] SP [id number] A [place] < 08/02/17 Medigap Part B [id number] 2.0.1.227501.3.227.99.1629.4518.0 Family Dependent 1 [id number] For Life Medigap Part B [id number] 2.0.1.748014.3.227.99.1629.4518.0 Family Dependent 1 [id number] MEDICARE C [id number] S [id number] A WPS FOR LIFE [id number] 1 [id number] [facility] Medigap Part B [id number] 2.0.1.119307.3.227.99.991.517395.0 Family Dependent [id number] [facility] (TFL) Medigap Part B [id number] 2.0.1.587047.3.227.99.991.766447.0 Self [id number] Medicare [place] Medicare Primary [id number] 2.0.1.481695.3.227.99.991.137691.0 Self [id number] [place] < 08/02/17 Medigap Part B [id number] 2.0.1.130752.3.227.99.1629.4518.0 Family Dependent 1 [id number] For Life Medigap Part B [id number] 2..1.437110.3.227.99.1629.4518.0 Family Dependent 1 [id number] Medicare [place] Medicare Primary [id number] 2.0.1.866668.3.227.99.806.619.0 Self [id number] [id number] For Life Medigap Part B [id number] 2.0.1.584377.3.227.99.806.619.0 Family Dependent [id number] Medicare [place] Medicare Primary [id number] 2.16.840.1.507634.3.227.99.806.619.0 Self 067 [id number] For Life Medigap Part B [id number] 2.16.840.1.645713.3.227.99.806.619.0 Family Dependent [id number] Medicare [place] Medicare Primary [id number] 2.16.840.1.730832.3.227.99.806.619.0 Self 067 [id number] For Life Medigap Part B [id number] 2.16.840.1.999220.3.227.99.806.619.0 Family Dependent [id number] Medicare [place] Medicare Primary [id number] 2.16.840.1.016418.3.227.99.806.619.0 Self 067 [id number] For Life Medigap Part B [id number] 2.16.840.1.199740.3.227.99.806.619.0 Family Dependent [id number] Medicare [place] Medicare Primary [id number] 2.16.840.1.880988.3.227.99.806.619.0 Self 067 [id number] For Life Medigap Part B [id number] 2.16.840.1.390662.3.227.99.806.619.0 Family Dependent [id number] FOR LIFE WPS [id number] Commercial Insuranc e [id number] For Life WPS Medigap Part B [id number] 2.16840.1.136871.3.227.99.1767.1321.0 Family Dependent 1 [id number] MEDICARE [id number] B [facility] Part B [id number] 2.16840.1.840731.3.227.99.991.622381.0 Family Dependent [id number] [place] [facility] ([place]) [facility] Part B [id number] 2.16840.1.593419.3.227.99.991.703954.0 Self [id number] Medicare [place] Medicare Primary [id number] 2.160.1.842649.3.227.99.991.622003.0 Self [id number] [facility] Part B [id number] 2.16840.1.420617.3.227.99.991.429979.0 Family Dependent [id number] [facility]) [facility] Part B [id number] 2.0.1.488073.3.227.99.991.282697.0 Self [id number] Medicare [place] Medicare Primary [id number] 2.840.1.198268.3.227.99.991.322861.0 Self [id number] For Life [facility] [id number] 2.840.1.658907.3.227.99.806.619.0 Family Dependent [id number] Medicare [place] Medicare Primary [id number] 2.16840.1.049725.3.227.99.806.619.0 Self 067 [id number] MEDICARE C [id number] B For Life [facility] Part B [id number] 2.840.1.490603.3.227.99.806.619.0 Family Dependent [id number] Medicare [place] Medicare Primary [id number] 2.16.840.1.054475.3.227.99.806.619.0 Self [id number] [id number] [facility] Part B [id number] 2.16.840.1.049469.3.227.99.991.602293.0 Family Dependent [id number] [facility] (TFL) [facility] Part B [id number] 2.16.840.1.991944.3.227.99.991.340715.0 Self [id number] Medicare [place] Medicare Primary [id number] 2.16.840.1.077517.3.227.99.991.623035.0 Self [id number] For Life [facility] Part B [id number] 2.16.840.1.692953.3.227.99.806.619.0 Family Dependent [id number] Medicare [place] Medicare Primary [id number] 2.16.840.1.051620.3.227.99.806.619.0 Self 067 [id number] For Life [facility] Part B [id number] 2.16.840.1.134227.3.227.99.806.619.0 Family Dependent [id number] Medicare [place] Medicare Primary [id number] 2.16.840.1.260012.3.227.99.806.619.0 Self 067 [id number] [facility] OPTIONS C [id number] S [id number] [employer] [id number] Medic are [id number] FOR LIFE WPS [id number] Commercial Insuranc e [id number] [facility] Part B [id number] 2.0.1.755133.3.227.99.991.545517.0 Family Dependent [id number] [place] [employer] [facility]) [facility] Part B [id number] 2.0.1.273916.3.227.99.991.934572.0 Self [id number] Medicare [place] Medicare Primary [id number] 2.0.1.314110.3.227.99.991.178188.0 Self [id number] [facility] [id number] Medicar e [id number] MEDICARE C [id number] S [id number] D [employer] [facility] Part B [id number] 2.0.1.785925.3.227.99.1037.3581.0 Family Dependent 1 [id number] For Life [facility] Part B [id number] 2.0.1.1138 83.3.227.99.1037.3581.0 Family Dependent [id number] Medicare Part B Medicare Primary [id number] 2.0.1.003010.3.227.99.1037.3581.0 Self 1 [id number] [facility] Part B [id number] 2.0.1.677969.3.227.99.991.422213.0 Family Dependent [id number] [place] [employer] ([facility]) [facility] Part B [id number] 2.0.1.668909.3.227.99.991.700674.0 Self [id number] Medicare [place] Medicare Primary [id number] 2.0.1.788913.3.227.99.991.828107.0 Self [id number] Medicare Part B Medicare Primary 2.0.1.276434.3.227.9 9.1037.3581.0 Self [employer] [facility] Part B Dep Of Cheryl [id number] Family Dependent Dep Of Cheryl For Life [facility] Part B [id number] Family Dependent FOR LIFE WPS 2.16.840.1.369547.3.929 Comme rcial Insurance [employer] 16.840.1.524815 .3.929 Medicare Medicare Part B Medicare Primary [id number] Self BS [place] Medigap Part B [id number] Family Dependent [place] [facility] (TFL) Medigap Part B [id number] Self Medicare [place] Medicare Primary [id number] Self [employer] Commercial [id number] Family Depende nt Medicare Medicare Primary [id number] Self SELF PAY UNAVAILABLE SP UNAVAILA BLE For Life WPS Medigap Part B [id number] Family Depende nt MEDICARE PART A-O/P [id number] 18 [id number] MEDICARE -O/P [id number] 18 [id number] FOR LIFE UNAVAILABLE U NAVAILABLE FOR LIFE S [id number] P [id number] MEDICARE [id number] SP [id number] [id number] FOR LIFE [id number] HU2 118 [id number] For Life Secondary ONLY [id number] 1 [id number] Medicare Part B [facility] Other 0 [id number] Self 0 SELF PAY ONLY [id number] SP [id number] D [employer] [facility] [place] P [id number] S [id number] MEDICARE [id number] S [id number] [facility] S [id number] S [id number] FOR LIFE O [id number] P [id number] FOR LIFE WPS [id number] Commercial Insuranc e [id number] [employer] [id number] Medic are [id number] MEDICARE PART A-O/P [id number] 18 [id number] FOR LIFE-O/P [id number] 01 [id number] MEDICARE PART A-O/P [id number] 18 [id number] Medicare [place] Medicare Primary [id number] MRN.[id number] Self [id number] For Life Medigap Part B [id number] MRN.[id number] Family Dependent [id number] Medicare [place] Medicare Primary [id number] MRN.[id number] Self [id number] For Life Medigap Part B [id number] MRN.[id number] Family Dependent [id number] ANSI-Medicare Part B [id number] ANSI-Medicare Part B [id number] ANSI-Commercial [id number] [facility] [id number] [facility] [id number] [facility] Medigap Part B [id number].[id number] Family Dependent [id number] [place] [facility] (TFL) Medigap Part B [id number] Self [id number] Medicare [place] Medicare Primary [id number] MRN.[id number] Self [id number] ANSI-Medicare Part B [id number] ANSI-Medicare Part B [id number] ANSI-Commercial [id number] ANSI-Medicare Part B [id number] ANSI-Commercial [id number] ANSI-Medicare Part B [id number] Medicare [place] Medicare Primary [id number] 2.16.840.1.765259.3.227.99.806.619.0 [place] [id number] For Life [facility] Part B [id number] 2.16.840.1.948207.3.227.99.806.619.0 Family Dependent [id number] ANSI-Commercial [id number] ANSI-Medicare Part B [id number] ANSI-Medicare Part B [id number] Problems, Conditions, and Diagnoses Code Display Name Description Problem Type Effective Dates Data Source(s) I82.401 Acute embolism and thrombosi s of unspecified deep veins of right lower extremity Acute embolism and thrombosis of unspeci Diagnosis 05/22/2021 08:37:19 AM EDT [facility] D68.59 Other primary thrombophilia Other primary thrombophili a Diagnosis 05/01/2021 08:38:12 AM EDT [facility] K92.1 Melena Melena Diagnosis 04/24/2021 11:27:00 AM ED T [facility] R07.9 Chest pain, unspecified Chest pain, unspecified Diagno sis 01/16/2021 09:58:35 AM EDT [facility] E78.00 Pure hypercholesterolemia, unspecified P ure hypercholesterolemia, unspecified Diagnosis 01/16/2021 09:58:35 AM EDT [facility] I10 Essential (primary) hypertension Essential (primary) h ypertension Diagnosis 01/16/2021 09:58:35 AM EDT [facility] K58.1 Irritable bowel syndrome characterized b y constipation Irritable bowel syndrome characterized by constipation Problem 05/07/2021 12:00:00 A M EDT [facility] ([facility]) G43.009 Migraine without aura, not refractory Mi graine without aura, not refractory Problem 04/09/2021 12:00:00 AM EDT [facility] ([facility]) R05 Cough Cough [id number] 01/16/2021 12:00:00 AM ED T [facility] 379.21 Vitreous Disorders Degeneration Vitreous Disorders Deg eneration Problem 09/04/2020 12:00:00 AM EST I[facility]EL (Brandon [facility]an [facility]) [id number] Dry Eye Syndrome Both Eyes Dry Eye Syndrome Both Eyes Problem 09/04/2020 12:00:00 AM EST I[facility]EL (Brandon Duran [facility]) 366.16 Cataract Senile Nuclear Cataract Senile Nuclear Proble m 09/04/2020 12:00:00 AM EST [facility] ([facility]) H40.1131 Glaucoma Open-angle Primary Glaucoma Open-angle Primar y Problem 09/04/2020 12:00:00 AM EST [facility] ([facility]) K21.00 Gastro-esophageal reflux disease with ul ceration Gastro-esophageal reflux disease with ulceration Problem 08/01/2020 12:00:00 AM EST [facility] ( [facility]) Surgeries/Procedures Procedure Description Date Indications Data Source(s) OFFICE OUTPATIENT VISIT 15 MINUTES 05/20/2021 12:00:00 AM EDT [facility] ([facility]) OFFICE OUTPATIENT VISIT 25 MINUTES 05/07/2021 12:00:00 AM EDT [facility] ([facility]) OFFICE OUTPATIENT VISIT 25 MINUTES 04/09/2021 12:00:00 AM EDT [facility] ([facility]) OFFICE OUTPATIENT VISIT 15 MINUTES 02/28/2021 12:00:00 AM EDT MED[facility] ([facility]) OFFICE OUTPATIENT VISIT 25 MINUTES 02/17/2021 12:00:00 AM EDT MED[facility] ([facility]) THERAPEUTIC PROPHYLACTIC/DX INJECTION SUBQ/IM 02/18/20 21 12:00:00 AM EDT MEDENT ([facility]) OFFICE OUTPATIENT VISIT 10 MINUTES 02/17/2021 12:00:00 AM EDT MEDENT ([facility]) Spirometry 02/13/2021 12:00:00 AM EDT M EDENT ([facility], ) Plethysmography Determination Lung Volumes & Per Airway Resi st 02/13/2021 12:00:00 AM EDT MEDENT ([facility], ) DIFFUSING CAPACITY 02/13/2021 12:00:00 AM EDT MEDENT ([facility], ) OFFICE OUTPATIENT VISIT 15 MINUTES 02/13/2021 12:00:00 AM EDT MED[facility] ([facility], ) OFFICE OUTPATIENT VISIT 15 MINUTES 02/11/2021 12:00:00 AM EDT MED[facility] ([facility], ) POCT AMB EKG <td>POCT AMB EKG</td><td>Rou david</td><td>01/16/2021 11:31 AM EDT</td><td> Chest pain, unspecified type</td><td> </td> 01/16/2021 11:31:00 AM EDT Chest pain, unspecified type [facility] Chest pain, unspecified type OFFICE OUTPATIENT VISIT 15 MINUTES 01/01/2021 12:00:00 AM EDT ALESSIO ([facility]) Intermediate Eye Exam Established Patient (25) Interme diate Eye Exam Established Patient (25) 12/19/2020 12:00:00 AM EDT IZABEL (Paulino Duran MD [facility]) OPHTHALMIC US DX CORNEAL PACHYMETRY UNI/BI Corneal Pachymetr y ([place]) 12/19/2020 12:00:00 AM EDT IZABEL (Brandon Duran MD [facility]) COMPUTERIZED OPHTHALMIC IMAGING OPTIC NERVE Scodi, opt ic nerve with interpretation and report ([place]) 12/19/2020 12:00:00 AM EDT GR EENWAY (Brandon Duran MD [facility]) OFFICE OUTPATIENT VISIT 25 MINUTES 12/18/2020 12:00:00 AM EDT ALESSIO ([facility]) Needle electromyography, each extremity, with related paraspinal [...] MEDEN T ([facility], ) [address] Nerve conduction studies 13 or more studies NEW 201212/05/2020 12:00:00 AM EDT MEDANTHONY ([facility], ) OFFICE OUTPATIENT VISIT 25 MINUTES 12/04/2020 12:00:00 AM EDT MEDENT ([facility]) Needle electromyography, each extremity, with related paraspinal [...] MEDEN T ([facility], ) [address] Nerve conduction studies 13 or more studies [...] 25 MINUTES 10/01/2020 12:00:00 AM EST MEDENT ([facility]) Surgical / procedural history 1969, hystere ctomy 1975, Hernia 1975 Surgical / procedural history 1969, hysterectomy 1975, Hernia 197509/04/2020 12:00:00 AM EST I[facility]ABEL (Brandon dean MD [facility]) Medical Eye Exam Medical Eye Exam 09/04/2020 12:00:00 AM EST IZABEL (Brandon Duran MD [facility]) OFFICE OUTPATIENT VISIT 15 MINUTES 09/02/2020 12:00:00 AM EST [facility] ([facility]) THERAPEUTIC PROPHYLACTIC/DX INJECTION SUBQ/IM 08/15/19 12:00:00 AM EST [facility] ([facility]) Irrigation Of Bladder 06/19/2020 12:00:00 AM EST [facility] ([facility]) Irrigation Of Bladder 06/11/2020 12:00:00 AM EST [facility] ([facility]) Irrigation Of Bladder 06/04/2020 12:00:00 AM EST [facility] ([facility]) Irrigation Of Bladder 05/29/2020 12:00:00 AM EDT [facility] ([facility]) Results ID Date Data Source [id number] 05/20/2021 03:50:00 PM EDT [facility] ([facility]) Name Value Range Interpretation Code Description Data Yolette rce(s) Supporting Document(s) Respiratory Panel Laboratory test result [facility] ([facility]) This respiratory PCR panel detects Influ gabriel [...] - SARS-CoV-2 (COVID19) ID Date Data Source [id number] 05/20/2021 03:50:00 PM EDT [facility] Name Value Range Interpretation Code Description Data Yolette rce(s) Supporting Document(s) SARS-CoV-2 (COVID 19) NEGATIVE - SARS-CoV-2 (COVID19) [facility] This lab was ordered by [facility] a nd reported by [facility]. ID Date Data Source [id number] 04/11/2021 12:39:00 AM EDT [facility] FASTING: UNKNOWNReceived: 04/04/2021 at 03:32:00 QPT: [facility], [address], [address] [place], [address], Jose Daniel Agrawal MD Received: 04/04/2021 at 03:32:00 QPT : [facility], [address], [address] [facility], [place], [address], Jose Daniel Agrawal MD Received: 04/04/2021 at 03:32:00 AMD : [facility], [address], [place], [address], Feng Suarez M.D.,PhD Name Value Range Interpretation [...] is approximately 13% higher for peopleidentified as -German. eGFR NON-AFR. TOGOLESE 62 mL/min/1.73m2 > OR = 60 Normal [...] results) [facility] ID Date Data Source [id number] 04/11/2021 12:39:00 AM EDT [facility] FASTING: UNKNOWNReceived: 04/04/2021 at 03:32:00 QPT: [facility], [address], [address] [place], [address], Jose Daniel Agrawal MD Received: 04/04/2021 at 03:32:00 QPT : [facility], [address], [address] [place], [address], Jose Daniel Agrawal MD Received: 04/04/2021 at 03:32:00 AMD : [facility], [address], [place], [address], Feng Suarez M.D.,PhD Name Value Range Interpretation [...] results) [facility] ID Date Data Source [id number] 04/11/2021 12:39:00 AM EDT [facility] FASTING: UNKNOWNReceived: 04/04/2021 at 03:32:00 QPT: [facility], [address], [address] [place], [address], Jose Daniel Agrawal MD Received: 04/04/2021 at 03:32:00 QPT : [facility], [address], [address] [place], [address], Jose Daniel Agrawal MD Received: 04/04/2021 at 03:32:00 AMD : [facility], [address], [place], [address], Feng Suarez M.D.,PhD Name Value Range Interpretation Code Description Data Yolette rce(s) Supporting Document(s) Natriuretic peptide.B prohormone N-Terminal [Mass/volu me] in Serum or Plasma 149 pg/mL [facility] For Heart Failure (HF) diagnosis, refere nce ranges inpatients with dyspnea are based on Estefania MAR, Et al.Am Heraclio Cardiol. 2018;71:1122-5792.18-49 years:<= 300 pg/mL Normal, HF unlikely>= 450 [...] Clin Biochem. 2010;43:1405-10.For additional information, please refer [email or web address](This link is being provided for informational/educational purposes only.) ID Date Data Source [id number] 03/04/2021 11:15:00 AM [facility] KUBCLINICAL HISTORY: Constipation. Bloating. 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 [file] [place]/7cN7gKvTpDFDQ7VBQfejn1tye1UtsrXt4zCkmqyWrmuZAKtR3OGarRAU+X3B/Kxmx7lBU41Je0t7 [file] 4xvwdaYj92YYLGDNd7Z3ybrKEPpDVULRsC2/1qBk2SLGGBEudU/OJHelW/account underwriter/e0Y3k7e/2UcTeTYUZd [file] E5rza/erybongyQ+ZMPokjaODIxmZbA4pGxgim8/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 [file] vnzfmJ8SamFMwNuRsLD5uExaetvIfekxc2+HairE4YjfPTxp6+heat curer/RT8XeU/QxvgXKiRDq8FiOPEPWx LQPvOuv2rb+cFRWVsYELXY6m21MJO2WYiy1KArbzp9 nHtGhvOE6Iu501I5lfQWmoW6tM7pXPJe7MQY3AJKyPPMbRXmq4HV/rCg86j0fAJ/4J+CK0/JypKkByct gnj+jFc32vWcWfLKO0w13rmrjs7R58BRiHt3pouWoy9XSlspJK+r2SRjrj2Yd+mpR9eUJyG3fRC1gt01 0hMPMYSD+ykqrRpxpV8ZDtHjp3PN6zlAPV6Hf4BI8P 7BL2wolizwRIs0bmg8namu7JtekxqGKwbE5m6AIqYh/zZr3klcWtCnJxJb0SF01VhlXIYk4IZauUduIj 7J79fylQFvCJu5gNYDHlP5Rb7aXgmisG7O0Ws+9hA5lyCdnYheQrm4cRpuiArf82LHw7Qbehv0JyUCqb hIC9GPrkl3iS569oKQ9HPIu+wiEq8lEPEOzrCZriyt vwI2sg5m3Ovi5MOoVD2pgzOzkU/mR/oPJ+LmOKGr5kyPrcerrNQ1Ws4FQ9VY198qb48Lr7lKusTg9l4E ojaYsi1RgcE+Hig5pHI9oBBAtId/cXPJ3W9fmYvtAj9i9JKp6ti3k1vci7DB3TAbKLpxqgIgij9n6DBt 7MbP7WSmrnH7tjvuTzRZSPX52NLu4puYlvPzYKGhQk xqXhdVYrx2JTWr873ucgxOnBWAw/KYmsH76oBlj5L9Q+nMkkekkJ41v2LnBdQdgw1SqPtsoAlKp4NxbQ mwd9SmFiSJCGDn3FJgUeUaDFeyxoi1y02xrtJk0WF+UK8+8z6TPC+M2ZNr3FMg5FpWymF02/puLBLHb1 /1WIcaxG4qIBHbtwfe+Kes7ndRM5kyxiLe3ZsRnxk1 2KYPFOw4p6vXFbhaBwp554tUjA3dON2bRLFUJn0F2bDcPv888/WV5qmlWiM/Leela/qCe7VHbdIpomaFoJk bPswDkfkUDYLN5Z/RyX73zDOp8BQsdrxdqotiVRjKIyDvmrVXtL/F2W+kzJCrUsrfMqMuOBxUi+rF6hc oF3DQmpyGGb+QeYBF/jAfd+EygFI7AJldHC4hMcI/F g0EegHqF298ajW05d25nQ/FLODMKPqiQ89svHG50RWzS6ClfZwkIsb0263cVTAs+roCAPq6epIE9oxZc 4nU8+jzPVYtUzb6N+AC/bg86f9nNlSO5MuFOIX2oXfM1tpdr9x4OiLfAv+aYrgZkBZPN1omGqfnKNxeA hXxS6FChq/v23bTlWLQuCzmNH5cyP49Ib2v8NFxgRp 3QilIbOOX3Fe+RobnYJlwF1ggwj8q1TWgXGX04jv6x9fISIw0dkOUMOdlD3wOsVvZPeo+vtf3QQU62bW x4WpV3m+VRIFUvNNBoXDtC77GnL1/lkTalPSU+g2aOE4mhS9BqGnY+4yRiM0I8VQw9cAjdGCNd71b3Sn 99pJPg+Mm53IbFFBopL6/4FkwtrxddqcWn0bl6x7rx u2/9fZfymt8z7IZPAy0qnW6KwA1rxmBDNrBDWJzh0P07+CAROL+DsjUxi28VO3sImiQ2q4yYi8cuPy6uRln Q74+JrQh/GM5fwYakHrv8S3TpuMgGYdk2fU00YM1tVb9YGCPPhBQgfBNvuwmaGZR4wyX4jYl/nvS5TT0 3o/2BQNlO5QfW23AXrZtT3hlj0R+v8nJT2d+SS/w+Q lyqZybVMo9P5DPhkyR1Kn1AvGQEcVR1YgDxt4YCJ51nYdGFC/KnaMxv0JsmSYbYp6ad5wa2A8S9gvN+w sPOhdQprpvzd1POo/Q+f0fZSYe7y4jZ+C7pNrS76rIlXgXkLE4/FyPQZTy+MaYhFL9BMuF+fEnBy+OjF 71JMUnb8fiL5AKbdEUoQSvL0l7hmNmCC8afnvZ5NJQ JGfQNmTH5YWquij98yt85pW12UfkuKqZimymmgj+fIgABlwLnOsIy6NcbDygh1gIcbbm7Gxx5s6ZtKeL aFbZ8iozvAgnO5oCLY3XL+dUoBMsbNsjr9/npbFiO/4tvxOHi4Hk9PsVpurzxshsinR1Rflme/BzvchR KCHt4fF+mSfLROTd2Js9ZShv2tlEuWqvLDyexDE+[place] [file] tUUrWjgpkio33baBtrguXaslKArexH5eYMtRfr5 [file] Rodríguez+oN6x+675m0uhqMUZXQY9BzwUnqgnilZiSy0De/QvJnqyG8c5q5pUiYRDW744CqhTEXcsyLRVgy5X [file] 5VlDFdaTd4FxrAkDmz0SGixc3bzT2adHn4Sv8ebP18qHyR+Ak Chin+JgDbtqMKwkrv/Avg7jeRGQI62S0Vw [file] l8Vr3wdnaLY3/IKaQoS3u0gv99PxBdg/mobility architect manager/5x12rFfyNzjafRVf9TobjsT0Uu9hYVB4FPTZjg0ShLf [file] vGXRk/ONnXJqSXBdjXXlZql/journeyman welder+Vr7tvAhH/sD3AiMfWewaouTC8YghW3UeaxFnfEx3yG42sut9fivnq [file] NNGuTspz6p4J5hL9FriG7wriX7/r9dOJPebRj6nhDvr1QESVjuIFCq+internal medicine hospitalist+zs6c/gVbOgmLeyNwcXndfq [file] 2ZF67R3oJ9OxXrDho4w8Vk7KyiFlrZAOLVFOp/Uv2Vumi0Uj1K8nvv8jSZ9hCJRkphYxoy0c5Jh4+Radioisotope Technologist [file] dQlsHWwlM5vNsBOl+GtTLTDgr6L9n6Ni1AaGD4g5tmxU8Upnh4XtmNa6ehQxojcjkGTFwoHIAZXk+rubber stamp dies 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 [file] 4+378/mYEn/fIJ41nEzvJ04JjYLAWN/cx+yHk5BOA5OeCG2ZeAm0Asg3Mf4WmDhWffSFepjF6gg+[place] [file] journeyman mechanic/iGqFByMbcp/7L0TT9hXQEyESsdXfjzhqUcjSV4 [file] Ann Marie+YDI9DrkPMYKY0SxXdJxIbYn8W+inNcSqY34uXXs/QfwO8r66ii+7KFhDR40udl7TVjWe0SssOhUI [file] pGaaYqwEEA0ut2jvjcSW+Jose Luis+oWyiX1mWznyFZATWJL0xf7GHwYtLhQL/mIpmR3BMB7yThTLNkOtlczp [file] safety patrol officer+YSHaBFS0/r2Y10LDYfBLNBW8TJQjLbzEp86ar [file] RAILROAD CAR TRUCK BUILDER+5doTbxxsjIAq21sZ4NOP+EqnZTayqq9ODMAfb2qI3gM/YfloMAxzpKF3OAXpRuSmrnP6rHQVn28U6 [file] support tech/wh8X29 [file] 9O40Rx8/NPl/Ana Maria/F1ezMIZRtM+L1TZyBmfDt9epf8uGo8v7IsS4YrytMS5//5TDFhYEuBOkf2EgF4Yx [file] ndUv4AnTd90EHFzkDlC+fr8woxI/y71LhE/sfdc architect/OQaxmGd4iAKPHxIWd5ihDoVlL0QyE1QTMI7JAd2En [file] bU2CSzGGWa//07u1BiuTAeEc72longrwpn044LT [file] PYNiU6QZUSUOqRRz8pUUZUIIQHGZOlNlNSV7YMB1R3 RUP3LCJ3QDxLPoDyC2LNIl2tBu6qzSWbLBWeMv4WvfVrWQRhPHSJD5GamcXgJGfhPYhnYUJxTBTkAk2O IFsxIDQgMV0+HuY6mtElmC3ZjHasSWIlDZSuNPJcMEJMRT3CcNqTLMJjqYG3gi3McqEUa34ZukYlUQV6 PwxMLgeSvN//vLllGMTaXMFHgH1INV3iLYEtYnKGSC efpgTfnYMzSQ2BJbMpZE0zth9EQoV0BZP6fMWbIw7DINY3PMO1PX4YQZUXP0P= ID Date Data Source [id number] 02/28/2021 01:52:00 PM EDT [facility] ([facility]) Name Value Range Interpretation Code Description Data Yolette rce(s) Supporting Document(s) Respiratory Panel [facility] This respiratory PCR panel detects Influ gabriel [...] - SARS-CoV-2 (COVID19) ID Date Data Source [id number] 02/28/2021 01:52:00 PM EDT [facility] Name Value Range Interpretation Code Description Data Yolette rce(s) Supporting Document(s) SARS-CoV-2 (COVID 19) NEGATIVE - SARS-CoV-2 (COVID19) [facility] This lab was ordered by [facility] a nd reported by [facility]. ID Date Data Source [id number] 02/12/2021 09:56:00 AM EDT [facility] ([facility]) Name Value Range Interpretation Code Description Data Yolette rce(s) Supporting Document(s) Calcium [Moles/volume] in Serum or Plasma 9.6 mg/dL 8.8-10.2 [facility] ([facility]) ID Date Data Source [id number] 12/15/2020 04:32:00 PM EDT [facility] Name Value Range Interpretation Code Description Data Yolette rce(s) Supporting Document(s) SARS-CoV-2 (COVID 19) NEGATIVE - SARS-CoV-2 (COVID19) [facility] This lab was ordered by [facility] a nd reported by [facility]. ID Date Data Source [id number] 12/12/2020 06:39:00 PM EDT [facility] Name Value Range Interpretation Code Description Data Yolette rce(s) Supporting Document(s) SARS-CoV-2 (COVID 19) NEGATIVE - SARS-CoV-2 (COVID19) [facility] This lab was ordered by [facility] a nd reported by [facility]. ID Date Data Source [id number] 12/06/2020 01:08:00 PM EDT [facility] Name Value Range Interpretation Code Description Data Yolette rce(s) Supporting Document(s) Hemoglobin A1c 5.5 % Normal (applies to non-numeric r esults) [facility] ([facility]) <content>REFERENCE RANGES:</content><br/ ><content></content>
<content><=5.6% NORMAL</content>
<content>5.7-6.4% SUGGESTS IMPAIRED GLUCOSE METABOLISM/PREDIABETIC</content>
<content>>= 6.5% ABNORMAL</content>
<content></content> Estimated Average Glucose 111 mg/dL 60-110 Above high normal [facility] ([facility]) ID Date Data Source [id number] 12/06/2020 01:08:00 PM EDT [facility] ([facility]) Name Value Range Interpretation Code Description Data Yolette rce(s) Supporting Document(s) Blood Urea Nitrogen 21 mg/dL 7-18 Above high normal [facility] ([facility]) Glucose, Fasting 98 mg/dL 70-100 Normal (applies to non-numeric results) [facility] ([facility]) Creatinine For GFR 0.94 mg/dL 0.55-1.30 Normal (applies to non -numeric results) [facility] ([facility]) Glomerular Filtration Rate Laboratory test result Normal (applies to non- numeric results) [facility] ([facility]) <content>Units are mL/min/1.73 m2</content>
<content></content>
<content>Chronic Kidney Disease Staging per NKF:</content>
<content></content>
<content>Stage I & II GFR >=60 Normal to Mildly Decreased</content>
<content>Stage III GFR 30- 59 Moderately Decreased</content>
<content>Stage IV GFR 15-29 Severely Decreased</content>
<content>Stage V GFR <15 Very Little GFR Left</content>
<content>ESRD GFR <15 on CASINO ASSISTANT MANAGER</content>
<content></content> Potassium Serum 4.4 meq/L 3.5-5.1 Normal (applies to non-numeric results) [facility] ([facility]) Chloride Level 107 meq/L 98-107 Normal (applies to non-numeric r esults) [facility] ([facility]) Sodium Level 140 meq/L 136-145 Normal (applies to non-numeric res ults) [facility] ([facility]) Calcium Level 9.5 mg/dL 8.8-10.2 Normal (applies to non-numeric re sults) [facility] ([facility]) Anion Gap 4 meq/L 8-16 Below low normal [facility] ( [facility]) Carbon Dioxide Level 29 meq/L 21-32 Normal (applies to non-num juanito results) [facility] ([facility]) Alkaline Phosphatase 66 U/L 45-117 Normal (applies to non-num juanito results) [facility] ([facility]) Alt/SGPT 26 U/L 12-78 Normal (applies to non-numeric resul ts) [facility] ([facility]) Ast/Sgot 16 U/L 7-37 Normal (applies to non-numeric resul ts) [facility] ([facility]) Bilirubin,Total 0.8 mg/dL 0.2-1.0 Normal (applies to non-numeric results) [facility] ([facility]) Albumin 3.8 GM/DL 3.2-5.2 Normal (applies to non-numeric resul ts) [facility] ([facility]) Albumin/Globulin Ratio 1.1 1.2-2.2 Below low normal [facility] ([facility]) Total Protein 7.3 GM/DL 6.4-8.2 Normal (applies to non-numeric re sults) [facility] ([facility]) ID Date Data Source [id number] 12/06/2020 01:08:00 PM EDT [facility] ([facility]) Name Value Range Interpretation Code Description Data Yolette rce(s) Supporting Document(s) Creatine kinase [Enzymatic activity/volume] in Serum or Plasma 5 5 U/L 26-192 Normal (applies to non-numeric results) [facility] ([facility]) Erythrocyte sedimentation rate by Westergren method 33 mm/hr 0-30 Above high normal [facility] ([facility]) C reactive protein [Mass/volume] in Serum or Plasma by High sensitivity method 0.30 mg/dL 0.00-0.30 Normal (applies to non-numeric results) [facility] ([facility]) ID Date Data Source [id number] 12/06/2020 01:08:00 PM EDT [facility] ([facility]) Name Value Range Interpretation Code Description Data Yolette rce(s) Supporting Document(s) White Blood Count 6.2 10 4.0-10.0 Normal (applies to non-numeri c results) [facility] ([facility]) Red Blood Count 4.27 10 4.00-5.40 Normal (applies to non-numeric results) [facility] ([facility]) Hemoglobin 12.5 g/dL 12.0-15.5 Normal (applies to non-numeric resul ts) [facility] ([facility]) Mean Corpuscular Volume 92.3 fl 80.0-96.0 Normal ( applies to non-numeric results) [facility] ([facility]) Hematocrit 39.4 % 36.0-47.0 Normal (applies to non-numeric resul ts) [facility] ([facility]) Mean Corpuscular Hemoglobin 29.3 pg 27.0-33.0 Norm al (applies to non-numeric results) [facility]) Mean Corpuscular HGB Conc 31.7 g/dL 32.0-36.5 Below low normal [facility] ([facility]) Platelet Count, Automated 270 10 150-450 Normal (applies to non-numeric results) [facility] ([facility]) Red Cell Distribution Width 15.5 % 11.5-14.5 Above high normal [facility] ([facility]) Neutrophils % 67.1 % 36.0-66.0 Above high normal [facility] ([facility]) Lymph % 21.8 % 24.0-44.0 Below low normal [facility] ( [facility]) [place] % 7.1 % 2.0-8.0 Normal (applies to non-numeric resul ts) [facility] ([facility]) Baso % 0.8 % 0.0-1.0 Normal (applies to non-numeric resul ts) [facility] ([facility]) Eos % 2.9 % 0.0-3.0 Normal (applies to non-numeric resul ts) [facility] ([facility]) Nucleated Red Blood Cell % 0.0 % 0-0 Normal (applies to n on-numeric results) [facility] ([facility]) Immature Granulocyte % 0.3 % 0-3.0 Normal (applies to non-n umeric results) [facility] ([facility]) Neutrophils # 4.2 10 1.5-8.5 Normal (applies to non-numeric re sults) [facility] ([facility]) Lymph # 1.4 10 1.5-5.0 Below low normal [facility] ( [facility]) Eos # 0.2 10 0.0-0.5 Normal (applies to non-numeric resul ts) [facility] ([facility]) [place] # 0.4 10 0.0-0.8 Normal (applies to non-numeric resul ts) [facility] ([facility]) Baso # 0.1 10 0.0-0.2 Normal (applies to non-numeric resul ts) [facility] ([facility]) ID Date Data Source [id number] 11/26/2020 12:00:00 PM EDT [facility] Name Value Range Interpretation Code Description Data Yolette rce(s) Supporting Document(s) Follow Up [facility] SWUITj8iMqPCQkRuPHUjRclXSNrxXYgzMGBnZ6C4XYljLy7SLEttpyVkEPOnQt8+VHKpHF8qqb1aKHFy gMy [file] [place]/xwr+NU2GpCkzxD6EJ7O+JdO6cZ/WLA/kiBVzluc79LSTbU4LEJLb7BbM4lURosTZntgtCNwd/fzK [file] P+mfeF4Gb+eeo officer/bqfTbISFxyfcC56mpfh/c2AmtWRTrdaiZqJTRbYQGCH6jlGXHxllOJWRVa09HJHjDD [file] data security coordinator/bYzqKTxNWgdx1s2GFrvhE+dqSSesi/+hZP++ID3ubGXUMkz1ISMZ8AMHLn4lat23/PpTC+TLeSoI [file] junior account manager/lPyeR8wPTy6IQ0AMCIgwDzhiTRN7j8cdNMeoNtnGHASAWj2tibdBlb3bFa1FmLaTGbBixkX2u7qL [file] YnSgGTSbBRCpzzvpiKMVJOYJHrldbz8G5mijmzghol614/6uh6qvtfrN97baTdnugd4biemlZtX/mdrd ENVadmOu83uyJDl9cTObpz7t/k1PTYDHYWPfhdq1c/+oeuf8MlqjyaB47XZ30T9DmxydhaJC+9RZn8cB 9ox0f2geNvdtCqOehbeFpDdk0HnM2R3E0AZflj/0Yu h8luMu23HBrWuUQyFCxvUcvsrrvWPea3Abp7R2OkDcefey9giadXGmL/q6vKsLddxxmVNP20mqv4KdDD hN6aVeVh7scb2zYOJO6zS7qEfbcfgeQf2+rsbGz8/4B99y1QtGJ9tuFhCq0pY5dnHMqI80nOpuEz1T+U FAFumAA+9HujwozQXeptCIFlnGHBo/Kjj6iOhnl3Cc unz9nHQ/xmMQAyewNWvG45JfD+pwD2I4cHkunTYkdShC46v2H32mfMxaHxxwdDNEWf+Debn6GKHjwMyx 5+lkuYkRZbvH+ls+cX/lWcmhcgKHXTwhjnZ/WwarmXqarj4+siq/cIzHfKD6j5EyVS7/WkYoQXEMurL7 OePipfZ+mZ+/Rc+QTGwg06A4OubZzDhkqY2S6DQ+internal medicine hospitalist [file] KjdU7IQQP+Tyu/JnW7af/Nina+Marco Antonio/jmQeolcDz+i/o [file] LEATHER NOVELTY PARTS CUTTER/26O37eq3AQUrG3SSNDdvpVyJ/fnD0c+RD3dBj+ [file] BD7jZf6a5/beam doffer/xnNplTAR1e1rNyYLgNhFakqN/YHk9ghHssd754uBT+5bwLV/5o1tJ4v8eZcQl14rWF [file] F8t68oCLyQDVWDz6HSmGQ9+xtaWz0SVs0foXwdEe4PoC4GdDeK1O0AFkc7N4Pytl+q9Mk/guest laundry attendant+Ai6c36 [file] crIy2Pmx5t8R8vR2ERouQZvcTB8bhrDLqxI6/US6ZcPNu6djNgKmLP2Nm///82JNW5iCTrSeZ6/d 03bbCJiXZdcC5vo4/N1A6JMVGJ3M299q1SOgz0US5z 3KVX0yiL70QGqnoc6URlLx3vV2PZAY8CwdHXbQasp1AeG+5tt788Ze/7ducXm13f8BTYqiYxhpbk0RXm vLZaoa/yqU9aMiIkNKnIdmJaF5f8AM5I2vQAi+gVMMTUXWI/ED/TMxZZKsECn1+rhHXiHlYpvejOV+RAILROAD CAR TRUCK BUILDER [file] xhfV7+fZ/3e3ocr+srunx3Z27XzNYfls1Y7DWG4/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 [file] dKgMgYJMPo0cmFTzRReKnDtFZlCsoXcvq8XgRzIgbf0u+33T3z2jniCNxyAPa1LOO19SGMVtZset/CARE COMPANION [file] vK1i4SR8oXXZ2+LvYXEBXmYsUS7hwt+Siebel Administrator/Opo4zwwOOjcReMcV1Bdq182poBYcgmfs7p75+NDoJrkir [file] /wllu5C54d9XnChIWXLsyfdt+lCpQb35oqyd46/Jose E [file] jK9SYe9wND1nob1qNxT0o8JMfCWkg0GNti7acGynWKJ4Fdp1NmOE6d+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+8NmGR+NDfPtMkgKfhgmy7e [file] i+mohakmwOREOYF4zutI0HKKcEoikv2p/K3fjLMVwbmOdyX9p/HEfi2Gdox+bdY7m+MASON/dwhmWpJtcI u17pwG35byge+HadYSimr5xFYWK8eShHeM+LYUaYnhlw02Zf3PO1LROAHzzK0uHOzcu+IK6jEm594lU8 q6DY7o1vEx/69D/5ayCrbUpXctf/LZpfHPAHd/5IDO gAOk6AZNMG460BB8kYiD5/WQV0qQug17UH53cy/0xf6kiR+ZTA1jQxqlDaJSQ5cOLFmIL5vEhqRfgJtT T+E7VYosAc66gJdNc007A4vMpVo9xyIQEI+4xIRiSYfJFQw7AnkZw6NOWZcR8AeYvtpn8KgMFPoRHNSo CwngdHQDjk4pnL92m0SAU2qp2YCadJR4veM/JqSkrg mKUX4x5Duf1vLFvk+jzfJZXAAV6q5imZ54v8LiEpc8T/nEjFC/HQL9xLKdmcs43EaDyW86LRc2qlxBj3 lozRI5shRALiGegcO+n6rNKqZ6MjwpbqTTZNOas2knF6qoq36vrokR8OYlk5SqGSEOVUAW//fpyfz/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 4x9UqEHNleePb6eSrTllhjNkJLcfQpDhgLbyva0Dl2 L6an5Z5oUrvQQPg7PCTqjB79l364++JksoogzuguYDV/STEPHANIA/q31C4zto4GPKQm9l7vDfggMqD2E0TnRN [file] GLpHxH1Z0PQ4O9Y75dai/3fFDkGKl7/Sandra+heSn4XY+I+O6ZmoBvrZ/nuOp0QUCub7eEcxa1Mo/LGESI Q5T7+NdWv+TneekmIfOniHD/OyLC/1NEXgoEo+m12Hzzh/KTepuB8nxJ7OUQKOMFD402asePG0FBrWd5 TYS5+jwubQV0TiAc2vkOIPDaBAxX4bL6RUc5skcnCC bBsJ0cWa8iPx4zwfYQZfrVd9Rn+x/FQCCY+NM09TpeIjIc34OqnDAS0+LN8hwZA/xei91GrkXohETrLD voWrBrLfJCo8H4n8EUJjqa9jyi2BYCrHEeGQnAOF5iUEFhBVjuubXpETXka5T4qbTeUuZ6CFD4LhAedd bapp2s6JhFiUdGD0StKy7e4QIt//UAoOw0klLdzSdS oqfsCYzsZ1pT0144sEuXuzpF/gpFtVd90WMPzC4c1Wxi4icK/jX6csYbMUfoYhW4u+g5wIAMdqNt38ES +q/B0Q74uuEFJrQYdd6s5c9wN3VK14SmFTu6MkNXMnN4kZavg1VKqa6Vzg2qegAmGxCWR8TpnJ+A7CXH e+pZq3FXodp4kmlor3wNM4yCIY3tprcwv4qBwvdRLj zBGIyhNV8E4i7KxH1EtMijhiVdi0RpdUMEUqiX54NHwzvJA6RI8IoBCNky+/H9HHh/VrEPvdqr+pjX6z Ds1eMK3aUKfGaW6k0wFh5nw6G81CdXo8qzdg2NiEI66tRjG7X7ag2fj3vTucSHnIs2Cu+Brownfield Redevelopment Specialist+tYWuu6PS [file] y5kn3uorCpxlVFVfLcCqQdFseHp6K0bIONkGDLqrHcX7LYgTfo38xxkuYenzpWemiSWQFCX4/eB6N/internal medicine hospitalist [file] CPYfvWCA2VGS0ax2NpBDNaOFjgmsBcCfqLWOxnsZZyvNuoIKBXDiVmPkJ8GdOLBoJoIN9E ID Date Data Source [id number] 11/25/2020 12:04:00 PM EDT [facility] ([facility], ) Name Value Range Interpretation Code Description Data Yolette rce(s) Supporting Document(s) Antinuclear Antibodies Direct Laboratory test result [facility] ([facility], ) Performed at: [facility] [id number] Medical Specialist: Devante Nuñez MD, Phone: [phone] Performed at: [address] [id number] Medical Specialist: Melissa Guajardo MD, Phone: [phone] ID Date Data Source [id number] 11/25/2020 12:04:00 PM EDT [facility] ([facility], ) Name Value Range Interpretation Code Description Data Yolette rce(s) Supporting Document(s) Pyridoxine [Mass/volume] in Serum or Plasma 4.0 ug/L 2.0-32.8 [facility] ([facility], ) Specimen Comment: Test(s) 758915-Bnbbaqc E(Alpha Tocopherol); 979039- Specimen Comment: Vitamin E(Gamma Tocopherol); 924529-Ibhgzba B6; 679500- Specimen Comment: Vit. B1, Whole Blood Specimen Comment: was developed and its performance characteristics Specimen Comment: determined by [facility]. It has not been cleared or approved Specimen Comment: by the Food and Drug Administration. Thiamine [Mass/volume] in Blood 102.3 nmol/L 66.5-200.0 [facility] ([facility], ) Specimen Comment: Test(s) 107753-[employer] E(Alpha Tocopherol); 327076- Specimen Comment: Vitamin E(Gamma Tocopherol); 119580-Grxvofe B6; 404817- Specimen Comment: Vit. B1, Whole Blood Specimen Comment: was developed and its performance characteristics Specimen Comment: determined by [facility]. It has not been cleared or approved Specimen Comment: by the Food and Drug Administration. ID Date Data Source [id number] 11/25/2020 12:04:00 PM EDT [facility], ) Name Value Range Interpretation Code Description Data Yolette rce(s) Supporting Document(s) Vitamin E(Alpha Tocopherol) 10.2 mg/L 9.0-29.0 [facility] ) Vitamin E(Gamma Tocopherol) 3.5 mg/L 0.5-4.9 [facility] ([facility]) Reference intervals for alpha and gamma- tocopherol determined from National Health and Nutrition Examination Survey, 6782-0612. Individuals with alpha-tocopherol levels less than 5.0 mg/L are considered vitamin E deficient. ID Date Data Source [id number] 11/25/2020 12:04:00 PM EDT [facility], ) Name Value Range Interpretation Code Description Data Yolette rce(s) Supporting Document(s) PTT Lupus Type Anticoag Screen 1.1 0-1.2 [facility] ([facility]) RESULT IS LESS THAN 1.2, NO FURTHER [...] a specific inhibitor. ID Date Data Source [id number] 11/25/2020 12:04:00 PM EDT [facility], ) Name Value Range Interpretation Code Description Data Yolette rce(s) Supporting Document(s) Rheumatoid factor [Units/volume] in Serum or Plasma Laboratory test result [facility] ([facility], ) ID Date Data Source [id number] 11/25/2020 12:04:00 PM EDT [facility], ) Name Value Range Interpretation Code Description Data Yolette rce(s) Supporting Document(s) Folate 7.3 ng/mL [facility] ([facility], ) FOLATE NORMAL RANGE NORMAL GREATER THAN 5.4 NG/ML INDETERMINATE 3.4-5.4 NG/ML DEFICIENT LESS THAN 3.4 NG/ML Vitamin B12 Level 445 pg/mL [facility] ([facility], ) VITAMIN B12 NORMAL RANGE NORMAL 247 - 911 PG/ML INDETERMINATE 211 - 246 PG/ML DEFICIENT LESS THAN 211 PG/ML ID Date Data Source [id number] 11/25/2020 12:04:00 PM EDT [facility] ([facility], ) Name Value Range Interpretation Code Description Data Yolette rce(s) Supporting Document(s) Thyroxine (T4) free [Mass/volume] in Serum or Plasma 0.83 ng/dL 0.76- 1.46 [facility] ([facility], ) ID Date Data Source [id number] 11/25/2020 12:04:00 PM EDT [facility] ([facility]) Name Value Range Interpretation Code Description Data Yolette rce(s) Supporting Document(s) T Uptake 34 % 30-39 [facility] ([facility]) Thyroid Stimulating Hormone 2.290 uIU/ML 0.358-3.740 [facility] ([facility]) Thyroxine (T4) 6.3 ug/dL 4.5-12.0 [facility] ([facility]) Free Thyroxine Index 2.1 % 1.3-4.8 [facility] ([facility]) ID Date Data Source [id number] 11/25/2020 12:04:00 PM EDT [facility] ([facility]) Name Value Range Interpretation Code Description Data Yolette rce(s) Supporting Document(s) Albumin % 57.3 % 55.8-66.1 [facility] ([facility], ) Zoiab-4-Xlgbotck % 4.6 % 2.9-4.9 [facility] ([facility], ) Pkap-7-Hzlpbgapz % 5.7 % 4.7-7.2 [facility] ([facility], ) Jdtjl-7-Btuxyekos % 11.8 % 7.1-11.8 [facility] ([facility], ) Exfy-0-Wupeifmkw % 5.5 % 3.2-6.5 [facility] ([facility], ) Gamma Globulin % 15.1 % 11.1-18.8 [facility] ([facility], ) Albumin 4.24 GM/DL 3.29-5.55 [facility] ([facility]) Ybudq-1-Wotccakeh 0.34 GM/DL 0.17-0.41 [facility] ([facility]) Fqnbr-3-Horatligw 0.87 GM/DL 0.42-0.99 [facility] ([facility]) Gamma Globulins 1.12 GM/DL 0.65-1.58 [facility] ([facility]) Qnmq-1-Uweqamsyc 0.41 GM/DL 0.19-0.55 [facility] ([facility]) Dzjj-3-Iqtlybdbn 0.42 GM/DL 0.28-0.60 [facility] ([facility]) Spep Interpretation Laboratory test result [facility] ([facility]) NO M-SPIKE(S)NOTED. Total Protein 7.4 GM/DL 6.4-8.2 [facility] ([facility]) Laboratory test finding (navigational concept) Laboratory test result [facility] ([facility]) REV'D BY Cherie CAIN ID Date Data Source [id number] 11/25/2020 12:04:00 PM EDT [facility] ([facility]) Name Value Range Interpretation Code Description Data Yolette rce(s) Supporting Document(s) Hemoglobin A1c 6.2 % [facility]) <content>REFERENCE RANGES:</content><br/ ><content></content>
<content><=5.6% NORMAL</content>
<content>5.7-6.4% SUGGESTS IMPAIRED GLUCOSE METABOLISM/PREDIABETIC</content>
<content>>= 6.5% ABNORMAL</content>
<content></content> Estimated Average Glucose 131 mg/dL 60-110 [facility] ([facility]) ID Date Data Source [id number] 11/25/2020 12:04:00 PM EDT [facility]) Name Value Range Interpretation Code Description Data Yolette rce(s) Supporting Document(s) Erythrocyte sedimentation rate by 2H Westergren method 33 mm/hr 0-3 0 [facility] ([facility]) ID Date Data Source [facility] ANGIO CHEST 10/24/2020 12:00:00 AM EDT eCW1 ([facility]) Name Value Range Interpretation Code Description Data Yolette rce(s) Supporting Document(s) [facility] ANGIO CHEST eCW1 ([facility]) ID Date Data Source [facility] Chest, 2 view (PA\\Lat) 10/14/2020 12:00:00 AM EDT eCW1 ( [facility]) Name Value Range Interpretation Code Description Data Yolette rce(s) Supporting Document(s) [facility] Chest, 2 view (PA\\Lat) eCW 1 ([facility]) ID Date Data Source [id number] 10/09/2020 05:18:00 PM EST [facility] ([facility]) Name Value Range Interpretation Code Description Data Yolette rce(s) Supporting Document(s) Bacteria identified in Blood by Culture Laboratory test result [facility] ([facility]) No growth after 72 hours . All [...] method 35 mm/hr 0-30 Above high normal [facility] ([facility]) ID Date Data Source [id number] 10/09/2020 05:18:00 PM EST [facility] ([facility]) Name Value Range Interpretation Code Description Data Yolette rce(s) Supporting Document(s) Red Blood Count 4.72 10 4.00-5.40 Normal (applies to non-numeric results) [facility]) White Blood Count 7.5 10 4.0-10.0 Normal (applies to non-numeri c results) [facility] ([facility]) Hematocrit 41.5 % 36.0-47.0 Normal (applies to non-numeric resul ts) [facility] ([facility]) Hemoglobin 13.5 g/dL 12.0-15.5 Normal (applies to non-numeric resul ts) [facility] ([facility]) Mean Corpuscular Volume 87.9 fl 80.0-96.0 Normal ( applies to non-numeric results) [facility] ([facility]) Mean Corpuscular Hemoglobin 28.6 pg 27.0-33.0 Norm al (applies to non-numeric results) [facility] ([facility]) Mean Corpuscular HGB Conc 32.5 g/dL 32.0-36.5 Normal (applies to non-numeric results) [facility] ([facility]) Red Cell Distribution Width 13.7 % 11.5-14.5 Norm al (applies to non-numeric results) [facility] ([facility]) Platelet Count, Automated 233 10 150-450 Normal (applies to non-numeric results) [facility] ([facility]) Neutrophils % 67.6 % 36.0-66.0 Above high normal [facility] ([facility]) Lymph % 20.9 % 24.0-44.0 Below low normal [facility] ( [facility]) [place] % 8.2 % 2.0-8.0 Above high normal [facility] ([facility]) Eos % 2.5 % 0.0-3.0 Normal (applies to non-numeric resul ts) [facility] ([facility]) Baso % 0.4 % 0.0-1.0 Normal (applies to non-numeric resul ts) [facility] ([facility]) Immature Granulocyte % 0.4 % 0-3.0 Normal (applies to non-n umeric results) [facility] ([facility]) Neutrophils # 5.1 10 1.5-8.5 Normal (applies to non-numeric re sults) [facility] ([facility]) Nucleated Red Blood Cell % 0.0 % 0-0 Normal (applies to n on-numeric results) [facility] ([facility]) [place] # 0.6 10 0.0-0.8 Normal (applies to non-numeric resul ts) [facility] ([facility]) Lymph # 1.6 10 1.5-5.0 Normal (applies to non-numeric resul ts) [facility] ([facility]) Eos # 0.2 10 0.0-0.5 Normal (applies to non-numeric resul ts) [facility] ([facility]) Baso # 0.0 10 0.0-0.2 Normal (applies to non-numeric resul ts) [facility]) ID Date Data Source [id number] 10/09/2020 05:18:00 PM EST [facility] ([facility]) Name Value Range Interpretation Code Description Data Yolette rce(s) Supporting Document(s) Venous Partial Pressure Co2 49.8 mmHg 38.0-50.0 Norm al (applies to non-numeric results) [facility] ([facility]) Venous PH 7.386 units 7.330-7.430 Normal (applies to non-numeric res ults) [facility] ([facility]) Venous Partial Pressure O2 38.2 mmHg 30.0-50.0 Dipti l (applies to non-numeric results) [facility] ([facility]) Venous Total Co2 30.7 meq/L 24.0-28.0 Above high normal [facility] Venous Base Excess 3.2 Above high normal [facility] ([facility]) Venous Hco3 29.2 meq/L 23.0-27.0 Above high normal [facility] ([facility]) Venous O2 Saturation 71.8 % 60.0-80.0 Normal (applies to non-num juanito results) [facility] ([facility]) Venous Standard Hco3 26.7 meq/L Normal (applies to non-num juanito results) [facility] ([facility]) ID Date Data Source [id number] 10/09/2020 04:53:00 PM EST [facility] ([facility]) Name Value Range Interpretation Code Description Data Yolette rce(s) Supporting Document(s) Glucose, Fasting 110 mg/dL 70-100 Above high normal [facility] Blood Urea Nitrogen 21 mg/dL 7-18 Above high normal [facility] ([facility]) Creatinine For GFR 1.30 mg/dL 0.55-1.30 Normal (applies to non -numeric results) [facility] ([facility]) Glomerular Filtration Rate 42.6 Normal (applies to n on-numeric results) [facility] ([facility]) <content>Units are mL/min/1.73 m2</content>
<content></content>
<content>Chronic Kidney Disease Staging per NKF:</content>
<content></content>
<content>Stage I & II GFR >=60 Normal to Mildly Decreased</content>
<content>Stage III GFR 30- 59 Moderately Decreased</content>
<content>Stage IV GFR 15-29 Severely Decreased</content>
<content>Stage V GFR <15 Very Little GFR Left</content>
<content>ESRD GFR <15 on [employer]</content>
<content></content> Sodium Level 138 meq/L 136-145 Normal (applies to non-numeric res ults) [facility] ([facility]) Potassium Serum 4.1 meq/L 3.5-5.1 Normal (applies to non-numeric results) [facility] ([facility]) Chloride Level 103 meq/L 98-107 Normal (applies to non-numeric r esults) [facility] ([facility]) Carbon Dioxide Level 31 meq/L 21-32 Normal (applies to non-num juanito results) [facility] ([facility]) Anion Gap 4 meq/L 8-[address] [facility] Calcium Level 9.3 mg/dL 8.8-10.2 Normal (applies to non-numeric re sults) [facility]) ID Date Data Source [id number] 10/09/2020 04:53:00 PM EST [facility] ([facility]) Name Value Range Interpretation Code Description Data Yolette rce(s) Supporting Document(s) Alt/SGPT 24 U/L 12-78 Normal (applies to non-numeric resul ts) [facility] ([facility]) Ast/Sgot 17 U/L 7-37 Normal (applies to non-numeric resul ts) [facility] ([facility]) Alkaline Phosphatase 69 U/L 45-117 Normal (applies to non-num juanito results) [facility] ([facility]) Bilirubin,Total 0.5 mg/dL 0.2-1.0 Normal (applies to non-numeric results) [facility] ([facility]) Bilirubin,Direct 0.2 mg/dL 0.0-0.2 Normal (applies to non-numeric results) [facility]) Total Protein 7.7 GM/DL 6.4-8.2 Normal (applies to non-numeric re sults) [facility] ([facility]) Albumin 4.1 GM/DL 3.2-5.2 Normal (applies to non-numeric resul ts) [facility] ([facility]) Albumin/Globulin Ratio 1.1 1.2-2.2 Below low normal [facility] ([facility]) ID Date Data Source [id number] 10/09/2020 04:53:00 PM EST [facility]) Name Value Range Interpretation Code Description Data Yolette rce(s) Supporting Document(s) CPK Creatine Phosphokinase 53 U/L 26-192 Dipti l (applies to non-numeric results) [facility] ([facility]) CK-MB Value Mass Laboratory test result Normal ( applies to non-numeric results) [facility] ([facility]) MB/CK Relative Index 1.89 Normal (applies to non-num juanito results) [facility] ([facility]) <content>DIAGNOSIS CRITERIA</content>
<content>MMB ng/ml Relative Index (RI)</content>
<content>NON-AMI < or = 5 N/A</content>
<content>PEREIRA ZONE > 5 < or = 4</content>
<content>AMI > 5 > 4</content>
<content></content> Troponin I Laboratory test result Normal (applies to non-n umeric results) [facility] ([facility]) <content>Troponin I Reference Interval f or Siemens Reedy LOCI:</content>
<content></content>
<content>99th Percentile= 0.00-0.045 ng/ml</content>
<content></content>
<content>Risk Stratification:</content>
<content><= 0.10 ng/ml Decreased Risk for Adverse Clinical</content>
<content>Events.</content>
<content>0.10-1.50 ng/ml Increased Risk for Adverse Clinical</content>
<content>Events. Evaluation of additional</content>
<content>criterion and/or repeat testing in 2-6</content>
<content>hours is suggested to rule out myocardial</content>
<content>damage.</content>
<content>>= 1.50 ng/ml Indicative of Myocardial Injury.</content>
<content></content> ID Date Data Source [id number] 10/09/2020 04:53:00 PM EST [facility] ([facility]) Name Value Range Interpretation Code Description Data Yolette rce(s) Supporting Document(s) Lactate [Mass/volume] in Serum or Plasma 1.4 mmol/L 0.4-2.0 Normal (applies to non-numeric results) [facility] ([facility]) Y/N query for Sepsis Lactate Rule: Y ID Date Data Source [id number] 10/09/2020 04:53:00 PM EST [facility] ([facility]) Name Value Range Interpretation Code Description Data Yolette rce(s) Supporting Document(s) Fibrin D-dimer FEU [Mass/volume] in Platelet poor plasma Lab oratory test result Normal (applies to non-numeric results) [facility] ([facility]) ID Date Data Source [id number] 10/09/2020 04:53:00 PM EST [facility] ([facility]) Name Value Range Interpretation Code Description Data Yolette rce(s) Supporting Document(s) Prothrombin Time 29.0 s 12.5-14.3 Above high normal [facility] Inr 2.67 Normal (applies to non-numeric resul ts) [facility] ([facility]) THERAPUTIC HUMAN INR VALUES INDICATIONS NORMAL RANGES PROPHYLAXIS/TREATMENT OF: VENOUS THROMBOSIS 2.0-3.0 PULMONARY EMBOLISM 2.0-3.0 PREVENTION OF SYSTEMIC EMBOLISM FROM: TISSUE HEART VALVES 2.0-3.0 ACUTE MYOCARDIAL INFARCTION 2.0-3.0 VALVULAR HEART DISEASE 2.0-3.0 ATRIAL FIBRILLATION 2.0-3.0 MECHANICAL VALVES(HIGH RISK) 2.5-3.5 RECURRENT MYOCARDIAL INFARCTION 2.5-3.5 ID Date Data Source [id number] 10/09/2020 04:53:00 PM EST [facility] ([facility]) Name Value Range Interpretation Code Description Data Yolette rce(s) Supporting Document(s) Lactate dehydrogenase [Enzymatic activit y/volume] in Serum or Plasma by Lactate to pyruvate reaction 184 U/L 84-246 Normal (applies to non-numeric re sults) [facility] ([facility]) Natriuretic peptide.B prohormone N-Terminal [Mass/volu me] in Serum or Plasma 58 pg/mL Normal (applies to non-numeric results) [facility] ([facility]) Thyroxine (T4) [Mass/volume] in Serum or Plasma 10.2 ug/dL 4.5-12.0 Normal (applies to non-numeric results) [facility] ([facility]) Thyrotropin [Units/volume] in Serum or Plasma 2.880 uIU/ML 0. 358-3.740 Normal (applies to non-numeric results) [facility] ([facility]) Ferritin [Mass/volume] in Serum or Plasma 38 ng/mL 8-252 Normal (applies to non- numeric results) [facility]) C reactive protein [Mass/volume] in Serum or Plasma by High sensitivity method 0.30 mg/dL 0.00-0.30 Normal (applies to non-numeric results) [facility]) ID Date Data Source [id number] 10/06/2020 12:00:00 AM EST [facility] Name Value Range Interpretation Code Description Data Yolette rce(s) Supporting Document(s) Carestart Rapid COVID Antigen Test Positive [facility] This lab was reported by Wilson jansen. ID Date Data Source [id number] 08/31/2020 12:00:00 AM EST [facility] Name Value Range Interpretation Code Description Data Yolette rce(s) Supporting Document(s) SARS-CoV2 Rapid Antigen Negative [facility] This lab was ordered by [facility] and reported by [facility]. ID Date Data Source [id number] 08/12/2020 12:00:00 AM EST [facility] Name Value Range Interpretation Code Description Data Yolette rce(s) Supporting Document(s) Carestart Rapid COVID Antigen Test Negative [facility] This lab was reported by Wilson jansen. ID Date Data Source [id number] 08/12/2020 12:00:00 AM EST [facility] Name Value Range Interpretation Code Description Data Yolette rce(s) Supporting Document(s) SARS coronavirus 2 RNA [Presence] in Res piratory specimen by NATHALY with probe detection NEGATIVE [facility] This lab was ordered by Wilson Garcia and reported by [employer]. ID Date Data Source [id number] 08/01/2020 11:15:00 AM EST [facility] ID Date Data Source [id number] 08/01/2020 11:15:00 AM EST [facility] ([facility]) Name Value Range Interpretation Code Description Data Yolette rce(s) Supporting Document(s) Thyrotropin [Units/volume] in Serum or Plasma 2.060 uIU/ML 0. 358-3.740 Normal (applies to non-numeric results) [facility] ([facility]) Calcium [Mass/volume] in Serum or Plasma 9.0 mg/dL 8.8-10. 2 Normal (applies to non-numeric results) [facility] ([facility]) Calcidiol [Mass/volume] in Serum or Plasma 74.3 ng/mL 30.0- 100.0 Normal (applies to non-numeric results) [facility] ([facility]) ID Date Data Source [id number] 08/01/2020 09:41:00 AM EST [facility] ([facility]) Name Value Range Interpretation Code Description Data Yolette rce(s) Supporting Document(s) Inhouse Leukocytes Laboratory test result [facility] ([facility]) Inhouse Nitrite Laboratory test result [facility] ([facility]) Inhouse Urobilinogen Laboratory test result [facility] ([facility]) Inhouse Protein Laboratory test result [facility] ([facility]) Inhouse PH 5 [facility] ([facility]) Inhouse Hemoglobin Laboratory test result [facility] ([facility]) Inhouse Specific [place] 1.030 [facility] ([facility]) Inhouse Ketones Laboratory test result [facility] ([facility]) Inhouse Bilirubin Laboratory test result [facility] ([facility]) Inhouse Glucose Laboratory test result [facility] ([facility]) ID Date Data Source [id number] 08/01/2020 09:40:00 AM EST [facility] ([facility]) Name Value Range Interpretation Code Description Data Yolette rce(s) Supporting Document(s) Bacteria identified in Urine by Culture Laboratory test result Normal (applies to non-numeric results) [facility] ([facility]) <content>FULL REPORT IN LAB NOTES (eCW a [...] FOR ESBL</content>
<content></content> ID Date Data Source [id number] 07/08/2020 04:20:00 PM EST [facility] Name Value Range Interpretation Code Description Data Yolette rce(s) Supporting Document(s) SARS-CoV-2 (COVID 19) [facility] This lab was ordered by [facility] a nd reported by [facility]. ID Date Data Source [id number] 07/08/2020 04:20:00 PM EST [facility] ([facility]) Name Value Range Interpretation Code Description Data Yolette rce(s) Supporting Document(s) Respiratory Panel Laboratory test result [facility] ([facility]) This respiratory PCR panel detects Influ gabriel [...] - SARS-CoV-2 (COVID19) ID Date Data Source [id number] 07/08/2020 04:20:00 PM EST [facility] ([facility]) Name Value Range Interpretation Code Description Data Yolette rce(s) Supporting Document(s) Coronavirus 2019 Nasopharygeal Laboratory test result [facility] ([facility]) ID Date Data Source [id number] 05/28/2020 12:30:00 PM EDT [facility] Name Value Range Interpretation Code Description Data Yolette rce(s) Supporting Document(s) Follow Up [facility] [id number] y [file] [id number]+FLOOR COVERING INSTALLER+[id number] [file] [id number]+doctor of nursing practice+[id number] [file] f3IxQjqRf7BXaaUhGsV3rTyOTwJXtp0jYWy+phlebotomy support tech/XC [file] 1UyWC9vCYarjSoLZhFnueTqvTtsTQh7vhiATmZGVJy4uUBhbLRatNyNjfhAOH51BoPYv/Sustainability Officer/FUpQRDCj [file] YBF3Ck9arZSWUu5HKeUM5cM0zanA4/mary lou+//YY49sv [file] PwmoRXDZLvFFEH/Katlin+XhJqQnX0AK/foOWLzMW+Tn0jWcViVHZxQNn8pw5m4GLUVIvmf4tBkqp9kl7M MDPi6Wf1fdfxykX9XR0aYcdBhDXi6Qs3QUxF1KNPhe +iwKemtk5YdbrJcjl4/3xKqs+yqocNp1jduPKXdqdjkcgZCZSjmFP+wR2xM/uGAMZQRjRzTTlN5ShWRf UG/oYVWWbBKk2C9eP1NBsnLkvB4Kv/nqaH7++5pRDe2eIFTe/v+Eaw4jJ6mVejviCfCdhxXCdl0BGib9 X3I07uzZdDzbOrJsqoHfitBcQJqoco5MdSd2wVUWEM PmU0tzftRQAcG0mE8BfxZ3xq4xh+8+kQYlrFM2FbtFo0W95Cz7eZHlrVODYeoWAqFSCxP/gdqx4NGezn 7U1mEf9wgOee/pNpG79ZbM1LcTFCrVmi4Rwdtpof7VLCiIUucyp1wFHHzZ6SNMjQXOAxC2vjDwYB3iF3 EzvfudS8/CvAY7a1F8u1i3OSmpXY2Lda6wVfx14Pkq tcgOsStem2u2c6SHqia9vKWTy5J8H3BtnNYcbFEE2C1cNifwWLnX8sWGmLsEnvO9XZuvIKCUFJgilAQQ cSpyEdFowYN2iDq9XsE0pA5WlxUrgW0rkmHox9YaILYehHrC1Knx0gu9S8GemJok2t8sKE5A64PqOJ8+ JJRGYY/+/YMHSCAJwAPf8hZXn0HZuleCsdBheqp/zw DejKupToBVoZxt5zqABjeiDXHdBcOceq+RJ5IfSi54Zk3hFQ9rdTYCUv+3E1YCAzhiSLvDlO9Uapqay+ qHLL9X70tYgaIB/0ImuowNhI84Ob9QyS5axGDlzMwyDLUAPFFyZ5RuKqGEvRETJkC1/hHrKy5JCIluFM otcyl4XOQxSgH+/XkCoQlgLrlR9mWIO7TTxLiLaAx2 I17mRmD69D+IwneLN6ati4UTK90TEeQSAFg7H+smXn6GA+XnCoFZwc7ViU9wAmb/CCu4pAoEMrfOHrBl xrbdFpCn12C8l0PkoPy6I8hvwm/l4xena69qntd/GfLiaCrwf55/Valentín+NCMmna5h+AMMp8oHCzsL6odb [file] YTUhtR5NRxACPqfBGyAGQ5vF0zVKnh/F9hGvKZhKmLExELYZZk5chvVUx7GMDU5pz9Fn2vPfO+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/Vbq [file] /kTWOhnbk4q246kLHDr/uemA5md5fz6hKzTRcU5M22G72UUUsByx3wdE/riveter automobile brakes+XigdqK7rmLbhf+abl64 [file] esLrCop5jvSbo2u5+IDWoG89g+M5nR/ykkuiLbG/RAILROAD CAR TRUCK BUILDER [file] mPr+fmpbtbzcC/CyOE0yOd/CvlBpwJtsqiDxmZyHZUW2HiSPBO6Zg3/ayp3z9IRZjZ/FfycANLl+j+svp operations [file] Q92B3QQiq2LwWcwf/José Miguel+9mM/fe+3+D1H1GokCZ7nZhxVzbkQEKWWErsGUN9wyptSXrNtlhd8v1/Wzls eNIMcdvIxLM5mMtxGSD4V3hENvBK8AvUADmIQ1Uneu EjdlCt/0oOH707+88dgLuZxovo4RF3xlON4xwJvjUEclYsY37Kdky/Iqrt/jqXZT2lIpXMKOBnozcxv8 fk+GrmO2mYfHPyPCm6aY4tRGYb2JvTNAw72hOd1PUDq5pnwcva5Xop4tpzHwcBQ6ZZO1rydJFYXEcZ+b bMhcE4J6C/iq3OjRrgBQCmLpUgSuiBxRmli/baguiW Od1bpbU3HYMnXub9M7J/xOmII2zyvRliHMo5HyRndu7fcoIu6m7uXjX59C5QtPuHyWz7xkk+NGnXNeMS nzfHucGJwcJsaExBRLnWQ39mOs8ODLKLyy2Upbi9QiQ8ASVuazfpbx40Dvlndg/9ZiU7H9Pp7zv9Zjhx +jKjpHt06+wltKGa0I7UHwiPCWk86xlIK+Apv31V2/ OCyfup4prXiNiuSz27j4Ke/vxSAq0s2McQmkYMRv8duBCQRO9ekzv0iG4ihqkKBQgPPYPJEvApD0+UZD /José/VLURfiRQyW4Dg+YQ6DvHiSJEQlaORvjMALYsVJJ8k10Lgf1TpUpPYp1K/F0BUyUotZSMUtwR4uS [file] J47l+Snf+mLnR9hNQ+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/ZXpiK7l0vgPXJep5TemEiZeE4mEIKXsAPcvq2RQhGi8OnmqdLCx0Zhryzgr [file] NyB7VOj4tbRXDzhKm6dL7V5FbtrFOHPU1jk+ylBqJXFIJQdu9gnOvN0xKz+0tzRS93lRmhpoqdA33+internal medicine hospitalist [file] junior account manager+fK1BS6WoSRmqlDPjvOBqRE+JFh0pOiaHD9gR6T [file] XL4KhB6M+veMDmGjOdhJ6r/[place]/PHd2imclGjzVS+7G7AACTfj8qXTi5TBreTEDmqbxsKkLf2Hrh39Lb [file] vChc2PchIYfhsO32pdck4t9eklyA1O+BgDS8Yl/radiological technician [file] g+yUpyEes9FBP2mEpUzTq6wzhxntRjgq1aHam TLhevH/Y9GL7JeXE6OWSGKTcjp508I0Zz5YcL4ljJn+2v6PCT1Uo6RF4kD0SBjxtXD+/MjV6ORYkHsQ/ MCFlnQDGmOTb15mNuKmBoj30/JivsW7U/VdQ+4dAvc1PpD/1z11U8Ubf0ZLq6QRnkvqtWnX2eGYb/3e/ XKGHTBgFJQDszFMtWTNPV02C4vhnw/93Ck22F+kF0k H4PATgDBxqZK3+1Hw+9C113DddpjnjyxcVqpcteFghZPo2Az8x2qNTKAx2Plb599e6n8Oqnr97z0r5hI DjfwljI7zy674KoBWqjNRqZ3qXcxw2hmHSZ+jy77oEzb9nI8mKzJwI75M7aM3QiQ/t6zmqRa0oWmiTXS Jacob+aeuNmDiLpnKCdzKJvXc33YdQ6c1vV0GJrGLeRkK j83uEbDCMG7bhSDtfr2x084muXIQD7V+rknxF+3PMcxoL7Umo7wSOyCQXJP2DIbQykLUuJFyGEd3pba7 5BJLD2l2RMsVlTtVUEIiuX9hINtvhqSB/RAS5nU46JqiUWKD87jPIBPlMrh+xhtfYe7NASKMTv8nnc/R gOhhezR2rwig9/bi41z3NEJ7beUMfCy6WBCuTbYX8m BtcqWur3s/WAQLlKUotyrXikcY5xeT2JZE/g3hE0ZgxDBIApWuBcrHjOE24p0aHdXXrQElOeDYYezKxw jx9neSX/Z+jTh7u43mykyvECAfxfpJKgAa8lNh7QtRdzhL5n5jVAqIFinrjNb+VcgIa5ylWQEAHpqjHv 35/Ch4DXcdl991FIk64Ia40a85fHgkS8Mtdg4ewPB3 [file] B5njDkudAqOPeik9oLB999f8X6u+Brownfield Redevelopment Specialist+EoOvfQ7AgxnNofPa5lt2z/3N9uTSaaofRKLfeHVi4Nu5Li5KS [file] fyKtmbk8lRvOXF+Chaka+9QIEEr4wqJ+EMWA9hXbUMYKk1GMWqRaRb0dnTqNMs+WMJs/AKfmV0LZCghqZF EibkIAastyBy0T188Nd/N748+AoH1cgBGTdyyvXppM WlTC2JLQ7hl2VsYOU6SWGya1TsPHa5U7ouffr1rEIkUV1+p9ExJLEhRIamAcOsNhQtSWXkZcfcRXIyFV IgfTzrAX6zOSJZdudOVCutlmGxiPHvDM7UMA0lh9RuGRJ4WBMrw3GeJMi8M9YhzSHaszXjRwifgOGXTU MpGGOhTKBfX9UxEIhfO3hTOJp1QBFpEgT3SrWSPRsC VeW5SCAsZHZkYotBXsl4AEADDfv+OId1VnA5PVb1FNI3EFXMHDAKHVJ5UsOtCAQ8NOA6GRNlDp0dM4Ad z3RqUGMpJBCzCH8gfxGeTBYeBh8ZaOreQOK1Z3W4gTYgI4iQLYLoCoItBPE6ROGiMx7yoARwYF9NMqdf V8JrZPQmQVLHJCYDBwi+XHSRjQZrF4HcPpfKKa+DyH PaQJLjoQ+TJYmuA6hTIW5D7QBMSgrH0nMQvhwjGJFMVGZ7xE7dXRtrxlTpxTRbYI7VScBsFT7pdh1IUv A1TYH6dJMhSs7RPCgmWRt9GChjIHZTKs== ID Date Data Source [id number] 05/16/2020 08:57:52 AM EDT [facility] Current Problems: PERSONAL HISTORY OF TH ROMBOPHLEBITIS (ICD-V12.52) (ICD10- Z86.72)ROUTINE GENERAL MEDICAL EXAM@HEALTH CARE FACL (ICD-V70.0) (ICD10- Z00.00)FH LUNG CANCER (ICD-V16.1) (WRN15-R71.1)FH OTHER CANCER (ICD-V16.9) (BGS27-G92.9)FH STROKE (ICD-V17.1) (XIP36-W32.3)FH LUNG/RESPIRATORY DISEASE (ICD-V17.6) (AWD17-N40.6)FH HIGH CHOLESTEROL (ICD-V18.19) (ADE21-A79.49)FH HYPERTENSION (ICD-V17.49) (SCO54-I36.49)FH HEART DISEASE (ICD-V17.49) (ICD10- Z82.49)FAMILY HISTORY OF ANEMIA (ICD-V18.2) (WGS75-Y19.2)FAMILY HISTORY OF ALCOHOLISM (ICD-V61.41) (YJL65-U99.72)OSTEOPOROSIS (ICD-733.00) (RFA72-O63.0)HY PERTENSION (ICD-401.9) (NHL25-G90)G E R D (ICD-530.81) (GUS59-H32.9)DEPRESSION (ICD-311) (MPE90-X39.9)ANXIETY DISORDER (ICD-300.00) (IIZ19-M91.9)Problem list reviewed during this update.Current Medications: CHLORHEXIDINE GLUCONATE 0.12 % SOLN (CHLORHEXIDINE GLUCONATE) Rinse for 1 minute with 10mL before bed; Route: MOUTH/THROATKLONOPIN 0.5 MG ORAL TABLET (CLONAZEPAM) hsKLONOPIN 1 MG ORAL TABLET (CLONAZEPAM) 1 tidDRISDOL 57340 UNIT ORAL CAPSULE (ERGOCALCIFEROL) 1 tab po [...] MG ORAL TABLETKLONOPIN 1 MG ORAL TABLETDRISDOL 69368 UNIT ORAL CAPSULEDULCOLAX STOOL SOFTENER 100 MG [...] rce(s) Supporting Document(s) ID Date Data Source [id number] 05/15/2020 12:36:00 PM EDT [facility] (Parisi Woman PRINT FINISHER) Name Value Range Interpretation Code Description Data Yolette rce(s) Supporting Document(s) Urine Culture Result Laboratory test result [facility] (Parisi Woman PRINT FINISHER) <External Comment eCWMed> Laboratory test result [facility] (Parisi Woman PRINT FINISHER) FULL REPORT IN LAB NOTES (eCW and [facility] ). ID Date Data Source [id number] 05/15/2020 12:36:00 PM EDT [facility] (Parisi Woman PRINT FINISHER) Name Value Range Interpretation Code Description Data Yolette rce(s) Supporting Document(s) Appearance, Urine Laboratory test result [facility] (Parisi Woman PRINT FINISHER) Specific [place] Urine Auto 1.013 1.002-1.035 [facility] (Parisi Woman PRINT FINISHER) PH,Urine 5.0 units 5.0-9.0 [facility] (Parisi Woman O B/RESOURCE TEACHER) Color, Urine Laboratory test result MEDE NT (Parisi Woman PRINT FINISHER) Protein, Urine Auto Laboratory test result [facility] (Parisi Woman PRINT FINISHER) Ketone, Urine Auto Laboratory test result [facility] (Parisi Woman PRINT FINISHER) Glucose, Urine (Ua) Auto Laboratory test result [facility] (Parisi Woman PRINT FINISHER) Bilirubin, Urine Auto Laboratory test result [facility] (Parisi Woman PRINT FINISHER) Urobilinogen, Urine Auto 0.2 mg/dL 0.0-2.0 [facility] T (Parisi Woman PRINT FINISHER) Nitrite, Urine Auto Laboratory test result [facility] (Parisi Woman PRINT FINISHER) Blood, Urine Blood Laboratory test result [facility] (Parisi Woman PRINT FINISHER) Leukocyte Esterase, Urine Auto Laboratory test result [facility] (Parisi Woman PRINT FINISHER) WBC, Urine Auto 1 /HPF 0-3 [facility] (Isak Dean kim PRINT FINISHER) Squamous Epithelial Cell Ur AU 1 /HPF 0-6 [facility] (Parisi Woman PRINT FINISHER) Bacteria, Urine Auto Laboratory test result [facility] (Parisi Woman PRINT FINISHER) RBC, Urine Auto 2 /HPF 0-3 [facility] (Isak alvarez PRINT FINISHER) Mucus, Urine Laboratory test result [facility] NT (Parisi Woman PRINT FINISHER) Hyaline Cast, Urine Auto 1 /LPF 0-1 [facility] T (Isak Woman PRINT FINISHER) ID Date Data Source [id number] 05/15/2020 12:00:00 PM EDT [facility] (Isak Woman PRINT FINISHER) Name Value Range Interpretation Code Description Data Yolette rce(s) Supporting Document(s) TP Reflex HPV ASCUS Laboratory test result [facility] (Isak Browning PRINT FINISHER) SPECIMEN PART------ A. Vaginal, ThinPrep Pap (Tube Cleaning Operator) CYTOLOGY HX-------- Other Information: Hysterectomy FINAL DIAGNOSIS---- INTERPRETATION: Negative for Intraepithelial Lesion or Malignancy. SPECIMEN ADEQUACY:Satisfactory for evaluation. TP Reflex HPV ASCUS Laboratory test result [facility] (Isak Browning PRINT FINISHER) ID Date Data Source [id number] 04/09/2020 01:30:00 PM EDT [facility] Name Value Range Interpretation Code Description Data Yolette rce(s) Supporting Document(s) Follow Up [facility] KLHMRq2uFlMXOoBaCSMvHqmUQRhcBFpdZITvQ0L4AWimMp2FFVizkmUlETRmHk4+LKJaCD3att0sXHRo y [file] /RAILROAD CAR TRUCK BUILDER/+nOwN2lGMaEd/7y/YdEouox0RRKcNg9Z2OEah/Gtk+/u/eMX9bPgt/pYI4jsSw/Bcaio+dxWl/uN vq0byLRHWx82/+DuLYPiar5+2IJMGWZ6jlOIrHgfXP bHVUD3RTbUfdJIWVXnQaU7FMX37Q8V6SPvc/lLsFtRjRK4f03lzi9u+9b9cD+7oMVDm3gwpw0ygt58sb Xr3Xv9+vI/Wrn+bvcwQCkwkNVsTQA90QJee86n7UWc1hhQuKvRTybThsQZNV2zXGlTIrsY35pwGemqu9 R2bwaKaimxX970D4Qn3PzLimTrtkeKdz4W9PauSK5Q YFHbuMd4V0+TO7DuFGtgzHH5DgjorTjM8Oni65pGS6uM5npaMXpeStM53wiQ5bVxmM+AJpkRxWZOjBBO ap65m1bCAvxPW6Q4rm9W7hq/NYvzv7NA6hkPcpNXtisL1JlFXKUVQE2CvyC4RgSnYp3dI23gIo90gg39 lp+rJ7v4s6GSgfmQNQrh9oX8tB96C/KctqYXnS5yLK 6D+XFxaSc1/M8vqef59SE+g+NTpy+BMmM6agxV+IWerEYX+s3OTWJuswTDx/SM0k+xsuhbnN/SESg+D+ //LruKiryCHFN0wYGDl7m7X05xbb29OHDujzevqEsOdokqu5JRoN866KjzGkfE5M1nyPKc1xv5qa9GxW 37jGNpNmfmhWx+EM3Qay2JeLFtMRYTLQmoLDCtN3XA OIJqxEnK6E0GqIThCavn0jhy9j8//IfsoL//J3UMNl1282wz3fjwg3XiGObvTE+dQaMvLwwkv2c5le79 IF9P5g3HB25Dellp7ZO0idr2w7mWpXWYuOvZpoNdjyPZD7zd0kyApyyz/DXNtVrhifaCd4TtTXkqoQ43 dwrpQM0k4xvuyMQ0iVovYXWhOKLzfoNG+jRTl6kGaS B29NL8hi00PITf+tzTtv1y/thptXTFTtY7ddT9YlY4o7sCPeJiD1ot7Tx1SdE9+JyI+Lpi9c4gt2+julito nnwdRw+mJ17SxlmhBjymYSSQria5th2bU1xw0edy2vPxUNWIrCPIdxDe3P2p5R8t+QrpqnOS+zho8J8w YrO2fgOWryXSiVoRQtzC9CJcrZM8SY32SemJQtB7bJ tT+6TGroJRRxtiFGQ85IQ6LVpWAU9SJQFtprT5htdfSvDqbxIM59zq2XXvF6FFhdaPY3TAsH0ucSiPlh jl6ziCcCVXjkie18bAI4KtM757ae6cZF1mxurkYfdCOPtjAu3VwLgmd+ZTeN11vr2YUis7CzBQbtlNUY TQjy2djQIsfBtJaucCecXQj6d7vMff3wIpCbPF1rxp abtgAfkcjNrK/XGG3NhYz0djrJB84L8u0HfD4zVsyJ51tdmrP1vv4iYwlL2ruuhKu+7wf8kdtZ6BupUO 5aHYJw7PSuI8EvhWClzp0Yh+xFiyr884dZt5aFUjXn/CZFgRbpWWLAWVnvqK1fBhWC/Wfx7/yMXpaJ2h YYaD0splfCgcwe85kadkve8Kn9J5UqwIkpodxt475t [file] jZJnwzEeDrWZaMVUXZQM+Zo3FfJedYi1B1TPa0Mak/1zccI4l1jQm+r4r2qPqC6v+bLxyfboJM19k/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 [file] g0J6Qvk4GcEzKk8pWEOIQJEmuN9K0hEL6zkbaK+health and safety consultant Or2h3IBXcJO63U4EnRwgsQXsI4dQS7szD/G0V3fUbfAKz4XtLz3WSHxpFPda7d2EmoZ6yn/Zn83IABfy 4CgCXInE5p3shkJh/DfpY15NQ7h6IQc1UOhikd+8LqRn7x+fBocJ7gahbQqp5g+X3O/vAWY5xJgCjrTy zAeY6FTFpn6ArEt2/Czsrhl1tML9S4Ry8BUy/T1gMt iz0A6buFWu4qV/od2/+u+crDNkXFAlC36BgyIAZfN9KcjNioet0UEaxsHo21sO5saZWXPYtIz0Pouq+R HugQlfvtjBWjuXhGN8gd2KUbwaVYs+FIKVIAISIW7QleqLIcM4MRr5274P+1Lj3M1ZIvbixBrAdUnyI2 MKyF8B0iWiA+rEqwRUnvlp0Ev9TEppa2RcCVMUzseU KSxV0UWbuqTAilAwe+fAh8NGZvhmrBMOaXvfAm687iB9wbC4ZaqkxV8n1XofmqcziaRDH9wLrMqtogL9 Hna4uTnUSRS980IN2JpsESmQwK+YBHTMFnLdh6957A9mfXQ/nd+HO0W9rfl8k496A6COe2r3Uz78RMQl /HUcIO3TujvJlIA/GQVi5wYm//ARJy0RvJ4zOjeZft Y5sDpTyN58UIwZ3+1S8hRt5LMhkE9ABhveCge9yjNgvGvZdThRjJ6tjF4FilgfknZRIbcg1SFyJLcVl/ lDSnAWSFyhiye/K8nBAoe7C33IpuD6PO2blkYGghkP6R9GbficHq5AW2IVjDQcq/04/27OfMxfNEOcngT [file] SmgH1yX8rz7LA5Eck/BmxrGM9uaY21tM2rY8J8++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 [file] mAoxwKBPZUQrAVl5rJ6enholNrzFjjAI6Ztgr7qr2LY1PNqkakSMxV++j4/E+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/A0jHh6Nrw3MRnvic [file] P+Valentín+i6pdT5ldVqbmCfLdW36+j0aU4Sa6PDYu43IB [file] nCaBHYP5jYdU/Contract Assistant/QU6X8niQ9zDM1H2ECRSbyGklpdkmbX5Dk28x2OEoqdAGhPXfqNV6YMTxsV3yRLc [file] 9lmdxSJ20sspsg9BsVH/BmajibLOawmsIjxkiHuWKv jEO2gRxB9q7gjWoKdZ6NJ3nemVcp1/hnzgmqv7lAr/607YwNlecNSVwHPkiNmj/dh/pyVYfoOIZRCedg DivyyooDwdXi/ucnvauU1tFcvzs4RwJv0L99muIS9iMi3yJfPpS16bu6u9EVoDNhNGzf+uX4PioutPP9 qlU2ylX9JzP9RmZbB9TKunHV2wqyM3a+Z1G0byziMH un5CkxcjK5hmCMekt8I8sj7bPIGgd1a8jeflKUO42eaXe33Liw9pk/bTSABc/OYLn1cf7nAkG9TkOaJ6 0O13ENkb14BrBf5HigpyJ1KNbOFC4OlOf27T/wKShkm3v4WjeKEc/KG1SmthjXPUUN5N4Bui7MjcErTN YyW2d3Pbkz2JlP26MC+S3SpwlNn8h+agH+QqTPh511 qCcuvu/4ww11LjEUdP2njEPUmLbK76hyz4exd//8yWhzdsz/cWrmYQbBB25L7QgzZIKjxsaKlvjmY9u/ Xpu+5/6fQz0s635J5skGF3ZXYhWJjIjJYNi6DUWEOsCj/lAzkqOdo2bdpn8ppDLK2YdZpDttiAvjnwf0 tfy8GSckd3+Afn03jyHs1g/wpxxl9mx5DGZEGPkKxa RNktQnbhqLMQAf8COtVAWsk8oiyVZw9T/Cnv2lhk/e5hyp/Gso44ve0eukT+GNjPQ2t0hoN3E1+ufrvH bE58BaXO5U8l5TAJ+a1zHlk4VZ1nAymnSGIYAEF6YNaQtKbs2BukCLugdDkLboR6HM32khh2wVKmptG8 J979clyTqYVUu5sCZDtMUBzFIqJt8C2674lMdjXHp6 taUQU1kNoQKuKlN7q3+leNU1QDoWmOP9SKGtR1U2cEfQM6vnb3YrZnC+ToPfExh4c4ySxqUthytX3hVR wSDGDOuBnIWrrj5Z+nTuOcmvboxoXOvB11eC/NoQuGZe2fgJARZtrinxUKg8co/B2MDN7tsvLXeJ6Wgh L/2luCvDXBYT0vs/l0p588KSD/LVnxGibLGhx [file] GjV4DfO7skXwpQjxjQGBhP6f/lszmB+ground systems engineer/nGrCs9soDknVI6lawrsdjMqSidH10Vx/jD2Nm+yWm+VR [file] RHZcK0SI715gxWTz4K/jR9iVm1q0DZld+EWSsIsz4tCjvFj7d//kq0I83x8JbGLdSAd+swQdp7Pzl/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 [file] mipurEJjZJCsWily+U4u1VhWPUXt2Zl8v3wX/9NJ/87LWE/+0PD6mGKGqsxz1u83PMp1bD2kAZH1O PeOtxio0jutfpj63Yd31GU5ujZIUi+krqYtLnUh6S+yTlduHFzroNS8U+BB/6RDkED9kwVGBe7po8LDM [employer] Redevelopment Specialist+TLn9fba3dr7lrGGYQkphhkFwLWILs/uJKeaJ0yW [file] Brown[employer] Redevelopment Specialist/e04vKce0ESbQ2PC/hnse5IOkzuhfJRV1/nKxrSI [file] LmlprG9Q/lcN+T2i+ul+HY7ko3k4UVyzHTNAct+bonding molder FZFrMY8IjxUd5yu3oaa4ysIFW6njxkm27i//+G/HA0O63GUkyQ8SgKjv5kDBCulO4cMq5oc7b9+lgqKr Luwyt3pcRCBg8WazjHsxi6TsM/kxwvIRIMS5zCJRoJfBDEk9PqznwrR2MJ1qcvykW9z4/FC7h2gLHQL0 DgIihiYo/GEd81+hmu/fYw/JeU1q47TIamLuRLThZX MhDgDLxfG5T8/qFOZ/UpdDf2WvaA/BoHdd2wq9fl34yBGorunjk+ShH/CoktnmtSlWsm2ho5o8sBQgVw /5Ryv7zjdzaKv4g7V9t4Nun+aWMWsByRna/Hvm5SgmYnav4W53viK5t42I6iZL9FVuC5ooOdmrDpo4s7 n6KdLYW96b8fszWv9D8DEQ2JoN2DBPqI+ss9730esX Yqv/hCl3p3EGF+4Ny4384M06b1QD4ksY578P4+LB9x7+jJ16rsYh0Uebvn8ai85DZdsWqzLdcRh9tYtz ouRnleMsKGRkncTKCiIU1QrkkMYlacEoknrXbNBXRkJpl8oqRiyB19SVBwXr577GTFBqj60Z7swUUPgk ia6l/tThBdVvobt8v9r/VTO/sYo4lNgTgWWvsYU1VR OAsnj/X13CbVhcHvI1czqkLGpLx9VsrSpM0J5WQo305Hd83aGI9VcKWzrKCh02Ba/STRHCOdy3zw9JZm w2+uzlCi0z2yz5w0s8byIEkhssRU3drn/iNtmLQcDzgG7x63IvgQMZsXazYlxnYSgfDU34iT7vnAgMNp yP5cwOYeRlblScnkrgijfjexMafIsh7mINTOLrVACd uu5lb0YWi7UWOZGrOoyOmrA8cj2hh0n7xQaATVIfFegW/gracie/lp47mNmuaaybHyn8mApMMISG5DxZbPR [file] BzwONRHjdb/iU5//KgFtA9U9+JdyLdwzNo03dku [file] barnworker groom+6sdLaFaaKRx9sVHdzxPhiZe3Ho4nsXUiGMrrF4MTP9SwLMjq9cJUbHZS/8w5UHbAnw6Q61d2LDdq [file] IfOjgkZPqs0f71hD7NhyzOzoFpU3+xbVHYlKw/drVA2H+J7TEdl9YnKQjr0v4XfYN2G8EzvnCp0vE+internal medicine hospitalist [file] Mary [file] 2zMwOcG3bjND8H1ncq/vzJ0/9ygc3huznyyErY/[place] fhi40jv4Q3n9kfMDD8d1t13srvhed417oJkzlNfUmyoQQua09T+PJFHVaE9dG9INEYVoE62d0VN5/f3d Xx5yzY9Rb7Tkt1GuCbipdSSa94p/XrHFKkZ0CqgKa9FdTcQPVS0oOEziMDJ3oJ5c8xp2K3iyc1NQrTu4 BDJ7oc2ijiLcMzeJvG2VPdwPZSrfgeJJr/Qx8eFr1t 5d3xiSbO7bwC4sKu4jsxIbpvJnmVwRfGnbH29tkysRXHH83vw5xHBpbXRUAqlG10kHZ7+EEk7aboQ0km ViY96SgoKQ08cINYGo9FkzRa/GyB4PCkf6MwszC1W5k9V0jhqbTD/MDyIOHpah/h9mwkjc7+W9VKpw7x 3RsYSD92IMVhYmWCrjnutrzWn9OTDDsgY/6kYhxUif dDIloW3yuLLnO5Sk9wtQDkOlb6b+dWyZricsIzFTImWJ+Ra6JZb8KvpJatMxGM1ESn+fVpjsPgeRx8A0 YZb6CSIU5XUAy5XRDrX3YHkccR0IHOEQ0J+L4WFW9m9Fr7O6yLr+hos+TjAXehQZmyzE/VKFHtc7yXWa kyVImq4ywnGoZMmjG/0TCaSgZ2mbr6HkrfQB3v5Z8A 0ZE+1PlSHlJisBmhKf97pv9jaZ1QcC8WgHDkMugp3/7cfEGM3yzdFBJqjLhusSWHZCxwJW2y2VM4SfSM 7KubN14iGAKUJKKRtWKXo2VkFa32i2yN8pn3xFJVe6g458rqLcXHSbDtOsVvXmwINx3ahsCgpyLdpU8w awTFI37uaZWKJT8vpMEb5zKIdkucVHrKnd1320LlYu bLT/JHLclWCAhWu6yACHs0zfGlqYwkwX1ICyrMCbUzf8b1LtlXbZLh5+Whz4Lfvz48IDUZua3fusnjFm journeyman welder/qSOEH8L0k762KXjBLWF6FukxrzWVjwBDCJeKtTUaeX8mWMBv9R446dJ4fzRRr1SM3XE/nlFJdCwbq [file] A9bzHrYJzsLPL9NqpbILmbOAJCIa== Procedure Social History Code Duration Value Status Description Data Source(s ) Smoking 02/13/2021 12:00:00 AM EDT Patient is a former smoker completed Patient is a [facility] sm[facility], [facility] Alcohol intake 01/16/2021 12:00:00 AM EDT Current non-d mike of alcohol (finding) completed Current non-drinker of alcohol (finding) [facility] Smoking 12/19/2020 09:41:25 AM EDT Ex-smoker (finding) [facility] Ex-smoker (finding) [facility] (Brandon Duran MD [facility]) Smoking 08/15/2020 12:00:00 AM EST Patient is a former smoker completed Patient is a former smoker [facility]) Smoking 05/15/2020 12:00:00 AM EDT Patient is a former smoker completed Patient is a former smoker [facility] ([facility] [employer]) Smoking 05/03/2020 12:00:00 AM EDT Patient has never smoked co mpleted Patient has never smoked [facility] ([facility], [facility]) Alcohol intake 04/17/2020 12:00:00 AM EDT No completed [facility] Smoking 04/17/2020 12:00:00 AM EDT Former smoker completed Former smoker [facility] Vital Signs ID Date Data Source UNK Name Value Range Interpretation Code Description Data Source(s) Body height 63.7 [in_i] 63.7 [in_i] [facility] ([facility]) 5'3.70" Systolic blood pressure 124 mm[Hg] 124 mm[Hg] M [facility] ([facility]) Heart rate 82 /min 82 /min [facility] ([facility]) [place] body weight 115 [lb_av] 115 [lb_av] [facility] ([facility]) Diastolic blood pressure 68 mm[Hg] 68 mm[Hg] [facility] ([facility]) Body weight 156.00 [lb_av] 156.00 [lb_av] [facility] ([facility]) Body mass index (BMI) [Ratio] 27.0 kg/m2 27.0 k g/m2 [facility] ([facility]) Respiratory rate 18 /min 18 /min [facility] ( [facility]) Body temperature 98.7 [degF] 98.7 [degF] [facility] Oxygen saturation in Arterial blood by Pulse oximetry 97 % 97 % [facility] ([facility]) Body height 63.7 [in_i] 63.7 [in_i] [facility] ([facility]) 5'3.70" Diastolic blood pressure 76 mm[Hg] 76 mm[Hg] [facility] ([facility]) Systolic blood pressure 138 mm[Hg] 138 mm[Hg] M [facility] ([facility]) Heart rate 86 /min 86 /min [facility] ([facility]) Respiratory rate 20 /min 20 /min [facility] ( [facility]) Body temperature 98.0 [degF] 98.0 [degF] [facility] ([facility]) Oxygen saturation in Arterial blood by Pulse oximetry 97 % 97 % [facility] ([facility]) [place] body weight 115 [lb_av] 115 [lb_av] [facility] ([facility]) Body weight 153.38 [lb_av] 153.38 [lb_av] [facility] ([facility]) Respiratory rate 18 /min 18 /min [facility] ( [facility]) Systolic blood pressure 138 mm[Hg] 138 mm[Hg] M [facility] ([facility]) Diastolic blood pressure 76 mm[Hg] 76 mm[Hg] [facility] ([facility]) Body height 63.7 [in_i] 63.7 [in_i] [facility] ([facility]) 5'3.70" Body temperature 98.4 [degF] 98.4 [degF] [facility] ([facility]) Oxygen saturation in Arterial blood by Pulse oximetry 97 % 97 % [facility] [place] body weight 115 [lb_av] 115 [lb_av] [facility] ([facility]) Body mass index (BMI) [Ratio] 26.6 kg/m2 26.6 k g/m2 [facility] ([facility]) Heart rate 82 /min 82 /min [facility] ([facility]) Respiratory rate 18 /min 18 /min [facility] ( [facility]) Heart rate 84 /min 84 /min [facility] ([facility]) Body temperature 98.4 [degF] 98.4 [degF] [facility] ([facility]) Oxygen saturation in Arterial blood by Pulse oximetry 98 % 98 % [facility] ([facility]) [place] body weight 115 [lb_av] 115 [lb_av] [facility] ([facility]) Systolic blood pressure 128 mm[Hg] 128 mm[Hg] M [facility] ([facility]) Diastolic blood pressure 78 mm[Hg] 78 mm[Hg] [facility] ([facility]) Body height 63.7 [in_i] 63.7 [in_i] [facility] ([facility]) 5'3.70" Body weight 152.38 [lb_av] 152.38 [lb_av] [facility] ([facility]) Body mass index (BMI) [Ratio] 26.4 kg/m2 26.4 k g/m2 [facility] ([facility]) Body height 63.7 [in_i] 63.7 [in_i] [facility] ([facility]) 5'3.70" Systolic blood pressure 140 mm[Hg] 140 mm[Hg] M [facility] ([facility]) Body mass index (BMI) [Ratio] 25.8 kg/m2 25.8 k g/m2 [facility] ([facility]) Oxygen saturation in Arterial blood by Pulse oximetry 98 % 98 % [facility] ([facility]) Diastolic blood pressure 78 mm[Hg] 78 mm[Hg] [facility] ([facility]) Body weight 149.12 [lb_av] 149.12 [lb_av] [facility] ([facility]) Heart rate 72 /min 72 /min [facility] ([facility]) Body temperature 97.6 [degF] 97.6 [degF] [facility] ([facility]) [place] body weight 115 [lb_av] 115 [lb_av] [facility] ([facility]) Respiratory rate 16 /min 16 /min [facility] ( [facility]) Systolic blood pressure 120 mm[Hg] 120 mm[Hg] [facility] Body weight 151.25 [lb_av] 151.25 [lb_av] [facility] ([facility]) Body mass index (BMI) [Ratio] 26.2 kg/m2 26.2 k g/m2 [facility] ([facility]) Heart rate 62 /min 62 /min [facility] ([facility]) Respiratory rate 14 /min 14 /min [facility] ( [facility]) Diastolic blood pressure 68 mm[Hg] 68 mm[Hg] [facility] ([facility]) Body height 63.7 [in_i] 63.7 [in_i] [facility] ([facility]) 5'3.70" Body temperature 97.8 [degF] 97.8 [degF] [facility] ([facility]) Oxygen saturation in Arterial blood by Pulse oximetry 98 % 98 % [facility] ([facility]) [place] body weight 115 [lb_av] 115 [lb_av] [facility] ([facility]) Systolic blood pressure 122 mm[Hg] 122 mm[Hg] [facility] Diastolic blood pressure 60 mm[Hg] 60 mm[Hg] [facility] ([facility]) Body height 64 [in_i] 64 [in_i] [facility] ([facility]) 5'4" Body weight 151.19 [lb_av] 151.19 [lb_av] [facility] ([facility]) Body mass index (BMI) [Ratio] 25.9 kg/m2 25.9 k g/m2 [facility] [place] body weight 120 [lb_av] 120 [lb_av] [facility] ([facility], ) Oxygen saturation in Arterial blood by Pulse oximetry 96 % 96 % [facility] ([facility], ) Room Air Body height 64 [in_i] 64 [in_i] [facility] ([facility], ) 5'4" Systolic blood pressure 110 mm[Hg] 110 mm[Hg] M [facility] ([facility], ) Diastolic blood pressure 70 mm[Hg] 70 mm[Hg] [facility] [facility], [facility] Heart rate 71 /min 71 /min [facility] ([facility], ) [place] body weight 120 [lb_av] 120 [lb_av] MEDEN T ([facility], ) Systolic blood pressure 126 mm[Hg] 126 mm[Hg] M [facility] ([facility], ) Body weight 68.947 kg 68.947 kg [facility] ([facility], ) Body surface area Derived from formula 1.74 m2 1.74 m2 [facility] ([facility], ) Diastolic blood pressure 70 mm[Hg] 70 mm[Hg] [facility] ([facility], ) Heart rate 78 /min 78 /min MEDENT ([facility]) Oxygen saturation in Arterial blood by Pulse oximetry 95 % 95 % [facility] ([facility]) Body height 64 [in_i] 64 [in_i] [facility] ([facility]) 5'4" Body weight 152.00 [lb_av] 152.00 [lb_av] MEDEN T ([facility]) Body mass index (BMI) [Ratio] 26.1 kg/m2 26.1 k g/m2 [facility] ([facility]) Oxygen saturation in Arterial blood by Pulse oximetry 95 % 95 % [facility] ([facility]) Body height 64 [in_i] 64 [in_i] [facility] ([facility]) 5'4" Body weight 152.00 [lb_av] 152.00 [lb_av] [facility] Body mass index (BMI) [Ratio] 26.1 kg/m2 26.1 k g/m2 [facility] ([facility]) [place] body weight 120 [lb_av] 120 [lb_av] [facility] Body weight 68.947 kg 68.947 kg [facility] ([facility]) Body surface area Derived from formula 1.74 m2 1.74 m2 [facility] ([facility]) Systolic blood pressure 128 mm[Hg] 128 mm[Hg] [facility] Diastolic blood pressure 80 mm[Hg] 80 mm[Hg] [facility] Oxygen saturation in Arterial blood by Pulse oximetry 100 % 100 % [facility] Heart rate 77 /min 77 /min [facility] Body height 162.6 cm 162.6 cm [facility] Body weight 68.947 kg 68.947 kg [facility] Body mass index (BMI) [Ratio] 26.09 kg/m2 26.09 kg/m2 [facility] Systolic blood pressure 126 mm[Hg] 126 mm[Hg] Lilibeth MONTILLA ([facility]) Diastolic blood pressure 72 mm[Hg] 72 mm[Hg] [facility] ([facility]) Body height 63.7 [in_i] 63.7 [in_i] MED[facility] ([facility]) 5'3.70" Body weight 151.12 [lb_av] 151.12 [lb_av] MEDEN T ([facility]) Body mass index (BMI) [Ratio] 26.2 kg/m2 26.2 k g/m2 [facility] ([facility]) Heart rate 81 /min 81 /min [facility] ([facility]) Respiratory rate 18 /min 18 /min [facility] ( [facility]) Body temperature 97.9 [degF] 97.9 [degF] [facility] ([facility]) Oxygen saturation in Arterial blood by Pulse oximetry 96 % 96 % [facility] ([facility]) [place] body weight 115 [lb_av] 115 [lb_av] MEDEN T ([facility]) Body mass index (BMI) [Ratio] 25.8 kg/m2 25.8 k g/m2 [facility] ([facility]) Diastolic blood pressure 68 mm[Hg] 68 mm[Hg] [facility] ([facility]) Respiratory rate 18 /min 18 /min [facility] ( [facility]) Systolic blood pressure 118 mm[Hg] 118 mm[Hg] M EDENT ([facility]) Body height 63.7 [in_i] 63.7 [in_i] MED[facility] ([facility]) 5'3.70" Body weight 149.12 [lb_av] 149.12 [lb_av] MEDEN T ([facility]) Heart rate 86 /min 86 /min [facility] ([facility]) Body temperature 98.6 [degF] 98.6 [degF] [facility] ([facility]) Oxygen saturation in Arterial blood by Pulse oximetry 95 % 95 % [facility] ([facility]) [place] body weight 115 [lb_av] 115 [lb_av] MEDEN T ([facility]) Diastolic blood pressure 78 mm[Hg] 78 mm[Hg] [facility] ([facility]) Systolic blood pressure 132 mm[Hg] 132 mm[Hg] M EDENT ([facility]) Oxygen saturation in Arterial blood by Pulse oximetry 96 % 96 % [facility] ([facility]) [place] body weight 115 [lb_av] 115 [lb_av] MEDEN T ([facility]) Body height 63.7 [in_i] 63.7 [in_i] [facility] ([facility]) 5'3.70" Body weight 151.38 [lb_av] 151.38 [lb_av] MEDEN T ([facility]) Body mass index (BMI) [Ratio] 26.2 kg/m2 26.2 k g/m2 [facility] ([facility]) Heart rate 87 /min 87 /min [facility] ([facility]) Respiratory rate 20 /min 20 /min [facility] ( [facility]) Body temperature 98.1 [degF] 98.1 [degF] [facility] ([facility]) Body weight 149 [lb_av] 149 [lb_av] eCW1 ([facility]) Body height 64 [in_i] 64 [in_i] eCW1 ([facility]) Body mass index (BMI) [Ratio] 25.57 kg/m2 25.57 kg/m2 W1 ([facility]) Heart rate 79 /min 79 /min eCW1 ([facility]) Respiratory rate 18 /min 18 /min eCW1 ([facility]) Body temperature 98.5 [degF] 98.5 [degF] eCW1 ( [facility]) Systolic blood pressure 146 mm[Hg] 146 mm[Hg] e CW1 ([facility]) Diastolic blood pressure 65 mm[Hg] 65 mm[Hg] eCW1 ([facility]) Body weight 149.2 [lb_av] 149.2 [lb_av] eCW1 ([facility]) Body mass index (BMI) [Ratio] 25.61 kg/m2 25.61 kg/m2 eCW1 ([facility]) Heart rate 71 /min 71 /min eCW1 ([facility]) Body height 64 [in_i] 64 [in_i] eCW1 ([facility]) Respiratory rate 17 /min 17 /min eCW1 ([facility]) Body temperature 97.8 [degF] 97.8 [degF] eCW1 ( [facility]) Systolic blood pressure 154 mm[Hg] 154 mm[Hg] e CW1 ([facility]) Diastolic blood pressure 82 mm[Hg] 82 mm[Hg] eCW1 ([facility]) Body weight 153 [lb_av] 153 [lb_av] eCW1 ([facility]) Body height 64 [in_i] 64 [in_i] eCW1 ([facility]) Body mass index (BMI) [Ratio] 26.26 kg/m2 26.26 kg/m2 eCW1 ([facility]) Body weight 153 [lb_av] 153 [lb_av] eCW1 ([facility]) Body height 64 [in_i] 64 [in_i] eCW1 ([facility]) Body mass index (BMI) [Ratio] 26.26 kg/m2 26.26 kg/m2 eCW1 ([facility]) Body weight 153 [lb_av] 153 [lb_av] eCW1 ([facility]) Body height 64 [in_i] 64 [in_i] eCW1 ([facility]) Body mass index (BMI) [Ratio] 26.26 kg/m2 26.26 kg/m2 W1 ([facility]) Body temperature 99 [degF] 99 [degF] eCW1 ([facility]) [place] body weight 115 [lb_av] 115 [lb_av] MEDEN T ([facility]) Systolic blood pressure 140 mm[Hg] 140 mm[Hg] M EDENT ([facility]) Diastolic blood pressure 84 mm[Hg] 84 mm[Hg] [facility] ([facility]) Body height 63.7 [in_i] 63.7 [in_i] MED[facility] ([facility]) 5'3.70" Body mass index (BMI) [Ratio] 26.2 kg/m2 26.2 k g/m2 [facility] ([facility]) Heart rate 77 /min 77 /min [facility] ([facility]) Oxygen saturation in Arterial blood by Pulse oximetry 95 % 95 % [facility] ([facility]) Body weight 151.25 [lb_av] 151.25 [lb_av] MEDEN T ([facility]) Respiratory rate 18 /min 18 /min MED[facility] ( [facility]) Body temperature 99.3 [degF] 99.3 [degF] [facility] ([facility]) Systolic blood pressure 126 mm[Hg] 126 mm[Hg] M EDENT ([facility]) Diastolic blood pressure 78 mm[Hg] 78 mm[Hg] [facility] ([facility]) Respiratory rate 18 /min 18 /min [facility] ( [facility]) Body height 63.7 [in_i] 63.7 [in_i] MED[facility] ([facility]) 5'3.70" Body weight 156.50 [lb_av] 156.50 [lb_av] MEDEN T ([facility]) Body mass index (BMI) [Ratio] 27.1 kg/m2 27.1 k g/m2 [facility] ([facility]) Heart rate 77 /min 77 /min [facility] ([facility]) Body temperature 98.0 [degF] 98.0 [degF] [facility] ([facility]) Oxygen saturation in Arterial blood by Pulse oximetry 97 % 97 % [facility] ([facility]) [place] body weight 115 [lb_av] 115 [lb_av] MEDEN T ([facility]) Body height 64 [in_i] 64 [in_i] MEDENT ([facility]) 5'4" Body weight 152.00 [lb_av] 152.00 [lb_av] MEDEN T ([facility]) Body mass index (BMI) [Ratio] 26.1 kg/m2 26.1 k g/m2 MEDENT ([facility]) Oxygen saturation in Arterial blood by Pulse oximetry 90 % 90 % [facility] ([facility]) Heart rate 62 /min 62 /min MED[facility] ([facility]) Body temperature 97.0 [degF] 97.0 [degF] [facility] ([facility]) Systolic blood pressure 120 mm[Hg] 120 mm[Hg] M EDENT ([facility]) Diastolic blood pressure 68 mm[Hg] 68 mm[Hg] MEDENT ([facility]) Heart rate 87 /min 87 /min [facility] Body temperature 98.8 [degF] 98.8 [degF] [facility] ([facility]) Systolic blood pressure 126 mm[Hg] 126 mm[Hg] M [facility] ([facility]) Body height 63.7 [in_i] 63.7 [in_i] [facility] ([facility]) 5'3.70" Respiratory rate 19 /min 19 /min [facility]) Oxygen saturation in Arterial blood by Pulse oximetry 94 % 94 % [facility] ([facility]) [place] body weight 115 [lb_av] 115 [lb_av] MEDEN T ([facility]) Diastolic blood pressure 72 mm[Hg] 72 mm[Hg] [facility] Body weight 151.38 [lb_av] 151.38 [lb_av] MEDEN T ([facility]) Body mass index (BMI) [Ratio] 26.2 kg/m2 26.2 k g/m2 [facility] ([facility]) Systolic blood pressure 128 mm[Hg] 128 mm[Hg] [facility] Diastolic blood pressure 80 mm[Hg] 80 mm[Hg] [facility] Heart rate 72 /min 72 /min [facility] Body height 162.6 cm 162.6 cm [facility] Body weight 67.132 kg 67.132 kg [facility] Body mass index (BMI) [Ratio] 25.40 kg/m2 25.40 kg/m2 [facility] Oxygen saturation in Arterial blood by Pulse oximetry 97 % 97 % [facility] Heart rate 116 /min 116 /min [facility] ([facility]) Respiratory rate 20 /min 20 /min MED[facility] ( [facility]) Systolic blood pressure 138 mm[Hg] 138 mm[Hg] M EDENT ([facility]) Diastolic blood pressure 82 mm[Hg] 82 mm[Hg] [facility] ([facility]) Body height 63.7 [in_i] 63.7 [in_i] MED[facility] ([facility]) 5'3.70" Body weight 153.00 [lb_av] 153.00 [lb_av] MEDEN T ([facility]) Body mass index (BMI) [Ratio] 26.5 kg/m2 26.5 k g/m2 [facility] ([facility]) Body temperature 98.4 [degF] 98.4 [degF] [facility] ([facility]) Oxygen saturation in Arterial blood by Pulse oximetry 94 % 94 % [facility] ([facility]) 95 recheck [place] body weight 115 [lb_av] 115 [lb_av] MEDEN T ([facility]) Body surface area Derived from formula 1.73 m2 1.73 m2 [facility] ([facility] [facility] [employer]) Systolic blood pressure 142 mm[Hg] 142 mm[Hg] M EDENT ([facility] [employer]) Body weight 149.00 [lb_av] 149.00 [lb_av] MEDEN T ([facility]) Diastolic blood pressure 72 mm[Hg] 72 mm[Hg] [facility] ([facility]) Body height 64.25 [in_i] 64.25 [in_i] [facility] ([facility] [employer] [employer]) 5'4.25" Body mass index (BMI) [Ratio] 25.4 kg/m2 25.4 k g/m2 [facility] ([facility] [employer]) Systolic blood pressure 152 mm[Hg] 152 mm[Hg] M EDENT ([facility]) Diastolic blood pressure 86 mm[Hg] 86 mm[Hg] MED[facility] ([facility], [facility]) Heart rate 66 /min 66 /min [facility] ([facility], [facility]) Respiratory rate 18 /min 18 /min [facility] ( [facility], [facility]) Oxygen saturation in Arterial blood by Pulse oximetry 98 % 98 % [facility] ([facility], [facility]) Body temperature 98.2 [degF] 98.2 [degF] [facility] ([facility], [facility]) Body weight 152.00 [lb_av] 152.00 [lb_av] MEDEN T ([facility], [facility]) Body height 65 [in_i] 65 [in_i] [facility] ([facility]) 5'5" Body mass index (BMI) [Ratio] 25.3 kg/m2 25.3 k g/m2 [facility] ([facility], [facility]) Body mass index (BMI) [Ratio] 26.4 kg/m2 26.4 k g/m2 [facility] ([facility]) Heart rate 87 /min 87 /min [facility] ([facility]) Respiratory rate 20 /min 20 /min [facility] ( [facility]) Body temperature 97.9 [degF] 97.9 [degF] [facility] ([facility]) Oxygen saturation in Arterial blood by Pulse oximetry 95 % 95 % [facility]) [place] body weight 115 [lb_av] 115 [lb_av] MEDEN T ([facility]) Systolic blood pressure 126 mm[Hg] 126 mm[Hg] EDENT ([facility]) Diastolic blood pressure 76 mm[Hg] 76 mm[Hg] [facility] ([facility]) Body height 63.7 [in_i] 63.7 [in_i] [facility] ([facility]) 5'3.70" Body weight 152.25 [lb_av] 152.25 [lb_av] MEDEN T ([facility]) Respiratory rate 16 /min 16 /min [facility] ( [facility]) Body temperature 96.6 [degF] 96.6 [degF] [facility] ([facility]) Oxygen saturation in Arterial blood by Pulse oximetry 97 % 97 % [facility] ([facility]) [place] body weight 115 [lb_av] 115 [lb_av] MEDEN T ([facility]) Systolic blood pressure 128 mm[Hg] 128 mm[Hg] M EDENT ([facility]) Diastolic blood pressure 80 mm[Hg] 80 mm[Hg] [facility] ([facility]) Body height 63.7 [in_i] 63.7 [in_i] [facility] ([facility]) 5'3.70" Body weight 150.12 [lb_av] 150.12 [lb_av] MEDEN T ([facility]) Body mass index (BMI) [Ratio] 26.0 kg/m2 26.0 k g/m2 [facility] ([facility]) Heart rate 64 /min 64 /min [facility] ([facility]) Body height 64 [in_i] 64 [in_i] [facility] ([facility]) 5'4" Body surface area Derived from formula 1.74 m2 1.74 m2 [facility] ([facility]) Body weight 151.00 [lb_av] 151.00 [lb_av] MEDEN T ([facility]) Body mass index (BMI) [Ratio] 25.9 kg/m2 25.9 k g/m2 [facility] ([facility]) [place] body weight 120 [lb_av] 120 [lb_av] MEDEN T ([facility]) Body weight 68.494 kg 68.494 kg [facility] ([facility]) Systolic blood pressure 160 mm[Hg] 160 mm[Hg] [facility] Body height 64 [in_i] 64 [in_i] [facility] 5'4" Body weight 151.00 [lb_av] 151.00 [lb_av] MEDEN T ([facility]) Body mass index (BMI) [Ratio] 25.9 kg/m2 25.9 k g/m2 [facility] ([facility]) Body weight 68.494 kg 68.494 kg [facility] ([facility]) Diastolic blood pressure 90 mm[Hg] 90 mm[Hg] ALESSIO ([facility], ) Heart rate 74 /min 74 /min ALESSIO ([facility], ) Oxygen saturation in Arterial blood by Pulse oximetry 96 % 96 % ALESSIO ([facility], ) Patient Treatment Plan of Care Planned Activity Planned Date Details Description Data Source (s) 24 HR metoprolol succinate 25 MG Extended Release Oral Tablet 02/26/2021 12:00:00 AM EDT [facility] Warfarin Sodium 2 MG Oral Tablet 02/26/2021 12:00:00 AM EDT [facility] Warfarin Sodium 2.5 MG Oral Tablet 02/13/2021 12:00:00 AM EDT [facility] Prednisone 20 MG Oral Tablet 01/16/2021 12:00:00 AM EDT [facility] 24 HR metoprolol succinate 25 MG Extended Release Oral Tablet 11/04/2020 12:00:00 AM EDT [facility] Amoxicillin 875 MG / Clavulanate 125 MG Oral Tablet 10/24/19 12:00:00 AM EDT eCW1 ([facility]) Amoxicillin 875 MG / Clavulanate 125 MG Oral Tablet 10/24/19 12:00:00 AM EDT eCW1 ([facility]) Prednisone 20 MG Oral Tablet 10/18/2020 12:00:00 AM EDT eCW1 ([facility]) Prednisone 20 MG Oral Tablet 10/18/2020 12:00:00 AM EDT eCW1 ([facility]) Prednisone 20 MG Oral Tablet 10/18/2020 12:00:00 AM EDT eCW1 ([facility]) Prednisone 20 MG Oral Tablet 10/18/2020 12:00:00 AM EDT eCW1 ([facility]) Prednisone 20 MG Oral Tablet 10/18/2020 12:00:00 AM EDT eCW1 ([facility]) Prednisone 20 MG Oral Tablet 10/18/2020 12:00:00 AM EDT eCW1 ([facility]) atorvastatin 40 MG Oral Tablet 10/01/2020 12:00:00 AM EST [facility] Warfarin Sodium 2.5 MG Oral Tablet 10/01/2020 12:00:00 AM EST [facility] 24 HR metoprolol succinate 25 MG Extended Release Oral Tablet 07/17/2020 12:00:00 AM EST [facility] 24 HR metoprolol succinate 25 MG Extended Release Oral Tablet 07/17/2020 12:00:00 AM EST [facility] Warfarin Sodium 2.5 MG Oral Tablet 07/17/2020 12:00:00 AM EST [facility] atorvastatin 40 MG Oral Tablet 07/17/2020 12:00:00 AM EST [facility] 24 HR metoprolol succinate 25 MG Extended Release Oral Tablet 05/01/2020 12:00:00 AM EDT [facility] Sucralfate 1000 MG Oral Tablet 02/16/2020 12:00:00 AM EDT [facility] Trazodone Hydrochloride 50 MG Oral Tablet 10/04/2019 12:00:00 AM ES T [facility] Simethicone 80 MG Chewable Tablet 08/14/2019 12:00:00 AM EST [facility] LINZESS 72 MCG CAPS 08/11/2019 12:00:00 AM EST [facility] Estrogens, Conjugated (MCFP) 0.625 MG/ML Vaginal Cream [Premarin] 04/22/2018 12:00:00 AM EDT [facility] 1 ML denosumab 60 MG/ML Prefilled Syringe [facility] Warfarin Sodium 2.5 MG Oral Tablet [facility]
[2021-06-08] MEDS ORDERED: TRAM50TA2 PO (16:25)
[2021-06-08] MEDS ORDERED: HOME MED LIST COMPLETE! XX SCH (16:30)
[2021-06-08 16:40] VITALS: BP 160/75
[2021-06-08] MEDS ORDERED: NS 1,000 ML IV ONE (16:40)
[2021-06-08] MEDS ORDERED: NON-FORMULARY 1 EA EA PO PRN (16:40)
[2021-06-08] MEDS ORDERED: traMADol 50 MG TAB PO PRN (16:40)
[2021-06-08] MEDS ORDERED: POLYVINYL ALCOHOL OPHTH SOLN 15 ML(LIQUITEARS) OU PRN (16:40)
[2021-06-08] MEDS ORDERED: CALCIUM GLUCONATE 1,000 MG in D5W MINI-BAG PLUS 100 ML IV ONE (17:00)
[2021-06-08] MEDS ORDERED: WARFARIN SOD 2.5MG TAB PO SCH (17:00)
[2021-06-08] MEDS ORDERED: LINZESS PO PRN (17:15)
[2021-06-08] MEDS: SUCRALFATE 1 GM TAB PO SCH ×2 (17:21→20:57)
[2021-06-08] MEDS: propylthiouraciL 50 MG TAB PO SCH (17:23)
[2021-06-08] MEDS: ACETAMINOPHEN 500 MG TAB PO PRN (17:23)
[2021-06-08] MEDS ORDERED: PERCOCET 5MG/325MG TAB PO PRN (17:25)
[2021-06-08] MEDS ORDERED: SOD POLYSTYRENE SULFONATE SUSP 15 GM/60 ML UD PO ONE (18:00)
[2021-06-08] MEDS: NS 1,000 ML IV SCH (18:20)
[2021-06-08] MEDS ORDERED: MONTELUKAST 10 MG TAB PO ONE (18:40)
[2021-06-08] MEDS ORDERED: guaiFENesin DM LIQ 10ML UD PO ONE (18:40)
[2021-06-08] MEDS ORDERED: CETIRIZINE (ZyrTEC) 10 MG TAB PO ONE (18:40)
--- NOTE | 2021-06-08 18:57 | HPEPDOC ---
[facility] Medical History & Physical Date of Admission Jun 08, 2021 Date of Service: Jun 08, 2021 History and Physical CHIEF COMPLAINT: " I thought I had blood clots in my legs. My right leg hurts since . My left leg feels tight. My INR was 1.1 last week." HISTORY OF PRESENT ILLNESS: 75-year-old female with history of protein C and protein S deficiency, DVT x4, PE in 1975 and in 1979, on chronic warfarin with subtherapeutic INR 1.1 last week presents to emergency room with several day history of right leg pain greater than left leg pain concerning for blood clot which prompted her to come to the ER for evaluation. She doubled up on her warfarin dose with repeat INR of 2.8 as outpatient. Patient denied any shortness of breath but has a cough productive of white sputum without fever chills pleuritic chest pain nausea vomiting headache diarrhea she complains also of abdominal pain which starts from her epigastric region going up towards the substernal area like a "knot." She describes the pain as sharp and achy lasting only for a few minutes without diarrhea bright red blood per rectum melena black tarry stools coffee-ground emesis hematemesis or vomiting. She has had decrease in appetite without weight loss. She had had prior episodes in the past and has chronic abdominal distention and feels "bloated all the time," which my gas roller operator Dr. Henny Quiñonez in [place] has known about for many years. Patient has history of irritable bowel syndrome and has Linzess as needed for diarrhea. She decided to leave Dr. Henny Quiñonez's practice in [place] and go to Dr. Murry as a new referral. In the emergency room, patient was afebrile with no white count CT abdomen shows mild hydronephrosis with normal creatinine lipase was elevated but normal pancreas without inflammation. Hospitalist was asked to admit the patient for chronic abdominal pain and evaluation of bilateral lower extremity pain negative DVT on venous ultrasound. Her INR was therapeutic at 2.1. PAST MEDICAL HISTORY: Migraines irritable bowel syndrome white matter degeneration with aging hypercholesterolemia hypertension DVT x4 anxiety depression PE in 1975 in 1979 protein C deficiency protein S deficiency Covid pneumonia September 2020 bronchiectasis epistaxis left nares 11/2019 upper GI bleed esophagitis H. pylori rectal fissure chronic kidney disease stage IIIa ovarian cyst hyper thyroidism pinched nerve arms legs slipped disc in the neck and lower back polio chronic low back pain PAST SURGICAL HISTORY: Plastic prosthesis from my head or hernia in the 1969 hysterectomy lumpectomy x2 1 in each breast bowel resection x2 lysis of adhesions x4 hiatal hernia repair umbilical hernia repair colonoscopy with polypectomy SOCIAL HISTORY: Full code Former smoker FAMILY HISTORY: Mother CVA Father CAD LA 2 brothers CAD ALLERGIES: Please see below. REVIEW OF SYSTEMS: 10 point review of system negative curative aside from positive findings in HPI HOME MEDICATIONS: Please see below. PHYSICAL EXAMINATION: VITAL SIGNS: See below GENERAL APPEARANCE: No cyanosis pallor or icterus or jaundice no distress Speaks in full sentences HEENT: No JVD thyromegaly cervical lymphadenopathy moist mucous membranes CARDIOVASCULAR: S1-S2 regular rate rhythm LUNGS: Clear to auscultation no wheezing rales or rhonchi ABDOMEN: Distended tympanic positive bowel sounds x4 quadrants EXTREMITIES: No cyanosis or clubbing LABORATORY DATA: See below. IMAGING: See below MICROBIOLOGY: Please see below. ASSESSMENT:75-year-old female with history of protein C and protein S deficiency, DVT x4, PE in 1975 and in 1979, on chronic warfarin with subtherapeutic INR 1.1 last week presents to emergency room with several day history of right leg pain greater than left leg pain concerning for blood clot which prompted her to come to the ER for evaluation. She doubled up on her warfarin dose with repeat INR of 2.8 as outpatient. Patient denied any shortness of breath but has a cough productive of white sputum without fever chills pleuritic chest pain nausea vomiting headache diarrhea she complains also of abdominal pain which starts from her epigastric region going up towards the substernal area like a "knot." She describes the pain as sharp and achy lasting only for a few minutes without diarrhea bright red blood per rectum melena black tarry stools coffee-ground emesis hematemesis or vomiting. She has had decrease in appetite without weight loss. She had had prior episodes in the past and has chronic abdominal distention and feels "bloated all the time," which my gas roller operator Dr. Henny Quiñonez in [place] has known about for many years. Patient has history of irritable bowel syndrome and has Linzess as needed for diarrhea. She decided to leave Dr. Henny Quiñonez's practice in [place] and go to Dr. Murry as a new referral. In the emergency room, patient was afebrile with no white count CT abdomen shows mild hydronephrosis with normal creatinine lipase was elevated but normal pancreas without inflammation. Hospitalist was asked to admit the patient for chronic abdominal pain and evaluation of bilateral lower extremity pain negative DVT on venous ultrasound. Her INR was therapeutic at 2.1. Bilateral lower extremity pain -In the setting of chronic protein C&S deficiency and history of for DVTs in the past. Negative ultrasound for DVT today. -Patient had a prior history of smoking. Will need to rule out peripheral arterial disease. Therefore, we will check arterial Dopplers bilateral lower extremities Chronic abdominal pain/history of irritable bowel syndrome/history of hernia repair with elevated lipase level but normal pancreas on CT -Full work-up by her gas roller operator Dr. Henny Quiñonez obtain records from Dr Quiñonez's office GI consult in the morning. -Check MRA abdominal vasculature , check lactic acid of persistent abdominal pain to rule out chronic mesenteric ischemia -Check upper GI series with small bowel follow-through Mild hydronephrosis with no kidney stone on CT abdomen and normal creatinine -Repeat creatinine in the morning if worsening creatinine or decreased urine output may need urology consultation for cystoscopy and stent placement. Hypertension, uncontrolled -Resume home meds As needed pain medications. Protein C/protein S deficiency with history of PE and DVT x4 -Continue present dose of warfarin check daily INR -Target INR of 2-3 Hyperthyroidism -On PTU History of irritable bowel syndrome -As needed Linzess for diarrhea Chronic kidney disease stage IIIa -Monitor I's and O's Daily weights and metabolic panel -Trial of IV fluids Depression -Chronic Chronic back pain -As needed pain meds Vital Signs Vital Signs Date Time Temp Pulse Resp B/P (MAP) Pulse Ox O2 Delivery O2 Flow Rate FiO2 06/08/21 16:40 99.1 71 20 160/75 (103) 96 Room Air Laboratory Data Labs 24H Laboratory Tests 2 06/08/21 12:39: Immature Granulocyte % (Auto) 0.3, Neutrophils (%) (Auto) 66.0, Lymphocytes (%) (Auto) 19.5L, Monocytes (%) (Auto) 9.6H, Eosinophils (%) (Auto) 3.6H, Basophils (%) (Auto) 1.0, Neutrophils # (Auto) 4.5, Lymphocytes # (Auto) 1.3L, Monocytes # (Auto) 0.7, Eosinophils # (Auto) 0.3, Basophils # (Auto) 0.1, Nucleated Red Blood Cells % (auto) 0.0, Anion Gap 3L, Glomerular Filtration Rate > 60.0, Calcium Level 8.6L, Total Bilirubin 1.0, Direct Bilirubin < 0.1, Aspartate Amino Transf (AST/SGOT) 37, Alanine Aminotransferase (ALT/SGPT) 30, Alkaline Phosphatase 55, Total Creatine Kinase 134, Creatine Kinase MB < 1.0, Creatine Kinase MB Relative Index 0.75, Troponin I < 0.02, Total Protein 6.9, Albumin 3.3, Albumin/Globulin Ratio 0.9L, Lipase 996H, Thyroid Stimulating Hormone (TSH) 2.290, Free Thyroxine 0.89 06/08/21 12:51: Prothrombin Time 24.7H, Prothromb Time International Ratio 2.18, Activated Partial Thromboplast Time 39.2H, D-Dimer, Quantitative 370.92 CBC/BMP Laboratory Tests 06/08/21 12:39 Microbiology Microbiology 06/08/21 Respiratory Virus Panel (PCR) ([facility]) - Final, Complete Home Medications Scheduled Aspirin (Aspirin EC) 81 Mg Tablet.dr, 81 MG PO DAILY Atorvastatin Calcium (Atorvastatin Calcium) 40 Mg Tablet, 40 MG PO QPM Bupropion HCl (Bupropion HCl Sr) 100 Mg Tab.sr.12h, 100 MG PO BID HASN'T STARTED Cholecalciferol (Vitamin D3) (Vitamin D3) 1,000 Unit Tablet, 5,000 UNITS PO QHS Clonazepam (Clonazepam) 1 Mg Tablet, 1 MG PO DAILY Fluticasone Propionate (Fluticasone Propionate) 16 Gm [place].susp, 2 SPRAYS PO BID Metoprolol Succinate (Metoprolol Succinate) 25 Mg Tab.er.24h, 25 MG PO QPM Pantoprazole Sodium (Pantoprazole Sodium) 40 Mg Tablet.dr, 40 MG PO BID Propylthiouracil (Propylthiouracil) 50 Mg Tablet, 50 MG PO DAILY Travoprost (Travatan Z) 0.004% 2.5ML Drops, 1 DROP OU QHS Trazodone HCl (Trazodone HCl) 50 Mg Tablet, 50 MG PO QHS Warfarin Sodium (Warfarin Sodium) 2.5 Mg Tablet, 2.5 MG PO QHS Scheduled PRN Acetaminophen (Acetaminophen) 500 Mg Tablet, 1,000 MG PO Q4H PRN for PAIN Linaclotide (Linzess) 145 Mcg Capsule, 145 MCG PO DAILY PRN for DIARRHEA Polyvinyl Alcohol (Artificial Tears) 15 Ml Drops, 1 DROP OU QID PRN for DRY EYES Tramadol HCl (Tramadol HCl) 50 Mg Tablet, 50 MG PO BID PRN for PAIN LEVEL 5-7 Allergies Coded Allergies: Contrast Media (Verified Allergy, Severe, "convulse", 11/22/19) Corticosteroids (Glucocorticoids) (Verified Allergy, Mild, ankle swelling, 04/02/20) Quinolones (Verified Allergy, Mild, rash, swelling, 04/02/20) Sulfa (Sulfonamide Antibiotics) (Verified Allergy, Mild, rash, 04/02/20) ciprofloxacin (Verified Allergy, Mild, rash, 04/02/20) codeine (Verified Allergy, Mild, rash, 04/02/20) metoclopramide (Verified Allergy, Mild, rash, 04/02/20) morphine (Verified Allergy, Mild, rash, 04/02/20) prochlorperazine (Verified Allergy, Mild, rash, 04/02/20) albuterol (Verified Allergy, Unknown, 03/29/20) iodine (Verified Allergy, Unknown, 03/29/20) sertraline (Verified Allergy, Unknown, 03/29/20) tetracycline (Verified Allergy, Unknown, 03/29/20) A-FIB/CHADSVASC A-FIB History Current/History of A-Fib/PAF?: No Current PO Anticoag Therapy: No Age/Risk Factor Scoring CHADSVASC: CHADSVASC Response (Comments) Value Age Risk Factor Age >/= 75 years old 2 Gender Risk Factor Female 1 Hx of CHF No 0 Hx of HTN Yes 1 Hx of Stroke/TIA/or VTE No 0 Hx of Diabetes No 0 Hx of Vascular Disease No 0 Total 4 Treatment Treatment ordered: NONE TERA QUEZADA MD Jun 08, 2021 18:40
--- NOTE | 2021-06-08 20:21 | ECGEPIP ---
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
[2021-06-08] MEDS: PANTOPRAZOLE 40MG TAB (PROTONIX) PO SCH (20:57)
[2021-06-08] MEDS: buPROPion (WELLBUTRIN SR) 100 MG SR TAB PO SCH (20:57)
[2021-06-08 20:58] VITALS: BP 150/74
[2021-06-08] MEDS: FLUTICASONE PROP 0.05% NASAL SPRAY 16 GM (FLONASE) NARES SCH (20:58)
[2021-06-08] MEDS ORDERED: METOPROLOL SUCC *XL* 25MG TAB (TopROL *XL*) PO SCH (21:00)
[2021-06-08] MEDS ORDERED: traZODone 50 MG TAB PO SCH (21:00)
[2021-06-08] MEDS ORDERED: LATANOPROST 0.005% OPHTH SOLN 2.5 ML OU SCH (21:00)
[2021-06-08] MEDS ORDERED: VITAMIN D 1,000 INTERNATIONAL UNITS TABLET PO SCH (21:00)
[2021-06-08] MEDS ORDERED: ATORVASTATIN 20 MG TAB PO SCH (21:00)
[2021-06-08 22:00] VITALS: BP 150/74
[2021-06-08] MEDS ORDERED: guaiFENesin DM LIQ 10ML UD PO PRN (22:40)
[2021-06-09] MEDS: NS 1,000 ML IV SCH (04:00)
[2021-06-09 06:00] VITALS: BP 131/54
[2021-06-09 06:05] LABS: HEMOGLOBIN 10.8 g/dl (12.0-15.5); MEAN CORPUSCULAR HGB CONC 31.8 g/dl (32.0-36.5); MEAN CORPUSCULAR VOLUME 91.4 fl (80.0-96.0); PLATELET COUNT, AUTOMATED 225 10^3/uL (150-450); RED BLOOD COUNT 3.72 10^6/uL (4.00-5.40); WHITE BLOOD COUNT 5.2 10^3/uL (4.0-10.0)
[2021-06-09 06:15] LABS: INR 2.57; PROTHROMBIN TIME 27.9 SECONDS (12.7-14.5)
[2021-06-09 06:26] LABS: BLOOD UREA NITROGEN 8 MG/DL (7-18); CALCIUM LEVEL 8.2 MG/DL (8.8-10.2); CARBON DIOXIDE LEVEL 25 MEQ/L (21-32); CHLORIDE LEVEL 113 MEQ/L (98-107); CREATININE FOR GFR 0.81 MG/DL (0.55-1.30); GLOMERULAR FILTRATION RATE > 60.0 (>39); GLUCOSE, FASTING 90 MG/DL (70-100); POTASSIUM SERUM 4.2 MEQ/L (3.5-5.1); SODIUM LEVEL 143 MEQ/L (136-145)
[2021-06-09] MEDS: SUCRALFATE 1 GM TAB PO SCH ×2 (07:30→12:00)
[2021-06-09] MEDS ORDERED: ASPIRIN 81MG ENTERIC TABLET PO SCH (09:00)
[2021-06-09] MEDS ORDERED: clonazePAM 1 MG TAB PO SCH (09:00)
[2021-06-09] MEDS ORDERED: E-Z-HD 98% w/w 340GM SUSP BTL As Ordered ONE ×2 (09:13→11:30)
[2021-06-09] MEDS ORDERED: E-Z-PAQUE 96% w/w SUSP 176GM BTL As Ordered ONE ×2 (09:13→11:29)
[2021-06-09] MEDS ORDERED: E-Z-GAS II EFFERVESCENT PACKET (SODIUM BICARB./CITRIC ACID/SIMETHICONE) As Ordered ONE ×2 (09:13→11:30)
[2021-06-09 10:40] LABS: LIPASE 64 U/L (73-393)
--- NOTE | 2021-06-09 11:47 | REP ---
INDICATION: ABD PAIN R/O CHRONIC MESENTERIC ISCHEMIA. COMPARISON: None. TECHNIQUE: 3D [id number] MRA imaging is performed of the mesenteric arteries. MIP reconstruction images are performed. FINDINGS: The upper abdominal aorta is normal in caliber. The celiac artery and superior mesenteric artery are patent with no stenosis. There is no evidence of renal artery stenosis. The visualized liver and spleen are unremarkable. The adrenals and pancreas are unremarkable. There is no evidence of pancreatic duct or biliary duct dilatation. Parapelvic cysts are noted in each kidney. No adenopathy or free fluid is seen in the abdomen. IMPRESSION: No evidence of stenosis of the celiac or superior mesenteric arteries. <Electronically signed by Jonathan Duque > 06/09/21 1402
[2021-06-09] MEDS ORDERED: OXYC1TAB23 PO (12:11)
[2021-06-09] MEDS ORDERED: SUCR1TA PO (12:19)
--- NOTE | 2021-06-09 12:24 | DS.PDOC ---
Discharge Summary General Date of Admission Jun 08, 2021 at 15:30 Date of Discharge 06/09/21 Discharge Summary discharge summary dictated job #[id number] Vital Signs/I&Os Vital Signs Date Time Temp Pulse Resp B/P (MAP) Pulse Ox O2 Delivery O2 Flow Rate FiO2 06/09/21 06:00 97.4 75 17 131/54 (79) 97 Room Air I&O- Last 24 Hours up to 6 AM 06/09/21 05:59 Intake Total 1840 ml Output Total 0 ml Balance 1840 ml Laboratory Data Labs 24H Laboratory Tests 2 06/08/21 12:39: Immature Granulocyte % (Auto) 0.3, Neutrophils (%) (Auto) 66.0, Lymphocytes (%) (Auto) 19.5L, Monocytes (%) (Auto) 9.6H, Eosinophils (%) (Auto) 3.6H, Basophils (%) (Auto) 1.0, Neutrophils # (Auto) 4.5, Lymphocytes # (Auto) 1.3L, Monocytes # (Auto) 0.7, Eosinophils # (Auto) 0.3, Basophils # (Auto) 0.1, Nucleated Red Blood Cells % (auto) 0.0, Anion Gap 3L, Glomerular Filtration Rate > 60.0, Calcium Level 8.6L, Total Bilirubin 1.0, Direct Bilirubin < 0.1, Aspartate Amino Transf (AST/SGOT) 37, Alanine Aminotransferase (ALT/SGPT) 30, Alkaline Phosphatase 55, Total Creatine Kinase 134, Creatine Kinase MB < 1.0, Creatine Kinase MB Relative Index 0.75, Troponin I < 0.02, Total Protein 6.9, Albumin 3.3, Albumin/Globulin Ratio 0.9L, Lipase 996H, Thyroid Stimulating Hormone (TSH) 2.290, Free Thyroxine 0.89 06/08/21 12:51: Prothrombin Time 24.7H, Prothromb Time International Ratio 2.18, Activated Partial Thromboplast Time 39.2H, D-Dimer, Quantitative 370.92 06/09/21 05:22: Nucleated Red Blood Cells % (auto) 0.0, Anion Gap 5L, Glomerular Filtration Rate > 60.0, Calcium Level 8.2L, Lipase 64L 06/09/21 05:23: Prothrombin Time 27.9H, Prothromb Time International Ratio 2.57 CBC/BMP Laboratory Tests 06/08/21 12:39 06/08/21 22:37 06/09/21 05:22 Microbiology Microbiology 06/08/21 Respiratory Virus Panel (PCR) ([facility]) - Final, Complete Discharge Medications Scheduled Aspirin (Aspirin EC) 81 Mg Tablet.dr, 81 MG PO DAILY, (Reported) Atorvastatin Calcium (Atorvastatin Calcium) 40 Mg Tablet, 40 MG PO QPM, (Reported) Bupropion HCl (Bupropion HCl Sr) 100 Mg Tab.sr.12h, 100 MG PO BID, (Reported) HASN'T STARTED Cholecalciferol (Vitamin D3) (Vitamin D3) 1,000 Unit Tablet, 5,000 UNITS PO QHS, (Reported) Clonazepam (Clonazepam) 1 Mg Tablet, 1 MG PO DAILY, (Reported) Fluticasone Propionate (Fluticasone Propionate) 16 Gm [place].susp, 2 SPRAYS PO BID, (Reported) Metoprolol Succinate (Metoprolol Succinate) 25 Mg Tab.er.24h, 25 MG PO QPM, (Reported) Pantoprazole Sodium (Pantoprazole Sodium) 40 Mg Tablet.dr, 40 MG PO BID, (Reported) Propylthiouracil (Propylthiouracil) 50 Mg Tablet, 50 MG PO DAILY, (Reported) Sucralfate (Sucralfate) 1 Gm Tablet, 1 GM PO ACHS Travoprost (Travatan Z) 0.004% 2.5ML Drops, 1 DROP OU QHS, (Reported) Trazodone HCl (Trazodone HCl) 50 Mg Tablet, 50 MG PO QHS, (Reported) Warfarin Sodium (Warfarin Sodium) 2.5 Mg Tablet, 2.5 MG PO QHS, (Reported) Scheduled PRN Acetaminophen (Acetaminophen) 500 Mg Tablet, 1,000 MG PO Q4H PRN for PAIN, (Reported) Linaclotide (Linzess) 145 Mcg Capsule, 145 MCG PO DAILY PRN for DIARRHEA, (Reported) Oxycodone HCl/Acetaminophen (Oxycodone-Acetaminophen 5-325) 1 Each Tablet, 1 TAB PO TIDP PRN for pain Polyvinyl Alcohol (Artificial Tears) 15 Ml Drops, 1 DROP OU QID PRN for DRY EYES, (Reported) Tramadol HCl (Tramadol HCl) 50 Mg Tablet, 50 MG PO BID PRN for PAIN LEVEL 5-7, (Reported) Allergies Coded Allergies: Contrast Media (Verified Allergy, Severe, "convulse", 11/22/19) Corticosteroids (Glucocorticoids) (Verified Allergy, Mild, ankle swelling, 04/02/20) Quinolones (Verified Allergy, Mild, rash, swelling, 04/02/20) Sulfa (Sulfonamide Antibiotics) (Verified Allergy, Mild, rash, 04/02/20) ciprofloxacin (Verified Allergy, Mild, rash, 04/02/20) codeine (Verified Allergy, Mild, rash, 04/02/20) metoclopramide (Verified Allergy, Mild, rash, 04/02/20) morphine (Verified Allergy, Mild, rash, 04/02/20) prochlorperazine (Verified Allergy, Mild, rash, 04/02/20) albuterol (Verified Allergy, Unknown, 03/29/20) iodine (Verified Allergy, Unknown, 03/29/20) sertraline (Verified Allergy, Unknown, 03/29/20) tetracycline (Verified Allergy, Unknown, 03/29/20) TERA QUEZADA MD Jun 09, 2021 12:23
[2021-06-09] MEDS: PANTOPRAZOLE 40MG TAB (PROTONIX) PO SCH (14:27)
[2021-06-09] MEDS: buPROPion (WELLBUTRIN SR) 100 MG SR TAB PO SCH (14:27)
[2021-06-09] MEDS: propylthiouraciL 50 MG TAB PO SCH (14:27)
[2021-06-09] MEDS: FLUTICASONE PROP 0.05% NASAL SPRAY 16 GM (FLONASE) NARES SCH (14:28)
[2021-06-09] MEDS: ACETAMINOPHEN 500 MG TAB PO PRN (14:36)
[2021-06-09 14:41] VITALS: BP 128/78
--- NOTE | 2021-06-09 14:54 | REP ---
INDICATION: BL LE PAIN W AMBULATION COMPARISON: None. TECHNIQUE: Real time duque scale and Duplex Doppler evaluation of the bilateral lower extremity arterial vasculature using linear high frequency transducer. FINDINGS: Duque scale and duplex doppler images demonstrate mild atheromatous plaquing with areas of mild narrowing but no focal stenosis identified. There is no occlusion. Doppler interrogation demonstrates biphasic arterial wave forms and velocities bilaterally. Peak systolic velocities (cm/sec) Common femoral artery: Right 159.2; Left 173.5 Profunda femoris: Right 86.1; Left 119.9 SFA (proximal): Right 111.8; Left 119.3 SFA (mid): Right 82.9; Left 91.1 SFA (distal): Right 75.2; Left 81.0 Popliteal artery: Right 68.8; Left 81.7 YOANDY (prox.): Right 92.5; Left 72.2 Tibioperoneal trunk: Right 62.3; Left 52.5 MAINTENANCE ANALYST (prox.): Right 72.6; Left 64.9 MAINTENANCE ANALYST (distal): Right 64.3; Left 67.6 YOANDY (distal): Right 69.9; Left 112.1 IMPRESSION: Atheromatous changes with areas of narrowing but no focal occlusion or stenosis. <Electronically signed by Jonathan Duque > 06/09/21 [id number]
--- NOTE | 2021-06-09 15:07 | DSES ---
DISCHARGE SUMMARY DATE OF ADMISSION: 06/08/2021 DATE OF DISCHARGE: 06/09/2021 PRIMARY DISCHARGE DIAGNOSES: 1. Chronic abdominal pain, mesenteric ischemia ruled out by MRI. 2. Leg pain, deep venous thrombosis negative. 3. History of pulmonary embolus, deep venous thrombosis x4 with protein C and S deficiency, on chronic Warfarin. 4. Chest pain, myocardial infarction ruled out. 5. History of irritable bowel syndrome. 6. History of hiatal hernia. 7. History of plastic prosthesis for hernia 1969 which was repaired. 8. History of migraines. 9. Hypertension. 10. Hypercholesterolemia. 11. History of Coronavirus pneumonia in September of 2020. 12. Chronic bronchiectasis. 13. Hyperkalemia. 14. Bronchitis or reactive airway disease. DISCHARGE MEDICATIONS: 1. Percocet 5/325 one tablet as needed three times a day for pain. 2. Acetaminophen 1 gm every 4 hours as needed. 3. Aspirin 81 mg daily. 4. Atorvastatin 40 daily. 5. Bupropion 100 twice daily. 6. Vitamin D 5000 at bedtime. 7. Clonazepam one daily. 8. Fluticasone two sprays twice daily. 9. Linzess 145 mcg as needed. 10. Protonix 40 twice daily. 11. Metoprolol 25 every pm. 12. Artificial Tears OU four times daily. 13. PTU 50 mg daily. 14. Tramadol 50 twice daily. 15. Travatan eyedrops one OU at bedtime. 16. Trazodone 50 at bedtime. 17. Warfarin 2.5 at bedtime. 18. Carafate 1 gm before meals, at bedtime. DISCHARGE INSTRUCTIONS: Primary care physician appointment within 5 days of discharge; Dr. Murry GI for chronic abdominal pain within 7 days of discharge. HOSPITAL COURSE: This is a 75-year-old female with history of irritable bowel syndrome, polypectomies, colonoscopies, EGD followed with Dr. Cristy Quiñonez in [place], has decided to switch her program writer to Dr. Murry. History of protein C and S deficiency with four DVT, PE 1975, had subtherapeutic INR last at 1.1. She doubled up on her Warfarin and it was 2.8. The patient complained of bilateral lower extremity pain and was concerned about DVT. She also had a knot in her umbilical area that goes up to her substernal area, worse when she leans forward, better when she lies back without fevers, chills, nausea or vomiting, hematemesis, coffee-ground emesis at home. The patient was seen in the emergency room and noted to have lipase level of 900, Hospitalist was asked to admit the patient for pancreatitis. CT abdomen and pelvis showed normal pancreas. She has mild hydronephrosis, parapelvic cysts, extrarenal pelvis, normal creatinine, anastomotic ___ found in the ileocolic, right upper quadrant with prior right hemicolectomy unchanged, no ventral, inguinal hernia or pelvic adenopathy or pelvic ascites noted. Pancreas/adrenal, stomach intact. No hepatosplenomegaly, focal hepatic or splenic lesion, no biliary dilatation, no ascites. Gallbladder without stones or mass. The patient was kept NPO, given IV fluids and kept on clear liquids, advanced to full liquid diet without nausea, vomiting or worsening abdominal pain. The patient was evaluated for DVT with ultrasound bilateral lower extremities which were negative for DVT. Chest x-ray was negative, no acute cardiopulmonary change but some bronchi with perihilar lesions, may reflect reactive airway disease or bronchitis. No pneumonia. The patient INR therapeutic at 2.18 and [address] chest was not performed to rule out PE since the patient was therapeutic and chest pain had resolved. Troponin was negative, less than 0.02 and EKG was unremarkable. The patient was kept on Protonix 40 twice daily, Carafate 1 gm before meals and at bedtime GI cocktail as needed with resolution of patient's abdominal discomfort. PHYSICAL EXAM: On discharge: VITAL SIGNS: Temperature 97.4, pulse 75, respiratory rate 17, blood pressure 131/54, 97% on room air. GENERAL: The patient is awake, alert and oriented to person, place and time. HEENT: Anicteric, no jaundice, no cyanosis. NECK: No JVD, thyromegaly or cervical lymphadenopathy. LUNGS: Clear to auscultation, no wheezing, rales or rhonchi. HEART: S1, S2, sinus rhythm. ABDOMEN: Soft, slightly tender in the epigastric area, no rebound or guarding. EXTREMITIES: No cyanosis or clubbing. Laboratory data, imaging studies, microbiology please see the chart. Time spent on discharge 30 minutes.
--- NOTE | 2021-06-09 15:23 | DS.PDOC ---
Discharge Summary General Date of Admission Jun 08, 2021 at 15:30 Date of Discharge 06/09/21 Discharge Summary Dalila Quezada MD [id number] [place] [address] Jun [id number] RE: ERIK ESTRADA 1945 Medical Leave of Absence To Whom It May Concern: Ms. Estrada was hospitalized from 06/08/21 to 06/09/21. She may return to work without activity restrictions on Wednesday06/16/21. If questions should arise, pls call my office at [phone]. Sincerely, Dalila Quezada MD [facility] Vital Signs/I&Os Vital Signs Date Time Temp Pulse Resp B/P (MAP) Pulse Ox O2 Delivery O2 Flow Rate FiO2 06/09/21 14:41 97.8 72 18 128/78 (95) 100 Room Air I&O- Last 24 Hours up to 6 AM 06/09/21 06:00 Intake Total 2440 ml Output Total 0 ml Balance 2440 ml Laboratory Data Labs 24H Laboratory Tests 2 06/09/21 05:22: Nucleated Red Blood Cells % (auto) 0.0, Anion Gap 5L, Glomerular Filtration Rate > 60.0, Calcium Level 8.2L, Lipase 64L 06/09/21 05:23: Prothrombin Time 27.9H, Prothromb Time International Ratio 2.57 CBC/BMP Laboratory Tests 06/08/21 22:37 06/09/21 05:22 Microbiology Microbiology 06/08/21 Respiratory Virus Panel (PCR) (ANTHONY) - Final, Complete Discharge Medications Scheduled Aspirin (Aspirin EC) 81 Mg Tablet.dr, 81 MG PO DAILY, (Reported) Atorvastatin Calcium (Atorvastatin Calcium) 40 Mg Tablet, 40 MG PO QPM, (Reported) Bupropion HCl (Bupropion HCl Sr) 100 Mg Tab.sr.12h, 100 MG PO BID, (Reported) HASN'T STARTED Cholecalciferol (Vitamin D3) (Vitamin D3) 1,000 Unit Tablet, 5,000 UNITS PO QHS, (Reported) Clonazepam (Clonazepam) 1 Mg Tablet, 1 MG PO DAILY, (Reported) Fluticasone Propionate (Fluticasone Propionate) 16 Gm [place].susp, 2 SPRAYS PO BID, (Reported) Metoprolol Succinate (Metoprolol Succinate) 25 Mg Tab.er.24h, 25 MG PO QPM, (Reported) Pantoprazole Sodium (Pantoprazole Sodium) 40 Mg Tablet.dr, 40 MG PO BID, (Reported) Propylthiouracil (Propylthiouracil) 50 Mg Tablet, 50 MG PO DAILY, (Reported) Sucralfate (Sucralfate) 1 Gm Tablet, 1 GM PO ACHS Travoprost (Travatan Z) 0.004% 2.5ML Drops, 1 DROP OU QHS, (Reported) Trazodone HCl (Trazodone HCl) 50 Mg Tablet, 50 MG PO QHS, (Reported) Warfarin Sodium (Warfarin Sodium) 2.5 Mg Tablet, 2.5 MG PO QHS, (Reported) Scheduled PRN Acetaminophen (Acetaminophen) 500 Mg Tablet, 1,000 MG PO Q4H PRN for PAIN, (Reported) Linaclotide (Linzess) 145 Mcg Capsule, 145 MCG PO DAILY PRN for DIARRHEA, (Reported) Oxycodone HCl/Acetaminophen (Oxycodone-Acetaminophen 5-325) 1 Each Tablet, 1 TAB PO TIDP PRN for pain Polyvinyl Alcohol (Artificial Tears) 15 Ml Drops, 1 DROP OU QID PRN for DRY EYES, (Reported) Tramadol HCl (Tramadol HCl) 50 Mg Tablet, 50 MG PO BID PRN for PAIN LEVEL 5-7, (Reported) Allergies Coded Allergies: Contrast Media (Verified Allergy, Severe, "convulse", 11/22/19) Corticosteroids (Glucocorticoids) (Verified Allergy, Mild, ankle swelling, 04/02/20) Quinolones (Verified Allergy, Mild, rash, swelling, 04/02/20) Sulfa (Sulfonamide Antibiotics) (Verified Allergy, Mild, rash, 04/02/20) ciprofloxacin (Verified Allergy, Mild, rash, 04/02/20) codeine (Verified Allergy, Mild, rash, 04/02/20) metoclopramide (Verified Allergy, Mild, rash, 04/02/20) morphine (Verified Allergy, Mild, rash, 04/02/20) prochlorperazine (Verified Allergy, Mild, rash, 04/02/20) albuterol (Verified Allergy, Unknown, 03/29/20) iodine (Verified Allergy, Unknown, 03/29/20) sertraline (Verified Allergy, Unknown, 8/28/20) tetracycline (Verified Allergy, Unknown, 03/29/20) DALILA QUEZADA MD Jun 09, 2021 15:23
--- NOTE | 2021-06-09 17:22 | REP ---
INDICATION: ABD PAIN N/V. COMPARISON: None. TECHNIQUE: The procedure was performed under the direct supervision of Dr. Duque. The images were reviewed with Dr. Duque. Liquid barium was given in the erect position as well as liquid barium in the prone oblique position in order to perform a single contrast upper GI examination. Additionally liquid barium was given at the end of the examination in order to perform a small bowel follow through. A combination od fluoroscopy, spot films and last image hold technology was utilized, 2.2 minutes of fluoro time was utilized for this procedure. 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 The intestinal gas pattern is non-specific. There are bowel sutures noted in the right upper quadrant consistent with the patient's history of partial colectomy. The oral and pharyngeal stages of deglutition are unremarkable. Esophageal transport is prompt and efficient and there is no esophagitis, stricture, mucosal ring or hiatal hernia. The patient is status post hiatal hernia repair. The stomach dan are normally outlined. The rugal folds are smooth and regular. There is no gastritis neoplasm or ulcer disease. The duodenal dan are normally outlined . The mucosal folds are smooth and regular. There is no duodenitis pancreatitis peptic ulcer disease or neoplasm. The visualized portion of the proximal small bowel appears normal in course and caliber. The barium column was followed through the small bowel to the level of the terminal ileum. Small bowel transit time is approximately 1 hour. During fluoroscopy gentle palpation shows all loops are freely movable and pliable. There are no fixed or angulated loops. The small bowel mucosal pattern is normal in course and caliber. There is no transition to suggest a partial small-bowel obstruction. Spot filming of the terminal ileum shows it to be unremarkable. IMPRESSION: The patient is status post hiatal hernia repair. Otherwise, unremarkable single contrast upper GI and small bowel follow through examination. <Electronically signed by Pérez Crump > 06/09/21 [id number] <Electronically signed by Jonathan Duque > 06/09/21 [id number]
== END 2021-06-09 16:51 | disposition home or self-care (01) ==
LOC: M ED 09:56 → M ED INP 15:30 → INTOOBSV 15:30 → ENRESERV 15:44 → M MSPAV 16:29
PROVIDERS: ADMIT General Practice; ATTEND General Practice
DX: R10.9 Unspecified abdominal pain (principal); G89.29 Other chronic pain; M79.604 Pain in right leg; M79.605 Pain in left leg; I77.1 Stricture of artery; Z86.711 Personal history of pulmonary embolism; Z86.718 Personal history of other venous thrombosis and embolism; D68.59 Other primary thrombophilia; R07.9 Chest pain, unspecified; K58.0 Irritable bowel syndrome with diarrhea; K44.9 Diaphragmatic hernia without obstruction or gangrene; E05.90 Thyrotoxicosis, unspecified without thyrotoxic crisis or storm; N18.31 Chronic kidney disease, stage 3a; M54.9 Dorsalgia, unspecified; G43.909 Migraine, unspecified, not intractable, without status migrainosus; I12.9 Hypertensive chronic kidney disease with stage 1 through stage 4 chronic kidney disease, or unspecified chronic kidney disease; E78.00 Pure hypercholesterolemia, unspecified; Z86.16 Personal history of COVID-19; J47.9 Bronchiectasis, uncomplicated; E87.5 Hyperkalemia; J98.4 Other disorders of lung; N13.30 Unspecified hydronephrosis; R74.8 Abnormal levels of other serum enzymes; N94.89 Other specified conditions associated with female genital organs and menstrual cycle; Z79.899 Other long term (current) drug therapy; Z79.01 Long term (current) use of a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; Z79.82 Long term (current) use of aspirin; Z79.891 Long term (current) use of opiate analgesic; Z91.041 Radiographic dye allergy status; Z88.8 Allergy status to other drugs, medicaments and biological substances; Z88.1 Allergy status to other antibiotic agents; Z88.2 Allergy status to sulfonamides; Z88.5 Allergy status to narcotic agent; Z87.891 Personal history of nicotine dependence
CPT/HCPCS: 36415; 71045; 74176; 74246; 80048; 80076; 82550; 82553; 83690; 84132; 84439; 84443; 84484; 85025; 85027; 85379; 85610; 85730; 87798; 93005; 93041; 93925; 93970; 94760; 99285; C8901; G0378; J0610

== ENCOUNTER → 2021-06-12 | Outpatient (REF) | payer MEDICARE, OTHER ==
[~2021-06-12] MED LIST changes: +BUPR1TAB52 PO; +OXYC1TAB23 PO; +SUCR1TA PO; +TOLT2CAP4 PO
== END ==
LOC: M LAB REF 17:22
PROVIDERS: ATTEND Physician Assistant
DX: N39.0 Urinary tract infection, site not specified (principal)

== ENCOUNTER → 2021-06-16 | Outpatient (CLI) | payer MEDICARE, OTHER ==
[2021-06-16 10:30] LABS: BASO # 0.1 10^3/uL (0.0-0.2); BASO % 1.1 % (0.0-1.0); EOS # 0.3 10^3/uL (0.0-0.5); EOS % 6.4 % (0.0-3.0); HEMATOCRIT 39.4 % (36.0-47.0); HEMOGLOBIN 12.4 g/dl (12.0-15.5); LYMPH # 1.2 10^3/uL (1.5-5.0); LYMPH % 22.5 % (24.0-44.0); MEAN CORPUSCULAR HEMOGLOBIN 28.9 pg (27.0-33.0); MEAN CORPUSCULAR HGB CONC 31.5 g/dl (32.0-36.5); MEAN CORPUSCULAR VOLUME 91.8 fl (80.0-96.0); MONO # 0.5 10^3/uL (0.0-0.8); MONO % 9.6 % (2.0-8.0); NEUTROPHILS # 3.2 10^3/uL (1.5-8.5); PLATELET COUNT, AUTOMATED 242 10^3/uL (150-450); RED BLOOD COUNT 4.29 10^6/uL (4.00-5.40); WHITE BLOOD COUNT 5.3 10^3/uL (4.0-10.0)
[2021-06-16 10:46] LABS: ALBUMIN 3.4 GM/DL (3.2-5.2); BILIRUBIN,DIRECT 0.2 MG/DL (0.0-0.2); CALCIUM LEVEL 9.5 MG/DL (8.8-10.2); CREATININE FOR GFR 0.99 MG/DL (0.55-1.30); GLOMERULAR FILTRATION RATE 58.2 (>39); INR 1.59; POTASSIUM SERUM 4.6 MEQ/L (3.5-5.1); PROTHROMBIN TIME 19.4 SECONDS (12.7-14.5)
[2021-06-16 10:47] LABS: PARTIAL THROMBOPLASTIN TIME 33.5 SECONDS (25.9-37.0)
== END ==
LOC: M WUC 09:00
PROVIDERS: ATTEND Physician Assistant
DX: R74.8 Abnormal levels of other serum enzymes (principal)

== ENCOUNTER → 2021-06-20 | Outpatient (CLI) | payer MEDICARE, OTHER ==
--- NOTE | 2021-06-20 10:41 | REPMRS ---
Patient History The patient states she has not had a clinical breast exam in over a year. No known family history of cancer. Benign excisional biopsy of both breasts. Took estrogen for 1 month. Patient states no breast complaints today. Patient has signed MRS History Sheet. Digital Woman Screen Mammo: June 20, 2021 - Exam #: [id number] Bilateral CC and MLO view(s) were taken. Technologist: Cookie Camarillo, Technologist Prior study comparison: June 12, 2020, diagnostic bilateral mammo performed at [facility]. June 12, 2020, digital mammo diagnostic bilateral, performed at [facility]. January 19, 2020, bilateral digital mammo screening bilat, performed at [facility]. January 19, 2020, bilateral digital mammo screening bilat, performed at [facility] [employer] [facility]. July 05, 2018, digital mammo diagnostic bilateral, performed at [facility] [employer] [facility]. FINDINGS: There are scattered fibroglandular densities. Screening. Digital screening (2D) mammography was performed bilaterally in the CC and MLO projections. Additionally, breast tomosynthesis (3D mammography) was performed bilaterally in the CC and MLO projections. Todays exam was compared to the prior exam/exams. By history, the patient has no complaints of a palpable breast abnormality or other significant breast complaints. The Volpara volumetric breast density category is B, there are scattered areas of fibroglandular densities. The breasts are unchanged in size and shape. There is a stable, biopsy clip in the left breast. There are no mechelle-soft tissue densities or spiculated masses. There is no internal architectural distortion. There are no suspicious mechelle-calcific clusters. Skin thickening or nipple retraction is not present. IMPRESSION: BI-RADS Category 2- Benign Findings. There is no evidence of malignant alteration of the breasts. Followup examination recommended in one year. The lifetime Tyrer-Cuzick score is 2.4% This mammogram was read with the assistance of [employer],an FDA approved computer aided detection system for mammography. Negative x-ray reports should not delay surgical consultation if a dominant or clinically suspicious mass is present. Not all breast cancers can be identified by mammography. Therefore, we recommend that you continue to perform regular breast self-examination and physical examination and then promptly contact your physician of any concerns or changes. Adenosis and dense breasts may obscure an underlying neoplasm. No significant changes when compared with prior studies. Assessment: BI-RADS/ACR category 2 mammogram. Benign Findings. Recommendation Routine screening mammogram of both breasts in 1 year. Electronically Signed By: Alirio Patel MD 06/20/21 [id number]
== END ==
LOC: M WHC 08:38
PROVIDERS: ATTEND Physician Assistant
DX: Z12.31 Encounter for screening mammogram for malignant neoplasm of breast (principal)

== ENCOUNTER → 2021-07-02 | Outpatient (CLI) | payer MEDICARE, OTHER ==
[~2021-07-02] MED LIST changes: -MONT10TA10 PO; +MONT10TA97 PO; +OMEP-173 PO; -OMEP-218 PO; +SUCR1SS PO
[2021-07-02 16:34] LABS: INR 2.12; PROTHROMBIN TIME 24.1 SECONDS (12.7-14.5)
[2021-07-02 17:01] LABS: ALBUMIN 3.7 GM/DL (3.2-5.2); ALT/SGPT 22 U/L (12-78); BILIRUBIN,TOTAL 0.8 MG/DL (0.2-1.0); BLOOD UREA NITROGEN 17 MG/DL (7-18); CALCIUM LEVEL 9.3 MG/DL (8.8-10.2); CARBON DIOXIDE LEVEL 31 MEQ/L (21-32); CHLORIDE LEVEL 106 MEQ/L (98-107); CREATININE FOR GFR 0.95 MG/DL (0.55-1.30); GLOMERULAR FILTRATION RATE > 60.0 (>39); GLUCOSE, FASTING 141 MG/DL (70-100); LIPASE 115 U/L (73-393); SODIUM LEVEL 142 MEQ/L (136-145); TOTAL PROTEIN 6.9 GM/DL (6.4-8.2)
== END ==
LOC: M WUC 13:42
PROVIDERS: ATTEND Physician Assistant
DX: Z79.01 Long term (current) use of a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 (principal)

== ENCOUNTER → 2021-07-07 | Outpatient (CLI) | payer MEDICARE, OTHER ==
[~2021-07-07] MED LIST changes: +MONT10TA10 PO; -MONT10TA97 PO; -OMEP-173 PO; +OMEP-218 PO; -SUCR1SS PO
--- NOTE | 2021-07-07 12:09 | REP ---
INDICATION: PAIN. COMPARISON: 12/08/2016. TECHNIQUE: Two views left hip. FINDINGS: There is no evidence of acute fracture, dislocation or intrinsic bone disease. There is very mild joint space narrowing and subchondral sclerosis at the hip joint. IMPRESSION: Very mild degenerative changes of the hip joint without other significant finding. <Electronically signed by Jonathan Duque > 07/07/21 [id number]
--- NOTE | 2021-07-07 12:11 | REP ---
INDICATION: PAIN COMPARISON: 10/11/2012. TECHNIQUE: Three views left knee. FINDINGS: There is no evidence of acute fracture, dislocation, or intrinsic bone disease.There is no evidence of a significant joint effusion radiographically. IMPRESSION: Negative left knee series. <Electronically signed by Jonathan Duque > 07/07/21 [id number]
== END ==
LOC: M WUC 11:44
PROVIDERS: ATTEND Physician Assistant Medical
DX: M25.552 Pain in left hip (principal); M25.562 Pain in left knee; W01.0XXA Fall on same level from slipping, tripping and stumbling without subsequent striking against object, initial encounter

== ENCOUNTER → 2021-07-30 | Outpatient (REF) | payer MEDICARE, OTHER | LOC: M LAB REF 16:45 | PROVIDERS: ATTEND Physician Assistant | DX: N30.20 Other chronic cystitis without hematuria (principal) ==

== ENCOUNTER → 2021-08-11 | Outpatient (REF) | payer MEDICARE, OTHER ==
[~2021-08-11] MED LIST changes: -MONT10TA10 PO; +MONT10TA97 PO
== END ==
LOC: M LAB REF 12:16
PROVIDERS: ATTEND Physician Assistant Medical
DX: R11.0 Nausea (principal); R50.9 Fever, unspecified

== ENCOUNTER 2021-08-12 10:48 | Outpatient (CLI) | payer MEDICARE, OTHER ==
[~2021-08-12] VITALS: Ht 162.6 cm; Wt 68.0 kg
[~2021-08-12 10:48] MED LIST changes: +ALBUTEROL 90 MCG/ACT 8GM HFA INHALER INH PRN; +ALBUTEROL SULFATE 2.5 MG/0.5 ML INH NEB SOLN INH PRN; +EPINEPHrine INJ 1 MG/ML 1ML AMP IM PRN; +NS 1,000 ML IV SCH; +diphenhydrAMINE 50MG/ML VIAL (J1200) IV PRN; +methylPREDNISolone 125MG 2ML VIAL IV PRN
[2021-08-12] MEDS ORDERED: SOTROVIMAB 500 MG in NS 100 ML IV ONE (12:00)
[2021-08-12 12:08] VITALS: BP 153/65
[2021-08-12 12:38] VITALS: BP 131/61
[2021-08-12 13:38] VITALS: BP 101/53
[2021-08-12 14:32] LABS: INR 3.05; PROTHROMBIN TIME 31.9 SECONDS (12.7-14.5)
== END 2021-08-12 14:06 | disposition home or self-care (01) ==
LOC: M OPCLI4PR 10:48
PROVIDERS: ATTEND Physician Assistant Medical
DX: U07.1 COVID-19 (principal); Z88.1 Allergy status to other antibiotic agents; Z88.2 Allergy status to sulfonamides; Z88.8 Allergy status to other drugs, medicaments and biological substances
CPT/HCPCS: 36415; 85610; M0247

== ENCOUNTER → 2021-08-22 | Outpatient (CLI) | payer MEDICARE, OTHER ==
[~2021-08-22] MED LIST changes: -ALBUTEROL 90 MCG/ACT 8GM HFA INHALER INH PRN; -ALBUTEROL SULFATE 2.5 MG/0.5 ML INH NEB SOLN INH PRN; -EPINEPHrine INJ 1 MG/ML 1ML AMP IM PRN; -NS 1,000 ML IV SCH; +OMEP-173 PO; -OMEP-218 PO; -diphenhydrAMINE 50MG/ML VIAL (J1200) IV PRN; -methylPREDNISolone 125MG 2ML VIAL IV PRN
[2021-08-22 12:14] LABS: THYROID STIMULATING HORMONE 3.04 uIU/ML (0.358-3.740); TOTAL 25(OH) VITAMIN D 72.9 NG/ML (30.0-100.0)
== END ==
LOC: M WUC 09:19
PROVIDERS: ATTEND Internal Medicine Endocrinology, Diabetes & Metabolism
DX: M81.0 Age-related osteoporosis without current pathological fracture (principal); E55.9 Vitamin D deficiency, unspecified; E05.90 Thyrotoxicosis, unspecified without thyrotoxic crisis or storm

== ENCOUNTER → 2021-08-22 | Outpatient (REF) | payer MEDICARE, OTHER ==
[~2021-08-22] MED LIST changes: +SUCR1SS PO
[2021-08-22 17:42] LABS: APPEARANCE, URINE CLEAR (CLEAR); BACTERIA, URINE AUTO 1+ (NEGATIVE); BILIRUBIN, URINE AUTO NEGATIVE (NEGATIVE); BLOOD, URINE BLOOD 1+ (NEGATIVE); COLOR, URINE YELLOW (YELLOW); GLUCOSE, URINE (UA) AUTO NEGATIVE (NEGATIVE); KETONE, URINE AUTO NEGATIVE (NEGATIVE); LEUKOCYTE ESTERASE, URINE AUTO 1+ (NEGATIVE); MUCUS, URINE SMALL (NEGATIVE); NITRITE, URINE AUTO POSITIVE (NEGATIVE); PROTEIN, URINE AUTO NEGATIVE (NEGATIVE); RBC, URINE AUTO 6 /HPF (0-3); SPECIFIC GRAVITY URINE AUTO 1.014 (1.002-1.035); SQUAMOUS EPITHELIAL CELL UR AU 2 /HPF (0-6); UROBILINOGEN, URINE AUTO 0.2 mg/dL (0.0-2.0); WBC, URINE AUTO 38 /HPF (0-3)
== END ==
LOC: M SMT 17:02
PROVIDERS: ATTEND Physician Assistant
DX: N39.0 Urinary tract infection, site not specified (principal)

== ENCOUNTER → 2021-09-10 | Outpatient (CLI) | payer MEDICARE, OTHER ==
[~2021-09-10] MED LIST changes: -SUCR1SS PO
[2021-09-10 12:22] LABS: BASO # 0.1 10^3/uL (0.0-0.2); BASO % 0.9 % (0.0-1.0); EOS # 0.2 10^3/uL (0.0-0.5); EOS % 3.5 % (0.0-3.0); HEMATOCRIT 41.7 % (36.0-47.0); HEMOGLOBIN 13.1 g/dl (12.0-15.5); LYMPH # 1.4 10^3/uL (1.5-5.0); LYMPH % 24.6 % (24.0-44.0); MEAN CORPUSCULAR HEMOGLOBIN 28.9 pg (27.0-33.0); MEAN CORPUSCULAR HGB CONC 31.4 g/dl (32.0-36.5); MEAN CORPUSCULAR VOLUME 91.9 fl (80.0-96.0); MONO # 0.4 10^3/uL (0.0-0.8); MONO % 7.8 % (2.0-8.0); NEUTROPHILS # 3.4 10^3/uL (1.5-8.5); NEUTROPHILS % 62.8 % (36.0-66.0); PLATELET COUNT, AUTOMATED 240 10^3/uL (150-450); RED BLOOD COUNT 4.54 10^6/uL (4.00-5.40); WHITE BLOOD COUNT 5.5 10^3/uL (4.0-10.0)
[2021-09-10 13:06] LABS: ALBUMIN 3.8 GM/DL (3.2-5.2); ALT/SGPT 23 U/L (12-78); AMYLASE 66 U/L (25-115); BILIRUBIN,TOTAL 0.8 MG/DL (0.2-1.0); BLOOD UREA NITROGEN 16 MG/DL (7-18); CALCIUM LEVEL 9.2 MG/DL (8.8-10.2); CARBON DIOXIDE LEVEL 28 MEQ/L (21-32); CHLORIDE LEVEL 104 MEQ/L (98-107); CREATININE FOR GFR 0.91 MG/DL (0.55-1.30); GLOMERULAR FILTRATION RATE > 60.0 (>39); GLUCOSE, FASTING 102 MG/DL (70-100); LIPASE 234 U/L (73-393); POTASSIUM SERUM 4.3 MEQ/L (3.5-5.1); SODIUM LEVEL 138 MEQ/L (136-145); TOTAL PROTEIN 7.2 GM/DL (6.4-8.2)
== END ==
LOC: M WUC 09:23
PROVIDERS: ATTEND Internal Medicine Gastroenterology
DX: R07.9 Chest pain, unspecified (principal); R14.2 Eructation; R14.3 Flatulence; K59.00 Constipation, unspecified; K21.9 Gastro-esophageal reflux disease without esophagitis; K85.90 Acute pancreatitis without necrosis or infection, unspecified

== ENCOUNTER → 2021-09-11 | Outpatient (REF) | payer MEDICARE, OTHER ==
[2021-09-11 13:34] LABS: APPEARANCE, URINE CLEAR (CLEAR); BACTERIA, URINE AUTO NEGATIVE (NEGATIVE); BILIRUBIN, URINE AUTO NEGATIVE (NEGATIVE); BLOOD, URINE BLOOD NEGATIVE (NEGATIVE); COLOR, URINE YELLOW (YELLOW); GLUCOSE, URINE (UA) AUTO NEGATIVE (NEGATIVE); KETONE, URINE AUTO NEGATIVE (NEGATIVE); LEUKOCYTE ESTERASE, URINE AUTO TRACE (NEGATIVE); NITRITE, URINE AUTO NEGATIVE (NEGATIVE); PROTEIN, URINE AUTO NEGATIVE (NEGATIVE); RBC, URINE AUTO 1 /HPF (0-3); SQUAMOUS EPITHELIAL CELL UR AU 1 /HPF (0-6); UROBILINOGEN, URINE AUTO 0.2 mg/dL (0.0-2.0); WBC, URINE AUTO 2 /HPF (0-3)
== END ==
LOC: M SMT 12:46
PROVIDERS: ATTEND Nurse Practitioner Women's Health
DX: N39.0 Urinary tract infection, site not specified (principal)

== ENCOUNTER 2021-09-20 06:51 | Emergency (ER) | payer MEDICARE, OTHER ==
[~2021-09-20] VITALS: Ht 162.6 cm; Wt 69.0 kg
[2021-09-20] MEDS ORDERED: ASPIRIN 81 MG CHEW TABLET PO ONE (07:15)
[2021-09-20] MEDS: traMADol 50 MG TAB PO ONE ×2 (07:15→08:39)
[2021-09-20 08:43] LABS: BASO # 0.1 10^3/uL (0.0-0.2); BASO % 0.9 % (0.0-1.0); EOS # 0.1 10^3/uL (0.0-0.5); EOS % 2.3 % (0.0-3.0); HEMATOCRIT 40.3 % (36.0-47.0); HEMOGLOBIN 12.7 g/dl (12.0-15.5); LYMPH % 18.1 % (24.0-44.0); MEAN CORPUSCULAR HEMOGLOBIN 28.7 pg (27.0-33.0); MEAN CORPUSCULAR HGB CONC 31.5 g/dl (32.0-36.5); MONO # 0.5 10^3/uL (0.0-0.8); MONO % 9.1 % (2.0-8.0); NEUTROPHILS # 3.9 10^3/uL (1.5-8.5); NEUTROPHILS % 69.2 % (36.0-66.0); PLATELET COUNT, AUTOMATED 227 10^3/uL (150-450); RED BLOOD COUNT 4.43 10^6/uL (4.00-5.40); WHITE BLOOD COUNT 5.6 10^3/uL (4.0-10.0)
[2021-09-20] MEDS ORDERED: traMADol 50 MG TAB PO ONE (08:45)
[2021-09-20 09:06] LABS: CK-MB VALUE MASS < 1.0 NG/ML (<3.6); CPK CREATINE PHOSPHOKINASE 65 U/L (26-192); MB/CK RELATIVE INDEX 1.54 (< OR =4)
[2021-09-20 09:11] LABS: INR 1.65; PROTHROMBIN TIME 19.9 SECONDS (12.7-14.5)
[2021-09-20 09:13] LABS: ALBUMIN 3.5 GM/DL (3.2-5.2); ALT/SGPT 25 U/L (12-78); BILIRUBIN,DIRECT 0.2 MG/DL (0.0-0.2); BILIRUBIN,TOTAL 0.9 MG/DL (0.2-1.0); BLOOD UREA NITROGEN 12 MG/DL (7-18); CALCIUM LEVEL 8.8 MG/DL (8.8-10.2); CARBON DIOXIDE LEVEL 26 MEQ/L (21-32); CHLORIDE LEVEL 108 MEQ/L (98-107); CREATININE FOR GFR 0.84 MG/DL (0.55-1.30); GLOMERULAR FILTRATION RATE > 60.0 (>39); GLUCOSE, FASTING 97 MG/DL (70-100); LIPASE 94 U/L (73-393); NT-PRO BNP 175 PG/ML (<450); POTASSIUM SERUM 4.4 MEQ/L (3.5-5.1); SODIUM LEVEL 142 MEQ/L (136-145); TOTAL PROTEIN 6.8 GM/DL (6.4-8.2)
[2021-09-20] MEDS ORDERED: GI COCKTAIL 50ML BTL(HYOSCYAMINE/MAALOX/LIDOCAINE VISCOUS)(1:3:1) PO ONE (09:50)
[2021-09-20 10:04] LABS: CK-MB VALUE MASS < 1.0 NG/ML (<3.6); CPK CREATINE PHOSPHOKINASE 59 U/L (26-192); MB/CK RELATIVE INDEX 1.69 (< OR =4)
[2021-09-20] MEDS ORDERED: SUCR1SS PO (13:01)
[2021-09-20] MEDS ORDERED: TRAM50TA2 PO (13:02)
[2021-09-20 13:15] VITALS: BP 147/67
== END 2021-09-20 13:53 | disposition home or self-care (01) ==
LOC: M ED 06:51
DX: R07.9 Chest pain, unspecified (principal); R00.1 Bradycardia, unspecified; I12.9 Hypertensive chronic kidney disease with stage 1 through stage 4 chronic kidney disease, or unspecified chronic kidney disease; N18.9 Chronic kidney disease, unspecified; E78.5 Hyperlipidemia, unspecified; K58.8 Other irritable bowel syndrome; Z86.718 Personal history of other venous thrombosis and embolism; E03.9 Hypothyroidism, unspecified; Z86.16 Personal history of COVID-19; Z87.891 Personal history of nicotine dependence; Z88.1 Allergy status to other antibiotic agents; Z88.6 Allergy status to analgesic agent; Z88.8 Allergy status to other drugs, medicaments and biological substances; Z79.899 Other long term (current) drug therapy; Z79.01 Long term (current) use of a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

== ENCOUNTER → 2021-09-29 | Outpatient (REF) | payer MEDICARE, OTHER ==
[~2021-09-29] MED LIST changes: -D31000TA2 PO; +SUCR1SS PO; +VITA100093 PO
[2021-09-29 17:37] LABS: APPEARANCE, URINE CLOUDY (CLEAR); BACTERIA, URINE AUTO NEGATIVE (NEGATIVE); BILIRUBIN, URINE AUTO NEGATIVE (NEGATIVE); BLOOD, URINE BLOOD 1+ (NEGATIVE); COLOR, URINE YELLOW (YELLOW); GLUCOSE, URINE (UA) AUTO NEGATIVE (NEGATIVE); KETONE, URINE AUTO NEGATIVE (NEGATIVE); LEUKOCYTE ESTERASE, URINE AUTO 3+ (NEGATIVE); MUCUS, URINE SMALL (NEGATIVE); NITRITE, URINE AUTO POSITIVE (NEGATIVE); PROTEIN, URINE AUTO NEGATIVE (NEGATIVE); RBC, URINE AUTO 12 /HPF (0-3); SPECIFIC GRAVITY URINE AUTO 1.014 (1.002-1.035); SQUAMOUS EPITHELIAL CELL UR AU 1 /HPF (0-6); UROBILINOGEN, URINE AUTO 0.2 mg/dL (0.0-2.0); WBC, URINE AUTO TNTC /HPF (0-3)
== END ==
LOC: M LAB REF 16:03
PROVIDERS: ATTEND Obstetrics & Gynecology
DX: N39.41 Urge incontinence (principal); R35.1 Nocturia

== ENCOUNTER → 2021-10-20 | Outpatient (REF) | payer MEDICARE, OTHER | LOC: M LAB REF 16:50 | PROVIDERS: ATTEND Physician Assistant | DX: R10.30 Lower abdominal pain, unspecified (principal) ==

== ENCOUNTER → 2021-10-20 | Outpatient (CLI) | payer MEDICARE, OTHER ==
[~2021-10-20] MED LIST changes: +ESTR10TA; +LOVE1INJ SC; +PROL60SO SC
[2021-10-20 13:03] LABS: BASO # 0.1 10^3/uL (0.0-0.2); BASO % 1.3 % (0.0-1.0); EOS # 0.2 10^3/uL (0.0-0.5); EOS % 3.6 % (0.0-3.0); HEMATOCRIT 39.5 % (36.0-47.0); HEMOGLOBIN 12.8 g/dl (12.0-15.5); LYMPH # 1.4 10^3/uL (1.5-5.0); LYMPH % 25.3 % (24.0-44.0); MEAN CORPUSCULAR HEMOGLOBIN 29.3 pg (27.0-33.0); MEAN CORPUSCULAR HGB CONC 32.4 g/dl (32.0-36.5); MEAN CORPUSCULAR VOLUME 90.4 fl (80.0-96.0); MONO # 0.5 10^3/uL (0.0-0.8); NEUTROPHILS # 3.3 10^3/uL (1.5-8.5); NEUTROPHILS % 60.4 % (36.0-66.0); PLATELET COUNT, AUTOMATED 240 10^3/uL (150-450); RED BLOOD COUNT 4.37 10^6/uL (4.00-5.40); WHITE BLOOD COUNT 5.5 10^3/uL (4.0-10.0)
[2021-10-20 14:05] LABS: ALBUMIN 3.8 GM/DL (3.2-5.2); ALT/SGPT 28 U/L (12-78); BILIRUBIN,DIRECT 0.2 MG/DL (0.0-0.2); BLOOD UREA NITROGEN 14 MG/DL (7-18); CALCIUM LEVEL 8.8 MG/DL (8.8-10.2); CARBON DIOXIDE LEVEL 31 MEQ/L (21-32); CHLORIDE LEVEL 107 MEQ/L (98-107); CREATININE FOR GFR 0.89 MG/DL (0.55-1.30); GLOMERULAR FILTRATION RATE > 60.0 (>39); GLUCOSE, FASTING 90 MG/DL (70-100); LIPASE 183 U/L (73-393); POTASSIUM SERUM 4.4 MEQ/L (3.5-5.1); SODIUM LEVEL 139 MEQ/L (136-145)
== END ==
LOC: M RAD 12:13
PROVIDERS: ATTEND Physician Assistant
DX: R10.30 Lower abdominal pain, unspecified (principal)

== ENCOUNTER → 2021-11-04 | Outpatient (CLI) | payer MEDICARE, OTHER ==
[~2021-11-04] MED LIST changes: -ESTR10TA; -LOVE1INJ SC; -PROL60SO SC
[2021-11-04 10:19] LABS: APPEARANCE, URINE HAZY (CLEAR); BACTERIA, URINE AUTO 1+ (NEGATIVE); BILIRUBIN, URINE AUTO NEGATIVE (NEGATIVE); BLOOD, URINE BLOOD NEGATIVE (NEGATIVE); COLOR, URINE YELLOW (YELLOW); GLUCOSE, URINE (UA) AUTO NEGATIVE (NEGATIVE); KETONE, URINE AUTO NEGATIVE (NEGATIVE); LEUKOCYTE ESTERASE, URINE AUTO 1+ (NEGATIVE); MUCUS, URINE SMALL (NEGATIVE); NITRITE, URINE AUTO NEGATIVE (NEGATIVE); PROTEIN, URINE AUTO NEGATIVE (NEGATIVE); RBC, URINE AUTO 4 /HPF (0-3); SPECIFIC GRAVITY URINE AUTO 1.014 (1.002-1.035); SQUAMOUS EPITHELIAL CELL UR AU 7 /HPF (0-6); UROBILINOGEN, URINE AUTO 0.2 mg/dL (0.0-2.0); WBC, URINE AUTO 9 /HPF (0-3)
[2021-11-04 10:20] LABS: BASO # 0.1 10^3/uL (0.0-0.2); BASO % 1.2 % (0.0-1.0); EOS # 0.2 10^3/uL (0.0-0.5); EOS % 3.7 % (0.0-3.0); HEMATOCRIT 39.5 % (36.0-47.0); HEMOGLOBIN 12.7 g/dl (12.0-15.5); LYMPH # 1.2 10^3/uL (1.5-5.0); LYMPH % 22.1 % (24.0-44.0); MEAN CORPUSCULAR HEMOGLOBIN 29.5 pg (27.0-33.0); MEAN CORPUSCULAR HGB CONC 32.2 g/dl (32.0-36.5); MEAN CORPUSCULAR VOLUME 91.9 fl (80.0-96.0); MONO # 0.4 10^3/uL (0.0-0.8); MONO % 8.1 % (2.0-8.0); NEUTROPHILS # 3.4 10^3/uL (1.5-8.5); NEUTROPHILS % 64.5 % (36.0-66.0); PLATELET COUNT, AUTOMATED 227 10^3/uL (150-450); WHITE BLOOD COUNT 5.2 10^3/uL (4.0-10.0)
[2021-11-04 10:28] LABS: INR 2.05; PROTHROMBIN TIME 23.5 SECONDS (12.7-14.5)
[2021-11-04 10:43] LABS: HEMOGLOBIN A1c 5.6 %
[2021-11-04 10:48] LABS: ALBUMIN 3.6 GM/DL (3.2-5.2); ALT/SGPT 26 U/L (12-78); BLOOD UREA NITROGEN 15 MG/DL (7-18); CALCIUM LEVEL 8.9 MG/DL (8.8-10.2); CARBON DIOXIDE LEVEL 31 MEQ/L (21-32); CHLORIDE LEVEL 108 MEQ/L (98-107); CREATININE FOR GFR 0.87 MG/DL (0.55-1.30); GLOMERULAR FILTRATION RATE > 60.0 (>39); GLUCOSE, FASTING 89 MG/DL (70-100); POTASSIUM SERUM 4.6 MEQ/L (3.5-5.1); SODIUM LEVEL 142 MEQ/L (136-145); TOTAL PROTEIN 6.9 GM/DL (6.4-8.2)
== END ==
LOC: M LAB 08:40
PROVIDERS: ATTEND Physician Assistant
DX: Z01.818 Encounter for other preprocedural examination (principal); Z79.01 Long term (current) use of a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; R39.9 Unspecified symptoms and signs involving the genitourinary system

== ENCOUNTER → 2021-11-22 | Outpatient (CLI) | payer MEDICARE, OTHER ==
[~2021-11-22] MED LIST changes: +ESTR10TA; +LOVE1INJ SC; +PROL60SO SC
== END ==
LOC: M LABSMTC 09:26
PROVIDERS: ATTEND Anesthesiology
DX: Z01.812 Encounter for preprocedural laboratory examination (principal); Z20.822 Contact with and (suspected) exposure to COVID-19

== ENCOUNTER 2021-11-27 07:00 | Day surgery (SDC) | payer MEDICARE, OTHER ==
[~2021-11-27] VITALS: Ht 162.6 cm; Wt 69.6 kg
[~2021-11-27 07:00] MED LIST changes: +LR 1,000 ML IV ONE
[2021-11-27 07:52] LABS: INR 0.96; PROTHROMBIN TIME 13.2 SECONDS (12.7-14.5)
[2021-11-27] MEDS ORDERED: propofoL 200 MG/20 ML VIAL As Ordered ONE (07:52)
[2021-11-27] MEDS ORDERED: LIDOCAINE 2% 100MG/5ML SDV (FOR ANES.) As Ordered ONE (07:52)
[2021-11-27] MEDS ORDERED: MIDAZOLAM INJ 2MG/2ML VIAL (J2250 PER 1MG) As Ordered ONE (07:53)
[2021-11-27] MEDS ORDERED: fentaNYL 100 MCG/2 ML INJECTION As Ordered ONE (07:53)
[2021-11-27] MEDS ORDERED: LIDOCAINE 2% 5ML JELLY UROJET As Ordered ONE (08:32)
[2021-11-27] MEDS ORDERED: LR 1,000 ML IV SCH (09:45)
[2021-11-27] MEDS ORDERED: ONDANSETRON 4MG/2ML VIAL IV PRN (09:45)
[2021-11-27] MEDS ORDERED: ACETAMINOPHEN TAB 650MG DOSE (2X325MG) PO PRN (09:50)
[2021-11-27 10:50] VITALS: BP 123/66
== END 2021-11-27 11:38 | disposition home or self-care (01) ==
LOC: M SDC 07:00
PROVIDERS: ATTEND Obstetrics & Gynecology
DX: R31.9 Hematuria, unspecified (principal); I10 Essential (primary) hypertension; E78.5 Hyperlipidemia, unspecified; E05.90 Thyrotoxicosis, unspecified without thyrotoxic crisis or storm; K57.92 Diverticulitis of intestine, part unspecified, without perforation or abscess without bleeding; M81.0 Age-related osteoporosis without current pathological fracture; G43.909 Migraine, unspecified, not intractable, without status migrainosus; K21.9 Gastro-esophageal reflux disease without esophagitis; Z86.718 Personal history of other venous thrombosis and embolism; Z86.711 Personal history of pulmonary embolism; Z79.02 Long term (current) use of antithrombotics/antiplatelets; Z79.01 Long term (current) use of a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; F41.9 Anxiety disorder, unspecified; F32.9 Major depressive disorder, single episode, unspecified; N18.2 Chronic kidney disease, stage 2 (mild); Z79.899 Other long term (current) drug therapy; Z79.82 Long term (current) use of aspirin; Z91.040 Latex allergy status; Z88.8 Allergy status to other drugs, medicaments and biological substances; Z88.2 Allergy status to sulfonamides; Z88.5 Allergy status to narcotic agent; Z88.1 Allergy status to other antibiotic agents
CPT/HCPCS: 36415; 52000; 85610; 88302; J2250; J3010

== ENCOUNTER → 2021-12-10 | Outpatient (REF) | payer MEDICARE, OTHER ==
[~2021-12-10] MED LIST changes: -LR 1,000 ML IV ONE
[2021-12-10 16:58] LABS: APPEARANCE, URINE CLEAR (CLEAR); BACTERIA, URINE AUTO NEGATIVE (NEGATIVE); BILIRUBIN, URINE AUTO NEGATIVE (NEGATIVE); BLOOD, URINE BLOOD NEGATIVE (NEGATIVE); COLOR, URINE YELLOW (YELLOW); GLUCOSE, URINE (UA) AUTO NEGATIVE (NEGATIVE); KETONE, URINE AUTO NEGATIVE (NEGATIVE); LEUKOCYTE ESTERASE, URINE AUTO TRACE (NEGATIVE); NITRITE, URINE AUTO NEGATIVE (NEGATIVE); PROTEIN, URINE AUTO NEGATIVE (NEGATIVE); RBC, URINE AUTO 0 /HPF (0-3); SPECIFIC GRAVITY URINE AUTO 1.004 (1.002-1.035); SQUAMOUS EPITHELIAL CELL UR AU 0 /HPF (0-6); UROBILINOGEN, URINE AUTO 0.2 mg/dL (0.0-2.0); WBC, URINE AUTO 8 /HPF (0-3)
== END ==
LOC: M LAB REF 16:18
PROVIDERS: ATTEND Obstetrics & Gynecology
DX: R31.9 Hematuria, unspecified (principal)

== ENCOUNTER → 2021-12-10 | Outpatient (CLI) | payer MEDICARE, OTHER ==
[~2021-12-10] MED LIST changes: +D 50CAP2 PO; +DEPA250T2 PO; +FLUO10CA18 PO; +FLUTISP; -FLUTISP PO; +OMEP40CA5 PO; +VAGI10TA PV
== END ==
LOC: M WHC 08:44
PROVIDERS: ATTEND Internal Medicine Endocrinology, Diabetes & Metabolism
DX: Z13.820 Encounter for screening for osteoporosis (principal); M85.88 Other specified disorders of bone density and structure, other site; M85.851 Other specified disorders of bone density and structure, right thigh; M85.852 Other specified disorders of bone density and structure, left thigh; B95.2 Enterococcus as the cause of diseases classified elsewhere; N39.0 Urinary tract infection, site not specified

== ENCOUNTER 2021-12-18 13:07 | Observation (INO) | payer MEDICARE, OTHER ==
[~2021-12-18] VITALS: Ht 162.6 cm; Wt 64.7 kg
[~2021-12-18 13:07] MED LIST changes: -D 50CAP2 PO; -VAGI10TA PV
[2021-12-18] MEDS ORDERED: NS 1,000 ML IV ONE (17:20)
[2021-12-18 20:13] LABS: VENOUS BASE EXCESS -1.7 (-2.0-2.0); VENOUS HCO3 25.2 MEQ/L (23.0-27.0); VENOUS O2 SATURATION 70.7 % (60.0-80.0); VENOUS PARTIAL PRESSURE CO2 51.4 mmHg (38.0-50.0); VENOUS PARTIAL PRESSURE O2 39.3 mmHg (30.0-50.0); VENOUS PH 7.309 UNITS (7.330-7.430); VENOUS STANDARD HCO3 22.4 MEQ/L; VENOUS TOTAL CO2 26.8 MEQ/L (24.0-28.0)
[2021-12-18 20:29] LABS: BASO # 0.1 10^3/uL (0.0-0.2); BASO % 1.1 % (0.0-1.0); EOS # 0.2 10^3/uL (0.0-0.5); EOS % 3.3 % (0.0-3.0); HEMATOCRIT 40.9 % (36.0-47.0); HEMOGLOBIN 13.2 g/dl (12.0-15.5); LYMPH # 1.5 10^3/uL (1.5-5.0); LYMPH % 21.2 % (24.0-44.0); MEAN CORPUSCULAR HEMOGLOBIN 29.8 pg (27.0-33.0); MEAN CORPUSCULAR HGB CONC 32.3 g/dl (32.0-36.5); MEAN CORPUSCULAR VOLUME 92.3 fl (80.0-96.0); MONO # 0.6 10^3/uL (0.0-0.8); MONO % 8.2 % (2.0-8.0); NEUTROPHILS # 4.8 10^3/uL (1.5-8.5); NEUTROPHILS % 65.9 % (36.0-66.0); PLATELET COUNT, AUTOMATED 254 10^3/uL (150-450); RED BLOOD COUNT 4.43 10^6/uL (4.00-5.40); WHITE BLOOD COUNT 7.2 10^3/uL (4.0-10.0)
[2021-12-18 20:43] LABS: INR 2.21; PROTHROMBIN TIME 24.9 SECONDS (12.7-14.5)
[2021-12-18 20:44] LABS: CK-MB VALUE MASS < 1.0 NG/ML (<3.6); CPK CREATINE PHOSPHOKINASE 68 U/L (26-192); MB/CK RELATIVE INDEX 1.47 (< OR =4)
[2021-12-18 20:51] LABS: BLOOD UREA NITROGEN 15 MG/DL (7-18); CALCIUM LEVEL 9.5 MG/DL (8.8-10.2); CARBON DIOXIDE LEVEL 34 MEQ/L (21-32); CHLORIDE LEVEL 104 MEQ/L (98-107); CREATININE FOR GFR 0.89 MG/DL (0.55-1.30); FREE T4 0.79 NG/DL (0.76-1.46); GLOMERULAR FILTRATION RATE > 60.0 (>39); GLUCOSE, FASTING 102 MG/DL (70-100); MAGNESIUM LEVEL 2.1 MG/DL (1.8-2.4); POTASSIUM SERUM 4.5 MEQ/L (3.5-5.1); SODIUM LEVEL 139 MEQ/L (136-145)
[2021-12-18] MEDS ORDERED: traMADol 50 MG TAB PO ONE (21:30)
[2021-12-18 21:38] LABS: ABG BASE EXCESS 0.6 (-2.0-2.0); ABG HCO3 25.1 MEQ/L (22.0-26.0); ABG O2 SATURATION 96.2 % (95.0-99.0); ABG PARTIAL PRESSURE CO2 40.3 mmHg (35.0-45.0); ABG PARTIAL PRESSURE O2 80.2 mmHg (75.0-100.0); ABG TOTAL CO2 26.4 MEQ/L (23.0-31.0); ABG pH (ARTERIAL) 7.413 UNITS (7.350-7.450)
[2021-12-18 21:40] LABS: D-DIMER QUANT < 270 ng/ml (<500)
[2021-12-18] MEDS ORDERED: ACETAMINOPHEN TAB 650MG DOSE (2X325MG) PO PRN (22:25)
[2021-12-18 23:04] LABS: NT-PRO BNP 251 PG/ML (<450)
[2021-12-18 23:29] LABS: RSV AMPLIFICATION NEGATIVE (NEGATIVE)
[2021-12-19] VITALS (8 sets, daily range): BP systolic 133–178; BP diastolic 64–88; PULSE 69
[2021-12-19] MEDS ORDERED: traMADol 50 MG TAB PO PRN ×2 (00:35→10:30)
[2021-12-19] MEDS: NS 1,000 ML IV SCH ×2 (00:35→04:30)
[2021-12-19] MEDS ORDERED: LIDOCAINE 5% (LIDODERM) PATCH TD ONE (01:00)
[2021-12-19 01:15] LABS: SALICYLATE LEVEL < 1.7 MG/DL (5.0-30.0)
[2021-12-19 01:27] LABS: ACETAMINOPHEN LEVEL < 2.0 UG/ML (10.0-30.0)
[2021-12-19] MEDS ORDERED: TRAM50TA2 PO (02:04)
[2021-12-19] MEDS ORDERED: VAGI10TA PV (02:04)
[2021-12-19] MEDS ORDERED: D 50CAP2 PO (02:04)
[2021-12-19] MEDS ORDERED: BUPR1TAB52 PO (02:04)
[2021-12-19] MEDS ORDERED: HOME MED LIST COMPLETE! XX SCH (02:10)
[2021-12-19 06:10] LABS: HEMATOCRIT 36.3 % (36.0-47.0); HEMOGLOBIN 12.1 g/dl (12.0-15.5); MEAN CORPUSCULAR HEMOGLOBIN 30.3 pg (27.0-33.0); MEAN CORPUSCULAR HGB CONC 33.3 g/dl (32.0-36.5); MEAN CORPUSCULAR VOLUME 90.8 fl (80.0-96.0); PLATELET COUNT, AUTOMATED 213 10^3/uL (150-450); WHITE BLOOD COUNT 5.5 10^3/uL (4.0-10.0)
[2021-12-19 06:42] LABS: BLOOD UREA NITROGEN 13 MG/DL (7-18); CALCIUM LEVEL 8.7 MG/DL (8.8-10.2); CARBON DIOXIDE LEVEL 26 MEQ/L (21-32); CHLORIDE LEVEL 110 MEQ/L (98-107); CREATININE FOR GFR 0.77 MG/DL (0.55-1.30); GLOMERULAR FILTRATION RATE > 60.0 (>39); GLUCOSE, FASTING 95 MG/DL (70-100); POTASSIUM SERUM 4.4 MEQ/L (3.5-5.1); SODIUM LEVEL 144 MEQ/L (136-145)
[2021-12-19 10:09] LABS: CK-MB VALUE MASS 1.3 NG/ML (<3.6); MB/CK RELATIVE INDEX 1.46 (< OR =4)
[2021-12-19] MEDS ORDERED: POLYVINYL ALCOHOL OPHTH SOLN 15 ML(LIQUITEARS) OU PRN (10:30)
[2021-12-19] MEDS: clonazePAM 1 MG TAB PO SCH (12:10)
[2021-12-19] MEDS: ASPIRIN 81MG ENTERIC TABLET PO SCH (12:10)
[2021-12-19] MEDS: METOPROLOL SUCC *XL* 25MG TAB (TopROL *XL*) PO SCH (12:11)
[2021-12-19] MEDS ORDERED: **NOTE PATIENT COMMENT** MISC XX SCH (13:00)
[2021-12-19] MEDS: buPROPion (WELLBUTRIN SR) 100 MG SR TAB PO SCH ×3 (13:54→20:31)
[2021-12-19] MEDS: FLUTICASONE PROP 0.05% NASAL SPRAY 16 GM (FLONASE) SCH ×2 (13:54→20:31)
[2021-12-19] MEDS: propylthiouraciL 50 MG TAB PO SCH (15:48)
[2021-12-19] MEDS ORDERED: WARFARIN SOD 2.5MG TAB PO SCH (17:00)
[2021-12-19] MEDS: DIVALPROEX 250MG *ER* TAB PO SCH (17:57)
[2021-12-19] MEDS ORDERED: LATANOPROST 0.005% OPHTH SOLN 2.5 ML OU SCH (21:00)
[2021-12-19] MEDS ORDERED: ATORVASTATIN 20 MG TAB PO SCH (21:00)
[2021-12-20 04:00] VITALS: BP 108/53
[2021-12-20 04:51] LABS: HEMATOCRIT 35.8 % (36.0-47.0); HEMOGLOBIN 11.6 g/dl (12.0-15.5); MEAN CORPUSCULAR HGB CONC 32.4 g/dl (32.0-36.5); MEAN CORPUSCULAR VOLUME 92.5 fl (80.0-96.0); PLATELET COUNT, AUTOMATED 204 10^3/uL (150-450); RED BLOOD COUNT 3.87 10^6/uL (4.00-5.40); WHITE BLOOD COUNT 6.2 10^3/uL (4.0-10.0)
[2021-12-20 05:01] LABS: INR 2.06; PROTHROMBIN TIME 23.6 SECONDS (12.7-14.5)
[2021-12-20 05:02] LABS: PARTIAL THROMBOPLASTIN TIME 40.3 SECONDS (25.9-37.0)
[2021-12-20 05:17] LABS: ALBUMIN 2.8 GM/DL (3.2-5.2); ALT/SGPT 24 U/L (12-78); BILIRUBIN,TOTAL 0.5 MG/DL (0.2-1.0); BLOOD UREA NITROGEN 20 MG/DL (7-18); CALCIUM LEVEL 8.4 MG/DL (8.8-10.2); CARBON DIOXIDE LEVEL 26 MEQ/L (21-32); CHLORIDE LEVEL 110 MEQ/L (98-107); GLOMERULAR FILTRATION RATE > 60.0 (>39); GLUCOSE, FASTING 99 MG/DL (70-100); POTASSIUM SERUM 4.6 MEQ/L (3.5-5.1); SODIUM LEVEL 142 MEQ/L (136-145); TOTAL PROTEIN 5.9 GM/DL (6.4-8.2)
[2021-12-20 06:00] VITALS: BP 133/66
[2021-12-20 08:04] VITALS: BP_SYST 120; BP_SYST 123; BP_SYST 127; BP_DIAS 57; BP_DIAS 58
[2021-12-20] MEDS: buPROPion (WELLBUTRIN SR) 100 MG SR TAB PO SCH (10:16)
[2021-12-20] MEDS: ASPIRIN 81MG ENTERIC TABLET PO SCH (10:16)
[2021-12-20 10:17] VITALS: BP 123/58
[2021-12-20] MEDS: clonazePAM 1 MG TAB PO SCH (10:17)
[2021-12-20] MEDS: propylthiouraciL 50 MG TAB PO SCH (10:17)
[2021-12-20] MEDS: FLUTICASONE PROP 0.05% NASAL SPRAY 16 GM (FLONASE) SCH (10:17)
[2021-12-20] MEDS: METOPROLOL SUCC *XL* 25MG TAB (TopROL *XL*) PO SCH (10:17)
[2021-12-20] MEDS: DIVALPROEX 250MG *ER* TAB PO SCH (10:17)
[2021-12-20 11:59] VITALS: BP 133/60
[2021-12-20] MEDS ORDERED: DEPA250T2 PO (13:21)
[2021-12-22 12:29] LABS: VITAMIN B12 LEVEL 283 PG/ML (247-911)
== END 2021-12-20 15:19 | disposition home or self-care (01) ==
LOC: M ED 13:07 → M ED INP 13:08 → M PCU 12-19 04:00
PROVIDERS: ADMIT Internal Medicine; ATTEND Internal Medicine
DX: R51.9 Headache, unspecified (principal); R42 Dizziness and giddiness; R29.6 Repeated falls; R07.9 Chest pain, unspecified; I65.23 Occlusion and stenosis of bilateral carotid arteries; R06.02 Shortness of breath; N39.0 Urinary tract infection, site not specified; B96.5 Pseudomonas (aeruginosa) (mallei) (pseudomallei) as the cause of diseases classified elsewhere; D68.59 Other primary thrombophilia; Z86.718 Personal history of other venous thrombosis and embolism; Z86.711 Personal history of pulmonary embolism; F41.9 Anxiety disorder, unspecified; F32.9 Major depressive disorder, single episode, unspecified; K58.1 Irritable bowel syndrome with constipation; N18.30 Chronic kidney disease, stage 3 unspecified; E05.90 Thyrotoxicosis, unspecified without thyrotoxic crisis or storm; E78.00 Pure hypercholesterolemia, unspecified; M54.16 Radiculopathy, lumbar region; M50.30 Other cervical disc degeneration, unspecified cervical region; Z87.891 Personal history of nicotine dependence; Z79.899 Other long term (current) drug therapy; Z79.82 Long term (current) use of aspirin; Z79.890 Hormone replacement therapy; Z79.01 Long term (current) use of a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; Z91.041 Radiographic dye allergy status; Z88.8 Allergy status to other drugs, medicaments and biological substances; Z88.1 Allergy status to other antibiotic agents; Z88.2 Allergy status to sulfonamides; Z88.5 Allergy status to narcotic agent; R14.0 Abdominal distension (gaseous)
CPT/HCPCS: 36415; 36600; 70450; 70544; 70551; 71046; 72125; 74176; 80048; 80053; 80143; 81001; 82375; 82550; 82553; 82607; 82803; 83735; 83880; 84439; 84443; 84484; 85025; 85027; 85379; 85610; 85730; 86850; 86900; 86901; 87088; 87186; 87631; 93005; 93306; 93880; 97116; 97161; 99285; G0378

== ENCOUNTER → 2021-12-18 | Outpatient (CLI) | payer MEDICARE, OTHER ==
[~2021-12-18] MED LIST changes: -DEPA250T2 PO
== END ==
LOC: M RAD 09:02
PROVIDERS: ATTEND Internal Medicine Cardiovascular Disease
DX: R14.0 Abdominal distension (gaseous) (principal)

== ENCOUNTER → 2021-12-22 | Outpatient (REF) | payer MEDICARE, OTHER ==
[~2021-12-22] MED LIST changes: +D 50CAP2 PO; +DEPA250T2 PO; +VAGI10TA PV
[2021-12-22 17:42] LABS: APPEARANCE, URINE HAZY (CLEAR); BACTERIA, URINE AUTO NEGATIVE (NEGATIVE); BILIRUBIN, URINE AUTO NEGATIVE (NEGATIVE); BLOOD, URINE BLOOD 1+ (NEGATIVE); COLOR, URINE YELLOW (YELLOW); GLUCOSE, URINE (UA) AUTO NEGATIVE (NEGATIVE); KETONE, URINE AUTO NEGATIVE (NEGATIVE); LEUKOCYTE ESTERASE, URINE AUTO 1+ (NEGATIVE); MUCUS, URINE SMALL (NEGATIVE); NITRITE, URINE AUTO NEGATIVE (NEGATIVE); PROTEIN, URINE AUTO NEGATIVE (NEGATIVE); RBC, URINE AUTO 6 /HPF (0-3); SPECIFIC GRAVITY URINE AUTO 1.011 (1.002-1.035); SQUAMOUS EPITHELIAL CELL UR AU 1 /HPF (0-6); UROBILINOGEN, URINE AUTO 0.2 mg/dL (0.0-2.0); WBC, URINE AUTO 32 /HPF (0-3)
== END ==
LOC: M LAB REF 16:37
PROVIDERS: ATTEND Obstetrics & Gynecology
DX: R31.9 Hematuria, unspecified (principal); N32.81 Overactive bladder; R14.0 Abdominal distension (gaseous)

== ENCOUNTER → 2021-12-23 | Outpatient (CLI) | payer MEDICARE, OTHER ==
[2021-12-23 20:11] LABS: BASO # 0.1 10^3/uL (0.0-0.2); EOS # 0.3 10^3/uL (0.0-0.5); EOS % 3.5 % (0.0-3.0); HEMATOCRIT 39.8 % (36.0-47.0); LYMPH # 1.7 10^3/uL (1.5-5.0); LYMPH % 21.9 % (24.0-44.0); MEAN CORPUSCULAR HEMOGLOBIN 30.7 pg (27.0-33.0); MEAN CORPUSCULAR HGB CONC 32.7 g/dl (32.0-36.5); MEAN CORPUSCULAR VOLUME 93.9 fl (80.0-96.0); MONO # 0.6 10^3/uL (0.0-0.8); MONO % 7.7 % (2.0-8.0); NEUTROPHILS % 65.5 % (36.0-66.0); PLATELET COUNT, AUTOMATED 258 10^3/uL (150-450); RED BLOOD COUNT 4.24 10^6/uL (4.00-5.40); WHITE BLOOD COUNT 7.7 10^3/uL (4.0-10.0)
[2021-12-23 20:36] LABS: ALBUMIN 3.9 GM/DL (3.2-5.2); BILIRUBIN,TOTAL 1.1 MG/DL (0.2-1.0); CALCIUM LEVEL 9.1 MG/DL (8.8-10.2); CREATININE FOR GFR 1.08 MG/DL (0.55-1.30); GLOMERULAR FILTRATION RATE 52.5 (>39); POTASSIUM SERUM 4.3 MEQ/L (3.5-5.1); TOTAL PROTEIN 7.2 GM/DL (6.4-8.2)
[2021-12-23 20:40] LABS: INR 2.23; PROTHROMBIN TIME 25.1 SECONDS (12.7-14.5)
[2021-12-23 20:42] LABS: PARTIAL THROMBOPLASTIN TIME 39.9 SECONDS (25.9-37.0)
== END ==
LOC: M WUC 14:24
PROVIDERS: ATTEND Physician Assistant
DX: T58.11XA Toxic effect of carbon monoxide from utility gas, accidental (unintentional), initial encounter (principal); Z79.01 Long term (current) use of a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

== ENCOUNTER 2021-12-25 17:48 | Emergency (ER) | payer MEDICARE, OTHER ==
[~2021-12-25] VITALS: Ht 162.6 cm; Wt 70.5 kg
[2021-12-25] MEDS ORDERED: ACETAMINOPHEN 325 MG TAB PO ONE (20:10)
[2021-12-25 20:44] LABS: BASO # 0.1 10^3/uL (0.0-0.2); BASO % 1.1 % (0.0-1.0); EOS # 0.3 10^3/uL (0.0-0.5); EOS % 3.6 % (0.0-3.0); HEMATOCRIT 39.8 % (36.0-47.0); HEMOGLOBIN 12.8 g/dl (12.0-15.5); LYMPH # 1.9 10^3/uL (1.5-5.0); LYMPH % 26.3 % (24.0-44.0); MEAN CORPUSCULAR HEMOGLOBIN 29.7 pg (27.0-33.0); MEAN CORPUSCULAR HGB CONC 32.2 g/dl (32.0-36.5); MEAN CORPUSCULAR VOLUME 92.3 fl (80.0-96.0); MONO # 0.6 10^3/uL (0.0-0.8); MONO % 7.8 % (2.0-8.0); NEUTROPHILS # 4.3 10^3/uL (1.5-8.5); NEUTROPHILS % 60.8 % (36.0-66.0); PLATELET COUNT, AUTOMATED 232 10^3/uL (150-450); RED BLOOD COUNT 4.31 10^6/uL (4.00-5.40)
[2021-12-25 21:06] LABS: ERYTHROCYTE SEDIMENTATION RATE 29 mm/hr (0-30)
[2021-12-25 21:08] LABS: BLOOD UREA NITROGEN 20 MG/DL (7-18); CARBON DIOXIDE LEVEL 32 MEQ/L (21-32); CHLORIDE LEVEL 104 MEQ/L (98-107); CREATININE FOR GFR 0.93 MG/DL (0.55-1.30); GLOMERULAR FILTRATION RATE > 60.0 (>39); GLUCOSE, FASTING 98 MG/DL (70-100); POTASSIUM SERUM 4.5 MEQ/L (3.5-5.1); SODIUM LEVEL 137 MEQ/L (136-145)
[2021-12-25 22:43] VITALS: BP 138/76
== END 2021-12-25 22:45 | disposition home or self-care (01) ==
LOC: M ED 17:48
DX: R51.9 Headache, unspecified (principal); R42 Dizziness and giddiness; Z86.718 Personal history of other venous thrombosis and embolism; F32.A Depression, unspecified; F41.9 Anxiety disorder, unspecified; Z88.1 Allergy status to other antibiotic agents; Z88.2 Allergy status to sulfonamides; Z88.8 Allergy status to other drugs, medicaments and biological substances; Z79.899 Other long term (current) drug therapy; Z79.01 Long term (current) use of a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

== ENCOUNTER → 2022-01-08 | Outpatient (CLI) | payer MEDICARE, OTHER | LOC: M WUC 14:19 | PROVIDERS: ATTEND Psychiatry & Neurology Neurology | DX: G43.819 Other migraine, intractable, without status migrainosus (principal) ==

== ENCOUNTER → 2022-01-26 | Outpatient (CLI) | payer MEDICARE, OTHER ==
[2022-01-26 12:02] LABS: CALCIUM LEVEL 9.4 MG/DL (8.8-10.2); GLOMERULAR FILTRATION RATE 57.4 (>39); POTASSIUM SERUM 4.2 MEQ/L (3.5-5.1)
== END ==
LOC: M WUC 08:32
PROVIDERS: ATTEND Internal Medicine Endocrinology, Diabetes & Metabolism
DX: M81.0 Age-related osteoporosis without current pathological fracture (principal)

== ENCOUNTER → 2022-01-26 | Outpatient (CLI) | payer MEDICARE, OTHER | LOC: M WUC 08:35 | PROVIDERS: ATTEND Student in an Organized Health Care Education/Training Program | DX: R06.02 Shortness of breath (principal) ==

== ENCOUNTER → 2022-01-27 | Outpatient (REF) | payer MEDICARE, OTHER ==
[2022-01-27 12:42] LABS: APPEARANCE, URINE HAZY (CLEAR); BACTERIA, URINE AUTO 1+ (NEGATIVE); BILIRUBIN, URINE AUTO NEGATIVE (NEGATIVE); BLOOD, URINE BLOOD NEGATIVE (NEGATIVE); COLOR, URINE YELLOW (YELLOW); GLUCOSE, URINE (UA) AUTO NEGATIVE (NEGATIVE); KETONE, URINE AUTO NEGATIVE (NEGATIVE); LEUKOCYTE ESTERASE, URINE AUTO 2+ (NEGATIVE); NITRITE, URINE AUTO NEGATIVE (NEGATIVE); PROTEIN, URINE AUTO NEGATIVE (NEGATIVE); RBC, URINE AUTO 0 /HPF (0-3); SPECIFIC GRAVITY URINE AUTO 1.014 (1.002-1.035); SQUAMOUS EPITHELIAL CELL UR AU 1 /HPF (0-6); UROBILINOGEN, URINE AUTO 0.2 mg/dL (0.0-2.0); WBC, URINE AUTO 22 /HPF (0-3)
== END ==
LOC: M LAB REF 12:20
PROVIDERS: ATTEND Obstetrics & Gynecology
DX: R31.9 Hematuria, unspecified (principal); N32.81 Overactive bladder

== ENCOUNTER → 2022-02-04 | Outpatient (REF) | payer MEDICARE, OTHER | LOC: M LAB REF 16:56 | PROVIDERS: ATTEND Family Medicine | DX: R30.0 Dysuria (principal) ==

== ENCOUNTER → 2022-02-11 | Outpatient (CLI) | payer MEDICARE, OTHER ==
[2022-02-11 15:44] LABS: BASO # 0.1 10^3/uL (0.0-0.2); EOS # 0.2 10^3/uL (0.0-0.5); EOS % 4.2 % (0.0-3.0); HEMATOCRIT 41.3 % (36.0-47.0); HEMOGLOBIN 13.1 g/dl (12.0-15.5); LYMPH # 1.4 10^3/uL (1.5-5.0); LYMPH % 25.2 % (24.0-44.0); MEAN CORPUSCULAR HEMOGLOBIN 29.8 pg (27.0-33.0); MEAN CORPUSCULAR HGB CONC 31.7 g/dl (32.0-36.5); MEAN CORPUSCULAR VOLUME 93.9 fl (80.0-96.0); MONO # 0.6 10^3/uL (0.0-0.8); MONO % 9.8 % (2.0-8.0); NEUTROPHILS # 3.4 10^3/uL (1.5-8.5); NEUTROPHILS % 59.6 % (36.0-66.0); PLATELET COUNT, AUTOMATED 259 10^3/uL (150-450); WHITE BLOOD COUNT 5.7 10^3/uL (4.0-10.0)
[2022-02-11 18:20] LABS: ALBUMIN 3.8 GM/DL (3.2-5.2); BILIRUBIN,TOTAL 0.8 MG/DL (0.2-1.0); CALCIUM LEVEL 9.1 MG/DL (8.8-10.2); CHOLESTEROL RISK RATIO 2.521 (<5); CREATININE FOR GFR 1.07 MG/DL (0.55-1.30); FREE T4 0.88 NG/DL (0.76-1.46); GLOMERULAR FILTRATION RATE 53.1 (>39); POTASSIUM SERUM 4.1 MEQ/L (3.5-5.1); THYROID STIMULATING HORMONE 1.94 uIU/ML (0.358-3.740); TOTAL PROTEIN 7.1 GM/DL (6.4-8.2)
== END ==
LOC: M WUC 13:15
PROVIDERS: ATTEND Family Medicine
DX: I10 Essential (primary) hypertension (principal); E05.90 Thyrotoxicosis, unspecified without thyrotoxic crisis or storm

== ENCOUNTER → 2022-02-19 | Outpatient (REF) | payer MEDICARE, OTHER | LOC: M LAB REF 12:37 | PROVIDERS: ATTEND Internal Medicine Gastroenterology | DX: R14.3 Flatulence (principal) ==

== ENCOUNTER → 2022-02-24 | Outpatient (CLI) | payer MEDICARE, OTHER | LOC: M SLEEP 07:37 | PROVIDERS: ATTEND Psychiatry & Neurology Neurology | DX: G40.89 Other seizures (principal) ==

== ENCOUNTER → 2022-03-05 | Outpatient (REF) | payer MEDICARE, OTHER ==
[2022-03-05 18:34] LABS: BACTERIA, URINE LARGE AMOUNT; HYALINE CAST, URINE NONE SEEN /lpf (0-1); RBC, URINE 0-1 /hpf (0-3); SQUAMOUS EPITHELIAL CELL URINE SMALL AMOUNT /hpf (SMALL AMT); TRANSITIONAL EPI CELLS, URINE SMALL AMOUNT /hpf; WBC, URINE 0-1 /hpf (0-3)
== END ==
LOC: M LAB REF 16:45
PROVIDERS: ATTEND Internal Medicine Nephrology
DX: N32.81 Overactive bladder (principal)

== ENCOUNTER → 2022-04-07 | Outpatient (REF) | payer MEDICARE, OTHER ==
[~2022-04-07] MED LIST changes: +BENZ200C70 PO
[2022-04-07 18:22] LABS: APPEARANCE, URINE MANUAL HAZY (CLEAR); COLOR, URINE MANUAL YELLOW (YELLOW)
[2022-04-07 18:24] LABS: BILIRUBIN, URINE MANUAL NEGATIVE (NEGATIVE); BLOOD URINE MANUAL POSITIVE (NEGATIVE); GLUCOSE, URINE (UA) MANUAL NEGATIVE (NEGATIVE); KETONE, URINE MANUAL NEGATIVE (NEGATIVE); LEUKOCYTE ESTERASE, URINE MAN POSITIVE (NEGATIVE); NITRITE, URINE MANUAL POSITIVE (NEGATIVE); PROTEIN, URINE MANUAL NEGATIVE (NEGATIVE); SPECIFIC GRAVITY,URINE MANUAL 1.015 (1.002-1.035); UROBILINOGEN, URINE MANUAL NORMAL (NORMAL)
[2022-04-07 18:52] LABS: BACTERIA, URINE LARGE AMOUNT; HYALINE CAST, URINE NONE SEEN /lpf (0-1); RBC, URINE 0-1 /hpf (0-3); SQUAMOUS EPITHELIAL CELL URINE SMALL AMOUNT /hpf (SMALL AMT); WBC, URINE 15-20 /hpf (0-3)
== END ==
LOC: M LAB REF 16:48
PROVIDERS: ATTEND Physician Assistant
DX: R30.0 Dysuria (principal)

== ENCOUNTER 2022-04-13 20:41 | Emergency (ER) | payer MEDICARE, OTHER ==
[~2022-04-13] VITALS: Ht 162.6 cm; Wt 69.8 kg
[~2022-04-13 20:41] MED LIST changes: -BENZ200C70 PO
[2022-04-13 21:25] LABS: BASO % 0.6 % (0.0-1.0); EOS # 0.1 10^3/uL (0.0-0.5); EOS % 2.7 % (0.0-3.0); HEMATOCRIT 41.2 % (36.0-47.0); HEMOGLOBIN 13.1 g/dl (12.0-15.5); LYMPH # 1.3 10^3/uL (1.5-5.0); LYMPH % 27.2 % (24.0-44.0); MEAN CORPUSCULAR HEMOGLOBIN 29.2 pg (27.0-33.0); MEAN CORPUSCULAR HGB CONC 31.8 g/dl (32.0-36.5); MONO # 0.6 10^3/uL (0.0-0.8); MONO % 11.6 % (2.0-8.0); NEUTROPHILS # 2.7 10^3/uL (1.5-8.5); NEUTROPHILS % 57.7 % (36.0-66.0); PLATELET COUNT, AUTOMATED 218 10^3/uL (150-450); RED BLOOD COUNT 4.48 10^6/uL (4.00-5.40); WHITE BLOOD COUNT 4.8 10^3/uL (4.0-10.0)
[2022-04-13 21:51] LABS: INR 1.96; PROTHROMBIN TIME 22.7 SECONDS (12.7-14.5)
[2022-04-13 21:52] LABS: PARTIAL THROMBOPLASTIN TIME 43.1 SECONDS (25.9-37.0)
[2022-04-13] MEDS ORDERED: VALPROATE SOD INJ 500 MG in D5W 50 ML IV ONE (22:00)
[2022-04-13] MEDS ORDERED: NS 1,000 ML IV ONE (22:05)
[2022-04-13 22:09] LABS: CK-MB VALUE MASS 1.5 NG/ML (<3.6); MB/CK RELATIVE INDEX 1.28 (< OR =4)
[2022-04-13 22:12] LABS: ALBUMIN 3.9 GM/DL (3.2-5.2); ALT/SGPT 70 U/L (12-78); BILIRUBIN,DIRECT 0.1 MG/DL (0.0-0.2); BILIRUBIN,TOTAL 0.5 MG/DL (0.2-1.0); BLOOD UREA NITROGEN 21 MG/DL (7-18); CALCIUM LEVEL 9.1 MG/DL (8.8-10.2); CARBON DIOXIDE LEVEL 25 MEQ/L (21-32); CHLORIDE LEVEL 106 MEQ/L (98-107); GLOMERULAR FILTRATION RATE > 60.0 (>39); GLUCOSE, FASTING 102 MG/DL (70-100); NT-PRO BNP 159 PG/ML (<450); POTASSIUM SERUM 4.4 MEQ/L (3.5-5.1); SODIUM LEVEL 138 MEQ/L (136-145); TOTAL PROTEIN 7.5 GM/DL (6.4-8.2)
[2022-04-13] MEDS ORDERED: BENZONATATE 100MG CAPSULE PO ONE (23:35)
[2022-04-13] MEDS ORDERED: BENZ200C70 PO (23:38)
[2022-04-13 23:45] VITALS: BP 149/60
== END 2022-04-14 00:19 | disposition home or self-care (01) ==
LOC: M ED 20:41
DX: U07.1 COVID-19 (principal); I10 Essential (primary) hypertension; Z88.1 Allergy status to other antibiotic agents; Z88.2 Allergy status to sulfonamides; Z88.8 Allergy status to other drugs, medicaments and biological substances; Z88.5 Allergy status to narcotic agent; Z79.82 Long term (current) use of aspirin; Z79.899 Other long term (current) drug therapy; Z79.01 Long term (current) use of a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

== ENCOUNTER → 2022-04-24 | Outpatient (CLI) | payer MEDICARE, OTHER ==
[~2022-04-24] MED LIST changes: +BENZ200C70 PO
[2022-04-24 12:24] LABS: BASO # 0.1 10^3/uL (0.0-0.2); BASO % 1.2 % (0.0-1.0); EOS # 0.2 10^3/uL (0.0-0.5); EOS % 3.1 % (0.0-3.0); HEMATOCRIT 40.9 % (36.0-47.0); HEMOGLOBIN 12.9 g/dl (12.0-15.5); LYMPH # 1.4 10^3/uL (1.5-5.0); LYMPH % 20.2 % (24.0-44.0); MEAN CORPUSCULAR HEMOGLOBIN 29.5 pg (27.0-33.0); MEAN CORPUSCULAR HGB CONC 31.5 g/dl (32.0-36.5); MEAN CORPUSCULAR VOLUME 93.4 fl (80.0-96.0); MONO # 0.6 10^3/uL (0.0-0.8); MONO % 9.1 % (2.0-8.0); NEUTROPHILS # 4.4 10^3/uL (1.5-8.5); PLATELET COUNT, AUTOMATED 276 10^3/uL (150-450); RED BLOOD COUNT 4.38 10^6/uL (4.00-5.40); WHITE BLOOD COUNT 6.7 10^3/uL (4.0-10.0)
[2022-04-24 13:08] LABS: ALBUMIN 3.8 GM/DL (3.2-5.2); ALT/SGPT 25 U/L (12-78); BILIRUBIN,TOTAL 0.9 MG/DL (0.2-1.0); BLOOD UREA NITROGEN 15 MG/DL (7-18); CALCIUM LEVEL 8.9 MG/DL (8.8-10.2); CARBON DIOXIDE LEVEL 30 MEQ/L (21-32); CHLORIDE LEVEL 107 MEQ/L (98-107); CREATININE FOR GFR 0.87 MG/DL (0.55-1.30); FREE T4 0.86 NG/DL (0.76-1.46); GLOMERULAR FILTRATION RATE > 60.0 (>39); GLUCOSE, FASTING 96 MG/DL (70-100); POTASSIUM SERUM 4.4 MEQ/L (3.5-5.1); SODIUM LEVEL 140 MEQ/L (136-145); TOTAL PROTEIN 7.3 GM/DL (6.4-8.2)
== END ==
LOC: M WUC 08:58
PROVIDERS: ATTEND Student in an Organized Health Care Education/Training Program
DX: I10 Essential (primary) hypertension (principal); R68.89 Other general symptoms and signs

== ENCOUNTER → 2022-05-05 | Outpatient (CLI) | payer MEDICARE, OTHER ==
[2022-05-05 19:21] LABS: C REACTIVE PROTEIN QUANTITATIV < 0.30 MG/DL (0.00-0.30); RHEUMATOID FACTOR QUANT < 10.0 IU/ML (<15.0); URIC ACID 5.7 MG/DL (2.6-6.0)
[2022-05-08 00:11] LABS: ANA (HEP2) Negative (.); CYCLIC CITRULLINATED PEPTIDE 6 units (0-19); TISSUE TRANSGLUTAMINASE IgA <2 U/mL (0-3); TISSUE TRANSGLUTAMINASE IgG 2 U/mL (0-5); UNITSIGA FOR GLIADIN IGA 2 units (0-19); UNITSIGG FOR GLIADIN IGG 1 units (0-19)
== END ==
LOC: M WUC 13:20
PROVIDERS: ATTEND Family Medicine
DX: M25.50 Pain in unspecified joint (principal)

== ENCOUNTER → 2022-05-21 | Outpatient (REF) | payer MEDICARE, OTHER | LOC: M SFHCLERA 11:16 | PROVIDERS: ATTEND Student in an Organized Health Care Education/Training Program | DX: J00 Acute nasopharyngitis [common cold] (principal) ==

== ENCOUNTER → 2022-05-26 | Outpatient (CLI) | payer MEDICARE, OTHER | LOC: M CARPUL 10:15 | PROVIDERS: ATTEND Nurse Practitioner Family | DX: R06.02 Shortness of breath (principal) ==

== ENCOUNTER → 2022-06-05 | Outpatient (CLI) | payer MEDICARE, OTHER | LOC: M SLEEP 20:00 | PROVIDERS: ATTEND Nurse Practitioner Family | DX: G47.33 Obstructive sleep apnea (adult) (pediatric) (principal); R06.83 Snoring ==

== ENCOUNTER → 2022-06-11 | Outpatient (CLI) | payer MEDICARE, OTHER | LOC: M WUC 10:01 | PROVIDERS: ATTEND Internal Medicine Cardiovascular Disease | DX: R06.02 Shortness of breath (principal) ==

== ENCOUNTER → 2022-06-15 | Outpatient (CLI) | payer MEDICARE, OTHER | LOC: M RAD 12:02 | PROVIDERS: ATTEND Internal Medicine Cardiovascular Disease | DX: R06.02 Shortness of breath (principal) ==

== ENCOUNTER → 2022-07-06 | Outpatient (CLI) | payer MEDICARE, OTHER | LOC: M SLEEP 20:00 | PROVIDERS: ATTEND Nurse Practitioner Family | DX: G47.33 Obstructive sleep apnea (adult) (pediatric) (principal) ==

== ENCOUNTER → 2022-07-09 | Outpatient (CLI) | payer MEDICARE, OTHER | LOC: M WHC 05-14 08:44 | PROVIDERS: ATTEND Nurse Practitioner Family | DX: Z12.31 Encounter for screening mammogram for malignant neoplasm of breast (principal) ==

== ENCOUNTER → 2022-07-28 | Outpatient (CLI) | payer MEDICARE, OTHER | LOC: M WUC 10:50 | PROVIDERS: ATTEND Family Medicine | DX: M70.62 Trochanteric bursitis, left hip (principal); M25.562 Pain in left knee ==

== ENCOUNTER → 2022-08-06 | Outpatient (CLI) | payer MEDICARE, OTHER ==
[2022-08-06 16:37] LABS: BASO # 0.1 10^3/uL (0.0-0.2); BASO % 1.2 % (0.0-1.0); EOS # 0.2 10^3/uL (0.0-0.5); EOS % 3.5 % (0.0-3.0); HEMOGLOBIN 12.5 g/dl (12.0-15.5); LYMPH # 1.6 10^3/uL (1.5-5.0); LYMPH % 23.3 % (24.0-44.0); MEAN CORPUSCULAR HEMOGLOBIN 29.6 pg (27.0-33.0); MEAN CORPUSCULAR HGB CONC 31.3 g/dl (32.0-36.5); MEAN CORPUSCULAR VOLUME 94.8 fl (80.0-96.0); MONO # 0.6 10^3/uL (0.0-0.8); NEUTROPHILS # 4.2 10^3/uL (1.5-8.5); NEUTROPHILS % 62.5 % (36.0-66.0); PLATELET COUNT, AUTOMATED 271 10^3/uL (150-450); RED BLOOD COUNT 4.22 10^6/uL (4.00-5.40); WHITE BLOOD COUNT 6.7 10^3/uL (4.0-10.0)
[2022-08-06 17:03] LABS: C REACTIVE PROTEIN QUANTITATIV < 0.40 MG/DL (<1.0)
[2022-08-06 17:06] LABS: RHEUMATOID FACTOR QUANT 8.1 IU/ML (<14)
[2022-08-06 17:18] LABS: ERYTHROCYTE SEDIMENTATION RATE 36 mm/hr (0-30)
== END ==
LOC: M WUC 13:55
PROVIDERS: ATTEND Orthopaedic Surgery
DX: M70.62 Trochanteric bursitis, left hip (principal)

== ENCOUNTER → 2022-08-13 | Outpatient (CLI) | payer MEDICARE, OTHER ==
[2022-08-13 11:37] LABS: CALCIUM LEVEL 8.9 MG/DL (8.3-10.6)
[2022-08-13 11:43] LABS: THYROID STIMULATING HORMONE 2.632 uIU/ML (0.55-4.78)
[2022-08-13 14:37] LABS: TOTAL 25(OH) VITAMIN D 45.9 NG/ML (20.0-100.0)
== END ==
LOC: M WUC 08:58
PROVIDERS: ATTEND Internal Medicine Endocrinology, Diabetes & Metabolism
DX: E55.9 Vitamin D deficiency, unspecified (principal); E05.90 Thyrotoxicosis, unspecified without thyrotoxic crisis or storm

== ENCOUNTER → 2022-08-28 | Outpatient (CLI) | payer MEDICARE, OTHER ==
[2022-08-28 11:35] LABS: IMMUNOGLOBULIN A 205.7 MG/DL (40-350); IMMUNOGLOBULIN G 1195 MG/DL (650-1600); IMMUNOGLOBULIN M 119.6 MG/DL (50-300)
[2022-08-28 11:40] LABS: IMMUNOGLOBULIN E < 2.5 IU/ML (0-378)
[2022-09-01 19:07] LABS: IgG SERUM (part of Subclasses) 1230 mg/dL (586-1602); IgG Subclass 1 540 mg/dL (248-810); IgG Subclass 2 537 mg/dL (130-555); IgG Subclass 3 39 mg/dL (15-102); IgG Subclass 4 22 mg/dL (2-96)
== END ==
LOC: M WUC 09:06
PROVIDERS: ATTEND Internal Medicine Infectious Disease
DX: J06.9 Acute upper respiratory infection, unspecified (principal)

== ENCOUNTER → 2022-09-01 | Outpatient (REF) | payer MEDICARE, OTHER | LOC: M LAB REF 16:51 | PROVIDERS: ATTEND Physician Assistant | DX: N39.0 Urinary tract infection, site not specified (principal) ==

== ENCOUNTER → 2022-09-02 | Outpatient (CLI) | payer MEDICARE, OTHER ==
[2022-09-02 16:44] LABS: BASO # 0.1 10^3/uL (0.0-0.2); BASO % 0.9 % (0.0-1.0); EOS # 0.1 10^3/uL (0.0-0.5); HEMOGLOBIN 12.5 g/dl (12.0-15.5); LYMPH # 1.3 10^3/uL (1.5-5.0); LYMPH % 20.4 % (24.0-44.0); MEAN CORPUSCULAR HEMOGLOBIN 29.7 pg (27.0-33.0); MEAN CORPUSCULAR HGB CONC 31.3 g/dl (32.0-36.5); MONO # 0.5 10^3/uL (0.0-0.8); NEUTROPHILS # 4.5 10^3/uL (1.5-8.5); NEUTROPHILS % 69.4 % (36.0-66.0); PLATELET COUNT, AUTOMATED 253 10^3/uL (150-450); RED BLOOD COUNT 4.21 10^6/uL (4.00-5.40); WHITE BLOOD COUNT 6.5 10^3/uL (4.0-10.0)
[2022-09-02 17:12] LABS: ALBUMIN 3.8 G/DL (3.2-5.2); ALKALINE PHOSPHATASE 58 U/L (46-116); ALT/SGPT 20 U/L (7.0-40); AST/SGOT 23 U/L (<34); BILIRUBIN,DIRECT 0.3 MG/DL (<0.4); BILIRUBIN,TOTAL 0.9 MG/DL (0.3-1.2); BLOOD UREA NITROGEN 15 MG/DL (9-23); CALCIUM LEVEL 8.7 MG/DL (8.3-10.6); CARBON DIOXIDE LEVEL 27 MMOL/L (20-31); CHLORIDE LEVEL 106 MMOL/L (98-107); CREATININE FOR GFR 0.83 MG/DL (0.55-1.30); FERRITIN 121.4 NG/ML (7.3-270.7); GLOMERULAR FILTRATION RATE > 60.0 (>39); GLUCOSE, FASTING 92 MG/DL (74-106); IRON (FE) 55 UG/DL (50-170); MAGNESIUM LEVEL 1.7 MG/DL (1.8-2.4); PERCENT SATURATION 18.7 % (13.2-45.0); SODIUM LEVEL 140 MMOL/L (136-145); THYROID STIMULATING HORMONE 1.826 uIU/ML (0.55-4.78); TOTAL IRON BINDING CAPACITY 294 UG/DL (250-425); TOTAL PROTEIN 7.1 G/DL (5.7-8.2)
[2022-09-02 17:13] LABS: TOTAL 25(OH) VITAMIN D 39.2 NG/ML (20.0-100.0)
[2022-09-02 17:14] LABS: FOLATE 12.24 NG/ML (>5.4); FREE T4 1.02 NG/DL (0.89-1.76); VITAMIN B12 LEVEL 236 PG/ML (211-911)
[2022-09-04 23:07] LABS: ANA (HEP2) Positive (.)
== END ==
LOC: M WUC 11:34
PROVIDERS: ATTEND Physician Assistant
DX: R53.83 Other fatigue (principal)

== ENCOUNTER → 2022-09-22 | Outpatient (CLI) | payer MEDICARE, OTHER ==
[2022-09-22 13:16] LABS: URIC ACID 4.6 MG/DL (3.1-7.8)
[2022-09-22 13:17] LABS: C REACTIVE PROTEIN QUANTITATIV < 0.40 MG/DL (<1.0)
[2022-09-22 13:18] LABS: CPK CREATINE PHOSPHOKINASE 70 U/L (34-145); RHEUMATOID FACTOR QUANT 4.5 IU/ML (<14)
[2022-09-22 14:26] LABS: ALBUMIN 3.5 G/DL (3.2-5.2); ALKALINE PHOSPHATASE 59 U/L (46-116); ALT/SGPT 25 U/L (7.0-40); AST/SGOT 26 U/L (<34); BILIRUBIN,TOTAL 0.8 MG/DL (0.3-1.2); BLOOD UREA NITROGEN 21 MG/DL (9-23); CALCIUM LEVEL 8.7 MG/DL (8.3-10.6); CARBON DIOXIDE LEVEL 30 MMOL/L (20-31); CHLORIDE LEVEL 105 MMOL/L (98-107); GLUCOSE, FASTING 84 MG/DL (74-106); POTASSIUM SERUM 4.6 MMOL/L (3.5-5.1); SODIUM LEVEL 139 MMOL/L (136-145); TOTAL PROTEIN 6.7 G/DL (5.7-8.2)
[2022-09-22 19:56] LABS: CREATININE FOR GFR 0.82 MG/DL (0.55-1.30); GLOMERULAR FILTRATION RATE > 60.0 (>39)
[2022-09-24 08:33] LABS: DRVV SCREEN 54.4 SEC
[2022-09-24 08:42] LABS: PTT LUPUS TYPE ANTICOAG SCREEN 1.4 (0-1.2)
[2022-09-24 08:49] LABS: DRVV CONFIRM 49.1 SEC; LUPUS CONFIRM RATIO 1.4
[2022-09-29 17:09] LABS: ANA (HEP2) Positive (.); ANTI CENTROMERE ANTIBODY <0.2 AI (0.0-0.9); ANTI DS-DNA AB Negative (Negative); CYCLIC CITRULLINATED PEPTIDE < 1 units (0-19); HLA-B27 Negative (.); SSA SJOGRENS A <0.2 AI (0.0-0.9); SSB SJOGRENS B <0.2 AI (0.0-0.9)
== END ==
LOC: M WUC 10:17
PROVIDERS: ATTEND Physician Assistant
DX: R76.0 Raised antibody titer (principal)

== ENCOUNTER → 2022-09-29 | Outpatient (REF) | payer MEDICARE, OTHER | LOC: M LAB REF 17:00 | PROVIDERS: ATTEND Family Medicine | DX: N39.0 Urinary tract infection, site not specified (principal) ==

== ENCOUNTER → 2022-10-06 | Outpatient (REF) | payer MEDICARE, OTHER | LOC: M LAB REF 16:58 | PROVIDERS: ATTEND Family Medicine | DX: J06.9 Acute upper respiratory infection, unspecified (principal) ==

== ENCOUNTER → 2022-10-27 | Outpatient (CLI) | payer MEDICARE, OTHER | LOC: M WUC 14:10 | PROVIDERS: ATTEND Family Medicine | DX: R30.0 Dysuria (principal) ==

== ENCOUNTER → 2022-11-02 | Outpatient (CLI) | payer MEDICARE, OTHER | LOC: M PLAIMG 12:29 | PROVIDERS: ATTEND Specialist | DX: R10.11 Right upper quadrant pain (principal) ==

== ENCOUNTER → 2022-11-23 | Outpatient (REF) | payer MEDICARE, OTHER ==
[~2022-11-23] MED LIST changes: +ARTIDRO4 OU; +FLUT50SP17; -FLUTISP; -POLYOPD OU
== END ==
LOC: M LAB REF 17:04
PROVIDERS: ATTEND Physician Assistant
DX: N30.21 Other chronic cystitis with hematuria (principal)

== ENCOUNTER → 2022-12-07 | Outpatient (REF) | payer MEDICARE, OTHER ==
[2022-12-07 15:27] LABS: APPEARANCE, URINE HAZY (CLEAR); BACTERIA, URINE AUTO 2+ (NEGATIVE); BILIRUBIN, URINE AUTO NEGATIVE (NEGATIVE); BLOOD, URINE BLOOD 1+ (NEGATIVE); COLOR, URINE YELLOW (YELLOW); GLUCOSE, URINE (UA) AUTO NEGATIVE (NEGATIVE); KETONE, URINE AUTO NEGATIVE (NEGATIVE); LEUKOCYTE ESTERASE, URINE AUTO 2+ (NEGATIVE); NITRITE, URINE AUTO NEGATIVE (NEGATIVE); PROTEIN, URINE AUTO NEGATIVE (NEGATIVE); RBC, URINE AUTO 0 /HPF (0-3); SQUAMOUS EPITHELIAL CELL UR AU 3 /HPF (0-6); UROBILINOGEN, URINE AUTO 0.2 mg/dL (0.0-2.0); WBC, URINE AUTO TNTC /HPF (0-3)
== END ==
LOC: M SMT 12:45
PROVIDERS: ATTEND Specialist
DX: R30.0 Dysuria (principal)

== ENCOUNTER → 2023-01-14 | Outpatient (REF) | payer MEDICARE, OTHER ==
[2023-01-14 11:51] LABS: BASO # 0.1 10^3/uL (0.0-0.2); BASO % 1.1 % (0.0-1.0); EOS # 0.2 10^3/uL (0.0-0.5); EOS % 3.7 % (0.0-3.0); HEMATOCRIT 43.3 % (36.0-47.0); HEMOGLOBIN 13.6 g/dl (12.0-15.5); LYMPH # 1.6 10^3/uL (1.5-5.0); MEAN CORPUSCULAR HEMOGLOBIN 29.4 pg (27.0-33.0); MEAN CORPUSCULAR HGB CONC 31.4 g/dl (32.0-36.5); MEAN CORPUSCULAR VOLUME 93.5 fl (80.0-96.0); MONO # 0.5 10^3/uL (0.0-0.8); MONO % 7.9 % (2.0-8.0); NEUTROPHILS % 62.1 % (36.0-66.0); PLATELET COUNT, AUTOMATED 266 10^3/uL (150-450); RED BLOOD COUNT 4.63 10^6/uL (4.00-5.40); WHITE BLOOD COUNT 6.5 10^3/uL (4.0-10.0)
[2023-01-14 12:11] LABS: LDH LACTATE DEHYDROGENASE 202 U/L (120-246)
[2023-01-14 12:12] LABS: ALBUMIN 4.3 G/DL (3.2-5.2); ALKALINE PHOSPHATASE 70 U/L (46-116); ALT/SGPT 27 U/L (7.0-40); AST/SGOT 21 U/L (<34); BILIRUBIN,TOTAL 0.9 MG/DL (0.3-1.2); BLOOD UREA NITROGEN 18 MG/DL (9-23); CALCIUM LEVEL 8.7 MG/DL (8.3-10.6); CARBON DIOXIDE LEVEL 30 MMOL/L (20-31); CHLORIDE LEVEL 104 MMOL/L (98-107); CPK CREATINE PHOSPHOKINASE 106 U/L (34-145); CREATININE FOR GFR 0.93 MG/DL (0.55-1.30); GLOMERULAR FILTRATION RATE > 60.0 (>39); GLUCOSE, FASTING 95 MG/DL (74-106); POTASSIUM SERUM 4.1 MMOL/L (3.5-5.1); SODIUM LEVEL 138 MMOL/L (136-145); TOTAL PROTEIN 7.5 G/DL (5.7-8.2)
[2023-01-14 12:15] LABS: C REACTIVE PROTEIN QUANTITATIV < 0.40 MG/DL (<1.0); ERYTHROCYTE SEDIMENTATION RATE 60 mm/hr (0-30)
[2023-01-14 12:16] LABS: COMPLEMENT C3 163.9 MG/DL (90.0-170.0); COMPLEMENT C4 45.1 MG/DL (12-36)
[2023-01-14 12:18] LABS: APPEARANCE, URINE HAZY (CLEAR); BACTERIA, URINE AUTO 1+ (NEGATIVE); BILIRUBIN, URINE AUTO NEGATIVE (NEGATIVE); BLOOD, URINE BLOOD NEGATIVE (NEGATIVE); COLOR, URINE YELLOW (YELLOW); GLUCOSE, URINE (UA) AUTO NEGATIVE (NEGATIVE); KETONE, URINE AUTO NEGATIVE (NEGATIVE); LEUKOCYTE ESTERASE, URINE AUTO NEGATIVE (NEGATIVE); MUCUS, URINE SMALL (NEGATIVE); NITRITE, URINE AUTO NEGATIVE (NEGATIVE); PROTEIN, URINE AUTO NEGATIVE (NEGATIVE); RBC, URINE AUTO 1 /HPF (0-3); SPECIFIC GRAVITY URINE AUTO 1.015 (1.002-1.035); SQUAMOUS EPITHELIAL CELL UR AU 4 /HPF (0-6); UROBILINOGEN, URINE AUTO 0.2 mg/dL (0.0-2.0); WBC, URINE AUTO 3 /HPF (0-3)
[2023-01-14 12:35] LABS: TOTAL PROTEIN,RANDOM URINE 12.7 MG/DL (0.0-14.0)
[2023-01-14 12:39] LABS: CREATININE,RANDOM URINE 119.1 MG/DL
== END ==
LOC: M SFHCRHEU 10:06
PROVIDERS: ATTEND Internal Medicine Rheumatology
DX: R76.8 Other specified abnormal immunological findings in serum (principal); M25.50 Pain in unspecified joint; M35.00 Sjogren syndrome, unspecified; R05.3 Chronic cough

== ENCOUNTER → 2023-01-14 | Outpatient (CLI) | payer MEDICARE, OTHER ==
[~2023-01-14] MED LIST changes: +PROTPAK PO
== END ==
LOC: M WUC 13:10
PROVIDERS: ATTEND Internal Medicine Rheumatology
DX: R76.8 Other specified abnormal immunological findings in serum (principal); M25.50 Pain in unspecified joint; M35.00 Sjogren syndrome, unspecified; R05.3 Chronic cough

== ENCOUNTER 2023-01-26 07:45 | Day surgery (SDC) | payer MEDICARE, OTHER ==
[~2023-01-26] VITALS: Ht 162.6 cm; Wt 69.4 kg
[~2023-01-26 07:45] MED LIST changes: +CEFUROXIME 1MG/0.1ML INTRACAMERAL INJ As Ordered ONE; +LIDOCAINE 1% SDV 5ML VIAL As Ordered ONE; +MIDAZOLAM INJ 2MG/2ML VIAL As Ordered ONE; +PROPARACAINE 0.5% OPHTH SOL 15ML OS ONE; +fentaNYL 100 MCG/2 ML INJECTION As Ordered ONE
[2023-01-26] MEDS: CYCLOPENTOLATE 1% OPHTH SOLN 2ML BTL OS SCH ×2 (09:08→09:24)
[2023-01-26] MEDS: TROPICAMIDE 1% OPHTH SOLN 15ML OS SCH ×2 (09:08→09:24)
[2023-01-26] MEDS: PHENYLEPHRINE 2.5% OPHTH SOL 2ML OS SCH ×2 (09:08→09:24)
[2023-01-26] MEDS: TOBRAMYCIN 0.3% OPHTH SOLN 5ML OS SCH ×2 (09:09→09:24)
[2023-01-26] MEDS ORDERED: TRYPAN BLUE 0.06 % 2.25 ML OPHTH SYR (VISIONBLUE) As Ordered ONE (10:08)
[2023-01-26 10:40] VITALS: BP 145/67; TEMP 97.1; O2SAT 94
== END 2023-01-26 10:40 | disposition home or self-care (01) ==
LOC: M SDC 07:45
PROVIDERS: ATTEND Ophthalmology
DX: H25.12 Age-related nuclear cataract, left eye (principal); H40.1120 Primary open-angle glaucoma, left eye, stage unspecified; I10 Essential (primary) hypertension; I34.1 Nonrheumatic mitral (valve) prolapse; G43.909 Migraine, unspecified, not intractable, without status migrainosus; Z86.711 Personal history of pulmonary embolism; Z79.52 Long term (current) use of systemic steroids; Z79.01 Long term (current) use of a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; Z79.82 Long term (current) use of aspirin; Z79.899 Other long term (current) drug therapy; Z91.041 Radiographic dye allergy status; Z88.8 Allergy status to other drugs, medicaments and biological substances; Z88.5 Allergy status to narcotic agent; Z88.1 Allergy status to other antibiotic agents
CPT/HCPCS: 66183; 66984; C1783; J0697; J2250; J3010; V2632

== ENCOUNTER 2023-02-25 18:40 | Emergency (ER) | payer MEDICARE, OTHER ==
[~2023-02-25] VITALS: Ht 162.6 cm; Wt 68.2 kg
[~2023-02-25 18:40] MED LIST changes: -CEFUROXIME 1MG/0.1ML INTRACAMERAL INJ As Ordered ONE; -LIDOCAINE 1% SDV 5ML VIAL As Ordered ONE; -MIDAZOLAM INJ 2MG/2ML VIAL As Ordered ONE; -PROPARACAINE 0.5% OPHTH SOL 15ML OS ONE; -fentaNYL 100 MCG/2 ML INJECTION As Ordered ONE
[2023-02-25] MEDS ORDERED: SUCRALFATE 1 GM TAB PO ONE (19:45)
[2023-02-25] MEDS ORDERED: ASPIRIN 81MG CHEW TABLET PO ONE (19:45)
[2023-02-25] MEDS ORDERED: NITROGLYCERIN 0.4MG SUBL TABLET SL PRN (19:45)
[2023-02-25 20:24] VITALS: BP 152/65
[2023-02-25 20:34] LABS: BASO # 0.1 10^3/uL (0.0-0.2); BASO % 1.1 % (0.0-1.0); EOS # 0.2 10^3/uL (0.0-0.5); EOS % 3.5 % (0.0-3.0); HEMATOCRIT 38.5 % (36.0-47.0); HEMOGLOBIN 12.4 g/dl (12.0-15.5); LYMPH # 1.7 10^3/uL (1.5-5.0); LYMPH % 27.7 % (24.0-44.0); MEAN CORPUSCULAR HEMOGLOBIN 29.5 pg (27.0-33.0); MEAN CORPUSCULAR HGB CONC 32.2 g/dl (32.0-36.5); MEAN CORPUSCULAR VOLUME 91.4 fl (80.0-96.0); MONO # 0.6 10^3/uL (0.0-0.8); MONO % 10.3 % (2.0-8.0); NEUTROPHILS # 3.6 10^3/uL (1.5-8.5); NEUTROPHILS % 57.2 % (36.0-66.0); PLATELET COUNT, AUTOMATED 226 10^3/uL (150-450); RED BLOOD COUNT 4.21 10^6/uL (4.00-5.40); WHITE BLOOD COUNT 6.2 10^3/uL (4.0-10.0)
[2023-02-25 20:50] LABS: CK-MB VALUE MASS < 1.0 NG/ML (<3.6)
[2023-02-25 20:51] LABS: BLOOD UREA NITROGEN 17 MG/DL (9-23); CARBON DIOXIDE LEVEL 26 MMOL/L (20-31); CHLORIDE LEVEL 107 MMOL/L (98-107); CPK CREATINE PHOSPHOKINASE 73 U/L (34-145); CREATININE FOR GFR 1.07 MG/DL (0.55-1.30); GLOMERULAR FILTRATION RATE 52.9 (>39); GLUCOSE, FASTING 104 MG/DL (74-106); MB/CK RELATIVE INDEX 1.36 (< OR =4); POTASSIUM SERUM 4.2 MMOL/L (3.5-5.1); SODIUM LEVEL 140 MMOL/L (136-145)
[2023-02-25 22:30] LABS: CK-MB VALUE MASS < 1.0 NG/ML (<3.6)
[2023-02-25 22:37] LABS: CPK CREATINE PHOSPHOKINASE 69 U/L (34-145); MB/CK RELATIVE INDEX 1.44 (< OR =4)
[2023-02-25] MEDS ORDERED: HYOSCYAMINE SULFATE 0.125 MG SUBL TABLET PO ONE (22:40)
[2023-02-25] MEDS ORDERED: PREDOPD (22:45)
[2023-02-25 23:39] VITALS: BP 134/78; TEMP 98.8; O2SAT 98
== END 2023-02-25 23:41 | disposition home or self-care (01) ==
LOC: M ED 18:40
DX: K22.4 Dyskinesia of esophagus (principal); K29.00 Acute gastritis without bleeding; Z91.041 Radiographic dye allergy status; Z88.8 Allergy status to other drugs, medicaments and biological substances; Z88.2 Allergy status to sulfonamides; Z88.5 Allergy status to narcotic agent; Z79.01 Long term (current) use of a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; Z79.899 Other long term (current) drug therapy; Z79.82 Long term (current) use of aspirin; Z87.891 Personal history of nicotine dependence

== ENCOUNTER → 2023-03-30 | Outpatient (CLI) | payer MEDICARE, OTHER ==
[~2023-03-30] MED LIST changes: +PREDOPD
== END ==
LOC: M PLAIMG 06:52
PROVIDERS: ATTEND Family Medicine
DX: M54.12 Radiculopathy, cervical region (principal)

== ENCOUNTER → 2023-05-17 | Outpatient (REF) | payer MEDICARE, OTHER ==
[2023-05-18 12:03] LABS: APPEARANCE, URINE HAZY (CLEAR); BACTERIA, URINE AUTO 1+ (NEGATIVE); BILIRUBIN, URINE AUTO NEGATIVE (NEGATIVE); BLOOD, URINE BLOOD 1+ (NEGATIVE); COLOR, URINE YELLOW (YELLOW); GLUCOSE, URINE (UA) AUTO NEGATIVE (NEGATIVE); KETONE, URINE AUTO NEGATIVE (NEGATIVE); LEUKOCYTE ESTERASE, URINE AUTO 3+ (NEGATIVE); MUCUS, URINE SMALL (NEGATIVE); NITRITE, URINE AUTO NEGATIVE (NEGATIVE); PROTEIN, URINE AUTO NEGATIVE (NEGATIVE); RBC, URINE AUTO 4 /HPF (0-3); SPECIFIC GRAVITY URINE AUTO 1.013 (1.002-1.035); SQUAMOUS EPITHELIAL CELL UR AU 2 /HPF (0-6); UROBILINOGEN, URINE AUTO 0.2 mg/dL (0.0-2.0); WBC, URINE AUTO TNTC /HPF (0-3)
== END ==
LOC: M LAB REF 10:54
PROVIDERS: ATTEND Nurse Practitioner Family
DX: N39.0 Urinary tract infection, site not specified (principal); R39.15 Urgency of urination

== ENCOUNTER → 2023-05-24 | Outpatient (CLI) | payer MEDICARE, OTHER ==
[~2023-05-24] MED LIST changes: -FLUT50SP17; +FLUTISP
[2023-05-24 07:17] LABS: HEMATOCRIT 41.1 % (36.0-47.0); HEMOGLOBIN 13.4 g/dl (12.0-15.5); MEAN CORPUSCULAR HEMOGLOBIN 30.6 pg (27.0-33.0); MEAN CORPUSCULAR HGB CONC 32.6 g/dl (32.0-36.5); MEAN CORPUSCULAR VOLUME 93.8 fl (80.0-96.0); PLATELET COUNT, AUTOMATED 260 10^3/uL (150-450); RED BLOOD COUNT 4.38 10^6/uL (4.00-5.40); WHITE BLOOD COUNT 6.1 10^3/uL (4.0-10.0)
[2023-05-25 04:54] LABS: TOTAL 25(OH) VITAMIN D 32.9 NG/ML (20.0-100.0)
[2023-05-25 04:55] LABS: THYROID STIMULATING HORMONE 3.667 uIU/ML (0.55-4.78)
[2023-05-25 05:02] LABS: ALBUMIN 4.1 G/DL (3.2-5.2); BILIRUBIN,TOTAL 1.1 MG/DL (0.3-1.2); CHOLESTEROL RISK RATIO 2.59 (<5); CREATININE FOR GFR 0.97 MG/DL (0.55-1.30); GLOMERULAR FILTRATION RATE 59.3 (>39); HDL CHOLESTEROL 75.4 MG/DL (>40); LDL CHOLESTEROL 100.2 MG/DL (<100); NON-HDL-C 120.6 MG/DL; TOTAL PROTEIN 7.5 G/DL (5.7-8.2)
== END ==
LOC: M RAD 06:05
PROVIDERS: ATTEND Family Medicine
DX: D64.9 Anemia, unspecified (principal); R53.83 Other fatigue; E03.9 Hypothyroidism, unspecified; Z79.899 Other long term (current) drug therapy

== ENCOUNTER → 2023-06-15 | Outpatient (CLI) | payer MEDICARE, OTHER ==
[~2023-06-15] MED LIST changes: +FLUT50SP17; -FLUTISP
== END ==
LOC: M WUC 09:38
PROVIDERS: ATTEND Family Medicine
DX: J98.01 Acute bronchospasm (principal)

== ENCOUNTER → 2023-06-16 | Outpatient (CLI) | payer MEDICARE, OTHER ==
[2023-06-16 13:52] LABS: HEMATOCRIT 39.7 % (36.0-47.0); HEMOGLOBIN 12.7 g/dl (12.0-15.5); MEAN CORPUSCULAR HEMOGLOBIN 30.1 pg (27.0-33.0); MEAN CORPUSCULAR VOLUME 94.1 fl (80.0-96.0); PLATELET COUNT, AUTOMATED 247 10^3/uL (150-450); RED BLOOD COUNT 4.22 10^6/uL (4.00-5.40)
[2023-06-16 14:10] LABS: HEMOGLOBIN A1c 5.6 % (4.0-6.0)
[2023-06-16 14:18] LABS: ALBUMIN 3.7 G/DL (3.2-5.2); ALKALINE PHOSPHATASE 60 U/L (46-116); ALT/SGPT 32 U/L (7.0-40); AST/SGOT 27 U/L (<34); BILIRUBIN,TOTAL 0.5 MG/DL (0.3-1.2); BLOOD UREA NITROGEN 19 MG/DL (9-23); CALCIUM LEVEL 8.4 MG/DL (8.3-10.6); CARBON DIOXIDE LEVEL 27 MMOL/L (20-31); CHLORIDE LEVEL 103 MMOL/L (98-107); CHOLESTEROL LEVEL 185 MG/DL (<200); CHOLESTEROL RISK RATIO 2.68 (<5); CREATININE FOR GFR 0.94 MG/DL (0.55-1.30); GLOMERULAR FILTRATION RATE > 60.0 (>39); GLUCOSE, FASTING 105 MG/DL (74-106); HDL CHOLESTEROL 68.8 MG/DL (>40); LDL CHOLESTEROL 95.6 MG/DL (<100); NON-HDL-C 116.2 MG/DL; POTASSIUM SERUM 3.9 MMOL/L (3.5-5.1); SODIUM LEVEL 138 MMOL/L (136-145); TOTAL 25(OH) VITAMIN D 36.4 NG/ML (20.0-100.0); TOTAL PROTEIN 7.2 G/DL (5.7-8.2); TRIGLYCERIDES LEVEL 103 MG/DL (<150)
== END ==
LOC: M WUC 10:24
PROVIDERS: ATTEND Family Medicine
DX: D64.9 Anemia, unspecified (principal); R53.83 Other fatigue; E03.9 Hypothyroidism, unspecified

== ENCOUNTER → 2023-06-21 | Outpatient (REF) | payer MEDICARE, OTHER | LOC: M LAB REF 17:27 | PROVIDERS: ATTEND Family Medicine | DX: R30.0 Dysuria (principal) ==

== ENCOUNTER → 2023-08-03 | Outpatient (CLI) | payer MEDICARE, OTHER ==
[~2023-08-03] MED LIST changes: -FLUT50SP17; +FLUTISP
== END ==
LOC: M WHC 15:28
PROVIDERS: ATTEND Physician Assistant
DX: Z12.31 Encounter for screening mammogram for malignant neoplasm of breast (principal)

== ENCOUNTER → 2023-08-09 | Outpatient (CLI) | payer MEDICARE, OTHER ==
[~2023-08-09] MED LIST changes: +READI-CAT 2 As Ordered ONE
[2023-08-09 11:51] LABS: BASO # 0.1 10^3/uL (0.0-0.2); BASO % 1.2 % (0.0-1.0); EOS # 0.3 10^3/uL (0.0-0.5); HEMATOCRIT 38.7 % (36.0-47.0); HEMOGLOBIN 12.5 g/dl (12.0-15.5); LYMPH # 1.4 10^3/uL (1.5-5.0); LYMPH % 22.1 % (24.0-44.0); MEAN CORPUSCULAR HEMOGLOBIN 29.8 pg (27.0-33.0); MEAN CORPUSCULAR HGB CONC 32.3 g/dl (32.0-36.5); MEAN CORPUSCULAR VOLUME 92.4 fl (80.0-96.0); MONO # 0.6 10^3/uL (0.0-0.8); MONO % 8.7 % (2.0-8.0); NEUTROPHILS # 4.1 10^3/uL (1.5-8.5); NEUTROPHILS % 63.7 % (36.0-66.0); PLATELET COUNT, AUTOMATED 267 10^3/uL (150-450); RED BLOOD COUNT 4.19 10^6/uL (4.00-5.40); WHITE BLOOD COUNT 6.4 10^3/uL (4.0-10.0)
[2023-08-09 12:21] LABS: LIPASE 23 U/L (12-53)
[2023-08-09 12:22] LABS: AMYLASE 57 U/L (30-118)
[2023-08-09 12:23] LABS: ALBUMIN 3.8 G/DL (3.2-5.2); ALKALINE PHOSPHATASE 63 U/L (46-116); ALT/SGPT 19 U/L (7.0-40); AST/SGOT 20 U/L (<34); BILIRUBIN,TOTAL 0.7 MG/DL (0.3-1.2); BLOOD UREA NITROGEN 17 MG/DL (9-23); CALCIUM LEVEL 8.8 MG/DL (8.3-10.6); CARBON DIOXIDE LEVEL 30 MMOL/L (20-31); CHLORIDE LEVEL 106 MMOL/L (98-107); CREATININE FOR GFR 0.88 MG/DL (0.55-1.30); GLOMERULAR FILTRATION RATE > 60.0 (>39); GLUCOSE, FASTING 94 MG/DL (74-106); POTASSIUM SERUM 4.3 MMOL/L (3.5-5.1); SODIUM LEVEL 139 MMOL/L (136-145); TOTAL PROTEIN 6.8 G/DL (5.7-8.2)
== END ==
LOC: M RAD 10:16
PROVIDERS: ATTEND Family Medicine
DX: R39.14 Feeling of incomplete bladder emptying (principal); K59.00 Constipation, unspecified; R14.0 Abdominal distension (gaseous)

== ENCOUNTER → 2023-08-10 | Outpatient (CLI) | payer MEDICARE, OTHER ==
[~2023-08-10] MED LIST changes: -READI-CAT 2 As Ordered ONE
== END ==
LOC: M WUC 09:38
PROVIDERS: ATTEND Nurse Practitioner Family
DX: M25.512 Pain in left shoulder (principal)

== ENCOUNTER → 2023-08-13 | Outpatient (CLI) | payer MEDICARE, OTHER | LOC: M PLAIMG 07:52 | PROVIDERS: ATTEND Surgery Vascular Surgery | DX: I65.23 Occlusion and stenosis of bilateral carotid arteries (principal) ==

== ENCOUNTER → 2023-08-23 | Outpatient (CLI) | payer MEDICARE, OTHER ==
[2023-08-23 12:47] LABS: CALCIUM LEVEL 9.4 MG/DL (8.3-10.6)
[2023-08-23 12:52] LABS: THYROID STIMULATING HORMONE 3.439 uIU/ML (0.55-4.78)
[2023-08-23 12:53] LABS: TOTAL 25(OH) VITAMIN D 37.2 NG/ML (20.0-100.0)
== END ==
LOC: M WUC 09:15
PROVIDERS: ATTEND Internal Medicine Endocrinology, Diabetes & Metabolism
DX: M81.0 Age-related osteoporosis without current pathological fracture (principal); E55.9 Vitamin D deficiency, unspecified; E05.90 Thyrotoxicosis, unspecified without thyrotoxic crisis or storm

== ENCOUNTER → 2023-08-23 | Outpatient (CLI) | payer MEDICARE, OTHER ==
[2023-08-23 12:15] LABS: BASO # 0.1 10^3/uL (0.0-0.2); BASO % 1.5 % (0.0-1.0); EOS # 0.2 10^3/uL (0.0-0.5); EOS % 3.6 % (0.0-3.0); HEMATOCRIT 38.9 % (36.0-47.0); HEMOGLOBIN 12.5 g/dl (12.0-15.5); LYMPH # 1.2 10^3/uL (1.5-5.0); LYMPH % 21.1 % (24.0-44.0); MEAN CORPUSCULAR HEMOGLOBIN 29.9 pg (27.0-33.0); MEAN CORPUSCULAR HGB CONC 32.1 g/dl (32.0-36.5); MEAN CORPUSCULAR VOLUME 93.1 fl (80.0-96.0); MONO # 0.5 10^3/uL (0.0-0.8); MONO % 8.5 % (2.0-8.0); NEUTROPHILS # 3.8 10^3/uL (1.5-8.5); NEUTROPHILS % 65.1 % (36.0-66.0); PLATELET COUNT, AUTOMATED 240 10^3/uL (150-450); RED BLOOD COUNT 4.18 10^6/uL (4.00-5.40); WHITE BLOOD COUNT 5.9 10^3/uL (4.0-10.0)
[2023-08-23 12:22] LABS: ERYTHROCYTE SEDIMENTATION RATE 43 mm/hr (0-30)
[2023-08-23 12:43] LABS: HEMOGLOBIN A1c 5.8 % (4.0-6.0)
[2023-08-23 12:48] LABS: THYROID STIMULATING HORMONE 3.541 uIU/ML (0.55-4.78)
[2023-08-23 12:50] LABS: C REACTIVE PROTEIN QUANTITATIV < 0.40 MG/DL (<1.0)
[2023-08-23 12:51] LABS: FREE T4 0.86 NG/DL (0.89-1.76)
[2023-08-23 12:52] LABS: ALBUMIN 3.6 G/DL (3.2-5.2); ALKALINE PHOSPHATASE 60 U/L (46-116); ALT/SGPT 19 U/L (7.0-40); AST/SGOT 19 U/L (<34); BILIRUBIN,TOTAL 0.7 MG/DL (0.3-1.2); BLOOD UREA NITROGEN 22 MG/DL (9-23); CALCIUM LEVEL 9.3 MG/DL (8.3-10.6); CARBON DIOXIDE LEVEL 30 MMOL/L (20-31); CHLORIDE LEVEL 104 MMOL/L (98-107); CHOLESTEROL LEVEL 186 MG/DL (<200); CHOLESTEROL RISK RATIO 3.22 (<5); CREATININE FOR GFR 0.98 MG/DL (0.55-1.30); GLOMERULAR FILTRATION RATE 58.6 (>39); GLUCOSE, FASTING 93 MG/DL (74-106); HDL CHOLESTEROL 57.7 MG/DL (>40); LDL CHOLESTEROL 96.9 MG/DL (<100); NON-HDL-C 128.3 MG/DL; POTASSIUM SERUM 4.4 MMOL/L (3.5-5.1); SODIUM LEVEL 140 MMOL/L (136-145); TOTAL PROTEIN 6.6 G/DL (5.7-8.2); TRIGLYCERIDES LEVEL 157 MG/DL (<150)
== END ==
LOC: M WUC 09:18
PROVIDERS: ATTEND Physician Assistant
DX: E78.5 Hyperlipidemia, unspecified (principal); G62.9 Polyneuropathy, unspecified; I10 Essential (primary) hypertension

== ENCOUNTER → 2023-09-14 | Outpatient (CLI) | payer MEDICARE, OTHER | LOC: M WUC 08:51 | PROVIDERS: ATTEND Internal Medicine Gastroenterology | DX: K59.00 Constipation, unspecified (principal) ==

== ENCOUNTER → 2023-09-27 | Outpatient (REF) | payer MEDICARE, OTHER ==
[~2023-09-27] MED LIST changes: -ASPI-161 PO; +ASPI-615 PO
== END ==
LOC: M LABWUC 16:29
PROVIDERS: ATTEND Internal Medicine Cardiovascular Disease
DX: R07.9 Chest pain, unspecified (principal)

== ENCOUNTER → 2023-10-27 | Outpatient (CLI) | payer MEDICARE, OTHER ==
[~2023-10-27] MED LIST changes: +ACET300T48 PO; +GABA-284; +GABA600T4 PO; +MIRA3350 PO; +SIME80CH5 PO; +TOPR25TA PO
== END ==
LOC: M WUC 12:03
PROVIDERS: ATTEND Internal Medicine Gastroenterology
DX: R11.0 Nausea (principal); R14.3 Flatulence; R10.84 Generalized abdominal pain

== ENCOUNTER → 2023-11-15 | Outpatient (CLI) | payer MEDICARE, OTHER | LOC: M WUC 10:38 | PROVIDERS: ATTEND Family Medicine | DX: R10.84 Generalized abdominal pain (principal) ==

== ENCOUNTER → 2023-11-15 | Outpatient (CLI) | payer MEDICARE, OTHER | LOC: M WUC 10:35 | PROVIDERS: ATTEND Internal Medicine Cardiovascular Disease | DX: R07.9 Chest pain, unspecified (principal); R10.84 Generalized abdominal pain ==

== ENCOUNTER → 2023-12-29 | Outpatient (CLI) | payer MEDICARE, OTHER ==
[~2023-12-29] MED LIST changes: +FLUO-290 PO; -FLUO10CA18 PO
== END ==
LOC: M WUC 13:57
PROVIDERS: ATTEND Family Medicine
DX: J18.0 Bronchopneumonia, unspecified organism (principal)

== ENCOUNTER → 2024-02-17 | Outpatient (REF) | payer MEDICARE, OTHER | LOC: M LAB REF 17:12 | PROVIDERS: ATTEND Physician Assistant | DX: N39.0 Urinary tract infection, site not specified (principal) ==

== ENCOUNTER → 2024-02-24 | Outpatient (CLI) | payer MEDICARE, OTHER | LOC: M WUC 08:46 | PROVIDERS: ATTEND Nurse Practitioner Family | DX: M81.0 Age-related osteoporosis without current pathological fracture (principal) ==

== ENCOUNTER → 2024-05-03 | Outpatient (CLI) | payer MEDICARE, OTHER ==
[~2024-05-03] MED LIST changes: +GABA-1490 PO; -GABA600T4 PO
== END ==
LOC: M WHC 08:45
PROVIDERS: ATTEND Internal Medicine Endocrinology, Diabetes & Metabolism
DX: M81.0 Age-related osteoporosis without current pathological fracture (principal)

== ENCOUNTER → 2024-05-04 | Outpatient (CLI) | payer MEDICARE, OTHER ==
[2024-05-04 17:53] LABS: BASO # 0.1 10^3/uL (0.0-0.2); BASO % 1.5 % (0.0-1.0); EOS # 0.3 10^3/uL (0.0-0.5); EOS % 4.5 % (0.0-3.0); HEMATOCRIT 40.4 % (36.0-47.0); HEMOGLOBIN 12.6 g/dl (12.0-15.5); LYMPH # 1.5 10^3/uL (1.5-5.0); LYMPH % 21.8 % (24.0-44.0); MEAN CORPUSCULAR HEMOGLOBIN 29.3 pg (27.0-33.0); MEAN CORPUSCULAR HGB CONC 31.2 g/dl (32.0-36.5); MONO # 0.5 10^3/uL (0.0-0.8); MONO % 8.1 % (2.0-8.0); NEUTROPHILS # 4.2 10^3/uL (1.5-8.5); NEUTROPHILS % 63.6 % (36.0-66.0); PLATELET COUNT, AUTOMATED 245 10^3/uL (150-450); WHITE BLOOD COUNT 6.6 10^3/uL (4.0-10.0)
[2024-05-04 18:05] LABS: INR 1.39; PARTIAL THROMBOPLASTIN TIME 29.3 SECONDS (24.8-34.2); PROTHROMBIN TIME 16.6 SECONDS (12.5-14.5)
[2024-05-04 18:13] LABS: FREE T4 1.02 NG/DL (0.89-1.76)
[2024-05-04 18:14] LABS: THYROID STIMULATING HORMONE 2.712 uIU/ML (0.55-4.78)
[2024-05-04 18:16] LABS: C REACTIVE PROTEIN QUANTITATIV < 0.40 MG/DL (<1.0)
[2024-05-04 18:18] LABS: ALBUMIN 3.9 G/DL (3.2-5.2); ALKALINE PHOSPHATASE 73 U/L (46-116); ALT/SGPT 17 U/L (7.0-40); AST/SGOT 14 U/L (<34); BILIRUBIN,TOTAL 0.6 MG/DL (0.3-1.2); BLOOD UREA NITROGEN 14 MG/DL (9-23); CARBON DIOXIDE LEVEL 27 MMOL/L (20-31); CHLORIDE LEVEL 109 MMOL/L (98-107); CREATININE FOR GFR 0.87 MG/DL (0.55-1.30); GLOMERULAR FILTRATION RATE > 60.0 (>39); GLUCOSE, FASTING 96 MG/DL (74-106); POTASSIUM SERUM 4.1 MMOL/L (3.5-5.1); SODIUM LEVEL 142 MMOL/L (136-145); TOTAL PROTEIN 7.5 G/DL (5.7-8.2)
== END ==
LOC: M LAB 17:05
PROVIDERS: ATTEND Physician Assistant
DX: R42 Dizziness and giddiness (principal)

== ENCOUNTER → 2024-05-15 | Outpatient (CLI) | payer MEDICARE, OTHER ==
[2024-05-15 11:39] LABS: HEMATOCRIT 40.6 % (36.0-47.0); HEMOGLOBIN 12.8 g/dl (12.0-15.5); MEAN CORPUSCULAR HEMOGLOBIN 28.9 pg (27.0-33.0); MEAN CORPUSCULAR HGB CONC 31.5 g/dl (32.0-36.5); MEAN CORPUSCULAR VOLUME 91.6 fl (80.0-96.0); PLATELET COUNT, AUTOMATED 251 10^3/uL (150-450); RED BLOOD COUNT 4.43 10^6/uL (4.00-5.40); WHITE BLOOD COUNT 5.1 10^3/uL (4.0-10.0)
[2024-05-15 12:05] LABS: ALBUMIN 3.6 G/DL (3.2-5.2); ALKALINE PHOSPHATASE 71 U/L (46-116); ALT/SGPT 16 U/L (7.0-40); AST/SGOT 15 U/L (<34); BILIRUBIN,TOTAL 0.8 MG/DL (0.3-1.2); BLOOD UREA NITROGEN 15 MG/DL (9-23); CALCIUM LEVEL 9.3 MG/DL (8.3-10.6); CARBON DIOXIDE LEVEL 29 MMOL/L (20-31); CHLORIDE LEVEL 108 MMOL/L (98-107); CHOLESTEROL LEVEL 213 MG/DL (<200); CHOLESTEROL RISK RATIO 3.45 (<5); CREATININE FOR GFR 0.89 MG/DL (0.55-1.30); GLOMERULAR FILTRATION RATE > 60.0 (>39); GLUCOSE, FASTING 96 MG/DL (74-106); HDL CHOLESTEROL 61.6 MG/DL (>40); LDL CHOLESTEROL 122.2 MG/DL (<100); NON-HDL-C 151.4 MG/DL; POTASSIUM SERUM 4.8 MMOL/L (3.5-5.1); SODIUM LEVEL 140 MMOL/L (136-145); TRIGLYCERIDES LEVEL 146 MG/DL (<150)
[2024-05-15 12:06] LABS: THYROID STIMULATING HORMONE 3.132 uIU/ML (0.55-4.78)
[2024-05-15 12:07] LABS: TOTAL 25(OH) VITAMIN D 30.2 NG/ML (20.0-100.0)
[2024-05-15 12:48] LABS: HEMOGLOBIN A1c 5.6 % (4.0-6.0)
== END ==
LOC: M WUC 08:28
PROVIDERS: ATTEND Family Medicine
DX: I10 Essential (primary) hypertension (principal); R53.83 Other fatigue

== ENCOUNTER → 2024-06-09 | Outpatient (CLI) | payer MEDICARE, OTHER | LOC: M WUC 09:15 | PROVIDERS: ATTEND Physician Assistant | DX: M79.605 Pain in left leg (principal) ==

== ENCOUNTER → 2024-06-14 | Outpatient (CLI) | payer MEDICARE, OTHER ==
[2024-06-14 11:39] LABS: BASO # 0.1 10^3/uL (0.0-0.2); BASO % 0.9 % (0.0-1.0); EOS # 0.1 10^3/uL (0.0-0.5); EOS % 1.1 % (0.0-3.0); HEMATOCRIT 37.8 % (36.0-47.0); HEMOGLOBIN 12.1 g/dl (12.0-15.5); LYMPH # 1.2 10^3/uL (1.5-5.0); LYMPH % 15.1 % (24.0-44.0); MEAN CORPUSCULAR HEMOGLOBIN 29.3 pg (27.0-33.0); MEAN CORPUSCULAR VOLUME 91.5 fl (80.0-96.0); MONO # 0.5 10^3/uL (0.0-0.8); MONO % 6.6 % (2.0-8.0); NEUTROPHILS # 6.1 10^3/uL (1.5-8.5); NEUTROPHILS % 76.1 % (36.0-66.0); PLATELET COUNT, AUTOMATED 277 10^3/uL (150-450); RED BLOOD COUNT 4.13 10^6/uL (4.00-5.40)
[2024-06-14 11:46] LABS: ERYTHROCYTE SEDIMENTATION RATE 53 mm/hr (0-30)
[2024-06-14 12:09] LABS: URIC ACID 5.9 MG/DL (3.1-7.8)
[2024-06-14 12:10] LABS: C REACTIVE PROTEIN QUANTITATIV 0.5 MG/DL (<1.0)
[2024-06-14 12:12] LABS: RHEUMATOID FACTOR QUANT 8.5 IU/ML (<14)
[2024-06-15 15:57] LABS: ANA SCREEN, IFA NEGATIVE (NEGATIVE)
[2024-06-16 01:42] LABS: CYCLIC CITRULLINATED PEPTIDE < 16 UNITS (<20)
== END ==
LOC: M WUC 08:51
PROVIDERS: ATTEND Orthopaedic Surgery
DX: M25.562 Pain in left knee (principal)

== ENCOUNTER → 2024-06-27 | Outpatient (REF) | payer MEDICARE, OTHER | LOC: M LAB REF 16:56 | PROVIDERS: ATTEND Physician Assistant | DX: N30.21 Other chronic cystitis with hematuria (principal) ==

== ENCOUNTER → 2024-07-19 | Outpatient (CLI) | payer MEDICARE, OTHER ==
[2024-07-19 16:59] LABS: ALBUMIN 3.6 G/DL (3.2-5.2); ALKALINE PHOSPHATASE 62 U/L (35-104); ALT/SGPT 21 U/L (7.0-40); AST/SGOT 21 U/L (<34); BILIRUBIN,TOTAL 0.6 MG/DL (0.3-1.2); BLOOD UREA NITROGEN 26 MG/DL (9-23); CALCIUM LEVEL 9.3 MG/DL (8.3-10.6); CARBON DIOXIDE LEVEL 32 MMOL/L (20-31); CHLORIDE LEVEL 102 MMOL/L (98-107); GLOMERULAR FILTRATION RATE > 60.0 (>39); GLUCOSE, FASTING 89 MG/DL (74-106); POTASSIUM SERUM 4.2 MMOL/L (3.5-5.1); SODIUM LEVEL 139 MMOL/L (136-145); TOTAL PROTEIN 7.3 G/DL (5.7-8.2)
== END ==
LOC: M WUC 10:54
PROVIDERS: ATTEND Physician Assistant
DX: R70.0 Elevated erythrocyte sedimentation rate (principal)

== ENCOUNTER → 2024-08-11 | Outpatient (CLI) | payer MEDICARE, OTHER ==
[2024-08-11 13:54] LABS: HEMATOCRIT 41.2 % (36.0-47.0); HEMOGLOBIN 13.2 g/dl (12.0-15.5); MEAN CORPUSCULAR HEMOGLOBIN 29.3 pg (27.0-33.0); MEAN CORPUSCULAR VOLUME 91.4 fl (80.0-96.0); PLATELET COUNT, AUTOMATED 275 10^3/uL (150-450); RED BLOOD COUNT 4.51 10^6/uL (4.00-5.40); WHITE BLOOD COUNT 5.2 10^3/uL (4.0-10.0)
[2024-08-11 14:15] LABS: HEMOGLOBIN A1c 5.9 % (4.0-6.0)
[2024-08-11 14:22] LABS: ALBUMIN 3.6 G/DL (3.2-5.2); BILIRUBIN,TOTAL 0.8 MG/DL (0.3-1.2); CALCIUM LEVEL 9.2 MG/DL (8.3-10.6); CHOLESTEROL RISK RATIO 2.78 (<5); CREATININE FOR GFR 0.99 MG/DL (0.55-1.30); GLOMERULAR FILTRATION RATE 57.8 (>39); HDL CHOLESTEROL 78.3 MG/DL (>40); LDL CHOLESTEROL 114.3 MG/DL (<100); NON-HDL-C 139.7 MG/DL; POTASSIUM SERUM 4.3 MMOL/L (3.5-5.1); TOTAL PROTEIN 7.2 G/DL (5.7-8.2)
[2024-08-11 14:23] LABS: THYROID STIMULATING HORMONE 2.433 uIU/ML (0.55-4.78)
[2024-08-11 14:24] LABS: TOTAL 25(OH) VITAMIN D 31.2 NG/ML (20.0-100.0)
== END ==
LOC: M WUC 09:02
PROVIDERS: ATTEND Family Medicine
DX: D64.9 Anemia, unspecified (principal); E03.9 Hypothyroidism, unspecified; R53.83 Other fatigue

== ENCOUNTER → 2024-08-23 | Outpatient (REF) | payer MEDICARE, OTHER ==
[2024-08-23 18:53] LABS: APPEARANCE, URINE HAZY (CLEAR); BACTERIA, URINE AUTO 1+ (NEGATIVE); BILIRUBIN, URINE AUTO NEGATIVE (NEGATIVE); BLOOD, URINE BLOOD 1+ (NEGATIVE); COLOR, URINE YELLOW (YELLOW); GLUCOSE, URINE (UA) AUTO NEGATIVE (NEGATIVE); KETONE, URINE AUTO NEGATIVE (NEGATIVE); LEUKOCYTE ESTERASE, URINE AUTO 1+ (NEGATIVE); MUCUS, URINE SMALL (NEGATIVE); NITRITE, URINE AUTO POSITIVE (NEGATIVE); PROTEIN, URINE AUTO NEGATIVE (NEGATIVE); RBC, URINE AUTO 5 /HPF (0-3); SPECIFIC GRAVITY URINE AUTO 1.006 (1.002-1.035); SQUAMOUS EPITHELIAL CELL UR AU 1 /HPF (0-6); UROBILINOGEN, URINE AUTO 0.2 mg/dL (0.0-2.0); WBC, URINE AUTO 29 /HPF (0-3)
== END ==
LOC: M SMT 17:17
PROVIDERS: ATTEND Specialist
DX: N39.0 Urinary tract infection, site not specified (principal)

== ENCOUNTER → 2024-08-24 | Outpatient (CLI) | payer MEDICARE, OTHER | LOC: M WHC 11:05 | PROVIDERS: ATTEND Physician Assistant | DX: R09.89 Other specified symptoms and signs involving the circulatory and respiratory systems (principal) ==

== ENCOUNTER → 2024-09-05 | Outpatient (CLI) | payer MEDICARE, OTHER ==
[2024-09-05 12:38] LABS: THYROID STIMULATING HORMONE 2.598 uIU/ML (0.55-4.78); TOTAL 25(OH) VITAMIN D 42.4 NG/ML (20.0-100.0)
[2024-09-05 12:39] LABS: FREE T4 1.06 NG/DL (0.89-1.76)
== END ==
LOC: M WUC 10:13
PROVIDERS: ATTEND Nurse Practitioner Family
DX: E55.9 Vitamin D deficiency, unspecified (principal); E05.90 Thyrotoxicosis, unspecified without thyrotoxic crisis or storm; M25.551 Pain in right hip; M16.11 Unilateral primary osteoarthritis, right hip

== ENCOUNTER → 2024-09-05 | Outpatient (CLI) | payer MEDICARE, OTHER | LOC: M WUC 10:10 | PROVIDERS: ATTEND Physician Assistant | DX: M25.551 Pain in right hip (principal); M16.11 Unilateral primary osteoarthritis, right hip ==

== ENCOUNTER → 2024-09-14 | Outpatient (CLI) | payer MEDICARE, OTHER | LOC: M WHC 09:33 | PROVIDERS: ATTEND Family Medicine | DX: Z12.31 Encounter for screening mammogram for malignant neoplasm of breast (principal) ==

== ENCOUNTER → 2024-09-22 | Outpatient (CLI) | payer MEDICARE, OTHER | LOC: M WUC 10:33 | PROVIDERS: ATTEND Family Medicine | DX: J98.09 Other diseases of bronchus, not elsewhere classified (principal) ==

== ENCOUNTER → 2024-09-26 | Outpatient (CLI) | payer MEDICARE, OTHER ==
[2024-09-26 11:12] LABS: HEMATOCRIT 40.5 % (36.0-47.0); HEMOGLOBIN 12.9 g/dl (12.0-15.5); MEAN CORPUSCULAR HEMOGLOBIN 29.9 pg (27.0-33.0); MEAN CORPUSCULAR HGB CONC 31.9 g/dl (32.0-36.5); MEAN CORPUSCULAR VOLUME 93.8 fl (80.0-96.0); PLATELET COUNT, AUTOMATED 242 10^3/uL (150-450); RED BLOOD COUNT 4.32 10^6/uL (4.00-5.40); WHITE BLOOD COUNT 6.3 10^3/uL (4.0-10.0)
[2024-09-26 11:42] LABS: LIPASE 24 U/L (12-53)
[2024-09-26 11:44] LABS: ALBUMIN 3.7 G/DL (3.2-5.2); ALKALINE PHOSPHATASE 68 U/L (35-104); ALT/SGPT 16 U/L (7.0-40); AST/SGOT 19 U/L (<34); BLOOD UREA NITROGEN 19 MG/DL (9-23); C REACTIVE PROTEIN QUANTITATIV < 0.50 MG/DL (<1.0); CALCIUM LEVEL 9.6 MG/DL (8.3-10.6); CARBON DIOXIDE LEVEL 32 MMOL/L (20-31); CHLORIDE LEVEL 102 MMOL/L (98-107); CREATININE FOR GFR 0.96 MG/DL (0.55-1.30); GLOMERULAR FILTRATION RATE 59.8 (>39); GLUCOSE, FASTING 127 MG/DL (74-106); POTASSIUM SERUM 4.1 MMOL/L (3.5-5.1); SODIUM LEVEL 141 MMOL/L (136-145)
== END ==
LOC: M WUC 08:39
PROVIDERS: ATTEND Internal Medicine Gastroenterology
DX: R10.84 Generalized abdominal pain (principal); R63.4 Abnormal weight loss; R63.0 Anorexia

== ENCOUNTER → 2024-10-19 | Outpatient (REF) | payer MEDICARE, OTHER ==
[~2024-10-19] MED LIST changes: +DENO60SY2 SC; -PROL60SO SC
== END ==
LOC: M LAB REF 16:52
PROVIDERS: ATTEND Physician Assistant
DX: J06.9 Acute upper respiratory infection, unspecified (principal)

== ENCOUNTER → 2024-11-01 | Outpatient (REF) | payer MEDICARE, OTHER | LOC: M LAB REF 12:20 | PROVIDERS: ATTEND Internal Medicine Gastroenterology | DX: K21.9 Gastro-esophageal reflux disease without esophagitis (principal); K59.00 Constipation, unspecified; R14.1 Gas pain; K29.70 Gastritis, unspecified, without bleeding ==

== ENCOUNTER → 2024-11-27 | Outpatient (CLI) | payer MEDICARE, OTHER ==
[~2024-11-27] MED LIST changes: +BUPR-670 PO; -BUPR1TAB52 PO
== END ==
LOC: M WUC 11:09
PROVIDERS: ATTEND Internal Medicine Cardiovascular Disease
DX: R07.9 Chest pain, unspecified (principal)

== ENCOUNTER → 2024-12-18 | Outpatient (CLI) | payer MEDICARE, OTHER ==
[2024-12-18 18:21] LABS: FOLATE 9.24 NG/ML (>5.4); T UPTAKE 28.9 % (22.5-37.0)
[2024-12-18 18:22] LABS: FREE T4 0.89 NG/DL (0.89-1.76); FREE THYROXINE INDEX 1.8 % (1.3-4.8); THYROID STIMULATING HORMONE 2.096 uIU/ML (0.55-4.78); THYROXINE (T4) 6.1 UG/DL (4.5-10.9)
[2024-12-18 18:40] LABS: HEMOGLOBIN A1c 5.6 % (4.0-6.0)
== END ==
LOC: M WUC 13:49
PROVIDERS: ATTEND Psychiatry & Neurology Neurology
DX: G62.9 Polyneuropathy, unspecified (principal); E07.9 Disorder of thyroid, unspecified

== ENCOUNTER → 2025-02-08 | Outpatient (REF) | payer MEDICARE, OTHER ==
[~2025-02-08] MED LIST changes: +DEPA250T PO; -DEPA250T2 PO
[2025-02-08 18:39] LABS: APPEARANCE, URINE HAZY (CLEAR); BACTERIA, URINE AUTO 2+ (NEGATIVE); BILIRUBIN, URINE AUTO NEGATIVE (NEGATIVE); BLOOD, URINE BLOOD 1+ (NEGATIVE); GLUCOSE, URINE (UA) AUTO NEGATIVE (NEGATIVE); KETONE, URINE AUTO NEGATIVE (NEGATIVE); LEUKOCYTE ESTERASE, URINE AUTO 3+ (NEGATIVE); MUCUS, URINE SMALL (NEGATIVE); NITRITE, URINE AUTO POSITIVE (NEGATIVE); PROTEIN, URINE AUTO NEGATIVE (NEGATIVE); RBC, URINE AUTO 0 /HPF (0-3); SPECIFIC GRAVITY URINE AUTO 1.005 (1.002-1.035); SQUAMOUS EPITHELIAL CELL UR AU 0 /HPF (0-6); UROBILINOGEN, URINE AUTO 0.2 mg/dL (0.0-2.0); WBC, URINE AUTO 54 /HPF (0-3)
== END ==
LOC: M SMT 16:56
PROVIDERS: ATTEND Physician Assistant
DX: R39.9 Unspecified symptoms and signs involving the genitourinary system (principal)

== ENCOUNTER → 2025-02-21 | Outpatient (CLI) | payer MEDICARE, OTHER ==
[2025-02-21 14:41] LABS: BASO # 0.1 10^3/uL (0.0-0.2); BASO % 0.8 % (0.0-1.0); EOS # 0.2 10^3/uL (0.0-0.5); EOS % 3.2 % (0.0-3.0); LYMPH # 1.2 10^3/uL (1.5-5.0); LYMPH % 20.0 % (24.0-44.0); MONO # 0.5 10^3/uL (0.0-0.8); MONO % 8.5 % (2.0-8.0); NEUTROPHILS # 4.0 10^3/uL (1.5-8.5); NEUTROPHILS % 67.2 % (36.0-66.0); PLATELET COUNT, AUTOMATED 231 10^3/uL (150-450)
[2025-02-21 15:02] LABS: ERYTHROCYTE SEDIMENTATION RATE 44 mm/hr (0-30)
[2025-02-21 15:13] LABS: C REACTIVE PROTEIN QUANTITATIV < 0.50 MG/DL (<1.0)
== END ==
LOC: M WUC 12:18
PROVIDERS: ATTEND Family Medicine
DX: R07.81 Pleurodynia (principal); R30.0 Dysuria; M54.6 Pain in thoracic spine

== ENCOUNTER → 2025-03-01 | Outpatient (REF) | payer MEDICARE, OTHER ==
[2025-03-01 14:00] LABS: APPEARANCE, URINE HAZY (CLEAR); BACTERIA, URINE AUTO 1+ (NEGATIVE); BILIRUBIN, URINE AUTO NEGATIVE (NEGATIVE); BLOOD, URINE BLOOD 1+ (NEGATIVE); GLUCOSE, URINE (UA) AUTO 1+ mg/dL (NEGATIVE); KETONE, URINE AUTO NEGATIVE (NEGATIVE); LEUKOCYTE ESTERASE, URINE AUTO 2+ (NEGATIVE); MUCUS, URINE SMALL (NEGATIVE); NITRITE, URINE AUTO POSITIVE (NEGATIVE); PROTEIN, URINE AUTO NEGATIVE (NEGATIVE); RBC, URINE AUTO 4 /HPF (0-3); SPECIFIC GRAVITY URINE AUTO 1.013 (1.002-1.035); SQUAMOUS EPITHELIAL CELL UR AU 2 /HPF (0-6); UROBILINOGEN, URINE AUTO 0.2 mg/dL (0.0-2.0); WBC, URINE AUTO 42 /HPF (0-3)
== END ==
LOC: M SMT 12:50
PROVIDERS: ATTEND Nurse Practitioner Family
DX: R39.9 Unspecified symptoms and signs involving the genitourinary system (principal)

== ENCOUNTER → 2025-03-03 | Outpatient (REF) | LOC: M CAHLAB 08:47 | PROVIDERS: ATTEND Emergency Medicine | DX: Z01.89 Encounter for other specified special examinations (principal) ==

== ENCOUNTER → 2025-03-26 | Outpatient (REF) | payer MEDICARE, OTHER | LOC: M LAB REF 11:36 | PROVIDERS: ATTEND Internal Medicine Gastroenterology | DX: R63.4 Abnormal weight loss (principal); R10.84 Generalized abdominal pain; R19.7 Diarrhea, unspecified; A04.0 Enteropathogenic Escherichia coli infection ==

== ENCOUNTER → 2025-03-27 | Outpatient (REF) | payer MEDICARE, OTHER ==
[2025-03-27 15:10] LABS: CALCIUM LEVEL 9.0 MG/DL (8.3-10.6); CARBON DIOXIDE LEVEL 28.0 MMOL/L (20-31); CHLORIDE LEVEL 107.0 MMOL/L (98-107); CREATININE FOR GFR 1.04 MG/DL (0.55-1.30); GLOMERULAR FILTRATION RATE 54.7 (>39); POTASSIUM SERUM 3.6 MMOL/L (3.5-5.1); SODIUM LEVEL 145.0 MMOL/L (136-145)
[2025-03-27 15:13] LABS: FREE T4 1.08 NG/DL (0.89-1.76); TOTAL 25(OH) VITAMIN D 62.1 NG/ML (20.0-100.0)
== END ==
LOC: M LABWUC 14:27
PROVIDERS: ATTEND Nurse Practitioner Family
DX: E55.9 Vitamin D deficiency, unspecified (principal); M81.0 Age-related osteoporosis without current pathological fracture; E05.90 Thyrotoxicosis, unspecified without thyrotoxic crisis or storm

== ENCOUNTER → 2025-04-03 | Outpatient (REF) | payer MEDICARE, OTHER | LOC: M LAB REF 16:48 | PROVIDERS: ATTEND Physician Assistant | DX: N39.0 Urinary tract infection, site not specified (principal) ==

== ENCOUNTER → 2025-05-25 | Outpatient (REF) | payer MEDICARE, OTHER | LOC: M LAB REF 14:50 | PROVIDERS: ATTEND Physician Assistant | DX: R30.0 Dysuria (principal) ==

== ENCOUNTER → 2025-07-31 | Outpatient (CLI) | payer MEDICARE, OTHER | LOC: M PLAIMG 11:49 | PROVIDERS: ATTEND Physician Assistant | DX: R06.02 Shortness of breath (principal) ==